=== PATIENT | female | born 1940 | race Caucasian/White ===

== ENCOUNTER 2016-06-30 13:07 | Inpatient (IN) | payer OTHER ==
--- NOTE | 2016-06-30 13:25 | PDOC ---
History of Present Illness - General History Source: Patient Exam Limitations: No Limitations - History of Present Illness Initial Comments: 06/30/16 14:03 The patient is a 75 year old female brought via EMS, with a significant past medical history of COPD on home O2 (2 liters), anemia, HTN, HLD and lower extremity DVT, who presents to the emergency department with shortness of breath for the last couple of days. She states that she has been having a cough as well for an undisclosed amount of time, that is dry in nature. She notes that she has been compliant with all her medication and has not been eating any salty foods. She also notes that she has had lower extremity swelling in the past. The patient denies chest pain, headache and dizziness. Denies fever, chills, nausea, vomit, diarrhea and constipation. Denies dysuria, frequency, urgency and hematuria. Allergies: None Past surgical history: None reported Social history: Former smoker PMD - Dr. Ahumada Cardiology - Dr. Basilio Pulmonology - Dr. Patel <Rubio Ny - Last Filed: 06/30/16 14:22> - General History Source: Patient, Old Records Exam Limitations: No Limitations <Maria Dolores Vieira - Last Filed: 06/30/16 15:18> - General Chief Complaint: Shortness of Breath Stated Complaint: DIFFICULTY BREATHING Time Seen by Provider: 06/30/16 13:25 Past History <Rubio Ny - Last Filed: 06/30/16 14:22> - Past Medical History Anemia: Yes (BLOOD TRANSFUSION) Asthma: No Cancer: No Cardiac Disorders: No CVA: No COPD: Yes (USES O2 AT HOME 2 LITERS) CHF: No Dementia: No Diabetes: No GI Disorders: Yes Disorders: No HTN: Yes Hypercholesterolemia: Yes Liver Disease: No Suicide Attempt (Hx): No Seizures: No Thyroid Disease: No - Surgical History Abdominal Surgery: No Appendectomy: No Cardiac Surgery: No Cholecystectomy: No Lung Surgery: No Neurologic Surgery: No Orthopedic Surgery: No - Psycho/Social/Smoking Cessation Hx Anxiety: No Suicidal Ideation: No Smoking Status: Yes Smoking History: Former smoker Have you smoked in the past 12 months: No Number of Cigarettes Smoked Daily: 0 If you are a former smoker, when did you quit?: Over 15 years ago Information on smoking cessation initiated: No Hx Alcohol Use: No Drug/Substance Use Hx: No Substance Use Type: None Hx Substance Use Treatment: No <IshaMaria Dolores - Last Filed: 06/30/16 15:18> - Past Medical History Allergies/Adverse Reactions: Allergies Allergy/AdvReac Type Severity Reaction Status Date / Time No Known Allergies Allergy Verified 06/30/16 13:14 Home Medications: Ambulatory Orders Albuterol Sulfate [Proair Hfa -] 1 - 2 inh PO PRN PRN 10/15/11 Fluticasone/Salmeterol [Advair 250-50 Diskus] 1 each IH BID 10/15/11 Tiotropium [place] [Spiriva] 18 mcg IH DAILY 10/15/11 Albuterol Sulfate Inhaler - [Ventolin HFA Inhaler -] 2 inh IH Q4H PRN #0 inh 20/04 Montelukast Na [Singulair -] 10 mg PO HS #0 tablet 10/20/11 Multivitamins [Multivit ([facility] Formulary)] 1 udtab PO DAILY #0 tab 10/20/11 Sodium Chloride Nasal [place] [[place] Nasal [place] -] 2 spray NS TID #0 spraybtl 10/20/11 Ferrous Sulfate [Feosol] 325 mg PO DAILY 01/18/12 Calcium Carbonate/Vitamin D3 [Calcium 600-Vit D3 200 Tablet] 1 each PO DAILY 10/13 Docosahexanoic Acid/Epa [Fish Oil Softgel] 1 each PO DAILY 11/05/12 Potassium Chloride [K-Dur] 20 meq PO DAILY #0 tab.er.prt 11/05/12 Alendronate Sodium [Fosamax] 35 mg PO WEEKLY 09/01/15 Atorvastatin Ca [Lipitor] 10 mg PO HS 09/01/15 Latanoprost 0.005% Eye Drops [Xalatan 0.005% Eye Drops -] 1 drop OU HS 09/01/15 Diltiazem Cd [Cardizem Cd -] 180 mg PO BID #60 cap.cd.24h 09/02/15 Torsemide 40 mg PO BID #120 tablet 09/02/15 Azithromycin 250 mg PO DAILY 06/30/16 Diltiazem Cd [Cardizem Cd -] 180 mg PO BID 06/30/16 Potassium Chloride [Klor-Con M20] 20 meq PO AM 06/30/16 Review of Systems - Review of Systems Able to Perform ROS?: Yes Comments:: 06/30/16 14:04 GENERAL/CONSTITUTIONAL: No fever or chills. No weakness. HEAD, EYES, EARS, NOSE AND THROAT: No change in vision. No ear pain or discharge. No sore throat. CARDIOVASCULAR: +Shortness of breath. No chest pain RESPIRATORY: +Cough. No wheezing, or hemoptysis. GASTROINTESTINAL: No nausea, vomiting, diarrhea or constipation. GENITOURINARY: No dysuria, frequency, or change in urination. MUSCULOSKELETAL: No joint or muscle swelling or pain. No neck or back pain. SKIN: No rash NEUROLOGIC: No headache, vertigo, loss of consciousness, or change in strength/ sensation. ENDOCRINE: No increased thirst. No abnormal weight change HEMATOLOGIC/LYMPHATIC: No anemia, easy bleeding, or history of blood clots. ALLERGIC/IMMUNOLOGIC: No hives or skin allergy. <Rubio Ny - Last Filed: 06/30/16 14:22> *Physical Exam - Vital Signs Last Vital Signs Temp Pulse Resp BP Pulse Ox 99.1 F 101 H 20 123/78 94 L 06/30/16 13:15 06/30/16 13:26 06/30/16 13:15 06/30/16 13:15 06/30/16 13:26 - Physical Exam Comments: 06/30/16 14:04 GENERAL: Awake, alert, and fully oriented, in no acute distress HEAD: No signs of trauma, normocephalic, atraumatic EYES: PERRLA, EOMI, sclera anicteric, conjunctiva clear ENT: Auricles normal inspection, hearing grossly normal, nares patent, oropharynx clear without exudates. Moist mucosa NECK: Normal ROM, supple, no lymphadenopathy, JVD, or masses LUNGS: +Distant breath sounds but equal bilaterally. No distress, speaks full sentences, clear to auscultation bilaterally HEART: Regular rate and rhythm, normal S1 and S2, no murmurs, rubs or gallops, peripheral pulses normal and equal bilaterally. ABDOMEN: Soft, nontender, normoactive bowel sounds. No guarding, no rebound. No masses EXTREMITIES: +2+ pitting edema bilaterally. Erythema of the distal fibular region left greater than right. Normal range of motion. No clubbing or cyanosis. NEUROLOGICAL: Cranial nerves II through XII grossly intact. Normal speech, normal gait, no focal sensorimotor deficits SKIN: Warm, Dry, normal turgor, no rashes or lesions noted <Rubio Ny - Last Filed: 06/30/16 14:22> - Vital Signs Last Vital Signs Temp Pulse Resp BP Pulse Ox 99.1 F 101 H 20 123/78 88 L 06/30/16 13:15 06/30/16 13:15 06/30/16 13:15 06/30/16 13:15 06/30/16 13:15 <Maria Dolores Vieira - Last Filed: 06/30/16 15:18> ED Treatment Course - RADIOLOGY Radiograph Interpretation: 06/30/16 14:22 Chest X-Ray Reviewed by: Dr. Jose Chavez Impression: No significant interval change or acute lung disease is present. <Rubio Ny - Last Filed: 06/30/16 14:22> - LABORATORY CBC & Chemistry Diagram: 06/30/16 13:45 06/30/16 13:45 <Maria Dolores Vieira - Last Filed: 06/30/16 15:18> Medical Decision Making - Medical Decision Making 06/30/16 14:27 75-year-old female with history of hypertension, anemia, COPD on home O2, DVT last year and CHF exacerbation who presents to the emergency department with three-day history of progressive shortness of breath and lower extremity swelling. Differential diagnosis includes but is not limited to: Pneumonia, influenza, ACS, CHF, COPD exacerbation, anemia, electrolyte abnormality, toxic/ metabolic derangement. Plan: 1. EKG 2. Chest x-ray 3. Labs 4. Urine analysis 5. Influenza PCR 6. DuoNeb treatment 7. Observe and reevaluate 06/30/16 15:16 Addendum: The labs were reviewed and are noted in the EMR. The hemoglobin is 6.2 which is significantly lower than her baseline. Rectal exam showed brown stool (hemoccult results are pending). CXR is negative for acute infiltrate. Will admit to telemetry for serial cardiac markers, anemia work-up and monitoring of SOB. <Maria Dolores Vieira - Last Filed: 06/30/16 15:18> *DC/Admit/Observation/Transfer - Attestations Scribe Attestion: 06/30/16 14:05 Documentation prepared by Rubio Ny, acting as medical doctor md for Maria Dolores Vieira MD <Rubio Ny - Last Filed: 06/30/16 14:22> - Discharge Dispostion Admit: Yes - Attestations Physician Attestion: 06/30/16 14:29 I, Dr. Maria Dolores Vieira, attest that the scribes documentation that appears above has been prepared under my direction and personally reviewed by me in its entirety. I confirmed that the note above accurately reflects all work, treatment, procedures, and medical decision-making performed by me. <Maria Dolores Vieira - Last Filed: 06/30/16 15:18> Diagnosis at time of Disposition: SOB (shortness of breath), Anemia, COPD exacerbation - Discharge Dispostion Condition at time of disposition: Stable - Referrals Referrals: Kaleb Ahumada MD [Primary Care Provider] -
[2016-06-30 13:32] VITALS: BMI 21.9
[2016-06-30] MEDS ORDERED: ALBUTEROL SO4 0.083% IH SOL 2.5 MG/3 ML VIAL.NEB. NEB ONE ×2 (13:44→22:12)
[2016-06-30] MEDS ORDERED: IPRATROPIUM BR 0.02% 0.5 MG/2.5 ML VIAL.NEB. NEB ONE (13:44)
[2016-06-30] MEDS ORDERED: ALBUTEROL SO4 2.5/IPRATROPIUM 0.5 INH SOL 3 ML VIAL.NEB. NEB ONE (13:47)
[2016-06-30 14:30] LABS: BASOPHIL 0.7 % (0-2.0); EOSINOPHIL 0.2 % (0-4.5); MCHC 28.4 g/dl (32.0-36.0); MEAN CELL VOLUME 59.7 fl (80-96); MEAN PLT VOLUME 8.5 fl (7.5-11.1); PLATELET COUNT 120 K/MM3 (134-434); RDW 21.8 % (11.6-15.6); WHITE BLOOD COUNT 9.4 K/mm3 (4.0-10.0)
[2016-06-30 14:33] LABS: MCH 16.9 pg (25.7-33.7)
[2016-06-30 14:57] LABS: ALBUMIN 3.7 g/dl (3.4-5.0); ANION GAP 10 (8-16); CALCIUM 9.4 mg/dL (8.5-10.1); CO2 38 mmol/L (21-32); CREATININE 0.8 mg/dL (0.55-1.02); GLUCOSE,RANDOM 86 mg/dL (74-106); SGOT/AST 25 U/L (15-37); SGPT/ALT 27 U/L (12-78)
[2016-06-30] MEDS ORDERED: predniSONE 20 MG TABLET (UD) PO ONE (15:01)
[2016-06-30 15:02] LABS: ALK PHOS 89 U/L (45-117); BILIRUBIN,TOTAL 0.3 mg/dL (0.2-1.0); TOT PROT 6.9 g/dl (6.4-8.2); TROPONIN I < 0.02 ng/ml (0.00-0.05)
[2016-06-30] MEDS ORDERED: predniSONE 20 MG TABLET (UD) ONE (15:29)
[2016-06-30 15:31] LABS: INR 0.96 (0.82-1.09); PROTHROMBIN TIME (PATIENT) 10.6 SEC (9.98-11.88)
[2016-06-30 15:34] LABS: ACTIVATED PTT 28.5 SECONDS (26.9-34.4)
[2016-06-30 15:38] LABS: ANISOCYTOSIS 3+; HYPOCHROMIA 4+; MICROCYTOSIS 3+
[2016-06-30 15:39] LABS: TARGET CELLS 1+
[2016-06-30] MEDS ORDERED: ALBUTEROL SO4 2.5/IPRATROPIUM 0.5 INH SOL 3 ML VIAL.NEB. NEB PRN (16:28)
--- NOTE | 2016-06-30 16:34 | HP ---
Admitting History and Physical - Primary Care Physician PCP: Kaleb Ahumada - Admission Chief Complaint: I couldn't breathe History of Present Illness: Ms Hadley is a very pleasant 75 year old female who comes in with difficulty breathing. She says it began about a week ago. At first it was minimal and noticed only on significant exertion, however it progressed to the point where she was feeling it constantly and at rest. She wears chronic oxygen and notes it was not helping the shortness of breath. She says she is unable to lie flat all the time and needs two pillows, this did not change. She noticed worsening swelling in her legs but that was minimal as well. She says that she was trying to treat this at home but the shortness of breath became so severe she needed to come in for further evaluation. She denies lightheadedness, dizziness, passing out, chest pain, coughing, nausea, vomiting, diarrhea, constipation, dark black stool, difficulty or pain on urination, change in color of her urine , or redness in her legs. She is still feeling short of breath now. History Source: Patient Limitations to Obtaining History: No Limitations - Past Medical History Cardiovascular: Yes: HTN Pulmonary: Yes: COPD Heme/Onc: Yes: Anemia Musculoskeletal: Yes: Osteoarthritis - Past Surgical History Past Surgical History: Yes: None - Smoking History Smoking history: Former smoker Have you smoked in the past 12 months: No Aproximately how many cigarettes per day: 0 If you are a former smoker, when did you quit?: Over 15 years ago - Alcohol/Substance Use Hx Alcohol Use: No History of Substance Use: reports: None - Social History Usual Living Arrangement: Yes: Alone ADL: Independent 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, , 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 History of Recent Travel: No Home Medications - Allergies Allergies/Adverse Reactions: Allergies Allergy/AdvReac Type Severity Reaction Status Date / Time No Known Allergies Allergy Verified 06/30/16 13:14 - Home Medications Home Medications: Ambulatory Orders Albuterol Sulfate [Proair Hfa -] 1 - 2 inh PO PRN PRN 10/15/11 Fluticasone/Salmeterol [Advair 250-50 Diskus] 1 each IH BID 10/15/11 Tiotropium [place] [Spiriva] 18 mcg IH DAILY 10/15/11 Montelukast Na [Singulair -] 10 mg PO HS #0 tablet 10/20/11 Multivitamins [Multivit ([facility] Formulary)] 1 udtab PO DAILY #0 tab 10/20/11 Sodium Chloride Nasal [place] [[place] Nasal [place] -] 2 spray NS TID #0 spraybtl 10/20/11 Ferrous Sulfate [Feosol] 325 mg PO DAILY 01/18/12 Calcium Carbonate/Vitamin D3 [Calcium 600-Vit D3 200 Tablet] 1 each PO DAILY 10/13 Docosahexanoic Acid/Epa [Fish Oil Softgel] 1 each PO DAILY 11/05/12 Potassium Chloride [K-Dur] 20 meq PO DAILY #0 tab.er.prt 11/05/12 Alendronate Sodium [Fosamax] 35 mg PO KELLER 09/01/15 Atorvastatin Ca [Lipitor] 10 mg PO HS 09/01/15 Latanoprost 0.005% Eye Drops [Xalatan 0.005% Eye Drops -] 1 drop OU HS 09/01/15 Torsemide 40 mg PO BID #120 tablet 09/02/15 Diltiazem Cd [Cardizem Cd -] 180 mg PO BID 06/30/16 Diphenhydramine HCl [Benadryl -] 25 mg PO Q6H PRN 06/30/16 Pantoprazole Sodium 40 mg PO DAILY 06/30/16 Family Disease History - Family Disease History Family Disease History: Heart Disease: Father, Other: Mother (Alzheimers Dementia) Review of Systems Findings/Remarks: Full review of systems obtained, as per HPI and otherwise negative Physical Examination Vital Signs: Vital Signs Temperature 99.1 F 06/30/16 13:15 Pulse Rate 101 H 06/30/16 13:26 Respiratory Rate 20 06/30/16 13:15 Blood Pressure 123/78 06/30/16 13:15 O2 Sat by Pulse Oximetry (%) 94 L 06/30/16 13:26 Constitutional: Yes: Well Nourished, No Distress, Calm, Pallor Eyes: Yes: Conjunctiva Clear, EOM Intact, PERRL HENT: Yes: Atraumatic, Normocephalic Cardiovascular: Yes: Regular Rate and Rhythm. No: Gallop, Murmur, Rub Respiratory: Yes: Regular, CTA Bilaterally, On Nasal O2. No: Rales, Rhonchi, Wheezes Gastrointestinal: Yes: Normal Bowel Sounds, Soft. No: Distention, Tenderness Extremities: Yes: WNL Edema: Yes Edema: LLE: 1+, RLE: 1+ Labs: CBC, BMP 06/30/16 13:45 06/30/16 13:45 Imaging - Results Chest X-ray: Report Reviewed, Image Reviewed EKG: Image Reviewed Problem List - Problems (1) Anemia Assessment/Plan: -symptomatic anemia with shortness of breath -has history of anemia, on iron -will check anemia labs -stool for occult blood -hematology consult -transfusion ordered by ER physician Code(s): D64.9 - ANEMIA, UNSPECIFIED (2) SOB (shortness of breath) Assessment/Plan: -most likely secondary to anemia -however will admit to telemetry and rule out for ACS -cardiac enzymes x3, first set negative Code(s): R06.02 - SHORTNESS OF BREATH (3) CHF (congestive heart failure) Assessment/Plan: -patient with slightly increased swelling in her lower extremities per history -chest x-ray clear, SOB not from CHF exacerbation -continue torsemide -cardiology consult Code(s): I50.9 - HEART FAILURE, UNSPECIFIED (4) Hypertension Assessment/Plan: -continue diltiazem and torsemide -monitor Code(s): I10 - ESSENTIAL (PRIMARY) HYPERTENSION (5) COPD (chronic obstructive pulmonary disease) Assessment/Plan: -baseline -continue home regimen -consult Dr Patel, outpatient invoice clerk Code(s): J44.9 - CHRONIC OBSTRUCTIVE PULMONARY DISEASE, UNSPECIFIED
--- NOTE | 2016-06-30 17:44 | CON.CARD ---
Consult Consult Specialty:: cardio Referred by:: claudia Reason for Consultation:: sob - History of Present Illness Chief Complaint: sob History of Present Illness: 75 yo female here with progressive sob. sx's have worsened from mostly on exertion to now also at rest. her usual home O2 is not helping relieve her sx's started noticing the sob about 1 week ago but signif worse the past few days and today was much worse. wheezing the past couple of days as well. legs much more swollen than usual (baseline is feet only). says her usual wt runs 120-122 lbs, hasn't checked recently. thinks abdomen is slightly swollen/distended as well. scattered mild cough, dry. sore throat x 3d; no fever/chills; felt very tired today; nausea/dry heaves yest no cp/pressure/heaviness at all pt here 09/15 with sob. treated for both a.e. copd and acute diast chf at that time. lasix 80 iv bid given (had been on lasix 40 po bid as outpt)--labs were stable with this tx for 2-3d, then d/c'd after brief stay (? sent out on torsemide 40 bid per d/c summary). 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 History of Recent Travel: No Home Medications - Allergies Allergies/Adverse Reactions: Allergies Allergy/AdvReac Type Severity Reaction Status Date / Time No Known Allergies Allergy Verified 06/30/16 13:14 - Home Medications Home Medications: Ambulatory Orders Albuterol Sulfate [Proair Hfa -] 1 - 2 inh PO PRN PRN 10/15/11 Fluticasone/Salmeterol [Advair 250-50 Diskus] 1 each IH BID 10/15/11 Tiotropium [place] [Spiriva] 18 mcg IH DAILY 10/15/11 Montelukast Na [Singulair -] 10 mg PO HS #0 tablet 10/20/11 Multivitamins [Multivit ([facility] Formulary)] 1 udtab PO DAILY #0 tab 10/20/11 Sodium Chloride Nasal [place] [[place] Nasal [place] -] 2 spray NS TID #0 spraybtl 10/20/11 Ferrous Sulfate [Feosol] 325 mg PO DAILY 01/18/12 Calcium Carbonate/Vitamin D3 [Calcium 600-Vit D3 200 Tablet] 1 each PO DAILY 10/13 Docosahexanoic Acid/Epa [Fish Oil Softgel] 1 each PO DAILY 11/05/12 Potassium Chloride [K-Dur] 20 meq PO DAILY #0 tab.er.prt 11/05/12 Alendronate Sodium [Fosamax] 35 mg PO KELLER 09/01/15 Atorvastatin Ca [Lipitor] 10 mg PO HS 09/01/15 Latanoprost 0.005% Eye Drops [Xalatan 0.005% Eye Drops -] 1 drop OU HS 09/01/15 Torsemide 40 mg PO BID #120 tablet 09/02/15 Diltiazem Cd [Cardizem Cd -] 180 mg PO BID 06/30/16 Diphenhydramine HCl [Benadryl -] 25 mg PO Q6H PRN 06/30/16 Pantoprazole Sodium 40 mg PO DAILY 06/30/16 Family Disease History - Family Disease History Family Disease History: Heart Disease: Father, Other: Mother (Alzheimers Dementia) Review of Systems - Review of Systems Constitutional: denies: Chills, Fever Eyes: denies: Eye Pain HENT: denies: Nasal Congestion Neck: denies: Stiffness Cardiovascular: denies: Palpitations Respiratory: denies: Orthopnea, PND Gastrointestinal: denies: Diarrhea, Rectal Bleeding Genitourinary: denies: Burning, Hematuria Musculoskeletal: denies: Muscle Pain Integumentary: denies: Rash Neurological: denies: Numbness, Seizure, Syncope Endocrine: denies: Excessive Sweating Hematology/Lymphatic: denies: Excessive Bleeding Vital Signs: Vital Signs Temperature 99.1 F 06/30/16 13:15 Pulse Rate 94 H 06/30/16 16:35 Respiratory Rate 17 06/30/16 16:35 Blood Pressure 119/63 06/30/16 16:35 O2 Sat by Pulse Oximetry (%) 100 06/30/16 16:35 Constitutional: Yes: Well Nourished, No Distress Eyes: No: Sclera Icterus HENT: No: Nasal Congestion Neck: No: Decreased ROM Respiratory: Yes: CTA Bilaterally. No: Accessory Muscle Use, Rales (-), Wheezes Gastrointestinal: Yes: Normal Bowel Sounds. No: Distention, Hepatomegaly, Palpable Mass, Tenderness Cardiovascular: Yes: Regular Rate and Rhythm JVD: No Carotid Bruit: No PMI: Non-Displaced Heart Sounds: Yes: S1, S2. No: Gallop Murmur: No: Systolic Murmur, Diastolic Murmur Musculoskeletal: Yes: Other (No kyphosis) Extremities: No: Cold, Cyanosis Edema: Yes (2+ pretibs bilat) Peripheral Pulses: 2+ Left Carotid, 2+ Right Carotid, 2+ Left Doralis Pedis, 2+ Right Dorsalis Pedis Integumentary: No: Jaundice Neurological: Yes: Alert, Oriented (x3) Psychiatric: No: Agitated - Other Data Labs, Other Data: INR, PTT INR 0.96 (0.82-1.09) 06/30/16 15:00 Laboratory Tests 08/30/15 09/02/15 06/30/16 21:30 06:00 13:45 WBC 9.4 Hgb 8.9 L 6.2 L* D Plt Count 120 L D Sodium Potassium Carbon Dioxide BUN Creatinine AST ALT Creatine Kinase Troponin I B-Natriuretic Peptide 611.07 H 06/30/16 13:45 WBC Hgb Plt Count Sodium 140 Potassium 3.5 Carbon Dioxide 38 H BUN 18 D Creatinine 0.8 AST 25 ALT 27 Creatine Kinase 88 Troponin I < 0.02 B-Natriuretic Peptide 645.36 H ekg 06/30 (ER): NSR, normal asix/interv; WNL Imaging - Results Chest X-ray: Report Reviewed, Image Reviewed Assessment/Plan Echo 08/16: nl LV/EF; RV tds; nl LA; valves WNL; RVSP 40-50 acute SOB, acute diast chf: -BNP 600s, similar to when was here with probable chf 08/16 -? sx's due to worsening anemia with hgb 6 -CXR with no vasc redistribution pattern, no effusions--diffuse incr'd markings ? chronic (copd)--incr'd vs prior 08/16 on my review but ? technique-related ( i.e. differences in penetratino); no signif cardiomegaly -leg swelling is signif incr'd lately (? abdomen as well per pt), raising suspicion for chf though i cannot appreciate JVD on exam -has been complying with torsemide 40 bid at home she says -will start lasix 80 iv bid (diuresed well with this last time here) -close f/u of daily wts and BMP--low threshold to hold diuretics if bun/creat bumps (in which case her sx's are likely related to anemia) -no suspicion of ACS, enzymes neg x1 and ecg WNL mild pulm HTN: -estimated RVSP 40-50 on recent echo, RV not well seen on that report -? sec to LV diast chf vs ? hypoxic chronic lung dz (on home O2 for copd)-- these 2 dx's are extremely likely to represent the etiology of her pulm htn and tx directed at both (i.e. diuretics and supplemental O2/airways tx) is all that is indicated here COPD, ? with a.e.: -+ wheezing and mild URI sx's -defer to dr taylor +/- pulm as indicated, regarding airways-specific tx's -check ABG HTN: -well controlled -cont home meds anemia, chronic: -baseline hgb runs 8s-9s -currently 6's, likely symptomatic (sob) -PRBCs +/- further w/u of etiology per dr taylor NO NEED FOR TELEMETRY MONITORING
[2016-06-30] MEDS ORDERED: FUROSEMIDE 40 MG/4 ML INJECTABLE VIAL ONE (18:43)
[2016-06-30] MEDS: FUROSEMIDE 40 MG/4 ML INJECTABLE VIAL IVPUSH SCH (18:55)
[2016-06-30] MEDS ORDERED: TORSEMIDE 20 MG TABLET (FP) PO SCH (22:00)
[2016-06-30] MEDS: ACLIDINIUM BROMIDE 400 MCG/INH AERO.POWD IH SCH (22:22)
[2016-06-30] MEDS: MONTELUKAST NA 10 MG TABLET PO SCH (22:22)
[2016-06-30] MEDS: BUDESONIDE/FORMETEROL FUMARATE 80/4.5 mcg INHALER IH SCH (22:22)
[2016-06-30] MEDS: ATORVASTATIN CA 10 MG TABLET (FP) PO SCH (22:22)
[2016-06-30] MEDS: LATANOPROST 0.005% OPHTH SOLN 2.5ML BOTTLE OU SCH (22:23)
[2016-06-30] MEDS: SODIUM CHLORIDE NASAL SPRAY 44 ML BOTTLE NS SCH (22:23)
--- NOTE | 2016-06-30 22:37 | CONSULT ---
Consult Consult Specialty:: Oncology-hematology Referred by:: Dr. Zuniga Reason for Consultation:: Hypochromic, Microcytic anemia - History Source History Provided By: Patient Limitations to Obtaining History: No Limitations - Past Medical History Cardio/Vascular: Yes: HTN Pulmonary: Yes: COPD, Other (oxygen at home) Gastrointestinal: Yes: Other (History of ulcer disease diagnosed 3 years ago when patient presented with anemia) ...: No Heme/Onc: Yes: Anemia Musculoskeletal: Yes: Osteoarthritis - Past Surgical History Past Surgical History: Yes: None - Alcohol/Substance Use Hx Alcohol Use: No History of Substance Use: reports: None - Smoking History Smoking history: Former smoker Have you smoked in the past 12 months: No Aproximately how many cigarettes per day: 0 If you are a former smoker, when did you quit?: Over 15 years ago - Social History ADL: Independent 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, , 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 History of Recent Travel: No Home Medications - Allergies Allergies/Adverse Reactions: Allergies Allergy/AdvReac Type Severity Reaction Status Date / Time No Known Allergies Allergy Verified 06/30/16 13:14 - Home Medications Home Medications: Ambulatory Orders Albuterol Sulfate [Proair Hfa -] 1 - 2 inh PO PRN PRN 10/15/11 Fluticasone/Salmeterol [Advair 250-50 Diskus] 1 each IH BID 10/15/11 Tiotropium [place] [Spiriva] 18 mcg IH DAILY 10/15/11 Montelukast Na [Singulair -] 10 mg PO HS #0 tablet 10/20/11 Multivitamins [Multivit ([facility] Formulary)] 1 udtab PO DAILY #0 tab 10/20/11 Sodium Chloride Nasal [place] [[place] Nasal [place] -] 2 spray NS TID #0 spraybtl 10/20/11 Ferrous Sulfate [Feosol] 325 mg PO DAILY 01/18/12 Calcium Carbonate/Vitamin D3 [Calcium 600-Vit D3 200 Tablet] 1 each PO DAILY 10/13 Docosahexanoic Acid/Epa [Fish Oil Softgel] 1 each PO DAILY 11/05/12 Potassium Chloride [K-Dur] 20 meq PO DAILY #0 tab.er.prt 11/05/12 Alendronate Sodium [Fosamax] 35 mg PO KELLER 09/01/15 Atorvastatin Ca [Lipitor] 10 mg PO HS 09/01/15 Latanoprost 0.005% Eye Drops [Xalatan 0.005% Eye Drops -] 1 drop OU HS 09/01/15 Torsemide 40 mg PO BID #120 tablet 09/02/15 Diltiazem Cd [Cardizem Cd -] 180 mg PO BID 06/30/16 Diphenhydramine HCl [Benadryl -] 25 mg PO Q6H PRN 06/30/16 Pantoprazole Sodium 40 mg PO DAILY 06/30/16 Family Disease History - Family Disease History Family Disease History: Heart Disease: Father, Other: Mother (Alzheimers Dementia) Other Family History: No family history of ca Review of Systems - Review of Systems Constitutional: reports: Weakness. denies: Fever, Loss of Appetite, Night Sweats Eyes: denies: Double Vision, Recent Change in Vision HENT: reports: Difficult Swallowing. denies: Epistaxis, Throat Pain Neck: denies: Pain on Movement, Stiffness, Tenderness Cardiovascular: reports: Shortness of Breath. denies: Chest Pain Respiratory: reports: Exercise Intolerance, SOB, SOB on Exertion. denies: Cough , Hemoptysis Gastrointestinal: denies: Abdominal Pain, Bloating, Constipation, Diarrhea, Melena, Nausea, Rectal Bleeding, Vomiting Genitourinary: denies: Burning, Dysuria, Flank Pain, Frequency, Incontinence Musculoskeletal: denies: Back Pain, Extremity Pain, Muscle Pain Integumentary: denies: Blister, Bruising, Eczema, Erythema Neurological: reports: No Symptoms Endocrine: reports: No Symptoms Hematology/Lymphatic: denies: Easily Bruised, Excessive Bleeding, Swollen Glands Psychiatric: reports: No Symptoms Physical Exam Vital Signs: Vital Signs Temperature 98.8 F 06/30/16 19:44 Pulse Rate 102 H 06/30/16 19:44 Respiratory Rate 20 06/30/16 19:44 Blood Pressure 113/62 06/30/16 19:44 O2 Sat by Pulse Oximetry (%) 95 06/30/16 19:44 Constitutional: Yes: Mild Distress Eyes: Yes: PERRL. No: Diplopia, Ptosis, Sclera Icterus HENT: Yes: Atraumatic, Normocephalic. No: Hoarseness, Tonsillar Exudate Neck: Yes: Supple, Trachea Midline. No: Lymphadenopathy, Thyromegaly Cardiovascular: Yes: Regular Rate and Rhythm Respiratory: Yes: Rales, Wheezes Gastrointestinal: Yes: Normal Bowel Sounds, Soft. No: Hepatomegaly, Palpable Mass, Splenomegaly Renal/: No: Anuria, CVA Tenderness - Left Breast(s): Yes: WNL, Left, Right Musculoskeletal: No: Back Pain, Joint Swelling, Muscle Pain Extremities: No: Cold, Cool, Cyanosis Edema: LLE: 3+, RLE: 3+ Integumentary: No: Bruising, Erythema Neurological: Yes: WNL ...Motor Strength: WNL Psychiatric: Yes: WNL Problem List - Problems (1) Anemia Assessment/Plan: History of ulcer disease diagnosed 3 years ago when patient underwent last EGD and colonoscopy. Treated medically with PPI's. Last saw PCP, Dr. Ahumada several months ago and was not told of anemia. Presents now with hypochromic, microcytic anemia. Denies GI complaints of nausea , diarrhea, constipation, melena, hematochezia, abdominal pains. Likely diagnosis is blood loss anemia causing symptomatic SOB and dyspnea. Fe++ studies pending. To check for celiac disease and for HbE. Will obtain stool guaics and evaluate for hemolysis . Will need GI assessment. Code(s): D64.9 - ANEMIA, UNSPECIFIED
[2016-06-30] MEDS: ALBUTEROL SO4 0.5 % INH SOLN 2.5 MG/0.5 ML VIAL.NEB. NEB PRN (22:47)
[2016-06-30] MEDS ORDERED: PT OWN MED DRAWER 7, Y5N ONE (22:50)
[2016-07-01 00:28] LABS: TROPONIN I < 0.02 ng/ml (0.00-0.05)
[2016-07-01] MEDS: FUROSEMIDE 40 MG/4 ML INJECTABLE VIAL IVPUSH SCH ×2 (06:49→14:03)
[2016-07-01] MEDS: SODIUM CHLORIDE NASAL SPRAY 44 ML BOTTLE NS SCH ×3 (06:50→22:01)
[2016-07-01 07:46] LABS: BASOPHIL 0.4 % (0-2.0); MCH 20.8 pg (25.7-33.7); MEAN CELL VOLUME 67.1 fl (80-96); MEAN PLT VOLUME 8.5 fl (7.5-11.1); NEUTROPHILS 79.8 % (42.8-82.8); PLATELET COUNT 102 K/MM3 (134-434); RDW 29.8 % (11.6-15.6); WHITE BLOOD COUNT 8.5 K/mm3 (4.0-10.0)
[2016-07-01 08:23] LABS: CALCIUM 7.8 mg/dL (8.5-10.1)
[2016-07-01 08:29] LABS: URINE APPEARANCE CLEAR; URINE BILIRUBIN NEGATIVE (NEGATIVE); URINE BLOOD NEGATIVE (NEGATIVE); URINE COLOR STRAW; URINE GLUCOSE (UA) NEGATIVE (NEGATIVE); URINE KETONE NEGATIVE (NEGATIVE); URINE LEUK ESTERASE NEGATIVE (NEGATIVE); URINE NITRITE NEGATIVE (NEGATIVE); URINE PROTEIN NEGATIVE (NEGATIVE); URINE UROBILINOGEN NEGATIVE E.U./dl (0.2-1.0)
[2016-07-01 08:31] LABS: ANION GAP 8 (8-16); CO2 37 mmol/L (21-32); CREATININE 0.8 mg/dL (0.55-1.02); GLUCOSE,RANDOM 99 mg/dL (74-106); LDH 193 U/L (84-246); MAGNESIUM 2.6 mg/dL (1.8-2.4); PHOSPHOROUS 4.1 mg/dL (2.5-4.9); TROPONIN I < 0.02 ng/ml (0.00-0.05)
[2016-07-01] MEDS ORDERED: PANTOPRAZOLE 40 MG TABLET (FP) PO SCH (10:00)
[2016-07-01] MEDS ORDERED: PATIENT'S OWN MEDICATION (NON-FORMULARY) (Docosahexanoic Acid/Epa [Fish Oil Softgel] 1 EAC PO SCH (10:00)
[2016-07-01] MEDS ORDERED: PT OWN MED DRAWER 7, Y5N ONE ×3 (10:34→21:25)
[2016-07-01] MEDS: MULTIVITAMINS (DAILY MVI) TABLET (FP) PO SCH (10:36)
[2016-07-01] MEDS: BUDESONIDE/FORMETEROL FUMARATE 80/4.5 mcg INHALER IH SCH ×2 (10:37→22:02)
[2016-07-01] MEDS: CALCIUM 500MG/VIT-D 200 UNITS COMBO TABLET (FP) PO SCH (10:37)
[2016-07-01] MEDS: ACLIDINIUM BROMIDE 400 MCG/INH AERO.POWD IH SCH (10:37)
[2016-07-01] MEDS: POTASSIUM CHLORIDE TABS 20 MEQ TABLET.ER (FP) PO SCH (10:37)
[2016-07-01] MEDS: FERROUS SO4 325 MG TABLET (FP) PO SCH (10:37)
--- NOTE | 2016-07-01 10:52 | PN ---
Progress Note (short form) - Note Progress Note: s: no cp sob palps dizzy o: Vital Signs Period Temp Pulse Resp BP Sys/Ellis Pulse Ox Last 24 Hr 98.0 F-99.1 F 92-110 17-20 113-127/62-78 88-100 Constitutional: Yes: Well Nourished, No Distress Eyes: No: Sclera Icterus Respiratory: Yes: CTA Bilaterally. No: Accessory Muscle Use Gastrointestinal: Yes: Normal Bowel Sounds. No: Distention, Hepatomegaly, Palpable Mass, Tenderness Cardiovascular: Yes: Regular Rate and Rhythm JVD: No Heart Sounds: Yes: S1, S2. No: Gallop Murmur: No: Systolic Murmur, Diastolic Murmur Extremities: No: Cold, Cyanosis Edema: Yes (1-2+ pretibs bilat) Integumentary: No: Jaundice Neurological: Yes: Alert, Oriented (x3) Psychiatric: No: Agitated Current Medications Generic Name Dose Route Start Last Admin Trade Name Freq PRN Reason Stop Dose Admin Aclidinium [place] 1 puff 06/30/16 22:00 07/01/16 10:37 Tudorza - IH 1 puff BID JEANNA Administration Albuterol Sulfate 1 amp 06/30/16 16:35 06/30/16 22:47 Ventolin 0.5% - NEB 1 amp Q6H PRN Administration SHORT OF BREATH/WHEEZING Atorvastatin Calcium 10 mg 06/30/16 22:00 06/30/16 22:22 Lipitor - PO 10 mg HS JEANNA Administration Budesonide/Formoterol Fumarate 2 puff 06/30/16 22:00 07/01/16 10:37 Symbicort 80/4.5mcg - IH 2 inh BID JEANNA Administration Calcium Carbonate/Cholecalciferol 1 tab 07/01/16 10:00 07/01/16 10:37 Os-[place] 500+D - PO 1 tab DAILY JEANNA Administration Diltiazem HCl 180 mg 06/30/16 22:00 07/01/16 10:37 Cardizem Cd - PO 180 mg BID JEANNA Administration Ferrous Sulfate 325 mg 07/01/16 10:00 07/01/16 10:37 Feosol - PO 325 mg DAILY JEANNA Administration Furosemide 80 mg 06/30/16 18:15 07/01/16 06:49 Lasix Injection - IVPUSH 80 mg BID@0600,1400 JEANNA Administration Latanoprost 1 drop 06/30/16 22:00 06/30/16 22:23 Xalatan 0.005% Eye Drops - OU 1 drop HS JEANNA Administration Montelukast Sodium 10 mg 06/30/16 22:00 06/30/16 22:22 Singulair - PO 10 mg HS JEANNA Administration Multivitamins/Minerals/Vitamin C 1 tab 07/01/16 10:00 07/01/16 10:36 Tab-A-Vit - PO 1 tab DAILY JEANNA Administration Non-Formulary Medication 1 each 07/01/16 10:00 Docosahexanoic Acid/Epa [Fish Oil Softgel] PO DAILY JEANNA Pantoprazole Sodium 40 mg 07/01/16 10:00 07/01/16 10:37 Protonix - PO 40 mg DAILY JEANNA Administration Potassium Chloride 20 meq 07/01/16 10:00 07/01/16 10:37 K-Dur - PO 20 meq DAILY JEANNA Administration Sodium Chloride 2 spray 06/30/16 22:00 07/01/16 06:50 [place] Nasal [place] - NS 2 spray TID JEANNA Administration CBC, BMP 07/01/16 06:50 07/01/16 06:50 ekg 06/30 (ER): NSR, normal asix/interv; WNL Echo 08/16: nl LV/EF; RV tds; nl LA; valves WNL; RVSP 40-50 Assessment/Plan acute SOB, acute diast chf: -BNP 600s, similar to when was here with probable chf 08/16 -? sx's due to worsening anemia with hgb 6 -CXR with no sig chf -leg swelling is signif incr'd lately (? abdomen as well per pt), raising suspicion for chf though cannot appreciate JVD on exam -has been complying with torsemide 40 bid at home she says -will start lasix 80 iv bid (diuresed well with this last time here) -close f/u of daily wts and BMP--low threshold to hold diuretics if bun/creat bumps (in which case her sx's are likely more related to anemia) -no suspicion of ACS, enzymes neg x3 and ecg unremarkable mild pulm HTN: -estimated RVSP 40-50 on recent echo, RV not well seen on that report -? sec to LV diast chf vs ? hypoxic chronic lung dz (on home O2 for copd)-- these 2 dx's are extremely likely to represent the etiology of her pulm htn and tx directed at both (i.e. diuretics and supplemental O2/airways tx) is all that is indicated here COPD, ? with a.e.: -+ wheezing and mild URI sx's -defer to dr taylor +/- pulm as indicated, regarding airways-specific tx's HTN: -well controlled -cont home meds anemia, chronic: -baseline hgb runs 8s-9s -currently 6's on admit, likely symptomatic (sob) -today hgb in 7's after prbcs -PRBCs +/- further w/u of etiology per dr taylor, +/-GI -Pt has no cardiac contraindications (intermediate risk) to EGD/FOC if needed for anemia workup
[2016-07-01] MEDS: ALBUTEROL SO4 0.5 % INH SOLN 2.5 MG/0.5 ML VIAL.NEB. NEB PRN ×2 (12:24→18:10)
--- NOTE | 2016-07-01 13:28 | PN ---
Progress Note, Physician Chief Complaint: Ms Hadley says she is feeling better but still with dyspnea on exertion. No cp or n/v. - Current Medication List Current Medications: Active Medications Aclidinium [place] ([place]udorza -) 1 puff IH BID [facility] Last Admin: 07/01/16 10:37 Dose: 1 puff Albuterol Sulfate (Ventolin 0.5% -) 1 amp NEB Q6H PRN PRN Reason: SHORT OF BREATH/WHEEZING Last Admin: 07/01/16 12:24 Dose: 1 amp Atorvastatin Calcium (Lipitor -) 10 mg PO HS [facility] Last Admin: 06/30/16 22:22 Dose: 10 mg Budesonide/Formoterol Fumarate (Symbicort 80/4.5mcg -) 2 puff IH BID [facility] Last Admin: 07/01/16 10:37 Dose: 2 inh Calcium Carbonate/Cholecalciferol (Os-Misha 500+D -) 1 tab PO DAILY [facility] Last Admin: 07/01/16 10:37 Dose: 1 tab Diltiazem HCl (Cardizem Cd -) 180 mg PO BID [facility] Last Admin: 07/01/16 10:37 Dose: 180 mg Ferrous Sulfate (Feosol -) 325 mg PO DAILY [facility] Last Admin: 07/01/16 10:37 Dose: 325 mg Furosemide (Lasix Injection -) 80 mg IVPUSH BID@0600,1400 [facility] Last Admin: 07/01/16 06:49 Dose: 80 mg Latanoprost (Xalatan 0.005% Eye Drops -) 1 drop OU [facility] Last Admin: 06/30/16 22:23 Dose: 1 drop Montelukast Sodium (Singulair -) 10 mg PO HS [facility] Last Admin: 06/30/16 22:22 Dose: 10 mg Multivitamins/Minerals/Vitamin C (Tab-A-Vit -) 1 tab PO DAILY [facility] Last Admin: 07/01/16 10:36 Dose: 1 tab Pantoprazole Sodium (Protonix -) 40 mg PO DAILY [facility] Last Admin: 07/01/16 10:37 Dose: 40 mg Potassium Chloride (K-Dur -) 20 meq PO DAILY [facility] Last Admin: 07/01/16 10:37 Dose: 20 meq Sodium Chloride ([place] Nasal [place] -) 2 spray NS TID [facility] Last Admin: 07/01/16 06:50 Dose: 2 spray - Objective Vital Signs: Vital Signs Temperature 98.0 F 07/01/16 09:00 Pulse Rate 93 H 07/01/16 09:00 Respiratory Rate 18 07/01/16 09:00 Blood Pressure 127/68 07/01/16 09:00 O2 Sat by Pulse Oximetry (%) 96 06/30/16 22:00 Constitutional: Yes: Well Nourished, No Distress, Calm Cardiovascular: Yes: Regular Rate and Rhythm. No: Gallop, Murmur, Rub Respiratory: Yes: Regular, CTA Bilaterally, On Nasal O2. No: Rales, Rhonchi, Wheezes Gastrointestinal: Yes: Normal Bowel Sounds, Soft. No: Distention, Tenderness Extremities: Yes: WNL Edema: Yes Edema: LLE: 1+, RLE: 1+ Labs: CBC, BMP 07/01/16 06:50 07/01/16 06:50 INR, PTT INR 0.96 (0.82-1.09) 06/30/16 15:00 Problem List - Problems (1) Anemia Code(s): D64.9 - ANEMIA, UNSPECIFIED (2) SOB (shortness of breath) Code(s): R06.02 - SHORTNESS OF BREATH (3) CHF (congestive heart failure) Code(s): I50.9 - HEART FAILURE, UNSPECIFIED (4) Hypertension Code(s): I10 - ESSENTIAL (PRIMARY) HYPERTENSION (5) COPD (chronic obstructive pulmonary disease) Code(s): J44.9 - CHRONIC OBSTRUCTIVE PULMONARY DISEASE, UNSPECIFIED Assessment/Plan (1) Anemia Assessment/Plan: -s/p 2 units but still symptomatic -will transfuse 3rd unit today -appreciate hematology assistance -await labs and occult blood in stool -consult GI Code(s): D64.9 - ANEMIA, UNSPECIFIED (2) SOB (shortness of breath) Assessment/Plan: -improved but still present -transfuse as above -ACS ruled out Code(s): R06.02 - SHORTNESS OF BREATH (3) CHF (congestive heart failure) Assessment/Plan: -cardiology consult and note reviewed -on IV lasix 80mg bid Code(s): I50.9 - HEART FAILURE, UNSPECIFIED (4) Hypertension Assessment/Plan: -continue diltiazem and lasix -monitor Code(s): I10 - ESSENTIAL (PRIMARY) HYPERTENSION (5) COPD (chronic obstructive pulmonary disease) Assessment/Plan: -pulmonary consulted Code(s): J44.9 - CHRONIC OBSTRUCTIVE PULMONARY DISEASE, UNSPECIFIED
--- NOTE | 2016-07-01 15:54 | PN ---
Teaching Attending Note Name of Resident: Mary Barber ATTENDING PHYSICIAN STATEMENT I saw and evaluated the patient. I reviewed the resident's note and discussed the case with the resident. I agree with the resident's findings and plan as documented. PULMONARY CONSULTATION IMP ACUTE ON CHRONIC HYPOXEMIC RESPIRATORY FAILURE ADVANCED COPD ON O2 SEVERE ANEMIA ?CHF GUIAC + STOOLS HTN PLAN INHALED BRONCHODILATORS O2 TRANSFUSE LASIX GI EVALUATION MONITOR H+H Problem List - Problems (1) Anemia Code(s): D64.9 - ANEMIA, UNSPECIFIED (2) COPD (chronic obstructive pulmonary disease) Code(s): J44.9 - CHRONIC OBSTRUCTIVE PULMONARY DISEASE, UNSPECIFIED (3) SOB (shortness of breath) Code(s): R06.02 - SHORTNESS OF BREATH (4) CHF (congestive heart failure) Code(s): I50.9 - HEART FAILURE, UNSPECIFIED (5) Hypertension Code(s): I10 - ESSENTIAL (PRIMARY) HYPERTENSION (6) Acute on chronic respiratory failure with hypoxemia Code(s): J96.21 - ACUTE AND CHRONIC RESPIRATORY FAILURE WITH HYPOXIA
--- NOTE | 2016-07-01 16:02 | CONSULT ---
Consultation: REQUESTING PROVIDER: CONSULT REQUEST: We have been asked to medically evaluate this patient for sob. HISTORY OF PRESENT ILLNESS: This is a 75 yo F former smoker with PMH of COPD, anemia, HTN, and OA, who presents due to worsening sob x 2w. At baseline patient is O2 dependent 2 L and had dyspnea at rest. 2 weeks ago she started havign rhinorrhea and sore throat as well as worsening sob. She also noticed increased LE edema and orthopnea. She has had similar symptoms years prior. She states that in 1999 she had her last EGD and colonoscopy, at which time a bleeding gastric ulcer was discovered. She denies melena, hematochesia or hematemesis. Shje denies f/c, abd pain, chest pain, n/v, diarrhea, dysuria or hematuria. She is on daily Fe supplements. She received 2 L pRBC. She now feels better and reports reduced LE edema. Ambulating to bathroom on 2L NC REVIEW OF SYSTEMS: CONSTITUTIONAL: Absent: fever, chills, loss of appetite, weight change HEENT: Absent: difficulty swallowing, visual changes CARDIOVASCULAR: Absent: chest pain, syncope, palpitations RESPIRATORY: Absent: stridor, hemoptysis GASTROINTESTINAL: Absent: abdominal pain, abdominal distension, nausea, vomiting, diarrhea, constipation, melena, hematochezia GENITOURINARY: Absent: dysuria, hematuria MUSCULOSKELETAL: Absent: back pain, neck pain SKIN: Absent: rash, itching, pallor HEMATOLOGIC/IMMUNOLOGIC: Absent: easy bleeding, easy bruising ENDOCRINE: Absent: heat intolerance, cold intolerance NEUROLOGIC: Absent: headache, focal weakness or paresthesias PSYCHIATRIC: Absent: anxiety, depression PHYSICAL EXAMINATION Vital Signs - 24 hr 06/30/16 06/30/16 06/30/16 16:20 16:35 19:44 Temperature 98.8 F Pulse Rate 93 H Pulse Rate [ 94 H 102 H Left] Respiratory 19 17 20 Rate Blood Pressure 118/69 Blood Pressure 119/63 113/62 [Left Arm] O2 Sat by Pulse 100 100 95 Oximetry (%) 06/30/16 06/30/16 07/01/16 21:00 22:00 05:55 Temperature 98.6 F Pulse Rate 110 H Pulse Rate [ Left] Respiratory 20 20 Rate Blood Pressure 121/67 Blood Pressure [Left Arm] O2 Sat by Pulse 96 96 Oximetry (%) 07/01/16 07/01/16 09:00 14:32 Temperature 98.0 F 98.1 F Pulse Rate 93 H 96 H Pulse Rate [ Left] Respiratory 18 Rate Blood Pressure 127/68 100/57 Blood Pressure [Left Arm] O2 Sat by Pulse Oximetry (%) GENERAL: Awake, alert, and fully oriented, in no acute distress. HEAD: Normal with no signs of trauma. EYES: Pupils equal, round and reactive to light, extraocular movements intact, sclera anicteric, conjunctiva clear. EARS, NOSE, THROAT: Moist mucous membranes. NECK: supple without JVD LUNGS: diffuse wheezes HEART: Regular rate and rhythm, normal S1 and S2 ABDOMEN: Soft, nontender, not distended, normoactive bowel sounds, no masses. MUSCULOSKELETAL: No CVA tenderness. UPPER EXTREMITIES: 2+ pulses, No peripheral edema. LOWER EXTREMITIES: 2+ pulses, warm, well-perfused. 1+ peripheral edema. NEUROLOGICAL: Cranial nerves II-XII grossly intact. Normal speech. PSYCHIATRIC: Cooperative. Good eye contact. A SKIN: Warm, dry Laboratory Results - last 24 hr 06/30/16 07/01/16 07/01/16 22:00 06:50 06:50 WBC RBC Hgb Hct MCV MCHC RDW Plt Count MPV Neutrophils % Lymphocytes % Monocytes % Eosinophils % Basophils % Retic Count 3.10 H D Sodium 142 Potassium 3.5 Chloride 97 L Carbon Dioxide 37 H Anion Gap 8 BUN 19 H Creatinine 0.8 Random Glucose 99 Calcium 7.8 L Phosphorus 4.1 Magnesium 2.6 H D LD Total 193 Creatine Kinase 74 70 Troponin I < 0.02 < 0.02 Urine Color Urine Appearance Urine pH Ur Specific Guy Urine Protein Urine Glucose (UA) Urine Ketones Urine Blood Urine Nitrite Urine Bilirubin Urine Urobilinogen Ur Leukocyte Esterase Stool Occult Blood 07/01/16 07/01/16 07/01/16 06:50 07:30 10:20 WBC 8.5 RBC 3.74 Hgb 7.8 L D Hct 25.1 L D MCV 67.1 L MCHC 31.0 L RDW 29.8 H Plt Count 102 L MPV 8.5 Neutrophils % 79.8 Lymphocytes % 8.6 D Monocytes % 11.2 H Eosinophils % 0.0 D Basophils % 0.4 Retic Count Sodium Potassium Chloride Carbon Dioxide Anion Gap BUN Creatinine Random Glucose Calcium Phosphorus Magnesium LD Total Creatine Kinase Troponin I Urine Color Straw Urine Appearance Clear Urine pH 7.0 Ur Specific [place] 1.008 Urine Protein Negative Urine Glucose (UA) Negative Urine Ketones Negative Urine Blood Negative Urine Nitrite Negative Urine Bilirubin Negative Urine Urobilinogen Negative Ur Leukocyte Esterase Negative Stool Occult Blood Positive Active Medications Generic Name Dose Route Start Last Admin Trade Name Freq PRN Reason Stop Dose Admin Albuterol Sulfate 1 amp 06/30/16 16:35 07/01/16 12:24 Ventolin 0.5% - NEB 1 amp Q6H PRN Administration SHORT OF BREATH/WHEEZING Atorvastatin Calcium 10 mg 06/30/16 22:00 06/30/16 22:22 Lipitor - PO 10 mg HS JEANNA Administration Budesonide/Formoterol Fumarate 2 puff 06/30/16 22:00 07/01/16 10:37 Symbicort 80/4.5mcg - IH 2 inh BID JEANNA Administration Calcium Carbonate/Cholecalciferol 1 tab 07/01/16 10:00 07/01/16 10:37 Os-Misha 500+D - PO 1 tab DAILY JEANNA Administration Diltiazem HCl 180 mg 06/30/16 22:00 07/01/16 10:37 Cardizem Cd - PO 180 mg BID JEANNA Administration Ferrous Sulfate 325 mg 07/01/16 10:00 07/01/16 10:37 Feosol - PO 325 mg DAILY JEANNA Administration Furosemide 80 mg 06/30/16 18:15 07/01/16 14:03 Lasix Injection - IVPUSH 80 mg BID@0600,1400 JEANNA Administration Latanoprost 1 drop 06/30/16 22:00 06/30/16 22:23 Xalatan 0.005% Eye Drops - OU 1 drop HS JEANNA Administration Montelukast Sodium 10 mg 06/30/16 22:00 06/30/16 22:22 Singulair - PO 10 mg HS JEANNA Administration Multivitamins/Minerals/Vitamin C 1 tab 07/01/16 10:00 07/01/16 10:36 Tab-A-Vit - PO 1 tab DAILY JEANNA Administration Pantoprazole Sodium 40 mg 07/01/16 10:00 07/01/16 10:37 Protonix - PO 40 mg DAILY JEANNA Administration Potassium Chloride 20 meq 07/01/16 10:00 07/01/16 10:37 K-Dur - PO 20 meq DAILY JEANNA Administration Sodium Chloride 2 spray 06/30/16 22:00 07/01/16 14:04 [place] Nasal [place] - NS 2 spray TID JEANNA Administration Tiotropium [place] 1 puff 07/02/16 10:00 Spiriva - IH DAILY JEANNA ASSESSMENT/PLAN: Acute on chronic hypoxic respiratory failure -likely due to exacerbated severe anemia -symptmatically improved, ambulating to bathroom, below baseline -supplemental O2, now on 2L sat 96% at rest -symbicort, singulair, albuterol, spiriva COPD -O2 dependant -mild pulmonary HTN -CXR no acute provess Severe symptomatic anemia -acute on chronic -Hx upper GIB (bleeding ulcer 1999) -recommend GI consult for EGD, colonoscopy -hemo consult appreciated: f/u anemia workup -s/p 2 U pRBC -monitor h/h CHF -cardiology on case -possible exacerbation HTN -lasix Dispo: We will continue to follow the patient. Thank you for this consultative opportunity. Problem List - Problems (1) Acute on chronic respiratory failure with hypoxemia Code(s): J96.21 - ACUTE AND CHRONIC RESPIRATORY FAILURE WITH HYPOXIA (2) Anemia Code(s): D64.9 - ANEMIA, UNSPECIFIED (3) COPD (chronic obstructive pulmonary disease) Code(s): J44.9 - CHRONIC OBSTRUCTIVE PULMONARY DISEASE, UNSPECIFIED (4) COPD exacerbation Code(s): J44.1 - CHRONIC OBSTRUCTIVE PULMONARY DISEASE W (ACUTE) EXACERBATION (5) SOB (shortness of breath) Code(s): R06.02 - SHORTNESS OF BREATH (6) CHF (congestive heart failure) Code(s): I50.9 - HEART FAILURE, UNSPECIFIED (7) Hypertension Code(s): I10 - ESSENTIAL (PRIMARY) HYPERTENSION (8) GIB (gastrointestinal bleeding) Code(s): K92.2 - GASTROINTESTINAL HEMORRHAGE, UNSPECIFIED Visit type - Emergency Visit Emergency Visit: Yes ED Registration Date: 06/30/16 Care time: The patient presented to the Emergency Department on the above date and was hospitalized for further evaluation of their emergent condition. - New Patient This patient is new to me today: Yes Date on this admission: 07/01/16 - Critical Care Critical Care patient: No
--- NOTE | 2016-07-01 19:46 | PN ---
Progress Note (short form) - Note Progress Note: Called to see patient. I had performed a colonoscopy 10/12 that revealed diverticulosis. She then followed up with Dr. Vargas as an outpatient. he performed EGD 01/12. She said that she could not follow back up with him due to insurance purposes but would not mind seeing him again now that her insurance has changed to [facility]. I let Dr. Zuniga know who will change the consult to Dr. Vargas.
[2016-07-01] MEDS: MONTELUKAST NA 10 MG TABLET PO SCH (22:01)
[2016-07-01] MEDS: ATORVASTATIN CA 10 MG TABLET (FP) PO SCH (22:01)
[2016-07-01] MEDS: LATANOPROST 0.005% OPHTH SOLN 2.5ML BOTTLE OU SCH (22:01)
[2016-07-02 06:06] LABS: SERUM IRON 14 ug/dL (27-139); TOTAL IRON BINDING CAPACITY 428 ug/dL (250-450); UIBC 414 ug/dL (118-369)
[2016-07-02] MEDS: FUROSEMIDE 40 MG/4 ML INJECTABLE VIAL IVPUSH SCH ×2 (06:35→14:11)
[2016-07-02] MEDS: SODIUM CHLORIDE NASAL SPRAY 44 ML BOTTLE NS SCH ×3 (06:36→22:43)
[2016-07-02 07:56] LABS: BASOPHIL 1.1 % (0-2.0); MCH 21.5 pg (25.7-33.7); MCHC 30.6 g/dl (32.0-36.0); MEAN CELL VOLUME 70.3 fl (80-96); MEAN PLT VOLUME 9.3 fl (7.5-11.1); NEUTROPHILS 71.5 % (42.8-82.8); PLATELET COUNT 128 K/MM3 (134-434); RDW 28.7 % (11.6-15.6); WHITE BLOOD COUNT 11.5 K/mm3 (4.0-10.0)
[2016-07-02 08:07] LABS: HAPTOGLOBIN 173 mg/dL (34-200)
[2016-07-02 08:38] LABS: CALCIUM 7.7 mg/dL (8.5-10.1); CREATININE 0.7 mg/dL (0.55-1.02); MAGNESIUM 2.5 mg/dL (1.8-2.4); PHOSPHOROUS 2.7 mg/dL (2.5-4.9)
[2016-07-02] MEDS ORDERED: PT OWN MED DRAWER 7, Y5N ONE ×3 (09:22→22:00)
[2016-07-02] MEDS: FERROUS SO4 325 MG TABLET (FP) PO SCH (09:28)
[2016-07-02] MEDS: POTASSIUM CHLORIDE TABS 20 MEQ TABLET.ER (FP) PO SCH (09:28)
[2016-07-02] MEDS: MULTIVITAMINS (DAILY MVI) TABLET (FP) PO SCH (09:29)
[2016-07-02] MEDS: PANTOPRAZOLE 40 MG TABLET (FP) PO SCH ×2 (09:29→22:42)
[2016-07-02] MEDS: CALCIUM 500MG/VIT-D 200 UNITS COMBO TABLET (FP) PO SCH (09:29)
[2016-07-02] MEDS ORDERED: TIOTROPIUM BROMIDE 18 MCG/INH (DEVICE W/ 30 CAPSULES) IH SCH (10:00)
--- NOTE | 2016-07-02 10:50 | PN ---
Physical Exam: SUBJECTIVE: Patient seen and examined patient resting in bed comfortably NAD. No acute events overnight. Afebrile and hemodynamically stable. s/p 1/2 unit (IV infiltrated) yesterday in addition to previous 2. States she feels less SOB and has reduced LE edema. ambulated wiuth walker to bathroom with some exertional SOB, still below baseline. Denies f/c, chest pain, dizziness, cough, abd pain, diarrhea, dysuria. OBJECTIVE: Vital Signs Period Temp Pulse Resp BP Sys/Ellis Pulse Ox Last 24 Hr 97.9 F-98.3 F 83-96 19-20 100-112/57-65 99 GENERAL: Awake, alert, and fully oriented, in no acute distress. HEAD: Normal with no signs of trauma. EYES: Pupils equal, round and reactive to light, extraocular movements intact, sclera anicteric, conjunctiva clear. EARS, NOSE, THROAT: Moist mucous membranes. NECK: supple without JVD LUNGS: reduced wheezes, better air movement HEART: Regular rate and rhythm, normal S1 and S2 ABDOMEN: Soft, nontender, not distended, normoactive bowel sounds, no masses. MUSCULOSKELETAL: No CVA tenderness. UPPER EXTREMITIES: 2+ pulses, No peripheral edema. LOWER EXTREMITIES: 2+ pulses, warm, well-perfused. 1+ peripheral edema. NEUROLOGICAL: Cranial nerves II-XII grossly intact. Normal speech. PSYCHIATRIC: Cooperative. Good eye contact. A SKIN: Warm, dry Laboratory Results - last 24 hr 06/30/16 06/30/16 07/01/16 18:50 18:55 06:50 WBC RBC Hgb Hct MCV MCHC RDW Plt Count MPV Neutrophils % Lymphocytes % Monocytes % Eosinophils % Basophils % Haptoglobin 173 Sodium Potassium Chloride Carbon Dioxide Anion Gap BUN Creatinine Random Glucose Calcium Phosphorus Magnesium Iron 14 L TIBC 428 Iron Saturation 3 L Transferrin 376 H Stool Occult Blood 07/01/16 07/02/16 07/02/16 10:20 06:30 06:30 WBC 11.5 H D RBC 4.51 D Hgb 9.7 L D Hct 31.7 L D MCV 70.3 L MCHC 30.6 L RDW 28.7 H Plt Count 128 L D MPV 9.3 Neutrophils % 71.5 Lymphocytes % 16.3 D Monocytes % 10.1 Eosinophils % 1.0 D Basophils % 1.1 Haptoglobin Sodium 141 Potassium 3.7 Chloride 97 L Carbon Dioxide 38 H Anion Gap 6 L BUN 15 D Creatinine 0.7 Random Glucose 78 D Calcium 7.7 L Phosphorus 2.7 D Magnesium 2.5 H Iron TIBC Iron Saturation Transferrin Stool Occult Blood Positive Active Medications Generic Name Dose Route Start Last Admin Trade Name Freq PRN Reason Stop Dose Admin Albuterol Sulfate 1 amp 06/30/16 16:35 07/01/16 18:10 Ventolin 0.5% - NEB 1 amp Q6H PRN Administration SHORT OF BREATH/WHEEZING Atorvastatin Calcium 10 mg 06/30/16 22:00 07/01/16 22:01 Lipitor - PO 10 mg HS JAENNA Administration Budesonide/Formoterol Fumarate 2 puff 06/30/16 22:00 07/01/16 22:02 Symbicort 80/4.5mcg - IH 2 inh BID JEANNA Administration Calcium Carbonate/Cholecalciferol 1 tab 07/01/16 10:00 07/02/16 09:29 Os-Misha 500+D - PO 1 tab DAILY JEANNA Administration Diltiazem HCl 180 mg 06/30/16 22:00 07/02/16 09:28 Cardizem Cd - PO 180 mg BID JEANNA Administration Ferrous Sulfate 325 mg 07/01/16 10:00 07/02/16 09:28 Feosol - PO 325 mg DAILY JEANNA Administration Furosemide 80 mg 06/30/16 18:15 07/02/16 06:35 Lasix Injection - IVPUSH 80 mg BID@0600,1400 JEANNA Administration Latanoprost 1 drop 06/30/16 22:00 07/01/16 22:01 Xalatan 0.005% Eye Drops - OU 1 drop HS JEANNA Administration Montelukast Sodium 10 mg 06/30/16 22:00 07/01/16 22:01 Singulair - PO 10 mg HS JEANNA Administration Multivitamins/Minerals/Vitamin C 1 tab 07/01/16 10:00 07/02/16 09:29 Tab-A-Vit - PO 1 tab DAILY JEANNA Administration Pantoprazole Sodium 40 mg 07/02/16 10:00 07/02/16 09:29 Protonix - PO 40 mg BID JEANNA Administration Potassium Chloride 20 meq 07/01/16 10:00 07/02/16 09:28 K-Dur - PO 20 meq DAILY JEANNA Administration Sodium Chloride 2 spray 06/30/16 22:00 07/02/16 06:36 [place] Nasal [place] - NS 2 spray TID JEANNA Administration Tiotropium [place] 1 puff 07/02/16 10:00 Spiriva - IH DAILY JEANNA ASSESSMENT/PLAN: Acute on chronic hypoxic respiratory failure -likely due to exacerbated severe anemia -symptmatically improved, ambulating to bathroom, below baseline -supplemental O2, now on 2L sat 99% at rest -symbicort, singulair, albuterol, spiriva -PT COPD -O2 dependant -mild pulmonary HTN -CXR no acute process Severe symptomatic anemia -acute on chronic -Hx upper GIB (bleeding ulcer 1999) -GI consult for EGD, colonoscopy to follow -hemo consult appreciated: f/u anemia workup -s/p 2.2 U pRBC -monitor h/h (hgb 11.5 today) CHF -cardiology on case -possible exacerbation HTN -lasix Dispo: We will continue to follow the patient. Thank you for this consultative opportunity. Problem List - Problems (1) Acute on chronic respiratory failure with hypoxemia Code(s): J96.21 - ACUTE AND CHRONIC RESPIRATORY FAILURE WITH HYPOXIA (2) Anemia Code(s): D64.9 - ANEMIA, UNSPECIFIED (3) COPD (chronic obstructive pulmonary disease) Code(s): J44.9 - CHRONIC OBSTRUCTIVE PULMONARY DISEASE, UNSPECIFIED (4) COPD exacerbation Code(s): J44.1 - CHRONIC OBSTRUCTIVE PULMONARY DISEASE W (ACUTE) EXACERBATION (5) SOB (shortness of breath) Code(s): R06.02 - SHORTNESS OF BREATH (6) CHF (congestive heart failure) Code(s): I50.9 - HEART FAILURE, UNSPECIFIED (7) Hypertension Code(s): I10 - ESSENTIAL (PRIMARY) HYPERTENSION (8) GIB (gastrointestinal bleeding) Code(s): K92.2 - GASTROINTESTINAL HEMORRHAGE, UNSPECIFIED Visit type - Emergency Visit Emergency Visit: Yes ED Registration Date: 06/30/16 Care time: The patient presented to the Emergency Department on the above date and was hospitalized for further evaluation of their emergent condition. - New Patient This patient is new to me today: No - Critical Care Critical Care patient: No - Discharge Referral Referred to [facility] No
[2016-07-02] MEDS: BUDESONIDE/FORMETEROL FUMARATE 80/4.5 mcg INHALER IH SCH ×2 (11:24→22:41)
--- NOTE | 2016-07-02 11:28 | PN ---
Progress Note (short form) - Note Progress Note: s: no cp palps dizzy; sob with mild exertion to bathroom o: Vital Signs Period Temp Pulse Resp BP Sys/Ellis Pulse Ox Last 24 Hr 97.3 F-98.3 F 83-96 19-20 100-116/57-66 99 Constitutional: Yes: Well Nourished, No Distress Eyes: No: Sclera Icterus Respiratory: Yes: mild bl wheeze Gastrointestinal: Yes: Normal Bowel Sounds. No: Distention, Hepatomegaly, Palpable Mass, Tenderness Cardiovascular: Yes: Regular Rate and Rhythm JVD: No Heart Sounds: Yes: S1, S2. No: Gallop Murmur: No: Systolic Murmur, Diastolic Murmur Extremities: No: Cold, Cyanosis Edema: Yes (1+ pretibs bilat) Integumentary: No: Jaundice Neurological: Yes: Alert, Oriented (x3) Psychiatric: No: Agitated Current Medications Generic Name Dose Route Start Last Admin Trade Name Freq PRN Reason Stop Dose Admin Acetaminophen 650 mg 07/02/16 11:24 Tylenol - PO Q6H PRN FEVER OR PAIN Albuterol Sulfate 1 amp 06/30/16 16:35 07/01/16 18:10 Ventolin 0.5% - NEB 1 amp Q6H PRN Administration SHORT OF BREATH/WHEEZING Atorvastatin Calcium 10 mg 06/30/16 22:00 07/01/16 22:01 Lipitor - PO 10 mg HS JEANNA Administration Budesonide/Formoterol Fumarate 2 puff 06/30/16 22:00 07/01/16 22:02 Symbicort 80/4.5mcg - IH 2 inh BID JEANNA Administration Calcium Carbonate/Cholecalciferol 1 tab 07/01/16 10:00 07/02/16 09:29 Os-Misha 500+D - PO 1 tab DAILY JEANNA Administration Diltiazem HCl 180 mg 06/30/16 22:00 07/02/16 09:28 Cardizem Cd - PO 180 mg BID JEANNA Administration Ferrous Sulfate 325 mg 07/01/16 10:00 07/02/16 09:28 Feosol - PO 325 mg DAILY JEANNA Administration Furosemide 80 mg 06/30/16 18:15 07/02/16 06:35 Lasix Injection - IVPUSH 80 mg BID@0600,1400 JEANNA Administration Latanoprost 1 drop 06/30/16 22:00 07/01/16 22:01 Xalatan 0.005% Eye Drops - OU 1 drop HS JEANNA Administration Montelukast Sodium 10 mg 06/30/16 22:00 07/01/16 22:01 Singulair - PO 10 mg HS JEANNA Administration Multivitamins/Minerals/Vitamin C 1 tab 07/01/16 10:00 07/02/16 09:29 Tab-A-Vit - PO 1 tab DAILY JEANNA Administration Pantoprazole Sodium 40 mg 07/02/16 10:00 07/02/16 09:29 Protonix - PO 40 mg BID JEANNA Administration Potassium Chloride 20 meq 07/01/16 10:00 07/02/16 09:28 K-Dur - PO 20 meq DAILY JEANNA Administration Sodium Chloride 2 spray 06/30/16 22:00 07/02/16 06:36 [place] Nasal [place] - NS 2 spray TID JEANNA Administration Tiotropium [place] 1 puff 07/02/16 10:00 Spiriva - IH DAILY JEANNA CBC, BMP 07/02/16 06:30 07/02/16 06:30 ekg 06/30 (ER): NSR, normal asix/interv; WNL Echo 08/16: nl LV/EF; RV tds; nl LA; valves WNL; RVSP 40-50 Assessment/Plan acute SOB, acute diast chf: -BNP 600s, similar to when was here with probable chf 08/16 -? sx's due to worsening anemia with hgb 6 -CXR with no sig chf -leg swelling is signif incr'd lately (? abdomen as well per pt), raising suspicion for chf though cannot appreciate JVD on exam -has been complying with torsemide 40 bid at home she says -will cont lasix 80 iv bid (diuresed well with this last time here), cr stable thus far -f/u of daily wts and BMP--low threshold to hold diuretics if bun/creat bumps -no suspicion of ACS, enzymes neg x3 and ecg unremarkable mild pulm HTN: -estimated RVSP 40-50 on recent echo, RV not well seen on that report -? sec to LV diast chf vs ? hypoxic chronic lung dz (on home O2 for copd)-- these 2 dx's are extremely likely to represent the etiology of her pulm htn and tx directed at both (i.e. diuretics and supplemental O2/airways tx) is all that is indicated here COPD, ? with a.e.: -+ wheezing and mild URI sx's -defer to dr taylor pulsurendra as indicated, regarding airways-specific tx's HTN: -controlled -cont home meds anemia, chronic: -baseline hgb runs 8s-9s -currently 6's on admit, likely symptomatic (sob) -today hgb in 9s after prbcs -PRBCs +/- further w/u of etiology per dr taylor, GI -Pt has no cardiac contraindications (intermediate risk) to EGD/FOC if needed for anemia workup
[2016-07-02] MEDS: ACETAMINOPHEN 325 MG TABLET (FP) PO PRN (11:34)
[2016-07-02 11:55] LABS: ANISOCYTOSIS 2+; HYPOCHROMIA 2+; MICROCYTOSIS 1+; TARGET CELLS FEW
[2016-07-02] MEDS ORDERED: ALBUTEROL SO4 0.083% IH SOL 2.5 MG/3 ML VIAL.NEB. NEB ONE ×2 (12:38→19:27)
[2016-07-02] MEDS: ALBUTEROL SO4 0.5 % INH SOLN 2.5 MG/0.5 ML VIAL.NEB. NEB PRN ×2 (12:45→19:29)
[2016-07-02] MEDS: TIOTROPIUM BROMIDE 18 MCG/INH (DEVICE W/ 30 CAPSULES) IH SCH (13:15)
--- NOTE | 2016-07-02 13:51 | PN ---
Progress Note, Physician Chief Complaint: Ms Hadley says she is feeling better, continues to have dyspnea on exertion. Says having some abdominal discomfort that started this morning. No cp or n/v. RN states she just developed LUE discomfort. - Current Medication List Current Medications: Active Medications Acetaminophen (Tylenol -) 650 mg PO Q6H PRN PRN Reason: FEVER OR PAIN Last Admin: 07/02/16 11:34 Dose: 650 mg Albuterol Sulfate (Ventolin 0.5% -) 1 amp NEB Q6H PRN PRN Reason: SHORT OF BREATH/WHEEZING Last Admin: 07/01/16 18:10 Dose: 1 amp Atorvastatin Calcium (Lipitor -) 10 mg PO [facility] Last Admin: 07/01/16 22:01 Dose: 10 mg Budesonide/Formoterol Fumarate (Symbicort 80/4.5mcg -) 2 puff IH BID [facility] Last Admin: 07/02/16 11:24 Dose: 2 inh Calcium Carbonate/Cholecalciferol (Os-Misha 500+D -) 1 tab PO DAILY [facility] Last Admin: 07/02/16 09:29 Dose: 1 tab Diltiazem HCl (Cardizem Cd -) 180 mg PO BID [facility] Last Admin: 07/02/16 09:28 Dose: 180 mg Ferrous Sulfate (Feosol -) 325 mg PO DAILY [facility] Last Admin: 07/02/16 09:28 Dose: 325 mg Furosemide (Lasix Injection -) 80 mg IVPUSH BID@0600,1400 [facility] Last Admin: 07/02/16 06:35 Dose: 80 mg Latanoprost (Xalatan 0.005% Eye Drops -) 1 drop OU [facility] Last Admin: 07/01/16 22:01 Dose: 1 drop Montelukast Sodium (Singulair -) 10 mg PO HS [facility] Last Admin: 07/01/16 22:01 Dose: 10 mg Multivitamins/Minerals/Vitamin C (Tab-A-Vit -) 1 tab PO DAILY [facility] Last Admin: 07/02/16 09:29 Dose: 1 tab Pantoprazole Sodium (Protonix -) 40 mg PO BID [facility] Last Admin: 07/02/16 09:29 Dose: 40 mg Potassium Chloride (K-Dur -) 20 meq PO DAILY [facility] Last Admin: 07/02/16 09:28 Dose: 20 meq Sodium Chloride ([place] Nasal [place] -) 2 spray NS TID [facility] Last Admin: 07/02/16 06:36 Dose: 2 spray Tiotropium [place] (Spiriva -) 1 puff IH DAILY [facility] Last Admin: 07/02/16 13:15 Dose: 1 puff - Objective Vital Signs: Vital Signs Temperature 97.8 F 07/02/16 13:48 Pulse Rate 95 H 07/02/16 13:48 Respiratory Rate 20 07/02/16 10:00 Blood Pressure 100/60 07/02/16 13:48 O2 Sat by Pulse Oximetry (%) 99 07/02/16 09:05 Constitutional: Yes: Well Nourished, No Distress, Calm Cardiovascular: Yes: Regular Rate and Rhythm. No: Gallop, Murmur, Rub Respiratory: Yes: Regular, CTA Bilaterally, On Nasal O2. No: Rales, Rhonchi, Wheezes Gastrointestinal: Yes: Normal Bowel Sounds, Soft. No: Distention, Tenderness Extremities: Yes: WNL Edema: No Labs: CBC, BMP 07/02/16 06:30 07/02/16 06:30 INR, PTT INR 0.96 (0.82-1.09) 06/30/16 15:00 Problem List - Problems (1) Anemia Code(s): D64.9 - ANEMIA, UNSPECIFIED (2) SOB (shortness of breath) Code(s): R06.02 - SHORTNESS OF BREATH (3) CHF (congestive heart failure) Code(s): I50.9 - HEART FAILURE, UNSPECIFIED (4) Hypertension Code(s): I10 - ESSENTIAL (PRIMARY) HYPERTENSION (5) COPD (chronic obstructive pulmonary disease) Code(s): J44.9 - CHRONIC OBSTRUCTIVE PULMONARY DISEASE, UNSPECIFIED Assessment/Plan (1) Anemia Assessment/Plan: -s/p 3 units with good response -GI consulted, hemoccult positive -increase protonix to bid -await recommendations from GI Code(s): D64.9 - ANEMIA, UNSPECIFIED (2) SOB (shortness of breath) Assessment/Plan: -improved but still present -transfuse as above -ACS ruled out Code(s): R06.02 - SHORTNESS OF BREATH (3) CHF (congestive heart failure) Assessment/Plan: -cardiology consult and note reviewed -on IV lasix 80mg bid Code(s): I50.9 - HEART FAILURE, UNSPECIFIED (4) Hypertension Assessment/Plan: -continue diltiazem and lasix -monitor Code(s): I10 - ESSENTIAL (PRIMARY) HYPERTENSION (5) COPD (chronic obstructive pulmonary disease) Assessment/Plan: -pulmonary consulted Code(s): J44.9 - CHRONIC OBSTRUCTIVE PULMONARY DISEASE, UNSPECIFIED (6) Pain -low suspicion for ACS -EKG normal -cardiac enzyme negative -case d/w cardiology, no further work up needed
--- NOTE | 2016-07-02 14:14 | EKG ---
Test Reason : Blood Pressure : / mmHG Vent. Rate : 086 BPM Atrial Rate : 086 BPM P-R Int : 118 ms QRS Dur : 074 ms QT Int : 350 ms P-R-T Axes : 057 002 -07 degrees QTc Int : 418 ms NORMAL SINUS RHYTHM NORMAL ECG WHEN COMPARED WITH ECG OF 30-JUN-2016 13:21, NO SIGNIFICANT CHANGE WAS FOUND Confirmed by JAH APPIAH MD ([id number]) on 07/02/2016 2:14:01 PM Referred By: TUNG HILTON Confirmed By:JAH APPIAH MD
[2016-07-02 15:24] LABS: TROPONIN I < 0.02 ng/ml (0.00-0.05)
--- NOTE | 2016-07-02 16:05 | PN ---
Teaching Attending Note Name of Resident: Mary Barber ATTENDING PHYSICIAN STATEMENT I saw and evaluated the patient. I reviewed the resident's note and discussed the case with the resident. I agree with the resident's findings and plan as documented. SUBJECTIVE:SOB ON EXERTION OBJECTIVE:DISTANT BREATH SOUNDS ANEMIA/COPD/HTN CONTINUE CURRENT TREATMENT O2/BRONCHODILATORS/SINGULAIR/DIURETICS/KEEP HGB 8 GMS OR ABOVE Kathy WASHINGTON MD
--- NOTE | 2016-07-02 18:56 | CON.GI ---
Consult Consult Specialty:: anemia - History of Present Illness History of Present Illness: 75 y/o female with PMH of COPD, CHF was asked to be seen because of severe anemia. She developed progressive SOB , easy fatigability and severe bilateral leg swelling. On admission the Hgb was 6. Today Hgb is 9 but still is SOB. The bilateral leg swelling has improved. In 10/2011, Dr Arias did a colonoscopy which revealed severe diverticulosis. 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 She was lost in follow-up - Past Medical History Cardio/Vascular: Yes: HTN Pulmonary: Yes: COPD, Other (oxygen at home) Gastrointestinal: Yes: Other (History of ulcer disease diagnosed 3 years ago when patient presented with anemia) ...: No Musculoskeletal: Yes: Osteoarthritis - Past Surgical History Past Surgical History: Yes: None - Alcohol/Substance Use Hx Alcohol Use: No History of Substance Use: reports: None - Smoking History Smoking history: Former smoker Have you smoked in the past 12 months: No Aproximately how many cigarettes per day: 0 If you are a former smoker, when did you quit?: Over 15 years ago - Social History ADL: Independent 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, , 2 children History of Recent Travel: No Home Medications - Allergies Allergies/Adverse Reactions: Allergies Allergy/AdvReac Type Severity Reaction Status Date / Time No Known Allergies Allergy Verified 06/30/16 13:14 - Home Medications Home Medications: Ambulatory Orders Albuterol Sulfate [Proair Hfa -] 1 - 2 inh PO PRN PRN 10/15/11 Fluticasone/Salmeterol [Advair 250-50 Diskus] 1 each IH BID 10/15/11 Tiotropium [place] [Spiriva] 18 mcg IH DAILY 10/15/11 Montelukast Na [Singulair -] 10 mg PO HS #0 tablet 10/20/11 Multivitamins [Multivit ([facility] Formulary)] 1 udtab PO DAILY #0 tab 10/20/11 Sodium Chloride Nasal [place] [[place] Nasal [place] -] 2 spray NS TID #0 spraybtl 10/20/11 Ferrous Sulfate [Feosol] 325 mg PO DAILY 01/18/12 Calcium Carbonate/Vitamin D3 [Calcium 600-Vit D3 200 Tablet] 1 each PO DAILY 10/13 Docosahexanoic Acid/Epa [Fish Oil Softgel] 1 each PO DAILY 11/05/12 Potassium Chloride [K-Dur] 20 meq PO DAILY #0 tab.er.prt 11/05/12 Alendronate Sodium [Fosamax] 35 mg PO [place] 09/01/15 Atorvastatin Ca [Lipitor] 10 mg PO HS 09/01/15 Latanoprost 0.005% Eye Drops [Xalatan 0.005% Eye Drops -] 1 drop OU HS 09/01/15 Torsemide 40 mg PO BID #120 tablet 09/02/15 Diltiazem Cd [Cardizem Cd -] 180 mg PO BID 06/30/16 Diphenhydramine HCl [Benadryl -] 25 mg PO Q6H PRN 06/30/16 Pantoprazole Sodium 40 mg PO DAILY 06/30/16 Family Disease History - Family Disease History Family Disease History: Heart Disease: Father, Other: Mother (Alzheimers Dementia) Other Family History: No family history of ca Review of Systems - Review of Systems Constitutional: denies: Fever Eyes: denies: Blind Spots HENT: denies: Difficult Swallowing Neck: denies: Decreased ROM Cardiovascular: denies: Chest Pain Respiratory: denies: Cough Gastrointestinal: denies: Abdominal Pain, Constipation, Melena, Rectal Bleeding , Vomiting, Vomiting Blood Physical Exam-GI Vital Signs: Vital Signs Temperature 98.2 F 07/02/16 17:00 Pulse Rate 87 07/02/16 17:00 Respiratory Rate 18 07/02/16 17:00 Blood Pressure 109/62 07/02/16 17:00 O2 Sat by Pulse Oximetry (%) 99 07/02/16 09:05 Constitutional: Yes: No Distress Eyes: Yes: Conjunctiva Clear HENT: Yes: Atraumatic Neck: Yes: Supple Respiratory: Yes: Poor Air Entry, Wheezes (--mild) Edema: LLE: Trace, RLE: Trace Labs: CBC, BMP 07/02/16 06:30 07/02/16 06:30 INR, PTT INR 0.96 (0.82-1.09) 06/30/16 15:00 Hepatic Panel Total Bilirubin 0.3 mg/dL (0.2-1.0) D 06/30/16 13:45 AST 25 U/L (15-37) 06/30/16 13:45 ALT 27 U/L (12-78) 06/30/16 13:45 Alkaline Phosphatase 89 U/L (45-117) 06/30/16 13:45 Albumin 3.7 g/dl (3.4-5.0) 06/30/16 13:45 Problem List - Problems (1) GIB (gastrointestinal bleeding) Assessment/Plan: --occlult gi bleeding possibly secondary to AVMS R> patient still has respiratory insufficiency and is poor candidate for any GI procedures, patient was made aware to follow-up and schedule gi w/u as an outpatient once medically improved, will need pulmonary clearance Code(s): K92.2 - GASTROINTESTINAL HEMORRHAGE, UNSPECIFIED
--- NOTE | 2016-07-02 19:54 | PN ---
Progress Note (short form) - Note Progress Note: Paient seen and examined feels ok Last Vital Signs Temp Pulse Resp BP Pulse Ox 98.2 F 87 18 109/62 99 07/02/16 17:00 07/02/16 17:00 07/02/16 17:00 07/02/16 17:00 07/02/16 09:05 HEENT: [place], EOM Intact Oropharynx: No thrush, Cor: RSR, No murmurs, No gallops Lungs:decreased at bases Abd: Soft, Normal bowel sounds, No organomegaly Ext:No significant edema Abnormal Lab Results 06/30/16 06/30/16 07/02/16 18:50 18:55 06:30 WBC 11.5 H D Hgb 9.7 L D Hct 31.7 L D MCV 70.3 L MCHC 30.6 L RDW 28.7 H Plt Count 128 L D Chloride Carbon Dioxide Anion Gap Calcium Magnesium Iron 14 L Iron Saturation 3 L Transferrin 376 H 07/02/16 06:30 WBC Hgb Hct MCV MCHC RDW Plt Count Chloride 97 L Carbon Dioxide 38 H Anion Gap 6 L Calcium 7.7 L Magnesium 2.5 H Iron Iron Saturation Transferrin Current Medications Acetaminophen (Tylenol -) 650 mg PO Q6H PRN PRN Reason: FEVER OR PAIN Last Admin: 07/02/16 11:34 Dose: 650 mg Albuterol Sulfate (Ventolin 0.5% -) 1 amp NEB Q6H PRN PRN Reason: SHORT OF BREATH/WHEEZING Last Admin: 07/02/16 19:29 Dose: 1 amp Atorvastatin Calcium (Lipitor -) 10 mg PO HS [facility] Last Admin: 07/01/16 22:01 Dose: 10 mg Budesonide/Formoterol Fumarate (Symbicort 80/4.5mcg -) 2 puff IH BID [facility] Last Admin: 07/02/16 11:24 Dose: 2 inh Calcium Carbonate/Cholecalciferol (Os-Misha 500+D -) 1 tab PO DAILY [facility] Last Admin: 07/02/16 09:29 Dose: 1 tab Diltiazem HCl (Cardizem Cd -) 180 mg PO BID [facility] Last Admin: 07/02/16 09:28 Dose: 180 mg Ferrous Sulfate (Feosol -) 325 mg PO DAILY [facility] Last Admin: 07/02/16 09:28 Dose: 325 mg Furosemide (Lasix Injection -) 80 mg IVPUSH BID@0600,1400 [facility] Last Admin: 07/02/16 14:11 Dose: 80 mg Latanoprost (Xalatan 0.005% Eye Drops -) 1 drop OU HS [facility] Last Admin: 07/01/16 22:01 Dose: 1 drop Montelukast Sodium (Singulair -) 10 mg PO HS [facility] Last Admin: 07/01/16 22:01 Dose: 10 mg Multivitamins/Minerals/Vitamin C (Tab-A-Vit -) 1 tab PO DAILY [facility] Last Admin: 07/02/16 09:29 Dose: 1 tab Pantoprazole Sodium (Protonix -) 40 mg PO BID [facility] Last Admin: 07/02/16 09:29 Dose: 40 mg Potassium Chloride (K-Dur -) 20 meq PO DAILY [facility] Last Admin: 07/02/16 09:28 Dose: 20 meq Sodium Chloride ([place] Nasal [place] -) 2 spray NS TID [facility] Last Admin: 07/02/16 14:11 Dose: 2 spray Tiotropium [place] (Spiriva -) 1 puff IH DAILY [facility] Last Admin: 07/02/16 13:15 Dose: 1 puff A/P 75 y/o patient with History of ulcer disease diagnosed 3 years ago when patient underwent last EGD and colonoscopy. Treated medically with PPI's. Presents now with hypochromic, microcytic anemia. Fe++ studies s/o iron deficiency gi teams inputnoted On FeSO4 325 mg daily---change to niferex 150mg daily continue vit. c add protonix
[2016-07-02] MEDS: LATANOPROST 0.005% OPHTH SOLN 2.5ML BOTTLE OU SCH (22:42)
[2016-07-02] MEDS: ATORVASTATIN CA 10 MG TABLET (FP) PO SCH (22:42)
[2016-07-02] MEDS: MONTELUKAST NA 10 MG TABLET PO SCH (22:42)
[2016-07-03] MEDS ORDERED: PT OWN MED DRAWER 7, Y5N ONE ×4 (06:06→14:40)
[2016-07-03] MEDS: FUROSEMIDE 40 MG/4 ML INJECTABLE VIAL IVPUSH SCH ×2 (06:13→15:00)
[2016-07-03] MEDS: SODIUM CHLORIDE NASAL SPRAY 44 ML BOTTLE NS SCH ×3 (06:16→21:41)
[2016-07-03 07:31] LABS: BASOPHIL 0.7 % (0-2.0); EOSINOPHIL 1.8 % (0-4.5); MCH 21.7 pg (25.7-33.7); MCHC 30.8 g/dl (32.0-36.0); MEAN CELL VOLUME 70.5 fl (80-96); MEAN PLT VOLUME 8.5 fl (7.5-11.1); PLATELET COUNT 119 K/MM3 (134-434); RDW 29.8 % (11.6-15.6); WHITE BLOOD COUNT 11.1 K/mm3 (4.0-10.0)
[2016-07-03 07:49] LABS: CALCIUM 7.9 mg/dL (8.5-10.1); CREATININE 0.7 mg/dL (0.55-1.02); MAGNESIUM 2.5 mg/dL (1.8-2.4); PHOSPHOROUS 2.9 mg/dL (2.5-4.9)
[2016-07-03] MEDS: IRON POLYSACCHARIDES 150 MG CAPSULE PO SCH (09:57)
[2016-07-03] MEDS: POTASSIUM CHLORIDE TABS 20 MEQ TABLET.ER (FP) PO SCH (09:57)
[2016-07-03] MEDS: CALCIUM 500MG/VIT-D 200 UNITS COMBO TABLET (FP) PO SCH (09:57)
[2016-07-03] MEDS: MULTIVITAMINS (DAILY MVI) TABLET (FP) PO SCH (09:57)
[2016-07-03] MEDS: PANTOPRAZOLE 40 MG TABLET (FP) PO SCH ×2 (09:57→21:40)
[2016-07-03] MEDS: BUDESONIDE/FORMETEROL FUMARATE 80/4.5 mcg INHALER IH SCH ×2 (09:57→21:41)
--- NOTE | 2016-07-03 11:32 | PN ---
Progress Note (short form) - Note Progress Note: s: no cp palps dizzy; silva improving o: Vital Signs Period Temp Pulse Resp BP Sys/Ellis Pulse Ox Last 24 Hr 97.7 F-98.5 F 87-95 18-20 100-115/52-62 99 Constitutional: Yes: Well Nourished, No Distress Eyes: No: Sclera Icterus Respiratory: Yes: mild bl wheeze Gastrointestinal: Yes: Normal Bowel Sounds. No: Distention, Hepatomegaly, Palpable Mass, Tenderness Cardiovascular: Yes: Regular Rate and Rhythm JVD: No Heart Sounds: Yes: S1, S2. No: Gallop Murmur: No: Systolic Murmur, Diastolic Murmur Extremities: No: Cold, Cyanosis Edema: Yes (trace-1+ pretibs bilat) Integumentary: No: Jaundice Neurological: Yes: Alert, Oriented (x3) Psychiatric: No: Agitated Current Medications Generic Name Dose Route Start Last Admin Trade Name Freq PRN Reason Stop Dose Admin Acetaminophen 650 mg 07/02/16 11:24 07/02/16 11:34 Tylenol - PO 650 mg Q6H PRN Administration FEVER OR PAIN Albuterol Sulfate 1 amp 06/30/16 16:35 07/02/16 19:29 Ventolin 0.5% - NEB 1 amp Q6H PRN Administration SHORT OF BREATH/WHEEZING Atorvastatin Calcium 10 mg 06/30/16 22:00 07/02/16 22:42 Lipitor - PO 10 mg HS JEANNA Administration Budesonide/Formoterol Fumarate 2 puff 06/30/16 22:00 07/03/16 09:57 Symbicort 80/4.5mcg - IH 1 inh BID JEANNA Administration Calcium Carbonate/Cholecalciferol 1 tab 07/01/16 10:00 07/03/16 09:57 Os-Misha 500+D - PO 1 tab DAILY JEANNA Administration Diltiazem HCl 180 mg 07/04/16 10:00 Cardizem Cd - PO DAILY JEANNA Furosemide 80 mg 06/30/16 18:15 07/03/16 06:13 Lasix Injection - IVPUSH 80 mg BID@0600,1400 JEANNA Administration Latanoprost 1 drop 06/30/16 22:00 07/02/16 22:42 Xalatan 0.005% Eye Drops - OU 1 drop HS JEANNA Administration Montelukast Sodium 10 mg 06/30/16 22:00 07/02/16 22:42 Singulair - PO 10 mg HS JEANNA Administration Multivitamins/Minerals/Vitamin C 1 tab 07/01/16 10:00 07/03/16 09:57 Tab-A-Vit - PO 1 tab DAILY JEANNA Administration Pantoprazole Sodium 40 mg 07/02/16 10:00 07/03/16 09:57 Protonix - PO 40 mg BID JEANNA Administration Polysaccharide Iron Complex 150 mg 07/03/16 10:00 07/03/16 09:57 Niferex-150 - PO 150 mg DAILY JEANNA Administration Potassium Chloride 20 meq 07/01/16 10:00 07/03/16 09:57 K-Dur - PO 20 meq DAILY JEANNA Administration Sodium Chloride 2 spray 06/30/16 22:00 07/03/16 06:16 [place] Nasal [place] - NS 2 spray TID JEANNA Administration Tiotropium [place] 1 puff 07/02/16 10:00 07/02/16 13:15 Spiriva - IH 1 puff DAILY JEANNA Administration CBC, BMP 07/03/16 06:45 07/03/16 06:45 ekg 06/30 (ER): NSR, normal asix/interv; WNL Echo 08/16: nl LV/EF; RV tds; nl LA; valves WNL; RVSP 40-50 Assessment/Plan acute SOB, acute diast chf: -BNP 600s, similar to when was here with probable chf 08/16 -? sx's due to worsening anemia with hgb 6 -CXR with no sig chf -leg swelling is signif incr'd lately (? abdomen as well per pt), raising suspicion for chf though cannot appreciate JVD on exam -has been complying with torsemide 40 bid at home she says -has been getting lasix 80 iv bid and le edema improved and cr stable thus far. would change back to po torsemide 40 bid when otherwise ready for dc. -no suspicion of ACS, enzymes neg x3 and ecg unremarkable mild pulm HTN: -estimated RVSP 40-50 on recent echo, RV not well seen on that report -? sec to LV diast chf vs ? hypoxic chronic lung dz (on home O2 for copd)-- these 2 dx's are extremely likely to represent the etiology of her pulm htn and tx directed at both (i.e. diuretics and supplemental O2/airways tx) is all that is indicated here COPD, ? with a.e.: -+ wheezing and mild URI sx's -defer to dr taylor, pulm regarding airways-specific tx's HTN: -controlled -will decrease dilt from 180 bid to 180 qd as her bp is on low side and ccb may be worsening le edema anemia, chronic: -baseline hgb runs 8s-9s -currently 6's on admit, likely symptomatic (sob) -hgb back to baseline after prbcs -further w/u of etiology per GI/heme -Pt has no cardiac contraindications (intermediate risk) to EGD/FOC if needed for anemia workup cardiac ramirez remains stable
[2016-07-03] MEDS: TIOTROPIUM BROMIDE 18 MCG/INH (DEVICE W/ 30 CAPSULES) IH SCH (12:48)
--- NOTE | 2016-07-03 14:10 | PN ---
Progress Note (short form) - Note Progress Note: Patient seen and examined No chespt pain , some SOB and dyspnea. No GI complaints No dysuria, hematuria Swelling LE improved Last Vital Signs Temp Pulse Resp BP Pulse Ox 98.4 F 90 20 102/64 97 07/03/16 10:00 07/03/16 10:00 07/03/16 10:00 07/03/16 10:00 07/03/16 09:00 HEENT: RAMONITA, EOM Intact Oropharynx: No thrush, No mucositis, upper denture Cor: RSR, No murmurs, No gallops Lungs: kyphosis, diminished breath sounds, wheezes, Abd: Soft, Normal bowel sounds, No organomegaly Ext:No significant edema Skin: No rashes, Integument intact CBC, BMP 07/03/16 06:45 07/03/16 06:45 Current Medications Generic Name Dose Route Start Last Admin Trade Name Freq PRN Reason Stop Dose Admin Acetaminophen 650 mg 07/02/16 11:24 07/02/16 11:34 Tylenol - PO 650 mg Q6H PRN Administration FEVER OR PAIN Albuterol Sulfate 1 amp 06/30/16 16:35 07/02/16 19:29 Ventolin 0.5% - NEB 1 amp Q6H PRN Administration SHORT OF BREATH/WHEEZING Atorvastatin Calcium 10 mg 06/30/16 22:00 07/02/16 22:42 Lipitor - PO 10 mg HS JEANNA Administration Budesonide/Formoterol Fumarate 2 puff 06/30/16 22:00 07/03/16 09:57 Symbicort 80/4.5mcg - IH 1 inh BID JEANNA Administration Calcium Carbonate/Cholecalciferol 1 tab 07/01/16 10:00 07/03/16 09:57 Os-Misha 500+D - PO 1 tab DAILY JEANNA Administration Diltiazem HCl 180 mg 07/04/16 10:00 Cardizem Cd - PO DAILY JEANNA Furosemide 80 mg 06/30/16 18:15 07/03/16 06:13 Lasix Injection - IVPUSH 80 mg BID@0600,1400 JEANNA Administration Latanoprost 1 drop 06/30/16 22:00 07/02/16 22:42 Xalatan 0.005% Eye Drops - OU 1 drop HS JEANNA Administration Montelukast Sodium 10 mg 06/30/16 22:00 03/02/17 22:42 Singulair - PO 10 mg HS JEANNA Administration Multivitamins/Minerals/Vitamin C 1 tab 07/01/16 10:00 07/03/16 09:57 Tab-A-Vit - PO 1 tab DAILY JEANNA Administration Pantoprazole Sodium 40 mg 07/02/16 10:00 07/03/16 09:57 Protonix - PO 40 mg BID JEANNA Administration Polysaccharide Iron Complex 150 mg 07/03/16 10:00 07/03/16 09:57 Niferex-150 - PO 150 mg DAILY JEANNA Administration Potassium Chloride 20 meq 07/01/16 10:00 07/03/16 09:57 K-Dur - PO 20 meq DAILY JEANNA Administration Sodium Chloride 2 spray 06/30/16 22:00 07/03/16 06:16 [place] Nasal [place] - NS 2 spray TID JEANNA Administration Tiotropium [place] 1 puff 07/02/16 10:00 07/03/16 12:48 Spiriva - IH 1 puff DAILY JEANNA Administration Impression: Anemia--?? secondary to bleeding AVMs- will need outpatient work up CHF - on IV lasix Thrombocytopenia--etiology unclear. elevated,B-12 and folate, normal alb/glob ratio Patient has received 3 units of packed cells to date. To check CBC-- current Hct -28%. Thrombocytopenia- present on admission. Plan Sono of liver and spleen. ck TSH. Problem List - Problems (1) Anemia Code(s): D64.9 - ANEMIA, UNSPECIFIED
--- NOTE | 2016-07-03 14:40 | PN ---
Progress Note, Physician History of Present Illness: pulmonary alert,feeling better,less dyspneic - Current Medication List Current Medications: Active Medications Acetaminophen (Tylenol -) 650 mg PO Q6H PRN PRN Reason: FEVER OR PAIN Last Admin: 07/02/16 11:34 Dose: 650 mg Albuterol Sulfate (Ventolin 0.5% -) 1 amp NEB Q6H PRN PRN Reason: SHORT OF BREATH/WHEEZING Last Admin: 07/02/16 19:29 Dose: 1 amp Atorvastatin Calcium (Lipitor -) 10 mg PO HS [facility] Last Admin: 07/02/16 22:42 Dose: 10 mg Budesonide/Formoterol Fumarate (Symbicort 80/4.5mcg -) 2 puff IH BID [facility] Last Admin: 07/03/16 09:57 Dose: 1 inh Calcium Carbonate/Cholecalciferol (Os-Misha 500+D -) 1 tab PO DAILY [facility] Last Admin: 07/03/16 09:57 Dose: 1 tab Diltiazem HCl (Cardizem Cd -) 180 mg PO DAILY [facility] Furosemide (Lasix Injection -) 80 mg IVPUSH BID@0600,1400 [facility] Last Admin: 07/03/16 06:13 Dose: 80 mg Latanoprost (Xalatan 0.005% Eye Drops -) 1 drop OU [facility] Last Admin: 07/02/16 22:42 Dose: 1 drop Montelukast Sodium (Singulair -) 10 mg PO HS [facility] Last Admin: 07/02/16 22:42 Dose: 10 mg Multivitamins/Minerals/Vitamin C (Tab-A-Vit -) 1 tab PO DAILY [facility] Last Admin: 07/03/16 09:57 Dose: 1 tab Pantoprazole Sodium (Protonix -) 40 mg PO BID [facility] Last Admin: 07/03/16 09:57 Dose: 40 mg Polysaccharide Iron Complex (Niferex-150 -) 150 mg PO DAILY [facility] Last Admin: 07/03/16 09:57 Dose: 150 mg Potassium Chloride (K-Dur -) 20 meq PO DAILY [facility] Last Admin: 07/03/16 09:57 Dose: 20 meq Sodium Chloride ([place] Nasal [place] -) 2 spray NS TID [facility] Last Admin: 07/03/16 06:16 Dose: 2 spray Tiotropium [place] (Spiriva -) 1 puff IH DAILY [facility] Last Admin: 07/03/16 12:48 Dose: 1 puff - Objective Vital Signs: Vital Signs Temperature 98.4 F 07/03/16 10:00 Pulse Rate 90 07/03/16 10:00 Respiratory Rate 20 07/03/16 10:00 Blood Pressure 102/64 07/03/16 10:00 O2 Sat by Pulse Oximetry (%) 97 07/03/16 09:00 Constitutional: Yes: Well Nourished, Calm Eyes: Yes: WNL HENT: Yes: WNL Neck: Yes: WNL Cardiovascular: Yes: Regular Rate and Rhythm, S1, S2 Respiratory: Yes: Diminished, Wheezes (few wheezes) Gastrointestinal: Yes: WNL Extremities: Yes: WNL Edema: Yes Labs: CBC, BMP 07/03/16 06:45 07/03/16 06:45 INR, PTT INR 0.96 (0.82-1.09) 06/30/16 15:00 Problem List - Problems (1) Anemia Code(s): D64.9 - ANEMIA, UNSPECIFIED (2) COPD (chronic obstructive pulmonary disease) Code(s): J44.9 - CHRONIC OBSTRUCTIVE PULMONARY DISEASE, UNSPECIFIED (3) SOB (shortness of breath) Code(s): R06.02 - SHORTNESS OF BREATH (4) CHF (congestive heart failure) Code(s): I50.9 - HEART FAILURE, UNSPECIFIED (5) Hypertension Code(s): I10 - ESSENTIAL (PRIMARY) HYPERTENSION (6) Acute on chronic respiratory failure with hypoxemia Code(s): J96.21 - ACUTE AND CHRONIC RESPIRATORY FAILURE WITH HYPOXIA Assessment/Plan IMP ACUTE ON CHRONIC HYPOXEMIC RESPIRATORY FAILURE ADVANCED COPD ON O2 SEVERE ANEMIA CHF HTN GI BLEED PLAN INHALED BRONCHODILATORS O2 TRANSFUSE PRN LASIX MONITOR H+H Problem List - Problems (1) Anemia Code(s): D64.9 - ANEMIA, UNSPECIFIED (2) COPD (chronic obstructive pulmonary disease) Code(s): J44.9 - CHRONIC OBSTRUCTIVE PULMONARY DISEASE, UNSPECIFIED (3) SOB (shortness of breath) Code(s): R06.02 - SHORTNESS OF BREATH (4) CHF (congestive heart failure) Code(s): I50.9 - HEART FAILURE, UNSPECIFIED (5) Hypertension Code(s): I10 - ESSENTIAL (PRIMARY) HYPERTENSION (6) Acute on chronic respiratory failure with hypoxemia Code(s): J96.21 - ACUTE AND CHRONIC RESPIRATORY FAILURE WITH HYPOXIA
[2016-07-03] MEDS ORDERED: ALBUTEROL SO4 0.083% IH SOL 2.5 MG/3 ML VIAL.NEB. NEB ONE (14:49)
[2016-07-03] MEDS: ALBUTEROL SO4 0.5 % INH SOLN 2.5 MG/0.5 ML VIAL.NEB. NEB PRN ×2 (14:56→21:11)
--- NOTE | 2016-07-03 15:08 | PN ---
Progress Note, Physician Chief Complaint: Ms Hadley says she is improving, still with dyspnea on exertion but better. No cp or n/v. - Current Medication List Current Medications: Active Medications Acetaminophen (Tylenol -) 650 mg PO Q6H PRN PRN Reason: FEVER OR PAIN Last Admin: 07/02/16 11:34 Dose: 650 mg Albuterol Sulfate (Ventolin 0.5% -) 1 amp NEB Q6H PRN PRN Reason: SHORT OF BREATH/WHEEZING Last Admin: 07/03/16 14:56 Dose: 1 amp Atorvastatin Calcium (Lipitor -) 10 mg PO HS [facility] Last Admin: 07/02/16 22:42 Dose: 10 mg Budesonide/Formoterol Fumarate (Symbicort 80/4.5mcg -) 2 puff IH BID [facility] Last Admin: 07/03/16 09:57 Dose: 1 inh Calcium Carbonate/Cholecalciferol (Os-Misha 500+D -) 1 tab PO DAILY [facility] Last Admin: 07/03/16 09:57 Dose: 1 tab Diltiazem HCl (Cardizem Cd -) 180 mg PO DAILY [facility] Furosemide (Lasix Injection -) 80 mg IVPUSH BID@0600,1400 [facility] Last Admin: 07/03/16 06:13 Dose: 80 mg Latanoprost (Xalatan 0.005% Eye Drops -) 1 drop OU [facility] Last Admin: 07/02/16 22:42 Dose: 1 drop Montelukast Sodium (Singulair -) 10 mg PO HS [facility] Last Admin: 07/02/16 22:42 Dose: 10 mg Multivitamins/Minerals/Vitamin C (Tab-A-Vit -) 1 tab PO DAILY [facility] Last Admin: 07/03/16 09:57 Dose: 1 tab Pantoprazole Sodium (Protonix -) 40 mg PO BID [facility] Last Admin: 07/03/16 09:57 Dose: 40 mg Polysaccharide Iron Complex (Niferex-150 -) 150 mg PO DAILY [facility] Last Admin: 07/03/16 09:57 Dose: 150 mg Potassium Chloride (K-Dur -) 20 meq PO DAILY [facility] Last Admin: 07/03/16 09:57 Dose: 20 meq Sodium Chloride ([place] Nasal [place] -) 2 spray NS TID [facility] Last Admin: 07/03/16 06:16 Dose: 2 spray Tiotropium [place] (Spiriva -) 1 puff IH DAILY JEANNA Last Admin: 07/03/16 12:48 Dose: 1 puff - Objective Vital Signs: Vital Signs Temperature 98.4 F 07/03/16 14:00 Pulse Rate 90 07/03/16 14:00 Respiratory Rate 20 07/03/16 14:00 Blood Pressure 102/64 07/03/16 14:00 O2 Sat by Pulse Oximetry (%) 97 07/03/16 09:00 Constitutional: Yes: Well Nourished, No Distress, Calm Cardiovascular: Yes: Regular Rate and Rhythm. No: Gallop, Murmur, Rub Respiratory: Yes: Regular, CTA Bilaterally, On Nasal O2. No: Rales, Rhonchi, Wheezes Gastrointestinal: Yes: Normal Bowel Sounds, Soft. No: Distention, Tenderness Extremities: Yes: WNL Edema: Yes Edema: LLE: Trace, RLE: Trace Labs: CBC, BMP 07/03/16 06:45 07/03/16 06:45 INR, PTT INR 0.96 (0.82-1.09) 06/30/16 15:00 Problem List - Problems (1) Anemia Code(s): D64.9 - ANEMIA, UNSPECIFIED (2) SOB (shortness of breath) Code(s): R06.02 - SHORTNESS OF BREATH (3) CHF (congestive heart failure) Code(s): I50.9 - HEART FAILURE, UNSPECIFIED (4) Hypertension Code(s): I10 - ESSENTIAL (PRIMARY) HYPERTENSION (5) COPD (chronic obstructive pulmonary disease) Code(s): J44.9 - CHRONIC OBSTRUCTIVE PULMONARY DISEASE, UNSPECIFIED Assessment/Plan (1) Anemia Assessment/Plan: -s/p 3 units with good response -however dropping today -GI recommendations are to follow up as outpatient -hematology started niferex -will monitor over the weekend as cannot discharge while actively bleeding Code(s): D64.9 - ANEMIA, UNSPECIFIED (2) SOB (shortness of breath) Assessment/Plan: -improved but still present -transfused as above -ACS ruled out Code(s): R06.02 - SHORTNESS OF BREATH (3) CHF (congestive heart failure) Assessment/Plan: -cardiology consult and note reviewed -on IV lasix 80mg bid Code(s): I50.9 - HEART FAILURE, UNSPECIFIED (4) Hypertension Assessment/Plan: -continue diltiazem and lasix -monitor Code(s): I10 - ESSENTIAL (PRIMARY) HYPERTENSION (5) COPD (chronic obstructive pulmonary disease) Assessment/Plan: -pulmonary consulted Code(s): J44.9 - CHRONIC OBSTRUCTIVE PULMONARY DISEASE, UNSPECIFIED (6) Pain -resolved
--- NOTE | 2016-07-03 15:53 | PN ---
Physical Exam: SUBJECTIVE: Patient seen and examined patient resting in bed comfortably NAD. No acute events overnight. Afebrile and hemodynamically stable. States she feels less SOB and has reduced LE edema. ambulated with walker to bathroom with less exertional SOB, still below baseline. Denies f/c, chest pain, dizziness, cough, abd pain, diarrhea, dysuria. OBJECTIVE: Vital Signs Period Temp Pulse Resp BP Sys/Ellis Pulse Ox Last 24 Hr 97.7 F-98.5 F 87-91 18-20 102-116/52-69 97-99 GENERAL: Awake, alert, and fully oriented, in no acute distress. HEAD: Normal with no signs of trauma. EYES: Pupils equal, round and reactive to light, extraocular movements intact, sclera anicteric, conjunctiva clear. EARS, NOSE, THROAT: Moist mucous membranes. NECK: supple without JVD LUNGS: reduced wheezes, better air movement HEART: Regular rate and rhythm, normal S1 and S2 ABDOMEN: Soft, nontender, not distended, normoactive bowel sounds, no masses. MUSCULOSKELETAL: No CVA tenderness. UPPER EXTREMITIES: 2+ pulses, No peripheral edema. LOWER EXTREMITIES: 2+ pulses, warm, well-perfused. 1+ peripheral edema. NEUROLOGICAL: Cranial nerves II-XII grossly intact. Normal speech. PSYCHIATRIC: Cooperative. Good eye contact. A SKIN: Warm, dry Laboratory Results - last 24 hr 07/03/16 07/03/16 06:45 06:45 WBC 11.1 H RBC 3.98 Hgb 8.6 L D Hct 28.0 L MCV 70.5 L MCHC 30.8 L RDW 29.8 H Plt Count 119 L MPV 8.5 Neutrophils % 78.0 Lymphocytes % 10.0 D Monocytes % 9.5 Eosinophils % 1.8 Basophils % 0.7 Sodium 142 Potassium 3.5 Chloride 98 Carbon Dioxide 38 H Anion Gap 6 L BUN 14 Creatinine 0.7 Random Glucose 76 Calcium 7.9 L Phosphorus 2.9 Magnesium 2.5 H Active Medications Generic Name Dose Route Start Last Admin Trade Name Freq PRN Reason Stop Dose Admin Acetaminophen 650 mg 07/02/16 11:24 07/02/16 11:34 Tylenol - PO 650 mg Q6H PRN Administration FEVER OR PAIN Albuterol Sulfate 1 amp 06/30/16 16:35 07/03/16 14:56 Ventolin 0.5% - NEB 1 amp Q6H PRN Administration SHORT OF BREATH/WHEEZING Atorvastatin Calcium 10 mg 06/30/16 22:00 07/02/16 22:42 Lipitor - PO 10 mg HS JEANNA Administration Budesonide/Formoterol Fumarate 2 puff 06/30/16 22:00 07/03/16 09:57 Symbicort 80/4.5mcg - IH 1 inh BID JEANNA Administration Calcium Carbonate/Cholecalciferol 1 tab 07/01/16 10:00 07/03/16 09:57 Os-Misha 500+D - PO 1 tab DAILY JEANNA Administration Diltiazem HCl 180 mg 07/04/16 10:00 Cardizem Cd - PO DAILY JEANNA Furosemide 80 mg 06/30/16 18:15 07/03/16 06:13 Lasix Injection - IVPUSH 80 mg BID@0600,1400 JEANNA Administration Latanoprost 1 drop 06/30/16 22:00 07/02/16 22:42 Xalatan 0.005% Eye Drops - OU 1 drop HS JEANNA Administration Montelukast Sodium 10 mg 06/30/16 22:00 07/02/16 22:42 Singulair - PO 10 mg HS JEANNA Administration Multivitamins/Minerals/Vitamin C 1 tab 07/01/16 10:00 07/03/16 09:57 Tab-A-Vit - PO 1 tab DAILY JEANNA Administration Pantoprazole Sodium 40 mg 07/02/16 10:00 07/03/16 09:57 Protonix - PO 40 mg BID JEANNA Administration Polysaccharide Iron Complex 150 mg 07/03/16 10:00 07/03/16 09:57 Niferex-150 - PO 150 mg DAILY JEANNA Administration Potassium Chloride 20 meq 07/01/16 10:00 07/03/16 09:57 K-Dur - PO 20 meq DAILY JEANNA Administration Sodium Chloride 2 spray 06/30/16 22:00 07/03/16 06:16 [place] Nasal [place] - NS 2 spray TID JEANNA Administration Tiotropium [place] 1 puff 07/02/16 10:00 07/03/16 12:48 Spiriva - IH 1 puff DAILY JEANNA Administration ASSESSMENT/PLAN: Acute on chronic hypoxic respiratory failure -likely due to exacerbated severe anemia -symptmatically improved, ambulating to bathroom, below baseline -supplemental O2, now on 2L sat 97% at rest -symbicort, singulair, albuterol, spiriva -PT COPD -O2 dependant -mild pulmonary HTN -CXR no acute process Severe symptomatic anemia -acute on chronic -Hx upper GIB (bleeding ulcer 1999) -GI consult: lynda jolly, will scope when respiratory status more stable -hemo consult appreciated: f/u anemia workup -s/p 2.5 U pRBC -monitor h/h (hgb 8.6 today) CHF (HFPEF) -cardiology on case -possible exacerbation HTN -lasix Dispo: We will continue to follow the patient. Thank you for this consultative opportunity. Problem List - Problems (1) Acute on chronic respiratory failure with hypoxemia Code(s): J96.21 - ACUTE AND CHRONIC RESPIRATORY FAILURE WITH HYPOXIA (2) Anemia Code(s): D64.9 - ANEMIA, UNSPECIFIED (3) COPD (chronic obstructive pulmonary disease) Code(s): J44.9 - CHRONIC OBSTRUCTIVE PULMONARY DISEASE, UNSPECIFIED (4) COPD exacerbation Code(s): J44.1 - CHRONIC OBSTRUCTIVE PULMONARY DISEASE W (ACUTE) EXACERBATION (5) SOB (shortness of breath) Code(s): R06.02 - SHORTNESS OF BREATH (6) CHF (congestive heart failure) Code(s): I50.9 - HEART FAILURE, UNSPECIFIED (7) Hypertension Code(s): I10 - ESSENTIAL (PRIMARY) HYPERTENSION (8) GIB (gastrointestinal bleeding) Code(s): K92.2 - GASTROINTESTINAL HEMORRHAGE, UNSPECIFIED Visit type - Emergency Visit Emergency Visit: Yes ED Registration Date: 06/30/16 Care time: The patient presented to the Emergency Department on the above date and was hospitalized for further evaluation of their emergent condition. - New Patient This patient is new to me today: No - Critical Care Critical Care patient: No - Discharge Referral Referred to [facility] No
[2016-07-03] MEDS: ATORVASTATIN CA 10 MG TABLET (FP) PO SCH (21:40)
[2016-07-03] MEDS: MONTELUKAST NA 10 MG TABLET PO SCH (21:40)
[2016-07-03] MEDS: LATANOPROST 0.005% OPHTH SOLN 2.5ML BOTTLE OU SCH (21:41)
[2016-07-04 00:15] LABS: Hgb A2 1.6 % (0.7-3.1)
[2016-07-04] MEDS: FUROSEMIDE 40 MG/4 ML INJECTABLE VIAL IVPUSH SCH ×2 (05:24→14:28)
[2016-07-04] MEDS: SODIUM CHLORIDE NASAL SPRAY 44 ML BOTTLE NS SCH ×3 (05:25→21:27)
[2016-07-04] MEDS ORDERED: PT OWN MED DRAWER 7, Y5N ONE ×4 (09:18→21:22)
[2016-07-04 09:24] LABS: BASOPHIL 0.8 % (0-2.0); EOSINOPHIL 2.1 % (0-4.5); MCH 21.7 pg (25.7-33.7); MCHC 30.4 g/dl (32.0-36.0); MEAN CELL VOLUME 71.3 fl (80-96); MEAN PLT VOLUME 8.7 fl (7.5-11.1); NEUTROPHILS 82.1 % (42.8-82.8); PLATELET COUNT 146 K/MM3 (134-434); RDW 30.9 % (11.6-15.6); WHITE BLOOD COUNT 9.8 K/mm3 (4.0-10.0)
[2016-07-04] MEDS: POTASSIUM CHLORIDE TABS 20 MEQ TABLET.ER (FP) PO SCH (09:26)
[2016-07-04] MEDS: PANTOPRAZOLE 40 MG TABLET (FP) PO SCH ×2 (09:26→21:24)
[2016-07-04] MEDS: TIOTROPIUM BROMIDE 18 MCG/INH (DEVICE W/ 30 CAPSULES) IH SCH (09:26)
[2016-07-04] MEDS: IRON POLYSACCHARIDES 150 MG CAPSULE PO SCH (09:26)
[2016-07-04] MEDS: MULTIVITAMINS (DAILY MVI) TABLET (FP) PO SCH (09:26)
[2016-07-04] MEDS: CALCIUM 500MG/VIT-D 200 UNITS COMBO TABLET (FP) PO SCH (09:26)
[2016-07-04] MEDS: BUDESONIDE/FORMETEROL FUMARATE 80/4.5 mcg INHALER IH SCH ×2 (09:27→21:22)
[2016-07-04] MEDS: ACETAMINOPHEN 325 MG TABLET (FP) PO PRN (09:47)
[2016-07-04 10:03] LABS: CREATININE 0.7 mg/dL (0.55-1.02); MAGNESIUM 2.5 mg/dL (1.8-2.4); PHOSPHOROUS 2.8 mg/dL (2.5-4.9); THYROID STIMULATING HORMONE 1.15 uIU/ml (0.358-3.74)
[2016-07-04] MEDS: ALBUTEROL SO4 0.5 % INH SOLN 2.5 MG/0.5 ML VIAL.NEB. NEB PRN (11:10)
[2016-07-04 12:20] LABS: ANISOCYTOSIS 2+; FRAGMENTED CELL 1+; HYPOCHROMIA 2+; MICROCYTOSIS 2+; OVALOCYTES 1+; PLATELET COMMENT2 NO CLOTTING DETECTED; PLATELET ESTIMATE SLT DECREASED (NORMAL); POIKILOCYTOSIS 2+; POLYCHROMASIA 2+; SPHEROCYTE 1+; STOMATOCYTE 1+
--- NOTE | 2016-07-04 13:10 | PN ---
Progress Note (short form) - Note Progress Note: Continues to have SOB No chest pain or palpitations O/E Heart regular Lungs clear Abd soft Ext no b/l +2 edema Vital Signs Period Temp Pulse Resp BP Sys/Ellis Pulse Ox Last 24 Hr 97.9 F-98.4 F 85-91 20-20 101-120/54-69 97-98 Current Medications Acetaminophen (Tylenol -) 650 mg PO Q6H PRN PRN Reason: FEVER OR PAIN Last Admin: 07/04/16 09:47 Dose: 650 mg Albuterol Sulfate (Ventolin 0.5% -) 1 amp NEB Q6H PRN PRN Reason: SHORT OF BREATH/WHEEZING Last Admin: 07/04/16 11:10 Dose: 1 amp Atorvastatin Calcium (Lipitor -) 10 mg PO HS [facility] Last Admin: 07/03/16 21:40 Dose: 10 mg Budesonide/Formoterol Fumarate (Symbicort 80/4.5mcg -) 2 puff IH BID [facility] Last Admin: 07/04/16 09:27 Dose: 1 inh Calcium Carbonate/Cholecalciferol (Os-Misha 500+D -) 1 tab PO DAILY [facility] Last Admin: 07/04/16 09:26 Dose: 1 tab Diltiazem HCl (Cardizem Cd -) 180 mg PO DAILY [facility] Last Admin: 07/04/16 09:26 Dose: 180 mg Furosemide (Lasix Injection -) 80 mg IVPUSH BID@0600,1400 [facility] Last Admin: 07/04/16 05:24 Dose: 80 mg Latanoprost (Xalatan 0.005% Eye Drops -) 1 drop OU [facility] Last Admin: 07/03/16 21:41 Dose: 1 drop Metolazone (Zaroxolyn -) 5 mg PO ONCE ONE Stop: 07/04/16 13:08 Montelukast Sodium (Singulair -) 10 mg PO HS [facility] Last Admin: 07/03/16 21:40 Dose: 10 mg Multivitamins/Minerals/Vitamin C (Tab-A-Vit -) 1 tab PO DAILY [facility] Last Admin: 07/04/16 09:26 Dose: 1 tab Pantoprazole Sodium (Protonix -) 40 mg PO BID [facility] Last Admin: 07/04/16 09:26 Dose: 40 mg Polysaccharide Iron Complex (Niferex-150 -) 150 mg PO DAILY [facility] Last Admin: 07/04/16 09:26 Dose: 150 mg Potassium Chloride (K-Dur -) 20 meq PO DAILY [facility] Last Admin: 07/04/16 09:26 Dose: 20 meq Sodium Chloride ([place] Nasal [place] -) 2 spray NS TID [facility] Last Admin: 07/04/16 05:25 Dose: 2 spray Tiotropium [place] (Spiriva -) 1 puff IH DAILY [facility] Last Admin: 07/04/16 09:26 Dose: 1 puff Laboratory Last Values WBC 9.8 K/mm3 (4.0-10.0) 07/04/16 07:50 RBC 4.38 M/mm3 (3.60-5.2) 07/04/16 07:50 Hgb 9.5 GM/dL (10.7-15.3) L D 07/04/16 07:50 Hct 31.3 % (32.4-45.2) L 07/04/16 07:50 MCV 71.3 fl (80-96) L 07/04/16 07:50 MCHC 30.4 g/dl (32.0-36.0) L 07/04/16 07:50 RDW 30.9 % (11.6-15.6) H 07/04/16 07:50 Plt Count 146 K/MM3 (134-434) D 07/04/16 07:50 MPV 8.7 fl (7.5-11.1) 07/04/16 07:50 Neutrophils % 82.1 % (42.8-82.8) 07/04/16 07:50 Lymphocytes % 6.1 % (8-40) L D 07/04/16 07:50 Monocytes % 8.9 % (3.8-10.2) 07/04/16 07:50 Eosinophils % 2.1 % (0-4.5) 07/04/16 07:50 Basophils % 0.8 % (0-2.0) 07/04/16 07:50 Differential Comment Slide scanned 07/04/16 07:50 Platelet Estimate Slt decreased (NORMAL) 07/04/16 07:50 Platelet Comment No clumping noted 07/04/16 07:50 Platelet Comment No clotting detected 07/04/16 07:50 Polychromasia 2+ 07/04/16 07:50 Hypochromic-Microcytic 2+ 07/04/16 07:50 Poikilocytosis 2+ 07/04/16 07:50 Basophilic Stippling 1+ 07/04/16 07:50 Anisocytosis 2+ 07/04/16 07:50 Microcytosis 2+ 07/04/16 07:50 Spherocytes 1+ 07/04/16 07:50 Target Cells Few 07/02/16 06:30 Ovalocytes 1+ 07/04/16 07:50 Stomatocytes 1+ 07/04/16 07:50 Fragmented RBCs 1+ 07/04/16 07:50 Retic Count 3.10 % (0.5-1.5) H D 07/01/16 06:50 Hemoglobin A 98.4 % (94.0-98.0) H 07/01/16 06:50 Hemoglobin A2 1.6 % (0.7-3.1) 07/01/16 06:50 Hemoglobin C 0 % (0.0) 07/01/16 06:50 Hemoglobin S 0 % (0.0) 07/01/16 06:50 Variant Hemoglobin TNP 07/01/16 06:50 Hemoglobin Interpret (.) 07/01/16 06:50 Maternal Rh 0 % (0.0-2.0) 07/01/16 06:50 Hemoglobin Solubility Negative (Negative) 07/01/16 06:50 Haptoglobin 173 mg/dL (34-200) 07/01/16 06:50 INR 0.96 (0.82-1.09) 06/30/16 15:00 PTT (Actin FS) 28.5 SECONDS (26.9-34.4) 06/30/16 15:00 Sodium 143 mmol/L (136-145) 07/04/16 07:50 Potassium 4.0 mmol/L (3.5-5.1) 07/04/16 07:50 Chloride 95 mmol/L (98-107) L 07/04/16 07:50 Carbon Dioxide 43 mmol/L (21-32) H 07/04/16 07:50 Anion Gap 5 (8-16) L 07/04/16 07:50 BUN 12 mg/dL (7-18) 07/04/16 07:50 Creatinine 0.7 mg/dL (0.55-1.02) 07/04/16 07:50 Creat Clearance w eGFR > 60 (>60) 06/30/16 13:45 Random Glucose 78 mg/dL (74-106) 07/04/16 07:50 Calcium 8.0 mg/dL (8.5-10.1) L 07/04/16 07:50 Phosphorus 2.8 mg/dL (2.5-4.9) 07/04/16 07:50 Magnesium 2.5 mg/dL (1.8-2.4) H 07/04/16 07:50 Iron 14 ug/dL (27-139) L 06/30/16 18:55 TIBC 428 ug/dL (250-450) 06/30/16 18:55 Iron Saturation 3 % (15-55) L 06/30/16 18:55 Transferrin 376 mg/dL (200-370) H 06/30/16 18:50 Ferritin 9.880 ng/ml (6.9-282.5) 06/30/16 13:45 Total Bilirubin 0.3 mg/dL (0.2-1.0) D 06/30/16 13:45 AST 25 U/L (15-37) 06/30/16 13:45 ALT 27 U/L (12-78) 06/30/16 13:45 Alkaline Phosphatase 89 U/L (45-117) 06/30/16 13:45 LD Total 235 U/L (84-246) D 07/04/16 07:50 Creatine Kinase 70 IU/L (26-192) 07/02/16 14:10 Troponin I < 0.02 ng/ml (0.00-0.05) 07/02/16 14:10 B-Natriuretic Peptide 645.36 pg/ml (5-450) H 06/30/16 13:45 Total Protein 6.9 g/dl (6.4-8.2) 06/30/16 13:45 Albumin 3.7 g/dl (3.4-5.0) 06/30/16 13:45 Vitamin B12 1642 pg/ml (180-914) H 06/30/16 13:45 Serum Folate 88 ng/ml (3.1-17.5) H 06/30/16 13:45 TSH 1.15 uIU/ml (0.358-3.74) 07/04/16 07:50 Urine Color Straw 07/01/16 07:30 Urine Appearance Clear 07/01/16 07:30 Urine pH 7.0 (5.0-8.0) 07/01/16 07:30 Ur Specific [place] 1.008 (1.001-1.035) 07/01/16 07:30 Urine Protein Negative (NEGATIVE) 07/01/16 07:30 Urine Glucose (UA) Negative (NEGATIVE) 07/01/16 07:30 Urine Ketones Negative (NEGATIVE) 07/01/16 07:30 Urine Blood Negative (NEGATIVE) 07/01/16 07:30 Urine Nitrite Negative (NEGATIVE) 07/01/16 07:30 Urine Bilirubin Negative (NEGATIVE) 07/01/16 07:30 Urine Urobilinogen Negative E.U./dl (0.2-1.0) 07/01/16 07:30 Ur Leukocyte Esterase Negative (NEGATIVE) 07/01/16 07:30 Stool Occult Blood Positive (NEGATIVE) 07/01/16 10:20 Blood Type O POSITIVE 06/30/16 14:40 Antibody Screen Negative 06/30/16 14:40 Crossmatch See Detail 06/30/16 14:40 Assessment/Plan (1) Anemia Assessment/Plan: appears stable Code(s): D64.9 - ANEMIA, UNSPECIFIED (2) SOB (shortness of breath) Assessment/Plan: -improved but still present -add Zarox Code(s): R06.02 - SHORTNESS OF BREATH (3) CHF (congestive heart failure) Assessment/Plan: as above Code(s): I50.9 - HEART FAILURE, UNSPECIFIED (4) Hypertension Assessment/Plan: controlled Code(s): I10 - ESSENTIAL (PRIMARY) HYPERTENSION (5) COPD (chronic obstructive pulmonary disease) Assessment/Plan: -pulmonary consulted Code(s): J44.9 - CHRONIC OBSTRUCTIVE PULMONARY DISEASE, UNSPECIFIED
[2016-07-04] MEDS ORDERED: METOLAZONE 5 MG TABLET PO ONE (13:30)
--- NOTE | 2016-07-04 13:33 | PN ---
Progress Note, Physician History of Present Illness: PULMONARY ALERT,OOB-CHAIR,FEELING BETTER,LESS DYSPNEIC - Current Medication List Current Medications: Active Medications Acetaminophen (Tylenol -) 650 mg PO Q6H PRN PRN Reason: FEVER OR PAIN Last Admin: 07/04/16 09:47 Dose: 650 mg Albuterol Sulfate (Ventolin 0.5% -) 1 amp NEB Q6H PRN PRN Reason: SHORT OF BREATH/WHEEZING Last Admin: 07/04/16 11:10 Dose: 1 amp Atorvastatin Calcium (Lipitor -) 10 mg PO HS [facility] Last Admin: 07/03/16 21:40 Dose: 10 mg Budesonide/Formoterol Fumarate (Symbicort 80/4.5mcg -) 2 puff IH BID [facility] Last Admin: 07/04/16 09:27 Dose: 1 inh Calcium Carbonate/Cholecalciferol (Os-Misha 500+D -) 1 tab PO DAILY [facility] Last Admin: 07/04/16 09:26 Dose: 1 tab Diltiazem HCl (Cardizem Cd -) 180 mg PO DAILY [facility] Last Admin: 07/04/16 09:26 Dose: 180 mg Furosemide (Lasix Injection -) 80 mg IVPUSH BID@0600,1400 [facility] Last Admin: 07/04/16 05:24 Dose: 80 mg Latanoprost (Xalatan 0.005% Eye Drops -) [address] [facility] Last Admin: 07/03/16 21:41 Dose: 1 drop Metolazone (Zaroxolyn -) 5 mg PO ONCE ONE Stop: 07/04/16 13:31 Montelukast Sodium (Singulair -) [address] [facility] Last Admin: 07/03/16 21:40 Dose: 10 mg Multivitamins/Minerals/Vitamin C (Tab-A-Vit -) 1 tab PO DAILY [facility] Last Admin: 07/04/16 09:26 Dose: 1 tab Pantoprazole Sodium (Protonix -) 40 mg PO BID [facility] Last Admin: 07/04/16 09:26 Dose: 40 mg Polysaccharide Iron Complex (Niferex-150 -) 150 mg PO DAILY [facility] Last Admin: 07/04/16 09:26 Dose: 150 mg Potassium Chloride (K-Dur -) 20 meq PO DAILY [facility] Last Admin: 07/04/16 09:26 Dose: 20 meq Sodium Chloride ([place] Nasal [place] -) 2 spray NS TID [facility] Last Admin: 07/04/16 05:25 Dose: 2 spray Tiotropium [place] (Spiriva -) 1 puff IH DAILY [facility] Last Admin: 07/04/16 09:26 Dose: 1 puff - Objective Vital Signs: Vital Signs Temperature 98.4 F 07/04/16 10:00 Pulse Rate 86 07/04/16 10:00 Respiratory Rate 20 07/04/16 10:00 Blood Pressure 118/66 07/04/16 10:00 O2 Sat by Pulse Oximetry (%) 98 07/04/16 09:00 Constitutional: Yes: Well Nourished, Calm Eyes: Yes: WNL HENT: Yes: WNL Neck: Yes: Supple Cardiovascular: Yes: Regular Rate and Rhythm, S1, S2 Respiratory: Yes: Wheezes (FEW WHEEZES) Gastrointestinal: Yes: Normal Bowel Sounds, Soft Extremities: Yes: WNL Edema: Yes Labs: CBC, BMP 07/04/16 07:50 07/04/16 07:50 INR, PTT INR 0.96 (0.82-1.09) 06/30/16 15:00 Problem List - Problems (1) Anemia Code(s): D64.9 - ANEMIA, UNSPECIFIED (2) COPD (chronic obstructive pulmonary disease) Code(s): J44.9 - CHRONIC OBSTRUCTIVE PULMONARY DISEASE, UNSPECIFIED (3) SOB (shortness of breath) Code(s): R06.02 - SHORTNESS OF BREATH (4) CHF (congestive heart failure) Code(s): I50.9 - HEART FAILURE, UNSPECIFIED (5) Hypertension Code(s): I10 - ESSENTIAL (PRIMARY) HYPERTENSION (6) Acute on chronic respiratory failure with hypoxemia Code(s): J96.21 - ACUTE AND CHRONIC RESPIRATORY FAILURE WITH HYPOXIA Assessment/Plan IMP ACUTE ON CHRONIC HYPOXEMIC RESPIRATORY FAILURE IMPROVING ADVANCED COPD ON O2 SEVERE ANEMIA CHF HTN GI BLEED PLAN INHALED BRONCHODILATORS O2 TRANSFUSE PRN LASIX MONITOR H+H Problem List - Problems (1) Anemia Code(s): D64.9 - ANEMIA, UNSPECIFIED (2) COPD (chronic obstructive pulmonary disease) Code(s): J44.9 - CHRONIC OBSTRUCTIVE PULMONARY DISEASE, UNSPECIFIED (3) SOB (shortness of breath) Code(s): R06.02 - SHORTNESS OF BREATH (4) CHF (congestive heart failure) Code(s): I50.9 - HEART FAILURE, UNSPECIFIED (5) Hypertension Code(s): I10 - ESSENTIAL (PRIMARY) HYPERTENSION (6) Acute on chronic respiratory failure with hypoxemia Code(s): J96.21 - ACUTE AND CHRONIC RESPIRATORY FAILURE WITH HYPOXIA
[2016-07-04] MEDS: LATANOPROST 0.005% OPHTH SOLN 2.5ML BOTTLE OU SCH (21:20)
[2016-07-04] MEDS: MONTELUKAST NA 10 MG TABLET PO SCH (21:26)
[2016-07-04] MEDS: ATORVASTATIN CA 10 MG TABLET (FP) PO SCH (21:26)
[2016-07-05] MEDS: FUROSEMIDE 40 MG/4 ML INJECTABLE VIAL IVPUSH SCH ×2 (06:06→14:45)
[2016-07-05] MEDS: SODIUM CHLORIDE NASAL SPRAY 44 ML BOTTLE NS SCH ×3 (06:13→21:25)
[2016-07-05] MEDS ORDERED: PT OWN MED DRAWER 7, Y5N ONE ×3 (08:56→21:11)
[2016-07-05] MEDS: POTASSIUM CHLORIDE TABS 20 MEQ TABLET.ER (FP) PO SCH (08:59)
[2016-07-05] MEDS: PANTOPRAZOLE 40 MG TABLET (FP) PO SCH ×2 (08:59→21:26)
[2016-07-05] MEDS: CALCIUM 500MG/VIT-D 200 UNITS COMBO TABLET (FP) PO SCH (08:59)
[2016-07-05] MEDS: MULTIVITAMINS (DAILY MVI) TABLET (FP) PO SCH (08:59)
[2016-07-05] MEDS: TIOTROPIUM BROMIDE 18 MCG/INH (DEVICE W/ 30 CAPSULES) IH SCH (08:59)
[2016-07-05] MEDS: BUDESONIDE/FORMETEROL FUMARATE 80/4.5 mcg INHALER IH SCH ×2 (08:59→21:25)
[2016-07-05] MEDS: ACETAMINOPHEN 325 MG TABLET (FP) PO PRN (09:13)
[2016-07-05] MEDS: IRON POLYSACCHARIDES 150 MG CAPSULE PO SCH (10:04)
--- NOTE | 2016-07-05 11:38 | PN ---
Progress Note (short form) - Note Progress Note: SOB is a bit beter today Voided a lot of urine and the leg swelling is better Current Medications Acetaminophen (Tylenol -) 650 mg PO Q6H PRN PRN Reason: FEVER OR PAIN Last Admin: 07/05/16 09:13 Dose: 650 mg Albuterol Sulfate (Ventolin 0.5% -) 1 amp NEB Q6H PRN PRN Reason: SHORT OF BREATH/WHEEZING Last Admin: 07/04/16 11:10 Dose: 1 amp Atorvastatin Calcium (Lipitor -) 10 mg PO HS [facility] Last Admin: 07/04/16 21:26 Dose: 10 mg Budesonide/Formoterol Fumarate (Symbicort 80/4.5mcg -) 2 puff IH BID [facility] Last Admin: 07/05/16 08:59 Dose: 2 inh Calcium Carbonate/Cholecalciferol (Os-Misha 500+D -) 1 tab PO DAILY [facility] Last Admin: 07/05/16 08:59 Dose: 1 tab Diltiazem HCl (Cardizem Cd -) 180 mg PO DAILY [facility] Last Admin: 07/05/16 08:59 Dose: 180 mg Furosemide (Lasix Injection -) 80 mg IVPUSH BID@0600,1400 [facility] Last Admin: 07/05/16 06:06 Dose: 80 mg Latanoprost (Xalatan 0.005% Eye Drops -) 1 drop OU [facility] Last Admin: 07/04/16 21:20 Dose: 1 drop Montelukast Sodium (Singulair -) 10 mg PO HS [facility] Last Admin: 07/04/16 21:26 Dose: 10 mg Multivitamins/Minerals/Vitamin C (Tab-A-Vit -) 1 tab PO DAILY [facility] Last Admin: 07/05/16 08:59 Dose: 1 tab Pantoprazole Sodium (Protonix -) 40 mg PO BID [facility] Last Admin: 07/05/16 08:59 Dose: 40 mg Polysaccharide Iron Complex (Niferex-150 -) 150 mg PO DAILY [facility] Last Admin: 07/05/16 10:04 Dose: 150 mg Potassium Chloride (K-Dur -) 20 meq PO DAILY [facility] Last Admin: 07/05/16 08:59 Dose: 20 meq Sodium Chloride ([place] Nasal [place] -) 2 spray NS TID [facility] Last Admin: 07/05/16 06:13 Dose: 2 spray Tiotropium [place] (Spiriva -) 1 puff IH DAILY [facility] Last Admin: 07/05/16 08:59 Dose: 1 puff O/E Laboratory Results - last 24 hr 06/30/16 07/04/16 14:40 07:50 Differential Comment Slide scanned Platelet Estimate Slt decreased Platelet Comment No clotting detected Polychromasia 2+ Hypochromic-Microcytic 2+ Poikilocytosis 2+ Basophilic Stippling 1+ Anisocytosis 2+ Microcytosis 2+ Spherocytes 1+ Ovalocytes 1+ Stomatocytes 1+ Fragmented RBCs 1+ Blood Type O POSITIVE Antibody Screen Negative Crossmatch See Detail Vital Signs Period Temp Pulse Resp BP Sys/Ellis Pulse Ox Last 24 Hr 97.4 F-98.1 F 92-109 18-20 122-133/60-75 98-99 Assessment/Plan (1) Anemia Assessment/Plan: appears stable Code(s): D64.9 - ANEMIA, UNSPECIFIED (2) SOB (shortness of breath) Assessment/Plan: -improved but still present -Cont Zarox Code(s): R06.02 - SHORTNESS OF BREATH (3) CHF (congestive heart failure) Assessment/Plan: as above Code(s): I50.9 - HEART FAILURE, UNSPECIFIED (4) Hypertension Assessment/Plan: controlled Code(s): I10 - ESSENTIAL (PRIMARY) HYPERTENSION (5) COPD (chronic obstructive pulmonary disease) Assessment/Plan: -pulmonary consulted Code(s): J44.9 - CHRONIC OBSTRUCTIVE PULMONARY DISEASE, UNSPECIFIED
--- NOTE | 2016-07-05 13:26 | PN ---
Progress Note, Physician History of Present Illness: pulmonary alert,feeling better,oob-chair - Current Medication List Current Medications: Active Medications Acetaminophen (Tylenol -) 650 mg PO Q6H PRN PRN Reason: FEVER OR PAIN Last Admin: 07/05/16 09:13 Dose: 650 mg Albuterol Sulfate (Ventolin 0.5% -) 1 amp NEB Q6H PRN PRN Reason: SHORT OF BREATH/WHEEZING Last Admin: 07/04/16 11:10 Dose: 1 amp Atorvastatin Calcium (Lipitor -) 10 mg PO HS [facility] Last Admin: 07/04/16 21:26 Dose: 10 mg Budesonide/Formoterol Fumarate (Symbicort 80/4.5mcg -) 2 puff IH BID [facility] Last Admin: 07/05/16 08:59 Dose: 2 inh Calcium Carbonate/Cholecalciferol (Os-Misha 500+D -) 1 tab PO DAILY [facility] Last Admin: 07/05/16 08:59 Dose: 1 tab Diltiazem HCl (Cardizem Cd -) 180 mg PO DAILY [facility] Last Admin: 07/05/16 08:59 Dose: 180 mg Furosemide (Lasix Injection -) 80 mg IVPUSH BID@0600,1400 [facility] Last Admin: 07/05/16 06:06 Dose: 80 mg Latanoprost (Xalatan 0.005% Eye Drops -) 1 drop OU HS [facility] Last Admin: 07/04/16 21:20 Dose: 1 drop Metolazone (Zaroxolyn -) 2.5 mg PO DAILY@1330 [facility] Montelukast Sodium (Singulair -) 10 mg PO HS [facility] Last Admin: 07/04/16 21:26 Dose: 10 mg Multivitamins/Minerals/Vitamin C (Tab-A-Vit -) 1 tab PO DAILY [facility] Last Admin: 07/05/16 08:59 Dose: 1 tab Pantoprazole Sodium (Protonix -) 40 mg PO BID [facility] Last Admin: 07/05/16 08:59 Dose: 40 mg Polysaccharide Iron Complex (Niferex-150 -) 150 mg PO DAILY [facility] Last Admin: 07/05/16 10:04 Dose: 150 mg Potassium Chloride (K-Dur -) 20 meq PO DAILY [facility] Last Admin: 07/05/16 08:59 Dose: 20 meq Sodium Chloride ([place] Nasal [place] -) 2 spray NS TID [facility] Last Admin: 07/05/16 06:13 Dose: 2 spray Tiotropium [place] (Spiriva -) 1 puff IH DAILY [facility] Last Admin: 07/05/16 08:59 Dose: 1 puff - Objective Vital Signs: Vital Signs Temperature 98.1 F 07/05/16 10:00 Pulse Rate 92 H 07/05/16 10:00 Respiratory Rate 18 07/05/16 10:00 Blood Pressure 127/60 07/05/16 10:00 O2 Sat by Pulse Oximetry (%) 99 07/05/16 09:00 Constitutional: Yes: Well Nourished, Calm Eyes: Yes: WNL HENT: Yes: WNL Neck: Yes: Supple Cardiovascular: Yes: Regular Rate and Rhythm, S1, S2 Respiratory: Yes: Diminished, Wheezes (few wheezes samuel) Gastrointestinal: Yes: Normal Bowel Sounds, Soft Extremities: Yes: WNL Edema: Yes Labs: CBC, BMP 07/04/16 07:50 07/04/16 07:50 INR, PTT INR 0.96 (0.82-1.09) 06/30/16 15:00 Problem List - Problems (1) Anemia Code(s): D64.9 - ANEMIA, UNSPECIFIED (2) COPD (chronic obstructive pulmonary disease) Code(s): J44.9 - CHRONIC OBSTRUCTIVE PULMONARY DISEASE, UNSPECIFIED (3) SOB (shortness of breath) Code(s): R06.02 - SHORTNESS OF BREATH (4) CHF (congestive heart failure) Code(s): I50.9 - HEART FAILURE, UNSPECIFIED (5) Hypertension Code(s): I10 - ESSENTIAL (PRIMARY) HYPERTENSION (6) Acute on chronic respiratory failure with hypoxemia Code(s): J96.21 - ACUTE AND CHRONIC RESPIRATORY FAILURE WITH HYPOXIA Assessment/Plan IMP ACUTE ON CHRONIC HYPOXEMIC RESPIRATORY FAILURE IMPROVING ADVANCED COPD ON O2 SEVERE ANEMIA CHF HTN GI BLEED PLAN INHALED BRONCHODILATORS O2 TRANSFUSE PRN LASIX MONITOR H+H Problem List - Problems (1) Anemia Code(s): D64.9 - ANEMIA, UNSPECIFIED (2) COPD (chronic obstructive pulmonary disease) Code(s): J44.9 - CHRONIC OBSTRUCTIVE PULMONARY DISEASE, UNSPECIFIED (3) SOB (shortness of breath) Code(s): R06.02 - SHORTNESS OF BREATH (4) CHF (congestive heart failure) Code(s): I50.9 - HEART FAILURE, UNSPECIFIED (5) Hypertension Code(s): I10 - ESSENTIAL (PRIMARY) HYPERTENSION (6) Acute on chronic respiratory failure with hypoxemia Code(s): J96.21 - ACUTE AND CHRONIC RESPIRATORY FAILURE WITH HYPOXIA
[2016-07-05] MEDS: ALBUTEROL SO4 0.5 % INH SOLN 2.5 MG/0.5 ML VIAL.NEB. NEB PRN (13:30)
[2016-07-05] MEDS ORDERED: METOLAZONE 2.5 MG TABLET (FP) PO SCH (13:30)
--- NOTE | 2016-07-05 15:58 | PN ---
Progress Note (short form) - Note Progress Note: CC: sob s: no cp palps dizzy; silva improving not yet back to baseline. LE edema and poor appetite resolved. o: Current Medications Acetaminophen (Tylenol -) 650 mg PO Q6H PRN PRN Reason: FEVER OR PAIN Last Admin: 07/05/16 09:13 Dose: 650 mg Albuterol Sulfate (Ventolin 0.5% -) 1 amp NEB Q6H PRN PRN Reason: SHORT OF BREATH/WHEEZING Last Admin: 07/05/16 13:30 Dose: 1 amp Atorvastatin Calcium (Lipitor -) 10 mg PO HS [facility] Last Admin: 07/04/16 21:26 Dose: 10 mg Budesonide/Formoterol Fumarate (Symbicort 80/4.5mcg -) 2 puff IH BID [facility] Last Admin: 07/05/16 08:59 Dose: 2 inh Calcium Carbonate/Cholecalciferol (Os-Misha 500+D -) 1 tab PO DAILY [facility] Last Admin: 07/05/16 08:59 Dose: 1 tab Diltiazem HCl (Cardizem Cd -) 180 mg PO DAILY [facility] Last Admin: 07/05/16 08:59 Dose: 180 mg Furosemide (Lasix Injection -) 80 mg IVPUSH BID@0600,1400 [facility] Last Admin: 07/05/16 14:45 Dose: 80 mg Latanoprost (Xalatan 0.005% Eye Drops -) 1 drop OU [facility] Last Admin: 07/04/16 21:20 Dose: 1 drop Metolazone (Zaroxolyn -) 2.5 mg PO DAILY@1330 [facility] Last Admin: 07/05/16 14:16 Dose: 2.5 mg Montelukast Sodium (Singulair -) 10 mg PO HS [facility] Last Admin: 07/04/16 21:26 Dose: 10 mg Multivitamins/Minerals/Vitamin C (Tab-A-Vit -) 1 tab PO DAILY [facility] Last Admin: 07/05/16 08:59 Dose: 1 tab Pantoprazole Sodium (Protonix -) 40 mg PO BID [facility] Last Admin: 07/05/16 08:59 Dose: 40 mg Polysaccharide Iron Complex (Niferex-150 -) 150 mg PO DAILY [facility] Last Admin: 07/05/16 10:04 Dose: 150 mg Potassium Chloride (K-Dur -) 20 meq PO DAILY [facility] Last Admin: 07/05/16 08:59 Dose: 20 meq Sodium Chloride ([place] Nasal [place] -) 2 spray NS TID [facility] Last Admin: 07/05/16 14:16 Dose: 2 spray Tiotropium [place] (Spiriva -) 1 puff IH DAILY [facility] Last Admin: 07/05/16 08:59 Dose: 1 puff Vital Signs - 24 hr 07/04/16 07/04/16 07/05/16 20:48 21:00 06:00 Temperature 97.4 F L 97.5 F L Pulse Rate 98 H 98 H Respiratory 20 20 18 Rate Blood Pressure 133/75 126/65 O2 Sat by Pulse 98 Oximetry (%) 07/05/16 07/05/16 07/05/16 09:00 10:00 14:07 Temperature 98.1 F 97.4 F L Pulse Rate 92 H 108 H Respiratory 18 Rate Blood Pressure 127/60 127/71 O2 Sat by Pulse 99 Oximetry (%) Intake & Output 07/03/16 07/04/16 07/05/16 07/06/16 07:59 07:59 07:59 07:59 Intake Total 9840 579 0055 1250 Balance 0254 457 1001 1250 Weight 121 lb 12.8 oz 122 lb 7 oz 117 lb 14.4 oz Constitutional: Yes: Well Nourished, No Distress Eyes: No: Sclera Icterus Respiratory: Yes: mild bl wheeze diminshed air movement Gastrointestinal: Yes: Normal Bowel Sounds. No: Distention, Hepatomegaly, Palpable Mass, Tenderness Cardiovascular: Yes: Regular Rate and Rhythm JVD: No Heart Sounds: Yes: S1, S2. No: Gallop Murmur: 2/6 at lsb Extremities: No: Cold, Cyanosis Edema: no Integumentary: No: Jaundice Neurological: Yes: Alert, Oriented (x3) Psychiatric: No: Agitated no CBC, BMP today 07/04/16 07:50 07/04/16 07:50 Laboratory Tests 07/04/16 07:50 TSH 1.15 ekg 06/30 (ER): NSR, normal asix/interv; WNL Echo 08/16: nl LV/EF; RV tds; nl LA; valves WNL; RVSP 40-50 Assessment/Plan acute SOB, acute diast chf: -BNP 600s, similar to when was here with probable chf 08/16 -? sx's due to worsening anemia with hgb 6 -CXR with no sig chf -leg swelling is signif incr'd lately (? abdomen as well per pt), raising suspicion for chf though cannot appreciate JVD on exam -has been complying with torsemide 40 bid at home she says -has been getting lasix 80 iv bid and le edema improved and cr stable thus far. -no suspicion of ACS, enzymes neg x3 and ecg unremarkable - appears euvolemic today. Would change back to po torsemide 40 bid and stop metolazone. Repeat bmp. mild pulm HTN: -estimated RVSP 40-50 on recent echo, RV not well seen on that report -? sec to LV diast chf vs ? hypoxic chronic lung dz (on home O2 for copd)-- these 2 dx's are extremely likely to represent the etiology of her pulm htn and tx directed at both (i.e. diuretics and supplemental O2/airways tx) is all that is indicated here COPD, ? with a.e.: -+ wheezing and mild URI sx's -defer to dr taylor, pulm regarding airways-specific tx's HTN: -controlled -decreased dilt from 180 bid to 180 qd as her bp is on low side and ccb may be worsening le edema anemia, chronic: -baseline hgb runs 8s-9s - 6's on admit, likely symptomatic (sob) -hgb back to baseline after prbcs -further w/u of etiology per GI/heme -Pt has no cardiac contraindications (intermediate risk) to EGD/FOC if needed for anemia workup cardiac ramirez remains stable
[2016-07-05] MEDS ORDERED: ALBUTEROL SO4 0.083% IH SOL 2.5 MG/3 ML VIAL.NEB. NEB ONE (20:08)
[2016-07-05] MEDS: LATANOPROST 0.005% OPHTH SOLN 2.5ML BOTTLE OU SCH (21:24)
[2016-07-05] MEDS: ATORVASTATIN CA 10 MG TABLET (FP) PO SCH (21:26)
[2016-07-05] MEDS: MONTELUKAST NA 10 MG TABLET PO SCH (21:26)
[2016-07-06] MEDS ORDERED: TORSEMIDE 20 MG TABLET (FP) PO SCH (06:00)
[2016-07-06] MEDS: SODIUM CHLORIDE NASAL SPRAY 44 ML BOTTLE NS SCH ×3 (06:11→21:30)
[2016-07-06 07:28] LABS: MCH 22.2 pg (25.7-33.7); MCHC 31.2 g/dl (32.0-36.0); MEAN CELL VOLUME 70.9 fl (80-96); MEAN PLT VOLUME 8.5 fl (7.5-11.1); PLATELET COUNT 226 K/MM3 (134-434); RDW 32.1 % (11.6-15.6); WHITE BLOOD COUNT 10.8 K/mm3 (4.0-10.0)
[2016-07-06 08:37] LABS: CALCIUM 9.1 mg/dL (8.5-10.1)
[2016-07-06 08:38] LABS: CREATININE 0.8 mg/dL (0.55-1.02)
[2016-07-06] MEDS ORDERED: PT OWN MED DRAWER 7, Y5N ONE (09:16)
[2016-07-06] MEDS: POTASSIUM CHLORIDE TABS 20 MEQ TABLET.ER (FP) PO SCH (09:18)
[2016-07-06] MEDS: IRON POLYSACCHARIDES 150 MG CAPSULE PO SCH (09:18)
[2016-07-06] MEDS: CALCIUM 500MG/VIT-D 200 UNITS COMBO TABLET (FP) PO SCH (09:18)
[2016-07-06] MEDS: PANTOPRAZOLE 40 MG TABLET (FP) PO SCH ×2 (09:19→21:29)
[2016-07-06] MEDS: MULTIVITAMINS (DAILY MVI) TABLET (FP) PO SCH (09:19)
[2016-07-06] MEDS: TIOTROPIUM BROMIDE 18 MCG/INH (DEVICE W/ 30 CAPSULES) IH SCH (09:19)
[2016-07-06] MEDS: BUDESONIDE/FORMETEROL FUMARATE 80/4.5 mcg INHALER IH SCH ×2 (09:19→21:30)
[2016-07-06] MEDS: ACETAMINOPHEN 325 MG TABLET (FP) PO PRN (09:24)
[2016-07-06] MEDS: KCL 10 MEQ IVPB 100 ML IVPB SCH ×3 (10:27→13:40)
--- NOTE | 2016-07-06 11:25 | EKG ---
Test Reason : Blood Pressure : / mmHG Vent. Rate : 097 BPM Atrial Rate : 097 BPM P-R Int : 126 ms QRS Dur : 096 ms QT Int : 348 ms P-R-T Axes : 069 -01 033 degrees QTc Int : 441 ms NORMAL SINUS RHYTHM NORMAL ECG WHEN COMPARED WITH ECG OF 30-AUG-2015 21:24, NO SIGNIFICANT CHANGE WAS FOUND Confirmed by KEENAN YOST MD ([id number]) on 07/06/2016 11:25:44 AM Referred By: Confirmed By:KEENAN YOST MD
[2016-07-06] MEDS: ALBUTEROL SO4 0.083% IH SOL 2.5 MG/3 ML VIAL.NEB. NEB PRN (11:44)
--- NOTE | 2016-07-06 11:49 | PN ---
Progress Note, Physician Chief Complaint: sob, chf History of Present Illness: swelling resolved; sob persists but slightly better; longstanding chronic dry cough persists no cp, palpit - Current Medication List Current Medications: Active Medications Acetaminophen (Tylenol -) 650 mg PO Q6H PRN PRN Reason: FEVER OR PAIN Last Admin: 07/06/16 09:24 Dose: 650 mg Albuterol Sulfate (Ventolin 0.083% Nebulizer Soln -) 1 amp NEB Q6H PRN PRN Reason: SHORT OF BREATH/WHEEZING Atorvastatin Calcium (Lipitor -) 10 mg PO HS [facility] Last Admin: 07/05/16 21:26 Dose: 10 mg Budesonide/Formoterol Fumarate (Symbicort 80/4.5mcg -) 2 puff IH BID [facility] Last Admin: 07/06/16 09:19 Dose: 2 inh Calcium Carbonate/Cholecalciferol (Os-Misha 500+D -) 1 tab PO DAILY [facility] Last Admin: 07/06/16 09:18 Dose: 1 tab Diltiazem HCl (Cardizem Cd -) 180 mg PO DAILY [facility] Last Admin: 07/06/16 09:18 Dose: 180 mg Potassium Chloride (Potassium Chloride 10 Meq Premix Ivpb -) 100 mls @ 100 mls/ hr IVPB Q60M [facility] Stop: 07/06/16 12:59 Last Admin: 07/06/16 11:41 Dose: 100 mls/hr Latanoprost (Xalatan 0.005% Eye Drops -) 1 drop OU [facility] Last Admin: 07/05/16 21:24 Dose: 1 drop Montelukast Sodium (Singulair -) 10 mg PO [facility] Last Admin: 07/05/16 21:26 Dose: 10 mg Multivitamins/Minerals/Vitamin C (Tab-A-Vit -) 1 tab PO DAILY [facility] Last Admin: 07/06/16 09:19 Dose: 1 tab Pantoprazole Sodium (Protonix -) 40 mg PO BID [facility] Last Admin: 07/06/16 09:19 Dose: 40 mg Polysaccharide Iron Complex (Niferex-150 -) 150 mg PO DAILY [facility] Last Admin: 07/06/16 09:18 Dose: 150 mg Potassium Chloride (K-Dur -) 20 meq PO DAILY [facility] Last Admin: 07/06/16 09:18 Dose: 20 meq Sodium Chloride ([place] Nasal [place] -) 2 spray NS TID [facility] Last Admin: 07/06/16 06:11 Dose: 2 spray Tiotropium [place] (Spiriva -) 1 puff IH DAILY [facility] Last Admin: 07/06/16 09:19 Dose: 1 puff Torsemide (Demadex -) 40 mg PO BID@0600,1400 [facility] Last Admin: 07/06/16 06:11 Dose: 40 mg - Objective Vital Signs: Vital Signs Temperature 98.4 F 07/06/16 10:00 Pulse Rate 92 H 07/06/16 10:00 Respiratory Rate 18 07/06/16 10:00 Blood Pressure 132/71 07/06/16 10:00 O2 Sat by Pulse Oximetry (%) 99 07/06/16 08:58 Constitutional: Yes: Well Nourished, No Distress, Calm Cardiovascular: Yes: Regular Rate and Rhythm, S1, S2. No: Gallop, Murmur Respiratory: Yes: Regular, CTA Bilaterally. No: Accessory Muscle Use, Rales, Wheezes Extremities: No: Cold Edema: No Neurological: Yes: Alert, Oriented Psychiatric: No: Agitated Labs: CBC, BMP 07/06/16 06:05 07/06/16 06:05 INR, PTT INR 0.96 (0.82-1.09) 06/30/16 15:00 Assessment/Plan Echo 08/16: nl LV/EF; RV tds; nl LA; valves WNL; RVSP 40-50 Assessment/Plan acute diast chf, a.e. copd vs viral bronchitis: -BNP 600s, similar to when was here with probable chf 08/16 -? sx's due to worsening anemia with hgb 6 -CXR with no sig chf -leg swelling is signif incr'd lately (? abdomen as well per pt), raising suspicion for chf though cannot appreciate JVD on exam -has been complying with torsemide 40 bid at home she says -has been getting lasix 80 iv bid and le edema improved and cr stable thus far. -no suspicion of ACS, enzymes neg x3 and ecg unremarkable -07/05: appears euvolemic, change back to po torsemide 40 bid and stop metolazone. -6: wt down from 124 to 115 lbs here, bicarb and bun up today, K very low (2.7 ) which is likely metolazone effect--will hold torsemide tonight dose, reassess labs in am -ongoing sob is likely copd sx vs bronchitis--per pulm mild pulm HTN: -estimated RVSP 40-50 on recent echo, RV not well seen on that report -? sec to LV diast chf vs ? hypoxic chronic lung dz (on home O2 for copd)-- these 2 dx's are extremely likely to represent the etiology of her pulm htn and tx directed at both (i.e. diuretics and supplemental O2/airways tx) is all that is indicated here COPD, ? with a.e.: -+ wheezing and mild URI sx's -defer to dr taylor, pulm regarding airways-specific tx's HTN: -controlled -decreased dilt from 180 bid to 180 qd as her bp is on low side and ccb may be worsening le edema Fe-def anemia, acute on chronic: -baseline hgb runs 8s-9s - 6's on admit, likely symptomatic (sob) -hgb back to baseline after prbcs -seen by GI--recommending outpt scopes -Pt has no cardiac contraindications (intermediate risk) to EGD/FOC, currently well-compensated chf status
--- NOTE | 2016-07-06 12:08 | CONSULT ---
Consult - text type - Consultation Consultation Note: Podiatry Consultation: 75 year old pleasant F, admitted for SOB. Podiatry consultation requested for treatment of elongated, discolored, thickened toe nails. She denies F/V/N/C, afebrile. PMHx: HTN, COPD, OA, anemia Meds: noted in chart NKMA MAURA: Pedal pulses palpable, TG wnl, CFT brisk to all toes. Nails are elongated, discolored, thickened, tender x 10 with subungual debris. There are no open wounds, no nail bed lesions, no signs of active infection. Imp: 75 year old F with onychomycosis x 10 1. Manual debridement of mycotic nails x 10 with nail nipper. Pt tolerated the procedure well without complications. 2. Appropriate foot hygiene discussed. 3. Patient may f/u in 3 months for routine care either in [facility] ) or my private [place] office ([phone]). 4. Thank you for the courtesy of this consultation. Eliza Mayberry DPM
[2016-07-06] MEDS ORDERED: POTASSIUM CHLORIDE TABS 20 MEQ TABLET.ER (FP) PO ONE (12:15)
--- NOTE | 2016-07-06 14:08 | PN ---
Progress Note, Physician Chief Complaint: Ms Hadley says she is feeling better. SOB much improved. No cp or n/v. - Current Medication List Current Medications: Active Medications Acetaminophen (Tylenol -) 650 mg PO Q6H PRN PRN Reason: FEVER OR PAIN Last Admin: 07/06/16 09:24 Dose: 650 mg Albuterol Sulfate (Ventolin 0.083% Nebulizer Soln -) 1 amp NEB Q6H PRN PRN Reason: SHORT OF BREATH/WHEEZING Last Admin: 07/06/16 11:44 Dose: 1 amp Atorvastatin Calcium (Lipitor -) 10 mg PO HS [facility] Last Admin: 07/05/16 21:26 Dose: 10 mg Budesonide/Formoterol Fumarate (Symbicort 80/4.5mcg -) 2 puff IH BID [facility] Last Admin: 07/06/16 09:19 Dose: 2 inh Calcium Carbonate/Cholecalciferol (Os-Misha 500+D -) 1 tab PO DAILY [facility] Last Admin: 07/06/16 09:18 Dose: 1 tab Diltiazem HCl (Cardizem Cd -) 180 mg PO DAILY [facility] Last Admin: 07/06/16 09:18 Dose: 180 mg Latanoprost (Xalatan 0.005% Eye Drops -) 1 drop OU HS [facility] Last Admin: 07/05/16 21:24 Dose: 1 drop Montelukast Sodium (Singulair -) 10 mg PO HS [facility] Last Admin: 07/05/16 21:26 Dose: 10 mg Multivitamins/Minerals/Vitamin C (Tab-A-Vit -) 1 tab PO DAILY [facility] Last Admin: 07/06/16 09:19 Dose: 1 tab Pantoprazole Sodium (Protonix -) 40 mg PO BID [facility] Last Admin: 07/06/16 09:19 Dose: 40 mg Polysaccharide Iron Complex (Niferex-150 -) 150 mg PO DAILY [facility] Last Admin: 07/06/16 09:18 Dose: 150 mg Potassium Chloride (K-Dur -) 20 meq PO DAILY [facility] Last Admin: 07/06/16 09:18 Dose: 20 meq Sodium Chloride ([place] Nasal [place] -) 2 spray NS TID [facility] Last Admin: 07/06/16 13:42 Dose: 2 spray Tiotropium [place] (Spiriva -) 1 puff IH DAILY [facility] Last Admin: 07/06/16 09:19 Dose: 1 puff - Objective Vital Signs: Vital Signs Temperature 98.4 F 07/06/16 10:00 Pulse Rate 98 H 07/06/16 11:49 Respiratory Rate 18 07/06/16 10:00 Blood Pressure 132/71 07/06/16 10:00 O2 Sat by Pulse Oximetry (%) 99 07/06/16 11:49 Constitutional: Yes: Well Nourished, No Distress, Calm Cardiovascular: Yes: Regular Rate and Rhythm. No: Gallop, Murmur, Rub Respiratory: Yes: Regular, CTA Bilaterally, On Nasal O2. No: Rales, Rhonchi, Wheezes Gastrointestinal: Yes: Normal Bowel Sounds, Soft. No: Distention, Tenderness Extremities: Yes: WNL Edema: Yes Edema: LLE: Trace, RLE: Trace Labs: CBC, BMP 07/06/16 06:05 07/06/16 06:05 INR, PTT INR 0.96 (0.82-1.09) 06/30/16 15:00 Problem List - Problems (1) Anemia Code(s): D64.9 - ANEMIA, UNSPECIFIED (2) SOB (shortness of breath) Code(s): R06.02 - SHORTNESS OF BREATH (3) CHF (congestive heart failure) Code(s): I50.9 - HEART FAILURE, UNSPECIFIED (4) Hypertension Code(s): I10 - ESSENTIAL (PRIMARY) HYPERTENSION (5) COPD (chronic obstructive pulmonary disease) Code(s): J44.9 - CHRONIC OBSTRUCTIVE PULMONARY DISEASE, UNSPECIFIED Assessment/Plan (1) Anemia Assessment/Plan: -s/p 3 units with good response -much improved -recheck in am Code(s): D64.9 - ANEMIA, UNSPECIFIED (2) SOB (shortness of breath) Assessment/Plan: -patient says she is feeling baseline -suspect at baseline Code(s): R06.02 - SHORTNESS OF BREATH (3) CHF (congestive heart failure) Assessment/Plan: -cardiology consult and note reviewed -well diuresed -holding torsemide secondary to elevated BUN and bicarb Code(s): I50.9 - HEART FAILURE, UNSPECIFIED (4) Hypertension Assessment/Plan: -continue diltiazem -monitor Code(s): I10 - ESSENTIAL (PRIMARY) HYPERTENSION (5) COPD (chronic obstructive pulmonary disease) Assessment/Plan: -pulmonary following Code(s): J44.9 - CHRONIC OBSTRUCTIVE PULMONARY DISEASE, UNSPECIFIED (6) Hypokalemia -secondary to torsemide -replete Dispo -possible discharge tomorrow
--- NOTE | 2016-07-06 15:03 | PN ---
Physical Exam: SUBJECTIVE: Patient seen and examined patient resting in bed comfortably NAD. No acute events overnight. Afebrile and hemodynamically stable. States she feels less SOB and LE edema had resolved. respiratory status is still below baseline. She ambulated with walker to bathroom with less exertional SOB. Denies f/c, chest pain, dizziness, cough, abd pain, diarrhea, dysuria. OBJECTIVE: Vital Signs Period Temp Pulse Resp BP Sys/Ellis Pulse Ox Last 24 Hr 97.9 F-98.4 F 80-99 18-20 120-132/71-88 99-99 GENERAL: Awake, alert, and fully oriented, in no acute distress. HEAD: Normal with no signs of trauma. EYES: Pupils equal, round and reactive to light, extraocular movements intact, sclera anicteric, conjunctiva clear. EARS, NOSE, THROAT: Moist mucous membranes. NECK: supple without JVD LUNGS: no wheezes, better air movement HEART: Regular rate and rhythm, normal S1 and S2 ABDOMEN: Soft, nontender, not distended, normoactive bowel sounds, no masses. MUSCULOSKELETAL: No CVA tenderness. UPPER EXTREMITIES: 2+ pulses, No peripheral edema. LOWER EXTREMITIES: 2+ pulses, warm, well-perfused. 1+ peripheral edema. NEUROLOGICAL: Cranial nerves II-XII grossly intact. Normal speech. PSYCHIATRIC: Cooperative. Good eye contact. A SKIN: Warm, dry Laboratory Results - last 24 hr 07/06/16 07/06/16 06:05 06:05 WBC 10.8 H RBC 4.64 Hgb 10.3 L Hct 32.9 MCV 70.9 L MCHC 31.2 L RDW 32.1 H Plt Count 226 D MPV 8.5 Sodium 136 Potassium 2.7 L* D Chloride 79 L D Carbon Dioxide 48 H Anion Gap 9 BUN 26 H D Creatinine 0.8 Random Glucose 78 Calcium 9.1 Active Medications Generic Name Dose Route Start Last Admin Trade Name Freq PRN Reason Stop Dose Admin Acetaminophen 650 mg 07/02/16 11:24 07/06/16 09:24 Tylenol - PO 650 mg Q6H PRN Administration FEVER OR PAIN Albuterol Sulfate 1 amp 07/05/16 20:11 07/06/16 11:44 Ventolin 0.083% Nebulizer Soln - NEB 1 amp Q6H PRN Administration SHORT OF BREATH/WHEEZING Atorvastatin Calcium 10 mg 06/30/16 22:00 07/05/16 21:26 Lipitor - PO 10 mg HS JEANNA Administration Budesonide/Formoterol Fumarate 2 puff 06/30/16 22:00 07/06/16 09:19 Symbicort 80/4.5mcg - IH 2 inh BID JEANNA Administration Calcium Carbonate/Cholecalciferol 1 tab 07/01/16 10:00 07/06/16 09:18 Os-Misha 500+D - PO 1 tab DAILY JEANNA Administration Diltiazem HCl 180 mg 07/04/16 10:00 07/06/16 09:18 Cardizem Cd - PO 180 mg DAILY JEANNA Administration Latanoprost 1 drop 06/30/16 22:00 07/05/16 21:24 Xalatan 0.005% Eye Drops - OU 1 drop HS JEANNA Administration Montelukast Sodium 10 mg 06/30/16 22:00 07/05/16 21:26 Singulair - PO 10 mg HS JEANNA Administration Multivitamins/Minerals/Vitamin C 1 tab 07/01/16 10:00 07/06/16 09:19 Tab-A-Vit - PO 1 tab DAILY JEANNA Administration Pantoprazole Sodium 40 mg 07/02/16 10:00 07/06/16 09:19 Protonix - PO 40 mg BID JEANNA Administration Polysaccharide Iron Complex 150 mg 07/03/16 10:00 07/06/16 09:18 Niferex-150 - PO 150 mg DAILY JEANNA Administration Potassium Chloride 20 meq 07/01/16 10:00 07/06/16 09:18 K-Dur - PO 20 meq DAILY JEANNA Administration Sodium Chloride 2 spray 06/30/16 22:00 07/06/16 13:42 [place] Nasal [place] - NS 2 spray TID JEANNA Administration Tiotropium [place] 1 puff 07/02/16 10:00 07/06/16 09:19 Spiriva - IH 1 puff DAILY JEANNA Administration ASSESSMENT/PLAN: Acute on chronic hypoxic respiratory failure -likely due to exacerbated severe anemia -symptmatically improved, ambulating to bathroom, below baseline -supplemental O2, now on 2L sat 99% at rest -symbicort, singulair, albuterol -PT COPD -O2 dependant -mild pulmonary HTN -CXR no acute process Severe symptomatic anemia -acute on chronic -Hx upper GIB (bleeding ulcer 1999) -GI consult: likely avm, will scope when respiratory status more stable -hemo consult appreciated: f/u anemia workup -s/p 2.5 U pRBC -monitor h/h (stable hgb 10.3 today) CHF (HFPEF) -cardiology on case -possible exacerbation -now euvolemic HTN -lasix Dispo: We will continue to follow the patient. Thank you for this consultative opportunity. Problem List - Problems (1) Acute on chronic respiratory failure with hypoxemia Code(s): J96.21 - ACUTE AND CHRONIC RESPIRATORY FAILURE WITH HYPOXIA (2) Anemia Code(s): D64.9 - ANEMIA, UNSPECIFIED (3) COPD (chronic obstructive pulmonary disease) Code(s): J44.9 - CHRONIC OBSTRUCTIVE PULMONARY DISEASE, UNSPECIFIED (4) COPD exacerbation Code(s): J44.1 - CHRONIC OBSTRUCTIVE PULMONARY DISEASE W (ACUTE) EXACERBATION (5) SOB (shortness of breath) Code(s): R06.02 - SHORTNESS OF BREATH (6) CHF (congestive heart failure) Code(s): I50.9 - HEART FAILURE, UNSPECIFIED (7) Hypertension Code(s): I10 - ESSENTIAL (PRIMARY) HYPERTENSION (8) GIB (gastrointestinal bleeding) Code(s): K92.2 - GASTROINTESTINAL HEMORRHAGE, UNSPECIFIED Visit type - Emergency Visit Emergency Visit: Yes ED Registration Date: 06/30/16 Care time: The patient presented to the Emergency Department on the above date and was hospitalized for further evaluation of their emergent condition. - New Patient This patient is new to me today: No - Critical Care Critical Care patient: No - Discharge Referral Referred to [facility] No
--- NOTE | 2016-07-06 15:23 | PN ---
Teaching Attending Note Name of Resident: Mary Barber ATTENDING PHYSICIAN STATEMENT I saw and evaluated the patient. I reviewed the resident's note and discussed the case with the resident. I agree with the resident's findings and plan as documented. SUBJECTIVE: Breathing feels a little better today, but not back to baseline. OBJECTIVE: Intake & Output 07/03/16 07/04/16 07/05/16 07/06/16 23:59 23:59 23:59 23:59 Intake Total 750 1400 1450 300 Balance 750 1400 1450 300 Weight 121 lb 12.8 oz 122 lb 7 oz 117 lb 14.4 oz 115 lb 2 oz Last Vital Signs Temp Pulse Resp BP Pulse Ox 97.9 F 99 H 20 132/71 99 07/06/16 14:00 07/06/16 14:00 07/06/16 14:00 07/06/16 10:00 07/06/16 11:49 Active Medications Acetaminophen (Tylenol -) 650 mg PO Q6H PRN PRN Reason: FEVER OR PAIN Last Admin: 07/06/16 09:24 Dose: 650 mg Albuterol Sulfate (Ventolin 0.083% Nebulizer Soln -) 1 amp NEB Q6H PRN PRN Reason: SHORT OF BREATH/WHEEZING Last Admin: 07/06/16 11:44 Dose: 1 amp Atorvastatin Calcium (Lipitor -) 10 mg PO HS [facility] Last Admin: 07/05/16 21:26 Dose: 10 mg Budesonide/Formoterol Fumarate (Symbicort 80/4.5mcg -) 2 puff IH BID [facility] Last Admin: 07/06/16 09:19 Dose: 2 inh Calcium Carbonate/Cholecalciferol (Os-Misha 500+D -) 1 tab PO DAILY [facility] Last Admin: 07/06/16 09:18 Dose: 1 tab Diltiazem HCl (Cardizem Cd -) 180 mg PO DAILY [facility] Last Admin: 07/06/16 09:18 Dose: 180 mg Latanoprost (Xalatan 0.005% Eye Drops -) 1 drop OU [facility] Last Admin: 07/05/16 21:24 Dose: 1 drop Montelukast Sodium (Singulair -) 10 mg PO HS [facility] Last Admin: 07/05/16 21:26 Dose: 10 mg Multivitamins/Minerals/Vitamin C (Tab-A-Vit -) 1 tab PO DAILY [facility] Last Admin: 07/06/16 09:19 Dose: 1 tab Pantoprazole Sodium (Protonix -) 40 mg PO BID [facility] Last Admin: 07/06/16 09:19 Dose: 40 mg Polysaccharide Iron Complex (Niferex-150 -) 150 mg PO DAILY [facility] Last Admin: 07/06/16 09:18 Dose: 150 mg Potassium Chloride (K-Dur -) 20 meq PO DAILY [facility] Last Admin: 07/06/16 09:18 Dose: 20 meq Sodium Chloride ([place] Nasal [place] -) 2 spray NS TID [facility] Last Admin: 07/06/16 13:42 Dose: 2 spray Tiotropium [place] (Spiriva -) 1 puff IH DAILY [facility] Last Admin: 07/06/16 09:19 Dose: 1 puff GENERAL: Awake, alert, NAD HEAD: Normal with no signs of trauma. EYES: sclera anicteric, conjunctiva clear. EARS, NOSE, THROAT: Moist mucous membranes. NECK: supple without JVD LUNGS: no wheezes, few scattered rhonchi HEART: Regular rate and rhythm, normal S1 and S2 ABDOMEN: Soft, nontender, not distended, normoactive bowel sounds, no masses. MUSCULOSKELETAL: No CVA tenderness. UPPER EXTREMITIES: 2+ pulses, No peripheral edema. LOWER EXTREMITIES: 2+ pulses, warm, well-perfused. 1+ peripheral edema. NEUROLOGICAL: non-focal PSYCHIATRIC: Cooperative. SKIN: Warm, dry Laboratory Results - last 24 hr 07/06/16 07/06/16 06:05 06:05 WBC 10.8 H RBC 4.64 Hgb 10.3 L Hct 32.9 MCV 70.9 L MCHC 31.2 L RDW 32.1 H Plt Count 226 D MPV 8.5 Sodium 136 Potassium 2.7 L* D Chloride 79 L D Carbon Dioxide 48 H Anion Gap 9 BUN 26 H D Creatinine 0.8 Random Glucose 78 Calcium 9.1 Problem List - Problems (1) Acute on chronic respiratory failure with hypoxemia Code(s): J96.21 - ACUTE AND CHRONIC RESPIRATORY FAILURE WITH HYPOXIA (2) Anemia Code(s): D64.9 - ANEMIA, UNSPECIFIED (3) COPD (chronic obstructive pulmonary disease) Code(s): J44.9 - CHRONIC OBSTRUCTIVE PULMONARY DISEASE, UNSPECIFIED (4) COPD exacerbation Code(s): J44.1 - CHRONIC OBSTRUCTIVE PULMONARY DISEASE W (ACUTE) EXACERBATION (5) SOB (shortness of breath) Code(s): R06.02 - SHORTNESS OF BREATH (6) CHF (congestive heart failure) Code(s): I50.9 - HEART FAILURE, UNSPECIFIED (7) Hypertension Code(s): I10 - ESSENTIAL (PRIMARY) HYPERTENSION (8) GIB (gastrointestinal bleeding) Code(s): K92.2 - GASTROINTESTINAL HEMORRHAGE, UNSPECIFIED ASSESSMENT/PLAN: Acute on chronic hypoxic respiratory failure Severe symptomatic anemia Symbicort Spiriva O2 as needed Lasix Nasal spray PT Dr Carranza
[2016-07-06] MEDS: MONTELUKAST NA 10 MG TABLET PO SCH (21:30)
[2016-07-06] MEDS: LATANOPROST 0.005% OPHTH SOLN 2.5ML BOTTLE OU SCH (21:30)
[2016-07-06] MEDS: ATORVASTATIN CA 10 MG TABLET (FP) PO SCH (21:30)
--- NOTE | 2016-07-06 21:39 | PN ---
Progress Note (short form) - Note Progress Note: Paient seen and examined feels ok afvss Oropharynx: No thrush, Cor: RSR, No murmurs, No gallops Lungs:decreased at bases Abd: Soft, Normal bowel sounds, No organomegaly Ext:No significant edema LAbs/meds reviewed A/P 75 y/o patient with History of ulcer disease diagnosed 3 years ago when patient underwent last EGD and colonoscopy. Treated medically with PPI's. Presents now with hypochromic, microcytic anemia. Fe++ studies s/o iron deficiency gi teams inputnoted in niferex 150mg daily continue vit. c
[2016-07-07] MEDS: SODIUM CHLORIDE NASAL SPRAY 44 ML BOTTLE NS SCH ×2 (06:04→16:12)
[2016-07-07 07:26] LABS: MCH 22.3 pg (25.7-33.7); MCHC 31.7 g/dl (32.0-36.0); MEAN CELL VOLUME 70.5 fl (80-96); MEAN PLT VOLUME 8.5 fl (7.5-11.1); PLATELET COUNT 251 K/MM3 (134-434); RDW 31.7 % (11.6-15.6); WHITE BLOOD COUNT 9.9 K/mm3 (4.0-10.0)
[2016-07-07 07:59] LABS: CALCIUM 8.4 mg/dL (8.5-10.1); CREATININE 0.6 mg/dL (0.55-1.02); MAGNESIUM 1.9 mg/dL (1.8-2.4); PHOSPHOROUS 3.3 mg/dL (2.5-4.9)
[2016-07-07] MEDS ORDERED: PT OWN MED DRAWER 7, Y5N ONE (10:14)
[2016-07-07] MEDS: CALCIUM 500MG/VIT-D 200 UNITS COMBO TABLET (FP) PO SCH (10:17)
[2016-07-07] MEDS: IRON POLYSACCHARIDES 150 MG CAPSULE PO SCH (10:17)
[2016-07-07] MEDS: POTASSIUM CHLORIDE TABS 20 MEQ TABLET.ER (FP) PO SCH (10:17)
[2016-07-07] MEDS: PANTOPRAZOLE 40 MG TABLET (FP) PO SCH (10:17)
[2016-07-07] MEDS: MULTIVITAMINS (DAILY MVI) TABLET (FP) PO SCH (10:19)
[2016-07-07] MEDS: BUDESONIDE/FORMETEROL FUMARATE 80/4.5 mcg INHALER IH SCH (10:19)
[2016-07-07] MEDS: TIOTROPIUM BROMIDE 18 MCG/INH (DEVICE W/ 30 CAPSULES) IH SCH (10:19)
[2016-07-07] MEDS: ALBUTEROL SO4 0.083% IH SOL 2.5 MG/3 ML VIAL.NEB. NEB PRN (10:50)
[2016-07-07 11:33] LABS: ANISOCYTOSIS 1+; HYPOCHROMIA 3+; MICROCYTOSIS 1+; TEAR DROP CELLS RARE
--- NOTE | 2016-07-07 12:18 | PN ---
Progress Note (short form) - Note Progress Note: OOB to chair. Overall breathing feels better. No CP. Mild, dry cough. Intake & Output 07/04/16 07/05/16 07/06/16 07/07/16 23:59 23:59 23:59 23:59 Intake Total 1400 1450 1100 100 Balance 1400 1450 1100 100 Weight 122 lb 7 oz 117 lb 14.4 oz 115 lb 2 oz 116 lb 1 oz Last Vital Signs Temp Pulse Resp BP Pulse Ox 98.7 F 92 H 18 120/76 95 07/06/16 22:00 07/07/16 11:18 07/06/16 22:00 07/06/16 22:00 07/07/16 11:18 Active Medications Acetaminophen (Tylenol -) 650 mg PO Q6H PRN PRN Reason: FEVER OR PAIN Last Admin: 07/06/16 09:24 Dose: 650 mg Albuterol Sulfate (Ventolin 0.083% Nebulizer Soln -) 1 amp NEB Q6H PRN PRN Reason: SHORT OF BREATH/WHEEZING Last Admin: 07/07/16 10:50 Dose: 1 amp Atorvastatin Calcium (Lipitor -) 10 mg PO HS [facility] Last Admin: 07/06/16 21:30 Dose: 10 mg Budesonide/Formoterol Fumarate (Symbicort 80/4.5mcg -) 2 puff IH BID [facility] Last Admin: 07/07/16 10:19 Dose: 2 inh Calcium Carbonate/Cholecalciferol (Os-Misha 500+D -) 1 tab PO DAILY [facility] Last Admin: 07/07/16 10:17 Dose: 1 tab Diltiazem HCl (Cardizem Cd -) 180 mg PO DAILY [facility] Last Admin: 07/07/16 10:17 Dose: 180 mg Latanoprost (Xalatan 0.005% Eye Drops -) 1 drop OU HS [facility] Last Admin: 07/06/16 21:30 Dose: 1 drop Montelukast Sodium (Singulair -) 10 mg PO HS [facility] Last Admin: 07/06/16 21:30 Dose: 10 mg Multivitamins/Minerals/Vitamin C (Tab-A-Vit -) 1 tab PO DAILY [facility] Last Admin: 07/07/16 10:19 Dose: 1 tab Pantoprazole Sodium (Protonix -) 40 mg PO BID [facility] Last Admin: 07/07/16 10:17 Dose: 40 mg Polysaccharide Iron Complex (Niferex-150 -) 150 mg PO DAILY [facility] Last Admin: 07/07/16 10:17 Dose: 150 mg Potassium Chloride (K-Dur -) 20 meq PO DAILY [facility] Last Admin: 07/07/16 10:17 Dose: 20 meq Sodium Chloride ([place] Nasal [place] -) 2 spray NS TID [facility] Last Admin: 07/07/16 06:04 Dose: 2 spray Tiotropium [place] (Spiriva -) 1 puff IH DAILY [facility] Last Admin: 07/07/16 10:19 Dose: 1 puff GENERAL: Awake, alert, NAD HEAD: Normal with no signs of trauma. EYES: sclera anicteric, conjunctiva clear. EARS, NOSE, THROAT: Moist mucous membranes. NECK: supple without JVD LUNGS: minimal expiratory wheeze, few scattered rhonchi HEART: Regular rate and rhythm, normal S1 and S2 ABDOMEN: Soft, nontender, not distended, normoactive bowel sounds, no masses. MUSCULOSKELETAL: No CVA tenderness. UPPER EXTREMITIES: 2+ pulses, No peripheral edema. LOWER EXTREMITIES: 2+ pulses, warm, well-perfused. 1+ peripheral edema. NEUROLOGICAL: non-focal PSYCHIATRIC: Cooperative. SKIN: Warm, dry Laboratory Results - last 24 hr 07/07/16 07/07/16 06:35 06:35 WBC 9.9 RBC 4.54 Hgb 10.2 L Hct 32.1 L MCV 70.5 L MCHC 31.7 L RDW 31.7 H Plt Count 251 MPV 8.5 Neutrophils % 72.0 Lymphocytes % 13.0 D Monocytes % 8.0 Eosinophils % 7.0 H D Basophils % Product Safety Manager Differential Comment Manual diff done Hypochromic-Microcytic 3+ Basophilic Stippling Rare Anisocytosis 1+ Microcytosis 1+ Tear Drop Cells Rare Morphology Comment Slide scanned Sodium 142 Potassium 4.0 D Chloride 104 D Carbon Dioxide 29 D Anion Gap 9 BUN 12 D Creatinine 0.6 D Random Glucose 104 D Calcium 8.4 L Phosphorus 3.3 Magnesium 1.9 D Problem List - Problems (1) Acute on chronic respiratory failure with hypoxemia Code(s): J96.21 - ACUTE AND CHRONIC RESPIRATORY FAILURE WITH HYPOXIA (2) Anemia Code(s): D64.9 - ANEMIA, UNSPECIFIED (3) COPD (chronic obstructive pulmonary disease) Code(s): J44.9 - CHRONIC OBSTRUCTIVE PULMONARY DISEASE, UNSPECIFIED (4) COPD exacerbation Code(s): J44.1 - CHRONIC OBSTRUCTIVE PULMONARY DISEASE W (ACUTE) EXACERBATION (5) SOB (shortness of breath) Code(s): R06.02 - SHORTNESS OF BREATH (6) CHF (congestive heart failure) Code(s): I50.9 - HEART FAILURE, UNSPECIFIED (7) Hypertension Code(s): I10 - ESSENTIAL (PRIMARY) HYPERTENSION (8) GIB (gastrointestinal bleeding) Code(s): K92.2 - GASTROINTESTINAL HEMORRHAGE, UNSPECIFIED ASSESSMENT/PLAN: Acute on chronic hypoxic respiratory failure Severe symptomatic anemia Symbicort Spiriva O2 as needed (patient uses 2 L NC at home) Lasix Nasal spray PT D/C planning Dr Carranza
--- NOTE | 2016-07-07 12:39 | PN ---
Progress Note (short form) - Note Progress Note: Chief Complaint: sob, chf History of Present Illness: swelling resolved; sob persists but slightly better; longstanding chronic dry cough persists no cp, palpit Current Medications Acetaminophen (Tylenol -) 650 mg PO Q6H PRN PRN Reason: FEVER OR PAIN Last Admin: 07/06/16 09:24 Dose: 650 mg Albuterol Sulfate (Ventolin 0.083% Nebulizer Soln -) 1 amp NEB Q6H PRN PRN Reason: SHORT OF BREATH/WHEEZING Last Admin: 07/07/16 10:50 Dose: 1 amp Atorvastatin Calcium (Lipitor -) 10 mg PO HS [facility] Last Admin: 07/06/16 21:30 Dose: 10 mg Budesonide/Formoterol Fumarate (Symbicort 80/4.5mcg -) 2 puff IH BID [facility] Last Admin: 07/07/16 10:19 Dose: 2 inh Calcium Carbonate/Cholecalciferol (Os-Misha 500+D -) 1 tab PO DAILY [facility] Last Admin: 07/07/16 10:17 Dose: 1 tab Diltiazem HCl (Cardizem Cd -) 180 mg PO DAILY [facility] Last Admin: 07/07/16 10:17 Dose: 180 mg Latanoprost (Xalatan 0.005% Eye Drops -) 1 drop OU HS [facility] Last Admin: 07/06/16 21:30 Dose: 1 drop Montelukast Sodium (Singulair -) 10 mg PO HS [facility] Last Admin: 07/06/16 21:30 Dose: 10 mg Multivitamins/Minerals/Vitamin C (Tab-A-Vit -) 1 tab PO DAILY [facility] Last Admin: 07/07/16 10:19 Dose: 1 tab Pantoprazole Sodium (Protonix -) 40 mg PO BID [facility] Last Admin: 07/07/16 10:17 Dose: 40 mg Polysaccharide Iron Complex (Niferex-150 -) 150 mg PO DAILY [facility] Last Admin: 07/07/16 10:17 Dose: 150 mg Potassium Chloride (K-Dur -) 20 meq PO DAILY [facility] Last Admin: 07/07/16 10:17 Dose: 20 meq Sodium Chloride ([place] Nasal [place] -) 2 spray NS TID [facility] Last Admin: 07/07/16 06:04 Dose: 2 spray Tiotropium [place] (Spiriva -) 1 puff IH DAILY [facility] Last Admin: 07/07/16 10:19 Dose: 1 puff Vital Signs - 24 hr 07/06/16 07/06/16 07/06/16 14:00 18:00 21:00 Temperature 97.9 F 98.1 F Pulse Rate 99 H 98 H Respiratory 20 20 Rate Blood Pressure 118/82 O2 Sat by Pulse 97 Oximetry (%) 07/06/16 07/07/16 22:00 11:18 Temperature 98.7 F Pulse Rate 90 92 H Respiratory 18 Rate Blood Pressure 120/76 O2 Sat by Pulse 95 Oximetry (%) Intake & Output 07/05/16 07/06/16 07/07/16 07/08/16 07:59 07:59 07:59 07:59 Intake Total 1300 1450 1200 Balance 1300 1450 1200 Weight 117 lb 14.4 oz 115 lb 2 oz 116 lb 1 oz Constitutional: Yes: Well Nourished, No Distress, Calm Cardiovascular: Yes: Regular Rate and Rhythm, S1, S2. No: Gallop, Murmur Respiratory: Yes: Regular, trace wheezes. No: Accessory Muscle Use, Rales, Wheezes Extremities: No: Cold Edema: No Neurological: Yes: Alert, Oriented Psychiatric: No: Agitated Labs: CBC, BMP 07/07/16 06:35 07/07/16 06:35 Assessment/Plan Echo 08/16: nl LV/EF; RV tds; nl LA; valves WNL; RVSP 40-50 Assessment/Plan acute diast chf, a.e. copd vs viral bronchitis: -BNP 600s, similar to when was here with probable chf 08/16 -? sx's due to worsening anemia with hgb 6 -CXR with no sig chf -leg swelling is signif incr'd lately (? abdomen as well per pt), raising suspicion for chf though cannot appreciate JVD on exam -has been complying with torsemide 40 bid at home she says -has been getting lasix 80 iv bid and le edema improved and cr stable thus far. -no suspicion of ACS, enzymes neg x3 and ecg unremarkable -07/05: appears euvolemic, change back to po torsemide 40 bid and stop metolazone. -07/06: wt down from 124 to 115 lbs here, bicarb and bun up today, K very low (2.7 ) which is likely metolazone effect--will hold torsemide tonight dose, reassess labs in am - /7: labs improved, will resume outpatient torsemide 40 mg bid. Needs daily bmp -ongoing sob is likely copd sx vs bronchitis--per pulm mild pulm HTN: -estimated RVSP 40-50 on recent echo, RV not well seen on that report -? sec to LV diast chf vs ? hypoxic chronic lung dz (on home O2 for copd)-- these 2 dx's are extremely likely to represent the etiology of her pulm htn and tx directed at both (i.e. diuretics and supplemental O2/airways tx) is all that is indicated here COPD, ? with a.e.: -+ wheezing and mild URI sx's -defer to dr taylor, pul regarding airways-specific tx's HTN: -controlled -decreased dilt from 180 bid to 180 qd as her bp is on low side and ccb may be worsening le edema Fe-def anemia, acute on chronic: -baseline hgb runs 8s-9s - 6's on admit, likely symptomatic (sob) -hgb back to baseline after prbcs -seen by GI--recommending outpt scopes -Pt has no cardiac contraindications (intermediate risk) to EGD/FOC, currently well-compensated chf status
[2016-07-07] MEDS ORDERED: TORSEMIDE 20 MG TABLET (FP) PO SCH (14:00)
--- NOTE | 2016-07-07 15:39 | DS ---
Physical Examination Vital Signs: Vital Signs Temperature 98.3 F 07/07/16 14:00 Pulse Rate 70 07/07/16 14:00 Respiratory Rate 18 07/07/16 14:00 Blood Pressure 120/76 07/06/16 22:00 O2 Sat by Pulse Oximetry (%) 95 07/07/16 11:18 Constitutional: Yes: Well Nourished, No Distress, Calm Cardiovascular: Yes: Regular Rate and Rhythm. No: Gallop, Murmur, Rub Respiratory: Yes: Regular, On Nasal O2, Wheezes. No: Rales, Rhonchi Gastrointestinal: Yes: Normal Bowel Sounds, Soft. No: Distention, Tenderness Extremities: Yes: WNL Edema: No Labs: CBC, BMP 07/07/16 06:35 07/07/16 06:35 Discharge Summary Reason For Visit: SOB; ANEMIA; OBSTRUCTIVE CHRONIC BRONCHITIS Current Active Problems Acute on chronic respiratory failure with hypoxemia (Acute) Anemia (Acute) COPD (chronic obstructive pulmonary disease) (Acute) COPD exacerbation (Acute) GIB (gastrointestinal bleeding) (Acute) SOB (shortness of breath) (Acute) Hospital Course: (1) Anemia Code(s): D64.9 - ANEMIA, UNSPECIFIED (2) SOB (shortness of breath) Code(s): R06.02 - SHORTNESS OF BREATH (3) CHF (congestive heart failure) Code(s): I50.9 - HEART FAILURE, UNSPECIFIED (4) Hypertension Code(s): I10 - ESSENTIAL (PRIMARY) HYPERTENSION (5) COPD (chronic obstructive pulmonary disease) Code(s): J44.9 - CHRONIC OBSTRUCTIVE PULMONARY DISEASE, UNSPECIFIED (6) GORDO Ms Hadley is a very pleasant 75 year old female who comes in with anemia and found to have a GI bleed. She was admitted to the hospital and transfused. She was seen by GI and deferred scopes to the outpatient setting secondary to optimization of CHF and COPD. She was seen by cardiology and diuresed. She was seen by pulmonary and followed. Because she was not being scoped in the hospital , monitored over the weekend to make sure bleeding has stopped. Her H/H is stable. She was seen by hematology and started on niferex. She had GORDO secondary to overdiuresis, lasix was held and she normalized. She is safe to start back on her home torsemide. She was instructed to have a bmp check on or Wednesday of this week and have follow up next week with pulmonary and cardiology for clearance for scopes. 35 minutes spent in preparation of this discharge Condition: Good - Instructions Diet, Activity, Other Instructions: Resume previous diet and activity. Have BMP drawn on or Wednesday of this week to be followed up by Dr Basilio. Follow up with Dr Basilio and Dr Patel next week for approval for EGD/colonoscopy. Referrals: Clark Patel MD [Staff Physician] - Kaleb Ahumada MD [Primary Care Provider] - Anthony Basilio MD [Staff Physician] - Duane Vargas MD [Staff Physician] - Disposition: HOME - Home Medications Comprehensive Discharge Medication List: Ambulatory Orders Albuterol Sulfate [Proair Hfa -] 1 - 2 inh PO PRN PRN 10/15/11 Fluticasone/Salmeterol [Advair 250-50 Diskus] 1 each IH BID 10/15/11 Tiotropium [place] [Spiriva] 18 mcg IH DAILY 10/15/11 Montelukast Na [Singulair -] 10 mg PO HS #0 tablet 10/20/11 Multivitamins [Multivit ([facility] Formulary)] 1 udtab PO DAILY #0 tab 10/20/11 Sodium Chloride Nasal [place] [[place] Nasal [place] -] 2 spray NS TID #0 spraybtl 10/20/11 Ferrous Sulfate [Feosol] 325 mg PO DAILY 01/18/12 Calcium Carbonate/Vitamin D3 [Calcium 600-Vit D3 200 Tablet] 1 each PO DAILY 10/13 Docosahexanoic Acid/Epa [Fish Oil Softgel] 1 each PO DAILY 11/05/12 Potassium Chloride [K-Dur] 20 meq PO DAILY #0 tab.er.prt 11/05/12 Alendronate Sodium [Fosamax] 35 mg PO KELLER 09/01/15 Atorvastatin Ca [Lipitor] 10 mg PO HS 09/01/15 Latanoprost 0.005% Eye Drops [Xalatan 0.005% Eye Drops -] 1 drop OU HS 09/01/15 Torsemide 40 mg PO BID #120 tablet 09/02/15 Diltiazem Cd [Cardizem Cd -] 180 mg PO BID 06/30/16 Diphenhydramine HCl [Benadryl Capsule -] 25 mg PO Q6H PRN 06/30/16 Pantoprazole Sodium 40 mg PO DAILY 06/30/16 Iron Polysaccharides [Niferex-150 -] 150 mg PO DAILY #30 capsule 07/07/16
[2016-07-07 19:20] VITALS: BP 117/64; PULSE 83; TEMP 97.3
== END 2016-07-07 20:44 | disposition home or self-care (01) | DRG 811 ==
LOC: JER 13:07 → JERBED 15:27 → J6S 20:40
PROVIDERS: ADMIT Internal Medicine; ATTEND Internal Medicine
PROC: 30233N1 Transfusion of Nonautologous Red Blood Cells into Peripheral Vein, Percutaneous Approach (ICD-10-PCS; 2016-06-30)
PROC: 0HBRXZZ Excision of Toe Nail, External Approach (ICD-10-PCS; principal; 2016-07-06)
PROC: 0HBRXZZ Excision of Toe Nail, External Approach (ICD-10-PCS; 2016-07-06)
PROC: 0HBRXZZ Excision of Toe Nail, External Approach (ICD-10-PCS; 2016-07-06)
PROC: 0HBRXZZ Excision of Toe Nail, External Approach (ICD-10-PCS; 2016-07-06)
PROC: 0HBRXZZ Excision of Toe Nail, External Approach (ICD-10-PCS; 2016-07-06)
PROC: 0HBRXZZ Excision of Toe Nail, External Approach (ICD-10-PCS; 2016-07-06)
PROC: 0HBRXZZ Excision of Toe Nail, External Approach (ICD-10-PCS; 2016-07-06)
PROC: 0HBRXZZ Excision of Toe Nail, External Approach (ICD-10-PCS; 2016-07-06)
PROC: 0HBRXZZ Excision of Toe Nail, External Approach (ICD-10-PCS; 2016-07-06)
PROC: 0HBRXZZ Excision of Toe Nail, External Approach (ICD-10-PCS; 2016-07-06)
DX: D50.0 Iron deficiency anemia secondary to blood loss (chronic) (principal); J96.21 Acute and chronic respiratory failure with hypoxia; I50.31 Acute diastolic (congestive) heart failure; K92.2 Gastrointestinal hemorrhage, unspecified; B48.8 Other specified mycoses; J44.1 Chronic obstructive pulmonary disease with (acute) exacerbation; N17.9 Acute kidney failure, unspecified; E78.5 Hyperlipidemia, unspecified; E87.6 Hypokalemia; K57.90 Diverticulosis of intestine, part unspecified, without perforation or abscess without bleeding; I11.0 Hypertensive heart disease with heart failure; Z87.891 Personal history of nicotine dependence; Z99.81 Dependence on supplemental oxygen; Z86.718 Personal history of other venous thrombosis and embolism
CPT/HCPCS: 36415; 36430; 71010-TC; 76700-TC; 80048; 80053; 81003; 82272; 82550; 82607; 82728; 82746; 83010; 83021; 83540; 83550; 83615; 83735; 83880; 84100; 84443; 84466; 84484; 85025; 85027; 85044; 85610; 85660; 85730; 86850; 86900; 86901; 86922; 87254; 87804; 93005; 93010; 94640; 99284-25; P9038; P9058

== ENCOUNTER 2017-04-26 17:51 | Inpatient (IN) | payer OTHER ==
--- NOTE | 2017-04-26 18:06 | PDOC ---
History of Present Illness - General Chief Complaint: Respiratory Stated Complaint: DIFF BREATHING Time Seen by Provider: 04/26/17 18:04 Past History - Past Medical History Allergies/Adverse Reactions: Allergies Allergy/AdvReac Type Severity Reaction Status Date / Time No Known Allergies Allergy Verified 06/30/16 13:14 Home Medications: Ambulatory Orders Albuterol Sulfate [Proair Hfa -] 1 - 2 inh PO PRN PRN 10/15/11 Fluticasone/Salmeterol [Advair 250-50 Diskus] 1 each IH BID 10/15/11 Tiotropium [place] [Spiriva] 18 mcg IH DAILY 10/15/11 Montelukast Na [Singulair -] 10 mg PO HS #0 tablet 10/20/11 Multivitamins [Multivit ([facility] Formulary)] 1 udtab PO DAILY #0 tab 10/20/11 Sodium Chloride Nasal [place] [[place] Nasal [place] -] 2 spray NS TID #0 spraybtl 10/20/11 Ferrous Sulfate [Feosol] 325 mg PO DAILY 01/18/12 Calcium Carbonate/Vitamin D3 [Calcium 600-Vit D3 200 Tablet] 1 each PO DAILY 10/13 Docosahexanoic Acid/Epa [Fish Oil Softgel] 1 each PO DAILY 11/05/12 Potassium Chloride [K-Dur] 20 meq PO DAILY #0 tab.er.prt 11/05/12 Alendronate Sodium [Fosamax] 35 mg PO KELLER 09/01/15 Atorvastatin Ca [Lipitor] 10 mg PO HS 09/01/15 Latanoprost 0.005% Eye Drops [Xalatan 0.005% Eye Drops -] 1 drop OU HS 09/01/15 Torsemide 40 mg PO BID #120 tablet 09/02/15 Diltiazem Cd [Cardizem Cd -] 180 mg PO BID 06/30/16 Diphenhydramine HCl [Benadryl Capsule -] 25 mg PO Q6H PRN 06/30/16 Pantoprazole Sodium 40 mg PO DAILY 06/30/16 Iron Polysaccharides [Niferex-150 -] 150 mg PO DAILY #30 capsule 07/07/16 Anemia: Yes (BLOOD TRANSFUSION) Asthma: No Cancer: No Cardiac Disorders: No CVA: No COPD: Yes (USES O2 AT HOME 2 LITERS) CHF: No Dementia: No Diabetes: No GI Disorders: Yes Disorders: No HTN: Yes Hypercholesterolemia: Yes Liver Disease: No Seizures: No Thyroid Disease: No - Surgical History Abdominal Surgery: No Appendectomy: No Cardiac Surgery: No Cholecystectomy: No Lung Surgery: No Neurologic Surgery: No Orthopedic Surgery: No - Suicide/Smoking/Psychosocial Hx Smoking Status: Yes Smoking History: Former smoker Have you smoked in the past 12 months: No Number of Cigarettes Smoked Daily: 0 If you are a former smoker, when did you quit?: Over 15 years ago Hx Alcohol Use: No Drug/Substance Use Hx: No Substance Use Type: None Hx Substance Use Treatment: No *DC/Admit/Observation/Transfer - Referrals - Patient Instructions - Post Discharge Activity - Attestations Physician Attestion: 04/26/17 18:04 I, Dr. Mukesh Crabtree, attest that this document has been prepared under my direction and personally reviewed by me in its entirety. I further attest, that it accurately reflects all work, treatment, procedures and medical decision -making performed by me.
[2017-04-26] MEDS ORDERED: morphine CARPU-JECT 8 MG/1 ML DISP.SYRIN ONE ×2 (18:23→22:52)
[2017-04-26] MEDS ORDERED: ONDANSETRON 4 MG/2 ML VIAL ONE (18:24)
[2017-04-26] MEDS ORDERED: ALBUTEROL SO4 2.5/IPRATROPIUM 0.5 INH SOL 3 ML VIAL.NEB. NEB ONE ×2 (18:24)
[2017-04-26] MEDS ORDERED: morphine CARPU-JECT 4 MG/1 ML DISP.SYRIN IVPUSH ONE (18:25)
--- NOTE | 2017-04-26 18:31 | PDOC ---
History of Present Illness - General Chief Complaint: Respiratory Stated Complaint: DIFF BREATHING/fall Time Seen by Provider: 04/26/17 18:04 History Source: Patient Exam Limitations: No Limitations - History of Present Illness Initial Comments: 04/26/17 18:26 Patient was at home, stumbled and fell landing on her left side, has been immobile since that time. "I think I broke my left hip". Patient suffers from severe COPD, has recently completed course of steroids, is getting Fosamax for osteopenia and has had multiple bone issues. Patient denies numbness or tingling to foot, denies head injury, denies any other area of discomfort. However patient suffers from severe shortness of breath and uses multiple medications for respiratory control but states has recently suffered from a cold which is exacerbated her COPD. Occurred: reports: just prior to arrival, this afternoon Severity: reports: severe Pain Location: reports: lower extremity (left hip), pelvis Method of Injury: Yes: fall Loss of Consciousness: no loss of consciousness Associated Symptoms (Fall): abdominal pain Past History - Travel Traveled outside of the country in the last 30 days: No Close contact w/someone who was outside of country & ill: No - Past Medical History Allergies/Adverse Reactions: Allergies Allergy/AdvReac Type Severity Reaction Status Date / Time No Known Allergies Allergy Verified 04/26/17 19:39 Home Medications: Ambulatory Orders Albuterol Sulfate [Proair Hfa -] 1 - 2 inh PO PRN PRN 10/15/11 Fluticasone/Salmeterol [Advair 250-50 Diskus] 1 each IH BID 10/15/11 Tiotropium [place] [Spiriva] 18 mcg IH DAILY 10/15/11 Montelukast Na [Singulair -] 10 mg PO HS #0 tablet 10/20/11 Multivitamins [Multivit ([facility] Formulary)] 1 udtab PO DAILY #0 tab 10/20/11 Ferrous Sulfate [Feosol] 325 mg PO DAILY 01/18/12 Calcium Carbonate/Vitamin D3 [Calcium 600-Vit D3 200 Tablet] 1 each PO DAILY 10/13 Docosahexanoic Acid/Epa [Fish Oil Softgel] 1 each PO DAILY 11/05/12 Potassium Chloride [K-Dur] 20 meq PO DAILY #0 tab.er.prt 11/05/12 Alendronate Sodium [Fosamax] 35 mg PO KELLER 09/01/15 Atorvastatin Ca [Lipitor] 10 mg PO HS 09/01/15 Latanoprost 0.005% Eye Drops [Xalatan 0.005% Eye Drops -] 1 drop OU HS 09/01/15 Torsemide 40 mg PO BID #120 tablet 09/02/15 Diltiazem Cd [Cardizem Cd -] 180 mg PO BID 06/30/16 Diphenhydramine HCl [Benadryl Capsule -] 25 mg PO Q6H PRN 06/30/16 Pantoprazole Sodium 40 mg PO DAILY 06/30/16 Azithromycin 250 mg PO DAILY 04/26/17 Anemia: Yes (BLOOD TRANSFUSION) Asthma: No Cancer: No Cardiac Disorders: No CVA: No COPD: Yes (USES O2 AT HOME 2 LITERS) CHF: No Dementia: No Diabetes: No GI Disorders: Yes Disorders: No HTN: Yes Hypercholesterolemia: Yes Liver Disease: No Seizures: No Thyroid Disease: No - Surgical History Abdominal Surgery: No Appendectomy: No Cardiac Surgery: No Cholecystectomy: No Lung Surgery: No Neurologic Surgery: No Orthopedic Surgery: No - Suicide/Smoking/Psychosocial Hx Smoking Status: Yes Smoking History: Former smoker Have you smoked in the past 12 months: No Number of Cigarettes Smoked Daily: 0 If you are a former smoker, when did you quit?: Over 15 years ago Hx Alcohol Use: No Drug/Substance Use Hx: No Substance Use Type: None Hx Substance Use Treatment: No Trauma Specific PMHX - Complaint Specific PMHX Back Injury: No Neck Injury: No Review of Systems - Review of Systems Able to Perform ROS?: Yes Is the patient limited Latvian proficient: Yes Constitutional: Yes: Symptoms Reported, See HPI, Loss of Appetite, Malaise. No : Fever HEENTM: Yes: Symptoms Reported, See HPI, Nose Congestion. No: Throat Swelling Respiratory: Yes: Symptoms reported, See HPI, Cough, Orthopnea, Shortness of Breath, Wheezing Cardiac (ROS): No: Symptoms Reported ABD/GI: No: Symptoms Reported : No: Symptoms Reported Musculoskeletal: Yes: Symptoms Reported, See HPI, Back Pain, Joint Pain (left hip, unable to stand after fall) Integumentary: Yes: Symptoms Reported All Other Systems: Reviewed and Negative *Physical Exam - Physical Exam General Appearance: Yes: Appropriately Dressed, Apparent Distress, Moderate Distress, Severe Distress HEENT: positive: ALEXI, Normal ENT Inspection, TMs Normal, Pharynx Normal Neck: positive: Supple. negative: Tender Respiratory/Chest: positive: Labored Respiration, Decreased Breath Sounds ( bilateral, with expiratory wheezing), Wheezing. negative: Lungs Clear Cardiovascular: positive: Regular Rhythm Gastrointestinal/Abdominal: positive: Soft. negative: Tender Extremity: positive: Normal Capillary Refill. negative: Normal Inspection, Normal Range of Motion (unable to move left leg and left foot is shortened and externally rotated. Pulses are palpable and able to wiggle toes.) Integumentary: positive: Dry, Warm, Pale Neurologic: positive: vender II-XII NML intact, Fully Oriented, Alert, Normal Mood/ Affect, Normal Response, Motor Strength 09/04 ED Treatment Course - LABORATORY CBC & Chemistry Diagram: 04/26/17 19:20 04/26/17 19:20 - RADIOLOGY Radiology Studies Ordered: Category Date Time Status CHEST X-RAY PORTABLE* [RAD] Stat Radiology 04/26/17 18:24 Ordered HIP & PELVIS-LEFT [RAD] Stat Radiology 04/26/17 18:25 Ordered Progress Note - Progress Note Progress Note: Status post fall with probable left hip fracture. We will provide morphine for pain relief immediately, and obtain x-rays and probable pre-op laboratory work. Dr. Jamil and ashely, covering for Dr. Ahumada family and patient updated., Medical Decision Making - Medical Decision Making 04/26/17 19:01 Shift change,NORMA Bennett given shift turnover , patient updated plan *DC/Admit/Observation/Transfer Diagnosis at time of Disposition: Fracture, hip Qualifiers: Encounter type: initial encounter Fracture type: closed Laterality: left Qualified Code(s): S72.002A - Fracture of unspecified part of neck of left femur , initial encounter for closed fracture - Discharge Dispostion Condition at time of disposition: Stable Admit: Yes - Referrals - Patient Instructions - Post Discharge Activity
[2017-04-26] MEDS ORDERED: ONDANSETRON 4 MG/2 ML VIAL IVPUSH ONE (18:38)
[2017-04-26 18:56] VITALS: BMI 24.7
[2017-04-26 19:35] LABS: BASO % 0.1 % (0-2.0); EOS % 0.1 % (0-4.5); HEMATOCRIT 32.5 % (32.4-45.2); LYMPH % 2.6 % (8-40); MCH 24.2 pg (25.7-33.7); MCHC 30.9 g/dl (32.0-36.0); MEAN CELL VOLUME 78.5 fl (80-96); MEAN PLT VOLUME 8.7 fl (7.5-11.1); MONO % 7.3 % (3.8-10.2); NEUT % 89.9 % (42.8-82.8); PLATELET COUNT 228 K/MM3 (134-434); RBC 4.14 M/mm3 (3.60-5.2); RDW 14.4 % (11.6-15.6); WHITE BLOOD COUNT 15.1 K/mm3 (4.0-10.0)
--- NOTE | 2017-04-26 19:39 | PDOC ---
*Physical Exam - Vital Signs Last Vital Signs Temp Pulse Resp BP Pulse Ox 97.6 F 108 H 18 111/70 96 04/26/17 17:51 04/26/17 17:51 04/26/17 17:51 04/26/17 17:51 04/26/17 17:51 ED Treatment Course - LABORATORY CBC & Chemistry Diagram: 04/26/17 19:20 04/26/17 19:20 - Medications Given in the ED: ED Medications Discontinued Medications Generic Name Dose Route Start Last Admin Trade Name Priscilla PRN Reason Stop Dose Admin Albuterol/Ipratropium 1 amp 04/26/17 18:24 04/26/17 18:37 Duoneb - NEB 04/26/17 18:25 1 amp ONCE ONE Administration Morphine Sulfate 4 mg 04/26/17 18:25 04/26/17 18:38 Morphine Injection - IVPUSH 04/26/17 18:26 4 mg ONCE ONE Administration Ondansetron HCl 4 mg 04/26/17 18:38 04/26/17 18:38 Zofran Injection IVPUSH 04/26/17 18:39 4 mg NOW ONE Administration Medical Decision Making - Medical Decision Making 04/26/17 19:28 Patient endorsed to me to follow labs and consult PMD and ortho. 04/26/17 no acute findings on labs xray hip (+) Fx left intertrochanteric Dr. Flores in the ED to see the patient Case d/w with Dr. Jamil who recommend to admit the patient to Dr. Ahumada's service Patient c/o more pain given Morphine [address] rate 106, NAD, occ PVC, (-) acute ST-T wave changes *DC/Admit/Observation/Transfer Diagnosis at time of Disposition: Fracture, hip Qualifiers: Encounter type: initial encounter Fracture type: closed Laterality: left Qualified Code(s): S72.002A - Fracture of unspecified part of neck of left femur , initial encounter for closed fracture - Discharge Dispostion Condition at time of disposition: Stable Admit: Yes - Referrals Referrals: Kaleb Ahumada MD [Primary Care Provider] - - Patient Instructions - Post Discharge Activity
[2017-04-26 19:47] LABS: INR 0.94 (0.82-1.09); PROTHROMBIN TIME (PATIENT) 10.6 SEC (9.98-11.88)
[2017-04-26 20:13] LABS: ALBUMIN 3.5 g/dl (3.4-5.0); ANION GAP 5 (8-16); BILIRUBIN,TOTAL 0.2 mg/dL (0.2-1.0); BLOOD UREA NITROGEN 21 mg/dL (7-18); CALCIUM 8.5 mg/dL (8.5-10.1); CHLORIDE 94 mmol/L (98-107); CO2 40 mmol/L (21-32); CREATININE 0.8 mg/dL (0.55-1.02); GLUCOSE,RANDOM 128 mg/dL (74-106); SGPT/ALT 39 U/L (12-78); SODIUM 139 mmol/L (136-145); TOT PROT 6.6 g/dl (6.4-8.2)
[2017-04-26 20:15] LABS: ALK PHOS 105 U/L (45-117); N-TERMINAL BNP 347.37 pg/ml (5-450)
[2017-04-26 20:28] LABS: POTASSIUM 4.6 mmol/L (3.5-5.1); SGOT/AST 24 U/L (15-37)
[2017-04-26] MEDS ORDERED: morphine CARPU-JECT 2 MG/1 ML DISP.SYRIN IVPUSH ONE (22:17)
[2017-04-27] MEDS ORDERED: ALBUTEROL SO4 18 GM HFA INHALER IH PRN (00:26)
[2017-04-27] MEDS ORDERED: diphenhydrAMINE HCL 25 MG CAPSULE (FP) PO PRN (00:26)
[2017-04-27] MEDS ORDERED: ALBUTEROL SO4 2.5/IPRATROPIUM 0.5 INH SOL 3 ML VIAL.NEB. NEB ONE (03:38)
--- NOTE | 2017-04-27 03:47 | HOSP ---
Subjective - Review of Symptoms Events since last encounter: called by RN, pt in respiratory distress, sat 88% on 50% venti mask Subjective: pt denies pain, reports SOB. Physical Examination Vital Signs: Vital Signs Temperature 97.6 F 04/26/17 17:51 Pulse Rate 96 H 04/27/17 02:23 Respiratory Rate 18 04/27/17 02:23 Blood Pressure 118/70 04/27/17 02:23 O2 Sat by Pulse Oximetry (%) 98 04/27/17 02:23 ox sat 99% on 50% venti mask upon arrival, RR 22 Constitutional: Yes: Mild Distress Cardiovascular: Yes: Regular Rate and Rhythm Respiratory: Yes: CTA Bilaterally, Diminished (bases) Gastrointestinal: Yes: WNL Labs: CBC, BMP 04/26/17 19:20 04/26/17 19:20 Hospitalist Encounter Assessment: COPD - duoneb now and QID - will check ABG to r/o retained CO2 - pt states she feels "loopy"-likely from morphine, will try to limit use hip fracture - will place FC to minimize pain during urination; remove ROMERO postop to prevent infection. Addendum 4AM: ABG with elevated CO2--89.6. will start pt on bipap. repeat ABG 1-2 hours
[2017-04-27 03:48] LABS: ARTERIAL BLD GAS O2 SATURATION 98.7 % (90-98.9); ARTERIAL BLOOD GAS BASE EXCESS 8.9 meq/l (-2-2); ARTERIAL BLOOD GAS pH 7.25 (7.35-7.45)
[2017-04-27 03:50] LABS: ALLENS TEST POSITIVE
[2017-04-27] MEDS: ALBUTEROL SO4 2.5/IPRATROPIUM 0.5 INH SOL 3 ML VIAL.NEB. NEB SCH ×3 (03:50→12:57)
[2017-04-27 03:52] LABS: ARTERIAL BLOOD GAS PCO2 89.6 mmHg (35-45)
[2017-04-27] MEDS ORDERED: ACETAMINOPHEN 325 MG TABLET (FP) PO PRN (04:25)
[2017-04-27 05:20] LABS: ARTERIAL BLD GAS O2 SATURATION 97.6 % (90-98.9); ARTERIAL BLOOD GAS BASE EXCESS 9.3 meq/l (-2-2); ARTERIAL BLOOD GAS pH 7.27 (7.35-7.45)
[2017-04-27 05:25] LABS: ALLENS TEST POSITIVE
[2017-04-27 05:27] LABS: ARTERIAL BLOOD GAS PCO2 84.4 mmHg (35-45)
[2017-04-27] MEDS: TORSEMIDE 20 MG TABLET (FP) PO SCH ×2 (06:38→14:03)
[2017-04-27 07:29] LABS: URINE APPEARANCE CLEAR; URINE BILIRUBIN NEGATIVE (NEGATIVE); URINE BLOOD NEGATIVE (NEGATIVE); URINE COLOR LTYELLOW; URINE GLUCOSE (UA) NEGATIVE (NEGATIVE); URINE KETONE NEGATIVE (NEGATIVE); URINE LEUK ESTERASE NEGATIVE (NEGATIVE); URINE NITRITE NEGATIVE (NEGATIVE); URINE PROTEIN NEGATIVE (NEGATIVE); URINE UROBILINOGEN NEGATIVE mg/dL (0.2-1.0)
[2017-04-27] MEDS: oxyCODONE HCL 5 MG TABLET PO PRN ×2 (09:57→14:03)
[2017-04-27] MEDS: POTASSIUM CHLORIDE TABS 20 MEQ TABLET.ER (FP) PO SCH (10:05)
[2017-04-27] MEDS: PANTOPRAZOLE 40 MG TABLET (FP) PO SCH (10:05)
[2017-04-27] MEDS: FERROUS SO4 325 MG TABLET (FP) PO SCH (10:05)
[2017-04-27] MEDS: MULTIVITAMINS (DAILY MVI) TABLET (FP) PO SCH (10:05)
[2017-04-27] MEDS: CALCIUM 500MG/VIT-D 200 UNITS COMBO TABLET (FP) PO SCH (10:05)
[2017-04-27] MEDS: TIOTROPIUM BROMIDE 18 MCG/INH (DEVICE W/ 5 CAPSULES) IH SCH (10:07)
[2017-04-27] MEDS: BUDESONIDE/FORMETEROL FUMARATE 80/4.5 mcg INHALER IH SCH ×2 (10:07→22:32)
--- NOTE | 2017-04-27 10:14 | CON.ORTH ---
Consult Consult Specialty:: orthopedics - History of Present Illness Chief Complaint: left hip pain History of Present Illness: This is a 76-year-old female who suffered a trip and fall at home. She felt like she broke her hip. She was brought in by ambulance to the emergency department where evaluation confirmed hip fracture. She complains only of pain in the left hip. She denies any pain elsewhere. She denies any radiating pain , numbness or tingling. Her history is significant for severe COPD and she has been treated with steroids. This has led to osteoporosis and she is being treated with Fosamax. - History Source History Provided By: Patient Limitations to Obtaining History: No Limitations - Past Medical History Cardio/Vascular: Yes: HTN Pulmonary: Yes: COPD, Other (oxygen at home) Gastrointestinal: Yes: Other (History of ulcer disease diagnosed 3 years ago when patient presented with anemia) Musculoskeletal: Yes: Osteoarthritis - Past Surgical History Past Surgical History: Yes: None - Alcohol/Substance Use Hx Alcohol Use: No History of Substance Use: reports: None - Smoking History Smoking history: Former smoker Have you smoked in the past 12 months: No Aproximately how many cigarettes per day: 0 If you are a former smoker, when did you quit?: "years ago" - Social History ADL: Independent 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, , 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 History of Recent Travel: No Home Medications - Allergies Allergies/Adverse Reactions: Allergies Allergy/AdvReac Type Severity Reaction Status Date / Time No Known Allergies Allergy Verified 04/26/17 19:39 - Home Medications Home Medications: Ambulatory Orders Albuterol Sulfate [Proair Hfa -] 1 - 2 inh PO PRN PRN 10/15/11 Fluticasone/Salmeterol [Advair 250-50 Diskus] 1 each IH BID 10/15/11 Tiotropium Hunt [Spiriva] 18 mcg IH DAILY 10/15/11 Montelukast Na [Singulair -] 10 mg PO HS #0 tablet 10/20/11 Multivitamins [Multivit ([facility] Formulary)] 1 udtab PO DAILY #0 tab 10/20/11 Ferrous Sulfate [Feosol] 325 mg PO DAILY 01/18/12 Calcium Carbonate/Vitamin D3 [Calcium 600-Vit D3 200 Tablet] 1 each PO DAILY 10/13 Docosahexanoic Acid/Epa [Fish Oil Softgel] 1 each PO DAILY 11/05/12 Potassium Chloride [K-Dur] 20 meq PO DAILY #0 tab.er.prt 11/05/12 Alendronate Sodium [Fosamax] 35 mg PO KELLER 09/01/15 Atorvastatin Ca [Lipitor] 10 mg PO HS 09/01/15 Latanoprost 0.005% Eye Drops [Xalatan 0.005% Eye Drops -] 1 drop OU HS 09/01/15 Torsemide 40 mg PO BID #120 tablet 09/02/15 Diltiazem Cd [Cardizem Cd -] 180 mg PO BID 06/30/16 Diphenhydramine HCl [Benadryl Capsule -] 25 mg PO Q6H PRN 06/30/16 Pantoprazole Sodium 40 mg PO DAILY 06/30/16 Azithromycin 250 mg PO DAILY 04/26/17 Family Disease History - Family Disease History Family Disease History: Heart Disease: Father, Other: Mother (Alzheimers Dementia) Physical Exam for Ortho Vital Signs: Vital Signs Temperature 98.3 F 04/27/17 09:11 Pulse Rate 112 H 04/27/17 09:11 Respiratory Rate 18 04/27/17 09:11 Blood Pressure 104/48 04/27/17 09:11 O2 Sat by Pulse Oximetry (%) 98 04/27/17 03:44 Constitutional: Yes: No Distress, Calm Respiratory: Yes: Other (baseline shortness of breath) Extremities: Yes: Other (The left lower extremity demonstrates no skin lesions. No swelling. There is external rotation and shortening. The knee is nontender. The ankle is nontender. Distally, sensation is intact light touch. 1+ DP pulse. EHL, FHL, TA, G, S intact.) Labs: CBC, BMP 04/26/17 19:20 04/26/17 19:20 INR, PTT INR 0.94 (0.82-1.09) 04/26/17 19:20 Imaging - Results X-ray: Report Reviewed, Image Reviewed (There is a displaced intertrochanteric hip fracture on the left. There is significant hip osteoarthritis.) Problem List - Problems (1) Fracture, hip Code(s): S72.009A - FRACTURE OF UNSP PART OF NECK OF UNSP FEMUR, INIT Qualifiers: Encounter type: initial encounter Fracture type: closed Laterality: left Qualified Code(s): S72.002A - Fracture of unspecified part of neck of left femur, initial encounter for closed fracture Assessment/Plan I reviewed today's findings with Shanna. We discussed that there is a displaced fracture of the femur. This is typically treated operatively to provide for mobilization, pain relief and return to ambulatory function. I recommend operative care. We discussed the option of nonoperative management with prolonged bedrest and risk for debilitation, pneumonia, DVT, ulcers. I reviewed the surgery in detail. This involves utilizing a metal estrellita help repair the fracture. This will allow the bone to heal in the correct alignment. Depending on the degree of injury and fracture alignment, partial or full weight bearing may be allowed. We reviewed surgical risks in detail including bleeding, infection, neurovascular injury, need for further surgery, postoperative pain and stiffness, nonunion, malunion, hardware cutout or failure , posttraumatic arthrosis. We discussed medical risks such as heart attack, stroke, DVT, PE and . We discussed the use of perioperative DVT and antibiotic prophylaxis. I discussed the post operative protocol. Of particular note and Shanna's case are a few factors. One, her pulmonary disease puts her at high risk for anesthesia. That being said, I believe she will be worse off if we do not fix the fracture as this will limit her mobility and this can significantly impact pulmonary function. We discussed that the surgery can generally be done under spinal anesthesia however, sometimes general is necessary. This could necessitate use of a breathing tube which sometimes cannot be removed after the procedure. In addition, her being on Fosamax may have an effect on fracture healing. This medication should be stopped at this time. She may consider a course of Forteo or Prolia. I addressed all of Shanna's questions. She would like to proceed surgically. We will proceed with surgery as soon as possible. She will be seen by pulmonary today. Surgery can be performed tonight if she is clear.
--- NOTE | 2017-04-27 11:26 | HP ---
Admitting History and Physical - Primary Care Physician PCP: Kaleb Ahumada - Admission Chief Complaint: I fell History of Present Illness: Ms Hadley is a very pleasant 76 year old female who comes after falling. She says she was standing and lost her balance and fell on her side. She denies head trauma, dizziness, passing out, or loss of consciousness. After falling she had pain in her lower extremity and came in and was found to have a femur fracture. She has chronic shortness of breath and that is unchanged. She denies chest pain, abdominal pain, nausea, vomiting, diarrhea, constipation, or leg swelling. She was seen by ortho and recommended for surgery. History Source: Patient Limitations to Obtaining History: No Limitations - Past Medical History Cardiovascular: Yes: HTN Pulmonary: Yes: COPD, Other (oxygen at home) Gastrointestinal: Yes: Other (History of ulcer disease diagnosed 3 years ago when patient presented with anemia) Heme/Onc: Yes: Anemia Musculoskeletal: Yes: Osteoarthritis - Past Surgical History Past Surgical History: Yes: None - Smoking History Smoking history: Former smoker Have you smoked in the past 12 months: No Aproximately how many cigarettes per day: 0 If you are a former smoker, when did you quit?: "years ago" - Alcohol/Substance Use Hx Alcohol Use: No History of Substance Use: reports: None - Social History ADL: Independent 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, , 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 History of Recent Travel: No Home Medications - Allergies Allergies/Adverse Reactions: Allergies Allergy/AdvReac Type Severity Reaction Status Date / Time No Known Allergies Allergy Verified 04/26/17 19:39 - Home Medications Home Medications: Ambulatory Orders Albuterol Sulfate [Proair Hfa -] 1 - 2 inh PO PRN PRN 10/15/11 Fluticasone/Salmeterol [Advair 250-50 Diskus] 1 each IH BID 10/15/11 Tiotropium [place] [Spiriva] 18 mcg IH DAILY 10/15/11 Montelukast Na [Singulair -] 10 mg PO HS #0 tablet 10/20/11 Multivitamins [Multivit ([facility] Formulary)] 1 udtab PO DAILY #0 tab 10/20/11 Ferrous Sulfate [Feosol] 325 mg PO DAILY 01/18/12 Calcium Carbonate/Vitamin D3 [Calcium 600-Vit D3 200 Tablet] 1 each PO DAILY 10/13 Docosahexanoic Acid/Epa [Fish Oil Softgel] 1 each PO DAILY 11/05/12 Potassium Chloride [K-Dur] 20 meq PO DAILY #0 tab.er.prt 11/05/12 Alendronate Sodium [Fosamax] 35 mg PO KELLER 09/01/15 Atorvastatin Ca [Lipitor] 10 mg PO HS 09/01/15 Latanoprost 0.005% Eye Drops [Xalatan 0.005% Eye Drops -] 1 drop OU HS 09/01/15 Torsemide 40 mg PO BID #120 tablet 09/02/15 Diltiazem Cd [Cardizem Cd -] 180 mg PO BID 06/30/16 Diphenhydramine HCl [Benadryl Capsule -] 25 mg PO Q6H PRN 06/30/16 Pantoprazole Sodium 40 mg PO DAILY 06/30/16 Azithromycin 250 mg PO DAILY 04/26/17 Family Disease History - Family Disease History Family Disease History: Heart Disease: Father, Other: Mother (Alzheimers Dementia) Review of Systems Findings/Remarks: Full review of systems obtained, as per HPI and otherwise negative Physical Examination Vital Signs: Vital Signs Temperature 36.8 C 04/27/17 09:11 Pulse Rate 112 H 04/27/17 09:11 Respiratory Rate 18 04/27/17 09:11 Blood Pressure 104/48 04/27/17 09:11 O2 Sat by Pulse Oximetry (%) 98 04/27/17 03:44 Constitutional: Yes: Well Nourished, No Distress, Calm Cardiovascular: Yes: Tachycardia. No: Pulse Irregular, Gallop, Murmur, Rub Respiratory: Yes: Regular, On Nasal O2, Rhonchi, Wheezes. No: CTA Bilaterally, Rales Gastrointestinal: Yes: Normal Bowel Sounds, Soft. No: Distention, Tenderness Extremities: Yes: WNL Edema: No Labs: CBC, BMP 04/26/17 19:20 04/26/17 19:20 Imaging - Results Chest X-ray: Report Reviewed, Image Reviewed X-ray: Report Reviewed Problem List - Problems (1) Fracture, hip Assessment/Plan: -patient with mechanical fall and hip fracture -admitted to the hospital -seen by ortho and recommending surgery -patient with history of CHF and COPD -also tachycardic on exam -given diltiazem -cardiology and pulmonary consult for both clearance and optimization Code(s): S72.009A - FRACTURE OF UNSP PART OF NECK OF UNSP FEMUR, INIT Qualifiers: Encounter type: initial encounter Fracture type: closed Laterality: left Qualified Code(s): S72.002A - Fracture of unspecified part of neck of left femur, initial encounter for closed fracture (2) COPD (chronic obstructive pulmonary disease) Assessment/Plan: -not in exacerbation -continue oxygen support -continue bronchodilators and singulair -pulmonary consult Code(s): J44.9 - CHRONIC OBSTRUCTIVE PULMONARY DISEASE, UNSPECIFIED (3) CHF (congestive heart failure) Assessment/Plan: -continue torsemide with hold parameters -cardiology consulted Code(s): I50.9 - HEART FAILURE, UNSPECIFIED Qualifiers: Congestive heart failure type: diastolic Congestive heart failure chronicity: chronic Qualified Code(s): I50.32 - Chronic diastolic (congestive ) heart failure (4) Hypertension Assessment/Plan: -controlled, with low normal this morning -torsemide held -continue diltiazem Code(s): I10 - ESSENTIAL (PRIMARY) HYPERTENSION (5) Chronic respiratory failure Assessment/Plan: -continue oxygen Code(s): J96.10 - CHRONIC RESPIRATORY FAILURE, UNSP W HYPOXIA OR HYPERCAPNIA
--- NOTE | 2017-04-27 13:10 | EKG ---
Test Reason : Blood Pressure : / mmHG Vent. Rate : 106 BPM Atrial Rate : 106 BPM P-R Int : 118 ms QRS Dur : 078 ms QT Int : 338 ms P-R-T Axes : 062 003 028 degrees QTc Int : 448 ms SINUS TACHYCARDIA WITH OCCASIONAL PREMATURE VENTRICULAR COMPLEXES POSSIBLE LEFT ATRIAL ENLARGEMENT NONSPECIFIC ST ABNORMALITY ABNORMAL ECG WHEN COMPARED WITH ECG OF 26-APR-2017 18:18, PREMATURE VENTRICULAR COMPLEXES ARE NOW PRESENT ST NOW DEPRESSED IN INFERIOR LEADS T WAVE INVERSION NO LONGER EVIDENT IN INFERIOR LEADS Confirmed by MD Karthik, Rigoberto ([id number]) on 04/27/2017 1:09:26 PM Referred By: Confirmed By:Rigoberto Angeles MD
--- NOTE | 2017-04-27 13:51 | CON.CARD ---
Cardiology Consult (text) - Consultation Consultation Note: CC: pre-op clearance 76 yo with h/o htn, hfpef, O2 dep't copd, h/o GI ulcer c/b anemia, oa who presents s/p mechanical fall c/b fracture with plan for surgery. She says she was standing and lost her balance and fell on her side. No dizziness of loc. She denies head trauma . She has chronic shortness of breath and that is unchanged. Recent uri sx's with cough and congestion. She denies chest pain, palps, orthopnea, pnd, le edema. She denies abdominal pain, nausea, vomiting, diarrhea, f/c/s, constipation, rashes, h/a No h/o dm, tia/cva, cad. Poor functional status. Limiting silva walking up 1/[address] Basilio PMhx: Per hpi Past social hx: former smoker, no etoh or illicits Family hx: Father with angina, lived into his 80's. Ros: Per hpi Ambulatory Orders Albuterol Sulfate [Proair Hfa -] 1 - 2 inh PO PRN PRN 10/15/11 Fluticasone/Salmeterol [Advair 250-50 Diskus] 1 each IH BID 10/15/11 Tiotropium Dwight [Spiriva] 18 mcg IH DAILY 10/15/11 Montelukast Na [Singulair -] 10 mg PO HS #0 tablet 10/20/11 Multivitamins [Multivit ([facility] Formulary)] 1 udtab PO DAILY #0 tab 10/20/11 Ferrous Sulfate [Feosol] 325 mg PO DAILY 01/18/12 Calcium Carbonate/Vitamin D3 [Calcium 600-Vit D3 200 Tablet] 1 each PO DAILY 10/13 Docosahexanoic Acid/Epa [Fish Oil Softgel] 1 each PO DAILY 11/05/12 Potassium Chloride [K-Dur] 20 meq PO DAILY #0 tab.er.prt 11/05/12 Alendronate Sodium [Fosamax] 35 mg PO KELLER 09/01/15 Atorvastatin Ca [Lipitor] 10 mg PO HS 09/01/15 Latanoprost 0.005% Eye Drops [Xalatan 0.005% Eye Drops -] 1 drop OU HS 09/01/15 Torsemide 40 mg PO BID #120 tablet 09/02/15 Diltiazem Cd [Cardizem Cd -] 180 mg PO BID 06/30/16 Diphenhydramine HCl [Benadryl Capsule -] 25 mg PO Q6H PRN 06/30/16 Pantoprazole Sodium 40 mg PO DAILY 06/30/16 Azithromycin 250 mg PO DAILY 04/26/17 Current Medications Acetaminophen (Tylenol -) 325 mg PO Q4H PRN PRN Reason: PAIN Stop: 04/30/17 04:24 Albuterol/Ipratropium (Duoneb -) 1 amp NEB QIDR [facility] Last Admin: 04/27/17 12:57 Dose: 1 amp Atorvastatin Calcium (Lipitor -) 10 mg PO HS [facility] Budesonide/Formoterol Fumarate (Symbicort 80/4.5mcg -) 2 puff IH BID [facility] Last Admin: 04/27/17 10:07 Dose: 2 puff Calcium Carbonate/Cholecalciferol (Os-Misha 500+D -) 1 tab PO DAILY [facility] Last Admin: 04/27/17 10:05 Dose: Not Given Diltiazem HCl (Cardizem Cd -) 180 mg PO BID [facility] Last Admin: 04/27/17 09:57 Dose: 180 mg Diphenhydramine HCl (Benadryl -) 25 mg PO Q6H PRN PRN Reason: ITCHINESS Ferrous Sulfate (Feosol -) 325 mg PO DAILY [facility] Last Admin: 04/27/17 10:05 Dose: Not Given Latanoprost (Xalatan 0.005% Eye Drops -) 1 drop OU [facility] Montelukast Sodium (Singulair -) 10 mg PO [facility] Multivitamins/Minerals/Vitamin C (Tab-A-Vit -) 1 tab PO DAILY [facility] Last Admin: 04/27/17 10:05 Dose: Not Given Oxycodone HCl (Roxicodone -) 5 mg PO Q4H PRN PRN Reason: PAIN LEVEL 6-10 Last Admin: 04/27/17 09:57 Dose: 5 mg Pantoprazole Sodium (Protonix -) 40 mg PO DAILY [facility] Last Admin: 04/27/17 10:05 Dose: Not Given Potassium Chloride (K-Dur -) 20 meq PO DAILY [facility] Last Admin: 04/27/17 10:05 Dose: Not Given Tiotropium Dwight (Spiriva -) 1 puff IH DAILY [facility] Last Admin: 04/27/17 10:07 Dose: 1 puff Torsemide (Demadex -) 40 mg PO BIDLASIX [facility] Last Admin: 04/27/17 06:38 Dose: Not Given Vital Signs - 24 hr 04/26/17 04/26/17 04/27/17 17:51 19:47 02:23 Temperature 97.6 F Pulse Rate 108 H Pulse Rate [ 96 H Left] Respiratory 18 18 Rate Blood Pressure 111/70 Blood Pressure 118/70 [Right Arm] O2 Sat by Pulse 96 97 98 Oximetry (%) 04/27/17 04/27/17 04/27/17 03:44 05:03 06:32 Temperature 98.2 F Pulse Rate 116 H 120 H 117 H Pulse Rate [ Left] Respiratory 24 22 20 Rate Blood Pressure 101/54 98/60 99/57 Blood Pressure [Right Arm] O2 Sat by Pulse 98 Oximetry (%) 04/27/17 04/27/17 09:00 09:11 Temperature 98.3 F Pulse Rate 112 H Pulse Rate [ Left] Respiratory 18 Rate Blood Pressure 104/48 Blood Pressure [Right Arm] O2 Sat by Pulse 93 L Oximetry (%) Intake & Output 04/25/17 04/26/17 04/27/17 04/28/17 07:59 07:59 07:59 07:59 Intake Total 0 Output Total 1450 Balance -1450 0 Weight 135 lb NAD, calm, JVD flat, nl effort Diminished BS, wheezes, nl effort tachycardic, regular rhythm no m/r/g + bs soft nt nd ext no edema, clubbing or cyanosis aaox3 + dp/pt no jaundice, diaphoresis CBC, BMP 04/26/17 19:20 04/26/17 19:20 Laboratory Tests 07/07/16 06:35 Magnesium 1.9 D ekg: stach, 106 bpm with pvc. short pr interval. inferolateral st sagging. cxr: no acute pulm pathology Echo 08/16: nl LV/EF; RV tds; nl LA; valves WNL; RVSP 40-50 76 yo with h/o htn, hfpef, O2 dep't copd, h/o GI ulcer c/b anemia, oa who presents s/p mechanical fall c/b fracture with plan for surgery. Pre-op clearance - Currently stable from CV perspective. No further CV testing needed prior to intervention. Based on RCRI and functional status, patient has low- intermediate estimated risk for nasir-operative CV complications. Patient counseled on risk. Tachycardia likely 2/2 pain. Pain control per surgery/pmd. - Pulmonary clearance per pulm consult. diast chf: - currently euvolemic. on torsemide 40 bid at home, can con't here. Daily weights (standing if and when possible). I/O's. daily bmp. mild pulm HTN: -estimated RVSP 40-50 on recent echo, RV not well seen on that report -? sec to LV diast chf vs ? hypoxic chronic lung dz (on home O2 for copd)- - pulmonary clearance per pulmonary. COPD, ? with a.e.: -defer to dr taylor +/- pulm as indicated, regarding airways-specific tx's HTN: - running low on diltiazem. Con't to monitor. May need to decrease dose. anemia, chronic: - con't to monitor nasir-operatively
[2017-04-27] MEDS: methylPREDNISolone NA SUCC 125 MG/2 ML VIAL IVPUSH SCH ×2 (14:03→22:09)
--- NOTE | 2017-04-27 14:05 | PN ---
Progress Note (short form) - Note Progress Note: PULMONARY CONSULTATION DICTATED 04/27/17 IMP COPD WITH CHRONIC HYPOXEMIC RESPIRATORY FAILURE ON HOME O2 ACUTE ON CHRONIC HYPERCAPNEIC RESPIRATORY FAILURE LIKELY SECONDARY TO MORPHINE LEFT FEMORAL FX S/P MECHANICAL FALL HTN PLAN IV STEROIDS O2 INHALED BRONCHODILATORS BIPAP PRN ABG ALTHOUGH PT IS A HIGH RISK FOR INTRA AND POST-OP PULMONARY COMPLICATION THERE ARE NO PULMONARY CONTRAINDICATION TO ANTICIPATED SURGERY AT THIS TIME. DR OLIVAS Problem List - Problems (1) Acute and chronic respiratory failure with hypercapnia Code(s): J96.22 - ACUTE AND CHRONIC RESPIRATORY FAILURE WITH HYPERCAPNIA (2) Chronic respiratory failure Code(s): J96.10 - CHRONIC RESPIRATORY FAILURE, UNSP W HYPOXIA OR HYPERCAPNIA (3) Fracture, hip Code(s): S72.009A - FRACTURE OF UNSP PART OF NECK OF UNSP FEMUR, INIT Qualifiers: Encounter type: initial encounter Fracture type: closed Laterality: left Qualified Code(s): S72.002A - Fracture of unspecified part of neck of left femur, initial encounter for closed fracture (4) COPD (chronic obstructive pulmonary disease) Code(s): J44.9 - CHRONIC OBSTRUCTIVE PULMONARY DISEASE, UNSPECIFIED (5) COPD exacerbation Code(s): J44.1 - CHRONIC OBSTRUCTIVE PULMONARY DISEASE W (ACUTE) EXACERBATION (6) Hypertension Code(s): I10 - ESSENTIAL (PRIMARY) HYPERTENSION
[2017-04-27 14:19] LABS: ARTERIAL BLOOD GAS pH 7.29 (7.35-7.45)
[2017-04-27 14:20] LABS: ARTERIAL BLOOD GAS PO2 73.9 mmHg (70-100)
[2017-04-27 14:21] LABS: ARTERIAL BLD GAS O2 SATURATION 92.5 % (90-98.9)
[2017-04-27 14:22] LABS: ALLENS TEST POSITIVE
[2017-04-27 14:27] LABS: ARTERIAL BLOOD GAS PCO2 85.4 mmHg (35-45)
--- NOTE | 2017-04-27 14:40 | CONS ---
DATE OF CONSULTATION: 04/27/2017 REFERRING PHYSICIAN: Perry Zuniga MD HISTORY: The patient is a 76-year-old white male known to me from previous office visits with a past medical history of end-stage COPD on home oxygen therapy, history of peptic ulcer disease diagnosed 3 years ago, anemia, osteoarthritis, longstanding history of tobacco use quit years ago admitted to [facility] status post fall sustaining left hip fracture. The patient states when she was walking and standing for a second there was loss of balance and fell on her left side. She denied any loss of consciousness, chest pains, or palpitations prior to this episode. She started complaining of pain in the left lower extremity. She came to the emergency room. EMS was called. The patient presented to the emergency room. She was noted to have a left femoral fracture. The patient denies any hemoptysis. Denies any fevers or chills. On admission, she was noted to be hypercapnic. She was placed on BiPAP. No further history available at this time. PAST MEDICAL HISTORY: Again, includes advanced COPD on home oxygen therapy, osteoarthritis, anemia, hypertension, peptic ulcer disease. REVIEW OF SYSTEMS: No orthopnea, no PND, no chest pain, no palpitations. No shortness of breath, no abdominal pain. Positive left lower extremity pain. CURRENT MEDICATIONS: Include Symbicort, Solu-Medrol, Tylenol, Spiriva, DuoNeb, Cardizem, Benadryl, Lipitor, Singulair, Demadex, Roxicodone, Xalatan, Protonix, Os-Misha, and K-Dur. PHYSICAL EXAMINATION: General: The patient is an elderly white female well developed, awake, alert in no acute distress. Vital Signs: She is currently afebrile. Blood pressure 104/48, respiratory rate 18, O2 saturation 94% on 3 L. HEENT: Normocephalic and atraumatic. Neck: Supple. Heart: Regular S1, S2. Chest: A few scattered bilateral wheezes. Abdomen: Soft. Bowel sounds positive. Extremities: There is external rotation left lower extremity. LABORATORIES: WBC is 15.1, hemoglobin 10, hematocrit 32.5 with a platelet count of 228,000, INR 0.94. Blood gas: PH of 7.27, PCO2 of 84, PO2 of 109, bicarbonate 37, saturation 96 on BiPAP on 40% and rate of 18. Chemistries: BUN 21, creatinine 0.8. Chest x-ray reveals scoliosis, degenerative changes. No acute infiltrate appreciated. There is acute left femoral intertrochanteric fracture. IMPRESSION: 1. Acute hypercapnic respiratory failure secondary to sedation, morphine. 2. Advanced chronic obstructive pulmonary disease with chronic hypoxemic respiratory failure. 3. Left hip fracture status post mechanical fall. 4. Hypertension. PLAN: Supplemental O2. Check arterial blood gas. IV steroids and inhaled bronchodilators. At this time, there are no pulmonary contraindications to anticipated surgery. We will follow postoperative with you. WM OLIVAS M.D. BEKA/[id number]
[2017-04-27] MEDS: LACTATED RINGERS SOLUTION 1,000 ML/1,000 ML INFUS.BAG IV SCH (16:10)
[2017-04-27] MEDS: ALBUTEROL SO4 0.083% IH SOL 2.5 MG/3 ML VIAL.NEB. NEB PRN ×2 (17:20→22:45)
--- NOTE | 2017-04-27 18:53 | PN ---
Progress Note (short form) - Note Progress Note: Pt lying in bed, pain controlled w meds AF VSS LLE short and ER calves soft NT intact ehl fhl ta g s sens int to LT 1+ DP ap L IT fx -pt was initially scheduled for OR tonight, traberta is not ready, will go first case tomorrow -npo p midnight -d/w pt, family -bedrest for now Problem List - Problems (1) Fracture, hip Code(s): S72.009A - FRACTURE OF UNSP PART OF NECK OF UNSP FEMUR, INIT Qualifiers: Encounter type: initial encounter Fracture type: closed Laterality: left Qualified Code(s): S72.002A - Fracture of unspecified part of neck of left femur, initial encounter for closed fracture
[2017-04-27 20:40] LABS: HEMATOCRIT 29.8 % (32.4-45.2); HEMOGLOBIN 9.1 GM/dL (10.7-15.3); MCH 24.4 pg (25.7-33.7); MCHC 30.6 g/dl (32.0-36.0); MEAN CELL VOLUME 79.7 fl (80-96); MEAN PLT VOLUME 9.3 fl (7.5-11.1); PLATELET COUNT 202 K/MM3 (134-434); RBC 3.74 M/mm3 (3.60-5.2); RDW 14.6 % (11.6-15.6); WHITE BLOOD COUNT 16.8 K/mm3 (4.0-10.0)
[2017-04-27 21:19] LABS: TARGET CELLS 1+
[2017-04-27 21:20] LABS: OVALOCYTE 1+; PLATELET ESTIMATE ADEQUATE
[2017-04-27] MEDS ORDERED: MONTELUKAST NA 10 MG TABLET PO SCH (22:00)
[2017-04-27] MEDS ORDERED: LATANOPROST 0.005% OPHTH SOLN 2.5ML BOTTLE OU SCH (22:00)
[2017-04-27] MEDS ORDERED: ATORVASTATIN CA 10 MG TABLET (FP) PO SCH (22:00)
[2017-04-27] MEDS ORDERED: PT OWN MED DRAWER 7, Y5N ONE (23:01)
[2017-04-28] MEDS: LACTATED RINGERS SOLUTION 1,000 ML/1,000 ML INFUS.BAG IV SCH (02:00)
[2017-04-28] MEDS: methylPREDNISolone NA SUCC 125 MG/2 ML VIAL IVPUSH SCH ×4 (02:00→21:02)
[2017-04-28] MEDS: TORSEMIDE 20 MG TABLET (FP) PO SCH ×2 (05:51→16:05)
[2017-04-28] MEDS ORDERED: MIDAZOLAM HCL 2 MG/2 ML SINGLE DOSE VIAL ONE (07:42)
[2017-04-28] MEDS ORDERED: BUPIVACAINE HCL/PF 0.5% (5MG/ML) 10 ML VIAL ONE (07:43)
[2017-04-28] MEDS ORDERED: ceFAZolin SODIUM 1 GM VIAL IVPB ONE (08:42)
[2017-04-28 08:52] LABS: BASO % 0.2 % (0-2.0); HEMATOCRIT 28.3 % (32.4-45.2); HEMOGLOBIN 8.6 GM/dL (10.7-15.3); LYMPH % 1.6 % (8-40); MCHC 30.4 g/dl (32.0-36.0); MEAN PLT VOLUME 9.4 fl (7.5-11.1); NEUT % 96.2 % (42.8-82.8); PLATELET COUNT 182 K/MM3 (134-434); RBC 3.59 M/mm3 (3.60-5.2); RDW 14.6 % (11.6-15.6); WHITE BLOOD COUNT 14.4 K/mm3 (4.0-10.0)
[2017-04-28 09:18] LABS: CHLORIDE 96 mmol/L (98-107); POTASSIUM 4.7 mmol/L (3.5-5.1); SODIUM 140 mmol/L (136-145)
[2017-04-28] MEDS ORDERED: ceFAZolin SODIUM 1 GM VIAL ONE (09:39)
[2017-04-28 09:49] LABS: ANION GAP 7 (8-16); BLOOD UREA NITROGEN 33 mg/dL (7-18); CALCIUM 8.1 mg/dL (8.5-10.1); CO2 37 mmol/L (21-32); GLUCOSE,RANDOM 134 mg/dL (74-106); PHOSPHOROUS 4.1 mg/dL (2.5-4.9)
[2017-04-28] MEDS ORDERED: ONDANSETRON 4 MG/2 ML VIAL IVPUSH PRN (09:49)
[2017-04-28] MEDS ORDERED: morphine CARPU-JECT 2 MG/1 ML DISP.SYRIN IVPUSH PRN (09:49)
--- NOTE | 2017-04-28 09:56 | OP ---
Operative Note - Note: Operative Date: 04/28/17 Pre-Operative Diagnosis: left hip intertrochanteric fracture Operation: left hip intramedullary nail Implants: [employer] gamma 3 [id number]. 10x90 proximal lag screw. 5x40 distal locking screw Post-Operative Diagnosis: Same as Pre-op Surgeon: Prakash Flores Cat Skinner: Delroy Moreno Anesthesiologist/DERRICK MAN: Selena Jung Anesthesia: Spinal Operative Report Dictated: Yes
[2017-04-28] MEDS ORDERED: LACTATED RINGERS SOLUTION 1,000 ML/1,000 ML INFUS.BAG IV SCH (10:17)
[2017-04-28 11:13] LABS: ARTERIAL BLD GAS O2 SATURATION 96.5 % (90-98.9); ARTERIAL BLOOD GAS BASE EXCESS 11.3 meq/l (-2-2); ARTERIAL BLOOD GAS PCO2 84.1 mmHg (35-45); ARTERIAL BLOOD GAS PO2 91.4 mmHg (70-100); ARTERIAL BLOOD GAS pH 7.29 (7.35-7.45)
[2017-04-28 11:17] LABS: ALLENS TEST POSITIVE
--- NOTE | 2017-04-28 12:52 | PN ---
Progress Note (short form) - Note Progress Note: PULMONARY AWAKE/ALERT/POST-OP THIS AM APPEARS STABLE REQUIRED NIPPV POST-OP DUE TO CO2 RETENTION/ PRESENTLY ON N/C O2 FOR LUNCH VSS/AFEBRILE ANICTERIC DIMINISHED BREATH SOUNDS B/L S1S2 BS+ S/P LEFT GAMMA NAIL HIP MEDS/LABS/NOTES/IMAGES REVIEWED IMP COPD WITH CHRONIC HYPOXEMIC RESPIRATORY FAILURE ON HOME O2 ACUTE ON CHRONIC HYPERCAPNEIC RESPIRATORY FAILURE LEFT FEMORAL FX S/P MECHANICAL FALL S/P GAMMA NAIL LEFT HIP HTN PLAN IV STEROIDS SHORT COURSE O2/NIPPV NEEDED INHALED BRONCHODILATORS FOLLOW ABG DVT PROPHYLAXSIS WILL FOLLOW Kathy WASHINGTON MD
[2017-04-28] MEDS: ALBUTEROL SO4 0.083% IH SOL 2.5 MG/3 ML VIAL.NEB. NEB PRN ×2 (14:00→22:44)
--- NOTE | 2017-04-28 14:39 | PN ---
Progress Note, Physician Chief Complaint: Ms Hadley says she is feeling better. Says her pain is much better controlled after surgery. No cp, sob, n/v. On bipap after surgery. - Current Medication List Current Medications: Active Medications Acetaminophen (Tylenol -) 325 mg PO Q4H PRN PRN Reason: PAIN Stop: 04/30/17 04:24 Albuterol Sulfate (Ventolin 0.083% Nebulizer Soln -) 1 amp NEB Q4H PRN PRN Reason: SHORT OF BREATH/WHEEZING Atorvastatin Calcium (Lipitor -) 10 mg PO HS JEANNA Budesonide/Formoterol Fumarate (Symbicort 80/4.5mcg -) 2 puff IH BID JEANNA Calcium Carbonate/Cholecalciferol (Os-Misha 500+D -) 1 tab PO DAILY [facility] Diltiazem HCl (Cardizem Cd -) 180 mg PO BID [facility] Enoxaparin Sodium (Lovenox -) 40 mg SQ DAILY [facility] Ferrous Sulfate (Feosol -) 325 mg PO DAILY [facility] Cefazolin Sodium (Ancef -) 1 gm in 10 mls @ 120 mls/hr IVPUSH Q8H JEANNA Stop: 04/28/17 22:04 Lactated Ringer's (Lactated Ringers Solution) 1,000 ml in 1,000 mls @ 100 mls/ hr IV ASDIR JEANNA Latanoprost (Xalatan 0.005% Eye Drops -) 1 drop OU HS [facility] Methylprednisolone Sodium Succinate (Solu-Medrol -) 60 mg IVPUSH Q6H-IV [facility] Montelukast Sodium (Singulair -) 10 mg PO HS [facility] Morphine Sulfate (Morphine Injection -) 1 mg IVPUSH Q10M PRN PRN Reason: PAIN Multivitamins/Minerals/Vitamin C (Tab-A-Vit -) 1 tab PO DAILY [facility] Ondansetron HCl (Zofran Injection) 4 mg IVPUSH Q6H PRN PRN Reason: NAUSEA AND/OR VOMITING Oxycodone HCl (Roxicodone -) 5 mg PO Q4H PRN PRN Reason: PAIN LEVEL 6-10 Pantoprazole Sodium (Protonix -) 40 mg PO DAILY [facility] Potassium Chloride (K-Dur -) 20 meq PO DAILY [facility] Tiotropium [place] (Spiriva -) 1 puff IH DAILY [facility] Torsemide (Demadex -) 40 mg PO BIDLASIX JEANNA - Objective Vital Signs: Vital Signs Temperature 36.7 C 04/28/17 12:25 Pulse Rate 92 H 04/28/17 12:25 Respiratory Rate 16 04/28/17 12:25 Blood Pressure 107/54 04/28/17 12:25 O2 Sat by Pulse Oximetry (%) 95 04/28/17 12:10 Constitutional: Yes: Well Nourished, No Distress, Calm Cardiovascular: Yes: Regular Rate and Rhythm. No: Gallop, Murmur, Rub Respiratory: Yes: Regular, CTA Bilaterally. No: Rales, Rhonchi, Wheezes Gastrointestinal: Yes: Normal Bowel Sounds, Soft. No: Distention, Tenderness Extremities: Yes: WNL Edema: No Labs: CBC, BMP 04/28/17 06:00 04/28/17 06:00 INR, PTT INR 0.94 (0.82-1.09) 04/26/17 19:20 Problem List - Problems (1) Fracture, hip Code(s): S72.009A - FRACTURE OF UNSP PART OF NECK OF UNSP FEMUR, INIT Qualifiers: Encounter type: initial encounter Fracture type: closed Laterality: left Qualified Code(s): S72.002A - Fracture of unspecified part of neck of left femur, initial encounter for closed fracture (2) COPD (chronic obstructive pulmonary disease) Code(s): J44.9 - CHRONIC OBSTRUCTIVE PULMONARY DISEASE, UNSPECIFIED (3) CHF (congestive heart failure) Code(s): I50.9 - HEART FAILURE, UNSPECIFIED Qualifiers: Congestive heart failure type: diastolic Congestive heart failure chronicity: chronic Qualified Code(s): I50.32 - Chronic diastolic (congestive ) heart failure (4) Hypertension Code(s): I10 - ESSENTIAL (PRIMARY) HYPERTENSION (5) Chronic respiratory failure Code(s): J96.10 - CHRONIC RESPIRATORY FAILURE, UNSP W HYPOXIA OR HYPERCAPNIA Assessment/Plan (1) Fracture, hip Assessment/Plan: -patient s/p repair -much improved -agree with DVT PPx and PT Code(s): S72.009A - FRACTURE OF UNSP PART OF NECK OF UNSP FEMUR, INIT Qualifiers: Encounter type: initial encounter Fracture type: closed Laterality: left Qualified Code(s): S72.002A - Fracture of unspecified part of neck of left femur, initial encounter for closed fracture (2) COPD (chronic obstructive pulmonary disease) Assessment/Plan -acidotic but mentally stable -appreciate pulmonary assistance -continue bipap per pulmonary recs -now on solumedrol, expect leukocytosis -continue bronchodilators Code(s): J44.9 - CHRONIC OBSTRUCTIVE PULMONARY DISEASE, UNSPECIFIED (3) CHF (congestive heart failure) Assessment/Plan: -continue torsemide with hold parameters -cardiology following Code(s): I50.9 - HEART FAILURE, UNSPECIFIED Qualifiers: Congestive heart failure type: diastolic Congestive heart failure chronicity: chronic Qualified Code(s): I50.32 - Chronic diastolic (congestive ) heart failure (4) Hypertension Assessment/Plan: -controlled, with low normal this morning -torsemide held -continue diltiazem Code(s): I10 - ESSENTIAL (PRIMARY) HYPERTENSION (5) Chronic respiratory failure Assessment/Plan: -continue oxygen Code(s): J96.10 - CHRONIC RESPIRATORY FAILURE, UNSP W HYPOXIA OR HYPERCAPNIA
[2017-04-28] MEDS: oxyCODONE HCL 5 MG TABLET PO PRN (16:05)
[2017-04-28] MEDS: ACETAMINOPHEN 325 MG TABLET (FP) PO PRN (16:06)
--- NOTE | 2017-04-28 17:25 | PN ---
Progress Note (short form) - Note Progress Note: CC: pre-op clearance S: torsemide held yesterday and this morning for low bp's. s/p surgery today. required bipap post surgery. currently breathing improved. pain controlled. no cp, palps, dizziness. Sees Dr. Basilio Current Medications Acetaminophen (Tylenol -) 325 mg PO Q4H PRN PRN Reason: PAIN Stop: 04/30/17 04:24 Last Admin: 04/28/17 16:06 Dose: 325 mg Albuterol Sulfate (Ventolin 0.083% Nebulizer Soln -) 1 amp NEB Q4H PRN PRN Reason: SHORT OF BREATH/WHEEZING Last Admin: 04/28/17 14:00 Dose: 1 amp Atorvastatin Calcium (Lipitor -) 10 mg PO HS [facility] Budesonide/Formoterol Fumarate (Symbicort 80/4.5mcg -) 2 puff IH BID JEANNA Calcium Carbonate/Cholecalciferol (Os-Misha 500+D -) 1 tab PO DAILY [facility] Diltiazem HCl (Cardizem Cd -) 180 mg PO BID JEANNA Enoxaparin Sodium (Lovenox -) 40 mg SQ DAILY [facility] Ferrous Sulfate (Feosol -) 325 mg PO DAILY [facility] Cefazolin Sodium (Ancef -) 1 gm in 10 mls @ 120 mls/hr IVPUSH Q8H JEANNA Stop: 04/28/17 22:04 Lactated Ringer's (Lactated Ringers Solution) 1,000 ml in 1,000 mls @ 100 mls/ hr IV ASDIR JEANNA Last Admin: 04/28/17 16:07 Dose: Not Given Latanoprost (Xalatan 0.005% Eye Drops -) 1 drop OU HS [facility] Methylprednisolone Sodium Succinate (Solu-Medrol -) 60 mg IVPUSH Q6H-IV [facility]ANNA Last Admin: 04/28/17 16:06 Dose: 60 mg Montelukast Sodium (Singulair -) 10 mg PO HS [facility] Morphine Sulfate (Morphine Injection -) 1 mg IVPUSH Q10M PRN PRN Reason: PAIN Multivitamins/Minerals/Vitamin C (Tab-A-Vit -) 1 tab PO DAILY [facility] Ondansetron HCl (Zofran Injection) 4 mg IVPUSH Q6H PRN PRN Reason: NAUSEA AND/OR VOMITING Last Admin: 04/28/17 16:03 Dose: 4 mg Oxycodone HCl (Roxicodone -) 5 mg PO Q4H PRN PRN Reason: PAIN LEVEL 6-10 Last Admin: 04/28/17 16:05 Dose: 5 mg Pantoprazole Sodium (Protonix -) 40 mg PO DAILY [facility] Potassium Chloride (K-Dur -) 20 meq PO DAILY [facility] Tiotropium [place] (Spiriva -) 1 puff IH DAILY [facility] Torsemide (Demadex -) 40 mg PO BIDLASIX JEANNA Last Admin: 04/28/17 16:05 Dose: 40 mg Vital Signs - 24 hr 04/27/17 04/27/17 04/27/17 19:00 20:57 21:00 Temperature 99.6 F 97.9 F Pulse Rate 114 H 110 H Respiratory 20 19 Rate Blood Pressure 111/65 120/54 O2 Sat by Pulse 95 Oximetry (%) 04/28/17 04/28/17 04/28/17 06:00 09:41 09:55 Temperature 98.5 F 97.9 F Pulse Rate 96 H 86 88 Respiratory 18 16 12 Rate Blood Pressure 105/63 103/60 106/60 O2 Sat by Pulse 100 93 L Oximetry (%) 04/28/17 04/28/17 04/28/17 10:10 10:25 10:40 Temperature Pulse Rate 90 96 H 90 Respiratory 12 12 12 Rate Blood Pressure 100/52 108/52 92/50 O2 Sat by Pulse 95 94 L 95 Oximetry (%) 04/28/17 04/28/17 04/28/17 10:55 11:10 11:25 Temperature Pulse Rate 90 92 H 92 H Respiratory 12 12 12 Rate Blood Pressure 90/50 90/50 92/52 O2 Sat by Pulse 95 95 95 Oximetry (%) 04/28/17 04/28/17 04/28/17 11:40 11:55 12:10 Temperature Pulse Rate 88 88 90 Respiratory 16 16 16 Rate Blood Pressure 102/54 98/54 104/60 O2 Sat by Pulse 100 100 95 Oximetry (%) 04/28/17 04/28/17 12:25 14:45 Temperature 98.0 F 98.3 F Pulse Rate 92 H 98 H Respiratory 16 20 Rate Blood Pressure 107/54 110/58 O2 Sat by Pulse Oximetry (%) Intake & Output 12/04/27/17 04/28/17 04/29/17 07:59 07:59 07:59 07:59 Intake Total 1200 600 Output Total 1450 1700 400 Balance -1450 -500 200 Weight 135 lb 115 lb 5 oz NAD, calm, JVD flat, nl effort Diminished BS, wheezes, nl effort tachycardic, regular rhythm no m/r/g + bs soft nt nd ext no edema, clubbing or cyanosis aaox3 + dp/pt no jaundice, diaphoresis CBC, BMP 04/28/17 06:00 04/28/17 06:00 Laboratory Tests 04/26/17 04/27/17 04/28/17 19:20 19:00 06:00 Hgb 9.1 L Potassium 4.6 Carbon Dioxide 40 H D BUN 21 H D Magnesium 3.0 H D ekg: stach, 106 bpm with pvc. short pr interval. inferolateral st sagging. cxr: no acute pulm pathology Echo 08/16: nl LV/EF; RV tds; nl LA; valves WNL; RVSP 40-50 76 yo with h/o htn, hfpef, O2 dep't copd, h/o GI ulcer c/b anemia, oa who presents s/p mechanical fall c/b fracture with plan for surgery. Pre-op clearance - Currently stable from CV perspective. No further CV testing recommended prior to intervention. Based on RCRI and functional status, estimated to have low-intermediate risk for nasir-operative CV complications. Patient counseled on risk. Tachycardia likely 2/2 pain and respiratory status. Pain control per surgery/pmd. - Pulm following. - now s/p left hip intramedullary nail to repair left hip intertrochanteric fracture on 04/28 diast chf: - currently euvolemic. on torsemide 40 bid at home, but doses held yesterday and this morning for low bp's. bed scale weight on lower end (dry weight may be closer to 120 lbs). acidotic on blood gas. Net positive. Resume torsemide bid tomorrow, con't to monitor volume status. Daily weights (standing if and when possible). I/O's. daily bmp. COPD, ? with a.e.mild pulm HTN: -estimated RVSP 40-50 on recent echo, RV not well seen on that report -? sec to LV diast chf vs ? hypoxic chronic lung dz (on home O2 for copd)- - pulmonary following. HTN: - running low on diltiazem 180 mg bid, con't for now. Monitor for need to decrease dose to 120 bid. anemia, chronic: - con't to monitor nasir-operatively
[2017-04-28] MEDS: BUDESONIDE/FORMETEROL FUMARATE 80/4.5 mcg INHALER IH SCH ×2 (19:40→21:03)
[2017-04-28] MEDS: MULTIVITAMINS (DAILY MVI) TABLET (FP) PO SCH (19:40)
[2017-04-28] MEDS: PANTOPRAZOLE 40 MG TABLET (FP) PO SCH (19:40)
[2017-04-28] MEDS: TIOTROPIUM BROMIDE 18 MCG/INH (DEVICE W/ 5 CAPSULES) IH SCH (19:40)
[2017-04-28] MEDS: CALCIUM 500MG/VIT-D 200 UNITS COMBO TABLET (FP) PO SCH (19:41)
[2017-04-28] MEDS: POTASSIUM CHLORIDE TABS 20 MEQ TABLET.ER (FP) PO SCH (19:41)
[2017-04-28] MEDS: FERROUS SO4 325 MG TABLET (FP) PO SCH (19:41)
[2017-04-28 20:14] LABS: HEMATOCRIT 27.3 % (32.4-45.2); HEMOGLOBIN 8.1 GM/dL (10.7-15.3); MCHC 29.8 g/dl (32.0-36.0); MEAN CELL VOLUME 80.6 fl (80-96); MEAN PLT VOLUME 9.7 fl (7.5-11.1); PLATELET COUNT 201 K/MM3 (134-434); RBC 3.38 M/mm3 (3.60-5.2); RDW 14.8 % (11.6-15.6); WHITE BLOOD COUNT 16.6 K/mm3 (4.0-10.0)
[2017-04-28] MEDS ORDERED: PT OWN MED DRAWER 7, Y5N ONE (20:48)
[2017-04-28] MEDS: MONTELUKAST NA 10 MG TABLET PO SCH (21:02)
[2017-04-28] MEDS: CEFAZOLIN 1 GM PUSH 1 GM/10 ML DISP.SYRIN IVPUSH SCH (21:02)
[2017-04-28] MEDS: LATANOPROST 0.005% OPHTH SOLN 2.5ML BOTTLE OU SCH (21:03)
[2017-04-28] MEDS: ATORVASTATIN CA 10 MG TABLET (FP) PO SCH (21:03)
[2017-04-29] MEDS: CEFAZOLIN 1 GM PUSH 1 GM/10 ML DISP.SYRIN IVPUSH SCH (01:47)
[2017-04-29] MEDS ORDERED: PT OWN MED DRAWER 7, Y5N ONE ×2 (01:49→20:57)
[2017-04-29] MEDS: methylPREDNISolone NA SUCC 125 MG/2 ML VIAL IVPUSH SCH ×4 (02:09→21:01)
[2017-04-29] MEDS: TORSEMIDE 20 MG TABLET (FP) PO SCH ×2 (05:59→14:40)
[2017-04-29] MEDS ORDERED: CEFAZOLIN 1 GM PUSH 1 GM/10 ML DISP.SYRIN IVPUSH SCH (06:00)
[2017-04-29] MEDS: ALBUTEROL SO4 0.083% IH SOL 2.5 MG/3 ML VIAL.NEB. NEB PRN ×2 (06:55→17:54)
[2017-04-29 08:30] LABS: HEMATOCRIT 27.5 % (32.4-45.2); HEMOGLOBIN 8.3 GM/dL (10.7-15.3); MCHC 30.2 g/dl (32.0-36.0); MEAN CELL VOLUME 79.6 fl (80-96); MEAN PLT VOLUME 9.1 fl (7.5-11.1); PLATELET COUNT 189 K/MM3 (134-434); RBC 3.45 M/mm3 (3.60-5.2); RDW 14.6 % (11.6-15.6); WHITE BLOOD COUNT 16.8 K/mm3 (4.0-10.0)
[2017-04-29 08:57] LABS: ANION GAP 7 (8-16); BLOOD UREA NITROGEN 35 mg/dL (7-18); CALCIUM 7.9 mg/dL (8.5-10.1); CHLORIDE 92 mmol/L (98-107); CO2 39 mmol/L (21-32); GLUCOSE,RANDOM 148 mg/dL (74-106); POTASSIUM 4.6 mmol/L (3.5-5.1); SODIUM 138 mmol/L (136-145)
[2017-04-29] MEDS: TIOTROPIUM BROMIDE 18 MCG/INH (DEVICE W/ 5 CAPSULES) IH SCH (10:15)
[2017-04-29] MEDS: FERROUS SO4 325 MG TABLET (FP) PO SCH (10:16)
[2017-04-29] MEDS: MULTIVITAMINS (DAILY MVI) TABLET (FP) PO SCH (10:16)
[2017-04-29] MEDS: CALCIUM 500MG/VIT-D 200 UNITS COMBO TABLET (FP) PO SCH (10:17)
[2017-04-29] MEDS: PANTOPRAZOLE 40 MG TABLET (FP) PO SCH (10:17)
[2017-04-29] MEDS: oxyCODONE HCL 5 MG TABLET PO PRN ×2 (10:18→14:42)
[2017-04-29] MEDS: POTASSIUM CHLORIDE TABS 20 MEQ TABLET.ER (FP) PO SCH (10:18)
[2017-04-29] MEDS: ENOXAPARIN NA (PORCINE) 40 MG/0.4 ML DISP.SYRIN SQ SCH (10:18)
[2017-04-29] MEDS: BUDESONIDE/FORMETEROL FUMARATE 80/4.5 mcg INHALER IH SCH ×2 (10:19→21:02)
--- NOTE | 2017-04-29 11:46 | PN ---
Progress Note, Physician Chief Complaint: Ms Hadley says she is feeling better. Complains of nasal congestion. Also states she feels she cannot breathe as deeply as she would like. No cp or n/v. - Current Medication List Current Medications: Active Medications Acetaminophen (Tylenol -) 325 mg PO Q4H PRN PRN Reason: PAIN Stop: 04/30/17 04:24 Last Admin: 04/28/17 16:06 Dose: 325 mg Albuterol Sulfate (Ventolin 0.083% Nebulizer Soln -) 1 amp NEB Q4H PRN PRN Reason: SHORT OF BREATH/WHEEZING Last Admin: 04/29/17 06:55 Dose: 1 amp Atorvastatin Calcium (Lipitor -) 10 mg PO HS JEANNA Last Admin: 04/28/17 21:03 Dose: 10 mg Budesonide/Formoterol Fumarate (Symbicort 80/4.5mcg -) 2 puff IH BID JEANNA Last Admin: 04/29/17 10:19 Dose: 2 puff Calcium Carbonate/Cholecalciferol (Os-Misha 500+D -) 1 tab PO DAILY [facility] Last Admin: 04/29/17 10:17 Dose: 1 tab Diltiazem HCl (Cardizem Cd -) 180 mg PO BID [facility]NA Last Admin: 04/29/17 10:16 Dose: 180 mg Enoxaparin Sodium (Lovenox -) 40 mg SQ DAILY [facility] Last Admin: 04/29/17 10:18 Dose: 40 mg Ferrous Sulfate (Feosol -) 325 mg PO DAILY [facility] Last Admin: 04/29/17 10:16 Dose: 325 mg Lactated Ringer's (Lactated Ringers Solution) 1,000 ml in 1,000 mls @ 100 mls/ hr IV ASDIR JEANNA Last Admin: 04/28/17 16:07 Dose: Not Given Latanoprost (Xalatan 0.005% Eye Drops -) 1 drop OU HS [facility]ANNA Last Admin: 04/28/17 21:03 Dose: 1 drop Methylprednisolone Sodium Succinate (Solu-Medrol -) 60 mg IVPUSH Q6H-IV [facility]ANNA Last Admin: 04/29/17 10:16 Dose: 60 mg Montelukast Sodium (Singulair -) 10 mg PO HS [facility] Last Admin: 04/28/17 21:02 Dose: 10 mg Morphine Sulfate (Morphine Injection -) 1 mg IVPUSH Q10M PRN PRN Reason: PAIN Multivitamins/Minerals/Vitamin C (Tab-A-Vit -) 1 tab PO DAILY [facility] Last Admin: 04/29/17 10:16 Dose: 1 tab Ondansetron HCl (Zofran Injection) 4 mg IVPUSH Q6H PRN PRN Reason: NAUSEA AND/OR VOMITING Last Admin: 04/28/17 16:03 Dose: 4 mg Oxycodone HCl (Roxicodone -) 5 mg PO Q4H PRN PRN Reason: PAIN LEVEL 6-10 Last Admin: 04/29/17 10:18 Dose: 5 mg Pantoprazole Sodium (Protonix -) 40 mg PO DAILY [facility] Last Admin: 04/29/17 10:17 Dose: 40 mg Potassium Chloride (K-Dur -) 20 meq PO DAILY [facility] Last Admin: 04/29/17 10:18 Dose: 20 meq Tiotropium [place] (Spiriva -) 1 puff IH DAILY [facility] Last Admin: 04/29/17 10:15 Dose: 1 inh Torsemide (Demadex -) 40 mg PO BIDLASIX [facility] Last Admin: 04/29/17 05:59 Dose: 40 mg - Objective Vital Signs: Vital Signs Temperature 36.7 C 04/29/17 05:43 Pulse Rate 95 H 04/29/17 11:14 Respiratory Rate 18 04/29/17 05:43 Blood Pressure 118/70 04/29/17 05:43 O2 Sat by Pulse Oximetry (%) 96 04/29/17 11:14 Constitutional: Yes: Well Nourished, No Distress, Calm Cardiovascular: Yes: Regular Rate and Rhythm. No: Gallop, Murmur, Rub Respiratory: Yes: Regular, CTA Bilaterally, On Nasal O2, Other (diminshed breath sounds in all [place]) Gastrointestinal: Yes: Normal Bowel Sounds, Soft. No: Distention, Tenderness Extremities: Yes: Other (dry) Edema: No Labs: CBC, BMP 04/29/17 08:05 04/29/17 08:05 INR, PTT INR 0.94 (0.82-1.09) 04/26/17 19:20 Problem List - Problems (1) Fracture, hip Code(s): S72.009A - FRACTURE OF UNSP PART OF NECK OF UNSP FEMUR, INIT Qualifiers: Encounter type: initial encounter Fracture type: closed Laterality: left Qualified Code(s): S72.002A - Fracture of unspecified part of neck of left femur, initial encounter for closed fracture (2) COPD (chronic obstructive pulmonary disease) Code(s): J44.9 - CHRONIC OBSTRUCTIVE PULMONARY DISEASE, UNSPECIFIED (3) CHF (congestive heart failure) Code(s): I50.9 - HEART FAILURE, UNSPECIFIED Qualifiers: Congestive heart failure type: diastolic Congestive heart failure chronicity: chronic Qualified Code(s): I50.32 - Chronic diastolic (congestive ) heart failure (4) Hypertension Code(s): I10 - ESSENTIAL (PRIMARY) HYPERTENSION (5) Chronic respiratory failure Code(s): J96.10 - CHRONIC RESPIRATORY FAILURE, UNSP W HYPOXIA OR HYPERCAPNIA Assessment/Plan (1) Fracture, hip Assessment/Plan: -patient s/p repair -much improved -agree with DVT PPx and PT Code(s): S72.009A - FRACTURE OF UNSP PART OF NECK OF UNSP FEMUR, INIT Qualifiers: Encounter type: initial encounter Fracture type: closed Laterality: left Qualified Code(s): S72.002A - Fracture of unspecified part of neck of left femur, initial encounter for closed fracture (2) COPD (chronic obstructive pulmonary disease) Assessment/Plan -remains in exacerbation -appreciate pulmonary assistance -fair air movement but very tight on exam -continue solumedrol -continue bronchodilators Code(s): J44.9 - CHRONIC OBSTRUCTIVE PULMONARY DISEASE, UNSPECIFIED (3) CHF (congestive heart failure) Assessment/Plan: -continue torsemide with hold parameters -cardiology following Code(s): I50.9 - HEART FAILURE, UNSPECIFIED Qualifiers: Congestive heart failure type: diastolic Congestive heart failure chronicity: chronic Qualified Code(s): I50.32 - Chronic diastolic (congestive ) heart failure (4) Hypertension Assessment/Plan: -controlled, with low normal this morning -continue torsemide and diltiazem Code(s): I10 - ESSENTIAL (PRIMARY) HYPERTENSION (5) Chronic respiratory failure Assessment/Plan: -continue oxygen Code(s): J96.10 - CHRONIC RESPIRATORY FAILURE, UNSP W HYPOXIA OR HYPERCAPNIA
--- NOTE | 2017-04-29 14:19 | PN ---
Progress Note, Physician Chief Complaint: Pt. pain controlled, no anesthesia complaints, eating and voiding. - Current Medication List Current Medications: Active Medications Acetaminophen (Tylenol -) 325 mg PO Q4H PRN PRN Reason: PAIN Stop: 04/30/17 04:24 Last Admin: 04/28/17 16:06 Dose: 325 mg Albuterol Sulfate (Ventolin 0.083% Nebulizer Soln -) 1 amp NEB Q4H PRN PRN Reason: SHORT OF BREATH/WHEEZING Last Admin: 04/29/17 06:55 Dose: 1 amp Atorvastatin Calcium (Lipitor -) 10 mg PO HS [facility] Last Admin: 04/28/17 21:03 Dose: 10 mg Budesonide/Formoterol Fumarate (Symbicort 80/4.5mcg -) 2 puff IH BID [facility] Last Admin: 04/29/17 10:19 Dose: 2 puff Calcium Carbonate/Cholecalciferol (Os-Misha 500+D -) 1 tab PO DAILY [facility] Last Admin: 04/29/17 10:17 Dose: 1 tab Diltiazem HCl (Cardizem Cd -) 180 mg PO BID [facility] Last Admin: 04/29/17 10:16 Dose: 180 mg Enoxaparin Sodium (Lovenox -) 40 mg SQ DAILY [facility] Last Admin: 04/29/17 10:18 Dose: 40 mg Ferrous Sulfate (Feosol -) 325 mg PO DAILY [facility] Last Admin: 04/29/17 10:16 Dose: 325 mg Latanoprost (Xalatan 0.005% Eye Drops -) 1 drop OU HS [facility] Last Admin: 04/28/17 21:03 Dose: 1 drop Loratadine (Claritin -) 10 mg PO DAILY [facility] Methylprednisolone Sodium Succinate (Solu-Medrol -) 60 mg IVPUSH Q6H-IV [facility] Last Admin: 04/29/17 10:16 Dose: 60 mg Montelukast Sodium (Singulair -) 10 mg PO HS [facility] Last Admin: 04/28/17 21:02 Dose: 10 mg Morphine Sulfate (Morphine Injection -) 1 mg IVPUSH Q10M PRN PRN Reason: PAIN Multi-Ingredient Lotion (Eucerin (Small Jar) -) 1 applic TP DAILY [facility] Multivitamins/Minerals/Vitamin C (Tab-A-Vit -) 1 tab PO DAILY [facility] Last Admin: 04/29/17 10:16 Dose: 1 tab Ondansetron HCl (Zofran Injection) 4 mg IVPUSH Q6H PRN PRN Reason: NAUSEA AND/OR VOMITING Last Admin: 04/28/17 16:03 Dose: 4 mg Oxycodone HCl (Roxicodone -) 5 mg PO Q4H PRN PRN Reason: PAIN LEVEL 6-10 Last Admin: 04/29/17 10:18 Dose: 5 mg Pantoprazole Sodium (Protonix -) 40 mg PO DAILY [facility] Last Admin: 04/29/17 10:17 Dose: 40 mg Potassium Chloride (K-Dur -) 20 meq PO DAILY [facility] Last Admin: 04/29/17 10:18 Dose: 20 meq Tiotropium [place] (Spiriva -) 1 puff IH DAILY [facility] Last Admin: 04/29/17 10:15 Dose: 1 inh Torsemide (Demadex -) 40 mg PO BIDLASIX [facility] Last Admin: 04/29/17 05:59 Dose: 40 mg - Objective Vital Signs: Vital Signs Temperature 98.0 F 04/29/17 05:43 Pulse Rate 95 H 04/29/17 11:14 Respiratory Rate 18 04/29/17 09:00 Blood Pressure 103/61 04/29/17 09:00 O2 Sat by Pulse Oximetry (%) 96 04/29/17 11:14 Constitutional: Yes: Well Nourished, No Distress, Calm Musculoskeletal: Yes: WNL Neurological: Yes: WNL, Alert, Oriented ...Motor Strength: WNL Labs: CBC, BMP 04/29/17 08:05 04/29/17 08:05 INR, PTT INR 0.94 (0.82-1.09) 04/26/17 19:20 Assessment/Plan POD#1 s/p Left hip Gamma Nail under spinal. Doing well. D/C from anesthesia care.
[2017-04-29] MEDS: LORATADINE 10 MG TABLET PO SCH (14:40)
[2017-04-29] MEDS: ACETAMINOPHEN 325 MG TABLET (FP) PO PRN (14:42)
--- NOTE | 2017-04-29 15:27 | PN ---
Progress Note (short form) - Note Progress Note: Pt lying in bed, pain slightly better than yesterday. No chest pain but feels slightly short of breath. Last Vital Signs Temp Pulse Resp BP Pulse Ox 99.4 F 117 H 18 126/72 96 04/29/17 14:31 04/29/17 14:31 04/29/17 09:00 04/29/17 14:31 04/29/17 11:14 AF VSS LLE dressings cdi intact ehl fhl ta g s sens int to LT 2+ DP ap POD 1 L femoral nail -pain control, minimize narcotics -dvt proph -oob/rehab -f/u wbc, tachycardia, may be secondary to pain and inflammation Problem List - Problems (1) Fracture, hip Code(s): S72.009A - FRACTURE OF UNSP PART OF NECK OF UNSP FEMUR, INIT Qualifiers: Encounter type: initial encounter Fracture type: closed Laterality: left Qualified Code(s): S72.002A - Fracture of unspecified part of neck of left femur, initial encounter for closed fracture
--- NOTE | 2017-04-29 16:02 | PN ---
Progress Note (short form) - Note Progress Note: PULMONARY AWAKE/ALERT/POST-OP DAY #2 APPEARS STABLE REQUIRED NIPPV POST-OP DUE TO CO2 RETENTION/ PRESENTLY ON N/C O2 COMPLAINING OF CHEST CONGESTION VSS/AFEBRILE ANICTERIC DIMINISHED BREATH SOUNDS B/L S1S2 BS+ S/P LEFT GAMMA NAIL HIP MEDS/LABS/NOTES/IMAGES REVIEWED IMP COPD WITH CHRONIC HYPOXEMIC RESPIRATORY FAILURE ON HOME O2 ACUTE ON CHRONIC HYPERCAPNEIC RESPIRATORY FAILURE LEFT FEMORAL FX S/P MECHANICAL FALL S/P GAMMA NAIL LEFT HIP HTN PLAN IV STEROIDS SHORT COURSE O2/NIPPV NEEDED INHALED BRONCHODILATORS FOLLOW CXR DVT PROPHYLAXSIS WILL FOLLOW Kathy WASHINGTON MD
[2017-04-29] MEDS: MINERAL OIL/PETROLAT/WATER TOPICAL CREAM 113 GM JAR TP SCH (17:30)
[2017-04-29] MEDS: MONTELUKAST NA 10 MG TABLET PO SCH (21:01)
[2017-04-29] MEDS: LATANOPROST 0.005% OPHTH SOLN 2.5ML BOTTLE OU SCH (21:02)
[2017-04-29] MEDS: ATORVASTATIN CA 10 MG TABLET (FP) PO SCH (21:02)
--- NOTE | 2017-04-29 23:54 | PN ---
Progress Note (short form) - Note Progress Note: CC: pre-op clearance S: breathing improving today still intermittently requiring bipap. no cp, palps, dizziness. Pain controlled Current Medications Acetaminophen (Tylenol -) 325 mg PO Q4H PRN PRN Reason: PAIN Stop: 04/30/17 04:24 Last Admin: 04/29/17 14:42 Dose: 325 mg Albuterol Sulfate (Ventolin 0.083% Nebulizer Soln -) 1 amp NEB Q4H PRN PRN Reason: SHORT OF BREATH/WHEEZING Last Admin: 04/29/17 17:54 Dose: 1 amp Atorvastatin Calcium (Lipitor -) 10 mg PO HS [facility] Last Admin: 04/29/17 21:02 Dose: 10 mg Budesonide/Formoterol Fumarate (Symbicort 80/4.5mcg -) 2 puff IH BID [facility] Last Admin: 04/29/17 21:02 Dose: 2 puff Calcium Carbonate/Cholecalciferol (Os-Misha 500+D -) 1 tab PO DAILY [facility] Last Admin: 04/29/17 10:17 Dose: 1 tab Diltiazem HCl (Cardizem Cd -) 180 mg PO BID [facility] Last Admin: 04/29/17 21:02 Dose: 180 mg Enoxaparin Sodium (Lovenox -) 40 mg SQ DAILY [facility] Last Admin: 04/29/17 10:18 Dose: 40 mg Ferrous Sulfate (Feosol -) 325 mg PO DAILY [facility] Last Admin: 04/29/17 10:16 Dose: 325 mg Latanoprost (Xalatan 0.005% Eye Drops -) 1 drop OU HS [facility] Last Admin: 04/29/17 21:02 Dose: 1 drop Loratadine (Claritin -) 10 mg PO DAILY [facility] Last Admin: 04/29/17 14:40 Dose: 10 mg Methylprednisolone Sodium Succinate (Solu-Medrol -) 60 mg IVPUSH Q6H-IV [facility] Last Admin: 04/29/17 21:01 Dose: 60 mg Montelukast Sodium (Singulair -) 10 mg PO HS [facility] Last Admin: 04/29/17 21:01 Dose: 10 mg Morphine Sulfate (Morphine Injection -) 1 mg IVPUSH Q10M PRN PRN Reason: PAIN Multi-Ingredient Lotion (Eucerin (Small Jar) -) 1 applic TP DAILY [facility] Last Admin: 04/29/17 17:30 Dose: 1 applic Multivitamins/Minerals/Vitamin C (Tab-A-Vit -) 1 tab PO DAILY [facility] Last Admin: 04/29/17 10:16 Dose: 1 tab Ondansetron HCl (Zofran Injection) 4 mg IVPUSH Q6H PRN PRN Reason: NAUSEA AND/OR VOMITING Last Admin: 04/28/17 16:03 Dose: 4 mg Oxycodone HCl (Roxicodone -) 5 mg PO Q4H PRN PRN Reason: PAIN LEVEL 6-10 Last Admin: 04/29/17 14:42 Dose: 5 mg Pantoprazole Sodium (Protonix -) 40 mg PO DAILY [facility] Last Admin: 04/29/17 10:17 Dose: 40 mg Potassium Chloride (K-Dur -) 20 meq PO DAILY [facility] Last Admin: 04/29/17 10:18 Dose: 20 meq Tiotropium [place] (Spiriva -) 1 puff IH DAILY [facility] Last Admin: 04/29/17 10:15 Dose: 1 inh Torsemide (Demadex -) 40 mg PO BIDLASIX [facility] Last Admin: 04/29/17 14:40 Dose: 40 mg Vital Signs - 24 hr 04/29/17 04/29/17 04/29/17 02:00 05:43 09:00 Temperature 99.0 F 98.0 F Pulse Rate 95 H 95 H 112 H Respiratory 18 18 18 Rate Blood Pressure 109/64 118/70 103/61 O2 Sat by Pulse 95 Oximetry (%) 04/29/17 04/29/17 04/29/17 11:14 14:31 18:30 Temperature 99.4 F 98.1 F Pulse Rate 95 H 117 H 86 Respiratory 18 Rate Blood Pressure 126/72 124/61 O2 Sat by Pulse 96 Oximetry (%) Intake & Output 04/27/17 04/28/17 04/29/17 04/30/17 07:59 07:59 07:59 07:59 Intake Total 1200 920 Output Total 1450 1700 400 300 Balance -1450 -500 520 -300 Weight 135 lb 115 lb 5 oz 115 lb 2 oz NAD, calm, JVD flat, nl effort Diminished BS, wheezes, nl effort tachycardic, regular rhythm no m/r/g + bs soft nt nd ext no edema, clubbing or cyanosis aaox3 + dp/pt no jaundice, diaphoresis CBC, BMP 04/29/17 08:05 04/29/17 08:05 ekg: stach, 106 bpm with pvc. short pr interval. inferolateral st sagging. cxr: no acute pulm pathology Echo 08/16: nl LV/EF; RV tds; nl LA; valves WNL; RVSP 40-50 76 yo with h/o htn, hfpef, O2 dep't copd, h/o GI ulcer c/b anemia, oa who presents s/p mechanical fall c/b fracture with plan for surgery. Pre-op clearance - Currently stable from CV perspective. No further CV testing recommended prior to intervention. Based on RCRI and functional status, estimated to have low-intermediate risk for nasir-operative CV complications. Patient counseled on risk. Tachycardia likely 2/2 pain and respiratory status. Pain control per surgery/pmd. - Pulm following. - now s/p left hip intramedullary nail to repair left hip intertrochanteric fracture on 04/28 - bp/hr overall reasonable control given clincial status. diast chf: - currently euvolemic. on torsemide 40 bid at home, continued here (only held 04/27 and am 04/28). bed scale weight on lower end (dry weight may be closer to 120 lbs). - 04/29 con't bid po torsemide, con't to monitor volume status. Daily weights (standing if and when possible). I/O's. daily bmp. COPD, ? with a.e.mild pulm HTN: -estimated RVSP 40-50 on recent echo, RV not well seen on that report -? sec to LV diast chf vs ? hypoxic chronic lung dz (on home O2 for copd)- - pulmonary following. HTN: - bp improving. con't diltiazem 180 mg bid, anemia, chronic: - con't to monitor nasir-operatively
[2017-04-30] MEDS: methylPREDNISolone NA SUCC 125 MG/2 ML VIAL IVPUSH SCH ×2 (02:09→10:52)
[2017-04-30] MEDS: ALBUTEROL SO4 0.083% IH SOL 2.5 MG/3 ML VIAL.NEB. NEB PRN (04:46)
[2017-04-30] MEDS ORDERED: MAG HYDROX/AL HYDROX/SIMETH 30 ML UNIT-DOSE CUP PO ONE (04:54)
[2017-04-30] MEDS ORDERED: PT OWN MED DRAWER 7, Y5N ONE ×2 (04:59→21:51)
[2017-04-30] MEDS: TORSEMIDE 20 MG TABLET (FP) PO SCH ×2 (05:03→14:24)
[2017-04-30 06:04] LABS: HEMATOCRIT 25.2 % (32.4-45.2); HEMOGLOBIN 7.7 GM/dL (10.7-15.3); MCH 24.2 pg (25.7-33.7); MCHC 30.8 g/dl (32.0-36.0); MEAN CELL VOLUME 78.9 fl (80-96); MEAN PLT VOLUME 9.2 fl (7.5-11.1); PLATELET COUNT 176 K/MM3 (134-434); RBC 3.19 M/mm3 (3.60-5.2); RDW 14.1 % (11.6-15.6); WHITE BLOOD COUNT 14.2 K/mm3 (4.0-10.0)
[2017-04-30 06:46] LABS: ANION GAP 7 (8-16); BLOOD UREA NITROGEN 40 mg/dL (7-18); CALCIUM 8.4 mg/dL (8.5-10.1); CHLORIDE 92 mmol/L (98-107); CO2 39 mmol/L (21-32); CREATININE 0.9 mg/dL (0.55-1.02); GLUCOSE,RANDOM 140 mg/dL (74-106); MAGNESIUM 2.3 mg/dL (1.8-2.4); PHOSPHOROUS 3.4 mg/dL (2.5-4.9); POTASSIUM 5.1 mmol/L (3.5-5.1); SODIUM 138 mmol/L (136-145)
[2017-04-30] MEDS: CALCIUM 500MG/VIT-D 200 UNITS COMBO TABLET (FP) PO SCH (10:53)
[2017-04-30] MEDS: LORATADINE 10 MG TABLET PO SCH (10:53)
[2017-04-30] MEDS: FERROUS SO4 325 MG TABLET (FP) PO SCH (10:54)
[2017-04-30] MEDS: PANTOPRAZOLE 40 MG TABLET (FP) PO SCH (10:54)
[2017-04-30] MEDS: MULTIVITAMINS (DAILY MVI) TABLET (FP) PO SCH (10:54)
[2017-04-30] MEDS: ENOXAPARIN NA (PORCINE) 40 MG/0.4 ML DISP.SYRIN SQ SCH (10:54)
[2017-04-30] MEDS: TIOTROPIUM BROMIDE 18 MCG/INH (DEVICE W/ 5 CAPSULES) IH SCH (10:56)
[2017-04-30] MEDS: BUDESONIDE/FORMETEROL FUMARATE 80/4.5 mcg INHALER IH SCH ×2 (10:56→21:54)
[2017-04-30] MEDS: POTASSIUM CHLORIDE TABS 20 MEQ TABLET.ER (FP) PO SCH (10:57)
[2017-04-30] MEDS: MINERAL OIL/PETROLAT/WATER TOPICAL CREAM 113 GM JAR TP SCH (11:02)
--- NOTE | 2017-04-30 11:54 | PN ---
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
--- NOTE | 2017-04-30 12:39 | PN ---
Progress Note, Physician Chief Complaint: Ms Hadley continues to improve. Says her breathing is better today. Denies cp and n/v. - Current Medication List Current Medications: Active Medications Albuterol Sulfate (Ventolin 0.083% Nebulizer Soln -) 1 amp NEB Q4H PRN PRN Reason: SHORT OF BREATH/WHEEZING Last Admin: 04/30/17 04:46 Dose: 1 amp Atorvastatin Calcium (Lipitor -) 10 mg PO HS [facility] Last Admin: 04/29/17 21:02 Dose: 10 mg Budesonide/Formoterol Fumarate (Symbicort 80/4.5mcg -) 2 puff IH BID [facility] Last Admin: 04/30/17 10:56 Dose: 2 puff Calcium Carbonate/Cholecalciferol (Os-Misha 500+D -) 1 tab PO DAILY [facility] Last Admin: 04/30/17 10:53 Dose: 1 tab Diltiazem HCl (Cardizem Cd -) 180 mg PO BID [facility] Last Admin: 04/30/17 10:53 Dose: 180 mg Enoxaparin Sodium (Lovenox -) 40 mg SQ DAILY [facility] Last Admin: 04/30/17 10:54 Dose: 40 mg Ferrous Sulfate (Feosol -) 325 mg PO DAILY [facility] Last Admin: 04/30/17 10:54 Dose: 325 mg Latanoprost (Xalatan 0.005% Eye Drops -) 1 drop OU HS [facility] Last Admin: 04/29/17 21:02 Dose: 1 drop Loratadine (Claritin -) 10 mg PO DAILY [facility] Last Admin: 04/30/17 10:53 Dose: 10 mg Montelukast Sodium (Singulair -) 10 mg PO HS [facility] Last Admin: 04/29/17 21:01 Dose: 10 mg Morphine Sulfate (Morphine Injection -) 1 mg IVPUSH Q10M PRN PRN Reason: PAIN Multi-Ingredient Lotion (Eucerin (Small Jar) -) 1 applic TP DAILY [facility] Last Admin: 04/30/17 11:02 Dose: 1 applic Multivitamins/Minerals/Vitamin C (Tab-A-Vit -) 1 tab PO DAILY [facility] Last Admin: 04/30/17 10:54 Dose: 1 tab Ondansetron HCl (Zofran Injection) 4 mg IVPUSH Q6H PRN PRN Reason: NAUSEA AND/OR VOMITING Last Admin: 04/28/17 16:03 Dose: 4 mg Oxycodone HCl (Roxicodone -) 5 mg PO Q4H PRN PRN Reason: PAIN LEVEL 6-10 Last Admin: 04/29/17 14:42 Dose: 5 mg Pantoprazole Sodium (Protonix -) 40 mg PO DAILY [facility] Last Admin: 04/30/17 10:54 Dose: 40 mg Potassium Chloride (K-Dur -) 20 meq PO DAILY [facility] Last Admin: 04/30/17 10:57 Dose: 20 meq Prednisone (Deltasone -) 20 mg PO DAILY [facility] Tiotropium [place] (Spiriva -) 1 puff IH DAILY [facility] Last Admin: 04/30/17 10:56 Dose: 1 inh Torsemide (Demadex -) 40 mg PO BIDLASIX [facility] Last Admin: 04/30/17 05:03 Dose: 40 mg - Objective Vital Signs: Vital Signs Temperature 37.1 C 04/30/17 05:13 Pulse Rate 92 H 04/30/17 12:02 Respiratory Rate 18 04/30/17 05:13 Blood Pressure 127/74 04/30/17 05:13 O2 Sat by Pulse Oximetry (%) 98 04/30/17 12:02 Constitutional: Yes: Well Nourished, No Distress, Calm Cardiovascular: Yes: Regular Rate and Rhythm. No: Gallop, Murmur, Rub Respiratory: Yes: Regular, On Nasal O2, Wheezes (upper airway), Other (fair air movement, improved from yesterday). No: CTA Bilaterally, Rales, Rhonchi Gastrointestinal: Yes: Normal Bowel Sounds, Soft. No: Distention, Tenderness Extremities: Yes: WNL Edema: No Labs: CBC, BMP 04/30/17 05:40 04/30/17 05:40 INR, PTT INR 0.94 (0.82-1.09) 04/26/17 19:20 Problem List - Problems (1) Fracture, hip Code(s): S72.009A - FRACTURE OF UNSP PART OF NECK OF UNSP FEMUR, INIT Qualifiers: Encounter type: initial encounter Fracture type: closed Laterality: left Qualified Code(s): S72.002A - Fracture of unspecified part of neck of left femur, initial encounter for closed fracture (2) COPD (chronic obstructive pulmonary disease) Code(s): J44.9 - CHRONIC OBSTRUCTIVE PULMONARY DISEASE, UNSPECIFIED (3) CHF (congestive heart failure) Code(s): I50.9 - HEART FAILURE, UNSPECIFIED Qualifiers: Congestive heart failure type: diastolic Congestive heart failure chronicity: chronic Qualified Code(s): I50.32 - Chronic diastolic (congestive ) heart failure (4) Hypertension Code(s): I10 - ESSENTIAL (PRIMARY) HYPERTENSION (5) Chronic respiratory failure Code(s): J96.10 - CHRONIC RESPIRATORY FAILURE, UNSP W HYPOXIA OR HYPERCAPNIA (6) Anemia Code(s): D64.9 - ANEMIA, UNSPECIFIED Qualifiers: Anemia type: other cause Other causes of anemia: acute posthemorrhagic Qualified Code(s): D62 - Acute posthemorrhagic anemia Assessment/Plan (1) Fracture, hip Assessment/Plan: -patient s/p repair -much improved -agree with DVT PPx and PT Code(s): S72.009A - FRACTURE OF UNSP PART OF NECK OF UNSP FEMUR, INIT Qualifiers: Encounter type: initial encounter Fracture type: closed Laterality: left Qualified Code(s): S72.002A - Fracture of unspecified part of neck of left femur, initial encounter for closed fracture (2) COPD (chronic obstructive pulmonary disease) Assessment/Plan -much improved -pulmonary note reviewed -changed to prednisone -possible discharge tomorrow Code(s): J44.9 - CHRONIC OBSTRUCTIVE PULMONARY DISEASE, UNSPECIFIED (3) CHF (congestive heart failure) Assessment/Plan: -continue torsemide with hold parameters -cardiology following Code(s): I50.9 - HEART FAILURE, UNSPECIFIED Qualifiers: Congestive heart failure type: diastolic Congestive heart failure chronicity: chronic Qualified Code(s): I50.32 - Chronic diastolic (congestive ) heart failure (4) Hypertension Assessment/Plan: -controlled, with low normal this morning -continue torsemide and diltiazem Code(s): I10 - ESSENTIAL (PRIMARY) HYPERTENSION (5) Chronic respiratory failure Assessment/Plan: -continue oxygen Code(s): J96.10 - CHRONIC RESPIRATORY FAILURE, UNSP W HYPOXIA OR HYPERCAPNIA (6) ABLA -also with long standing anemia -transfuse 1 unit today -recheck tomorrow Dispo -possible discharge in next 24-48 hours pending H/H and breathing status
--- NOTE | 2017-04-30 15:58 | PN ---
Progress Note (short form) - Note Progress Note: Pt states mild improvement in pain today. Last Vital Signs Temp Pulse Resp BP Pulse Ox 98.7 F 108 H 18 116/72 98 04/30/17 05:13 04/30/17 14:00 04/30/17 14:00 04/30/17 14:00 04/30/17 12:02 AF VSS LLE dressings cdi intact ehl fhl ta g s sens int to LT 2+ DP Abnormal Lab Results 04/30/17 04/30/17 04/30/17 05:40 05:40 13:07 WBC 14.2 H RBC 3.19 L Hgb 7.7 L Hct 25.2 L MCV 78.9 L MCH 24.2 L MCHC 30.8 L Chloride 92 L Carbon Dioxide 39 H Anion Gap 7 L BUN 40 H Random Glucose 140 H Calcium 8.4 L Crossmatch See Detail ap POD 2 L femoral nail -pain control, minimize narcotics -dvt proph -oob/rehab -no evidence for op site infection despite elevated wbc -f.u tachycardia after transfusion Problem List - Problems (1) Fracture, hip Code(s): S72.009A - FRACTURE OF UNSP PART OF NECK OF UNSP FEMUR, INIT Qualifiers: Encounter type: initial encounter Fracture type: closed Laterality: left Qualified Code(s): S72.002A - Fracture of unspecified part of neck of left femur, initial encounter for closed fracture
[2017-04-30] MEDS: MONTELUKAST NA 10 MG TABLET PO SCH (21:53)
[2017-04-30] MEDS: ATORVASTATIN CA 10 MG TABLET (FP) PO SCH (21:53)
[2017-04-30] MEDS: LATANOPROST 0.005% OPHTH SOLN 2.5ML BOTTLE OU SCH (21:54)
[2017-05-01] MEDS: TORSEMIDE 20 MG TABLET (FP) PO SCH ×2 (06:46→15:12)
[2017-05-01 08:39] LABS: HEMATOCRIT 28.5 % (32.4-45.2); HEMOGLOBIN 8.8 GM/dL (10.7-15.3); LYMPH % 1.5 % (8-40); MCH 24.4 pg (25.7-33.7); MCHC 30.8 g/dl (32.0-36.0); MEAN CELL VOLUME 79.2 fl (80-96); MEAN PLT VOLUME 8.8 fl (7.5-11.1); MONO % 9.4 % (3.8-10.2); NEUT % 89.1 % (42.8-82.8); PLATELET COUNT 163 K/MM3 (134-434); RBC 3.61 M/mm3 (3.60-5.2); RDW 14.6 % (11.6-15.6); WHITE BLOOD COUNT 14.4 K/mm3 (4.0-10.0)
[2017-05-01 09:03] LABS: ANION GAP 6 (8-16); BLOOD UREA NITROGEN 35 mg/dL (7-18); CALCIUM 7.8 mg/dL (8.5-10.1); CHLORIDE 94 mmol/L (98-107); CO2 43 mmol/L (21-32); CREATININE 0.8 mg/dL (0.55-1.02); GLUCOSE,RANDOM 99 mg/dL (74-106); MAGNESIUM 2.2 mg/dL (1.8-2.4); PHOSPHOROUS 2.7 mg/dL (2.5-4.9); POTASSIUM 4.2 mmol/L (3.5-5.1); SODIUM 143 mmol/L (136-145)
[2017-05-01] MEDS: MULTIVITAMINS (DAILY MVI) TABLET (FP) PO SCH (10:21)
[2017-05-01] MEDS: predniSONE 20 MG TABLET (UD) PO SCH (10:21)
[2017-05-01] MEDS: BUDESONIDE/FORMETEROL FUMARATE 80/4.5 mcg INHALER IH SCH ×2 (10:21→21:43)
[2017-05-01] MEDS: TIOTROPIUM BROMIDE 18 MCG/INH (DEVICE W/ 5 CAPSULES) IH SCH (10:21)
[2017-05-01] MEDS: CALCIUM 500MG/VIT-D 200 UNITS COMBO TABLET (FP) PO SCH (10:21)
[2017-05-01] MEDS: PANTOPRAZOLE 40 MG TABLET (FP) PO SCH (10:21)
[2017-05-01] MEDS: POTASSIUM CHLORIDE TABS 20 MEQ TABLET.ER (FP) PO SCH (10:21)
[2017-05-01] MEDS: FERROUS SO4 325 MG TABLET (FP) PO SCH (10:21)
[2017-05-01] MEDS: ENOXAPARIN NA (PORCINE) 40 MG/0.4 ML DISP.SYRIN SQ SCH (10:22)
[2017-05-01] MEDS: LORATADINE 10 MG TABLET PO SCH (10:22)
--- NOTE | 2017-05-01 10:24 | PN ---
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
[2017-05-01] MEDS ORDERED: MAG HYDROX/AL HYDROX/SIMETH 30 ML UNIT-DOSE CUP PO PRN (10:34)
[2017-05-01] MEDS: POLYETHYLENE GLYCOL 3350 119 GM BTL PO PRN (10:42)
[2017-05-01] MEDS: oxyCODONE HCL 5 MG TABLET PO PRN (10:56)
[2017-05-01] MEDS: MINERAL OIL/PETROLAT/WATER TOPICAL CREAM 113 GM JAR TP SCH (11:02)
--- NOTE | 2017-05-01 14:57 | PN ---
Progress Note, Physician History of Present Illness: Feeling OK, breathing feeling better, hip feeling OK. Has not been having bowel movements since she had been hospitalized (just took some Miralax). - Current Medication List Current Medications: Active Medications Al Hydroxide/Mg Hydroxide (Mylanta Oral Suspension -) 30 ml PO Q6H PRN PRN Reason: DYSPEPSIA Albuterol Sulfate (Ventolin 0.083% Nebulizer Soln -) 1 amp NEB Q4H PRN PRN Reason: SHORT OF BREATH/WHEEZING Last Admin: 04/30/17 04:46 Dose: 1 amp Atorvastatin Calcium (Lipitor -) 10 mg PO HS [facility] Last Admin: 04/30/17 21:53 Dose: 10 mg Budesonide/Formoterol Fumarate (Symbicort 80/4.5mcg -) 2 puff IH BID [facility] Last Admin: 05/01/17 10:21 Dose: 2 puff Calcium Carbonate/Cholecalciferol (Os-Misha 500+D -) 1 tab PO DAILY [facility] Last Admin: 05/01/17 10:21 Dose: 1 tab Diltiazem HCl (Cardizem Cd -) 180 mg PO BID [facility] Last Admin: 05/01/17 10:21 Dose: 180 mg Enoxaparin Sodium (Lovenox -) 40 mg SQ DAILY [facility] Last Admin: 05/01/17 10:22 Dose: 40 mg Ferrous Sulfate (Feosol -) 325 mg PO DAILY [facility] Last Admin: 05/01/17 10:21 Dose: 325 mg Latanoprost (Xalatan 0.005% Eye Drops -) 1 drop OU HS [facility] Last Admin: 04/30/17 21:54 Dose: 1 drop Loratadine (Claritin -) 10 mg PO DAILY [facility] Last Admin: 05/01/17 10:22 Dose: 10 mg Montelukast Sodium (Singulair -) 10 mg PO HS [facility] Last Admin: 04/30/17 21:53 Dose: 10 mg Multi-Ingredient Lotion (Eucerin (Small Jar) -) 1 applic TP DAILY [facility] Last Admin: 05/01/17 11:02 Dose: 1 applic Multivitamins/Minerals/Vitamin C (Tab-A-Vit -) 1 tab PO DAILY [facility] Last Admin: 05/01/17 10:21 Dose: 1 tab Ondansetron HCl (Zofran Injection) 4 mg IVPUSH Q6H PRN PRN Reason: NAUSEA AND/OR VOMITING Last Admin: 04/28/17 16:03 Dose: 4 mg Oxycodone HCl (Roxicodone -) 5 mg PO Q4H PRN PRN Reason: PAIN LEVEL 6-10 Last Admin: 05/01/17 10:56 Dose: 5 mg Pantoprazole Sodium (Protonix -) 40 mg PO DAILY [facility] Last Admin: 05/01/17 10:21 Dose: 40 mg Polyethylene Glycol (Miralax (For Daily Use) -) 17 gm PO BID PRN PRN Reason: CONSTIPATION Last Admin: 05/01/17 10:42 Dose: 17 gm Potassium Chloride (K-Dur -) 20 meq PO DAILY [facility] Last Admin: 05/01/17 10:21 Dose: 20 meq Prednisone (Deltasone -) 20 mg PO DAILY [facility] Last Admin: 05/01/17 10:21 Dose: 20 mg Tiotropium [place] (Spiriva -) 1 puff IH DAILY [facility] Last Admin: 05/01/17 10:21 Dose: 1 inh Torsemide (Demadex -) 40 mg PO BIDLASIX [facility] Last Admin: 05/01/17 06:46 Dose: 40 mg - Objective Vital Signs: Vital Signs Temperature 99.1 F 05/01/17 10:00 Pulse Rate 91 H 05/01/17 10:00 Respiratory Rate 20 05/01/17 10:00 Blood Pressure 100/65 05/01/17 10:00 O2 Sat by Pulse Oximetry (%) 96 05/01/17 11:29 Constitutional: Yes: No Distress, Calm Eyes: Yes: Conjunctiva Clear, EOM Intact HENT: Yes: Atraumatic, Normocephalic Neck: Yes: Supple, Trachea Midline Cardiovascular: Yes: Regular Rate and Rhythm, S1, S2. No: Murmur Respiratory: Yes: Regular, CTA Bilaterally. No: Rales, Rhonchi, Wheezes Gastrointestinal: Yes: Normal Bowel Sounds, Soft. No: Distention, Tenderness Edema: No Neurological: Yes: Alert, Oriented Labs: CBC, BMP 05/01/17 07:45 05/01/17 07:45 INR, PTT INR 0.94 (0.82-1.09) 04/26/17 19:20 Assessment/Plan Current Active Problems Acute and chronic respiratory failure with hypercapnia (Acute) COPD HTN CHF Anemia Fracture, hip (Acute) -changed to prednisone, cont PT, d/c planning for STR
[2017-05-01] MEDS ORDERED: PT OWN MED DRAWER 7, Y5N ONE (21:41)
[2017-05-01] MEDS: ATORVASTATIN CA 10 MG TABLET (FP) PO SCH (21:43)
[2017-05-01] MEDS: MONTELUKAST NA 10 MG TABLET PO SCH (21:43)
[2017-05-01] MEDS: LATANOPROST 0.005% OPHTH SOLN 2.5ML BOTTLE OU SCH (21:43)
[2017-05-01] MEDS: ALBUTEROL SO4 0.083% IH SOL 2.5 MG/3 ML VIAL.NEB. NEB PRN (22:14)
[2017-05-02] MEDS ORDERED: ALENDRONATE SODIUM 35 MG PO SCH (00:26)
[2017-05-02] MEDS: TORSEMIDE 20 MG TABLET (FP) PO SCH ×2 (06:17→13:26)
[2017-05-02 08:23] LABS: EOS % 0.3 % (0-4.5); HEMOGLOBIN 9.1 GM/dL (10.7-15.3); LYMPH % 5.7 % (8-40); MCH 24.3 pg (25.7-33.7); MCHC 30.3 g/dl (32.0-36.0); MEAN CELL VOLUME 80.1 fl (80-96); MEAN PLT VOLUME 8.8 fl (7.5-11.1); MONO % 13.8 % (3.8-10.2); NEUT % 80.2 % (42.8-82.8); PLATELET COUNT 164 K/MM3 (134-434); RBC 3.74 M/mm3 (3.60-5.2); RDW 14.9 % (11.6-15.6); WHITE BLOOD COUNT 11.3 K/mm3 (4.0-10.0)
[2017-05-02 09:13] LABS: ALBUMIN 2.7 g/dl (3.4-5.0); ANION GAP 8 (8-16); BLOOD UREA NITROGEN 33 mg/dL (7-18); CHLORIDE 90 mmol/L (98-107); CO2 43 mmol/L (21-32); GLUCOSE,RANDOM 79 mg/dL (74-106); POTASSIUM 4.4 mmol/L (3.5-5.1); SODIUM 141 mmol/L (136-145)
[2017-05-02 09:18] LABS: ALK PHOS 83 U/L (45-117); BILIRUBIN,TOTAL 0.5 mg/dL (0.2-1.0); CREATININE 0.8 mg/dL (0.55-1.02); SGOT/AST 158 U/L (15-37); TOT PROT 5.4 g/dl (6.4-8.2)
[2017-05-02 09:19] LABS: SGPT/ALT 593 U/L (12-78)
[2017-05-02] MEDS: ENOXAPARIN NA (PORCINE) 40 MG/0.4 ML DISP.SYRIN SQ SCH (09:36)
[2017-05-02] MEDS: TIOTROPIUM BROMIDE 18 MCG/INH (DEVICE W/ 5 CAPSULES) IH SCH (09:36)
[2017-05-02] MEDS: predniSONE 20 MG TABLET (UD) PO SCH (09:37)
[2017-05-02] MEDS: LORATADINE 10 MG TABLET PO SCH (09:37)
[2017-05-02] MEDS: PANTOPRAZOLE 40 MG TABLET (FP) PO SCH (09:37)
[2017-05-02] MEDS: MULTIVITAMINS (DAILY MVI) TABLET (FP) PO SCH (09:37)
[2017-05-02] MEDS: FERROUS SO4 325 MG TABLET (FP) PO SCH (09:37)
[2017-05-02] MEDS: POTASSIUM CHLORIDE TABS 20 MEQ TABLET.ER (FP) PO SCH (09:38)
[2017-05-02] MEDS: CALCIUM 500MG/VIT-D 200 UNITS COMBO TABLET (FP) PO SCH (09:38)
[2017-05-02] MEDS: BUDESONIDE/FORMETEROL FUMARATE 80/4.5 mcg INHALER IH SCH ×2 (09:39→21:27)
[2017-05-02] MEDS: POLYETHYLENE GLYCOL 3350 119 GM BTL PO PRN (09:40)
[2017-05-02] MEDS: MINERAL OIL/PETROLAT/WATER TOPICAL CREAM 113 GM JAR TP SCH (09:41)
--- NOTE | 2017-05-02 11:03 | PN ---
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
--- NOTE | 2017-05-02 11:19 | PN ---
Progress Note, Physician History of Present Illness: Feeling OK today, nurse noting patient c/o mouth soreness and thrush was seen. Still did not have bowel movement yet. - Current Medication List Current Medications: Active Medications Al Hydroxide/Mg Hydroxide (Mylanta Oral Suspension -) 30 ml PO Q6H PRN PRN Reason: DYSPEPSIA Albuterol Sulfate (Ventolin 0.083% Nebulizer Soln -) 1 amp NEB Q4H PRN PRN Reason: SHORT OF BREATH/WHEEZING Last Admin: 05/01/17 22:14 Dose: 1 amp Atorvastatin Calcium (Lipitor -) 10 mg PO HS [facility] Last Admin: 05/01/17 21:43 Dose: 10 mg Budesonide/Formoterol Fumarate (Symbicort 80/4.5mcg -) 2 puff IH BID [facility] Last Admin: 05/02/17 09:39 Dose: 2 puff Calcium Carbonate/Cholecalciferol (Os-Misha 500+D -) 1 tab PO DAILY [facility] Last Admin: 05/02/17 09:38 Dose: 1 tab Diltiazem HCl (Cardizem Cd -) 180 mg PO BID [facility] Last Admin: 05/02/17 09:38 Dose: 180 mg Enoxaparin Sodium (Lovenox -) 40 mg SQ DAILY [facility] Last Admin: 05/02/17 09:36 Dose: 40 mg Ferrous Sulfate (Feosol -) 325 mg PO DAILY [facility] Last Admin: 05/02/17 09:37 Dose: 325 mg Latanoprost (Xalatan 0.005% Eye Drops -) 1 drop OU HS [facility] Last Admin: 05/01/17 21:43 Dose: 1 drop Loratadine (Claritin -) 10 mg PO DAILY [facility] Last Admin: 05/02/17 09:37 Dose: 10 mg Montelukast Sodium (Singulair -) 10 mg PO HS [facility] Last Admin: 05/01/17 21:43 Dose: 10 mg Multi-Ingredient Lotion (Eucerin (Small Jar) -) 1 applic TP DAILY [facility] Last Admin: 05/02/17 09:41 Dose: 1 applic Multivitamins/Minerals/Vitamin C (Tab-A-Vit -) 1 tab PO DAILY [facility] Last Admin: 05/02/17 09:37 Dose: 1 tab Ondansetron HCl (Zofran Injection) 4 mg IVPUSH Q6H PRN PRN Reason: NAUSEA AND/OR VOMITING Last Admin: 04/28/17 16:03 Dose: 4 mg Oxycodone HCl (Roxicodone -) 5 mg PO Q4H PRN PRN Reason: PAIN LEVEL 6-10 Last Admin: 05/01/17 10:56 Dose: 5 mg Pantoprazole Sodium (Protonix -) 40 mg PO DAILY [facility] Last Admin: 05/02/17 09:37 Dose: 40 mg Polyethylene Glycol (Miralax (For Daily Use) -) 17 gm PO BID PRN PRN Reason: CONSTIPATION Last Admin: 05/02/17 09:40 Dose: 17 gm Potassium Chloride (K-Dur -) 20 meq PO DAILY [facility] Last Admin: 05/02/17 09:38 Dose: 20 meq Prednisone (Deltasone -) 20 mg PO DAILY [facility] Last Admin: 05/02/17 09:37 Dose: 20 mg Tiotropium [place] (Spiriva -) 1 puff IH DAILY [facility] Last Admin: 05/02/17 09:36 Dose: 1 inh Torsemide (Demadex -) 40 mg PO BIDLASIX [facility] Last Admin: 05/02/17 06:17 Dose: 40 mg - Objective Vital Signs: Vital Signs Temperature 97.7 F 05/02/17 06:00 Pulse Rate 98 H 05/02/17 11:03 Respiratory Rate 18 05/02/17 06:00 Blood Pressure 123/76 05/02/17 06:00 O2 Sat by Pulse Oximetry (%) 98 05/02/17 11:10 Constitutional: Yes: No Distress, Calm Neck: Yes: Supple, Trachea Midline Cardiovascular: Yes: Regular Rate and Rhythm, S1, S2. No: Murmur Respiratory: Yes: Regular, CTA Bilaterally Gastrointestinal: Yes: Normal Bowel Sounds, Soft, Distention (softly) Extremities: Yes: Other (surgical dressign on left hip with serosanguinous fluid ) Edema: No Neurological: Yes: Alert, Oriented Labs: CBC, BMP 05/02/17 07:17 05/02/17 07:17 INR, PTT INR 0.94 (0.82-1.09) 04/26/17 19:20 Assessment/Plan Current Active Problems Acute and chronic respiratory failure with hypercapnia (Acute) COPD HTN CHF Anemia Fracture, hip (Acute) elevated LFT's -LFT's elevated on labwork today. No abd pain (other than feeling constipated) and bilirubin normal. May reflect congestive hepatopathy following her surgery , as history of CHF -will repeat and check liver US as well, will also hold lipitor for now -cont post-op care for now/ physical therapy -advised to cont Miralax twice a day until bowel movement
[2017-05-02] MEDS: NYSTATIN 500,000 UNITS/5 ML SUSPENSION PO SCH ×2 (13:25→17:11)
[2017-05-02] MEDS ORDERED: PT OWN MED DRAWER 7, Y5N ONE ×2 (17:10→21:23)
[2017-05-02] MEDS: MONTELUKAST NA 10 MG TABLET PO SCH (21:27)
[2017-05-02] MEDS: LATANOPROST 0.005% OPHTH SOLN 2.5ML BOTTLE OU SCH (21:27)
[2017-05-02] MEDS: ALBUTEROL SO4 0.083% IH SOL 2.5 MG/3 ML VIAL.NEB. NEB PRN (21:57)
[2017-05-03] MEDS: NYSTATIN 500,000 UNITS/5 ML SUSPENSION PO SCH ×5 (00:10→23:10)
[2017-05-03] MEDS: TORSEMIDE 20 MG TABLET (FP) PO SCH ×2 (06:14→17:12)
[2017-05-03 08:24] LABS: BASO % 0.1 % (0-2.0); EOS % 1.3 % (0-4.5); HEMATOCRIT 31.3 % (32.4-45.2); HEMOGLOBIN 9.5 GM/dL (10.7-15.3); MCH 24.5 pg (25.7-33.7); MCHC 30.5 g/dl (32.0-36.0); MEAN CELL VOLUME 80.2 fl (80-96); MEAN PLT VOLUME 9.1 fl (7.5-11.1); MONO % 10.6 % (3.8-10.2); PLATELET COUNT 187 K/MM3 (134-434); RDW 15.1 % (11.6-15.6); WHITE BLOOD COUNT 13.7 K/mm3 (4.0-10.0)
[2017-05-03 08:35] LABS: ALBUMIN 2.8 g/dl (3.4-5.0); BILIRUBIN,DIRECT < 0.2 mg/dL (0.0-0.2); BILIRUBIN,TOTAL 0.6 mg/dL (0.2-1.0); BLOOD UREA NITROGEN 29 mg/dL (7-18); CALCIUM 7.8 mg/dL (8.5-10.1); CHLORIDE 89 mmol/L (98-107); CREATININE 0.7 mg/dL (0.55-1.02); GLUCOSE,RANDOM 74 mg/dL (74-106); POTASSIUM 4.2 mmol/L (3.5-5.1); SGOT/AST 70 U/L (15-37); SODIUM 139 mmol/L (136-145); TOT PROT 5.5 g/dl (6.4-8.2)
[2017-05-03 08:36] LABS: ALK PHOS 92 U/L (45-117)
[2017-05-03 08:46] LABS: SGPT/ALT 438 U/L (12-78)
[2017-05-03] MEDS ORDERED: PT OWN MED DRAWER 7, Y5N ONE ×2 (09:21→21:54)
[2017-05-03] MEDS: POTASSIUM CHLORIDE TABS 20 MEQ TABLET.ER (FP) PO SCH (09:56)
[2017-05-03] MEDS: ENOXAPARIN NA (PORCINE) 40 MG/0.4 ML DISP.SYRIN SQ SCH (09:56)
[2017-05-03] MEDS: MULTIVITAMINS (DAILY MVI) TABLET (FP) PO SCH (09:56)
[2017-05-03] MEDS: PANTOPRAZOLE 40 MG TABLET (FP) PO SCH (09:56)
[2017-05-03] MEDS: predniSONE 20 MG TABLET (UD) PO SCH (09:56)
[2017-05-03] MEDS: MINERAL OIL/PETROLAT/WATER TOPICAL CREAM 113 GM JAR TP SCH (09:56)
[2017-05-03] MEDS: CALCIUM 500MG/VIT-D 200 UNITS COMBO TABLET (FP) PO SCH (09:56)
[2017-05-03] MEDS: LORATADINE 10 MG TABLET PO SCH (09:56)
[2017-05-03] MEDS: FERROUS SO4 325 MG TABLET (FP) PO SCH (09:56)
[2017-05-03] MEDS: BUDESONIDE/FORMETEROL FUMARATE 80/4.5 mcg INHALER IH SCH ×2 (09:57→21:57)
[2017-05-03 10:11] LABS: ANION GAP 3 (8-16); CO2 47 mmol/L (21-32)
--- NOTE | 2017-05-03 10:37 | PN ---
Progress Note, Physician History of Present Illness: Feeling some pressure in right upper quadrant. Had US this morning showing right hydronephrosis. Still has not had bowel moveent since admission. Breathing has been feeling OK. LFT's improved today. Mouth still hurting ( started on nystatin solution) - Current Medication List Current Medications: Active Medications Al Hydroxide/Mg Hydroxide (Mylanta Oral Suspension -) 30 ml PO Q6H PRN PRN Reason: DYSPEPSIA Last Admin: 05/03/17 06:40 Dose: 30 ml Albuterol Sulfate (Ventolin 0.083% Nebulizer Soln -) 1 amp NEB Q4H PRN PRN Reason: SHORT OF BREATH/WHEEZING Last Admin: 05/02/17 21:57 Dose: 1 amp Budesonide/Formoterol Fumarate (Symbicort 80/4.5mcg -) 2 puff IH BID [facility] Last Admin: 05/03/17 09:57 Dose: 2 puff Calcium Carbonate/Cholecalciferol (Os-Misha 500+D -) 1 tab PO DAILY [facility] Last Admin: 05/03/17 09:56 Dose: 1 tab Diltiazem HCl (Cardizem Cd -) 180 mg PO BID [facility] Last Admin: 05/03/17 09:55 Dose: 180 mg Enoxaparin Sodium (Lovenox -) 40 mg SQ DAILY [facility] Last Admin: 05/03/17 09:56 Dose: 40 mg Ferrous Sulfate (Feosol -) 325 mg PO DAILY [facility] Last Admin: 05/03/17 09:56 Dose: 325 mg Latanoprost (Xalatan 0.005% Eye Drops -) 1 drop OU HS [facility] Last Admin: 05/02/17 21:27 Dose: 1 drop Loratadine (Claritin -) 10 mg PO DAILY [facility] Last Admin: 05/03/17 09:56 Dose: 10 mg Montelukast Sodium (Singulair -) 10 mg PO HS [facility] Last Admin: 05/02/17 21:27 Dose: 10 mg Multi-Ingredient Lotion (Eucerin (Small Jar) -) 1 applic TP DAILY [facility] Last Admin: 05/03/17 09:56 Dose: 1 applic Multivitamins/Minerals/Vitamin C (Tab-A-Vit -) 1 tab PO DAILY [facility] Last Admin: 05/03/17 09:56 Dose: 1 tab Nystatin (Nystatin Oral Suspension -) 500,000 units PO Q6HPO [facility] Last Admin: 05/03/17 06:14 Dose: 500,000 units Ondansetron HCl (Zofran Injection) 4 mg IVPUSH Q6H PRN PRN Reason: NAUSEA AND/OR VOMITING Last Admin: 04/28/17 16:03 Dose: 4 mg Oxycodone HCl (Roxicodone -) 5 mg PO Q4H PRN PRN Reason: PAIN LEVEL 6-10 Last Admin: 05/01/17 10:56 Dose: 5 mg Pantoprazole Sodium (Protonix -) 40 mg PO DAILY [facility] Last Admin: 05/03/17 09:56 Dose: 40 mg Polyethylene Glycol (Miralax (For Daily Use) -) 17 gm PO BID PRN PRN Reason: CONSTIPATION Last Admin: 05/02/17 09:40 Dose: 17 gm Potassium Chloride (K-Dur -) 20 meq PO DAILY [facility] Last Admin: 05/03/17 09:56 Dose: 20 meq Prednisone (Deltasone -) 20 mg PO DAILY [facility] Last Admin: 05/03/17 09:56 Dose: 20 mg Tiotropium [place] (Spiriva -) 1 puff IH DAILY [facility] Last Admin: 05/02/17 09:36 Dose: 1 inh Torsemide (Demadex -) 40 mg PO BIDLASIX [facility] Last Admin: 05/03/17 06:14 Dose: 40 mg - Objective Vital Signs: Vital Signs Temperature 98.3 F 05/03/17 09:55 Pulse Rate 110 H 05/03/17 09:55 Respiratory Rate 19 05/03/17 09:55 Blood Pressure 103/62 05/03/17 09:55 O2 Sat by Pulse Oximetry (%) 98 05/02/17 21:00 Constitutional: Yes: No Distress, Calm Neck: Yes: Supple, Trachea Midline Cardiovascular: Yes: Regular Rate and Rhythm, S1, S2. No: Murmur Respiratory: Yes: Regular, CTA Bilaterally. No: Rales, Rhonchi, Wheezes Gastrointestinal: Yes: Normal Bowel Sounds, Soft, Distention (mild, soft). No: Tenderness Edema: No Neurological: Yes: Alert, Oriented Labs: CBC, BMP 05/03/17 06:30 05/03/17 06:30 INR, PTT INR 0.94 (0.82-1.09) 04/26/17 19:20 Assessment/Plan Current Active Problems Acute and chronic respiratory failure with hypercapnia (Acute) COPD HTN CHF Anemia Fracture, hip (Acute) elevated LFT's -will check CT abd as still no bowel movement and now hydronephrosis on US -cont PT for hip fracture/ ORIF
--- NOTE | 2017-05-03 10:46 | PN ---
Progress Note (short form) - Note Progress Note: PULMONARY AWAKE/ALERT/POST-OP DAY #6 SUBJECTIVE IMPROVEMENT IN BREATHING NO BM/MILD ABD DISCOMFORT REQUIRED NIPPV POST-OP DUE TO CO2 RETENTION/ PRESENTLY ON N/C O2 OOB TO CHAIR VSS/AFEBRILE ANICTERIC DIMINISHED BREATH SOUNDS B/L S1S2 BS+ S/P LEFT GAMMA NAIL HIP MEDS/LABS/NOTES/IMAGES REVIEWED US NOTED/LFT'S ELEVATED BUT DOWN TRENDING IMP COPD WITH CHRONIC HYPOXEMIC RESPIRATORY FAILURE ON HOME O2 ACUTE ON CHRONIC HYPERCAPNEIC RESPIRATORY FAILURE LEFT FEMORAL FX S/P MECHANICAL FALL S/P GAMMA NAIL LEFT HIP HTN CONSTIPATION/HYDRONEPHROSIS PLAN IV STEROIDS CHANGED TO PREDNISONE O2/NIPPV NEEDED INHALED BRONCHODILATORS CT ABD/PELVIS PENDING/CONSIDER GI EVAL DVT PROPHYLAXSIS WILL ULTIMATELY NEED SNF REHAB WILL FOLLOW Kathy WASHINGTON MD
[2017-05-03] MEDS: TIOTROPIUM BROMIDE 18 MCG/INH (DEVICE W/ 5 CAPSULES) IH SCH (12:53)
[2017-05-03] MEDS: MONTELUKAST NA 10 MG TABLET PO SCH (21:57)
[2017-05-03] MEDS: LATANOPROST 0.005% OPHTH SOLN 2.5ML BOTTLE OU SCH (21:57)
[2017-05-04] MEDS: TORSEMIDE 20 MG TABLET (FP) PO SCH ×2 (05:47→14:05)
[2017-05-04] MEDS: NYSTATIN 500,000 UNITS/5 ML SUSPENSION PO SCH ×3 (05:47→17:47)
[2017-05-04 09:17] LABS: BASO % 0.1 % (0-2.0); HEMATOCRIT 32.3 % (32.4-45.2); HEMOGLOBIN 9.8 GM/dL (10.7-15.3); LYMPH % 6.1 % (8-40); MCH 24.2 pg (25.7-33.7); MCHC 30.3 g/dl (32.0-36.0); MEAN PLT VOLUME 9.3 fl (7.5-11.1); MONO % 8.5 % (3.8-10.2); NEUT % 83.3 % (42.8-82.8); PLATELET COUNT 202 K/MM3 (134-434); RBC 4.03 M/mm3 (3.60-5.2); RDW 15.7 % (11.6-15.6); WHITE BLOOD COUNT 14.1 K/mm3 (4.0-10.0)
[2017-05-04] MEDS: MULTIVITAMINS (DAILY MVI) TABLET (FP) PO SCH (09:46)
[2017-05-04] MEDS: TIOTROPIUM BROMIDE 18 MCG/INH (DEVICE W/ 5 CAPSULES) IH SCH (09:46)
[2017-05-04] MEDS: predniSONE 20 MG TABLET (UD) PO SCH (09:46)
[2017-05-04] MEDS: BUDESONIDE/FORMETEROL FUMARATE 80/4.5 mcg INHALER IH SCH ×2 (09:46→21:40)
[2017-05-04] MEDS: LORATADINE 10 MG TABLET PO SCH (09:46)
[2017-05-04] MEDS: POTASSIUM CHLORIDE TABS 20 MEQ TABLET.ER (FP) PO SCH (09:47)
[2017-05-04] MEDS: CALCIUM 500MG/VIT-D 200 UNITS COMBO TABLET (FP) PO SCH (09:47)
[2017-05-04] MEDS: MINERAL OIL/PETROLAT/WATER TOPICAL CREAM 113 GM JAR TP SCH (09:47)
[2017-05-04] MEDS: PANTOPRAZOLE 40 MG TABLET (FP) PO SCH (09:47)
[2017-05-04] MEDS: FERROUS SO4 325 MG TABLET (FP) PO SCH (09:47)
[2017-05-04] MEDS: ENOXAPARIN NA (PORCINE) 40 MG/0.4 ML DISP.SYRIN SQ SCH (09:47)
[2017-05-04 10:08] LABS: CHLORIDE 87 mmol/L (98-107); POTASSIUM 3.7 mmol/L (3.5-5.1); SODIUM 138 mmol/L (136-145)
[2017-05-04 10:12] LABS: ALBUMIN 2.9 g/dl (3.4-5.0); ALK PHOS 85 U/L (45-117); BILIRUBIN,TOTAL 0.7 mg/dL (0.2-1.0); BLOOD UREA NITROGEN 20 mg/dL (7-18); CALCIUM 8.4 mg/dL (8.5-10.1); CREATININE 0.8 mg/dL (0.55-1.02); GLUCOSE,RANDOM 106 mg/dL (74-106); SGOT/AST 40 U/L (15-37); SGPT/ALT 311 U/L (12-78); TOT PROT 5.5 g/dl (6.4-8.2)
[2017-05-04 11:22] LABS: ANION GAP 1 (8-16); CO2 50 mmol/L (21-32)
--- NOTE | 2017-05-04 12:35 | PN ---
Progress Note, Physician Chief Complaint: Ms Hadley complains of abdominal discomfort. Says her breathing is improved. no chest pain. - Current Medication List Current Medications: Active Medications Al Hydroxide/Mg Hydroxide (Mylanta Oral Suspension -) 30 ml PO Q6H PRN PRN Reason: DYSPEPSIA Last Admin: 05/03/17 06:40 Dose: 30 ml Albuterol Sulfate (Ventolin 0.083% Nebulizer Soln -) 1 amp NEB Q4H PRN PRN Reason: SHORT OF BREATH/WHEEZING Last Admin: 05/02/17 21:57 Dose: 1 amp Budesonide/Formoterol Fumarate (Symbicort 80/4.5mcg -) 2 puff IH BID [facility] Last Admin: 05/04/17 09:46 Dose: 2 puff Calcium Carbonate/Cholecalciferol (Os-Misha 500+D -) 1 tab PO DAILY [facility] Last Admin: 05/04/17 09:47 Dose: 1 tab Diltiazem HCl (Cardizem Cd -) 180 mg PO BID [facility] Last Admin: 05/04/17 09:46 Dose: 180 mg Enoxaparin Sodium (Lovenox -) 40 mg SQ DAILY [facility] Last Admin: 05/04/17 09:47 Dose: 40 mg Ferrous Sulfate (Feosol -) 325 mg PO DAILY [facility] Last Admin: 05/04/17 09:47 Dose: 325 mg Latanoprost (Xalatan 0.005% Eye Drops -) 1 drop OU HS [facility] Last Admin: 05/03/17 21:57 Dose: 1 drop Loratadine (Claritin -) 10 mg PO DAILY [facility] Last Admin: 05/04/17 09:46 Dose: 10 mg Montelukast Sodium (Singulair -) 10 mg PO HS [facility] Last Admin: 05/03/17 21:57 Dose: 10 mg Multi-Ingredient Lotion (Eucerin (Small Jar) -) 1 applic TP DAILY [facility] Last Admin: 05/04/17 09:47 Dose: 1 applic Multivitamins/Minerals/Vitamin C (Tab-A-Vit -) 1 tab PO DAILY [facility] Last Admin: 05/04/17 09:46 Dose: 1 tab Nystatin (Nystatin Oral Suspension -) 500,000 units PO Q6HPO [facility] Last Admin: 05/04/17 12:21 Dose: 500,000 units Ondansetron HCl (Zofran Injection) 4 mg IVPUSH Q6H PRN PRN Reason: NAUSEA AND/OR VOMITING Last Admin: 04/28/17 16:03 Dose: 4 mg Oxycodone HCl (Roxicodone -) 5 mg PO Q4H PRN PRN Reason: PAIN LEVEL 6-10 Last Admin: 05/01/17 10:56 Dose: 5 mg Pantoprazole Sodium (Protonix -) 40 mg PO DAILY [facility] Last Admin: 05/04/17 09:47 Dose: 40 mg Potassium Chloride (K-Dur -) 20 meq PO DAILY [facility] Last Admin: 05/04/17 09:47 Dose: 20 meq Prednisone (Deltasone -) 20 mg PO DAILY [facility] Last Admin: 05/04/17 09:46 Dose: 20 mg Tiotropium [place] (Spiriva -) 1 puff IH DAILY [facility] Last Admin: 05/04/17 09:46 Dose: 1 inh Torsemide (Demadex -) 40 mg PO BIDLASIX [facility] Last Admin: 05/04/17 05:47 Dose: 40 mg - Objective Vital Signs: Vital Signs Temperature 37.0 C 05/04/17 05:35 Pulse Rate 103 H 05/04/17 10:52 Respiratory Rate 18 05/04/17 09:00 Blood Pressure 107/59 05/04/17 09:00 O2 Sat by Pulse Oximetry (%) 98 05/04/17 10:52 Constitutional: Yes: Well Nourished, No Distress, Calm Cardiovascular: Yes: Regular Rate and Rhythm. No: Gallop, Murmur, Rub Respiratory: Yes: Regular, CTA Bilaterally. No: Rales, Rhonchi, Wheezes Gastrointestinal: Yes: Normal Bowel Sounds, Soft, Distention, Tenderness Extremities: Yes: WNL Edema: No Labs: CBC, BMP 05/04/17 08:11 05/04/17 08:11 INR, PTT INR 0.94 (0.82-1.09) 04/26/17 19:20 Problem List - Problems (1) Fracture, hip Code(s): S72.009A - FRACTURE OF UNSP PART OF NECK OF UNSP FEMUR, INIT Qualifiers: Encounter type: initial encounter Fracture type: closed Laterality: left Qualified Code(s): S72.002A - Fracture of unspecified part of neck of left femur, initial encounter for closed fracture (2) COPD (chronic obstructive pulmonary disease) Code(s): J44.9 - CHRONIC OBSTRUCTIVE PULMONARY DISEASE, UNSPECIFIED (3) CHF (congestive heart failure) Code(s): I50.9 - HEART FAILURE, UNSPECIFIED Qualifiers: Congestive heart failure type: diastolic Congestive heart failure chronicity: chronic Qualified Code(s): I50.32 - Chronic diastolic (congestive ) heart failure (4) Hypertension Code(s): I10 - ESSENTIAL (PRIMARY) HYPERTENSION (5) Chronic respiratory failure Code(s): J96.10 - CHRONIC RESPIRATORY FAILURE, UNSP W HYPOXIA OR HYPERCAPNIA (6) Anemia Code(s): D64.9 - ANEMIA, UNSPECIFIED Qualifiers: Anemia type: other cause Other causes of anemia: acute posthemorrhagic Qualified Code(s): D62 - Acute posthemorrhagic anemia Assessment/Plan (1) Fracture, hip Assessment/Plan: -stable -continue PT and DVT PPx Code(s): S72.009A - FRACTURE OF UNSP PART OF NECK OF UNSP FEMUR, INIT Qualifiers: Encounter type: initial encounter Fracture type: closed Laterality: left Qualified Code(s): S72.002A - Fracture of unspecified part of neck of left femur, initial encounter for closed fracture (2) COPD (chronic obstructive pulmonary disease) Assessment/Plan -suspect close to baseline -continue prednisone and bronchodilators Code(s): J44.9 - CHRONIC OBSTRUCTIVE PULMONARY DISEASE, UNSPECIFIED (3) CHF (congestive heart failure) Assessment/Plan: -continue torsemide with hold parameters -cardiology following Code(s): I50.9 - HEART FAILURE, UNSPECIFIED Qualifiers: Congestive heart failure type: diastolic Congestive heart failure chronicity: chronic Qualified Code(s): I50.32 - Chronic diastolic (congestive ) heart failure (4) Hypertension Assessment/Plan: -controlled -continue torsemide and diltiazem Code(s): I10 - ESSENTIAL (PRIMARY) HYPERTENSION (5) Chronic respiratory failure Assessment/Plan: -continue oxygen Code(s): J96.10 - CHRONIC RESPIRATORY FAILURE, UNSP W HYPOXIA OR HYPERCAPNIA (6) ABLA -stable (7) Severe constipation -seen on CT scan -schedule miralax and colace -enema (8) Hydronephrosis -consult urology
--- NOTE | 2017-05-04 12:56 | PN ---
Progress Note (short form) - Note Progress Note: NAD on 3 L NC O2. Overall breathing improving. No CP or SOB. Intake & Output 05/01/17 05/02/17 05/03/17 05/04/17 23:59 23:59 23:59 23:59 Intake Total 675 240 300 Balance 675 240 300 Weight 119 lb 5 oz 119 lb 9 oz 117 lb 5 oz 120 lb Last Vital Signs Temp Pulse Resp BP Pulse Ox 98.6 F 103 H 18 107/59 98 05/04/17 05:35 05/04/17 10:52 05/04/17 09:00 05/04/17 09:00 05/04/17 10:52 Active Medications Al Hydroxide/Mg Hydroxide (Mylanta Oral Suspension -) 30 ml PO Q6H PRN PRN Reason: DYSPEPSIA Last Admin: 05/03/17 06:40 Dose: 30 ml Albuterol Sulfate (Ventolin 0.083% Nebulizer Soln -) 1 amp NEB Q4H PRN PRN Reason: SHORT OF BREATH/WHEEZING Last Admin: 05/02/17 21:57 Dose: 1 amp Budesonide/Formoterol Fumarate (Symbicort 80/4.5mcg -) 2 puff IH BID [facility] Last Admin: 05/04/17 09:46 Dose: 2 puff Calcium Carbonate/Cholecalciferol (Os-Misha 500+D -) 1 tab PO DAILY [facility] Last Admin: 05/04/17 09:47 Dose: 1 tab Diltiazem HCl (Cardizem Cd -) 180 mg PO BID [facility] Last Admin: 05/04/17 09:46 Dose: 180 mg Docusate Sodium (Colace -) 100 mg PO TID [facility] Enoxaparin Sodium (Lovenox -) 40 mg SQ DAILY [facility] Last Admin: 05/04/17 09:47 Dose: 40 mg Ferrous Sulfate (Feosol -) 325 mg PO DAILY [facility] Last Admin: 05/04/17 09:47 Dose: 325 mg Latanoprost (Xalatan 0.005% Eye Drops -) 1 drop OU HS [facility] Last Admin: 05/03/17 21:57 Dose: 1 drop Loratadine (Claritin -) 10 mg PO DAILY [facility] Last Admin: 05/04/17 09:46 Dose: 10 mg Montelukast Sodium (Singulair -) 10 mg PO HS [facility] Last Admin: 05/03/17 21:57 Dose: 10 mg Multi-Ingredient Lotion (Eucerin (Small Jar) -) 1 applic TP DAILY [facility] Last Admin: 05/04/17 09:47 Dose: 1 applic Multivitamins/Minerals/Vitamin C (Tab-A-Vit -) 1 tab PO DAILY [facility] Last Admin: 05/04/17 09:46 Dose: 1 tab Nystatin (Nystatin Oral Suspension -) 500,000 units PO Q6HPO [facility] Last Admin: 05/04/17 12:21 Dose: 500,000 units Ondansetron HCl (Zofran Injection) 4 mg IVPUSH Q6H PRN PRN Reason: NAUSEA AND/OR VOMITING Last Admin: 04/28/17 16:03 Dose: 4 mg Oxycodone HCl (Roxicodone -) 5 mg PO Q4H PRN PRN Reason: PAIN LEVEL 6-10 Last Admin: 05/01/17 10:56 Dose: 5 mg Pantoprazole Sodium (Protonix -) 40 mg PO DAILY [facility] Last Admin: 05/04/17 09:47 Dose: 40 mg Polyethylene Glycol (Miralax (For Daily Use) -) 17 gm PO BID [facility] Potassium Chloride (K-Dur -) 20 meq PO DAILY [facility] Last Admin: 05/04/17 09:47 Dose: 20 meq Prednisone (Deltasone -) 20 mg PO DAILY [facility] Last Admin: 05/04/17 09:46 Dose: 20 mg Tiotropium [place] (Spiriva -) 1 puff IH DAILY [facility] Last Admin: 05/04/17 09:46 Dose: 1 inh Torsemide (Demadex -) 40 mg PO BIDLASIX [facility] Last Admin: 05/04/17 05:47 Dose: 40 mg Constitutional: Yes: No Distress Neck: Yes: Supple, Trachea Midline Cardiovascular: Yes: Regular Rate and Rhythm, S1, S2. No: Murmur Respiratory: Yes: Clear. No: Rales, Rhonchi, Wheezes Gastrointestinal: Yes: Normal Bowel Sounds, Soft, Distention (mild, soft). No: Tenderness Edema: No Neurological: Yes: Alert, Oriented Labs: Laboratory Results - last 24 hr 04/30/17 05/04/17 05/04/17 13:07 08:11 08:11 WBC 14.1 H RBC 4.03 Hgb 9.8 L Hct 32.3 L MCV 80.0 MCH 24.2 L MCHC 30.3 L RDW 15.7 H Plt Count 202 MPV 9.3 Neutrophils % 83.3 H Lymphocytes % 6.1 L Monocytes % 8.5 Eosinophils % 2.0 Basophils % 0.1 Sodium 138 Potassium 3.7 Chloride 87 L Carbon Dioxide 50 H Anion Gap 1 L BUN 20 H D Creatinine 0.8 Creat Clearance w eGFR > 60 Random Glucose 106 D Calcium 8.4 L Total Bilirubin 0.7 AST 40 H D ALT 311 H D Alkaline Phosphatase 85 Total Protein 5.5 L Albumin 2.9 L Blood Type O POSITIVE Antibody Screen Negative Crossmatch See Detail Assessment/Plan Acute and chronic respiratory failure with hypercapnia COPD HTN CHF Anemia Fracture, hip (Acute) Elevated LFT's Symbicort BID Spiriva Prednisone Lovenox O2 as needed Sleep Apnea workup after discharge BD [place] PRN Dr Carranza
[2017-05-04] MEDS: POLYETHYLENE GLYCOL 3350 119 GM BTL PO SCH ×2 (14:03→21:39)
[2017-05-04] MEDS: DOCUSATE SODIUM 100 MG CAPSULE (FP) PO SCH ×2 (14:03→21:40)
[2017-05-04] MEDS ORDERED: MINERAL OIL ENEMA 133 ML ENEMA PR ONE (17:00)
--- NOTE | 2017-05-04 18:43 | PN ---
Progress Note, Physician Chief Complaint: sob History of Present Illness: feels modestly sob, not her usual baseline. worse when lays flat. no cp/pressure no leg swelling no palpitations - Current Medication List Current Medications: Active Medications Al Hydroxide/Mg Hydroxide (Mylanta Oral Suspension -) 30 ml PO Q6H PRN PRN Reason: DYSPEPSIA Last Admin: 05/03/17 06:40 Dose: 30 ml Albuterol Sulfate (Ventolin 0.083% Nebulizer Soln -) 1 amp NEB Q4H PRN PRN Reason: SHORT OF BREATH/WHEEZING Last Admin: 05/02/17 21:57 Dose: 1 amp Budesonide/Formoterol Fumarate (Symbicort 80/4.5mcg -) 2 puff IH BID [facility] Last Admin: 05/04/17 09:46 Dose: 2 puff Calcium Carbonate/Cholecalciferol (Os-Misha 500+D -) 1 tab PO DAILY [facility] Last Admin: 05/04/17 09:47 Dose: 1 tab Diltiazem HCl (Cardizem Cd -) 180 mg PO BID [facility] Last Admin: 05/04/17 09:46 Dose: 180 mg Docusate Sodium (Colace -) 100 mg PO TID [facility] Last Admin: 05/04/17 14:03 Dose: 100 mg Enoxaparin Sodium (Lovenox -) 40 mg SQ DAILY [facility] Last Admin: 05/04/17 09:47 Dose: 40 mg Ferrous Sulfate (Feosol -) 325 mg PO DAILY [facility] Last Admin: 05/04/17 09:47 Dose: 325 mg Latanoprost (Xalatan 0.005% Eye Drops -) 1 drop OU HS [facility] Last Admin: 05/03/17 21:57 Dose: 1 drop Loratadine (Claritin -) 10 mg PO DAILY [facility] Last Admin: 05/04/17 09:46 Dose: 10 mg Montelukast Sodium (Singulair -) 10 mg PO HS [facility] Last Admin: 05/03/17 21:57 Dose: 10 mg Multi-Ingredient Lotion (Eucerin (Small Jar) -) 1 applic TP DAILY [facility] Last Admin: 05/04/17 09:47 Dose: 1 applic Multivitamins/Minerals/Vitamin C (Tab-A-Vit -) 1 tab PO DAILY [facility] Last Admin: 05/04/17 09:46 Dose: 1 tab Nystatin (Nystatin Oral Suspension -) 500,000 units PO Q6HPO [facility] Last Admin: 05/04/17 17:47 Dose: 500,000 units Ondansetron HCl (Zofran Injection) 4 mg IVPUSH Q6H PRN PRN Reason: NAUSEA AND/OR VOMITING Last Admin: 04/28/17 16:03 Dose: 4 mg Oxycodone HCl (Roxicodone -) 5 mg PO Q4H PRN PRN Reason: PAIN LEVEL 6-10 Last Admin: 05/01/17 10:56 Dose: 5 mg Pantoprazole Sodium (Protonix -) 40 mg PO DAILY [facility] Last Admin: 05/04/17 09:47 Dose: 40 mg Polyethylene Glycol (Miralax (For Daily Use) -) 17 gm PO BID [facility] Last Admin: 05/04/17 14:03 Dose: 17 gm Potassium Chloride (K-Dur -) 20 meq PO DAILY [facility] Last Admin: 05/04/17 09:47 Dose: 20 meq Prednisone (Deltasone -) 20 mg PO DAILY [facility] Last Admin: 05/04/17 09:46 Dose: 20 mg Tiotropium [place] (Spiriva -) 1 puff IH DAILY [facility] Last Admin: 05/04/17 09:46 Dose: 1 inh Torsemide (Demadex -) 40 mg PO BIDLASIX [facility] Last Admin: 05/04/17 14:05 Dose: Not Given - Objective Vital Signs: Vital Signs Temperature 97.8 F 05/04/17 14:00 Pulse Rate 101 H 05/04/17 14:00 Respiratory Rate 20 05/04/17 14:00 Blood Pressure 98/55 05/04/17 14:00 O2 Sat by Pulse Oximetry (%) 98 05/04/17 10:52 Constitutional: Yes: Well Nourished, No Distress, Calm Cardiovascular: Yes: Regular Rate and Rhythm, S1, S2. No: Gallop, Murmur Respiratory: Yes: Regular, Wheezes (bases). No: Accessory Muscle Use, Rales Extremities: No: Cold Edema: No Neurological: Yes: Alert, Oriented Psychiatric: No: Agitated Labs: CBC, BMP 05/04/17 08:11 05/04/17 08:11 INR, PTT INR 0.94 (0.82-1.09) 04/26/17 19:20 Assessment/Plan cxr: no acute pulm pathology Echo 08/16: nl LV/EF; RV tds; nl LA; valves WNL; RVSP 40-50 76 yo with h/o htn, hfpef, O2 dep't copd, h/o GI ulcer c/b anemia, oa who presents s/p mechanical fall c/b fracture with plan for surgery. s/p fall, with fracture: - now s/p left hip intramedullary nail to repair left hip intertrochanteric fracture on 04/28 chronic diast chf: - mild pulm HTN on recent echo, ? WHO 2 etiol. - remains likely euvolemic. on torsemide 40 bid at home, continued here (only held 04/27 and am 04/28). - c/o sob with orthopnea not her usual baseline--? a.e. copd. - cont torsemide same, rpt CXR in am--low threshold to give trial of 1-2 doses IV lasix if sob persists COPD, ? with a.e.: -? sec to LV diast chf vs ? hypoxic chronic lung dz (on home O2 for copd)- -pulmonary following. HTN: - bp controlled. - con't diltiazem 180 mg bid, anemia, chronic: - stable (improved) at present
[2017-05-04] MEDS ORDERED: PT OWN MED DRAWER 7, Y5N ONE (21:36)
[2017-05-04] MEDS: MONTELUKAST NA 10 MG TABLET PO SCH (21:40)
[2017-05-04] MEDS: LATANOPROST 0.005% OPHTH SOLN 2.5ML BOTTLE OU SCH (21:41)
[2017-05-04] MEDS ORDERED: ACETAMINOPHEN 325 MG TABLET (FP) PO PRN (22:00)
[2017-05-04] MEDS ORDERED: ASPIRIN 325 MG TABLET PO ONE (22:15)
[2017-05-04] MEDS: ALBUTEROL SO4 0.083% IH SOL 2.5 MG/3 ML VIAL.NEB. NEB PRN (22:54)
[2017-05-05] MEDS: NYSTATIN 500,000 UNITS/5 ML SUSPENSION PO SCH ×4 (00:31→17:59)
[2017-05-05] MEDS: TORSEMIDE 20 MG TABLET (FP) PO SCH (05:24)
[2017-05-05] MEDS: DOCUSATE SODIUM 100 MG CAPSULE (FP) PO SCH ×3 (05:24→22:14)
[2017-05-05 08:11] LABS: BASO % 0.1 % (0-2.0); EOS % 1.8 % (0-4.5); HEMATOCRIT 30.6 % (32.4-45.2); HEMOGLOBIN 9.5 GM/dL (10.7-15.3); LYMPH % 5.9 % (8-40); MCH 24.5 pg (25.7-33.7); MCHC 30.9 g/dl (32.0-36.0); MEAN CELL VOLUME 79.3 fl (80-96); MEAN PLT VOLUME 9.1 fl (7.5-11.1); MONO % 9.8 % (3.8-10.2); NEUT % 82.4 % (42.8-82.8); PLATELET COUNT 213 K/MM3 (134-434); RBC 3.86 M/mm3 (3.60-5.2); RDW 15.9 % (11.6-15.6); WHITE BLOOD COUNT 14.9 K/mm3 (4.0-10.0)
[2017-05-05 08:24] LABS: CALCIUM 8.2 mg/dL (8.5-10.1); CHLORIDE 90 mmol/L (98-107); POTASSIUM 3.6 mmol/L (3.5-5.1); SODIUM 138 mmol/L (136-145)
[2017-05-05 08:29] LABS: ALBUMIN 2.9 g/dl (3.4-5.0); ALK PHOS 81 U/L (45-117); ANION GAP 4 (8-16); BILIRUBIN,TOTAL 0.9 mg/dL (0.2-1.0); BLOOD UREA NITROGEN 20 mg/dL (7-18); CO2 44 mmol/L (21-32); CREATININE 0.7 mg/dL (0.55-1.02); GLUCOSE,RANDOM 79 mg/dL (74-106); MAGNESIUM 2.6 mg/dL (1.8-2.4); PHOSPHOROUS 4.7 mg/dL (2.5-4.9); SGOT/AST 32 U/L (15-37); SGPT/ALT 231 U/L (12-78); TOT PROT 5.7 g/dl (6.4-8.2)
[2017-05-05] MEDS: ENOXAPARIN NA (PORCINE) 40 MG/0.4 ML DISP.SYRIN SQ SCH (09:58)
[2017-05-05] MEDS: CALCIUM 500MG/VIT-D 200 UNITS COMBO TABLET (FP) PO SCH (09:58)
[2017-05-05] MEDS: POTASSIUM CHLORIDE TABS 20 MEQ TABLET.ER (FP) PO SCH (09:58)
[2017-05-05] MEDS: predniSONE 20 MG TABLET (UD) PO SCH (09:58)
[2017-05-05] MEDS: FERROUS SO4 325 MG TABLET (FP) PO SCH (09:58)
[2017-05-05] MEDS: PANTOPRAZOLE 40 MG TABLET (FP) PO SCH (09:58)
[2017-05-05] MEDS: MULTIVITAMINS (DAILY MVI) TABLET (FP) PO SCH (09:58)
[2017-05-05] MEDS: LORATADINE 10 MG TABLET PO SCH (09:58)
[2017-05-05] MEDS: TIOTROPIUM BROMIDE 18 MCG/INH (DEVICE W/ 5 CAPSULES) IH SCH (09:59)
[2017-05-05] MEDS: BUDESONIDE/FORMETEROL FUMARATE 80/4.5 mcg INHALER IH SCH ×2 (09:59→22:14)
[2017-05-05] MEDS: MINERAL OIL/PETROLAT/WATER TOPICAL CREAM 113 GM JAR TP SCH (10:02)
[2017-05-05] MEDS: POLYETHYLENE GLYCOL 3350 119 GM BTL PO SCH ×2 (10:03→22:15)
[2017-05-05] MEDS ORDERED: CALCIUM CARBONATE SUSPENSION - 500 MG/5 ML ML PO SCH (12:00)
--- NOTE | 2017-05-05 12:05 | PN ---
Progress Note, Physician Chief Complaint: Ms Hadley says she is feeling better today. Had enema this morning and had bowel movement. Denies cp, sob, n/v. - Current Medication List Current Medications: Active Medications Albuterol Sulfate (Ventolin 0.083% Nebulizer Soln -) 1 amp NEB Q4H PRN PRN Reason: SHORT OF BREATH/WHEEZING Last Admin: 05/04/17 22:54 Dose: 1 amp Budesonide/Formoterol Fumarate (Symbicort 80/4.5mcg -) 2 puff IH BID [facility] Last Admin: 05/05/17 09:59 Dose: 2 puff Calcium Carbonate (Calcium Carb Oral Suspension -) 500 mg PO DAILY [facility] Calcium Carbonate/Cholecalciferol (Os-Misha 500+D -) 1 tab PO DAILY [facility] Last Admin: 05/05/17 09:58 Dose: 1 tab Diltiazem HCl (Cardizem Cd -) 180 mg PO BID [facility] Last Admin: 05/05/17 09:58 Dose: 180 mg Docusate Sodium (Colace -) 100 mg PO TID [facility] Last Admin: 05/05/17 05:24 Dose: 100 mg Enoxaparin Sodium (Lovenox -) 40 mg SQ DAILY [facility] Last Admin: 05/05/17 09:58 Dose: 40 mg Ferrous Sulfate (Feosol -) 325 mg PO DAILY [facility] Last Admin: 05/05/17 09:58 Dose: 325 mg Lactulose (Cephulac (Oral Use)) 20 gm PO TID [facility] Latanoprost (Xalatan 0.005% Eye Drops -) 1 drop OU HS [facility] Last Admin: 05/04/17 21:41 Dose: 1 drop Loratadine (Claritin -) 10 mg PO DAILY [facility] Last Admin: 05/05/17 09:58 Dose: 10 mg Montelukast Sodium (Singulair -) 10 mg PO HS [facility] Last Admin: 05/04/17 21:40 Dose: 10 mg Multi-Ingredient Lotion (Eucerin (Small Jar) -) 1 applic TP DAILY [facility] Last Admin: 05/05/17 10:02 Dose: 1 applic Multivitamins/Minerals/Vitamin C (Tab-A-Vit -) 1 tab PO DAILY [facility] Last Admin: 05/05/17 09:58 Dose: 1 tab Nystatin (Nystatin Oral Suspension -) 500,000 units PO Q6HPO [facility] Last Admin: 05/05/17 11:24 Dose: 500,000 units Ondansetron HCl (Zofran Injection) 4 mg IVPUSH Q6H PRN PRN Reason: NAUSEA AND/OR VOMITING Last Admin: 04/28/17 16:03 Dose: 4 mg Pantoprazole Sodium (Protonix -) 40 mg PO DAILY [facility] Last Admin: 05/05/17 09:58 Dose: 40 mg Polyethylene Glycol (Miralax (For Daily Use) -) 17 gm PO BID [facility] Last Admin: 05/05/17 10:03 Dose: 17 gm Potassium Chloride (K-Dur -) 20 meq PO DAILY [facility] Last Admin: 05/05/17 09:58 Dose: 20 meq Prednisone (Deltasone -) 20 mg PO DAILY [facility] Last Admin: 05/05/17 09:58 Dose: 20 mg Tiotropium [place] (Spiriva -) 1 puff IH DAILY [facility] Last Admin: 05/05/17 09:59 Dose: 1 inh Torsemide (Demadex -) 40 mg PO BIDLASIX [facility] Last Admin: 05/05/17 05:24 Dose: 40 mg - Objective Vital Signs: Vital Signs Temperature 36.6 C 05/05/17 06:00 Pulse Rate 95 H 05/05/17 06:00 Respiratory Rate 20 05/05/17 06:00 Blood Pressure 110/56 05/05/17 06:00 O2 Sat by Pulse Oximetry (%) 98 05/04/17 10:52 Constitutional: Yes: Well Nourished, No Distress, Calm Cardiovascular: Yes: Regular Rate and Rhythm. No: Gallop, Murmur, Rub Respiratory: Yes: Regular, CTA Bilaterally. No: Rales, Rhonchi, Wheezes Gastrointestinal: Yes: Normal Bowel Sounds, Soft. No: Distention, Tenderness Extremities: Yes: WNL Edema: No Labs: CBC, BMP 05/05/17 07:00 05/05/17 07:00 INR, PTT INR 0.94 (0.82-1.09) 04/26/17 19:20 Problem List - Problems (1) Fracture, hip Code(s): S72.009A - FRACTURE OF UNSP PART OF NECK OF UNSP FEMUR, INIT Qualifiers: Encounter type: initial encounter Fracture type: closed Laterality: left Qualified Code(s): S72.002A - Fracture of unspecified part of neck of left femur, initial encounter for closed fracture (2) COPD (chronic obstructive pulmonary disease) Code(s): J44.9 - CHRONIC OBSTRUCTIVE PULMONARY DISEASE, UNSPECIFIED (3) CHF (congestive heart failure) Code(s): I50.9 - HEART FAILURE, UNSPECIFIED Qualifiers: Congestive heart failure type: diastolic Congestive heart failure chronicity: chronic Qualified Code(s): I50.32 - Chronic diastolic (congestive ) heart failure (4) Hypertension Code(s): I10 - ESSENTIAL (PRIMARY) HYPERTENSION (5) Chronic respiratory failure Code(s): J96.10 - CHRONIC RESPIRATORY FAILURE, UNSP W HYPOXIA OR HYPERCAPNIA (6) Anemia Code(s): D64.9 - ANEMIA, UNSPECIFIED Qualifiers: Anemia type: other cause Other causes of anemia: acute posthemorrhagic Qualified Code(s): D62 - Acute posthemorrhagic anemia Assessment/Plan (1) Fracture, hip Assessment/Plan: -stable -continue PT and DVT PPx -planning on transfer to SNF when stable Code(s): S72.009A - FRACTURE OF UNSP PART OF NECK OF UNSP FEMUR, INIT Qualifiers: Encounter type: initial encounter Fracture type: closed Laterality: left Qualified Code(s): S72.002A - Fracture of unspecified part of neck of left femur, initial encounter for closed fracture (2) COPD (chronic obstructive pulmonary disease) Assessment/Plan -appears at baseline -continue prednisone and bronchodilators -pulmonary following -will titrate prednisone to 10mg Code(s): J44.9 - CHRONIC OBSTRUCTIVE PULMONARY DISEASE, UNSPECIFIED (3) CHF (congestive heart failure) Assessment/Plan: -continue torsemide with hold parameters -cardiology following Code(s): I50.9 - HEART FAILURE, UNSPECIFIED Qualifiers: Congestive heart failure type: diastolic Congestive heart failure chronicity: chronic Qualified Code(s): I50.32 - Chronic diastolic (congestive ) heart failure (4) Hypertension Assessment/Plan: -controlled -continue diltiazem -holding torsemide for nuclear medicine scan Code(s): I10 - ESSENTIAL (PRIMARY) HYPERTENSION (5) Chronic respiratory failure Assessment/Plan: -continue oxygen Code(s): J96.10 - CHRONIC RESPIRATORY FAILURE, UNSP W HYPOXIA OR HYPERCAPNIA (6) ABLA -stable (7) Severe constipation -small bowel movement this am after enema -will add scheduled lactulose (8) Hydronephrosis -appreciate urology consult -planning for renal scan tomorrow -hold torsemide in preparation
--- NOTE | 2017-05-05 14:15 | CON.GU ---
Consult Consult Specialty:: Referred by:: Medicine Reason for Consultation:: 76 year old female admitted with a fall. She was noted to have hydronephrosis on CT - History of Present Illness Chief Complaint: hydronephrosis History of Present Illness: 76 year old female who denies any history. She has incidental finding of a UPJ obstruction on CT. She has history of recurrent UTIs but no other major complaints and no flank pain. She is unaware of this finding earlier - History Source History Provided By: Patient, Medical Record Limitations to Obtaining History: No Limitations - Past Medical History Cardio/Vascular: Yes: HTN Pulmonary: Yes: COPD, Other (oxygen at home) Gastrointestinal: Yes: Other (History of ulcer disease diagnosed 3 years ago when patient presented with anemia) Renal/: Yes: UTI Musculoskeletal: Yes: Osteoarthritis - Past Surgical History Past Surgical History: Yes: None - Alcohol/Substance Use Hx Alcohol Use: No History of Substance Use: reports: None - Smoking History Smoking history: Former smoker Have you smoked in the past 12 months: No Aproximately how many cigarettes per day: 0 If you are a former smoker, when did you quit?: Over 15 years ago - Social History ADL: Independent 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, , 2 children History of Recent Travel: No Home Medications - Allergies Allergies/Adverse Reactions: Allergies Allergy/AdvReac Type Severity Reaction Status Date / Time No Known Allergies Allergy Verified 04/26/17 19:39 - Home Medications Home Medications: Ambulatory Orders Albuterol Sulfate [Proair Hfa -] 1 - 2 inh PO PRN PRN 10/15/11 Fluticasone/Salmeterol [Advair 250-50 Diskus] 1 each IH BID 10/15/11 Tiotropium [place] [Spiriva] 18 mcg IH DAILY 10/15/11 Montelukast Na [Singulair -] 10 mg PO HS #0 tablet 10/20/11 Multivitamins [Multivit ([facility] Formulary)] 1 udtab PO DAILY #0 tab 10/20/11 Ferrous Sulfate [Feosol] 325 mg PO DAILY 01/18/12 Calcium Carbonate/Vitamin D3 [Calcium 600-Vit D3 200 Tablet] 1 each PO DAILY 10/13 Docosahexanoic Acid/Epa [Fish Oil Softgel] 1 each PO DAILY 11/05/12 Potassium Chloride [K-Dur] 20 meq PO DAILY #0 tab.er.prt 11/05/12 Alendronate Sodium [Fosamax] 35 mg PO KELLER 09/01/15 Atorvastatin Ca [Lipitor] 10 mg PO HS 09/01/15 Latanoprost 0.005% Eye Drops [Xalatan 0.005% Eye Drops -] 1 drop OU HS 09/01/15 Torsemide 40 mg PO BID #120 tablet 09/02/15 Diltiazem Cd [Cardizem Cd -] 180 mg PO BID 06/30/16 Diphenhydramine HCl [Benadryl Capsule -] 25 mg PO Q6H PRN 06/30/16 Pantoprazole Sodium 40 mg PO DAILY 06/30/16 Azithromycin 250 mg PO DAILY 04/26/17 Family Disease History - Family Disease History Family Disease History: Heart Disease: Father, Other: Mother (Alzheimers Dementia) Review of Systems - Review of Systems Genitourinary: reports: No Symptoms Physical Exam- Vital Signs: Vital Signs Temperature 98 F 05/05/17 06:00 Pulse Rate 95 H 05/05/17 06:00 Respiratory Rate 20 05/05/17 06:00 Blood Pressure 110/56 05/05/17 06:00 O2 Sat by Pulse Oximetry (%) 98 05/04/17 10:52 Renal/: No: Bladder Distention, CVA Tenderness - Left, CVA Tenderness - Right Labs: CBC, BMP 05/05/17 07:00 05/05/17 07:00 Imaging - Results Cat Scan: Report Reviewed Problem List - Problems (1) Ureteropelvic junction (UPJ) obstruction, right Assessment/Plan: will obtain a renal scan to be ordered to determine differential function and degree of obstruction Code(s): N13.5 - CROSSING VESSEL AND STRICTURE OF URETER W/O HYDRONEPHROSIS
[2017-05-05] MEDS: LACTULOSE 20 GM/30 ML UDC (FOR ORAL USE ONLY) PO SCH ×2 (14:19→22:14)
[2017-05-05] MEDS: CALCIUM CARBONATE SUSPENSION - 500 MG/5 ML ML PO SCH (14:55)
--- NOTE | 2017-05-05 15:39 | OP ---
DATE OF OPERATION: 04/28/2017 PREOPERATIVE DIAGNOSIS: Left intertrochanteric hip fracture. POSTOPERATIVE DIAGNOSIS: Left intertrochanteric hip fracture. PROCEDURE: Left hip intramedullary nail. SURGEON: Prakash Flores MD WATCH DIAL STONER: NORMA Solis, whose skillful assistance was necessary for the safe and timely performance of this procedure. Mr. Moreno was able to help provide limb positioning, retraction, significant fracture reduction and the insertion of orthopedic fixation hardware. ANESTHESIA: Spinal. POSTOPERATIVE CONDITION: Stable. COMPLICATIONS: None. IMPLANTS: Regino Gamma Nail, Gamma3 System, 10 mm x 340 mm nail at 125 degrees with 90 mm x 10 mm proximal lag screw and 40 mm x 5 mm distal locking screw. BLOOD LOSS: 150 mL. INDICATIONS: This is a pleasant 76-year-old female who suffered a trip and fall. She was found to have an intertrochanteric hip fracture. Treatment options including nonoperative versus operative management were discussed. Operative management was highly recommended to provide for early mobilization and limit complications from the fracture as well as restore ambulatory ability. The surgical risks were reviewed in detail including bleeding, infection, neurovascular injury, need for further surgery, postoperative pain or stiffness, nonunion, malunion, hardware failure or cutup. We discussed medical risks such as heart attack, stroke, DVT, PE, and . We discussed use of perioperative DVT prophylaxis as well as perioperative antibiotic prophylaxis. I addressed all the patients questions. We reviewed the postoperative rehabilitation protocol. She was understanding and was electing to proceed. DESCRIPTION OF PROCEDURE: Patient was brought to the operating room where spinal anesthesia was administered. The patient was then placed on the fracture table. Care was taken to pad all the bony prominences. The left lower extremity was then prepped and draped in the usual sterile fashion after being placed into position of traction, adduction and internal rotation. Preoperative fluoroscopy was used to confirm satisfactorily reduction. Patient was now given a dose of preoperative antibiotics, and the usual time-out procedure was performed. A stab wound was now made with a 10 blade just proximal to the greater trochanter. Guidewire was then advanced through the site into the femoral canal. The opening reamer was now passed down to the level of the . One guidewire was now inserted down to the scar. Distance was measured to allow for positioning the nail. A 340-mm nail was chosen. The guidewire initially was confirmed fluoroscopically in . The canal was now reamed up to a size 11.5. The nail was then inserted into the canal. Nail placement was verified fluoroscopically. The trocar was now inserted through the jig, and a small incision was made through the skin where the trocar was . over the bone. Guidewire was femoral neck into the center of the femoral head. This was confirmed fluoroscopically in 2 planes. The guidewire was now measured, and a 90-mm proximal lag screw was chosen. The guidewire was then over-reamed, and the screw was inserted. Screw placement was confirmed fluoroscopically in 2 planes. Facet screw was now inserted all the way down and then back up a quarter-turn to allow for compression. The removed. The jig was removed. Attention was then turned distally. Utilizing perfect [place] technique, locking oblong hole was identified. A small incision was made over the hole. Blunt spreading was carried down to the bone. The drill was then used to create a hole. It was measured and a screw was inserted. At this point, the hardware placement was examined both digitally and fluoroscopically. The fracture placement were satisfactory. The wounds were irrigated. tissue was approximated with 2-0 Vicryl. The subcutaneous tissue was approximately using 2-0 Vicryl. The skin was closed using 3-0 nylon. Sterile dressings were placed. The patient transferred to the recovery room in stable condition. Mart [id number]
--- NOTE | 2017-05-05 21:30 | PN ---
Progress Note (short form) - Note Progress Note: Chief Complaint: sob History of Present Illness: feels modestly sob, not her usual baseline. is attributing it to anxiety. s/p torsemide daily yesterday and today instead of BID. bicarb up to 50 yesterday, improved today. cxr today with clear lung kwok. no cp/pressure no leg swelling no palpitations Current Medications Albuterol Sulfate (Ventolin 0.083% Nebulizer Soln -) 1 amp NEB Q4H PRN PRN Reason: SHORT OF BREATH/WHEEZING Last Admin: 05/04/17 22:54 Dose: 1 amp Budesonide/Formoterol Fumarate (Symbicort 80/4.5mcg -) 2 puff IH BID [facility] Last Admin: 05/05/17 09:59 Dose: 2 puff Calcium Carbonate (Calcium Carb Oral Suspension -) 500 mg PO DAILY [facility] Last Admin: 05/05/17 14:55 Dose: 500 mg Calcium Carbonate/Cholecalciferol (Os-Misha 500+D -) 1 tab PO DAILY [facility] Last Admin: 05/05/17 09:58 Dose: 1 tab Diltiazem HCl (Cardizem Cd -) 180 mg PO BID [facility] Last Admin: 05/05/17 09:58 Dose: 180 mg Docusate Sodium (Colace -) 100 mg PO TID [facility] Last Admin: 05/05/17 14:19 Dose: 100 mg Enoxaparin Sodium (Lovenox -) 40 mg SQ DAILY [facility] Last Admin: 05/05/17 09:58 Dose: 40 mg Ferrous Sulfate (Feosol -) 325 mg PO DAILY [facility] Last Admin: 05/05/17 09:58 Dose: 325 mg Lactulose (Cephulac (Oral Use)) 20 gm PO TID [facility] Last Admin: 05/05/17 14:19 Dose: 20 gm Latanoprost (Xalatan 0.005% Eye Drops -) 1 drop OU [facility] Last Admin: 05/04/17 21:41 Dose: 1 drop Loratadine (Claritin -) 10 mg PO DAILY [facility] Last Admin: 05/05/17 09:58 Dose: 10 mg Montelukast Sodium (Singulair -) 10 mg PO HS [facility] Last Admin: 05/04/17 21:40 Dose: 10 mg Multi-Ingredient Lotion (Eucerin (Small Jar) -) 1 applic TP DAILY [facility] Last Admin: 05/05/17 10:02 Dose: 1 applic Multivitamins/Minerals/Vitamin C (Tab-A-Vit -) 1 tab PO DAILY [facility] Last Admin: 05/05/17 09:58 Dose: 1 tab Nystatin (Nystatin Oral Suspension -) 500,000 units PO Q6HPO [facility] Last Admin: 05/05/17 17:59 Dose: 500,000 units Ondansetron HCl (Zofran Injection) 4 mg IVPUSH Q6H PRN PRN Reason: NAUSEA AND/OR VOMITING Last Admin: 04/28/17 16:03 Dose: 4 mg Pantoprazole Sodium (Protonix -) 40 mg PO DAILY [facility] Last Admin: 05/05/17 09:58 Dose: 40 mg Polyethylene Glycol (Miralax (For Daily Use) -) 17 gm PO BID [facility] Last Admin: 05/05/17 10:03 Dose: 17 gm Potassium Chloride (K-Dur -) 20 meq PO DAILY [facility] Last Admin: 05/05/17 09:58 Dose: 20 meq Prednisone (Deltasone -) 10 mg PO DAILY [facility] Tiotropium [place] (Spiriva -) 1 puff IH DAILY [facility] Last Admin: 05/05/17 09:59 Dose: 1 inh Torsemide (Demadex -) 40 mg PO BIDLASIX [facility] Last Admin: 05/05/17 05:24 Dose: 40 mg Vital Signs - 24 hr 05/05/17 05/05/17 05/05/17 06:00 09:00 10:00 Temperature 98 F Pulse Rate 95 H 108 H Respiratory 20 18 Rate Blood Pressure 110/56 113/56 O2 Sat by Pulse 95 Oximetry (%) 05/05/17 05/05/17 05/05/17 14:47 15:21 19:00 Temperature 98.0 F 99.9 F H Pulse Rate 95 H 98 H 100 H Respiratory 20 20 Rate Blood Pressure 120/61 125/69 O2 Sat by Pulse 95 Oximetry (%) Intake & Output 05/03/17 05/04/17 05/05/17 05/06/17 07:59 07:59 07:59 07:59 Intake Total 240 300 0 Output Total 1600 600 Balance 240 300 -1600 -600 Weight 117 lb 5 oz 120 lb 120 lb Constitutional: Yes: Well Nourished, No Distress, Calm Cardiovascular: Yes: Regular Rate and Rhythm, S1, S2. No: Gallop, Murmur Respiratory: Yes: Regular, diminshed air mov't. No: Accessory Muscle Use, Rales Extremities: No: Cold Edema: No Neurological: Yes: Alert, Oriented Psychiatric: No: Agitated Labs: CBC, BMP 05/05/17 07:00 05/05/17 07:00 Assessment/Plan cxr: no acute pulm pathology Echo 08/16: nl LV/EF; RV tds; nl LA; valves WNL; RVSP 40-50 76 yo with h/o htn, hfpef, O2 dep't copd, h/o GI ulcer c/b anemia, oa who presents s/p mechanical fall c/b fracture with plan for surgery. s/p fall, with fracture: - now s/p left hip intramedullary nail to repair left hip intertrochanteric fracture on 04/28 chronic diast chf: - mild pulm HTN on recent echo, ? WHO 2 etiol. - remains likely euvolemic. on torsemide 40 bid at home, continued here (only held 04/27 and am 04/28). - c/o sob with orthopnea not her usual baseline--? a.e. copd. - cont torsemide same, rpt CXR in am--low threshold to give trial of 1-2 doses IV lasix if sob persists - 05/05: bicarb up to 50 on 05/04. had been on torsemide bid, but received daily dosing yesterday and today. sob may be slightly worse today, but cxr clear (no edema). lyte repleiton. daily weights. con't daily dosing for now (will give slightly higher dose of 60 mg daily) COPD, ? with a.e.: -? sec to LV diast chf vs ? hypoxic chronic lung dz (on home O2 for copd)- -pulmonary following. HTN: - bp controlled. intermittently running low. - con't diltiazem 180 mg bid, monitor for need to decrease dose anemia, chronic: - stable (improved) at present
[2017-05-05] MEDS ORDERED: POTASSIUM CHLORIDE ORAL LIQUID 20 MEQ/15 ML PO ONE (22:00)
[2017-05-05] MEDS ORDERED: PT OWN MED DRAWER 7, Y5N ONE (22:11)
[2017-05-05] MEDS: MONTELUKAST NA 10 MG TABLET PO SCH (22:14)
[2017-05-05] MEDS: LATANOPROST 0.005% OPHTH SOLN 2.5ML BOTTLE OU SCH (22:32)
[2017-05-06] MEDS: NYSTATIN 500,000 UNITS/5 ML SUSPENSION PO SCH ×4 (00:07→17:35)
[2017-05-06] MEDS: DOCUSATE SODIUM 100 MG CAPSULE (FP) PO SCH ×3 (05:31→22:20)
[2017-05-06] MEDS: LACTULOSE 20 GM/30 ML UDC (FOR ORAL USE ONLY) PO SCH ×3 (05:31→22:22)
[2017-05-06 08:31] LABS: BASO % 0.1 % (0-2.0); EOS % 1.7 % (0-4.5); HEMATOCRIT 30.3 % (32.4-45.2); HEMOGLOBIN 9.3 GM/dL (10.7-15.3); LYMPH % 6.3 % (8-40); MCH 24.3 pg (25.7-33.7); MCHC 30.6 g/dl (32.0-36.0); MEAN CELL VOLUME 79.6 fl (80-96); MEAN PLT VOLUME 8.9 fl (7.5-11.1); MONO % 10.8 % (3.8-10.2); NEUT % 81.1 % (42.8-82.8); PLATELET COUNT 213 K/MM3 (134-434); RBC 3.81 M/mm3 (3.60-5.2); RDW 16.2 % (11.6-15.6); WHITE BLOOD COUNT 13.8 K/mm3 (4.0-10.0)
[2017-05-06 08:52] LABS: ALBUMIN 2.7 g/dl (3.4-5.0); ANION GAP 6 (8-16); BILIRUBIN,DIRECT 0.2 mg/dL (0.0-0.2); BLOOD UREA NITROGEN 19 mg/dL (7-18); CALCIUM 8.6 mg/dL (8.5-10.1); CHLORIDE 92 mmol/L (98-107); CO2 42 mmol/L (21-32); GLUCOSE,RANDOM 80 mg/dL (74-106); MAGNESIUM 2.8 mg/dL (1.8-2.4); POTASSIUM 3.8 mmol/L (3.5-5.1); SODIUM 140 mmol/L (136-145)
[2017-05-06 08:54] LABS: BILIRUBIN,TOTAL 0.6 mg/dL (0.2-1.0); CREATININE 0.8 mg/dL (0.55-1.02); PHOSPHOROUS 4.8 mg/dL (2.5-4.9); TOT PROT 5.3 g/dl (6.4-8.2)
[2017-05-06] MEDS ORDERED: TORSEMIDE 20 MG TABLET (FP) PO SCH (10:00)
[2017-05-06] MEDS ORDERED: PT OWN MED DRAWER 7, Y5N ONE ×2 (10:34→22:05)
[2017-05-06] MEDS: POTASSIUM CHLORIDE TABS 20 MEQ TABLET.ER (FP) PO SCH (10:36)
[2017-05-06] MEDS: FERROUS SO4 325 MG TABLET (FP) PO SCH (10:36)
[2017-05-06] MEDS: CALCIUM CARBONATE SUSPENSION - 500 MG/5 ML ML PO SCH (10:36)
[2017-05-06] MEDS: MULTIVITAMINS (DAILY MVI) TABLET (FP) PO SCH (10:36)
[2017-05-06] MEDS: PANTOPRAZOLE 40 MG TABLET (FP) PO SCH (10:37)
[2017-05-06] MEDS: predniSONE 10 MG TABLET (UD) PO SCH (10:37)
[2017-05-06] MEDS: ENOXAPARIN NA (PORCINE) 40 MG/0.4 ML DISP.SYRIN SQ SCH (10:37)
[2017-05-06] MEDS: LORATADINE 10 MG TABLET PO SCH (10:37)
[2017-05-06] MEDS: TORSEMIDE 20 MG TABLET (FP) PO SCH (10:37)
[2017-05-06] MEDS: CALCIUM 500MG/VIT-D 200 UNITS COMBO TABLET (FP) PO SCH (10:37)
[2017-05-06] MEDS: MINERAL OIL/PETROLAT/WATER TOPICAL CREAM 113 GM JAR TP SCH (10:37)
[2017-05-06] MEDS: TIOTROPIUM BROMIDE 18 MCG/INH (DEVICE W/ 5 CAPSULES) IH SCH (10:38)
[2017-05-06] MEDS: BUDESONIDE/FORMETEROL FUMARATE 80/4.5 mcg INHALER IH SCH ×2 (10:38→22:20)
[2017-05-06] MEDS: POLYETHYLENE GLYCOL 3350 119 GM BTL PO SCH ×2 (10:38→22:21)
--- NOTE | 2017-05-06 11:25 | PN ---
Progress Note, Physician Chief Complaint: sob History of Present Illness: breathing is a little better. still feels a bit "labored". no orthopnea (sleeping flat in bed). no edema. no cp, palpit - Current Medication List Current Medications: Active Medications Albuterol Sulfate (Ventolin 0.083% Nebulizer Soln -) 1 amp NEB Q4H PRN PRN Reason: SHORT OF BREATH/WHEEZING Last Admin: 05/04/17 22:54 Dose: 1 amp Budesonide/Formoterol Fumarate (Symbicort 80/4.5mcg -) 2 puff IH BID [facility] Last Admin: 05/06/17 10:38 Dose: 2 puff Calcium Carbonate (Calcium Carb Oral Suspension -) 500 mg PO DAILY [facility] Last Admin: 05/06/17 10:36 Dose: 500 mg Calcium Carbonate/Cholecalciferol (Os-Misha 500+D -) 1 tab PO DAILY [facility] Last Admin: 05/06/17 10:37 Dose: 1 tab Diltiazem HCl (Cardizem Cd -) 120 mg PO BID [facility] Last Admin: 05/06/17 10:36 Dose: 120 mg Docusate Sodium (Colace -) 100 mg PO TID [facility] Last Admin: 05/06/17 05:31 Dose: 100 mg Enoxaparin Sodium (Lovenox -) 40 mg SQ DAILY [facility] Last Admin: 05/06/17 10:37 Dose: 40 mg Ferrous Sulfate (Feosol -) 325 mg PO DAILY [facility] Last Admin: 05/06/17 10:36 Dose: 325 mg Lactulose (Cephulac (Oral Use)) 20 gm PO TID [facility] Last Admin: 05/06/17 05:31 Dose: 20 gm Latanoprost (Xalatan 0.005% Eye Drops -) 1 drop OU HS [facility] Last Admin: 05/05/17 22:32 Dose: 1 drop Loratadine (Claritin -) 10 mg PO DAILY [facility] Last Admin: 05/06/17 10:37 Dose: 10 mg Montelukast Sodium (Singulair -) 10 mg PO HS [facility] Last Admin: 05/05/17 22:14 Dose: 10 mg Multi-Ingredient Lotion (Eucerin (Small Jar) -) 1 applic TP DAILY [facility] Last Admin: 05/06/17 10:37 Dose: 1 applic Multivitamins/Minerals/Vitamin C (Tab-A-Vit -) 1 tab PO DAILY [facility] Last Admin: 05/06/17 10:36 Dose: 1 tab Nystatin (Nystatin Oral Suspension -) 500,000 units PO Q6HPO [facility] Last Admin: 05/06/17 05:31 Dose: 500,000 units Ondansetron HCl (Zofran Injection) 4 mg IVPUSH Q6H PRN PRN Reason: NAUSEA AND/OR VOMITING Last Admin: 04/28/17 16:03 Dose: 4 mg Pantoprazole Sodium (Protonix -) 40 mg PO DAILY [facility] Last Admin: 05/06/17 10:37 Dose: 40 mg Polyethylene Glycol (Miralax (For Daily Use) -) 17 gm PO BID [facility] Last Admin: 05/06/17 10:38 Dose: 17 gm Potassium Chloride (K-Dur -) 20 meq PO DAILY [facility] Last Admin: 05/06/17 10:36 Dose: 20 meq Prednisone (Deltasone -) 10 mg PO DAILY [facility] Last Admin: 05/06/17 10:37 Dose: 10 mg Tiotropium [place] (Spiriva -) 1 puff IH DAILY [facility] Last Admin: 05/06/17 10:38 Dose: 1 inh Torsemide (Demadex -) 60 mg PO DAILY [facility] Last Admin: 05/06/17 10:37 Dose: 60 mg - Objective Vital Signs: Vital Signs Temperature 99 F 05/06/17 10:00 Pulse Rate 97 H 05/06/17 10:00 Respiratory Rate 22 05/06/17 10:00 Blood Pressure 97/62 05/06/17 10:00 O2 Sat by Pulse Oximetry (%) 95 05/06/17 09:00 Constitutional: Yes: Well Nourished, No Distress, Calm Cardiovascular: Yes: Regular Rate and Rhythm, S1, S2. No: Gallop, Murmur Respiratory: Yes: Regular, CTA Bilaterally. No: Accessory Muscle Use, Rales, Wheezes Extremities: No: Cold Edema: No Neurological: Yes: Alert, Oriented Psychiatric: No: Agitated Labs: CBC, BMP 05/06/17 07:30 05/06/17 07:30 INR, PTT INR 0.94 (0.82-1.09) 04/26/17 19:20 Assessment/Plan cxr 05/05: no acute pulm pathology Echo 08/16: nl LV/EF; RV tds; nl LA; valves WNL; RVSP 40-50 76 yo with h/o htn, hfpef, O2 dep't copd, h/o GI ulcer c/b anemia, oa who presents s/p mechanical fall c/b fracture with plan for surgery. s/p fall, with fracture: - now s/p left hip intramedullary nail to repair left hip intertrochanteric fracture on 04/28 acute on chronic hypercapneic resp failure, COPD, chronic diast chf: - mild pulm HTN on recent echo, ? WHO 2 etiol. - remains likely euvolemic. on torsemide 40 bid at home, continued here (only held 04/27 and am 04/28). - c/o sob with orthopnea not her usual baseline--clinically euvolemic with clear CXR--? a.e. copd, ? anxiety - 05/05: bicarb up to 50 on 05/04. torsemide bid changed to qd for ? contration alkalosis. pt with acute on chronic hypercapneic resp failure of pulmonary etiology, which may be contributing to rising bicarb as well. - 05/06: sob mild, stable--improving. observe. low threshold to empirically increase diuretics if sob worsens - pulm f/u as doing HTN: - bp controlled. intermittently running mildly low. - con't diltiazem 180 mg bid, consider decrease dose if bp range remains the same anemia, chronic: - stable (improved) at present
[2017-05-06] MEDS: ALBUTEROL SO4 0.083% IH SOL 2.5 MG/3 ML VIAL.NEB. NEB PRN (11:34)
[2017-05-06] MEDS ORDERED: ACETAMINOPHEN 325 MG TABLET (FP) PO PRN (12:26)
[2017-05-06] MEDS ORDERED: IBUPROFEN 200 MG TABLET PO PRN (12:35)
--- NOTE | 2017-05-06 12:48 | PN ---
Progress Note (short form) - Note Progress Note: PULMONARY AWAKE/ALERT/POST-OP DAY #7 SUBJECTIVE IMPROVEMENT IN BREATHING PRESENTLY ON N/C O2 OOB TO CHAIR VSS/TMAX 99 ANICTERIC DIMINISHED BREATH SOUNDS B/L S1S2 BS+ S/P LEFT GAMMA NAIL HIP MEDS/LABS/NOTES/IMAGES REVIEWED US NOTED/LFT'S ELEVATED BUT DOWN TRENDING IMP COPD WITH CHRONIC HYPOXEMIC RESPIRATORY FAILURE ON HOME O2 ACUTE ON CHRONIC HYPERCAPNEIC RESPIRATORY FAILURE LEFT FEMORAL FX S/P MECHANICAL FALL S/P GAMMA NAIL LEFT HIP HTN CONSTIPATION/HYDRONEPHROSIS PLAN IV STEROIDS CHANGED TO PREDNISONE O2/NIPPV NEEDED INHALED BRONCHODILATORS/DIURETICS DVT PROPHYLAXSIS WILL ULTIMATELY NEED SNF REHAB WILL FOLLOW Kathy WASHINGTON MD
--- NOTE | 2017-05-06 16:12 | PN ---
Progress Note (short form) - Note Progress Note: Patient seen for Dr. Zuniga History of mechanical fall at home and had gamma nail inserted by Dr. Flores on 04/26/17. Had elevated liver enzymes and CAT scan evaluation has revealed ureteropelvic obstruction and hydronephrosis on the right side and liver and pancreatic lesions which have not been further defined. Patient went for a renal scan to determine the degree of obstruction for the right kidney. She is having PT and progressing well since her gamma nail insertion. She has a headache and because of her liver chemistries I will just give her ibuprofen 200 mg when necessary. on exam: Vital Signs Temp 98.5 F 05/06/17 15:25 Pulse 110 H 05/06/17 15:25 Resp 22 05/06/17 15:25 BP 106/56 05/06/17 15:25 Pulse Ox 97 05/06/17 11:33 Intake & Output 05/05/17 05/06/17 05/06/17 23:59 11:59 23:59 Intake Total 450 Output Total 1100 Balance -1100 450 Weight 114 lb 6.4 oz Intake: Oral 450 Output: Urine 1100 Void 1100 Other: Voiding Method Bedpan Bedside Commode Bedside Commode # Unmeasured Voids Void 4 1 3 Bowel Movement Yes Yes Yes # Bowel Movements 3 1 2 Weight Measurement Method Built in Bedscale sitting at the bedside Alert Chest decreased breath sounds Heart regular Abdomen soft no pedal edema left lower extremity and bandages from surgery are stable. Abnormal Lab Results 05/06/17 05/06/17 05/06/17 07:30 07:30 07:30 WBC 13.8 H Hgb 9.3 L Hct 30.3 L MCV 79.6 L MCH 24.3 L MCHC 30.6 L RDW 16.2 H Lymphocytes % 6.3 L Monocytes % 10.8 H Chloride 92 L Carbon Dioxide 42 H Anion Gap 6 L BUN 19 H Magnesium 2.8 H ALT 170 H D Total Protein 5.3 L Albumin 2.7 L Impression: Mechanical fall with left hip fracture Gamma nail insertion left leg Elevated liver chemistries Pancreas and liver lesions questionable benign Hydronephrosis right kidney being evaluated by urology COPD Headache Plan: When necessary ibuprofen Followup lab Await renal scan Continue physical therapy Eventual rehabilitation
[2017-05-06] MEDS: MONTELUKAST NA 10 MG TABLET PO SCH (22:20)
[2017-05-06] MEDS: LATANOPROST 0.005% OPHTH SOLN 2.5ML BOTTLE OU SCH (22:21)
[2017-05-07] MEDS: NYSTATIN 500,000 UNITS/5 ML SUSPENSION PO SCH ×4 (00:10→17:54)
[2017-05-07] MEDS: DOCUSATE SODIUM 100 MG CAPSULE (FP) PO SCH ×2 (06:33→14:38)
[2017-05-07] MEDS: LACTULOSE 20 GM/30 ML UDC (FOR ORAL USE ONLY) PO SCH (06:33)
[2017-05-07] MEDS ORDERED: PT OWN MED DRAWER 7, Y5N ONE ×2 (06:39→09:30)
[2017-05-07 07:46] LABS: BASO % 0.2 % (0-2.0); EOS % 1.7 % (0-4.5); HEMATOCRIT 29.8 % (32.4-45.2); HEMOGLOBIN 9.2 GM/dL (10.7-15.3); LYMPH % 7.9 % (8-40); MCH 24.7 pg (25.7-33.7); MCHC 30.9 g/dl (32.0-36.0); MEAN CELL VOLUME 79.9 fl (80-96); MEAN PLT VOLUME 9.1 fl (7.5-11.1); MONO % 11.2 % (3.8-10.2); PLATELET COUNT 195 K/MM3 (134-434); RBC 3.73 M/mm3 (3.60-5.2); RDW 16.4 % (11.6-15.6); WHITE BLOOD COUNT 11.4 K/mm3 (4.0-10.0)
[2017-05-07 08:14] LABS: ALBUMIN 2.6 g/dl (3.4-5.0); ALK PHOS 84 U/L (45-117); ANION GAP 8 (8-16); BILIRUBIN,TOTAL 0.7 mg/dL (0.2-1.0); BLOOD UREA NITROGEN 19 mg/dL (7-18); CALCIUM 8.1 mg/dL (8.5-10.1); CHLORIDE 92 mmol/L (98-107); CO2 38 mmol/L (21-32); CREATININE 0.8 mg/dL (0.55-1.02); GLUCOSE,RANDOM 76 mg/dL (74-106); POTASSIUM 3.6 mmol/L (3.5-5.1); SGOT/AST 25 U/L (15-37); SGPT/ALT 129 U/L (12-78); SODIUM 138 mmol/L (136-145); TOT PROT 5.2 g/dl (6.4-8.2)
[2017-05-07 08:35] LABS: LIPASE 224 U/L (73-393)
--- NOTE | 2017-05-07 08:39 | PN ---
Progress Note (short form) - Note Progress Note: renal scan consistent with UPJ without functional obstruction. No further treatment needed at this time. Thank you for this referral. Problem List - Problems (1) Ureteropelvic junction (UPJ) obstruction, right Code(s): N13.5 - CROSSING VESSEL AND STRICTURE OF URETER W/O HYDRONEPHROSIS
[2017-05-07] MEDS: CALCIUM CARBONATE SUSPENSION - 500 MG/5 ML ML PO SCH (09:33)
[2017-05-07] MEDS: PANTOPRAZOLE 40 MG TABLET (FP) PO SCH (09:34)
[2017-05-07] MEDS: LORATADINE 10 MG TABLET PO SCH (09:34)
[2017-05-07] MEDS: POTASSIUM CHLORIDE TABS 20 MEQ TABLET.ER (FP) PO SCH (09:34)
[2017-05-07] MEDS: ENOXAPARIN NA (PORCINE) 40 MG/0.4 ML DISP.SYRIN SQ SCH (09:34)
[2017-05-07] MEDS: CALCIUM 500MG/VIT-D 200 UNITS COMBO TABLET (FP) PO SCH (09:34)
[2017-05-07] MEDS: MINERAL OIL/PETROLAT/WATER TOPICAL CREAM 113 GM JAR TP SCH (09:34)
[2017-05-07] MEDS: MULTIVITAMINS (DAILY MVI) TABLET (FP) PO SCH (09:34)
[2017-05-07] MEDS: FERROUS SO4 325 MG TABLET (FP) PO SCH (09:34)
[2017-05-07] MEDS: predniSONE 10 MG TABLET (UD) PO SCH (09:34)
[2017-05-07] MEDS: TORSEMIDE 20 MG TABLET (FP) PO SCH (09:34)
[2017-05-07] MEDS: BUDESONIDE/FORMETEROL FUMARATE 80/4.5 mcg INHALER IH SCH (09:35)
[2017-05-07] MEDS: TIOTROPIUM BROMIDE 18 MCG/INH (DEVICE W/ 5 CAPSULES) IH SCH (09:35)
[2017-05-07] MEDS: POLYETHYLENE GLYCOL 3350 119 GM BTL PO SCH (09:35)
--- NOTE | 2017-05-07 12:32 | DS ---
Physical Examination Vital Signs: Vital Signs Temperature 36.9 C 05/07/17 09:00 Pulse Rate 92 H 05/07/17 10:25 Respiratory Rate 18 05/07/17 09:00 Blood Pressure 94/54 05/07/17 09:00 O2 Sat by Pulse Oximetry (%) 96 05/07/17 10:25 Constitutional: Yes: Well Nourished, No Distress, Calm Cardiovascular: Yes: Pulse Irregular. No: Tachycardia, Gallop, Murmur, Rub Respiratory: Yes: Regular, CTA Bilaterally, On Nasal O2. No: Rales, Rhonchi, Wheezes Gastrointestinal: Yes: Normal Bowel Sounds, Soft. No: Distention, Tenderness Extremities: Yes: WNL Edema: No Labs: CBC, BMP 05/07/17 06:00 05/07/17 06:00 Discharge Summary Reason For Visit: FRACTURE OF HIP Current Active Problems Acute and chronic respiratory failure with hypercapnia (Acute) Chronic respiratory failure (Acute) Fracture, hip (Acute) Ureteropelvic junction (UPJ) obstruction, right (Acute) Hospital Course: (1) Fracture, hip Code(s): S72.009A - FRACTURE OF UNSP PART OF NECK OF UNSP FEMUR, INIT Qualifiers: Encounter type: initial encounter Fracture type: closed Laterality: left Qualified Code(s): S72.002A - Fracture of unspecified part of neck of left femur, initial encounter for closed fracture (2) COPD (chronic obstructive pulmonary disease) Code(s): J44.9 - CHRONIC OBSTRUCTIVE PULMONARY DISEASE, UNSPECIFIED (3) CHF (congestive heart failure) Code(s): I50.9 - HEART FAILURE, UNSPECIFIED Qualifiers: Congestive heart failure type: diastolic Congestive heart failure chronicity: chronic Qualified Code(s): I50.32 - Chronic diastolic (congestive ) heart failure (4) Hypertension Code(s): I10 - ESSENTIAL (PRIMARY) HYPERTENSION (5) Chronic respiratory failure Code(s): J96.10 - CHRONIC RESPIRATORY FAILURE, UNSP W HYPOXIA OR HYPERCAPNIA (6) Anemia Code(s): D64.9 - ANEMIA, UNSPECIFIED Qualifiers: Anemia type: other cause Other causes of anemia: acute posthemorrhagic Qualified Code(s): D62 - Acute posthemorrhagic anemia Ms Hadley is a very pleasant 76 year old female who came in after a fall and had a fractured hip. She has history of CHF and COPD, and was having an exacerbation of both secondary to stress. She was admitted to the hospital. She was seen by orthopedic surgery and recommended to undergo surgical repair as soon as medically stable. Cardiology and pulmonary saw the patient, her CHF and COPD were treated and she was stabilized but still with risk. She underwent surgery and tolerated it well. She did well with PT and she reached her baseline from a respiratory status, however she began to have abdominal pain. She was found to have severe constipation and was given an enema and started on lactulose. She had multiple bowel movements and the pain resolved. She incidentally was found to have chronic hydronephrosis. Urology was consulted and she underwent functional studies of her kidneys. it was confirmed the hydronephrosis was chronic and while she had an obstruction it was not complete nor was it affecting her renal function. She is currently stable for discharge to SNF. 34 minutes spent in preparation of this discharge Condition: Stable - Instructions Diet, Activity, Other Instructions: low salt diet. up with assistance, further activity per PT at SNF Referrals: Kaleb Ahumada MD [Primary Care Provider] - Adrian Arzola MD [Staff Physician] - Clark Patel MD [Staff Physician] - Prakash Flores MD [Staff Physician] - [facility] - Home Medications Comprehensive Discharge Medication List: Ambulatory Orders Albuterol Sulfate [Proair Hfa -] 1 - 2 inh PO PRN PRN 10/15/11 Fluticasone/Salmeterol [Advair 250-50 Diskus] 1 each IH BID 10/15/11 Tiotropium [place] [Spiriva] 18 mcg IH DAILY 10/15/11 Montelukast Na [Singulair -] 10 mg PO HS #0 tablet 10/20/11 Multivitamins [Multivit ([facility] Formulary)] 1 udtab PO DAILY #0 tab 10/20/11 Ferrous Sulfate [Feosol] 325 mg PO DAILY 01/18/12 Calcium Carbonate/Vitamin D3 [Calcium 600-Vit D3 200 Tablet] 1 each PO DAILY 10/13 Docosahexanoic Acid/Epa [Fish Oil Softgel] 1 each PO DAILY 11/05/12 Potassium Chloride [K-Dur] 20 meq PO DAILY #0 tab.er.prt 11/05/12 Alendronate Sodium [Fosamax] 35 mg PO KELLER 09/01/15 Atorvastatin Ca [Lipitor] 10 mg PO HS 09/01/15 Latanoprost 0.005% Eye Drops [Xalatan 0.005% Eye Drops -] 1 drop OU HS 09/01/15 Pantoprazole Sodium 40 mg PO DAILY 06/30/16 Acetaminophen [Tylenol .Regular Strength -] 650 mg PO Q4H PRN tablet 05/07/17 Diltiazem Cd [Cardizem Cd -] 120 mg PO BID cap.cd.24h 05/07/17 Docusate Sodium [Colace -] 100 mg PO TID capsule 05/07/17 Enoxaparin [Lovenox -] 40 mg SQ DAILY disp.syrin 05/07/17 Ibuprofen [Advil -] 200 mg PO Q6H PRN tablet 05/07/17 Loratadine [Claritin -] 10 mg PO DAILY tablet 05/07/17 Mineral Oil/Petrolat,Wht/Water [Eucerin (Small Jar) -] 1 applic TP DAILY jar Nystatin Oral Suspension - [Nystatin Oral Susp 837863 Units/5 ML -] 500,000 units PO Q6HPO cup 05/07/17 Polyethylene Glycol 3350 [Miralax 119 gm Btl -] 17 gm PO BID bottle 05/07/17 Prednisone [Deltasone -] 10 mg PO DAILY tablet 05/07/17 Torsemide [Demadex -] 60 mg PO DAILY tablet 05/07/17
[2017-05-07 18:37] VITALS: BP 107/57; PULSE 108; TEMP 98.2
== END 2017-05-07 20:37 | DRG 480 ==
LOC: JER 17:51 → JERBED 22:15 → J5S 04-27 03:11 → J6S 04-27 19:46
PROVIDERS: ADMIT Internal Medicine Geriatric Medicine; ATTEND Internal Medicine Geriatric Medicine
PROC: 0QH706Z Insertion of Intramedullary Internal Fixation Device into Left Upper Femur, Open Approach (ICD-10-PCS; principal; 2017-04-28 08:00)
PROC: 30233N1 Transfusion of Nonautologous Red Blood Cells into Peripheral Vein, Percutaneous Approach (ICD-10-PCS; 2017-04-30)
DX: S72.142A Displaced intertrochanteric fracture of left femur, initial encounter for closed fracture (principal); J95.822 Acute and chronic postprocedural respiratory failure; D62 Acute posthemorrhagic anemia; I50.32 Chronic diastolic (congestive) heart failure; N13.30 Unspecified hydronephrosis; J44.1 Chronic obstructive pulmonary disease with (acute) exacerbation; W19.XXXA Unspecified fall, initial encounter; Y93.9 Activity, unspecified; Y92.89 Other specified places as the place of occurrence of the external cause; Y99.9 Unspecified external cause status; I11.0 Hypertensive heart disease with heart failure; K59.00 Constipation, unspecified; I27.20 Pulmonary hypertension, unspecified; Z87.891 Personal history of nicotine dependence
CPT/HCPCS: 36415; 36430; 36600; 71010-TC; 71045-TC; 73523-TC; 74178-TC; 76000-TC; 76705-TC; 78708-TC; 80048; 80053; 80076; 81003; 82550; 82803; 83690; 83735; 83880; 84100; 84484; 85025; 85027; 85610; 86850; 86900; 86901; 86922; 93005; 93010; 94640; 94660; 94760; 97116-GP; 97161-GP; 99284-25; A9562; P9038; P9058; Q9967

== ENCOUNTER 2017-05-25 05:32 | Inpatient (IN) | payer OTHER ==
[2017-05-25] MEDS ORDERED: ALBUTEROL SO4 2.5/IPRATROPIUM 0.5 INH SOL 3 ML VIAL.NEB. NEB ONE ×2 (05:38→06:32)
[2017-05-25] MEDS ORDERED: methylPREDNISolone NA SUCC 125 MG/2 ML VIAL IVPUSH ONE (05:39)
[2017-05-25] MEDS ORDERED: MAGNESIUM SULF 50% (8.12 MEQ/2 ML-1 GM VIAL) IVPB ONE (05:39)
[2017-05-25] MEDS ORDERED: methylPREDNISolone NA SUCC 125 MG/2 ML VIAL ONE (05:43)
[2017-05-25] MEDS ORDERED: MAGNESIUM SULF 50% (8.12 MEQ/2 ML-1 GM VIAL) ONE (05:43)
--- NOTE | 2017-05-25 05:52 | PDOC ---
History of Present Illness - General Chief Complaint: Respiratory Distress Stated Complaint: DIFFICULTY BREATHING Time Seen by Provider: 05/25/17 05:43 History Source: Patient - History of Present Illness Initial Comments: 05/25/17 05:53 76F with hx of CHF, severe COPD and recent Left femur fracture (surgery on 04/28 , discharged on 05/07) presenting with shortness of breath that woke her up this morning. Patient was BIBA given 2 albuterol tx, on Nonrebreather. Past History - Past Medical History Allergies/Adverse Reactions: Allergies Allergy/AdvReac Type Severity Reaction Status Date / Time No Known Allergies Allergy Verified 05/25/17 05:33 Home Medications: Ambulatory Orders Albuterol Sulfate [Proair Hfa -] 1 - 2 inh PO PRN PRN 10/15/11 Fluticasone/Salmeterol [Advair 250-50 Diskus] 1 each IH BID 10/15/11 Tiotropium [place] [Spiriva] 18 mcg IH DAILY 10/15/11 Montelukast Na [Singulair -] 10 mg PO HS #0 tablet 10/20/11 Multivitamins [Multivit ([facility] Formulary)] 1 udtab PO DAILY #0 tab 10/20/11 Ferrous Sulfate [Feosol] 325 mg PO DAILY 01/18/12 Calcium Carbonate/Vitamin D3 [Calcium 600-Vit D3 200 Tablet] 1 each PO DAILY 10/13 Docosahexanoic Acid/Epa [Fish Oil Softgel] 1 each PO DAILY 11/05/12 Potassium Chloride [K-Dur] 20 meq PO DAILY #0 tab.er.prt 11/05/12 Alendronate Sodium [Fosamax] 35 mg PO KELLER 09/01/15 Atorvastatin Ca [Lipitor] 10 mg PO HS 09/01/15 Latanoprost 0.005% Eye Drops [Xalatan 0.005% Eye Drops -] 1 drop OU HS 09/01/15 Pantoprazole Sodium 40 mg PO DAILY 06/30/16 Acetaminophen [Tylenol .Regular Strength -] 650 mg PO Q4H PRN tablet 05/07/17 Diltiazem Cd [Cardizem Cd -] 120 mg PO BID cap.cd.24h 05/07/17 Docusate Sodium [Colace -] 100 mg PO TID capsule 05/07/17 Enoxaparin [Lovenox -] 40 mg SQ DAILY disp.syrin 05/07/17 Ibuprofen [Advil -] 200 mg PO Q6H PRN tablet 05/07/17 Loratadine [Claritin -] 10 mg PO DAILY tablet 05/07/17 Mineral Oil/Petrolat,Wht/Water [Eucerin (Small Jar) -] 1 applic TP DAILY jar Nystatin Oral Suspension - [Nystatin Oral Susp 673655 Units/5 ML -] 500,000 units PO Q6HPO cup 05/07/17 Polyethylene Glycol 3350 [Miralax 119 gm Btl -] 17 gm PO BID bottle 05/07/17 Prednisone [Deltasone -] 10 mg PO DAILY tablet 05/07/17 Torsemide [Demadex -] 60 mg PO DAILY tablet 05/07/17 Anemia: Yes (BLOOD TRANSFUSION) Asthma: No Cancer: No Cardiac Disorders: No CVA: No COPD: Yes (USES O2 AT HOME 2 LITERS) CHF: No Dementia: No Diabetes: No GI Disorders: Yes Disorders: No HTN: Yes Hypercholesterolemia: Yes Liver Disease: No Seizures: No Thyroid Disease: No - Surgical History Abdominal Surgery: No Appendectomy: No Cardiac Surgery: No Cholecystectomy: No Lung Surgery: No Neurologic Surgery: No Orthopedic Surgery: No - Suicide/Smoking/Psychosocial Hx Smoking Status: Yes Smoking History: Current every day smoker Have you smoked in the past 12 months: No Number of Cigarettes Smoked Daily: 0 If you are a former smoker, when did you quit?: Over 15 years ago Information on smoking cessation initiated: No Hx Alcohol Use: No Drug/Substance Use Hx: No Substance Use Type: None Hx Substance Use Treatment: No Review of Systems - Review of Systems Able to Perform ROS?: Yes Constitutional: No: Symptoms Reported HEENTM: No: Symptoms Reported Respiratory: Yes: See HPI, Shortness of Breath, SOB with Exertion, SOB at Rest. No: Productive cough Cardiac (ROS): No: Symptoms Reported ABD/GI: No: Symptoms Reported : No: Symptoms Reported Musculoskeletal: No: Symptoms Reported Integumentary: No: Symptoms Reported Neurological: No: Symptoms reported *Physical Exam - Vital Signs Last Vital Signs Temp Pulse Resp BP Pulse Ox 100.4 F H 142 H 18 141/70 98 05/25/17 05:33 05/25/17 05:33 05/25/17 05:33 05/25/17 05:33 05/25/17 05:33 - Physical Exam General Appearance: Yes: Nourished, Appropriately Dressed. No: Apparent Distress HEENT: positive: EOMI Respiratory/Chest: positive: Crackles, Rhonchi. negative: Chest Tender Cardiovascular: positive: Regular Rhythm, Tachycardia Gastrointestinal/Abdominal: positive: Normal Bowel Sounds, Flat, Soft. negative : Tender Musculoskeletal: positive: Normal Inspection. negative: CVA Tenderness Extremity: positive: Normal Capillary Refill, Normal Inspection, Normal Range of Motion, Pedal Edema, Swelling, Other (hematomas left leg) Integumentary: positive: Normal Color, Dry, Diaphoresis ED Treatment Course - RADIOLOGY Radiology Studies Ordered: Category Date Time Status CHEST X-RAY PORTABLE* [RAD] Stat Radiology 05/25/17 05:38 Taken Medical Decision Making - Medical Decision Making 05/25/17 06:11 EKG: Sinus tachycardia with occasional premature ventricular complexes. Biatrial enlargement. Nonspecific st and t abnormality. 05/25/17 06:14 Septic workup. *DC/Admit/Observation/Transfer - Referrals Referrals: Kaleb Ahumada MD [Primary Care Provider] - - Patient Instructions - Post Discharge Activity
[2017-05-25 06:14] LABS: VENOUS PC02 72.4 mmHg (38-52); VENOUS PH 7.31 (7.32-7.42)
[2017-05-25 06:23] LABS: BASO % 0.2 % (0-2.0); EOS % 0.5 % (0-4.5); HEMATOCRIT 35.7 % (32.4-45.2); HEMOGLOBIN 11.3 GM/dL (10.7-15.3); LYMPH % 0.9 % (8-40); MCH 26.6 pg (25.7-33.7); MCHC 31.7 g/dl (32.0-36.0); MEAN CELL VOLUME 83.8 fl (80-96); MEAN PLT VOLUME 8.6 fl (7.5-11.1); MONO % 0.7 % (3.8-10.2); NEUT % 97.7 % (42.8-82.8); PLATELET COUNT 209 K/MM3 (134-434); RBC 4.26 M/mm3 (3.60-5.2); RDW 20.3 % (11.6-15.6); WHITE BLOOD COUNT 10.3 K/mm3 (4.0-10.0)
[2017-05-25 06:36] LABS: INR 0.96 (0.82-1.09); PROTHROMBIN TIME (PATIENT) 10.8 SEC (9.98-11.88)
[2017-05-25 06:39] LABS: ACTIVATED PTT 26.7 SECONDS (26.9-34.4)
[2017-05-25 06:45] LABS: MAGNESIUM 1.8 mg/dL (1.8-2.4); PHOSPHOROUS 3.5 mg/dL (2.5-4.9)
[2017-05-25 06:48] LABS: ALBUMIN 3.1 g/dl (3.4-5.0); ANION GAP 7 (8-16); BLOOD UREA NITROGEN 13 mg/dL (7-18); CALCIUM 8.1 mg/dL (8.5-10.1); CHLORIDE 94 mmol/L (98-107); CO2 37 mmol/L (21-32); CREATININE 0.8 mg/dL (0.55-1.02); GLUCOSE,RANDOM 144 mg/dL (74-106); POTASSIUM 3.6 mmol/L (3.5-5.1); SGOT/AST 24 U/L (15-37); SGPT/ALT 52 U/L (12-78); SODIUM 138 mmol/L (136-145); TOT PROT 6.5 g/dl (6.4-8.2)
[2017-05-25 06:50] LABS: ALK PHOS 195 U/L (45-117); BILIRUBIN,TOTAL 0.4 mg/dL (0.2-1.0)
--- NOTE | 2017-05-25 06:51 | PDOC ---
Attending Attestation - Resident Resident Name: Victorino Holley - ED Attending Attestation I have performed the following: I have examined & evaluated the patient, The case was reviewed & discussed with the resident, I agree w/resident's findings & plan, Exceptions are as noted - HPI HPI: 05/31/17 17:46 Please see medical decision making for HPI details - Physicial Exam PE: Tachypneic, tachycardic, speaking in full sentences Pulm: decreased breath sounds, rales at bases, occasional exp wheeze CV: tachycardic, regular LE: no edema - Medical Decision Making 05/25/17 06:52 Pt seen and examined with Dr. Holley, PGY1. Pt with complex hx of COPD/CHF, recent hip frx s/p repair in apr 2017, recently discharged from inpt stay, presenting with SOB x2 days but worsening tonight. Pt tachypneic on arrival, slight wheezing, decreased breath sounds throughout lung kwok. Reportedly with low O2 sat on arrival. CXR with no s/o infiltrate, does not appear overloaded. Ddx includes COPD exacerbation vs PE. PCO2 in 70s, will initiate bipap for CO2 retention/hypercarbia. Pt tachycardic 130s on arrival, recent surgery and hospitalization, pt pending CT chest with IV contrast to eval for PE. EKG with STD in lateral leads, will trend troponin and EKG.
--- NOTE | 2017-05-25 07:39 | PDOC ---
*Physical Exam - Vital Signs Last Vital Signs Temp Pulse Resp BP Pulse Ox 100.4 F H 142 H 18 141/70 99 05/25/17 05:33 05/25/17 05:33 05/25/17 05:33 05/25/17 05:33 05/25/17 07:30 05/25/17 07:32 Patient's care signed out to me at the beginning of my shift. 76 YOF with h/o CHF, COPD, CVA, femur fracture and surgical repair about a month ago (DC from [facility] on 05/05/17) who was BIBA for acute onset SOB awoke her this AM from sleep. Had breathing tx x2 per EMS and placed on nonrebreather. On arrival VS notable for temp 100.4, tachycardic but SR, normotensive. On VBG PCO2 72.4, CT PE protocol ordered and awaiting results. - Physical Exam General Appearance: Yes: Appropriately Dressed, Moderate Distress, Other ( Patient on BiPAP, tachypneic, speaking occasional 3 word sentences, paradoxical breathing, intercostal retractions, ) HEENT: positive: EOMI, ALEXI, Normal ENT Inspection. negative: Pharyngeal Erythema, Rhinorrhea Neck: positive: Trachea midline, Supple. negative: Tender, Lymphadenopathy (R) , Lymphadenopathy (L) Respiratory/Chest: positive: Lungs Clear, Labored Respiration, Decreased Breath Sounds, Paradoxal Breathing, Wheezing (faint expiratory) Cardiovascular: positive: Regular Rhythm, S1, S2, Tachycardia. negative: Edema , JVD Gastrointestinal/Abdominal: positive: Normal Bowel Sounds, Soft. negative: Tender Musculoskeletal: positive: Normal Inspection. negative: Decreased Range of Motion Extremity: positive: Normal Capillary Refill, Normal Inspection, Normal Range of Motion, Other (warm to the touch). negative: Tender, Cyanosis Integumentary: positive: Normal Color, Dry, Warm. negative: Cyanotic, Erythema , Jaundice, Mottled, Diaphoresis Neurologic: positive: switcher II-XII NML intact (grossly), Fully Oriented, Alert, Normal Mood/Affect, Normal Response, Motor Strength 5/ ED Treatment Course - LABORATORY CBC & Chemistry Diagram: 05/25/17 05:55 05/25/17 05:55 - ADDITIONAL ORDERS Additional order review: Laboratory Results 05/25/17 05/25/17 05/25/17 05:55 05:55 05:55 PT with INR INR PTT (Actin FS) VBG pH 7.31 L POC VBG pCO2 72.4 H* POC VBG pO2 117.0 H Mixed VBG HCO3 35.6 H Sodium 138 Potassium 3.6 Chloride 94 L Carbon Dioxide 37 H Anion Gap 7 L BUN 13 Creatinine 0.8 Creat Clearance w eGFR > 60 Random Glucose 144 H Lactic Acid 1.9 Calcium 8.1 L Phosphorus Magnesium Total Bilirubin 0.4 D AST 24 ALT 52 Alkaline Phosphatase 195 H Creatine Kinase 24 L Troponin I < 0.02 Total Protein 6.5 Albumin 3.1 L 05/25/17 05/25/17 05:55 05:55 PT with INR 10.80 INR 0.96 PTT (Actin FS) 26.7 L VBG pH POC VBG pCO2 POC VBG pO2 Mixed VBG HCO3 Sodium Potassium Chloride Carbon Dioxide Anion Gap BUN Creatinine Creat Clearance w eGFR Random Glucose Lactic Acid Calcium Phosphorus 3.5 Magnesium 1.8 Total Bilirubin AST ALT Alkaline Phosphatase Creatine Kinase Troponin I Total Protein Albumin 05/25/17 05:55 RBC 4.26 MCV 83.8 MCHC 31.7 L RDW 20.3 H D MPV 8.6 Neutrophils % 97.7 H Lymphocytes % 0.9 L Monocytes % 0.7 L D Eosinophils % 0.5 Basophils % 0.2 - Medications Given in the ED: ED Medications Discontinued Medications Generic Name Dose Route Start Last Admin Trade Name Freq PRN Reason Stop Dose Admin Albuterol/Ipratropium 1 amp 05/25/17 05:38 05/25/17 06:31 Duoneb - NEB 05/25/17 05:39 1 amp ONCE ONE Administration Magnesium Sulfate 1 gm 05/25/17 05:39 05/25/17 05:53 Magnesium Sulfate IVPB 05/25/17 05:40 1 gm ONCE ONE Administration Methylprednisolone Sodium Succinate 125 mg 05/25/17 05:39 05/25/17 05:53 Solu-Medrol - IVPUSH 05/25/17 05:40 125 mg ONCE ONE Administration Medical Decision Making - Medical Decision Making 05/25/17 07:57 At this point patient is tachycardic to 125, pulse ox is 91% on BiPAP with 30% FiO2, sleepy but arousable with conversation. 05/25/17 08:22 ABG drawn, FiO2 increased to 40, BP measured in the mid-80s systolic once but re -checked to be low 100s systolic. Patient taken to CT with her RN. 05/25/17 10:00 Chest CTA without e/o PE but with RLL mucus plugs Called lab about patient's BNP (not resulted yet). Ordered is saline neb, azithromycin, awaiting BNP results to decide on more IVF. 05/25/17 10:34 Patient noted to be attempting to pull her BiPAP off, also tube to ventilator fell off. Patient noted to have increased WOB and states tiring out. 05/25/17 10:54 Patient again pulls me into the room and states she is tiring out. She states that she would want intubation if needed as the BiPAP is not working well enough now. Dr. Evans spoke with Dr. Patel (Pt's supervisor [place]) who is notified of the patient's condition. Plan at this time is to RSI with ketamine and rocuronium. 05/25/17 12:02 Patient intubated with sz [address] tube[address] Spoke with Dr. Carranza who agrees with plan for ICU placement. 05/25/17 12:[address] Zuniga, admitting for Dr. Ahumada, who agrees with plan. Decision to admit order placed and consult to ICU placed. 05/25/17 15:00 Patient's repeat ABG with improved PCO2. She requires re-bolus of Versed and drip rate titrated up. 05/25/17 18:29 Patient requires repeat 2 mg bolus of Versed as muscles are tensing and she is increasingly tachycardic. 05/25/17 18:42 Recommend Fentanyl for any future bolus in the ED given soft pressures. *DC/Admit/Observation/Transfer Diagnosis at time of Disposition: COPD exacerbation Respiratory failure Qualifiers: Chronicity: acute Respiratory failure complication: hypoxia and hypercapnia Qualified Code(s): J96.01 - Acute respiratory failure with hypoxia Sepsis Qualifiers: Sepsis type: sepsis due to unspecified organism Qualified Code(s): A41.9 - Sepsis, unspecified organism - Discharge Dispostion Condition at time of disposition: Guarded Admit: Yes - Referrals - Patient Instructions - Post Discharge Activity
[2017-05-25] MEDS ORDERED: SODIUM CHLORIDE 0.9% 1000 ML INFUS.BAG IV ONE ×2 (08:16→11:46)
[2017-05-25 08:40] LABS: ARTERIAL BLD GAS O2 SATURATION 92.9 % (90-98.9); ARTERIAL BLOOD GAS pH 7.31 (7.35-7.45)
[2017-05-25 08:42] LABS: ARTERIAL BLOOD GAS PCO2 68.9 mmHg (35-45)
[2017-05-25] MEDS ORDERED: SODIUM CHLORIDE FOR INHALATION 3 ML VIAL.NEB IH ONE (09:55)
[2017-05-25] MEDS ORDERED: AZITHROMYCIN IVPB 500 MG in DEXTROSE 5%-WATER - 250 ML IVPB ONE (09:56)
[2017-05-25 10:15] LABS: N-TERMINAL BNP 398.34 pg/ml (5-450)
[2017-05-25 10:41] LABS: ALLENS TEST POSITIVE
[2017-05-25] MEDS ORDERED: PIPERACILLIN/TAZOB 4.5 GM 4.5 GM in DEXTROSE 5%-WATER - 100 ML IVPB ONE (11:01)
[2017-05-25] MEDS ORDERED: VANCOMYCIN 1,000 MG in DEXTROSE 5%-WATER - 250 ML IVPB ONE (11:01)
--- NOTE | 2017-05-25 11:01 | PDOC ---
*Physical Exam - Vital Signs Last Vital Signs Temp Pulse Resp BP Pulse Ox 100.3 F H 117 H 23 106/64 99 05/25/17 09:26 05/25/17 09:26 05/25/17 09:26 05/25/17 09:26 05/25/17 09:26 <Chelsie Cartagena - Last Filed: 05/25/17 11:04> - Vital Signs Last Vital Signs Temp Pulse Resp BP Pulse Ox 100.3 F H 117 H 23 106/64 99 05/25/17 09:26 05/25/17 09:26 05/25/17 09:26 05/25/17 09:26 05/25/17 09:26 <Niranjan Evansilda - Last Filed: 05/25/17 18:47> ED Treatment Course - LABORATORY CBC & Chemistry Diagram: 05/25/17 05:55 05/25/17 05:55 - ADDITIONAL ORDERS Additional order review: Laboratory Results 05/25/17 05/25/17 05/25/17 08:30 06:09 05:55 PT with INR INR PTT (Actin FS) Anticoagulation Therapy No Result Required. Puncture Site Left radial ABG pH 7.31 L ABG pCO2 at Pt Temp 68.9 H* ABG pO2 at Pt Temp 71.0 D ABG HCO3 33.7 H ABG O2 Sat (Measured) 92.9 ABG O2 Content 14.6 L ABG Base Excess 6.0 H Edilberto Test Positive VBG pH POC VBG pCO2 POC VBG pO2 Mixed VBG HCO3 Carboxyhemoglobin 2.0 O2 Delivery Device No Result Required. Oxygen Flow Rate Yes Vent Mode No Result Required. Vent Rate No Result Required. Mechanical Rate No Result Required. Pressure Support Vent No Result Required. Sodium Potassium Chloride Carbon Dioxide Anion Gap BUN Creatinine Creat Clearance w eGFR Random Glucose Lactic Acid Calcium Phosphorus Magnesium Total Bilirubin AST ALT Alkaline Phosphatase Creatine Kinase Troponin I B-Natriuretic Peptide Cancelled Total Protein Albumin Blood Type O POSITIVE Antibody Screen Negative 05/25/17 05/25/17 05/25/17 05:55 05:55 05:55 PT with INR INR PTT (Actin FS) Anticoagulation Therapy Puncture Site ABG pH ABG pCO2 at Pt Temp ABG pO2 at Pt Temp ABG HCO3 ABG O2 Sat (Measured) ABG O2 Content ABG Base Excess Edilberto Test VBG pH 7.31 L POC VBG pCO2 72.4 H* POC VBG pO2 117.0 H Mixed VBG HCO3 35.6 H Carboxyhemoglobin O2 Delivery Device Oxygen Flow Rate Vent Mode Vent Rate Mechanical Rate Pressure Support Vent Sodium 138 Potassium 3.6 Chloride 94 L Carbon Dioxide 37 H Anion Gap 7 L BUN 13 Creatinine 0.8 Creat Clearance w eGFR > 60 Random Glucose 144 H Lactic Acid 1.9 Calcium 8.1 L Phosphorus Magnesium Total Bilirubin 0.4 D AST 24 ALT 52 Alkaline Phosphatase 195 H Creatine Kinase 24 L Troponin I < 0.02 B-Natriuretic Peptide 398.34 Total Protein 6.5 Albumin 3.1 L Blood Type Antibody Screen 05/25/17 05/25/17 05:55 05:55 PT with INR 10.80 INR 0.96 PTT (Actin FS) 26.7 L Anticoagulation Therapy Puncture Site ABG pH ABG pCO2 at Pt Temp ABG pO2 at Pt Temp ABG HCO3 ABG O2 Sat (Measured) ABG O2 Content ABG Base Excess Edilberto Test VBG pH POC VBG pCO2 POC VBG pO2 Mixed VBG HCO3 Carboxyhemoglobin O2 Delivery Device Oxygen Flow Rate Vent Mode Vent Rate Mechanical Rate Pressure Support Vent Sodium Potassium Chloride Carbon Dioxide Anion Gap BUN Creatinine Creat Clearance w eGFR Random Glucose Lactic Acid Calcium Phosphorus 3.5 Magnesium 1.8 Total Bilirubin AST ALT Alkaline Phosphatase Creatine Kinase Troponin I B-Natriuretic Peptide Total Protein Albumin Blood Type Antibody Screen 05/25/17 07:13 Influenza Types A,B Antigen (LASHAE) - Final Nasopharyngeal Swab - Final 05/25/17 05:55 RBC 4.26 MCV 83.8 MCHC 31.7 L RDW 20.3 H D MPV 8.6 Neutrophils % 97.7 H Lymphocytes % 0.9 L Monocytes % 0.7 L D Eosinophils % 0.5 Basophils % 0.2 - Medications Given in the ED: ED Medications Discontinued Medications Generic Name Dose Route Start Last Admin Trade Name Freq PRN Reason Stop Dose Admin Albuterol/Ipratropium 1 amp 05/25/17 05:38 05/25/17 06:31 Duoneb - NEB 05/25/17 05:39 1 amp ONCE ONE Administration Magnesium Sulfate 1 gm 05/25/17 05:39 05/25/17 05:53 Magnesium Sulfate IVPB 05/25/17 05:40 1 gm ONCE ONE Administration Methylprednisolone Sodium Succinate 125 mg 05/25/17 05:39 05/25/17 05:53 Solu-Medrol - IVPUSH 05/25/17 05:40 125 mg ONCE ONE Administration Sodium Chloride 500 ml 05/25/17 08:16 05/25/17 08:17 Normal Saline - IV 05/25/17 08:17 500 ml ONCE ONE Administration <Chelsie Cartagena - Last Filed: 05/25/17 11:04> - LABORATORY CBC & Chemistry Diagram: 05/25/17 05:55 05/25/17 05:55 - ADDITIONAL ORDERS Additional order review: Laboratory Results 05/25/17 05/25/17 05/25/17 08:30 06:09 05:55 PT with INR INR PTT (Actin FS) Anticoagulation Therapy No Result Required. Puncture Site Left radial ABG pH 7.31 L ABG pCO2 at Pt Temp 68.9 H* ABG pO2 at Pt Temp 71.0 D ABG HCO3 33.7 H ABG O2 Sat (Measured) 92.9 ABG O2 Content 14.6 L ABG Base Excess 6.0 H Edilberto Test Positive VBG pH POC VBG pCO2 POC VBG pO2 Mixed VBG HCO3 Carboxyhemoglobin 2.0 O2 Delivery Device No Result Required. Oxygen Flow Rate Yes Vent Mode No Result Required. Vent Rate No Result Required. Mechanical Rate No Result Required. Pressure Support Vent No Result Required. Sodium Potassium Chloride Carbon Dioxide Anion Gap BUN Creatinine Creat Clearance w eGFR Random Glucose Lactic Acid Calcium Phosphorus Magnesium Total Bilirubin AST ALT Alkaline Phosphatase Creatine Kinase Troponin I B-Natriuretic Peptide Cancelled Total Protein Albumin Blood Type O POSITIVE Antibody Screen Negative 05/25/17 05/25/17 05/25/17 05:55 05:55 05:55 PT with INR INR PTT (Actin FS) Anticoagulation Therapy Puncture Site ABG pH ABG pCO2 at Pt Temp ABG pO2 at Pt Temp ABG HCO3 ABG O2 Sat (Measured) ABG O2 Content ABG Base Excess Edilberto Test VBG pH 7.31 L POC VBG pCO2 72.4 H* POC VBG pO2 117.0 H Mixed VBG HCO3 35.6 H Carboxyhemoglobin O2 Delivery Device Oxygen Flow Rate Vent Mode Vent Rate Mechanical Rate Pressure Support Vent Sodium 138 Potassium 3.6 Chloride 94 L Carbon Dioxide 37 H Anion Gap 7 L BUN 13 Creatinine 0.8 Creat Clearance w eGFR > 60 Random Glucose 144 H Lactic Acid 1.9 Calcium 8.1 L Phosphorus Magnesium Total Bilirubin 0.4 D AST 24 ALT 52 Alkaline Phosphatase 195 H Creatine Kinase 24 L Troponin I < 0.02 B-Natriuretic Peptide 398.34 Total Protein 6.5 Albumin 3.1 L Blood Type Antibody Screen 05/25/17 05/25/17 05:55 05:55 PT with INR 10.80 INR 0.96 PTT (Actin FS) 26.7 L Anticoagulation Therapy Puncture Site ABG pH ABG pCO2 at Pt Temp ABG pO2 at Pt Temp ABG HCO3 ABG O2 Sat (Measured) ABG O2 Content ABG Base Excess Edilberto Test VBG pH POC VBG pCO2 POC VBG pO2 Mixed VBG HCO3 Carboxyhemoglobin O2 Delivery Device Oxygen Flow Rate Vent Mode Vent Rate Mechanical Rate Pressure Support Vent Sodium Potassium Chloride Carbon Dioxide Anion Gap BUN Creatinine Creat Clearance w eGFR Random Glucose Lactic Acid Calcium Phosphorus 3.5 Magnesium 1.8 Total Bilirubin AST ALT Alkaline Phosphatase Creatine Kinase Troponin I B-Natriuretic Peptide Total Protein Albumin Blood Type Antibody Screen 05/25/17 07:13 Influenza Types A,B Antigen (LASHAE) - Final Nasopharyngeal Swab - Final 05/25/17 05:55 RBC 4.26 MCV 83.8 MCHC 31.7 L RDW 20.3 H D MPV 8.6 Neutrophils % 97.7 H Lymphocytes % 0.9 L Monocytes % 0.7 L D Eosinophils % 0.5 Basophils % 0.2 - Medications Given in the ED: ED Medications Discontinued Medications Generic Name Dose Route Start Last Admin Trade Name Freq PRN Reason Stop Dose Admin Albuterol/Ipratropium 1 amp 05/25/17 05:38 05/25/17 06:31 Duoneb - NEB 05/25/17 05:39 1 amp ONCE ONE Administration Magnesium Sulfate 1 gm 05/25/17 05:39 05/25/17 05:53 Magnesium Sulfate IVPB 05/25/17 05:40 1 gm ONCE ONE Administration Methylprednisolone Sodium Succinate 125 mg 05/25/17 05:39 05/25/17 05:53 Solu-Medrol - IVPUSH 05/25/17 05:40 125 mg ONCE ONE Administration Sodium Chloride 500 ml 05/25/17 08:16 05/25/17 08:17 Normal Saline - IV 05/25/17 08:17 500 ml ONCE ONE Administration <Maribell Evans - Last Filed: 05/25/17 18:47> Medical Decision Making - Medical Decision Making 05/25/17 11:[address] Ahumada but were told he does not work on Tuesdays and was unable to take our call. <Chelsie Cartagena - Last Filed: 05/25/17 11:04> - Medical Decision Making 05/25/17 18:43 Patient signed out to me by overnight attending, was pending CTA to rule out PE. Patient was started on BiPAP overnight. On my evaluation initially, the patient reported improvement on BiPAP. Repeat ABG was stable, however subsequent ABG is unchanged with no improvement. Patient began to become more lethargic and complaining of feeling tired. We called the patient's son and spoke with him and also consulted her commercial assistant Dr. Patel. The decision was made to intubate the patient given she was becoming tired and due to poor improvement on the BiPAP. Using 100 mg of ketamine and the 100 mg of rocuronium , the patient was intubated with an 8.0 ET tube via direct laryngoscopy with no complications. A Versed drip was initiated for sedation. Chest x-ray showed tube to be in good place. ABG with improved CO2. Patient has been admitted to Dr. Zuniga and is awaiting an ICU bed. <Maribell Evans - Last Filed: 05/25/17 18:47> *DC/Admit/Observation/Transfer <Chelsie Cartagena - Last Filed: 05/25/17 11:04> <Maribell Evans - Last Filed: 05/25/17 18:47> Diagnosis at time of Disposition: COPD exacerbation Respiratory failure Qualifiers: Chronicity: acute Respiratory failure complication: hypoxia and hypercapnia Qualified Code(s): J96.01 - Acute respiratory failure with hypoxia Sepsis Qualifiers: Sepsis type: sepsis due to unspecified organism Qualified Code(s): A41.9 - Sepsis, unspecified organism - Discharge Dispostion Condition at time of disposition: Guarded
[2017-05-25] MEDS ORDERED: ROCURONIUM BROMIDE 50 MG/5 ML VIAL IVPUSH ONE (11:13)
[2017-05-25] MEDS ORDERED: KETAMINE HCL 200 MG/20 ML VIAL IVPUSH ONE (11:13)
[2017-05-25] MEDS ORDERED: KETAMINE HCL 200 MG/20 ML VIAL ONE (11:16)
[2017-05-25] MEDS ORDERED: RAPID SEQUENCE INTUBATION KIT NR ONE ×2 (11:16→11:32)
[2017-05-25] MEDS ORDERED: AZITHROMYCIN IVPB 250 ML IVPB ONE (11:47)
[2017-05-25] MEDS ORDERED: VANCOMYCIN 1 GRAM (PRE-DOCKED) 1,000 MG/250 ML BAG IVPB ONE (11:47)
[2017-05-25] MEDS ORDERED: MIDAZOLAM HCL 2 MG/2 ML SINGLE DOSE VIAL ONE ×3 (11:53→18:31)
[2017-05-25] MEDS ORDERED: MIDAZOLAM HCL 2 MG/2 ML SINGLE DOSE VIAL IVPUSH ONE ×3 (11:57→18:29)
[2017-05-25] MEDS ORDERED: MIDAZOLAM 100 MG in SODIUM CHLORIDE 100 ML IVPB SCH (12:00)
[2017-05-25] MEDS ORDERED: SODIUM CHLORIDE 0.9% 500 ML INFUS.BAG IV ONE (12:30)
[2017-05-25] MEDS ORDERED: ACETAMINOPHEN 325 MG SUPP.RECT PR PRN (13:34)
--- NOTE | 2017-05-25 13:38 | HP ---
Admitting History and Physical - Primary Care Physician PCP: Kaleb Ahumada - Admission Chief Complaint: Unable to obtain History of Present Illness: Ms Hadley is a 76 year old female who presents from the SNF with acute SOB. Upon seeing patient has been intubated secondary to hypercapneic respiratory failure so history is from ER physician. Patient was recently discharged to SNF after hip replacement that was complicated by COPD exacerbation. She presents today to the ED with acute onset shortness of breath. She says she was woken up by difficulty breathing and was brought here. In the ED she was noted to be tachypneic and had respiratory acidosis. BiPAP was attempted but patient was not improving and required intubation. History Source: Medical Record Limitations to Obtaining History: Clinical Condition - Past Medical History Cardiovascular: Yes: HTN Pulmonary: Yes: COPD, Other (oxygen at home) Gastrointestinal: Yes: Other (History of ulcer disease diagnosed 3 years ago when patient presented with anemia) Renal/: Yes: UTI Heme/Onc: Yes: Anemia Musculoskeletal: Yes: Osteoarthritis - Past Surgical History Past Surgical History: Yes: None - Smoking History Smoking history: Current every day smoker Have you smoked in the past 12 months: No Aproximately how many cigarettes per day: 0 If you are a former smoker, when did you quit?: Over 15 years ago - Alcohol/Substance Use Hx Alcohol Use: No History of Substance Use: reports: None - Social History Usual Living Arrangement: Yes: Alone, [facility] ADL: Independent 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, , 2 children History of Recent Travel: No Home Medications - Allergies Allergies/Adverse Reactions: Allergies Allergy/AdvReac Type Severity Reaction Status Date / Time No Known Allergies Allergy Verified 05/25/17 05:33 - Home Medications Home Medications: Ambulatory Orders Fluticasone/Salmeterol [Advair 250-50 Diskus] 1 each IH BID 10/15/11 Tiotropium [place] [Spiriva] 18 mcg IH DAILY 10/15/11 Montelukast Na [Singulair -] 10 mg PO HS #0 tablet 10/20/11 Multivitamins [Multivit ([facility] Formulary)] 1 udtab PO DAILY #0 tab 10/20/11 Ferrous Sulfate [Feosol] 325 mg PO TID 01/18/12 Calcium Carbonate/Vitamin D3 [Calcium 600-Vit D3 200 Tablet] 1 each PO DAILY 10/13 Docosahexanoic Acid/Epa [Fish Oil Softgel] 1 each PO DAILY 11/05/12 Potassium Chloride [K-Dur] 20 meq PO DAILY #0 tab.er.prt 11/05/12 Alendronate Sodium [Fosamax] 35 mg PO KELLER 09/01/15 Atorvastatin Ca [Lipitor] 10 mg PO HS 09/01/15 Latanoprost 0.005% Eye Drops [Xalatan 0.005% Eye Drops -] 1 drop OU HS 09/01/15 Diltiazem Cd [Cardizem Cd -] 120 mg PO BID cap.cd.24h 05/07/17 Enoxaparin [Lovenox -] 40 mg SQ DAILY disp.syrin 05/07/17 Loratadine [Claritin -] 10 mg PO DAILY tablet 05/07/17 Mineral Oil/Petrolat,Wht/Water [Eucerin (Small Jar) -] 1 applic TP DAILY jar Polyethylene Glycol 3350 [Miralax 119 gm Btl -] 17 gm PO BID bottle 05/07/17 Prednisone [Deltasone -] 10 mg PO DAILY tablet 05/07/17 Torsemide [Demadex -] 60 mg PO DAILY tablet 05/07/17 Acetaminophen [Tylenol .Regular Strength -] 650 mg PO Q6H PRN 05/25/17 Albuterol 2.5/Ipratropium 0.5 [Duoneb -] 1 amp IH QSHIFT 05/25/17 Ascorbic Acid [Vitamin C -] 500 mg PO TID 05/25/17 Chlorpheniramine/Dextromethorp [Robitussin Long-Acting Liq] 15 ml PO Q6H Docusate Sodium [Colace -] 300 mg PO HS 05/25/17 Menthol/Zinc Oxide [Calmoseptine Ointment] 71 gm TP QSHIFT 05/25/17 Nystatin Oral Suspension - [Nystatin Oral Susp 288070 Units/5 ML -] 500,000 units PO QID 05/25/17 Omeprazole Magnesium [Prilosec Otc] 20 mg PO DAILY 05/25/17 Sodium Chloride Nasal [place] [[place] Nasal [place]] 2 spray NS QSHIFT Family Disease History - Family Disease History Family Disease History: Heart Disease: Father, Other: Mother (Alzheimers Dementia) Review of Systems Unable to obtain ROS, reason: intubated Physical Examination Vital Signs: Vital Signs Temperature 37.9 C H 05/25/17 09:26 Pulse Rate 114 H 05/25/17 12:52 Respiratory Rate 16 05/25/17 12:52 Blood Pressure 113/69 05/25/17 12:52 O2 Sat by Pulse Oximetry (%) 100 05/25/17 12:52 Constitutional: Yes: Other (sedated) Eyes: Yes: Conjunctiva Clear, EOM Intact, PERRL HENT: Yes: Atraumatic, Normocephalic Cardiovascular: Yes: Tachycardia. No: Pulse Irregular, Gallop, Murmur, Rub Respiratory: Yes: Regular, CTA Bilaterally, Intubated, Mechanically Ventilated. No: Rales, Rhonchi, Wheezes Gastrointestinal: Yes: Normal Bowel Sounds, Soft. No: Distention, Tenderness Extremities: Yes: WNL Edema: No Labs: CBC, BMP 05/25/17 05:55 05/25/17 05:55 Imaging - Results Chest X-ray: Report Reviewed, Image Reviewed Cat Scan: Report Reviewed, Image Reviewed Problem List - Problems (1) Acute and chronic respiratory failure with hypercapnia Assessment/Plan: -CT scan reviewed, showing mucous plugging -unclear source of hypercapneic respiratory failure -fever noted on admission -influenza negative -cultures pending -no pneumonia noted on CT scan -pulmonary made aware -intubated and admission to the ICU -consult ID for antibiotics Code(s): J96.22 - ACUTE AND CHRONIC RESPIRATORY FAILURE WITH HYPERCAPNIA (2) COPD exacerbation Assessment/Plan: -causing hypercapneic respiratory failure -intubated -solumedrol -pulmonary consulted Code(s): J44.1 - CHRONIC OBSTRUCTIVE PULMONARY DISEASE W (ACUTE) EXACERBATION (3) CHF (congestive heart failure) Assessment/Plan: -will hold torsemide at this time -gentle hydration with close monitoring since intubated and npo Code(s): I50.9 - HEART FAILURE, UNSPECIFIED Qualifiers: Congestive heart failure type: diastolic Congestive heart failure chronicity: chronic Qualified Code(s): I50.32 - Chronic diastolic (congestive ) heart failure (4) Fracture, hip Assessment/Plan: -reason for being at SNF -continue lovenox for DVT PPx Code(s): S72.009A - FRACTURE OF UNSP PART OF NECK OF UNSP FEMUR, INIT Qualifiers: Encounter type: initial encounter Fracture type: closed Laterality: left Qualified Code(s): S72.002A - Fracture of unspecified part of neck of left femur, initial encounter for closed fracture (5) Hypertension Assessment/Plan: -low to normal blood pressure -hold antihypertensives -gentle hydration -monitor for improvement Code(s): I10 - ESSENTIAL (PRIMARY) HYPERTENSION Assessment/Plan 67 minutes spent in critical care time with this patient
[2017-05-25] MEDS ORDERED: SODIUM CHLORIDE 1,000 ML IV SCH (13:45)
[2017-05-25 14:57] LABS: ARTERIAL BLOOD GAS BASE EXCESS 0.8 meq/l (-2-2); ARTERIAL BLOOD GAS PCO2 58.3 mmHg (35-45); ARTERIAL BLOOD GAS PO2 97.9 mmHg (70-100)
[2017-05-25 14:58] LABS: ALLENS TEST POSITIVE
[2017-05-25] MEDS ORDERED: methylPREDNISolone NA SUCC 40 MG/1 ML VIAL ONE ×2 (15:58→20:53)
[2017-05-25] MEDS: methylPREDNISolone NA SUCC 40 MG/1 ML VIAL IVPUSH SCH ×2 (16:00→20:56)
--- NOTE | 2017-05-25 16:21 | CONSULT ---
Consultation: REQUESTING PROVIDER: CONSULT REQUEST: We have been asked to medically evaluate this patient for acute respiratory failure (intubated). HISTORY OF PRESENT ILLNESS: 76F with PMHx of CHF, HTN, anemia, severe COPD ( with home oxygen) and recent Left femur fracture (surgery on 04/28, discharged on 05/07) presenting with SOB x1 day. Pt was brought in by ambulance yesterday, given 2 albuterol tx, started on nonbreather with poor response, and now intubated and sedated. REVIEW OF SYSTEMS: Unable to assess CONSTITUTIONAL: Absent: fever, chills, diaphoresis, generalized weakness, malaise, loss of appetite, weight change HEENT: Absent: rhinorrhea, nasal congestion, throat pain, throat swelling, difficulty swallowing, mouth swelling, ear pain, eye pain, visual changes CARDIOVASCULAR: Absent: chest pain, syncope, palpitations, irregular heart rate, lightheadedness , peripheral edema RESPIRATORY: Absent: cough, shortness of breath, dyspnea with exertion, orthopnea, wheezing, stridor, hemoptysis GASTROINTESTINAL: Absent: abdominal pain, abdominal distension, nausea, vomiting, diarrhea, constipation, melena, hematochezia GENITOURINARY: Absent: dysuria, frequency, urgency, hesitancy, hematuria, flank pain, genital pain MUSCULOSKELETAL: Absent: myalgia, arthralgia, joint swelling, back pain, neck pain SKIN: Absent: rash, itching, pallor HEMATOLOGIC/IMMUNOLOGIC: Absent: easy bleeding, easy bruising, lymphadenopathy, frequent infections ENDOCRINE: Absent: unexplained weight gain, unexplained weight loss, heat intolerance, cold intolerance NEUROLOGIC: Absent: headache, focal weakness or paresthesias, dizziness, unsteady gait, seizure, mental status changes, bladder or bowel incontinence PSYCHIATRIC: Absent: anxiety, depression, suicidal or homicidal ideation, hallucinations. PHYSICAL EXAMINATION Vital Signs - 24 hr 05/25/17 05/25/17 05/25/17 05:33 06:09 06:30 Temperature 100.4 F H Pulse Rate 142 H Pulse Rate [ Apical] Respiratory 18 Rate Blood Pressure 141/70 Blood Pressure [Right Arm] O2 Sat by Pulse 98 98 98 Oximetry (%) 05/25/17 05/25/17 05/25/17 07:30 08:00 08:16 Temperature 100.4 F H 100.4 F H Pulse Rate Pulse Rate [ 130 H Apical] Respiratory 30 H Rate Blood Pressure Blood Pressure 86/51 [Right Arm] O2 Sat by Pulse 100 91 L Oximetry (%) 05/25/17 05/25/17 05/25/17 08:17 08:34 09:16 Temperature Pulse Rate Pulse Rate [ 123 H 120 H Apical] Respiratory 30 H Rate Blood Pressure Blood Pressure 94/57 93/67 [Right Arm] O2 Sat by Pulse 98 Oximetry (%) 05/25/17 05/25/17 05/25/17 09:20 09:26 11:24 Temperature 100.3 F H Pulse Rate Pulse Rate [ 117 H 132 H Apical] Respiratory 23 30 H Rate Blood Pressure Blood Pressure 106/64 121/65 [Right Arm] O2 Sat by Pulse 96 99 98 Oximetry (%) 05/25/17 05/25/17 05/25/17 11:37 11:39 11:40 Temperature Pulse Rate Pulse Rate [ 127 H 120 H Apical] Respiratory 30 H 16 Rate Blood Pressure Blood Pressure 117/83 92/61 [Right Arm] O2 Sat by Pulse 100 Oximetry (%) 05/25/17 05/25/17 05/25/17 11:50 11:58 12:15 Temperature Pulse Rate Pulse Rate [ 110 H 109 H Apical] Respiratory 16 Rate Blood Pressure Blood Pressure 94/60 109/60 [Right Arm] O2 Sat by Pulse Oximetry (%) 05/25/17 05/25/17 05/25/17 12:28 12:40 12:52 Temperature Pulse Rate Pulse Rate [ 110 H 113 H 114 H Apical] Respiratory 16 16 16 Rate Blood Pressure Blood Pressure 83/55 96/64 113/69 [Right Arm] O2 Sat by Pulse 100 100 Oximetry (%) 05/25/17 05/25/17 05/25/17 14:10 14:52 15:27 Temperature Pulse Rate 85 Pulse Rate [ 117 H 119 H Apical] Respiratory 16 16 18 Rate Blood Pressure Blood Pressure 97/52 102/58 [Right Arm] O2 Sat by Pulse 98 100 100 Oximetry (%) 05/25/17 05/25/17 15:46 15:52 Temperature Pulse Rate Pulse Rate [ Apical] Respiratory 16 16 Rate Blood Pressure Blood Pressure [Right Arm] O2 Sat by Pulse 100 Oximetry (%) GENERAL: Awake, alert, and fully oriented, in no acute distress. HEAD: Normal with no signs of trauma. EYES: Pupils equal, round and reactive to light, extraocular movements intact, sclera anicteric, conjunctiva clear. No lid lag. EARS, NOSE, THROAT: Ears normal, nares patent, oropharynx clear without exudates. Moist mucous membranes. NECK: Normal range of motion, supple without lymphadenopathy, JVD, or masses. LUNGS: Breath sounds equal, clear to auscultation bilaterally. No wheezes, and no crackles. No accessory muscle use. HEART: Regular rate and rhythm, normal S1 and S2 without murmur, rub or gallop. ABDOMEN: Soft, nontender, not distended, normoactive bowel sounds, no guarding, no rebound, no masses. No hepatomegaly or splenomegaly. MUSCULOSKELETAL: Normal range of motion at all joints. No bony deformities or tenderness. No CVA tenderness. UPPER EXTREMITIES: 2+ pulses, warm, well-perfused. No cyanosis. No clubbing. Cap refill <2 seconds. No peripheral edema. LOWER EXTREMITIES: 2+ pulses, warm, well-perfused. No calf tenderness. No peripheral edema. NEUROLOGICAL: Cranial nerves II-XII intact. Normal speech. Normal gait. PSYCHIATRIC: Cooperative. Good eye contact. Appropriate mood and affect. SKIN: Warm, dry, normal turgor, no rashes or lesions noted. Laboratory Results - last 24 hr 05/25/17 05/25/17 05/25/17 05:55 05:55 05:55 WBC 10.3 H RBC 4.26 Hgb 11.3 D Hct 35.7 D MCV 83.8 MCH 26.6 MCHC 31.7 L RDW 20.3 H D Plt Count 209 MPV 8.6 Neutrophils % 97.7 H Lymphocytes % 0.9 L Monocytes % 0.7 L D Eosinophils % 0.5 Basophils % 0.2 PT with INR 10.80 INR 0.96 PTT (Actin FS) 26.7 L Anticoagulation Therapy Puncture Site ABG pH ABG pCO2 at Pt Temp ABG pO2 at Pt Temp ABG HCO3 ABG O2 Sat (Measured) ABG O2 Content ABG Base Excess Edilberto Test VBG pH POC VBG pCO2 POC VBG pO2 Mixed VBG HCO3 Carboxyhemoglobin O2 Delivery Device Oxygen Flow Rate Vent Mode Vent Rate Mechanical Rate PEEP Pressure Support Vent Sodium Potassium Chloride Carbon Dioxide Anion Gap BUN Creatinine Creat Clearance w eGFR Random Glucose Lactic Acid Calcium Phosphorus 3.5 Magnesium 1.8 Total Bilirubin AST ALT Alkaline Phosphatase Creatine Kinase Troponin I B-Natriuretic Peptide Total Protein Albumin Blood Type Antibody Screen 05/25/17 05/25/17 05/25/17 05:55 05:55 05:55 WBC RBC Hgb Hct MCV MCH MCHC RDW Plt Count MPV Neutrophils % Lymphocytes % Monocytes % Eosinophils % Basophils % PT with INR INR PTT (Actin FS) Anticoagulation Therapy Puncture Site ABG pH ABG pCO2 at Pt Temp ABG pO2 at Pt Temp ABG HCO3 ABG O2 Sat (Measured) ABG O2 Content ABG Base Excess Edilberto Test VBG pH 7.31 L POC VBG pCO2 72.4 H* POC VBG pO2 117.0 H Mixed VBG HCO3 35.6 H Carboxyhemoglobin O2 Delivery Device Oxygen Flow Rate Vent Mode Vent Rate Mechanical Rate PEEP Pressure Support Vent Sodium 138 Potassium 3.6 Chloride 94 L Carbon Dioxide 37 H Anion Gap 7 L BUN 13 Creatinine 0.8 Creat Clearance w eGFR > 60 Random Glucose 144 H Lactic Acid 1.9 Calcium 8.1 L Phosphorus Magnesium Total Bilirubin 0.4 D AST 24 ALT 52 Alkaline Phosphatase 195 H Creatine Kinase 24 L Troponin I < 0.02 B-Natriuretic Peptide 398.34 Total Protein 6.5 Albumin 3.1 L Blood Type Antibody Screen 05/25/17 05/25/17 05/25/17 05:55 06:09 08:30 WBC RBC Hgb Hct MCV MCH MCHC RDW Plt Count MPV Neutrophils % Lymphocytes % Monocytes % Eosinophils % Basophils % PT with INR INR PTT (Actin FS) Anticoagulation Therapy No Result Required. Puncture Site Left radial ABG pH 7.31 L ABG pCO2 at Pt Temp 68.9 H* ABG pO2 at Pt Temp 71.0 D ABG HCO3 33.7 H ABG O2 Sat (Measured) 92.9 ABG O2 Content 14.6 L ABG Base Excess 6.0 H Edilberto Test Positive VBG pH POC VBG pCO2 POC VBG pO2 Mixed VBG HCO3 Carboxyhemoglobin 2.0 O2 Delivery Device No Result Required. Oxygen Flow Rate Yes Vent Mode No Result Required. Vent Rate No Result Required. Mechanical Rate No Result Required. PEEP Pressure Support Vent No Result Required. Sodium Potassium Chloride Carbon Dioxide Anion Gap BUN Creatinine Creat Clearance w eGFR Random Glucose Lactic Acid Calcium Phosphorus Magnesium Total Bilirubin AST ALT Alkaline Phosphatase Creatine Kinase Troponin I B-Natriuretic Peptide Cancelled Total Protein Albumin Blood Type O POSITIVE Antibody Screen Negative 05/25/17 14:41 WBC RBC Hgb Hct MCV MCH MCHC RDW Plt Count MPV Neutrophils % Lymphocytes % Monocytes % Eosinophils % Basophils % PT with INR INR PTT (Actin FS) Anticoagulation Therapy No Result Required. Puncture Site Left radial ABG pH 7.30 L ABG pCO2 at Pt Temp 58.3 H ABG pO2 at Pt Temp 97.9 D ABG HCO3 27.6 H ABG O2 Sat (Measured) 97.0 ABG O2 Content 14.8 L ABG Base Excess 0.8 Edilberto Test Positive VBG pH POC VBG pCO2 POC VBG pO2 Mixed VBG HCO3 Carboxyhemoglobin O2 Delivery Device Mech vent Oxygen Flow Rate 50 Vent Mode A/c Vent Rate 16 Mechanical Rate No Result Required. PEEP 5.0 Pressure Support Vent 400 Sodium Potassium Chloride Carbon Dioxide Anion Gap BUN Creatinine Creat Clearance w eGFR Random Glucose Lactic Acid Calcium Phosphorus Magnesium Total Bilirubin AST ALT Alkaline Phosphatase Creatine Kinase Troponin I B-Natriuretic Peptide Total Protein Albumin Blood Type Antibody Screen Active Medications Generic Name Dose Route Start Last Admin Trade Name Freq PRN Reason Stop Dose Admin Acetaminophen 325 mg 05/25/17 13:34 Tylenol Suppository - [place] Q4H PRN FEVER Chlorhexidine Gluconate 1 applic 05/25/17 22:00 Hibiclens For Decolonization - TP HS JEANNA Enoxaparin Sodium 40 mg 05/26/17 10:00 Lovenox - SQ DAILY JEANNA Midazolam HCl 100 mg/ Sodium 100 mls @ 2 mls/hr 05/25/17 12:00 05/25/17 14:35 Chloride IVPB 4 mg/hr TITR JEANNA 4 mls/hr Protocol Titration 2 MG/HR Sodium Chloride 1,000 mls @ 42 mls/hr 05/25/17 13:45 05/25/17 14:28 Normal Saline - IV 42 mls/hr ASDIR JEANNA Administration Latanoprost 1 drop 05/25/17 22:00 Xalatan 0.005% Eye Drops - OU HS JEANNA Methylprednisolone Sodium Succinate 40 mg 05/25/17 15:00 05/25/17 16:00 Solu-Medrol - IVPUSH 40 mg Q6H-IV JEANNA Administration Mupirocin 1 applic 05/25/17 22:00 Bactroban Ointment (For Decolonization) - NS 05/30/17 21:59 BID JEANNA Pantoprazole Sodium 40 mg 05/26/17 10:00 Protonix Iv IVPUSH DAILY [facility] ASSESSMENT/PLAN: Dispo: We will continue to follow the patient. Thank you for this consultative opportunity.
[2017-05-25 16:56] LABS: URINE APPEARANCE SLCLOUDY; URINE BILIRUBIN NEGATIVE (NEGATIVE); URINE BLOOD NEGATIVE (NEGATIVE); URINE COLOR LTYELLOW; URINE GLUCOSE (UA) 2+ (NEGATIVE); URINE KETONE NEGATIVE (NEGATIVE); URINE NITRITE NEGATIVE (NEGATIVE); URINE PROTEIN NEGATIVE (NEGATIVE); URINE UROBILINOGEN NEGATIVE mg/dL (0.2-1.0)
[2017-05-25 17:07] LABS: URINE LEUK ESTERASE 3+ (NEGATIVE)
[2017-05-25 17:16] LABS: EPI CELLS RARE /HPF (FEW); URINE BACTERIA MODERATE /hpf (NONE SEEN)
[2017-05-25] MEDS ORDERED: ACETAMINOPHEN 1000 MG/100 ML VIAL (NON FORMULARY) IVPB ONE (18:58)
[2017-05-25] MEDS ORDERED: ACETAMINOPHEN INJECTION 100 ML IVPB ONE (19:33)
[2017-05-25] MEDS ORDERED: LATANOPROST 0.005% OPHTH SOLN 2.5ML BOTTLE OU SCH (22:00)
--- NOTE | 2017-05-25 22:39 | CONSULT ---
Consult Consult Specialty:: Pulm/CCM Reason for Consultation:: Respiratory Failure - History of Present Illness History of Present Illness: 76 prakash with PMHx of COPD, CHF, recent hip Fx and replacement 04/18 c/b COPD exacerbation who brought in from the SNF with acute SOB x 2days. In the ED pt was tachypneic and wheezing and found to be in hypercarbic respiratory failure with PCO2 70's. She failed BiPAP trial and was intubated. In Ed VSS T 100.4, HR 142, BP 142/80, O2 sat 98%. Labs notable for WBC 10.3 with 97% neuts, lactate 1.9, Trop <0.02. CXR with no acute infiltrate or pleural effusions. CTA done re C/f PE d/t recent hip surgery was negative for for PE. She was transferred to ICU for further management. - History Source History Provided By: Medical Record - Past Medical History Cardio/Vascular: Yes: HTN Pulmonary: Yes: COPD, Other (oxygen at home) Gastrointestinal: Yes: Other (History of ulcer disease diagnosed 3 years ago when patient presented with anemia) Renal/: Yes: UTI Musculoskeletal: Yes: Osteoarthritis - Past Surgical History Past Surgical History: Yes: None - Alcohol/Substance Use Hx Alcohol Use: No History of Substance Use: reports: None - Smoking History Smoking history: Current every day smoker Have you smoked in the past 12 months: No Aproximately how many cigarettes per day: 0 If you are a former smoker, when did you quit?: Over 15 years ago - Social History ADL: Independent 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, , 2 children History of Recent Travel: No Home Medications - Allergies Allergies/Adverse Reactions: Allergies Allergy/AdvReac Type Severity Reaction Status Date / Time No Known Allergies Allergy Verified 05/25/17 05:33 - Home Medications Home Medications: Ambulatory Orders Fluticasone/Salmeterol [Advair 250-50 Diskus] 1 each IH BID 10/15/11 Tiotropium Alden [Spiriva] 18 mcg IH DAILY 10/15/11 Montelukast Na [Singulair -] 10 mg PO HS #0 tablet 10/20/11 Multivitamins [Multivit ([facility] Formulary)] 1 udtab PO DAILY #0 tab 10/20/11 Ferrous Sulfate [Feosol] 325 mg PO TID 01/18/12 Calcium Carbonate/Vitamin D3 [Calcium 600-Vit D3 200 Tablet] 1 each PO DAILY 10/13 Docosahexanoic Acid/Epa [Fish Oil Softgel] 1 each PO DAILY 11/05/12 Potassium Chloride [K-Dur] 20 meq PO DAILY #0 tab.er.prt 11/05/12 Alendronate Sodium [Fosamax] 35 mg PO KELLER 09/01/15 Atorvastatin Ca [Lipitor] 10 mg PO HS 09/01/15 Latanoprost 0.005% Eye Drops [Xalatan 0.005% Eye Drops -] 1 drop OU HS 09/01/15 Diltiazem Cd [Cardizem Cd -] 120 mg PO BID cap.cd.24h 05/07/17 Enoxaparin [Lovenox -] 40 mg SQ DAILY disp.syrin 05/07/17 Loratadine [Claritin -] 10 mg PO DAILY tablet 05/07/17 Mineral Oil/Petrolat,Wht/Water [Eucerin (Small Jar) -] 1 applic TP DAILY jar Polyethylene Glycol 3350 [Miralax 119 gm Btl -] 17 gm PO BID bottle 05/07/17 Prednisone [Deltasone -] 10 mg PO DAILY tablet 05/07/17 Torsemide [Demadex -] 60 mg PO DAILY tablet 05/07/17 Acetaminophen [Tylenol .Regular Strength -] 650 mg PO Q6H PRN 05/25/17 Albuterol 2.5/Ipratropium 0.5 [Duoneb -] 1 amp IH QSHIFT 05/25/17 Ascorbic Acid [Vitamin C -] 500 mg PO TID 05/25/17 Chlorpheniramine/Dextromethorp [Robitussin Long-Acting Liq] 15 ml PO Q6H Docusate Sodium [Colace -] 300 mg PO HS 05/25/17 Menthol/Zinc Oxide [Calmoseptine Ointment] 71 gm TP QSHIFT 05/25/17 Nystatin Oral Suspension - [Nystatin Oral Susp 822194 Units/5 ML -] 500,000 units PO QID 05/25/17 Omeprazole Magnesium [Prilosec Otc] 20 mg PO DAILY 05/25/17 Sodium Chloride Nasal Mercer [[place] Mercer Nasal Mercer] 2 spray NS QSHIFT Family Disease History - Family Disease History Family Disease History: Heart Disease: Father, Other: Mother (Alzheimers Dementia) Review of Systems Unable to obtain ROS, reason: Pt intubated Physical Exam Vital Signs: Vital Signs Temperature 105 F H 05/25/17 19:30 Pulse Rate 124 H 05/25/17 21:28 Respiratory Rate 16 05/25/17 22:29 Blood Pressure 89/60 05/25/17 21:28 O2 Sat by Pulse Oximetry (%) 99 05/25/17 21:28 Constitutional: Yes: Well Nourished, No Distress Eyes: Yes: PERRL HENT: Yes: Atraumatic, Normocephalic Neck: Yes: Supple, Trachea Midline Cardiovascular: Yes: Regular Rate and Rhythm, S1, S2 Respiratory: Yes: CTA Bilaterally, Intubated Gastrointestinal: Yes: Normal Bowel Sounds, Soft Renal/: Yes: [place] Present Extremities: Yes: WNL Edema: No Peripheral Pulses WNL: Yes Neurological: Yes: Other (Sedated RASS-4) Labs: CBC, BMP 05/25/17 05:55 05/25/17 05:55 CBC,CMP WBC 10.3 K/mm3 (4.0-10.0) H 05/25/17 05:55 RBC 4.26 M/mm3 (3.60-5.2) 05/25/17 05:55 Hgb 11.3 GM/dL (10.7-15.3) D 05/25/17 05:55 Hct 35.7 % (32.4-45.2) D 05/25/17 05:55 MCV 83.8 fl (80-96) 05/25/17 05:55 MCH 26.6 pg (25.7-33.7) 05/25/17 05:55 MCHC 31.7 g/dl (32.0-36.0) L 05/25/17 05:55 RDW 20.3 % (11.6-15.6) H D 05/25/17 05:55 Plt Count 209 K/MM3 (134-434) 05/25/17 05:55 MPV 8.6 fl (7.5-11.1) 05/25/17 05:55 Neutrophils % 97.7 % (42.8-82.8) H 05/25/17 05:55 Lymphocytes % 0.9 % (8-40) L 05/25/17 05:55 Monocytes % 0.7 % (3.8-10.2) L D 05/25/17 05:55 Eosinophils % 0.5 % (0-4.5) 05/25/17 05:55 Basophils % 0.2 % (0-2.0) 05/25/17 05:55 Sodium 138 mmol/L (136-145) 05/25/17 05:55 Potassium 3.6 mmol/L (3.5-5.1) 05/25/17 05:55 Chloride 94 mmol/L (98-107) L 05/25/17 05:55 Carbon Dioxide 37 mmol/L (21-32) H 05/25/17 05:55 Anion Gap 7 (8-16) L 05/25/17 05:55 BUN 13 mg/dL (7-18) 05/25/17 05:55 Creatinine 0.8 mg/dL (0.55-1.02) 05/25/17 05:55 Creat Clearance w eGFR > 60 (>60) 05/25/17 05:55 Random Glucose 144 mg/dL (74-106) H 05/25/17 05:55 Lactic Acid 1.9 mmol/L (0.0-2.0) 05/25/17 05:55 Calcium 8.1 mg/dL (8.5-10.1) L 05/25/17 05:55 Phosphorus 3.5 mg/dL (2.5-4.9) 05/25/17 05:55 Magnesium 1.8 mg/dL (1.8-2.4) 05/25/17 05:55 Total Bilirubin 0.4 mg/dL (0.2-1.0) D 05/25/17 05:55 AST 24 U/L (15-37) 05/25/17 05:55 ALT 52 U/L (12-78) 05/25/17 05:55 Alkaline Phosphatase 195 U/L (45-117) H 05/25/17 05:55 Creatine Kinase 24 IU/L (26-192) L 05/25/17 05:55 Troponin I < 0.02 ng/ml (0.00-0.05) 05/25/17 05:55 B-Natriuretic Peptide Cancelled 05/25/17 06:09 Total Protein 6.5 g/dl (6.4-8.2) 05/25/17 05:55 Albumin 3.1 g/dl (3.4-5.0) L 05/25/17 05:55 Current Medications Acetaminophen (Tylenol Suppository -) 325 mg MN Q4H PRN PRN Reason: FEVER Chlorhexidine Gluconate (Hibiclens For Decolonization -) 1 applic TP HS JEANNA Last Admin: 05/25/17 22:46 Dose: 1 applic Enoxaparin Sodium (Lovenox -) 40 mg SQ DAILY JEANNA Midazolam HCl 100 mg/ Sodium (Chloride) 100 mls @ 2 mls/hr IVPB TITR JEANNA; 2 MG/ HR PRN Reason: Protocol Last Titration: 05/25/17 19:30 Dose: 4 mg/hr, 4 mls/hr Sodium Chloride (Normal Saline -) 1,000 mls @ 42 mls/hr IV ASDIR JEANNA Last Admin: 05/25/17 14:28 Dose: 42 mls/hr Latanoprost (Xalatan 0.005% Eye Drops -) 1 drop OU HS JEANNA Methylprednisolone Sodium Succinate (Solu-Medrol -) 40 mg IVPUSH Q6H-IV JEANNA Last Admin: 05/25/17 20:56 Dose: 40 mg Mupirocin (Bactroban Ointment (For Decolonization) -) 1 applic NS BID JEANNA Stop: 05/30/17 21:59 Last Admin: 05/25/17 22:46 Dose: 1 applic Pantoprazole Sodium (Protonix Iv) 40 mg IVPUSH DAILY [facility] Vital Signs Period Temp Pulse Resp BP Sys/Ellis Pulse Ox Last 24 Hr 100.3 F-105 F 85-142 16-30 83-141/51-106 91-100 Imaging - Results Chest X-ray: Report Reviewed Cat Scan: Report Reviewed (CTA) Problem List - Problems (1) COPD exacerbation Code(s): J44.1 - CHRONIC OBSTRUCTIVE PULMONARY DISEASE W (ACUTE) EXACERBATION (2) Respiratory failure Code(s): J96.90 - RESPIRATORY FAILURE, UNSP, UNSP W HYPOXIA OR HYPERCAPNIA Qualifiers: Chronicity: acute Respiratory failure complication: hypoxia and hypercapnia Qualified Code(s): J96.01 - Acute respiratory failure with hypoxia ; J96.02 - Acute respiratory failure with hypercapnia; J96.02 - Acute respiratory failure with hypercapnia; J96.02 - Acute respiratory failure with hypercapnia (3) Sepsis Code(s): A41.9 - SEPSIS, UNSPECIFIED ORGANISM Qualifiers: Sepsis type: sepsis due to unspecified organism Qualified Code(s): A41.9 - Sepsis, unspecified organism (4) Acute and chronic respiratory failure with hypercapnia Code(s): J96.22 - ACUTE AND CHRONIC RESPIRATORY FAILURE WITH HYPERCAPNIA (5) Acute on chronic respiratory failure with hypoxemia Code(s): J96.21 - ACUTE AND CHRONIC RESPIRATORY FAILURE WITH HYPOXIA (6) CHF (congestive heart failure) Code(s): I50.9 - HEART FAILURE, UNSPECIFIED Qualifiers: Congestive heart failure type: diastolic Congestive heart failure chronicity: chronic Qualified Code(s): I50.32 - Chronic diastolic (congestive ) heart failure (7) Hypertension Code(s): I10 - ESSENTIAL (PRIMARY) HYPERTENSION (8) SOB (shortness of breath) Code(s): R06.02 - SHORTNESS OF BREATH Assessment/Plan 76 prakash with PMHx of COPD, CHF, recent hip Fx and replacement 04/18 c/b COPD exacerbation who brought in from the SNF with acute SOB x 2days. In the ED pt was tachypneic and wheezing. She was intubated for acute on chronic hypercapneic respiratory failure in the setting of COPD/CHF exacerbation in setting of possible HCAP. Plan: Resp/ID: Hypercapeic respiratory failure requiring intubation -Lung protective vent settings -Wean FiO2 for O2 sat >92% -Sedation for vent synchrony -Daily SBT -Diuresis for net neg -Cont nebs -Cont solumedrol 40mg qd -ABG and CXR -Cont Azithro, Zosyn and vanc for empiric HCAP coverage -F/u peng cultures -Pulm toilet -Aspiration precautions CV: CHF exacerbation -Cont antiHTN meds -Trend BNP -Diuresis -TTE Renal: -Monitor UOP and BMP -Replete electrolytes Proph: GI and DVT prophylaxis Jaqueline Jessica, ACNP CC time 35mins
[2017-05-25] MEDS: CHLORHEXIDINE GLUCONATE 4% CLEANSER FOR DECOLONIZATION TP SCH (22:46)
[2017-05-25] MEDS: MUPIROCIN 2% TOPICAL OINTMENT FOR DECOLONIZATION NS SCH (22:46)
[2017-05-25 23:17] VITALS: BMI 21.7
[2017-05-26] MEDS: methylPREDNISolone NA SUCC 40 MG/1 ML VIAL IVPUSH SCH ×4 (02:20→21:15)
[2017-05-26 07:31] LABS: CHLORIDE 108 mmol/L (98-107); POTASSIUM 3.6 mmol/L (3.5-5.1); SODIUM 145 mmol/L (136-145)
[2017-05-26 07:53] LABS: ALK PHOS 104 U/L (45-117); ANION GAP 9 (8-16); BILIRUBIN,TOTAL 0.4 mg/dL (0.2-1.0); BLOOD UREA NITROGEN 24 mg/dL (7-18); CO2 28 mmol/L (21-32); CREATININE 0.7 mg/dL (0.55-1.02); GLUCOSE,RANDOM 104 mg/dL (74-106); MAGNESIUM 1.9 mg/dL (1.8-2.4); PHOSPHOROUS 3.1 mg/dL (2.5-4.9); SGOT/AST 50 U/L (15-37); SGPT/ALT 77 U/L (12-78); TOT PROT 4.5 g/dl (6.4-8.2)
[2017-05-26 08:04] LABS: BASO % 0.1 % (0-2.0); HEMATOCRIT 30.3 % (32.4-45.2); HEMOGLOBIN 9.2 GM/dL (10.7-15.3); LYMPH % 0.7 % (8-40); MCH 25.5 pg (25.7-33.7); MCHC 30.5 g/dl (32.0-36.0); MEAN CELL VOLUME 83.7 fl (80-96); MONO % 3.6 % (3.8-10.2); NEUT % 95.6 % (42.8-82.8); PLATELET COUNT 130 K/MM3 (134-434); RBC 3.62 M/mm3 (3.60-5.2); WHITE BLOOD COUNT 15.3 K/mm3 (4.0-10.0)
[2017-05-26 08:05] LABS: CALCIUM 5.9 mg/dL (8.5-10.1)
--- NOTE | 2017-05-26 08:09 | EKG ---
Test Reason : Blood Pressure : / mmHG Vent. Rate : 138 BPM Atrial Rate : 138 BPM P-R Int : 142 ms QRS Dur : 070 ms QT Int : 278 ms P-R-T Axes : 063 011 057 degrees QTc Int : 421 ms SINUS TACHYCARDIA WITH OCCASIONAL PREMATURE VENTRICULAR COMPLEXES BIATRIAL ENLARGEMENT NONSPECIFIC ST AND T WAVE ABNORMALITY ABNORMAL ECG NO PREVIOUS ECGS AVAILABLE Confirmed by SONIA GARDINER MD ([id number]) on 05/26/2017 8:09:36 AM Referred By: Confirmed By:SONIA GARDINER MD
[2017-05-26] MEDS ORDERED: ACETAMINOPHEN 1000 MG/100 ML VIAL (NON FORMULARY) IVPB ONE (08:45)
[2017-05-26] MEDS: PANTOPRAZOLE SODIUM 40 MG VIAL IVPUSH SCH (09:05)
[2017-05-26] MEDS: ENOXAPARIN NA (PORCINE) 40 MG/0.4 ML DISP.SYRIN SQ SCH (09:06)
--- NOTE | 2017-05-26 10:56 | PN ---
Progress Note, Physician Chief Complaint: Unable to obtain, intubated and sedated - Current Medication List Current Medications: Active Medications Acetaminophen (Tylenol Suppository -) 325 mg [place] Q4H PRN PRN Reason: FEVER Calcium Gluconate (Calcium Gluconate 10% -) 1,000 mg IVPB ONCE ONE Stop: 05/26/17 11:01 Chlorhexidine Gluconate (Hibiclens For Decolonization -) 1 applic TP HS [facility] Last Admin: 05/25/17 22:46 Dose: 1 applic Enoxaparin Sodium (Lovenox -) 40 mg SQ DAILY [facility] Last Admin: 05/26/17 09:06 Dose: 40 mg Midazolam HCl 100 mg/ Sodium (Chloride) 100 mls @ 2 mls/hr IVPB TITR JEANNA; 2 MG/ HR PRN Reason: Protocol Last Titration: 05/26/17 02:24 Dose: 2 mg/hr, 2 mls/hr Sodium Chloride (Normal Saline -) 1,000 mls @ 42 mls/hr IV ASDIR [facility] Last Admin: 05/25/17 14:28 Dose: 42 mls/hr Piperacillin Sod/Tazobactam (Sod 3.375 gm/ Dextrose) 100 mls @ 200 mls/hr IVPB ONCE ONE Stop: 05/26/17 11:29 Vancomycin HCl 1,000 mg/ (Dextrose) 250 mls @ 250 mls/hr IVPB ONCE ONE Stop: 05/26/17 11:59 Latanoprost (Xalatan 0.005% Eye Drops -) 1 drop OU HS [facility] Methylprednisolone Sodium Succinate (Solu-Medrol -) 40 mg IVPUSH Q6H-IV [facility] Last Admin: 05/26/17 09:06 Dose: 40 mg Mupirocin (Bactroban Ointment (For Decolonization) -) 1 applic NS BID [facility] Stop: 05/30/17 21:59 Last Admin: 05/25/17 22:46 Dose: 1 applic Oseltamivir Phosphate (Tamiflu -) 75 mg PO BID [facility] Stop: 05/31/17 08:00 Pantoprazole Sodium (Protonix Iv) 40 mg IVPUSH DAILY [facility] Last Admin: 05/26/17 09:05 Dose: 40 mg - Objective Vital Signs: Vital Signs Temperature 38.4 C H 05/26/17 10:00 Pulse Rate 102 H 05/26/17 10:00 Respiratory Rate 14 01/24/18 10:00 Blood Pressure 92/61 05/26/17 10:00 O2 Sat by Pulse Oximetry (%) 100 05/26/17 08:35 Constitutional: Yes: No Distress, Calm, Other (sedated) Cardiovascular: Yes: Tachycardia. No: Pulse Irregular, Gallop, Murmur, Rub Respiratory: Yes: Regular, CTA Bilaterally, Intubated, Mechanically Ventilated. No: Rales, Rhonchi, Wheezes Gastrointestinal: Yes: Normal Bowel Sounds, Soft. No: Distention, Tenderness Extremities: Yes: WNL Edema: No Labs: CBC, BMP 05/26/17 06:35 05/26/17 06:35 INR, PTT INR 0.96 (0.82-1.09) 05/25/17 05:55 Problem List - Problems (1) Acute and chronic respiratory failure with hypercapnia Code(s): J96.22 - ACUTE AND CHRONIC RESPIRATORY FAILURE WITH HYPERCAPNIA (2) COPD exacerbation Code(s): J44.1 - CHRONIC OBSTRUCTIVE PULMONARY DISEASE W (ACUTE) EXACERBATION (3) CHF (congestive heart failure) Code(s): I50.9 - HEART FAILURE, UNSPECIFIED Qualifiers: Congestive heart failure type: diastolic Congestive heart failure chronicity: chronic Qualified Code(s): I50.32 - Chronic diastolic (congestive ) heart failure (4) Fracture, hip Code(s): S72.009A - FRACTURE OF UNSP PART OF NECK OF UNSP FEMUR, INIT Qualifiers: Encounter type: initial encounter Fracture type: closed Laterality: left Qualified Code(s): S72.002A - Fracture of unspecified part of neck of left femur, initial encounter for closed fracture (5) Hypertension Code(s): I10 - ESSENTIAL (PRIMARY) HYPERTENSION Assessment/Plan (1) Acute and chronic respiratory failure with hypercapnia Assessment/Plan: -patient appears septic -case d/w pulmonary and ID -continue vancomycin and zosyn for HCAP -tamiflu added for possible influenza -continue mechanical ventilation Code(s): J96.22 - ACUTE AND CHRONIC RESPIRATORY FAILURE WITH HYPERCAPNIA (2) COPD exacerbation Assessment/Plan: -causing hypercapneic respiratory failure -intubated -continue solumedrol - d/w pulmonary Code(s): J44.1 - CHRONIC OBSTRUCTIVE PULMONARY DISEASE W (ACUTE) EXACERBATION (3) CHF (congestive heart failure) Assessment/Plan: -will hold torsemide at this time -gentle hydration with close monitoring since intubated and npo Code(s): I50.9 - HEART FAILURE, UNSPECIFIED Qualifiers: Congestive heart failure type: diastolic Congestive heart failure chronicity: chronic Qualified Code(s): I50.32 - Chronic diastolic (congestive ) heart failure (4) Fracture, hip Assessment/Plan: -reason for being at SNF -continue lovenox for DVT PPx Code(s): S72.009A - FRACTURE OF UNSP PART OF NECK OF UNSP FEMUR, INIT Qualifiers: Encounter type: initial encounter Fracture type: closed Laterality: left Qualified Code(s): S72.002A - Fracture of unspecified part of neck of left femur, initial encounter for closed fracture (5) Hypertension Assessment/Plan: -low to normal blood pressure -hold antihypertensives -gentle hydration -monitor for improvement Code(s): I10 - ESSENTIAL (PRIMARY) HYPERTENSION (6) Hypocalcemia -corrected for albumin, calcium still low -calcium gluconate x1 -recheck in am Assessment/Plan 37 minutes spent in critical care time with this patient
[2017-05-26] MEDS ORDERED: CALCIUM GLUCONATE 10% - 1,000 MG/10 ML VIAL IVPB ONE (11:00)
[2017-05-26] MEDS ORDERED: PIPERACILLIN/TAZOB 3.375 GM 3.375 GM in DEXTROSE 5%-WATER - 100 ML IVPB ONE (11:00)
[2017-05-26] MEDS ORDERED: VANCOMYCIN 1,000 MG in DEXTROSE 5%-WATER - 250 ML IVPB ONE (11:00)
[2017-05-26] MEDS: MUPIROCIN 2% TOPICAL OINTMENT FOR DECOLONIZATION NS SCH ×2 (11:04→21:15)
[2017-05-26] MEDS: OSELTAMIVIR PHOSPHATE 75 MG CAPSULE PO SCH ×2 (13:12→21:15)
--- NOTE | 2017-05-26 13:36 | PN ---
Teaching Attending Note Name of Resident: Parmjit Gillis ATTENDING PHYSICIAN STATEMENT I saw and evaluated the patient. I reviewed the resident's note and discussed the case with the resident. I agree with the resident's findings and plan as documented. SUBJECTIVE: Pt seen and examined in the ICU. Remains intubated, sedated. Febrile overnight. Vented on volume assist control with 50% FiO2, PEEP 5. Not on pressors. OBJECTIVE: Last Vital Signs Temp Pulse Resp BP Pulse Ox 101.1 F H 102 H 16 92/61 100 05/26/17 10:00 05/26/17 10:00 05/26/17 11:27 05/26/17 10:00 05/26/17 08:35 Intake & Output 05/23/17 05/24/17 05/25/17 05/26/17 23:59 23:59 23:59 23:59 Intake Total 440 Output Total 400 600 Balance -400 -160 Weight 57.4 kg Gen: intubated, sedated Heart: tachycardic, regular Lung: distant breath sounds Abd: soft, nontender Ext: no edema CBC, BMP 05/26/17 06:35 05/26/17 06:35 Active Medications Acetaminophen (Tylenol Suppository -) 325 mg [place] Q4H PRN PRN Reason: FEVER Chlorhexidine Gluconate (Hibiclens For Decolonization -) 1 applic TP HS [facility] Last Admin: 05/25/17 22:46 Dose: 1 applic Enoxaparin Sodium (Lovenox -) 40 mg SQ DAILY [facility] Last Admin: 05/26/17 09:06 Dose: 40 mg Midazolam HCl 100 mg/ Sodium (Chloride) 100 mls @ 2 mls/hr IVPB TITR JEANNA; 2 MG/ HR PRN Reason: Protocol Last Titration: 05/26/17 02:24 Dose: 2 mg/hr, 2 mls/hr Sodium Chloride (Normal Saline -) 1,000 mls @ 42 mls/hr IV ASDIR [facility] Last Admin: 05/25/17 14:28 Dose: 42 mls/hr Latanoprost (Xalatan 0.005% Eye Drops -) 1 drop OU HS [facility] Methylprednisolone Sodium Succinate (Solu-Medrol -) 40 mg IVPUSH Q6H-IV [facility] Last Admin: 05/26/17 09:06 Dose: 40 mg Mupirocin (Bactroban Ointment (For Decolonization) -) 1 applic NS BID [facility] Stop: 05/30/17 21:59 Last Admin: 05/26/17 11:04 Dose: 1 applic Oseltamivir Phosphate (Tamiflu -) 75 mg PO BID [facility] Stop: 05/31/17 08:00 Last Admin: 05/26/17 13:12 Dose: 75 mg Pantoprazole Sodium (Protonix Iv) 40 mg IVPUSH DAILY [facility] Last Admin: 05/26/17 09:05 Dose: 40 mg ASSESSMENT AND PLAN: Acute Hypoxic and Hypercapneic Respiratory Failure Pneumonia r/o Influenza r/o UTI Acute COPD Exacerbation LV Diastolic Dysfunction Pulmonary HTN - continue antibiotics, tamiflu - f/u cultures - agree with medrol - inhaled bronchodilators standing and PRN - monitor ABG - lighten sedation to assess mental status - spontaneous breathing trials as tolerated when mental status improved - enteral feeds if unable to extubate - DVT/GI prophylaxis - continue ICU monitoring critical care time spent in reviewing chart, evaluating patient and formulating plan 35 min
--- NOTE | 2017-05-26 14:06 | PN ---
Physical Exam: SUBJECTIVE: Patient seen and examined in ICU Patient intubated/sedated. Vent settings: Rate 16/TV 450/FIO2-40/peep 5 OBJECTIVE: Vital Signs Period Temp Pulse Resp BP Sys/Ellis Pulse Ox Last 24 Hr 100 F-105 F 85-134 14-18 86-123/52-106 98-100 GENERAL: The patient is Intubated/sedated HEAD: Normal with no signs of trauma. LUNGS: Breath sounds equal, intubated HEART: Tachycardic, S1, S2 without murmur, rub or gallop. ABDOMEN: Soft, nontender, nondistended, normoactive bowel sounds, no guarding, no rebound, no hepatosplenomegaly, no masses. EXTREMITIES: 2+ pulses, warm, well-perfused, no edema. NEUROLOGICAL: Unable to assses 2/2 to intubation/sedation SKIN: Warm, dry, normal turgor, no rashes or lesions noted Laboratory Results - last 24 hr 05/25/17 05/25/17 05/25/17 05:55 05:55 08:30 WBC RBC Hgb Hct MCV MCH MCHC RDW Plt Count MPV Neutrophils % Lymphocytes % Monocytes % Eosinophils % Basophils % Anticoagulation Therapy Puncture Site ABG pH ABG pCO2 at Pt Temp ABG pO2 at Pt Temp ABG HCO3 ABG O2 Sat (Measured) ABG O2 Content ABG Base Excess Edilberto Test VBG pH 7.31 L POC VBG pCO2 72.4 H* POC VBG pO2 117.0 H Mixed VBG HCO3 35.6 H Methemoglobin 0.7 O2 Delivery Device Oxygen Flow Rate Vent Mode Vent Rate Mechanical Rate PEEP Pressure Support Vent Sodium Potassium Chloride Carbon Dioxide Anion Gap BUN Creatinine Creat Clearance w eGFR Random Glucose Lactic Acid 1.9 Calcium Phosphorus Magnesium Total Bilirubin AST ALT Alkaline Phosphatase Total Protein Albumin Urine Color Urine Appearance Urine pH Ur Specific [place] Urine Protein Urine Glucose (UA) Urine Ketones Urine Blood Urine Nitrite Urine Bilirubin Urine Urobilinogen Ur Leukocyte Esterase Urine WBC (Auto) Urine RBC (Auto) Ur Epithelial Cells Urine Bacteria 05/25/17 05/25/17 05/26/17 14:41 16:26 06:35 WBC 15.3 H D RBC 3.62 Hgb 9.2 L D Hct 30.3 L D MCV 83.7 MCH 25.5 L MCHC 30.5 L RDW 21.0 H Plt Count 130 L D MPV 9.0 Neutrophils % 95.6 H Lymphocytes % 0.7 L Monocytes % 3.6 L D Eosinophils % 0.0 D Basophils % 0.1 Anticoagulation Therapy No Result Required. Puncture Site Left radial ABG pH 7.30 L ABG pCO2 at Pt Temp 58.3 H ABG pO2 at Pt Temp 97.9 D ABG HCO3 27.6 H ABG O2 Sat (Measured) 97.0 ABG O2 Content 14.8 L ABG Base Excess 0.8 Edilberto Test Positive VBG pH POC VBG pCO2 POC VBG pO2 Mixed VBG HCO3 Methemoglobin O2 Delivery Device Mech vent Oxygen Flow Rate 50 Vent Mode A/c Vent Rate 16 Mechanical Rate No Result Required. PEEP 5.0 Pressure Support Vent 400 Sodium Potassium Chloride Carbon Dioxide Anion Gap BUN Creatinine Creat Clearance w eGFR Random Glucose Lactic Acid Calcium Phosphorus Magnesium Total Bilirubin AST ALT Alkaline Phosphatase Total Protein Albumin Urine Color Ltyellow Urine Appearance Slcloudy Urine pH 6.0 Ur Specific [place] 1.030 Urine Protein Negative Urine Glucose (UA) 2+ H Urine Ketones Negative Urine Blood Negative Urine Nitrite Negative Urine Bilirubin Negative Urine Urobilinogen Negative Ur Leukocyte Esterase 3+ H Urine WBC (Auto) 41 Urine RBC (Auto) 4 Ur Epithelial Cells Rare Urine Bacteria Moderate 05/26/17 06:35 WBC RBC Hgb Hct MCV MCH MCHC RDW Plt Count MPV Neutrophils % Lymphocytes % Monocytes % Eosinophils % Basophils % Anticoagulation Therapy Puncture Site ABG pH ABG pCO2 at Pt Temp ABG pO2 at Pt Temp ABG HCO3 ABG O2 Sat (Measured) ABG O2 Content ABG Base Excess Edilberto Test VBG pH POC VBG pCO2 POC VBG pO2 Mixed VBG HCO3 Methemoglobin O2 Delivery Device Oxygen Flow Rate Vent Mode Vent Rate Mechanical Rate PEEP Pressure Support Vent Sodium 145 Potassium 3.6 Chloride 108 H Carbon Dioxide 28 Anion Gap 9 BUN 24 H Creatinine 0.7 Creat Clearance w eGFR > 60 Random Glucose 104 Lactic Acid Calcium 5.9 L* Phosphorus 3.1 Magnesium 1.9 Total Bilirubin 0.4 AST 50 H ALT 77 Alkaline Phosphatase 104 Total Protein 4.5 L Albumin 2.0 L Urine Color Urine Appearance Urine pH Ur Specific [place] Urine Protein Urine Glucose (UA) Urine Ketones Urine Blood Urine Nitrite Urine Bilirubin Urine Urobilinogen Ur Leukocyte Esterase Urine WBC (Auto) Urine RBC (Auto) Ur Epithelial Cells Urine Bacteria Active Medications Generic Name Dose Route Start Last Admin Trade Name Freq PRN Reason Stop Dose Admin Acetaminophen 325 mg 05/25/17 13:34 Tylenol Suppository - [place] Q4H PRN FEVER Chlorhexidine Gluconate 1 applic 05/25/17 22:00 05/25/17 22:46 Hibiclens For Decolonization - TP 1 applic HS JEANNA Administration Enoxaparin Sodium 40 mg 05/26/17 10:00 05/26/17 09:06 Lovenox - SQ 40 mg DAILY JEANNA Administration Midazolam HCl 100 mg/ Sodium 100 mls @ 2 mls/hr 05/25/17 12:00 05/26/17 02:24 Chloride IVPB 2 mg/hr TITR JEANNA 2 mls/hr Protocol Titration 2 MG/HR Sodium Chloride 1,000 mls @ 42 mls/hr 05/25/17 13:45 05/25/17 14:28 Normal Saline - IV 42 mls/hr ASDIR [facility]ANNA Administration Latanoprost 1 drop 05/25/17 22:00 Xalatan 0.005% Eye Drops - OU HS [facility]NA Methylprednisolone Sodium Succinate 40 mg 05/25/17 15:00 05/26/17 09:06 Solu-Medrol - IVPUSH 40 mg Q6H-IV [facility]NA Administration Mupirocin 1 applic 05/25/17 22:00 05/26/17 11:04 Bactroban Ointment (For Decolonization) - NS 05/30/17 21:59 1 applic BID JEANNA Administration Oseltamivir Phosphate 75 mg 05/26/17 10:45 05/26/17 13:12 Tamiflu - PO 05/31/17 08:00 75 mg BID JEANNA Administration Pantoprazole Sodium 40 mg 05/26/17 10:00 05/26/17 09:05 Protonix Iv IVPUSH 40 mg DAILY [facility]ANNA Administration ASSESSMENT/PLAN: 76 year old F with pmh of COPD admitted for acute hypoxic respiratory failure now intubated/sedated. #Resp Acute Hypoxic and Hypercapneic Respiratory Failure -Continue versed -Solumederol 40 q6 -Assess mental status to see if patient can be extubated -Monitor blood gas #ID Pneumonia r/o Influenza UTI -Continue Tamiflu. -Previously given Vanco/Zosyn -Follow up cultures #FEN/GI -NS @ 42 cc/hr -wnl -Tube feeds, OG in place #PPx -Lovenox 40 sq daily -Protonix 40 IV daily for GI ppx #Dispo Continue ICU level of care Visit type - Emergency Visit Emergency Visit: Yes ED Registration Date: 05/25/17 Care time: The patient presented to the Emergency Department on the above date and was hospitalized for further evaluation of their emergent condition. - New Patient This patient is new to me today: No - Critical Care Critical Care patient: Yes Total Critical Care Time (in minutes): 40 Critical Care Statement: The care of this patient involved high complexity decision making to prevent further life threatening deterioration of the patient 's condition and/or to evaluate & treat vital organ system(s) failure or risk of failure.
--- NOTE | 2017-05-26 15:42 | CON.ID ---
Consult Consult Specialty:: infectious diseases Referred by:: Reason for Consultation:: pneumonia,resp failure uti,sepsis - History of Present Illness History of Present Illness: 76 year old female who presents from the SNF with acute SOB. Patient has just been extubated. Patient was intubated secondary to hypercapneic respiratory failure in the ER physician. Patient was recently discharged to SNF after hip replacement that was complicated by COPD exacerbation. patient came in with sob patient was worked up currently the patient has been spiking fevers and an infiltrate is seen in the xray patient feels better - History Source History Provided By: Patient, Medical Record Limitations to Obtaining History: Poor Historian - Past Medical History Cardio/Vascular: Yes: HTN Pulmonary: Yes: COPD, Other (oxygen at home) Gastrointestinal: Yes: Other (History of ulcer disease diagnosed 3 years ago when patient presented with anemia) Renal/: Yes: UTI Musculoskeletal: Yes: Osteoarthritis - Past Surgical History Past Surgical History: Yes: None - Alcohol/Substance Use Hx Alcohol Use: No History of Substance Use: reports: None - Smoking History Smoking history: Current every day smoker Have you smoked in the past 12 months: No Aproximately how many cigarettes per day: 0 If you are a former smoker, when did you quit?: Over 15 years ago - Social History ADL: Independent 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, , 2 children History of Recent Travel: No Home Medications - Allergies Allergies/Adverse Reactions: Allergies Allergy/AdvReac Type Severity Reaction Status Date / Time No Known Allergies Allergy Verified 05/25/17 05:33 - Home Medications Home Medications: Ambulatory Orders Fluticasone/Salmeterol [Advair 250-50 Diskus] 1 each IH BID 10/15/11 Tiotropium [place] [Spiriva] 18 mcg IH DAILY 10/15/11 Montelukast Na [Singulair -] 10 mg PO HS #0 tablet 10/20/11 Multivitamins [Multivit ([facility] Formulary)] 1 udtab PO DAILY #0 tab 10/20/11 Ferrous Sulfate [Feosol] 325 mg PO TID 01/18/12 Calcium Carbonate/Vitamin D3 [Calcium 600-Vit D3 200 Tablet] 1 each PO DAILY 10/13 Docosahexanoic Acid/Epa [Fish Oil Softgel] 1 each PO DAILY 11/05/12 Potassium Chloride [K-Dur] 20 meq PO DAILY #0 tab.er.prt 11/05/12 Alendronate Sodium [Fosamax] 35 mg PO KELLER 09/01/15 Atorvastatin Ca [Lipitor] 10 mg PO HS 09/01/15 Latanoprost 0.005% Eye Drops [Xalatan 0.005% Eye Drops -] 1 drop OU HS 09/01/15 Diltiazem Cd [Cardizem Cd -] 120 mg PO BID cap.cd.24h 05/07/17 Enoxaparin [Lovenox -] 40 mg SQ DAILY disp.syrin 05/07/17 Loratadine [Claritin -] 10 mg PO DAILY tablet 05/07/17 Mineral Oil/Petrolat,Wht/Water [Eucerin (Small Jar) -] 1 applic TP DAILY jar Polyethylene Glycol 3350 [Miralax 119 gm Btl -] 17 gm PO BID bottle 05/07/17 Prednisone [Deltasone -] 10 mg PO DAILY tablet 05/07/17 Torsemide [Demadex -] 60 mg PO DAILY tablet 05/07/17 Acetaminophen [Tylenol .Regular Strength -] 650 mg PO Q6H PRN 05/25/17 Albuterol 2.5/Ipratropium 0.5 [Duoneb -] 1 amp IH QSHIFT 05/25/17 Ascorbic Acid [Vitamin C -] 500 mg PO TID 05/25/17 Chlorpheniramine/Dextromethorp [Robitussin Long-Acting Liq] 15 ml PO Q6H Docusate Sodium [Colace -] 300 mg PO HS 05/25/17 Menthol/Zinc Oxide [Calmoseptine Ointment] 71 gm TP QSHIFT 05/25/17 Nystatin Oral Suspension - [Nystatin Oral Susp 737949 Units/5 ML -] 500,000 units PO QID 05/25/17 Omeprazole Magnesium [Prilosec Otc] 20 mg PO DAILY 05/25/17 Sodium Chloride Nasal [place] [[place] Swisher Nasal Swisher] 2 spray NS QSHIFT Family Disease History - Family Disease History Family Disease History: Heart Disease: Father, Other: Mother (Alzheimers Dementia) Review of Systems - Review of Systems Constitutional: reports: No Symptoms Eyes: reports: No Symptoms HENT: reports: No Symptoms Neck: reports: No Symptoms Cardiovascular: reports: No Symptoms Respiratory: reports: SOB, SOB on Exertion Gastrointestinal: reports: No Symptoms Genitourinary: reports: No Symptoms Musculoskeletal: reports: No Symptoms Integumentary: reports: No Symptoms Neurological: reports: No Symptoms Endocrine: reports: No Symptoms Hematology/Lymphatic: reports: No Symptoms Psychiatric: reports: No Symptoms Physical Exam Vital Signs: Vital Signs Temperature 101.1 F H 05/26/17 10:00 Pulse Rate 102 H 05/26/17 10:00 Respiratory Rate 16 05/26/17 14:51 Blood Pressure 92/61 05/26/17 10:00 O2 Sat by Pulse Oximetry (%) 99 05/26/17 15:00 Constitutional: Yes: No Distress, Calm Eyes: Yes: Conjunctiva Clear Neck: Yes: Supple, Trachea Midline Cardiovascular: Yes: Regular Rate and Rhythm. No: Pulse Irregular Respiratory: Yes: Regular, Poor Air Entry (rt side) Gastrointestinal: Yes: Normal Bowel Sounds, Soft Musculoskeletal: Yes: WNL Extremities: Yes: WNL Neurological: Yes: Alert, Oriented Psychiatric: Yes: Alert, Oriented Labs: CBC, BMP 05/26/17 06:35 05/26/17 06:35 Imaging - Results Chest X-ray: Report Reviewed, Image Reviewed Cat Scan: Report Reviewed, Image Reviewed Assessment/Plan Problem List - Problems (1) Acute and chronic respiratory failure with hypercapnia Code(s): J96.22 - ACUTE AND CHRONIC RESPIRATORY FAILURE WITH HYPERCAPNIA (2) COPD exacerbation Code(s): J44.1 - CHRONIC OBSTRUCTIVE PULMONARY DISEASE W (ACUTE) EXACERBATION (3) CHF (congestive heart failure) Code(s): I50.9 - HEART FAILURE, UNSPECIFIED Qualifiers: Congestive heart failure type: diastolic Congestive heart failure chronicity: chronic Qualified Code(s): I50.32 - Chronic diastolic (congestive ) heart failure (4) Fracture, hip Code(s): S72.009A - FRACTURE OF UNSP PART OF NECK OF UNSP FEMUR, INIT Qualifiers: Encounter type: initial encounter Fracture type: closed Laterality: left Qualified Code(s): S72.002A - Fracture of unspecified part of neck of left femur, initial encounter for closed fracture (5) Hypertension Code(s): I10 - ESSENTIAL (PRIMARY) HYPERTENSION 6 pneumonia 7 leukocytosis plan patient receive abx plan will contiue zosyn monitor for fevers if fevers reculture await for all reports incentive renee will stop tamiflu rest as per icu and primary cc time 45 min
[2017-05-26] MEDS: PIPERACILLIN/TAZOB 3.375 GM 3.375 GM in DEXTROSE 5%-WATER - 100 ML IVPB SCH (17:18)
[2017-05-26] MEDS ORDERED: PIPERACILLIN/TAZOB 3.375 GM 50 ML IVPB SCH (18:00)
[2017-05-26] MEDS: CHLORHEXIDINE GLUCONATE 4% CLEANSER FOR DECOLONIZATION TP SCH (21:15)
[2017-05-26] MEDS ORDERED: ALBUTEROL SO4 0.083% IH SOL 2.5 MG/3 ML VIAL.NEB. NEB PRN (21:33)
[2017-05-27] MEDS: PIPERACILLIN/TAZOB 3.375 GM 3.375 GM in DEXTROSE 5%-WATER - 100 ML IVPB SCH ×3 (01:36→17:04)
[2017-05-27] MEDS: methylPREDNISolone NA SUCC 40 MG/1 ML VIAL IVPUSH SCH ×4 (02:02→22:26)
[2017-05-27 07:18] LABS: CHLORIDE 108 mmol/L (98-107); POTASSIUM 3.9 mmol/L (3.5-5.1); SODIUM 146 mmol/L (136-145)
[2017-05-27 07:25] LABS: ANION GAP 7 (8-16); BLOOD UREA NITROGEN 18 mg/dL (7-18); CO2 31 mmol/L (21-32); CREATININE 0.4 mg/dL (0.55-1.02); GLUCOSE,RANDOM 104 mg/dL (74-106); MAGNESIUM 2.5 mg/dL (1.8-2.4); PHOSPHOROUS 2.6 mg/dL (2.5-4.9)
[2017-05-27 07:38] LABS: HEMATOCRIT 34.5 % (32.4-45.2); HEMOGLOBIN 10.5 GM/dL (10.7-15.3); MCH 25.8 pg (25.7-33.7); MCHC 30.3 g/dl (32.0-36.0); MEAN CELL VOLUME 85.1 fl (80-96); MEAN PLT VOLUME 9.3 fl (7.5-11.1); PLATELET COUNT 139 K/MM3 (134-434); RBC 4.05 M/mm3 (3.60-5.2); RDW 20.9 % (11.6-15.6); WHITE BLOOD COUNT 20.1 K/mm3 (4.0-10.0)
[2017-05-27 08:12] LABS: ADD RBC MORPHOLOGY YES
[2017-05-27] MEDS ORDERED: PT OWN MED DRAWER 7, Y5N ONE (08:29)
[2017-05-27 08:39] LABS: CALCIUM 6.8 mg/dL (8.5-10.1)
[2017-05-27] MEDS: MUPIROCIN 2% TOPICAL OINTMENT FOR DECOLONIZATION NS SCH (09:00)
[2017-05-27] MEDS: ENOXAPARIN NA (PORCINE) 40 MG/0.4 ML DISP.SYRIN SQ SCH (09:00)
[2017-05-27] MEDS: PANTOPRAZOLE SODIUM 40 MG VIAL IVPUSH SCH (09:01)
--- NOTE | 2017-05-27 10:23 | PN ---
Progress Note, Physician Chief Complaint: Mrs Hadley says she is feeling much better today. No cp or n/v. Still with some shortness of breath but improved. - Current Medication List Current Medications: Active Medications Acetaminophen (Tylenol Suppository -) 325 mg MD Q4H PRN PRN Reason: FEVER Albuterol Sulfate (Ventolin 0.083% Nebulizer Soln -) 1 amp NEB Q4H PRN PRN Reason: SHORT OF BREATH/WHEEZING Chlorhexidine Gluconate (Hibiclens For Decolonization -) 1 applic TP HS [facility] Last Admin: 05/26/17 21:15 Dose: 1 applic Enoxaparin Sodium (Lovenox -) 40 mg SQ DAILY [facility] Last Admin: 05/27/17 09:00 Dose: 40 mg Piperacillin Sod/Tazobactam (Sod 3.375 gm/ Dextrose) 100 mls @ 200 mls/hr IVPB Q8H-IV [facility] Last Admin: 05/27/17 09:31 Dose: 200 mls/hr Latanoprost (Xalatan 0.005% Eye Drops -) 1 drop OU HS [facility] Last Admin: 05/26/17 21:45 Dose: 1 drop Methylprednisolone Sodium Succinate (Solu-Medrol -) 40 mg IVPUSH Q6H-IV [facility] Last Admin: 05/27/17 08:55 Dose: 40 mg Mupirocin (Bactroban Ointment (For Decolonization) -) 1 applic NS BID [facility] Stop: 05/30/17 21:59 Last Admin: 05/27/17 09:00 Dose: 1 applic Pantoprazole Sodium (Protonix Iv) 40 mg IVPUSH DAILY [facility] Last Admin: 05/27/17 09:01 Dose: 40 mg - Objective Vital Signs: Vital Signs Temperature 36.8 C 05/27/17 06:00 Pulse Rate 116 H 05/27/17 08:00 Respiratory Rate 20 05/27/17 08:00 Blood Pressure 118/74 05/27/17 08:00 O2 Sat by Pulse Oximetry (%) 96 05/27/17 08:05 Constitutional: Yes: Well Nourished, No Distress, Calm Cardiovascular: Yes: Regular Rate and Rhythm. No: Gallop, Murmur, Rub Respiratory: Yes: Regular, On Nasal O2, Rhonchi. No: CTA Bilaterally, Rales, Tachypnea, Wheezes Gastrointestinal: Yes: Normal Bowel Sounds, Soft. No: Distention, Tenderness Extremities: Yes: WNL Edema: No Labs: CBC, BMP 05/27/17 05:27 05/27/17 05:27 INR, PTT INR 0.96 (0.82-1.09) 05/25/17 05:55 Problem List - Problems (1) RSV (respiratory syncytial virus pneumonia) Code(s): J12.1 - RESPIRATORY SYNCYTIAL VIRUS PNEUMONIA (2) Acute and chronic respiratory failure with hypercapnia Code(s): J96.22 - ACUTE AND CHRONIC RESPIRATORY FAILURE WITH HYPERCAPNIA (3) COPD exacerbation Code(s): J44.1 - CHRONIC OBSTRUCTIVE PULMONARY DISEASE W (ACUTE) EXACERBATION (4) CHF (congestive heart failure) Code(s): I50.9 - HEART FAILURE, UNSPECIFIED Qualifiers: Congestive heart failure type: diastolic Congestive heart failure chronicity: chronic Qualified Code(s): I50.32 - Chronic diastolic (congestive ) heart failure (5) Fracture, hip Code(s): S72.009A - FRACTURE OF UNSP PART OF NECK OF UNSP FEMUR, INIT Qualifiers: Encounter type: initial encounter Fracture type: closed Laterality: left Qualified Code(s): S72.002A - Fracture of unspecified part of neck of left femur, initial encounter for closed fracture (6) Hypertension Code(s): I10 - ESSENTIAL (PRIMARY) HYPERTENSION Assessment/Plan (1) Acute and chronic respiratory failure with hypercapnia Assessment/Plan: -patient with RSV pneumonia -much improved, extubated -Dr Amberly rivera, currently on zosyn -may be able to de-escalate antibiotics soon -continue current management Code(s): J96.22 - ACUTE AND CHRONIC RESPIRATORY FAILURE WITH HYPERCAPNIA (2) COPD exacerbation Assessment/Plan: -now extubated -case d/w pulmonary -continue solumedrol 40mg IV q6h -de-escalate when improving -placed on albuterol, restart spiriva -will hold on inhaled corticosteroids at this time Code(s): J44.1 - CHRONIC OBSTRUCTIVE PULMONARY DISEASE W (ACUTE) EXACERBATION (3) CHF (congestive heart failure) Assessment/Plan: -will hold torsemide at this time -plan to restart tomorrow Code(s): I50.9 - HEART FAILURE, UNSPECIFIED Qualifiers: Congestive heart failure type: diastolic Congestive heart failure chronicity: chronic Qualified Code(s): I50.32 - Chronic diastolic (congestive ) heart failure (4) Fracture, hip Assessment/Plan: -reason for being at SNF -continue lovenox for DVT PPx Code(s): S72.009A - FRACTURE OF UNSP PART OF NECK OF UNSP FEMUR, INIT Qualifiers: Encounter type: initial encounter Fracture type: closed Laterality: left Qualified Code(s): S72.002A - Fracture of unspecified part of neck of left femur, initial encounter for closed fracture (5) Hypertension Assessment/Plan: -much improved -restart diltiazem and monitor Code(s): I10 - ESSENTIAL (PRIMARY) HYPERTENSION (6) Hypocalcemia -improved after replacement Dispo -ok to transfer to floor
[2017-05-27 11:41] LABS: ANISOCYTOSIS 2+; MACROCYTOSIS 0; PLATELET ESTIMATE DECREASED
--- NOTE | 2017-05-27 12:16 | PN ---
Teaching Attending Note Name of Resident: Parmjit Gillis ATTENDING PHYSICIAN STATEMENT I saw and evaluated the patient. I reviewed the resident's note and discussed the case with the resident. I agree with the resident's findings and plan as documented. SUBJECTIVE: Patient seen and examined in the ICU. Remains extubated. Awake and alert on VM O2. Mildly tachypneic at rest. Not on pressors. CXR: increasing infiltrate/effusion/atelectasis RLL OBJECTIVE: Intake & Output 05/24/17 05/25/17 05/26/17 05/27/17 23:59 23:59 23:59 23:59 Intake Total 1522 200 Output Total 400 1900 550 Balance -400 -378 -350 Weight 126 lb 8.725 oz 127 lb 3.2 oz Last Vital Signs Temp Pulse Resp BP Pulse Ox 98.3 F 116 H 20 118/74 96 05/27/17 10:00 05/27/17 08:00 05/27/17 08:00 05/27/17 08:00 05/27/17 08:05 Active Medications Acetaminophen (Tylenol Suppository -) 325 mg ID Q4H PRN PRN Reason: FEVER Albuterol Sulfate (Ventolin 0.083% Nebulizer Soln -) 1 amp NEB Q4H PRN PRN Reason: SHORT OF BREATH/WHEEZING Chlorhexidine Gluconate (Hibiclens For Decolonization -) 1 applic TP HS [facility] Last Admin: 05/26/17 21:15 Dose: 1 applic Enoxaparin Sodium (Lovenox -) 40 mg SQ DAILY [facility] Last Admin: 05/27/17 09:00 Dose: 40 mg Piperacillin Sod/Tazobactam (Sod 3.375 gm/ Dextrose) 100 mls @ 200 mls/hr IVPB Q8H-IV [facility] Last Admin: 05/27/17 09:31 Dose: 200 mls/hr Latanoprost (Xalatan 0.005% Eye Drops -) 1 drop OU HS [facility] Last Admin: 05/26/17 21:45 Dose: 1 drop Methylprednisolone Sodium Succinate (Solu-Medrol -) 40 mg IVPUSH Q6H-IV [facility] Last Admin: 05/27/17 08:55 Dose: 40 mg Mupirocin (Bactroban Ointment (For Decolonization) -) 1 applic NS BID [facility] Stop: 05/30/17 21:59 Last Admin: 05/27/17 09:00 Dose: 1 applic Pantoprazole Sodium (Protonix Iv) 40 mg IVPUSH DAILY [facility] Last Admin: 05/27/17 09:01 Dose: 40 mg Gen: Extubated, awake and alert Heart: tachycardic, regular Lung: distant breath sounds, RLL rhonchi/crackles Abd: soft, nontender Ext: no edema Laboratory Results - last 24 hr 05/27/17 05/27/17 05/27/17 05:27 05:27 06:05 WBC 20.1 H D RBC 4.05 Hgb 10.5 L D Hct 34.5 MCV 85.1 MCH 25.8 MCHC 30.3 L RDW 20.9 H Plt Count 139 MPV 9.3 Neutrophils % No Result Required. Lymphocytes % No Result Required. Anticoagulation Therapy Cancelled Puncture Site Cancelled Patient Temperature Cancelled ABG pH Cancelled ABG pCO2 at Pt Temp Cancelled ABG pO2 at Pt Temp Cancelled ABG HCO3 Cancelled ABG O2 Sat (Measured) Cancelled ABG O2 Content Cancelled ABG Base Excess Cancelled Edilberto Test Cancelled O2 Delivery Device Cancelled Oxygen Flow Rate Cancelled Vent Mode Cancelled Vent Rate Cancelled Mechanical Rate Cancelled PEEP Cancelled Pressure Support Vent Cancelled Sodium 146 H Potassium 3.9 Chloride 108 H Carbon Dioxide 31 Anion Gap 7 L BUN 18 Creatinine 0.4 L Random Glucose 104 Calcium 6.8 L* Phosphorus 2.6 Magnesium 2.5 H ASSESSMENT AND PLAN: Acute Hypoxic and Hypercapneic Respiratory Failure Pneumonia r/o Influenza r/o UTI Acute COPD Exacerbation LV Diastolic Dysfunction Pulmonary HTN - continue antibiotics, tamiflu - Can taper Medrol starting tomorrow - inhaled bronchodilators standing and PRN - Incentive Spirometry - PO as tolerated - DVT/GI prophylaxis - 4W/4S monitoring Dr Carranza Critical care time spent in reviewing chart, evaluating patient and formulating plan 35 min
[2017-05-27] MEDS ORDERED: ACETAMINOPHEN 325 MG SUPP.RECT PR PRN (12:22)
--- NOTE | 2017-05-27 14:09 | PN ---
Physical Exam: SUBJECTIVE: Patient seen and examined No acute events overnight. Patient comfortable and satting well on ventimask. OBJECTIVE: Vital Signs Period Temp Pulse Resp BP Sys/Ellis Pulse Ox Last 24 Hr 98.2 F-99.2 F 108-118 15-23 104-127/66-96 96-100 GENERAL: The patient is awake alert and oriented x3. No acute distress HEAD: Normal with no signs of trauma. LUNGS: Breath sounds equal, decreased breath sounds, clear to auscultation bilaterally HEART: Tachycardic, S1, S2 without murmur, rub or gallop. ABDOMEN: Soft, nontender, nondistended, normoactive bowel sounds, no guarding, no rebound, no hepatosplenomegaly, no masses. EXTREMITIES: 2+ pulses, warm, well-perfused, no edema. NEUROLOGICAL: No focal deficits, patient is awake alert, and oriented x3 SKIN: Warm, dry, normal turgor, no rashes or lesions noted Laboratory Results - last 24 hr 05/27/17 05/27/17 05/27/17 05:27 05:27 06:05 WBC 20.1 H D RBC 4.05 Hgb 10.5 L D Hct 34.5 MCV 85.1 MCH 25.8 MCHC 30.3 L RDW 20.9 H Plt Count 139 MPV 9.3 Neutrophils % No Result Required. Neutrophils % (Manual) 68.7 D Band Neutrophils % 28.3 Lymphocytes % No Result Required. Lymphocytes % (Manual) 1.0 L D Monocytes % (Manual) 2 L Eosinophils % (Manual) 0.0 Basophils % (Manual) 0.0 Myelocytes % (Man) 0 Promyelocytes % (Man) 0 Metamyelocytes 0 Hypochromia 0 Platelet Estimate Decreased Polychromasia 1+ Poikilocytosis 0 Anisocytosis 2+ Microcytosis 0 Macrocytosis 0 Anticoagulation Therapy Cancelled Puncture Site Cancelled Patient Temperature Cancelled ABG pH Cancelled ABG pCO2 at Pt Temp Cancelled ABG pO2 at Pt Temp Cancelled ABG HCO3 Cancelled ABG O2 Sat (Measured) Cancelled ABG O2 Content Cancelled ABG Base Excess Cancelled Edilberto Test Cancelled O2 Delivery Device Cancelled Oxygen Flow Rate Cancelled Vent Mode Cancelled Vent Rate Cancelled Mechanical Rate Cancelled PEEP Cancelled Pressure Support Vent Cancelled Sodium 146 H Potassium 3.9 Chloride 108 H Carbon Dioxide 31 Anion Gap 7 L BUN 18 Creatinine 0.4 L Random Glucose 104 Calcium 6.8 L* Phosphorus 2.6 Magnesium 2.5 H Active Medications Generic Name Dose Route Start Last Admin Trade Name Freq PRN Reason Stop Dose Admin Acetaminophen 325 mg 05/27/17 12:22 Tylenol Suppository - IA Q4H PRN FEVER Albuterol Sulfate 1 amp 05/27/17 12:22 Ventolin 0.083% Nebulizer Soln - NEB Q4H PRN SHORT OF BREATH/WHEEZING Enoxaparin Sodium 40 mg 05/28/17 10:00 Lovenox - SQ DAILY [facility] Piperacillin Sod/Tazobactam 100 mls @ 200 mls/hr 05/27/17 18:00 Sod 3.375 gm/ Dextrose IVPB Q8H-IV [facility] Latanoprost 1 drop 05/27/17 22:00 Xalatan 0.005% Eye Drops - OU HS [facility] Methylprednisolone Sodium Succinate 40 mg 05/27/17 15:00 Solu-Medrol - IVPUSH Q6H-IV [facility] Pantoprazole Sodium 40 mg 05/28/17 10:00 Protonix Iv IVPUSH DAILY [facility] ASSESSMENT/PLAN: 76 year old F with pmh of COPD admitted for acute hypoxic respiratory failure now intubated/sedated. #Resp Acute Hypoxic and Hypercapneic Respiratory Failure -Solumederol 40 q12, slowly taper -Patient now extubated, satting well on venti mask -Monitor blood gas #ID Pneumonia r/o Influenza RSV + UTI -continue zosyn -F/u recs from ID, Dr. Gaming -Follow up cultures, RSV+ #FEN/GI -No IVF -wnl -Sodium controlled diet #PPx -Lovenox 40 sq daily -Protonix 40 IV daily for GI ppx #Dispo Transfer to telemetry Visit type - Emergency Visit Emergency Visit: Yes ED Registration Date: 05/25/17 Care time: The patient presented to the Emergency Department on the above date and was hospitalized for further evaluation of their emergent condition. - New Patient This patient is new to me today: No - Critical Care Critical Care patient: Yes Total Critical Care Time (in minutes): 45 Critical Care Statement: The care of this patient involved high complexity decision making to prevent further life threatening deterioration of the patient 's condition and/or to evaluate & treat vital organ system(s) failure or risk of failure.
--- NOTE | 2017-05-27 16:33 | PN ---
Progress Note, Physician History of Present Illness: patient looking much better no complaints stable breathing much better - Current Medication List Current Medications: Active Medications Acetaminophen (Tylenol Suppository -) 325 mg NE Q4H PRN PRN Reason: FEVER Albuterol Sulfate (Ventolin 0.083% Nebulizer Soln -) 1 amp NEB Q4H PRN PRN Reason: SHORT OF BREATH/WHEEZING Atorvastatin Calcium (Lipitor -) 10 mg PO HS [facility] Diltiazem HCl (Cardizem Cd -) 120 mg PO BID [facility] Enoxaparin Sodium (Lovenox -) 40 mg SQ DAILY [facility] Ferrous Sulfate (Feosol -) 325 mg PO TID [facility] Piperacillin Sod/Tazobactam (Sod 3.375 gm/ Dextrose) 100 mls @ 200 mls/hr IVPB Q8H-IV [facility] Latanoprost (Xalatan 0.005% Eye Drops -) 1 drop OU HS [facility] Loratadine (Claritin -) 10 mg PO DAILY [facility] Methylprednisolone Sodium Succinate (Solu-Medrol -) 40 mg IVPUSH Q6H-IV [facility] Last Admin: 05/27/17 14:49 Dose: 40 mg Montelukast Sodium (Singulair -) 10 mg PO HS [facility] Multivitamins/Minerals/Vitamin C (Tab-A-Vit -) 1 tab PO DAILY [facility] Pantoprazole Sodium (Protonix Iv) 40 mg IVPUSH DAILY [facility] Tiotropium [place] (Spiriva -) puff IH DAILY [facility] - Objective Vital Signs: Vital Signs Temperature 99.8 F H 05/27/17 14:00 Pulse Rate 110 H 05/27/17 16:00 Respiratory Rate 24 05/27/17 16:00 Blood Pressure 124/78 05/27/17 16:00 O2 Sat by Pulse Oximetry (%) 96 05/27/17 08:05 Constitutional: Yes: No Distress, Calm Cardiovascular: Yes: Regular Rate and Rhythm Respiratory: Yes: Regular, Poor Air Entry Gastrointestinal: Yes: Normal Bowel Sounds, Soft Musculoskeletal: Yes: WNL Extremities: Yes: WNL Neurological: Yes: Alert, Oriented Psychiatric: Yes: Alert, Oriented Labs: CBC, BMP 05/27/17 05:27 05/27/17 05:27 INR, PTT INR 0.96 (0.82-1.09) 05/25/17 05:55 Assessment/Plan Problem List - Problems (1) Acute and chronic respiratory failure with hypercapnia Code(s): J96.22 - ACUTE AND CHRONIC RESPIRATORY FAILURE WITH HYPERCAPNIA (2) COPD exacerbation Code(s): J44.1 - CHRONIC OBSTRUCTIVE PULMONARY DISEASE W (ACUTE) EXACERBATION (3) CHF (congestive heart failure) Code(s): I50.9 - HEART FAILURE, UNSPECIFIED Qualifiers: Congestive heart failure type: diastolic Congestive heart failure chronicity: chronic Qualified Code(s): I50.32 - Chronic diastolic (congestive ) heart failure (4) Fracture, hip Code(s): S72.009A - FRACTURE OF UNSP PART OF NECK OF UNSP FEMUR, INIT Qualifiers: Encounter type: initial encounter Fracture type: closed Laterality: left Qualified Code(s): S72.002A - Fracture of unspecified part of neck of left femur, initial encounter for closed fracture (5) Hypertension Code(s): I10 - ESSENTIAL (PRIMARY) HYPERTENSION 6 pneumonia 7 leukocytosis plan patient receive abx plan continue zosyn continue monitoring patient looking stable no complaints wound care rest as per icu and primary cc time 40 min
[2017-05-27] MEDS: ALBUTEROL SO4 0.083% IH SOL 2.5 MG/3 ML VIAL.NEB. NEB PRN (18:26)
[2017-05-27] MEDS: MONTELUKAST NA 10 MG TABLET PO SCH (22:27)
[2017-05-27] MEDS: FERROUS SO4 325 MG TABLET (FP) PO SCH (22:27)
[2017-05-27] MEDS: ATORVASTATIN CA 10 MG TABLET (FP) PO SCH (22:27)
[2017-05-27] MEDS: LATANOPROST 0.005% OPHTH SOLN 2.5ML BOTTLE OU SCH (22:31)
[2017-05-28] MEDS: PIPERACILLIN/TAZOB 3.375 GM 3.375 GM in DEXTROSE 5%-WATER - 100 ML IVPB SCH ×3 (01:46→17:47)
[2017-05-28] MEDS: methylPREDNISolone NA SUCC 40 MG/1 ML VIAL IVPUSH SCH ×5 (01:48→21:26)
[2017-05-28] MEDS ORDERED: PT OWN MED DRAWER 7, Y5N ONE (01:53)
[2017-05-28] MEDS: FERROUS SO4 325 MG TABLET (FP) PO SCH ×3 (06:30→21:26)
[2017-05-28 07:28] LABS: ANION GAP 6 (8-16); BLOOD UREA NITROGEN 16 mg/dL (7-18); CALCIUM 7.4 mg/dL (8.5-10.1); CHLORIDE 108 mmol/L (98-107); CO2 34 mmol/L (21-32); CREATININE 0.4 mg/dL (0.55-1.02); GLUCOSE,RANDOM 131 mg/dL (74-106); MAGNESIUM 2.8 mg/dL (1.8-2.4); PHOSPHOROUS 2.3 mg/dL (2.5-4.9); POTASSIUM 4.4 mmol/L (3.5-5.1); SODIUM 148 mmol/L (136-145)
[2017-05-28 08:04] LABS: BASO % 0.1 % (0-2.0); HEMATOCRIT 36.2 % (32.4-45.2); HEMOGLOBIN 10.7 GM/dL (10.7-15.3); LYMPH % 1.4 % (8-40); MCH 25.7 pg (25.7-33.7); MCHC 29.6 g/dl (32.0-36.0); MEAN CELL VOLUME 86.8 fl (80-96); MEAN PLT VOLUME 9.5 fl (7.5-11.1); MONO % 1.8 % (3.8-10.2); NEUT % 96.7 % (42.8-82.8); PLATELET COUNT 140 K/MM3 (134-434); RBC 4.17 M/mm3 (3.60-5.2); RDW 20.9 % (11.6-15.6); WHITE BLOOD COUNT 19.1 K/mm3 (4.0-10.0)
[2017-05-28] MEDS: ALBUTEROL SO4 0.083% IH SOL 2.5 MG/3 ML VIAL.NEB. NEB PRN (08:07)
[2017-05-28] MEDS: PANTOPRAZOLE SODIUM 40 MG VIAL IVPUSH SCH (09:30)
[2017-05-28] MEDS: ENOXAPARIN NA (PORCINE) 40 MG/0.4 ML DISP.SYRIN SQ SCH (09:30)
[2017-05-28] MEDS: MULTIVITAMINS (DAILY MVI) TABLET (FP) PO SCH (09:30)
[2017-05-28] MEDS: LORATADINE 10 MG TABLET PO SCH (09:30)
[2017-05-28] MEDS: TIOTROPIUM BROMIDE 18 MCG/INH (DEVICE W/ 5 CAPSULES) IH SCH (09:30)
[2017-05-28 09:58] LABS: ARTERIAL BLD GAS O2 SATURATION 99.4 % (90-98.9); ARTERIAL BLOOD GAS BASE EXCESS -2.6 meq/l (-2-2)
[2017-05-28 09:59] LABS: ALLENS TEST POSITIVE
[2017-05-28 10:01] LABS: ARTERIAL BLOOD GAS pH 7.16 (7.35-7.45)
[2017-05-28 10:02] LABS: ARTERIAL BLOOD GAS PCO2 78.3 mmHg (35-45)
[2017-05-28 10:13] LABS: HEMOGLOBIN 11.1 GM/dL (10.7-15.3); MCH 25.3 pg (25.7-33.7); MCHC 28.4 g/dl (32.0-36.0); MEAN PLT VOLUME 9.6 fl (7.5-11.1); PLATELET COUNT 174 K/MM3 (134-434); RBC 4.38 M/mm3 (3.60-5.2); RDW 21.4 % (11.6-15.6); WHITE BLOOD COUNT 21.1 K/mm3 (4.0-10.0)
--- NOTE | 2017-05-28 10:27 | PROC ---
Intubation - Intubation Reason for Intubation: Respiratory Failure, Airway Protection (cardiopulmonary arrest) Time of Intubation: 09:30 Intubation Method: orotracheal Blade used: Mac (initial attempt with Nolasco-ETT in esophagus) Tube Size (cm): 7.5 Tube position @ lip (cm): 20 Tube position confirmed by: Direct visualization, CO2 detector, Chest x-ray ( CXR pending), Breath sounds Breath Sounds after Intubation: equal Post Intubation Xray: Yes (pending) Remarks: Called re. Code 99/Anesthesia Stat. On arrival, pt. in cardiopulmonary arrest with ACLS in progress. First attempt on airway, inadequate view due to secretions; suction initially unavailable. On initial placement of ETT, positive color change, breath sounds heard. However, called back as stomach was becoming distended. ETT removed and next attempt with improved view after suctioning copious secretions from airway; cords seen. ETT passed with ease, positive color change, bilateral breath sounds equal. NG tube placed and stomach decompressed. Airway secured by respiratory team. Further management/ care continued by medical team.
[2017-05-28 10:29] LABS: INR 0.95 (0.82-1.09); PROTHROMBIN TIME (PATIENT) 10.7 SEC (9.98-11.88)
[2017-05-28 10:31] LABS: ACTIVATED PTT 28.8 SECONDS (26.9-34.4)
[2017-05-28 10:55] LABS: ALBUMIN 2.1 g/dl (3.4-5.0); ANION GAP 12 (8-16); BLOOD UREA NITROGEN 19 mg/dL (7-18); CALCIUM 11.5 mg/dL (8.5-10.1); CHLORIDE 111 mmol/L (98-107); CO2 31 mmol/L (21-32); CREATININE 0.9 mg/dL (0.55-1.02); GLUCOSE,RANDOM 101 mg/dL (74-106); MAGNESIUM 5.8 mg/dL (1.8-2.4); PHOSPHOROUS 6.7 mg/dL (2.5-4.9); POTASSIUM 4.6 mmol/L (3.5-5.1); SODIUM 154 mmol/L (136-145)
[2017-05-28] MEDS ORDERED: NOREPINEPHRINE BITARTRATE 4 MG/4 ML ML IV ONE (10:58)
[2017-05-28 11:02] LABS: ALK PHOS 166 U/L (45-117); BILIRUBIN,TOTAL 0.5 mg/dL (0.2-1.0); TOT PROT 4.9 g/dl (6.4-8.2)
[2017-05-28 11:07] LABS: SGOT/AST 1425 U/L (15-37); SGPT/ALT 1109 U/L (12-78)
[2017-05-28] MEDS ORDERED: NOREPINEPHRINE BITARTRATE 8,000 MCG in DEXTROSE 5%-WATER - 492 ML IV SCH (11:30)
--- NOTE | 2017-05-28 11:39 | RAPID ---
Physical Examination Vital Signs: Vital Signs Temperature 99.1 F 05/28/17 05:58 Pulse Rate 114 H 05/28/17 08:07 Respiratory Rate 22 05/28/17 05:58 Blood Pressure 136/55 05/28/17 05:58 O2 Sat by Pulse Oximetry (%) 96 05/28/17 08:07 Labs: CBC, BMP 05/28/17 09:50 05/28/17 09:50 Rapid Response - Rapid Response Assessment: Code 99 was called at 9:10am in 4W. Rapid response team reached there immediately. RN mentioned that patient was found to be in asystole. Checked in the chart, patient was full code. ACLS protocol was started with CPR. Total of 3 amps of epi, 1 Sodium bicarbonate, 1 calcium gluconate was given. Anesthesia was called and patient was intubated. Obtained ROSC. Informed Dr. Zuniga and the family who arrived shortly. Again, Code Gerry was called at 9:30am. She was found to be in asystole, saturation dropped to 60's/ . CPR was started, 2 amps of bicarbonate was given, 2 mg of Magnesium given. Patient started to have abdominal distention, anesthesia was called again. ET tube was removed and reinserted successfully, NG was inserted and stomach was decompressed. ROSC was obtained at 9:43 am. All labs were sent stat: CBC, CMP, Mg, Phos, Cardiac profile, Lactic acid, ABG. ICU team was informed and transferred patient immediately to the ICU for further management.
[2017-05-28] MEDS: PROPOFOL 1,000,000 MCG/100 ML VIAL IVPB SCH (12:06)
[2017-05-28] MEDS ORDERED: FENTANYL INJECTION 500 MCG in SODIUM CHLORIDE 90 ML IVPB SCH (12:15)
[2017-05-28] MEDS ORDERED: fentaNYL CITRATE 250 MCG/5 ML VIAL ONE ×2 (12:16→21:14)
--- NOTE | 2017-05-28 12:33 | PN ---
Physical Exam: SUBJECTIVE: Patient seen and examined The patient is a 76 year old female with a history of COPD, CHF, recent hip Fx and replacement 04/18 c/b COPD exacerbation who presented with acute respiratory failure. The patient was transferred to telemetry floor yesterday however was found unresponsive and a CODE 99 was called at approximately 9: 10am. ROSC was obtained after 3 rounds of epi and the patient coded again at 9: 30am with RSOC once again being obtained. The patient was transferred again to the ICU with hypotension. A central line was placed and the patient was placed on levophed. OBJECTIVE: Vital Signs Period Temp Pulse Resp BP Sys/Ellis Pulse Ox Last 24 Hr 98.6 F-99.8 F 108-117 20-25 122-138/55-80 96-98 GENERAL: The patient is intubated, in no acute distress. HEAD: Normal with no signs of trauma. EYES: sclera anicteric, conjunctiva clear. No ptosis. ENT: oropharynx clear without exudates, moist mucous membranes. NECK: Trachea midline, full range of motion, supple. LUNGS: Breath sounds equal, Course crackles auscultated on the right, no wheezes , no accessory muscle use. HEART: Regular rate and rhythm, S1, S2 without murmur, rub or gallop. ABDOMEN: Soft, nontender, nondistended, normoactive bowel sounds, no guarding, no rebound, no hepatosplenomegaly, no masses. EXTREMITIES: 2+ pulses, warm, well-perfused, no edema. NEUROLOGICAL: Normal speech, gait not observed. PSYCH: Normal mood, normal affect. SKIN: Warm, dry, normal turgor, no rashes or lesions noted Laboratory Results - last 24 hr 05/27/17 05/28/17 05/28/17 05:27 06:45 06:45 WBC 19.1 H RBC 4.17 Hgb 10.7 Hct 36.2 MCV 86.8 MCH 25.7 MCHC 29.6 L RDW 20.9 H Plt Count 140 MPV 9.5 Neutrophils % 96.7 H Neutrophils % (Manual) 68.7 D Band Neutrophils % 28.3 Lymphocytes % 1.4 L D Lymphocytes % (Manual) 1.0 L D Monocytes % 1.8 L Monocytes % (Manual) 2 L Eosinophils % 0.0 Eosinophils % (Manual) 0.0 Basophils % 0.1 Basophils % (Manual) 0.0 Myelocytes % (Man) 0 Promyelocytes % (Man) 0 Metamyelocytes 0 Hypochromia 0 Platelet Estimate Decreased Polychromasia 1+ Poikilocytosis 0 Anisocytosis 2+ Microcytosis 0 Macrocytosis 0 PT with INR INR PTT (Actin FS) Puncture Site ABG pH ABG pCO2 at Pt Temp ABG pO2 at Pt Temp ABG HCO3 ABG O2 Sat (Measured) ABG O2 Content ABG Base Excess Edilberto Test O2 Delivery Device Oxygen Flow Rate Sodium 148 H Potassium 4.4 Chloride 108 H Carbon Dioxide 34 H Anion Gap 6 L BUN 16 Creatinine 0.4 L Creat Clearance w eGFR POC Glucometer Random Glucose 131 H Lactic Acid Calcium 7.4 L Phosphorus 2.3 L Magnesium 2.8 H Total Bilirubin AST ALT Alkaline Phosphatase Creatine Kinase Creatine Kinase Index CK-MB (CK-2) Troponin I Total Protein Albumin 05/28/17 05/28/17 05/28/17 09:26 09:45 09:50 WBC 21.1 H RBC 4.38 Hgb 11.1 Hct 39.0 MCV 89.0 MCH 25.3 L MCHC 28.4 L RDW 21.4 H Plt Count 174 D MPV 9.6 Neutrophils % No Result Required. Neutrophils % (Manual) Band Neutrophils % Lymphocytes % No Result Required. Lymphocytes % (Manual) Monocytes % Monocytes % (Manual) Eosinophils % Eosinophils % (Manual) Basophils % Basophils % (Manual) Myelocytes % (Man) Promyelocytes % (Man) Metamyelocytes Hypochromia Platelet Estimate Polychromasia Poikilocytosis Anisocytosis Microcytosis Macrocytosis PT with INR INR PTT (Actin FS) Puncture Site Left radial ABG pH 7.16 L* ABG pCO2 at Pt Temp 78.3 H* D ABG pO2 at Pt Temp 216.0 H* D ABG HCO3 27.0 H ABG O2 Sat (Measured) 99.4 H ABG O2 Content 14.9 L ABG Base Excess -2.6 L Edilberto Test Positive O2 Delivery Device Amble bag Oxygen Flow Rate 100% Sodium Potassium Chloride Carbon Dioxide Anion Gap BUN Creatinine Creat Clearance w eGFR POC Glucometer 122 Random Glucose Lactic Acid Calcium Phosphorus Magnesium Total Bilirubin AST ALT Alkaline Phosphatase Creatine Kinase Creatine Kinase Index CK-MB (CK-2) Troponin I Total Protein Albumin 01/05/28/17 05/28/17 09:50 09:50 09:50 WBC RBC Hgb Hct MCV MCH MCHC RDW Plt Count MPV Neutrophils % Neutrophils % (Manual) Band Neutrophils % Lymphocytes % Lymphocytes % (Manual) Monocytes % Monocytes % (Manual) Eosinophils % Eosinophils % (Manual) Basophils % Basophils % (Manual) Myelocytes % (Man) Promyelocytes % (Man) Metamyelocytes Hypochromia Platelet Estimate Polychromasia Poikilocytosis Anisocytosis Microcytosis Macrocytosis PT with INR 10.70 INR 0.95 PTT (Actin FS) 28.8 Puncture Site ABG pH ABG pCO2 at Pt Temp ABG pO2 at Pt Temp ABG HCO3 ABG O2 Sat (Measured) ABG O2 Content ABG Base Excess Edilberto Test O2 Delivery Device Oxygen Flow Rate Sodium 154 H Potassium 4.6 Chloride 111 H Carbon Dioxide 31 Anion Gap 12 BUN 19 H Creatinine 0.9 Creat Clearance w eGFR > 60 POC Glucometer Random Glucose 101 Lactic Acid 10.1 H* Calcium 11.5 H Phosphorus 6.7 H Magnesium 5.8 H Total Bilirubin 0.5 D AST 1425 H ALT 1109 H Alkaline Phosphatase 166 H Creatine Kinase 187 Creatine Kinase Index 1.8 CK-MB (CK-2) 3.471 Troponin I 0.17 H Total Protein 4.9 L Albumin 2.1 L Active Medications Generic Name Dose Route Start Last Admin Trade Name Freq PRN Reason Stop Dose Admin Acetaminophen 325 mg 05/27/17 12:22 Tylenol Suppository - [place] Q4H PRN FEVER Albuterol Sulfate 1 amp 05/27/17 12:22 05/28/17 08:07 Ventolin 0.083% Nebulizer Soln - NEB 1 amp Q4H PRN Administration SHORT OF BREATH/WHEEZING Atorvastatin Calcium 10 mg 05/27/17 22:00 05/27/17 22:27 Lipitor - PO 10 mg HS JEANNA Administration Diltiazem HCl 120 mg 05/27/17 22:00 05/28/17 09:30 Cardizem Cd - PO Not Given BID JEANNA Enoxaparin Sodium 40 mg 05/28/17 10:00 05/28/17 09:30 Lovenox - SQ Not Given DAILY JEANNA Ferrous Sulfate 325 mg 05/27/17 22:00 05/28/17 06:30 Feosol - PO 325 mg TID JEANNA Administration Piperacillin Sod/Tazobactam 100 mls @ 200 mls/hr 05/27/17 18:00 05/28/17 10: 00 Sod 3.375 gm/ Dextrose IVPB Not Given Q8H-IV JEANNA Norepinephrine Bitartrate 8, 500 mls @ 18.75 mls/hr 05/28/17 11:30 05/28/17 12:03 000 mcg/ Dextrose IV 5 mcg/min TITR JEANNA 18.75 mls/hr Protocol Administration 5 MCG/MIN Propofol 1,000,000 mcg in 100 mls @ 1.666 mls/hr 05/28/17 11:30 05/28/17 12: 06 Diprivan - IVPB 15 mcg/kg/min TITR JEANNA 4.997 mls/hr Protocol Administration 5 MCG/KG/MIN Fentanyl 500 mcg/ Dextrose 100 mls @ 10 mls/hr 05/28/17 12:30 IVPB TITR JEANNA 50 MCG/HR Latanoprost 1 drop 05/27/17 22:00 05/27/17 22:31 Xalatan 0.005% Eye Drops - OU 1 drop HS JEANNA Administration Loratadine 10 mg 05/28/17 10:00 05/28/17 09:30 Claritin - PO Not Given DAILY JEANNA Methylprednisolone Sodium Succinate 40 mg 05/27/17 15:00 05/28/17 09:30 Solu-Medrol - IVPUSH Not Given Q6H-IV JEANNA Montelukast Sodium 10 mg 05/27/17 22:00 05/27/17 22:27 Singulair - PO 10 mg HS JEANNA Administration Multivitamins/Minerals/Vitamin C 1 tab 05/28/17 10:00 05/28/17 09:30 Tab-A-Vit - PO Not Given DAILY JEANNA Pantoprazole Sodium 40 mg 05/28/17 10:00 05/28/17 09:30 Protonix Iv IVPUSH Not Given DAILY JEANNA Tiotropium [place] 1 puff 05/28/17 10:00 05/28/17 09:30 Spiriva - IH Not Given DAILY JEANNA ASSESSMENT/PLAN: The patient is a 76 year old female with a history of COPD, CHF, recent hip Fx and replacement 04/18 c/b COPD exacerbation who presented with acute respiratory failure. NEURO Patient sedated due to intubation -Continue propofol and fentanyl drips. -Will continue to monitor. CV #Hypotension The patient had a 2 cardiac arrests earlier today with RSOC now hypotensive in the ICU requiring pressors. -Continue levophed drip and titrate as needed to maintain MAP >65. -Central line place -Will continue to monitor. RESP #Acute respiratory failure Patient now re-intubated following a cardiac arrest earlier today. Chest plain film demonstrates right sided rib fractures likely due to chest compressions. It is likely the patient aspirated leading to a respiratory arrest that led to the cardiac arrest. -Will cover the patient with vancomycin and zosyn. -Will maintain the patient on the ventilator. -Will follow up with a repeat ABG. -Will continue to monitor. GI -OG tube with feeds. Renal No issues currently. -Will continue to monitor bun/creatinine. ID #Pneumonia vs. Influenza vs. RSV -Continue zosyn. -Will start Vancomycin given concern for aspiration -Follow recs from ID MSK No issues currently FEN/GI -Replete electrolytes PRN, will monitor -IV fluids PPX -Lovenox 40 sq daily -Protonix 40 IV daily for GI ppx DISPO: Continue ICU level of care. Visit type - Emergency Visit Emergency Visit: No - New Patient This patient is new to me today: No - Critical Care Critical Care patient: Yes Total Critical Care Time (in minutes): 35 Critical Care Statement: The care of this patient involved high complexity decision making to prevent further life threatening deterioration of the patient 's condition and/or to evaluate & treat vital organ system(s) failure or risk of failure.
[2017-05-28] MEDS: FENTANYL INJECTION 500 MCG in SODIUM CHLORIDE 90 ML IVPB SCH (12:41)
--- NOTE | 2017-05-28 12:44 | PN ---
Teaching Attending Note Name of Resident: Rigoberto Eddy ATTENDING PHYSICIAN STATEMENT I saw and evaluated the patient. I reviewed the resident's note and discussed the case with the resident. I agree with the resident's findings and plan as documented. SUBJECTIVE: Patient seen and examined in the ICU. Rapid response called on the floors due to cardiac arrest. CPR : time to ROSC unclear. Now intubated and sedated on Fentanyl. AC Mode of vent, 100% FiO2. NE infusing for hemodynamic support. CXR: ETT in place / increased dense infiltrates on the Right. OBJECTIVE: Intake & Output 05/25/17 05/26/17 05/27/17 05/28/17 23:59 23:59 23:59 23:59 Intake Total 1522 1240 Output Total 400 1900 1150 Balance -400 -378 90 Weight 126 lb 8.725 oz 127 lb 3.2 oz 122 lb 6.4 oz Last Vital Signs Temp Pulse Resp BP Pulse Ox 99.1 F 114 H 22 136/55 96 05/28/17 05:58 05/28/17 08:07 05/28/17 05:58 05/28/17 05:58 05/28/17 08:07 Active Medications Acetaminophen (Tylenol Suppository -) 325 mg [place] Q4H PRN PRN Reason: FEVER Albuterol Sulfate (Ventolin 0.083% Nebulizer Soln -) 1 amp NEB Q4H PRN PRN Reason: SHORT OF BREATH/WHEEZING Last Admin: 05/28/17 08:07 Dose: 1 amp Atorvastatin Calcium (Lipitor -) 10 mg PO HS [facility] Last Admin: 05/27/17 22:27 Dose: 10 mg Diltiazem HCl (Cardizem Cd -) 120 mg PO BID [facility] Last Admin: 05/28/17 09:30 Dose: Not Given Enoxaparin Sodium (Lovenox -) 40 mg SQ DAILY [facility] Last Admin: 05/28/17 09:30 Dose: Not Given Ferrous Sulfate (Feosol -) 325 mg PO TID [facility] Last Admin: 05/28/17 06:30 Dose: 325 mg Piperacillin Sod/Tazobactam (Sod 3.375 gm/ Dextrose) 100 mls @ 200 mls/hr IVPB Q8H-IV [facility] Last Admin: 05/28/17 10:00 Dose: Not Given Norepinephrine Bitartrate 8, (000 mcg/ Dextrose) 500 mls @ 18.75 mls/hr IV TITR JEANNA; 5 MCG/MIN PRN Reason: Protocol Last Admin: 05/28/17 12:03 Dose: 5 mcg/min, 18.75 mls/hr Propofol (Diprivan -) 1,000,000 mcg in 100 mls @ 1.666 mls/hr IVPB TITR JEANNA; 5 MCG/KG/MIN PRN Reason: Protocol Last Admin: 05/28/17 12:06 Dose: 15 mcg/kg/min, 4.997 mls/hr Fentanyl 500 mcg/ Sodium (Chloride) 100 mls @ 10 mls/hr IVPB TITR JEANNA; 50 MCG/ HR PRN Reason: Protocol Last Admin: 05/28/17 12:41 Dose: 10 mls/hr Latanoprost (Xalatan 0.005% Eye Drops -) 1 drop OU HS [facility] Last Admin: 05/27/17 22:31 Dose: 1 drop Loratadine (Claritin -) 10 mg PO DAILY [facility] Last Admin: 05/28/17 09:30 Dose: Not Given Methylprednisolone Sodium Succinate (Solu-Medrol -) 40 mg IVPUSH Q6H-IV [facility] Last Admin: 05/28/17 09:30 Dose: Not Given Montelukast Sodium (Singulair -) 10 mg PO HS [facility] Last Admin: 05/27/17 22:27 Dose: 10 mg Multivitamins/Minerals/Vitamin C (Tab-A-Vit -) 1 tab PO DAILY [facility] Last Admin: 05/28/17 09:30 Dose: Not Given Pantoprazole Sodium (Protonix Iv) 40 mg IVPUSH DAILY [facility] Last Admin: 05/28/17 09:30 Dose: Not Given Tiotropium [place] (Spiriva -) 1 puff IH DAILY [facility] Last Admin: 05/28/17 09:30 Dose: Not Given Gen: Intubated and sedated Heart: tachycardic Lung: Coarse crackles/rhonchi on the right, no wheeze Abd: soft, nontender Ext: no edema Neuro: sedated Laboratory Results - last 24 hr 05/27/17 05/28/17 05/28/17 05:27 06:45 06:45 WBC 19.1 H RBC 4.17 Hgb 10.7 Hct 36.2 MCV 86.8 MCH 25.7 MCHC 29.6 L RDW 20.9 H Plt Count 140 MPV 9.5 Neutrophils % 96.7 H Neutrophils % (Manual) 68.7 D Band Neutrophils % 28.3 Lymphocytes % 1.4 L D Lymphocytes % (Manual) 1.0 L D Monocytes % 1.8 L Monocytes % (Manual) 2 L Eosinophils % 0.0 Eosinophils % (Manual) 0.0 Basophils % 0.1 Basophils % (Manual) 0.0 Myelocytes % (Man) 0 Promyelocytes % (Man) 0 Metamyelocytes 0 Hypochromia 0 Platelet Estimate Decreased Polychromasia 1+ Poikilocytosis 0 Anisocytosis 2+ Microcytosis 0 Macrocytosis 0 PT with INR INR PTT (Actin FS) Puncture Site ABG pH ABG pCO2 at Pt Temp ABG pO2 at Pt Temp ABG HCO3 ABG O2 Sat (Measured) ABG O2 Content ABG Base Excess Edilbreto Test O2 Delivery Device Oxygen Flow Rate Sodium 148 H Potassium 4.4 Chloride 108 H Carbon Dioxide 34 H Anion Gap 6 L BUN 16 Creatinine 0.4 L Creat Clearance w eGFR POC Glucometer Random Glucose 131 H Lactic Acid Calcium 7.4 L Phosphorus 2.3 L Magnesium 2.8 H Total Bilirubin AST ALT Alkaline Phosphatase Creatine Kinase Creatine Kinase Index CK-MB (CK-2) Troponin I Total Protein Albumin 05/28/17 05/28/17 05/28/17 09:26 09:45 09:50 WBC 21.1 H RBC 4.38 Hgb 11.1 Hct 39.0 MCV 89.0 MCH 25.3 L MCHC 28.4 L RDW 21.4 H Plt Count 174 D MPV 9.6 Neutrophils % No Result Required. Neutrophils % (Manual) Band Neutrophils % Lymphocytes % No Result Required. Lymphocytes % (Manual) Monocytes % Monocytes % (Manual) Eosinophils % Eosinophils % (Manual) Basophils % Basophils % (Manual) Myelocytes % (Man) Promyelocytes % (Man) Metamyelocytes Hypochromia Platelet Estimate Polychromasia Poikilocytosis Anisocytosis Microcytosis Macrocytosis PT with INR INR PTT (Actin FS) Puncture Site Left radial ABG pH 7.16 L* ABG pCO2 at Pt Temp 78.3 H* D ABG pO2 at Pt Temp 216.0 H* D ABG HCO3 27.0 H ABG O2 Sat (Measured) 99.4 H ABG O2 Content 14.9 L ABG Base Excess -2.6 L Edilberto Test Positive O2 Delivery Device Amble bag Oxygen Flow Rate 100% Sodium Potassium Chloride Carbon Dioxide Anion Gap BUN Creatinine Creat Clearance w eGFR POC Glucometer 122 Random Glucose Lactic Acid Calcium Phosphorus Magnesium Total Bilirubin AST ALT Alkaline Phosphatase Creatine Kinase Creatine Kinase Index CK-MB (CK-2) Troponin I Total Protein Albumin 05/28/17 05/28/17 05/28/17 09:50 09:50 09:50 WBC RBC Hgb Hct MCV MCH MCHC RDW Plt Count MPV Neutrophils % Neutrophils % (Manual) Band Neutrophils % Lymphocytes % Lymphocytes % (Manual) Monocytes % Monocytes % (Manual) Eosinophils % Eosinophils % (Manual) Basophils % Basophils % (Manual) Myelocytes % (Man) Promyelocytes % (Man) Metamyelocytes Hypochromia Platelet Estimate Polychromasia Poikilocytosis Anisocytosis Microcytosis Macrocytosis PT with INR 10.70 INR 0.95 PTT (Actin FS) 28.8 Puncture Site ABG pH ABG pCO2 at Pt Temp ABG pO2 at Pt Temp ABG HCO3 ABG O2 Sat (Measured) ABG O2 Content ABG Base Excess Edilberto Test O2 Delivery Device Oxygen Flow Rate Sodium 154 H Potassium 4.6 Chloride 111 H Carbon Dioxide 31 Anion Gap 12 BUN 19 H Creatinine 0.9 Creat Clearance w eGFR > 60 POC Glucometer Random Glucose 101 Lactic Acid 10.1 H* Calcium 11.5 H Phosphorus 6.7 H Magnesium 5.8 H Total Bilirubin 0.5 D AST 1425 H ALT 1109 H Alkaline Phosphatase 166 H Creatine Kinase 187 Creatine Kinase Index 1.8 CK-MB (CK-2) 3.471 Troponin I 0.17 H Total Protein 4.9 L Albumin 2.1 L ASSESSMENT AND PLAN: Acute Hypoxic and Hypercapneic Respiratory Failure Pneumonia r/o Influenza Acute COPD Exacerbation LV Diastolic Dysfunction Pulmonary HTN - continue antibiotics / vanco / ID follow up. - Medrol - inhaled bronchodilators standing and PRN - AC Mode of vent Incentive Spirometry - Enteral feeds - DVT/GI prophylaxis - IVF - Follow Lactic Acid - Strict I & O - Cardiac enzymes - Patient was made DNR by her son Dr Carranza Critical care time spent in reviewing chart, evaluating patient and formulating plan 35 min
--- NOTE | 2017-05-28 12:51 | PROC ---
Central Line Insertion Indication: Poor Venous Access, Vasopressor Risks and Benefits Explained: No (emergent/no IV access) Consent on Chart: No Central Line: Triple Lumen Catheter Anesthesia: 1% Lidocaine Sterile Technique: Yes Ultrasound Guided Assistance: Yes Position: Right Internal Jugular Post Insertion: Yes: Bilateral Breath Sounds, Bilateral Chest Expansion, Chest X-Ray Ordered Sterile Dressing Applied: Yes
[2017-05-28] MEDS ORDERED: VANCOMYCIN 1,000 MG in DEXTROSE 5%-WATER - 250 ML IVPB ONE (13:30)
[2017-05-28 13:36] LABS: ARTERIAL BLD GAS O2 SATURATION 97.9 % (90-98.9); ARTERIAL BLOOD GAS PCO2 57.2 mmHg (35-45); ARTERIAL BLOOD GAS PO2 96.2 mmHg (70-100); ARTERIAL BLOOD GAS pH 7.36 (7.35-7.45)
[2017-05-28 13:40] LABS: ALLENS TEST POSITIVE
[2017-05-28 14:04] LABS: PLATELET ESTIMATE NORMAL; TARGET CELLS 1+; TEAR DROP CELLS 1+
--- NOTE | 2017-05-28 15:40 | PN ---
Progress Note, Physician History of Present Illness: events noted patient coded again was intubated back now intubated - Current Medication List Current Medications: Active Medications Acetaminophen (Tylenol Suppository -) 325 mg OR Q4H PRN PRN Reason: FEVER Albuterol Sulfate (Ventolin 0.083% Nebulizer Soln -) 1 amp NEB Q4H PRN PRN Reason: SHORT OF BREATH/WHEEZING Last Admin: 05/28/17 08:07 Dose: 1 amp Atorvastatin Calcium (Lipitor -) 10 mg PO HS JEANNA Last Admin: 05/27/17 22:27 Dose: 10 mg Diltiazem HCl (Cardizem Cd -) 120 mg PO BID JEANNA Last Admin: 05/28/17 09:30 Dose: Not Given Enoxaparin Sodium (Lovenox -) 40 mg SQ DAILY JEANNA Last Admin: 05/28/17 09:30 Dose: Not Given Ferrous Sulfate (Feosol -) 325 mg PO TID JEANNA Last Admin: 05/28/17 14:51 Dose: Not Given Piperacillin Sod/Tazobactam (Sod 3.375 gm/ Dextrose) 100 mls @ 200 mls/hr IVPB Q8H-IV JEANNA Last Admin: 05/28/17 10:00 Dose: Not Given Norepinephrine Bitartrate 8, (000 mcg/ Dextrose) 500 mls @ 18.75 mls/hr IV TITR JEANNA; 5 MCG/MIN PRN Reason: Protocol Last Admin: 05/28/17 12:03 Dose: 5 mcg/min, 18.75 mls/hr Propofol (Diprivan -) 1,000,000 mcg in 100 mls @ 1.666 mls/hr IVPB TITR JEANNA; 5 MCG/KG/MIN PRN Reason: Protocol Last Admin: 05/28/17 12:06 Dose: 15 mcg/kg/min, 4.997 mls/hr Fentanyl 500 mcg/ Sodium (Chloride) 100 mls @ 10 mls/hr IVPB TITR JEANNA; 50 MCG/ HR PRN Reason: Protocol Last Admin: 05/28/17 12:41 Dose: 10 mls/hr Sodium Chloride (Normal Saline -) 1,000 mls @ 100 mls/hr IV ASDIR JEANNA Latanoprost (Xalatan 0.005% Eye Drops -) 1 drop OU HS JEANNA Last Admin: 05/27/17 22:31 Dose: 1 drop Loratadine (Claritin -) 10 mg PO DAILY [facility] Last Admin: 05/28/17 09:30 Dose: Not Given Methylprednisolone Sodium Succinate (Solu-Medrol -) 40 mg IVPUSH Q6H-IV [facility] Last Admin: 05/28/17 09:30 Dose: Not Given Montelukast Sodium (Singulair -) 10 mg PO HS [facility] Last Admin: 05/27/17 22:27 Dose: 10 mg Multivitamins/Minerals/Vitamin C (Tab-A-Vit -) 1 tab PO DAILY [facility] Last Admin: 05/28/17 09:30 Dose: Not Given Pantoprazole Sodium (Protonix Iv) 40 mg IVPUSH DAILY [facility] Last Admin: 05/28/17 09:30 Dose: Not Given Tiotropium [place] (Spiriva -) 1 puff IH DAILY [facility] Last Admin: 05/28/17 09:30 Dose: Not Given - Objective Vital Signs: Vital Signs Temperature 97.9 F 05/28/17 08:00 Pulse Rate 114 H 05/28/17 08:07 Respiratory Rate 14 05/28/17 13:30 Blood Pressure 110/78 05/28/17 08:00 O2 Sat by Pulse Oximetry (%) 95 05/28/17 09:00 Constitutional: Yes: Other Cardiovascular: Yes: Pulse Irregular Respiratory: Yes: Intubated, Mechanically Ventilated, Other Gastrointestinal: Yes: Normal Bowel Sounds, Soft Musculoskeletal: Yes: WNL Extremities: Yes: WNL Wound/Incision: Yes: Other (small skin breakdown sacral area) Neurological: Yes: Other Labs: CBC, BMP 05/28/17 09:50 05/28/17 09:50 INR, PTT INR 0.95 (0.82-1.09) 05/28/17 09:50 Assessment/Plan Problem List - Problems (1) Acute and chronic respiratory failure with hypercapnia Code(s): J96.22 - ACUTE AND CHRONIC RESPIRATORY FAILURE WITH HYPERCAPNIA (2) COPD exacerbation Code(s): J44.1 - CHRONIC OBSTRUCTIVE PULMONARY DISEASE W (ACUTE) EXACERBATION (3) CHF (congestive heart failure) Code(s): I50.9 - HEART FAILURE, UNSPECIFIED Qualifiers: Congestive heart failure type: diastolic Congestive heart failure chronicity: chronic Qualified Code(s): I50.32 - Chronic diastolic (congestive ) heart failure (4) Fracture, hip Code(s): S72.009A - FRACTURE OF UNSP PART OF NECK OF UNSP FEMUR, INIT Qualifiers: Encounter type: initial encounter Fracture type: closed Laterality: left Qualified Code(s): S72.002A - Fracture of unspecified part of neck of left femur, initial encounter for closed fracture (5) Hypertension Code(s): I10 - ESSENTIAL (PRIMARY) HYPERTENSION 6 pneumonia 7 leukocytosis 8 uti plan patient receive abx looking at all the events and her getting re intubated will broaden the coverage now and also urine coming positive plan continue zosyn continue monitoring will add vanco rest as per icu and primary close monitoring cc time 40 min
--- NOTE | 2017-05-28 17:11 | PN ---
Progress Note, Physician Chief Complaint: Called to room as patient was being resuscitated. Patient was found to be breathing agonally by staff. Rapid response called which turned into a code when patient became asystolic. She was intubated and resuscitated, however became asystolic a second time. ET tube adjusted and resuscitated second time successfully. Currently unresponsive. - Current Medication List Current Medications: Active Medications Acetaminophen (Tylenol Suppository -) 325 mg [place] Q4H PRN PRN Reason: FEVER Albuterol Sulfate (Ventolin 0.083% Nebulizer Soln -) 1 amp NEB Q4H PRN PRN Reason: SHORT OF BREATH/WHEEZING Last Admin: 05/28/17 08:07 Dose: 1 amp Atorvastatin Calcium (Lipitor -) 10 mg PO HS JEANNA Last Admin: 05/27/17 22:27 Dose: 10 mg Diltiazem HCl (Cardizem Cd -) 120 mg PO BID JEANNA Last Admin: 05/28/17 09:30 Dose: Not Given Enoxaparin Sodium (Lovenox -) 40 mg SQ DAILY JEANNA Last Admin: 05/28/17 09:30 Dose: Not Given Ferrous Sulfate (Feosol -) 325 mg PO TID JEANNA Last Admin: 05/28/17 14:51 Dose: Not Given Piperacillin Sod/Tazobactam (Sod 3.375 gm/ Dextrose) 100 mls @ 200 mls/hr IVPB Q8H-IV JEANNA Last Admin: 05/28/17 10:00 Dose: Not Given Norepinephrine Bitartrate 8, (000 mcg/ Dextrose) 500 mls @ 18.75 mls/hr IV TITR JEANNA; 5 MCG/MIN PRN Reason: Protocol Last Admin: 05/28/17 12:03 Dose: 5 mcg/min, 18.75 mls/hr Propofol (Diprivan -) 1,000,000 mcg in 100 mls @ 1.666 mls/hr IVPB TITR JEANNA; 5 MCG/KG/MIN PRN Reason: Protocol Last Admin: 05/28/17 12:06 Dose: 15 mcg/kg/min, 4.997 mls/hr Fentanyl 500 mcg/ Sodium (Chloride) 100 mls @ 10 mls/hr IVPB TITR JEANNA; 50 MCG/ HR PRN Reason: Protocol Last Admin: 05/28/17 12:41 Dose: 10 mls/hr Sodium Chloride (Normal Saline -) 1,000 mls @ 100 mls/hr IV ASDIR JEANNA Vancomycin HCl 1,250 mg/ (Dextrose) 250 mls @ 166.667 mls/hr IVPB Q24H JEANNA PRN Reason: Protocol Latanoprost (Xalatan 0.005% Eye Drops -) 1 drop OU HS [facility] Last Admin: 05/27/17 22:31 Dose: 1 drop Loratadine (Claritin -) 10 mg PO DAILY [facility] Last Admin: 05/28/17 09:30 Dose: Not Given Methylprednisolone Sodium Succinate (Solu-Medrol -) 40 mg IVPUSH Q6H-IV [facility] Last Admin: 05/28/17 09:30 Dose: Not Given Montelukast Sodium (Singulair -) 10 mg PO HS [facility] Last Admin: 05/27/17 22:27 Dose: 10 mg Multivitamins/Minerals/Vitamin C (Tab-A-Vit -) 1 tab PO DAILY [facility] Last Admin: 05/28/17 09:30 Dose: Not Given Pantoprazole Sodium (Protonix Iv) 40 mg IVPUSH DAILY [facility] Last Admin: 05/28/17 09:30 Dose: Not Given Tiotropium [place] (Spiriva -) 1 puff IH DAILY [facility] Last Admin: 05/28/17 09:30 Dose: Not Given - Objective Vital Signs: Vital Signs Temperature 36.6 C 05/28/17 08:00 Pulse Rate 114 H 05/28/17 08:07 Respiratory Rate 14 05/28/17 13:30 Blood Pressure 110/78 05/28/17 08:00 O2 Sat by Pulse Oximetry (%) 95 05/28/17 09:00 Constitutional: Yes: Other (obtunded, minimal response to pain) Eyes: Yes: Other (minimal pupillary response secondary to cataracts, corneal response) Cardiovascular: Yes: Tachycardia. No: Gallop, Murmur, Rub Respiratory: Yes: Regular, Intubated, Mechanically Ventilated, Rhonchi. No: CTA Bilaterally, Rales, Wheezes Gastrointestinal: Yes: Normal Bowel Sounds, Soft, Distention. No: Tenderness Extremities: Yes: WNL Edema: No Labs: CBC, BMP 05/28/17 09:50 05/28/17 09:50 INR, PTT INR 0.95 (0.82-1.09) 05/28/17 09:50 Problem List - Problems (1) Asystole Code(s): I46.9 - CARDIAC ARREST, CAUSE UNSPECIFIED (2) Lactic acid acidosis Code(s): E87.2 - ACIDOSIS (3) Hemodynamic instability Code(s): R09.89 - OTH SYMPTOMS AND SIGNS INVOLVING THE CIRC AND RESP SYSTEMS (4) Shock liver Code(s): K72.00 - ACUTE AND SUBACUTE HEPATIC FAILURE WITHOUT COMA (5) RSV (respiratory syncytial virus pneumonia) Code(s): J12.1 - RESPIRATORY SYNCYTIAL VIRUS PNEUMONIA (6) Acute and chronic respiratory failure with hypercapnia Code(s): J96.22 - ACUTE AND CHRONIC RESPIRATORY FAILURE WITH HYPERCAPNIA (7) COPD exacerbation Code(s): J44.1 - CHRONIC OBSTRUCTIVE PULMONARY DISEASE W (ACUTE) EXACERBATION (8) CHF (congestive heart failure) Code(s): I50.9 - HEART FAILURE, UNSPECIFIED Qualifiers: Congestive heart failure type: diastolic Congestive heart failure chronicity: chronic Qualified Code(s): I50.32 - Chronic diastolic (congestive ) heart failure (9) Fracture, hip Code(s): S72.009A - FRACTURE OF UNSP PART OF NECK OF UNSP FEMUR, INIT Qualifiers: Encounter type: initial encounter Fracture type: closed Laterality: left Qualified Code(s): S72.002A - Fracture of unspecified part of neck of left femur, initial encounter for closed fracture (10) Hypertension Code(s): I10 - ESSENTIAL (PRIMARY) HYPERTENSION Assessment/Plan (1) Asystolic cardiac arrest -secondary to hypoxia -suspect from mucous plugging -successfully resuscitated with pulse -unclear if permanent neurological damage -transfer and care in the ICU -case d/w son and made aware of prognosis -made DNR as to not be resuscitated again, but continue pressors and ventilator support to see if recovering (2) Acute and chronic hypoxic respiratory failure Assessment/Plan: -recurrent and cause of asystole -intubated and mechanically ventilated -pulmonary following -evaluate for improvement,family aware as above may need palliative wean if no recovery Code(s): J96.22 - ACUTE AND CHRONIC RESPIRATORY FAILURE WITH HYPERCAPNIA (3) COPD exacerbation Assessment/Plan: -continue steroids Code(s): J44.1 - CHRONIC OBSTRUCTIVE PULMONARY DISEASE W (ACUTE) EXACERBATION (3) CHF (congestive heart failure) Assessment/Plan: -currently hypotensive requiring pressors -hold torsemide Code(s): I50.9 - HEART FAILURE, UNSPECIFIED Qualifiers: Congestive heart failure type: diastolic Congestive heart failure chronicity: chronic Qualified Code(s): I50.32 - Chronic diastolic (congestive ) heart failure (4) Fracture, hip Assessment/Plan: -reason for being at SNF -continue lovenox for DVT PPx Code(s): S72.009A - FRACTURE OF UNSP PART OF NECK OF UNSP FEMUR, INIT Qualifiers: Encounter type: initial encounter Fracture type: closed Laterality: left Qualified Code(s): S72.002A - Fracture of unspecified part of neck of left femur, initial encounter for closed fracture (5) Hypertension Assessment/Plan: -hold diltiazem and torsemide Code(s): I10 - ESSENTIAL (PRIMARY) HYPERTENSION (6) Hypocalcemia -replaced as needed (7) Shock Liver -secondary to prolonged code -support oxygenation and blood pressure -monitor for improvement (8) Hemodynamic instability -currently on pressors (9) Lactic acidosis -secondary to prolonged hypoxia -treatment as above Multiple discussions had with the son. Currently DNR but continue oxygenation and pressor support. Evaluate neurologic status over the weekend and see if has recovery. 62 minutes spent in total in critical care time with patient and family
[2017-05-28] MEDS: SODIUM CHLORIDE 1,000 ML IV SCH (17:46)
[2017-05-28] MEDS: VASOPRESSIN 50 UNITS in SODIUM CHLORIDE 97.5 ML IVPB SCH (17:47)
[2017-05-28] MEDS: NOREPINEPHRINE BITARTRATE 8,000 MCG in SODIUM CHLORIDE 492 ML IV SCH (18:47)
[2017-05-28 20:52] LABS: ANION GAP 6 (8-16); BLOOD UREA NITROGEN 33 mg/dL (7-18); CALCIUM 7.3 mg/dL (8.5-10.1); CHLORIDE 108 mmol/L (98-107); CO2 33 mmol/L (21-32); CREATININE 1.2 mg/dL (0.55-1.02); GLUCOSE,RANDOM 228 mg/dL (74-106); POTASSIUM 4.5 mmol/L (3.5-5.1); SODIUM 147 mmol/L (136-145)
[2017-05-28] MEDS: MONTELUKAST NA 10 MG TABLET PO SCH (21:26)
[2017-05-28] MEDS: ATORVASTATIN CA 10 MG TABLET (FP) PO SCH (21:27)
[2017-05-28] MEDS: LATANOPROST 0.005% OPHTH SOLN 2.5ML BOTTLE OU SCH (21:29)
[2017-05-29] MEDS ORDERED: PT OWN MED DRAWER 7, Y5N ONE ×3 (01:05→19:30)
[2017-05-29] MEDS ORDERED: ACETAMINOPHEN 1000 MG/100 ML VIAL (NON FORMULARY) IVPB PRN (02:10)
[2017-05-29] MEDS: PIPERACILLIN/TAZOB 3.375 GM 3.375 GM in DEXTROSE 5%-WATER - 100 ML IVPB SCH (02:18)
[2017-05-29] MEDS: methylPREDNISolone NA SUCC 40 MG/1 ML VIAL IVPUSH SCH ×4 (02:23→21:40)
[2017-05-29 06:23] LABS: BASO % 0.1 % (0-2.0); EOS % 0.1 % (0-4.5); HEMATOCRIT 30.5 % (32.4-45.2); HEMOGLOBIN 9.5 GM/dL (10.7-15.3); LYMPH % 5.7 % (8-40); MCH 26.3 pg (25.7-33.7); MCHC 31.2 g/dl (32.0-36.0); MEAN CELL VOLUME 84.2 fl (80-96); MEAN PLT VOLUME 9.8 fl (7.5-11.1); MONO % 4.5 % (3.8-10.2); NEUT % 89.6 % (42.8-82.8); PLATELET COUNT 112 K/MM3 (134-434); RBC 3.63 M/mm3 (3.60-5.2); RDW 20.7 % (11.6-15.6); WHITE BLOOD COUNT 11.8 K/mm3 (4.0-10.0)
[2017-05-29] MEDS: FERROUS SO4 325 MG TABLET (FP) PO SCH ×3 (06:29→21:40)
[2017-05-29] MEDS: FENTANYL INJECTION 500 MCG in SODIUM CHLORIDE 90 ML IVPB SCH ×2 (06:29→15:58)
[2017-05-29 06:52] LABS: ARTERIAL BLD GAS O2 SATURATION 97.4 % (90-98.9); ARTERIAL BLOOD GAS BASE EXCESS 3.6 meq/l (-2-2); ARTERIAL BLOOD GAS PCO2 51.2 mmHg (35-45); ARTERIAL BLOOD GAS PO2 91.3 mmHg (70-100); ARTERIAL BLOOD GAS pH 7.37 (7.35-7.45)
[2017-05-29 06:56] LABS: CHLORIDE 109 mmol/L (98-107); POTASSIUM 4.8 mmol/L (3.5-5.1); SODIUM 147 mmol/L (136-145)
[2017-05-29 07:19] LABS: ALBUMIN 1.9 g/dl (3.4-5.0); ALK PHOS 134 U/L (45-117); ANION GAP 5 (8-16); BILIRUBIN,TOTAL 0.6 mg/dL (0.2-1.0); BLOOD UREA NITROGEN 41 mg/dL (7-18); CALCIUM 7.1 mg/dL (8.5-10.1); CO2 33 mmol/L (21-32); CREATININE 1.5 mg/dL (0.55-1.02); GLUCOSE,RANDOM 177 mg/dL (74-106); MAGNESIUM 3.2 mg/dL (1.8-2.4); PHOSPHOROUS 2.1 mg/dL (2.5-4.9); TOT PROT 4.3 g/dl (6.4-8.2)
[2017-05-29 07:23] LABS: ALLENS TEST POSITIVE
[2017-05-29 07:28] LABS: SGOT/AST 1187 U/L (15-37); SGPT/ALT 1609 U/L (12-78)
[2017-05-29] MEDS ORDERED: NOREPINEPHRINE BITARTRATE 4 MG/4 ML ML IV ONE (08:15)
[2017-05-29] MEDS: PANTOPRAZOLE SODIUM 40 MG VIAL IVPUSH SCH (09:49)
[2017-05-29] MEDS: LORATADINE 10 MG TABLET PO SCH (09:50)
[2017-05-29] MEDS: MULTIVITAMINS (DAILY MVI) TABLET (FP) PO SCH (09:50)
[2017-05-29] MEDS: ENOXAPARIN NA (PORCINE) 40 MG/0.4 ML DISP.SYRIN SQ SCH (09:50)
[2017-05-29] MEDS: TIOTROPIUM BROMIDE 18 MCG/INH (DEVICE W/ 5 CAPSULES) IH SCH (09:53)
[2017-05-29] MEDS ORDERED: VANCOMYCIN 1,250 MG in DEXTROSE 5%-WATER - 250 ML IVPB SCH (10:00)
--- NOTE | 2017-05-29 10:19 | PN ---
Progress Note (short form) - Note Progress Note: PULM/CCM Pt seen & examined in the ICU. Pt remains intubated, sedated, on pressors. Urine Clxrs growing Enterococcus. Active Medications Acetaminophen (Tylenol Suppository -) 325 mg [place] Q4H PRN PRN Reason: FEVER Acetaminophen (Ofirmev Injection -) 1,000 mg IVPB Q6H PRN PRN Reason: FEVER Albuterol Sulfate (Ventolin 0.083% Nebulizer Soln -) 1 amp NEB Q4H PRN PRN Reason: SHORT OF BREATH/WHEEZING Last Admin: 05/28/17 08:07 Dose: 1 amp Atorvastatin Calcium (Lipitor -) 10 mg PO HS JEANNA Last Admin: 05/28/17 21:27 Dose: 10 mg Diltiazem HCl (Cardizem Cd -) 120 mg PO BID JEANNA Last Admin: 05/29/17 09:53 Dose: Not Given Enoxaparin Sodium (Lovenox -) 40 mg SQ DAILY JEANNA Last Admin: 05/29/17 09:50 Dose: 40 mg Ferrous Sulfate (Feosol -) 325 mg PO TID JEANNA Last Admin: 05/29/17 16:04 Dose: 325 mg Propofol (Diprivan -) 1,000,000 mcg in 100 mls @ 1.666 mls/hr IVPB TITR JEANNA; 5 MCG/KG/MIN PRN Reason: Protocol Last Admin: 05/29/17 15:57 Dose: 15 mcg/kg/min, 4.997 mls/hr Fentanyl 500 mcg/ Sodium (Chloride) 100 mls @ 10 mls/hr IVPB TITR JEANNA; 50 MCG/ HR PRN Reason: Protocol Last Admin: 05/29/17 15:58 Dose: 10 mls/hr Sodium Chloride (Normal Saline -) 1,000 mls @ 100 mls/hr IV ASDIR JEANNA Last Admin: 05/29/17 15:58 Dose: 100 mls/hr Vasopressin 50 units/ Sodium (Chloride) 100 mls @ 24 mls/hr IVPB TITR JEANNA; 0.2 UNITS/MIN PRN Reason: Protocol Last Titration: 05/28/17 19:17 Dose: 0.05 units/min, 6 mls/hr Norepinephrine Bitartrate 8, (000 mcg/ Sodium Chloride) 500 mls @ 18.75 mls/hr IV TITR JAENNA; 5 MCG/MIN PRN Reason: Protocol Last Titration: 05/29/17 04:15 Dose: 10 mcg/min, 37.5 mls/hr Piperacillin Sod/Tazobactam (Sod 2.25 gm/ Dextrose) 100 mls @ 100 mls/hr IVPB Q6H-IV JEANNA Last Admin: 05/29/17 15:59 Dose: 100 mls/hr Latanoprost (Xalatan 0.005% Eye Drops -) 1 drop OU HS [facility] Last Admin: 05/28/17 21:29 Dose: 1 drop Loratadine (Claritin -) 10 mg PO DAILY JEANNA Last Admin: 05/29/17 09:50 Dose: 10 mg Methylprednisolone Sodium Succinate (Solu-Medrol -) 40 mg IVPUSH Q6H-IV JEANNA Last Admin: 05/29/17 16:03 Dose: 40 mg Montelukast Sodium (Singulair -) 10 mg PO HS [facility] Last Admin: 05/28/17 21:26 Dose: 10 mg Multivitamins/Minerals/Vitamin C (Tab-A-Vit -) 1 tab PO DAILY [facility]ANNA Last Admin: 05/29/17 09:50 Dose: 1 tab Pantoprazole Sodium (Protonix Iv) 40 mg IVPUSH DAILY [facility] Last Admin: 05/29/17 09:49 Dose: 40 mg Tiotropium [place] (Spiriva -) 1 puff IH DAILY [facility] Last Admin: 05/29/17 09:53 Dose: Not Given V/S Period Temp Pulse Resp BP Sys/Ellis Pulse Ox Last 24 Hr 98.1 F-100.3 F 76-110 14-14 62-154/40-81 92-98 I's & O's 05/26/17 05/27/17 05/28/17 05/29/17 23:59 23:59 23:59 23:59 Intake Total 1522 1240 1780 2004.4 Output Total 1900 1150 5 150 Balance -738 81 6271 1854.4 Weight 57.697 kg 55.52 kg 56.8 kg GEN: Intubated, sedated, NAD PULM: Coarse L/S, no wheezing CV: nml S1 S2, RR, unable to appreciate any G/M/R Abd: + BS, soft, nontender Ext: + Pulses, WWPX4, no edema Neuro: sedated CBC, BMP 05/29/17 06:10 05/29/17 06:10 MICRO 05/25/17 05:57 Blood - Peripheral Venous Blood Culture - Preliminary NO GROWTH OBTAINED AFTER 96 HOURS, INCUBATION TO CONTINUE FOR 1 DAYS. 05/25/17 05:57 Blood - Peripheral Venous Blood Culture - Preliminary NO GROWTH OBTAINED AFTER 96 HOURS, INCUBATION TO CONTINUE FOR 1 DAYS. 05/25/17 16:26 Urine - Urine - Catheterized Urine Culture - Final Enterococcus Faecalis 05/25/17 07:13 Nasopharyngeal Swab Influenza Types A,B Antigen (LASHAE) - Final 05/25/17 07:13 Nasopharyngeal Swab - Final RECENT STUDIES TO NOTE: CXR 05/29: Since the prior exam 05/28/2017 at 1209 hours, the right jugular line and endotracheal tube with nasogastric tube persist. Again noted is a right effusion and right infiltrate. The left lung is relatively well aerated. There is an old fracture deformity of the proximal left humerus. This is a sclerotic knob. Correlation recommended Impression: Little change since prior study. ASSESS: This is a 76 y/o woman w/ CHF, severe COPD, and recent L femur fx ( surgery on 04/28, discharged on 05/07), readmitted on 05/25 w/ acute on chronic hypercapneic respiratory failure in the setting of RSV PNA, exacerb/o COPD +/- CHF requiring intubation. Extubated on 05/27 & convalescing on the floor, re- admitted to the ICU yesterday (05/28) s/p Cardiac Arrest on the floor, not cooled. Pt now w/ resp Fail and vasodilatory shock w/ unknown mental status. PLAN: -LPV -Nebs -Cont steroids -Spiriva -Wean FiO2 as tolerated -Wean sedation -Daily Sedation Holiday to eval mental status -D/c Vanc -Cont Zo -ID -IVFs for a CVP 12 - 16 -Press for a MAP of 65 -Trend LA -Strict I's O's -Monitor UOP -Trend BUN/Cr -Trend Roponin & BNP -TFs -Lovenox -PPI -DNR DGL, ACNP-BC [facility] ICU PULM/CCM [id number]
--- NOTE | 2017-05-29 10:44 | PN ---
Progress Note, Physician History of Present Illness: Remains intubated following respiratory and then cardiac arrest. appears non- responsive to stimulation. - Current Medication List Current Medications: Active Medications Acetaminophen (Tylenol Suppository -) 325 mg [place] Q4H PRN PRN Reason: FEVER Acetaminophen (Ofirmev Injection -) 1,000 mg IVPB Q6H PRN PRN Reason: FEVER Albuterol Sulfate (Ventolin 0.083% Nebulizer Soln -) 1 amp NEB Q4H PRN PRN Reason: SHORT OF BREATH/WHEEZING Last Admin: 05/28/17 08:07 Dose: 1 amp Atorvastatin Calcium (Lipitor -) 10 mg PO HS [facility] Last Admin: 05/28/17 21:27 Dose: 10 mg Diltiazem HCl (Cardizem Cd -) 120 mg PO BID [facility] Last Admin: 05/29/17 09:53 Dose: Not Given Enoxaparin Sodium (Lovenox -) 40 mg SQ DAILY [facility] Last Admin: 05/29/17 09:50 Dose: 40 mg Ferrous Sulfate (Feosol -) 325 mg PO TID JEANNA Last Admin: 05/29/17 06:29 Dose: 325 mg Piperacillin Sod/Tazobactam (Sod 3.375 gm/ Dextrose) 100 mls @ 200 mls/hr IVPB Q8H-IV JEANNA Last Admin: 05/29/17 02:18 Dose: 200 mls/hr Propofol (Diprivan -) 1,000,000 mcg in 100 mls @ 1.666 mls/hr IVPB TITR JEANNA; 5 MCG/KG/MIN PRN Reason: Protocol Last Admin: 05/28/17 12:06 Dose: 15 mcg/kg/min, 4.997 mls/hr Fentanyl 500 mcg/ Sodium (Chloride) 100 mls @ 10 mls/hr IVPB TITR JEANNA; 50 MCG/ HR PRN Reason: Protocol Last Admin: 05/29/17 06:29 Dose: 5 mls/hr Sodium Chloride (Normal Saline -) 1,000 mls @ 100 mls/hr IV ASDIR JEANNA Last Admin: 05/28/17 17:46 Dose: 100 mls/hr Vancomycin HCl 1,250 mg/ (Dextrose) 250 mls @ 166.667 mls/hr IVPB Q24H JEANNA PRN Reason: Protocol Last Admin: 05/29/17 09:50 Dose: 166.667 mls/hr Vasopressin 50 units/ Sodium (Chloride) 100 mls @ 24 mls/hr IVPB TITR JEANNA; 0.2 UNITS/MIN PRN Reason: Protocol Last Titration: 05/28/17 19:17 Dose: 0.05 units/min, 6 mls/hr Norepinephrine Bitartrate 8, (000 mcg/ Sodium Chloride) 500 mls @ 18.75 mls/hr IV TITR JEANNA; 5 MCG/MIN PRN Reason: Protocol Last Titration: 05/29/17 04:15 Dose: 10 mcg/min, 37.5 mls/hr Latanoprost (Xalatan 0.005% Eye Drops -) 1 drop OU HS [facility] Last Admin: 05/28/17 21:29 Dose: 1 drop Loratadine (Claritin -) 10 mg PO DAILY [facility] Last Admin: 05/29/17 09:50 Dose: 10 mg Methylprednisolone Sodium Succinate (Solu-Medrol -) 40 mg IVPUSH Q6H-IV [facility] Last Admin: 05/29/17 09:50 Dose: 40 mg Montelukast Sodium (Singulair -) 10 mg PO HS [facility] Last Admin: 05/28/17 21:26 Dose: 10 mg Multivitamins/Minerals/Vitamin C (Tab-A-Vit -) 1 tab PO DAILY [facility] Last Admin: 05/29/17 09:50 Dose: 1 tab Pantoprazole Sodium (Protonix Iv) 40 mg IVPUSH DAILY [facility] Last Admin: 05/29/17 09:49 Dose: 40 mg Tiotropium [place] (Spiriva -) 1 puff IH DAILY [facility] Last Admin: 05/29/17 09:53 Dose: Not Given - Objective Vital Signs: Vital Signs Temperature 99.9 F H 05/29/17 10:00 Pulse Rate 84 05/29/17 10:00 Respiratory Rate 14 05/29/17 10:00 Blood Pressure 137/74 05/29/17 10:00 O2 Sat by Pulse Oximetry (%) 98 05/29/17 09:13 Constitutional: Yes: No Distress HENT: Yes: Other (ET Tube present) Neck: Yes: Supple, Trachea Midline Cardiovascular: Yes: Regular Rate and Rhythm, S1, S2. No: Murmur Respiratory: Yes: Mechanically Ventilated Gastrointestinal: Yes: Soft. No: Distention Edema: No Neurological: Yes: Unresponsive Labs: CBC, BMP 05/29/17 06:10 05/29/17 06:10 INR, PTT INR 0.95 (0.82-1.09) 05/28/17 09:50 Assessment/Plan Current Active Problems Asystole (Acute)/ Cardiac arrest COPD exacerbation (Acute) Hemodynamic instability (Acute) Lactic acid acidosis (Acute) RSV (respiratory syncytial virus pneumonia) (Acute) Respiratory failure (Acute) Sepsis (Acute) Shock liver (Acute) -awaiting for signs mental status return following cardiac arrest -cont supportive care, steroids for COPD/ resp failure -patient now DNR if further cardiac arrest
--- NOTE | 2017-05-29 11:55 | PN ---
Progress Note, Physician History of Present Illness: continues to be intubated and sedated patients renal function is increasing - Current Medication List Current Medications: Active Medications Acetaminophen (Tylenol Suppository -) 325 mg [place] Q4H PRN PRN Reason: FEVER Acetaminophen (Ofirmev Injection -) 1,000 mg IVPB Q6H PRN PRN Reason: FEVER Albuterol Sulfate (Ventolin 0.083% Nebulizer Soln -) 1 amp NEB Q4H PRN PRN Reason: SHORT OF BREATH/WHEEZING Last Admin: 05/28/17 08:07 Dose: 1 amp Atorvastatin Calcium (Lipitor -) 10 mg PO HS [facility] Last Admin: 05/28/17 21:27 Dose: 10 mg Diltiazem HCl (Cardizem Cd -) 120 mg PO BID [facility] Last Admin: 05/29/17 09:53 Dose: Not Given Enoxaparin Sodium (Lovenox -) 40 mg SQ DAILY [facility] Last Admin: 05/29/17 09:50 Dose: 40 mg Ferrous Sulfate (Feosol -) 325 mg PO TID JEANNA Last Admin: 05/29/17 06:29 Dose: 325 mg Piperacillin Sod/Tazobactam (Sod 3.375 gm/ Dextrose) 100 mls @ 200 mls/hr IVPB Q8H-IV [facility]AN[facility] Last Admin: 05/29/17 02:18 Dose: 200 mls/hr Propofol (Diprivan -) 1,000,000 mcg in 100 mls @ 1.666 mls/hr IVPB TITR JEANNA; 5 MCG/KG/MIN PRN Reason: Protocol Last Admin: 05/28/17 12:06 Dose: 15 mcg/kg/min, 4.997 mls/hr Fentanyl 500 mcg/ Sodium (Chloride) 100 mls @ 10 mls/hr IVPB TITR JEANNA; 50 MCG/ HR PRN Reason: Protocol Last Admin: 05/29/17 06:29 Dose: 5 mls/hr Sodium Chloride (Normal Saline -) 1,000 mls @ 100 mls/hr IV ASDIR JEANNA Last Admin: 05/28/17 17:46 Dose: 100 mls/hr Vancomycin HCl 1,250 mg/ (Dextrose) 250 mls @ 166.667 mls/hr IVPB Q24H JEANNA PRN Reason: Protocol Last Admin: 05/29/17 09:50 Dose: 166.667 mls/hr Vasopressin 50 units/ Sodium (Chloride) 100 mls @ 24 mls/hr IVPB TITR JEANNA; 0.2 UNITS/MIN PRN Reason: Protocol Last Titration: 05/28/17 19:17 Dose: 0.05 units/min, 6 mls/hr Norepinephrine Bitartrate 8, (000 mcg/ Sodium Chloride) 500 mls @ 18.75 mls/hr IV TITR JEANNA; 5 MCG/MIN PRN Reason: Protocol Last Titration: 05/29/17 04:15 Dose: 10 mcg/min, 37.5 mls/hr Latanoprost (Xalatan 0.005% Eye Drops -) 1 drop OU HS [facility] Last Admin: 05/28/17 21:29 Dose: 1 drop Loratadine (Claritin -) 10 mg PO DAILY [facility] Last Admin: 05/29/17 09:50 Dose: 10 mg Methylprednisolone Sodium Succinate (Solu-Medrol -) 40 mg IVPUSH Q6H-IV [facility] Last Admin: 05/29/17 09:50 Dose: 40 mg Montelukast Sodium (Singulair -) 10 mg PO HS [facility] Last Admin: 05/28/17 21:26 Dose: 10 mg Multivitamins/Minerals/Vitamin C (Tab-A-Vit -) 1 tab PO DAILY [facility] Last Admin: 05/29/17 09:50 Dose: 1 tab Pantoprazole Sodium (Protonix Iv) 40 mg IVPUSH DAILY [facility] Last Admin: 05/29/17 09:49 Dose: 40 mg Tiotropium [place] (Spiriva -) 1 puff IH DAILY [facility] Last Admin: 05/29/17 09:53 Dose: Not Given - Objective Vital Signs: Vital Signs Temperature 99.9 F H 05/29/17 10:00 Pulse Rate 86 05/29/17 11:24 Respiratory Rate 14 05/29/17 11:43 Blood Pressure 147/78 05/29/17 11:24 O2 Sat by Pulse Oximetry (%) 98 05/29/17 09:13 Constitutional: Yes: Other Cardiovascular: Yes: S1, S2 Respiratory: Yes: Intubated, Mechanically Ventilated Gastrointestinal: Yes: Normal Bowel Sounds, Soft, Other (ng tube) Musculoskeletal: Yes: WNL Extremities: Yes: WNL Neurological: Yes: Other Psychiatric: Yes: Other Labs: CBC, BMP 05/29/17 06:10 01/27/18 06:10 INR, PTT INR 0.95 (0.82-1.09) 05/28/17 09:50 Assessment/Plan Problem List - Problems (1) Acute and chronic respiratory failure with hypercapnia Code(s): J96.22 - ACUTE AND CHRONIC RESPIRATORY FAILURE WITH HYPERCAPNIA (2) COPD exacerbation Code(s): J44.1 - CHRONIC OBSTRUCTIVE PULMONARY DISEASE W (ACUTE) EXACERBATION (3) CHF (congestive heart failure) Code(s): I50.9 - HEART FAILURE, UNSPECIFIED Qualifiers: Congestive heart failure type: diastolic Congestive heart failure chronicity: chronic Qualified Code(s): I50.32 - Chronic diastolic (congestive ) heart failure (4) Fracture, hip Code(s): S72.009A - FRACTURE OF UNSP PART OF NECK OF UNSP FEMUR, INIT Qualifiers: Encounter type: initial encounter Fracture type: closed Laterality: left Qualified Code(s): S72.002A - Fracture of unspecified part of neck of left femur, initial encounter for closed fracture (5) Hypertension Code(s): I10 - ESSENTIAL (PRIMARY) HYPERTENSION 6 pneumonia 7 leukocytosis 8 uti plan lcx of the urine noted plan continue zosyn donaldson top vanco continue supportive measures rest as per icu close monitoring cc time 40 min
[2017-05-29] MEDS ORDERED: PROPOFOL 1,000,000 MCG/100 ML VIAL ONE (12:24)
[2017-05-29] MEDS ORDERED: PIPERACILLIN/TAZOB 2.25 GM 2.25 GM in DEXTROSE 5%-WATER - 50 ML IVPB SCH (13:15)
[2017-05-29] MEDS ORDERED: fentaNYL CITRATE 250 MCG/5 ML VIAL ONE (15:27)
[2017-05-29] MEDS: PROPOFOL 1,000,000 MCG/100 ML VIAL IVPB SCH (15:57)
[2017-05-29] MEDS: SODIUM CHLORIDE 1,000 ML IV SCH (15:58)
[2017-05-29] MEDS: PIPERACILLIN/TAZOB 2.25 GM 2.25 GM in DEXTROSE 5%-WATER - 100 ML IVPB SCH ×2 (15:59→21:39)
[2017-05-29] MEDS: NOREPINEPHRINE BITARTRATE 8,000 MCG in SODIUM CHLORIDE 492 ML IV SCH (19:00)
[2017-05-29] MEDS: VASOPRESSIN 50 UNITS in SODIUM CHLORIDE 97.5 ML IVPB SCH (19:00)
[2017-05-29] MEDS ORDERED: VASOPRESSIN 20 UNITS/ML VIAL IV ONE (19:28)
[2017-05-29] MEDS: MONTELUKAST NA 10 MG TABLET PO SCH (21:40)
[2017-05-29] MEDS: ATORVASTATIN CA 10 MG TABLET (FP) PO SCH (21:40)
[2017-05-29] MEDS: LATANOPROST 0.005% OPHTH SOLN 2.5ML BOTTLE OU SCH (21:42)
[2017-05-30] MEDS: methylPREDNISolone NA SUCC 40 MG/1 ML VIAL IVPUSH SCH ×4 (02:13→21:38)
[2017-05-30] MEDS: PIPERACILLIN/TAZOB 2.25 GM 2.25 GM in DEXTROSE 5%-WATER - 100 ML IVPB SCH ×4 (02:13→21:31)
[2017-05-30] MEDS ORDERED: fentaNYL CITRATE 250 MCG/5 ML VIAL ONE (03:55)
[2017-05-30] MEDS: FERROUS SO4 325 MG TABLET (FP) PO SCH ×3 (05:08→21:40)
[2017-05-30] MEDS: SODIUM CHLORIDE 1,000 ML IV SCH ×2 (05:09→21:45)
[2017-05-30 06:40] LABS: HEMATOCRIT 25.4 % (32.4-45.2); LYMPH % 5.6 % (8-40); MCH 26.2 pg (25.7-33.7); MCHC 31.4 g/dl (32.0-36.0); MEAN CELL VOLUME 83.4 fl (80-96); MEAN PLT VOLUME 10.4 fl (7.5-11.1); MONO % 4.7 % (3.8-10.2); NEUT % 89.7 % (42.8-82.8); PLATELET COUNT 80 K/MM3 (134-434); RBC 3.04 M/mm3 (3.60-5.2); RDW 20.7 % (11.6-15.6); WHITE BLOOD COUNT 11.4 K/mm3 (4.0-10.0)
[2017-05-30 07:12] LABS: CHLORIDE 110 mmol/L (98-107); POTASSIUM 4.6 mmol/L (3.5-5.1); SODIUM 147 mmol/L (136-145)
[2017-05-30 07:27] LABS: ALBUMIN 1.8 g/dl (3.4-5.0); ALK PHOS 99 U/L (45-117); ANION GAP 9 (8-16); BILIRUBIN,TOTAL 0.7 mg/dL (0.2-1.0); BLOOD UREA NITROGEN 68 mg/dL (7-18); CO2 28 mmol/L (21-32); CREATININE 2.6 mg/dL (0.55-1.02); GLUCOSE,RANDOM 172 mg/dL (74-106); SGOT/AST 383 U/L (15-37); TOT PROT 4.2 g/dl (6.4-8.2)
[2017-05-30 07:47] LABS: CALCIUM 6.8 mg/dL (8.5-10.1); SGPT/ALT 974 U/L (12-78)
[2017-05-30] MEDS: PANTOPRAZOLE SODIUM 40 MG VIAL IVPUSH SCH (10:51)
[2017-05-30] MEDS: ENOXAPARIN NA (PORCINE) 40 MG/0.4 ML DISP.SYRIN SQ SCH (10:51)
[2017-05-30] MEDS: TIOTROPIUM BROMIDE 18 MCG/INH (DEVICE W/ 5 CAPSULES) IH SCH (10:52)
[2017-05-30] MEDS: MULTIVITAMINS (DAILY MVI) TABLET (FP) PO SCH (10:52)
[2017-05-30] MEDS: LORATADINE 10 MG TABLET PO SCH (10:52)
[2017-05-30] MEDS ORDERED: PT OWN MED DRAWER 7, Y5N ONE ×2 (10:59→17:28)
--- NOTE | 2017-05-30 11:15 | PN ---
Progress Note, Physician History of Present Illness: Remains unresponsive, intubated, on pressors, abx - Current Medication List Current Medications: Active Medications Acetaminophen (Tylenol Suppository -) 325 mg [place] Q4H PRN PRN Reason: FEVER Acetaminophen (Ofirmev Injection -) 1,000 mg IVPB Q6H PRN PRN Reason: FEVER Albuterol Sulfate (Ventolin 0.083% Nebulizer Soln -) 1 amp NEB Q4H PRN PRN Reason: SHORT OF BREATH/WHEEZING Last Admin: 05/28/17 08:07 Dose: 1 amp Atorvastatin Calcium (Lipitor -) 10 mg PO HS [facility] Last Admin: 05/29/17 21:40 Dose: 10 mg Diltiazem HCl (Cardizem Cd -) 120 mg PO BID [facility] Last Admin: 05/30/17 10:52 Dose: Not Given Enoxaparin Sodium (Lovenox -) 40 mg SQ DAILY [facility] Last Admin: 05/30/17 10:51 Dose: 40 mg Ferrous Sulfate (Feosol -) 325 mg PO TID [facility] Last Admin: 05/30/17 05:08 Dose: 325 mg Propofol (Diprivan -) 1,000,000 mcg in 100 mls @ 1.666 mls/hr IVPB TITR JEANNA; 5 MCG/KG/MIN PRN Reason: Protocol Last Admin: 05/29/17 15:57 Dose: 15 mcg/kg/min, 4.997 mls/hr Fentanyl 500 mcg/ Sodium (Chloride) 100 mls @ 10 mls/hr IVPB TITR JEANNA; 50 MCG/ HR PRN Reason: Protocol Last Admin: 05/29/17 15:58 Dose: 10 mls/hr Sodium Chloride (Normal Saline -) 1,000 mls @ 100 mls/hr IV ASDIR JEANNA Last Admin: 05/30/17 05:09 Dose: 100 mls/hr Vasopressin 50 units/ Sodium (Chloride) 100 mls @ 24 mls/hr IVPB TITR JEANNA; 0.2 UNITS/MIN PRN Reason: Protocol Last Titration: 05/30/17 02:25 Dose: 0.03 units/min, 4 mls/hr Norepinephrine Bitartrate 8, (000 mcg/ Sodium Chloride) 500 mls @ 18.75 mls/hr IV TITR JEANNA; 5 MCG/MIN PRN Reason: Protocol Last Titration: 05/30/17 05:09 Dose: 1 mcg/min, 3.75 mls/hr Piperacillin Sod/Tazobactam (Sod 2.25 gm/ Dextrose) 100 mls @ 100 mls/hr IVPB Q6H-IV [facility] Last Admin: 05/30/17 10:58 Dose: 100 mls/hr Latanoprost (Xalatan 0.005% Eye Drops -) 1 drop OU HS [facility] Last Admin: 05/29/17 21:42 Dose: 1 drop Loratadine (Claritin -) 10 mg PO DAILY [facility] Last Admin: 05/30/17 10:52 Dose: 10 mg Methylprednisolone Sodium Succinate (Solu-Medrol -) 40 mg IVPUSH Q6H-IV [facility] Last Admin: 05/30/17 10:51 Dose: 40 mg Montelukast Sodium (Singulair -) 10 mg PO HS [facility] Last Admin: 05/29/17 21:40 Dose: 10 mg Multivitamins/Minerals/Vitamin C (Tab-A-Vit -) 1 tab PO DAILY [facility] Last Admin: 05/30/17 10:52 Dose: 1 tab Pantoprazole Sodium (Protonix Iv) 40 mg IVPUSH DAILY [facility] Last Admin: 05/30/17 10:51 Dose: 40 mg Tiotropium [place] (Spiriva -) 1 puff IH DAILY [facility] Last Admin: 05/30/17 10:52 Dose: Not Given - Objective Vital Signs: Vital Signs Temperature 99.8 F H 05/30/17 10:00 Pulse Rate 63 05/30/17 10:00 Respiratory Rate 14 05/30/17 10:00 Blood Pressure 121/67 05/30/17 10:00 O2 Sat by Pulse Oximetry (%) 100 05/30/17 09:14 HENT: Yes: Other (ETTube) Cardiovascular: Yes: Regular Rate and Rhythm Respiratory: Yes: Mechanically Ventilated Gastrointestinal: Yes: Normal Bowel Sounds, Soft Edema: Yes Edema: LUE: Trace, RUE: Trace, LLE: Trace, RLE: Trace Neurological: Yes: Unresponsive Labs: CBC, BMP 05/30/17 06:15 05/30/17 06:15 INR, PTT INR 0.95 (0.82-1.09) 05/28/17 09:50 Assessment/Plan Current Active Problems Asystole (Acute)/ Cardiac arrest ARF COPD exacerbation (Acute) Hemodynamic instability (Acute) Lactic acid acidosis (Acute) RSV (respiratory syncytial virus pneumonia) (Acute) Respiratory failure (Acute) Sepsis (Acute) Shock liver (Acute) -continues on abx, pressors, vent support -if no neurologic recovery, then palliative care?
--- NOTE | 2017-05-30 15:48 | PN ---
Progress Note, Physician History of Present Illness: intubated sedated - Current Medication List Current Medications: Active Medications Acetaminophen (Tylenol Suppository -) 325 mg [place] Q4H PRN PRN Reason: FEVER Acetaminophen (Ofirmev Injection -) 1,000 mg IVPB Q6H PRN PRN Reason: FEVER Albuterol Sulfate (Ventolin 0.083% Nebulizer Soln -) 1 amp NEB Q4H PRN PRN Reason: SHORT OF BREATH/WHEEZING Last Admin: 05/28/17 08:07 Dose: 1 amp Atorvastatin Calcium (Lipitor -) 10 mg PO HS JEANNA Last Admin: 05/29/17 21:40 Dose: 10 mg Diltiazem HCl (Cardizem Cd -) 120 mg PO BID JEANNA Last Admin: 05/30/17 10:52 Dose: Not Given Enoxaparin Sodium (Lovenox -) 40 mg SQ DAILY JEANNA Last Admin: 05/30/17 10:51 Dose: 40 mg Ferrous Sulfate (Feosol -) 325 mg PO TID JEANNA Last Admin: 05/30/17 05:08 Dose: 325 mg Propofol (Diprivan -) 1,000,000 mcg in 100 mls @ 1.666 mls/hr IVPB TITR JEANNA; 5 MCG/KG/MIN PRN Reason: Protocol Last Admin: 05/29/17 15:57 Dose: 15 mcg/kg/min, 4.997 mls/hr Fentanyl 500 mcg/ Sodium (Chloride) 100 mls @ 10 mls/hr IVPB TITR JEANNA; 50 MCG/ HR PRN Reason: Protocol Last Admin: 05/29/17 15:58 Dose: 10 mls/hr Sodium Chloride (Normal Saline -) 1,000 mls @ 100 mls/hr IV ASDIR JEANNA Last Admin: 05/30/17 05:09 Dose: 100 mls/hr Vasopressin 50 units/ Sodium (Chloride) 100 mls @ 24 mls/hr IVPB TITR JEANNA; 0.2 UNITS/MIN PRN Reason: Protocol Last Titration: 05/30/17 02:25 Dose: 0.03 units/min, 4 mls/hr Norepinephrine Bitartrate 8, (000 mcg/ Sodium Chloride) 500 mls @ 18.75 mls/hr IV TITR JEANNA; 5 MCG/MIN PRN Reason: Protocol Last Titration: 05/30/17 05:09 Dose: 1 mcg/min, 3.75 mls/hr Piperacillin Sod/Tazobactam (Sod 2.25 gm/ Dextrose) 100 mls @ 100 mls/hr IVPB Q6H-IV [facility] Last Admin: 05/30/17 10:58 Dose: 100 mls/hr Latanoprost (Xalatan 0.005% Eye Drops -) 1 drop OU HS [facility] Last Admin: 05/29/17 21:42 Dose: 1 drop Loratadine (Claritin -) 10 mg PO DAILY [facility] Last Admin: 05/30/17 10:52 Dose: 10 mg Methylprednisolone Sodium Succinate (Solu-Medrol -) 40 mg IVPUSH Q6H-IV [facility] Last Admin: 05/30/17 10:51 Dose: 40 mg Montelukast Sodium (Singulair -) 10 mg PO HS [facility] Last Admin: 05/29/17 21:40 Dose: 10 mg Multivitamins/Minerals/Vitamin C (Tab-A-Vit -) 1 tab PO DAILY [facility] Last Admin: 05/30/17 10:52 Dose: 1 tab Pantoprazole Sodium (Protonix Iv) 40 mg IVPUSH DAILY [facility] Last Admin: 05/30/17 10:51 Dose: 40 mg Tiotropium [place] (Spiriva -) 1 puff IH DAILY [facility] Last Admin: 05/30/17 10:52 Dose: Not Given - Objective Vital Signs: Vital Signs Temperature 99.9 F H 05/30/17 14:00 Pulse Rate 66 05/30/17 14:00 Respiratory Rate 14 05/30/17 15:20 Blood Pressure 127/65 05/30/17 14:00 O2 Sat by Pulse Oximetry (%) 100 05/30/17 09:14 Constitutional: Yes: Other Cardiovascular: Yes: Regular Rate and Rhythm Respiratory: Yes: Intubated, Mechanically Ventilated Gastrointestinal: Yes: Normal Bowel Sounds, Soft Musculoskeletal: Yes: WNL Extremities: Yes: WNL Neurological: Yes: Other Labs: CBC, BMP 05/30/17 06:15 05/30/17 06:15 INR, PTT INR 0.95 (0.82-1.09) 05/28/17 09:50 - ....Imaging Chest X-ray: Report Reviewed, Image Reviewed Assessment/Plan Problem List - Problems (1) Acute and chronic respiratory failure with hypercapnia Code(s): J96.22 - ACUTE AND CHRONIC RESPIRATORY FAILURE WITH HYPERCAPNIA (2) COPD exacerbation Code(s): J44.1 - CHRONIC OBSTRUCTIVE PULMONARY DISEASE W (ACUTE) EXACERBATION (3) CHF (congestive heart failure) Code(s): I50.9 - HEART FAILURE, UNSPECIFIED Qualifiers: Congestive heart failure type: diastolic Congestive heart failure chronicity: chronic Qualified Code(s): I50.32 - Chronic diastolic (congestive ) heart failure (4) Fracture, hip Code(s): S72.009A - FRACTURE OF UNSP PART OF NECK OF UNSP FEMUR, INIT Qualifiers: Encounter type: initial encounter Fracture type: closed Laterality: left Qualified Code(s): S72.002A - Fracture of unspecified part of neck of left femur, initial encounter for closed fracture (5) Hypertension Code(s): I10 - ESSENTIAL (PRIMARY) HYPERTENSION 6 pneumonia 7 leukocytosis 8 uti plan lcx of the urine noted plan continue zosyn supportive measures nutrition monitor for any changes and mental respose rest as per icu patient continues to be critical cc time 40 min
--- NOTE | 2017-05-30 17:28 | PN ---
Progress Note (short form) - Note Progress Note: PULM/CCM Pt seen & examined in the ICU. Pt remains intubated, sedated, on pressors. Active Medications Acetaminophen (Tylenol Suppository -) 325 mg [place] Q4H PRN PRN Reason: FEVER Acetaminophen (Ofirmev Injection -) 1,000 mg IVPB Q6H PRN PRN Reason: FEVER Albuterol Sulfate (Ventolin 0.083% Nebulizer Soln -) 1 amp NEB Q4H PRN PRN Reason: SHORT OF BREATH/WHEEZING Last Admin: 05/28/17 08:07 Dose: 1 amp Atorvastatin Calcium (Lipitor -) 10 mg PO HS JEANNA Last Admin: 05/29/17 21:40 Dose: 10 mg Diltiazem HCl (Cardizem Cd -) 120 mg PO BID JEANNA Last Admin: 05/30/17 10:52 Dose: Not Given Enoxaparin Sodium (Lovenox -) 40 mg SQ DAILY JEANNA Last Admin: 05/30/17 10:51 Dose: 40 mg Ferrous Sulfate (Feosol -) 325 mg PO TID JEANNA Last Admin: 05/30/17 05:08 Dose: 325 mg Propofol (Diprivan -) 1,000,000 mcg in 100 mls @ 1.666 mls/hr IVPB TITR JEANNA; 5 MCG/KG/MIN PRN Reason: Protocol Last Admin: 05/29/17 15:57 Dose: 15 mcg/kg/min, 4.997 mls/hr Fentanyl 500 mcg/ Sodium (Chloride) 100 mls @ 10 mls/hr IVPB TITR JEANNA; 50 MCG/ HR PRN Reason: Protocol Last Admin: 05/29/17 15:58 Dose: 10 mls/hr Sodium Chloride (Normal Saline -) 1,000 mls @ 100 mls/hr IV ASDIR JEANNA Last Admin: 05/30/17 05:09 Dose: 100 mls/hr Vasopressin 50 units/ Sodium (Chloride) 100 mls @ 24 mls/hr IVPB TITR JEANNA; 0.2 UNITS/MIN PRN Reason: Protocol Last Titration: 05/30/17 02:25 Dose: 0.03 units/min, 4 mls/hr Norepinephrine Bitartrate 8, (000 mcg/ Sodium Chloride) 500 mls @ 18.75 mls/hr IV TITR JEANNA; 5 MCG/MIN PRN Reason: Protocol Last Titration: 05/30/17 05:09 Dose: 1 mcg/min, 3.75 mls/hr Piperacillin Sod/Tazobactam (Sod 2.25 gm/ Dextrose) 100 mls @ 100 mls/hr IVPB Q6H-IV [facility] Last Admin: 05/30/17 10:58 Dose: 100 mls/hr Latanoprost (Xalatan 0.005% Eye Drops -) 1 drop OU HS [facility] Last Admin: 05/29/17 21:42 Dose: 1 drop Loratadine (Claritin -) 10 mg PO DAILY [facility] Last Admin: 05/30/17 10:52 Dose: 10 mg Methylprednisolone Sodium Succinate (Solu-Medrol -) 40 mg IVPUSH Q6H-IV [facility] Last Admin: 05/30/17 10:51 Dose: 40 mg Montelukast Sodium (Singulair -) 10 mg PO HS [facility] Last Admin: 05/29/17 21:40 Dose: 10 mg Multivitamins/Minerals/Vitamin C (Tab-A-Vit -) 1 tab PO DAILY [facility] Last Admin: 05/30/17 10:52 Dose: 1 tab Pantoprazole Sodium (Protonix Iv) 40 mg IVPUSH DAILY [facility] Last Admin: 05/30/17 10:51 Dose: 40 mg Tiotropium [place] (Spiriva -) 1 puff IH DAILY [facility] Last Admin: 05/30/17 10:52 Dose: Not Given Vital Signs Period Temp Pulse Resp BP Sys/Ellis Pulse Ox Last 24 Hr 98.7 F-100.1 F 61-76 14-15 77-158/42-84 99-100 Intake & Output 05/27/17 05/28/17 05/29/17 05/30/17 23:59 23:59 23:59 23:59 Intake Total 1240 1780 4258.8 1596.0 Output Total 1150 5 200 250 Balance 90 1775 4058.8 1346.0 Weight 57.697 kg 55.52 kg 56.8 kg 60.3 kg GEN: Intubated, sedated, NAD PULM: Coarse L/S, no wheezing CV: nml S1 S2, RR, unable to appreciate any G/M/R Abd: + BS, soft, nontender Ext: + Pulses, WWPX4, no edema Neuro: sedated CBC, BMP 05/30/17 06:15 05/30/17 06:15 Microbiology 05/25/17 05:57 Blood - Peripheral Venous Blood Culture - Final NO GROWTH AFTER 5 DAYS INCUBATION 05/25/17 05:57 Blood - Peripheral Venous Blood Culture - Final NO GROWTH AFTER 5 DAYS INCUBATION 05/25/17 16:26 Urine - Urine - Catheterized Urine Culture - Final Enterococcus Faecalis 05/25/17 07:13 Nasopharyngeal Swab Influenza Types A,B Antigen (LASHAE) - Final 05/25/17 07:13 Nasopharyngeal Swab - Final RECENT STUDIES TO NOTE: CXR 05/30: Since the prior study of 05/29/2017 at 0749 hours, the endotracheal tube, right line and nasogastric tube persist. Again noted are the extensive right pulmonary and pleural changes with relative sparing of the left hemithorax. There is an old fracture deformity of the proximal left humerus. There are degenerative changes and sclerotic knob. Correlation recommended. Impression : no significant change since prior exam. ASSESS: This is a 76 y/o woman w/ CHF, severe COPD, and recent L femur fx ( surgery on 04/28, discharged on 05/07), readmitted on 05/25 w/ acute on chronic hypercapneic respiratory failure in the setting of RSV PNA, exacerb/o COPD +/- CHF requiring intubation. Extubated on 05/27 & convalescing on the floor, re- admitted to the ICU yesterday (05/28) s/p Cardiac Arrest on the floor, not cooled. Pt now w/ resp Fail and vasodilatory shock w/ unknown mental status. PLAN: -LPV -Nebs -Cont steroids -Spiriva -Wean FiO2 as tolerated -Wean sedation -Daily Sedation Holiday to eval mental status -Cont Zo -ID -IVFs for a CVP -Press for a MAP of 65 -Trend LA -Strict I's O's -Monitor UOP -Trend BUN/Cr -Trend BNP -TFs -Lovenox -PPI -DNR DGL, ACNP-[facility] ICU PULM/[facility] [id number] Critical Care Total Critical Care Time (in minutes): 38 Critical Care Statement: The care of this patient involved high complexity decision making to prevent further life threatening deterioration of the patient 's condition and/or to evaluate & treat vital organ system(s) failure or risk of failure.
[2017-05-30] MEDS: NOREPINEPHRINE BITARTRATE 8,000 MCG in SODIUM CHLORIDE 492 ML IV SCH (19:00)
[2017-05-30] MEDS: VASOPRESSIN 50 UNITS in SODIUM CHLORIDE 97.5 ML IVPB SCH (19:00)
[2017-05-30] MEDS: PROPOFOL 1,000,000 MCG/100 ML VIAL IVPB SCH (21:40)
[2017-05-30] MEDS: ATORVASTATIN CA 10 MG TABLET (FP) PO SCH (21:40)
[2017-05-30] MEDS: MONTELUKAST NA 10 MG TABLET PO SCH (21:41)
[2017-05-30] MEDS: LATANOPROST 0.005% OPHTH SOLN 2.5ML BOTTLE OU SCH (21:46)
[2017-05-31] MEDS ORDERED: fentaNYL CITRATE 250 MCG/5 ML VIAL ONE (02:11)
[2017-05-31] MEDS ORDERED: PT OWN MED DRAWER 7, Y5N ONE ×3 (02:13→20:51)
[2017-05-31] MEDS: FENTANYL INJECTION 500 MCG in SODIUM CHLORIDE 90 ML IVPB SCH (02:30)
[2017-05-31] MEDS: methylPREDNISolone NA SUCC 40 MG/1 ML VIAL IVPUSH SCH ×4 (02:31→21:01)
[2017-05-31] MEDS: PIPERACILLIN/TAZOB 2.25 GM 2.25 GM in DEXTROSE 5%-WATER - 100 ML IVPB SCH ×4 (02:31→21:01)
[2017-05-31 06:07] LABS: HEMATOCRIT 27.7 % (32.4-45.2); HEMOGLOBIN 8.6 GM/dL (10.7-15.3); LYMPH % 2.3 % (8-40); MCH 25.7 pg (25.7-33.7); MEAN CELL VOLUME 82.8 fl (80-96); MEAN PLT VOLUME 10.3 fl (7.5-11.1); MONO % 3.1 % (3.8-10.2); NEUT % 94.6 % (42.8-82.8); PLATELET COUNT 150 K/MM3 (134-434); RBC 3.34 M/mm3 (3.60-5.2); RDW 20.4 % (11.6-15.6)
[2017-05-31] MEDS: FERROUS SO4 325 MG TABLET (FP) PO SCH ×3 (06:30→21:02)
[2017-05-31 06:59] LABS: ALBUMIN 1.9 g/dl (3.4-5.0); ANION GAP 8 (8-16); BLOOD UREA NITROGEN 85 mg/dL (7-18); CHLORIDE 110 mmol/L (98-107); CO2 27 mmol/L (21-32); CREATININE 3.3 mg/dL (0.55-1.02); GLUCOSE,RANDOM 151 mg/dL (74-106); POTASSIUM 4.9 mmol/L (3.5-5.1); SGOT/AST 175 U/L (15-37); SODIUM 145 mmol/L (136-145)
[2017-05-31 07:01] LABS: ALK PHOS 96 U/L (45-117); BILIRUBIN,TOTAL 0.6 mg/dL (0.2-1.0); TOT PROT 4.6 g/dl (6.4-8.2)
[2017-05-31 07:03] LABS: SGPT/ALT 701 U/L (12-78)
[2017-05-31 07:24] LABS: CALCIUM 6.3 mg/dL (8.5-10.1)
--- NOTE | 2017-05-31 09:05 | PN ---
Physical Exam: SUBJECTIVE: Patient seen and examined The patient is a 76 year old female with a history of COPD, CHF, recent hip Fx and replacement 04/18 c/b COPD exacerbation who presented with acute respiratory failure readmitted to the ICU following a cardiac arrest event. The patient has remained minimally responsive off sedation. Patient remains intubated on pressors. Otherwise no acute events overnight. OBJECTIVE: Vital Signs Period Temp Pulse Resp BP Sys/Ellis Pulse Ox Last 24 Hr 98.1 F-99.9 F 58-74 14-14 113-157/61-86 100-100 GENERAL: The patient is intubated, in no acute distress. HEAD: Normal with no signs of trauma. EYES: sclera anicteric, conjunctiva clear. No ptosis. ENT: oropharynx clear without exudates, moist mucous membranes. NECK: Trachea midline, full range of motion, supple. LUNGS: Breath sounds equal, Course crackles auscultated on the right, no wheezes , no accessory muscle use. HEART: Regular rate and rhythm, S1, S2 without murmur, rub or gallop. ABDOMEN: Soft, nontender, nondistended, normoactive bowel sounds, no guarding, no rebound, no hepatosplenomegaly, no masses. EXTREMITIES: 2+ pulses, warm, well-perfused, NEUROLOGICAL: Normal speech, gait not observed. PSYCH: Normal mood, normal affect. SKIN: Warm, dry, normal turgor, no rashes or lesions noted Laboratory Results - last 24 hr 05/31/17 05/31/17 05:30 05:30 WBC 22.0 H D RBC 3.34 L Hgb 8.6 L Hct 27.7 L MCV 82.8 MCH 25.7 MCHC 31.0 L RDW 20.4 H Plt Count 150 D MPV 10.3 Neutrophils % 94.6 H Lymphocytes % 2.3 L D Monocytes % 3.1 L Eosinophils % 0.0 Basophils % 0.0 Sodium 145 Potassium 4.9 Chloride 110 H Carbon Dioxide 27 Anion Gap 8 BUN 85 H Creatinine 3.3 H Creat Clearance w eGFR 13.56 Random Glucose 151 H Calcium 6.3 L* Total Bilirubin 0.6 AST 175 H ALT 701 H Alkaline Phosphatase 96 Total Protein 4.6 L Albumin 1.9 L Active Medications Generic Name Dose Route Start Last Admin Trade Name Freq PRN Reason Stop Dose Admin Acetaminophen 325 mg 05/27/17 12:22 Tylenol Suppository - NM Q4H PRN FEVER Acetaminophen 1,000 mg 05/29/17 02:10 Ofirmev Injection - IVPB Q6H PRN FEVER Albuterol Sulfate 1 amp 05/27/17 12:22 05/28/17 08:07 Ventolin 0.083% Nebulizer Soln - NEB 1 amp Q4H PRN Administration SHORT OF BREATH/WHEEZING Atorvastatin Calcium 10 mg 05/27/17 22:00 05/30/17 21:40 Lipitor - PO 10 mg HS JEANNA Administration Diltiazem HCl 120 mg 05/27/17 22:00 05/30/17 21:44 Cardizem Cd - PO Not Given BID JEANNA Enoxaparin Sodium 40 mg 05/28/17 10:00 05/30/17 10:51 Lovenox - SQ 40 mg DAILY JEANNA Administration Ferrous Sulfate 325 mg 05/27/17 22:00 05/31/17 06:30 Feosol - PO 325 mg TID JEANNA Administration Propofol 1,000,000 mcg in 100 mls @ 1.666 mls/hr 05/28/17 11:30 05/30/17 21: 40 Diprivan - IVPB 15 mcg/kg/min TITR JEANNA 4.997 mls/hr Protocol Administration 5 MCG/KG/MIN Fentanyl 500 mcg/ Sodium 100 mls @ 10 mls/hr 05/28/17 12:30 05/31/17 02:30 Chloride IVPB 10 mls/hr TITR JEANNA Administration Protocol 50 MCG/HR Sodium Chloride 1,000 mls @ 100 mls/hr 05/28/17 13:00 05/30/17 21:45 Normal Saline - IV 100 mls/hr ASDIR JEANNA Administration Vasopressin 50 units/ Sodium 100 mls @ 24 mls/hr 05/28/17 17:15 05/30/17 19: 00 Chloride IVPB Not Given TITR JEANNA Protocol 0.2 UNITS/MIN Norepinephrine Bitartrate 8, 500 mls @ 18.75 mls/hr 05/28/17 18:00 05/30/17 19:00 000 mcg/ Sodium Chloride IV 5 mcg/min TITR JEANNA 18.75 mls/hr Protocol Administration 5 MCG/MIN Piperacillin Sod/Tazobactam 100 mls @ 100 mls/hr 05/29/17 13:33 05/31/17 02: 31 Sod 2.25 gm/ Dextrose IVPB 100 mls/hr Q6H-IV JEANNA Administration Latanoprost 1 drop 05/27/17 22:00 05/30/17 21:46 Xalatan 0.005% Eye Drops - OU 1 drop HS JEANNA Administration Loratadine 10 mg 05/28/17 10:00 05/30/17 10:52 Claritin - PO 10 mg DAILY JEANNA Administration Methylprednisolone Sodium Succinate 40 mg 05/27/17 15:00 05/31/17 02:31 Solu-Medrol - IVPUSH 40 mg Q6H-IV JEANNA Administration Montelukast Sodium 10 mg 05/27/17 22:00 05/30/17 21:41 Singulair - PO 10 mg HS JEANNA Administration Multivitamins/Minerals/Vitamin C 1 tab 05/28/17 10:00 05/30/17 10:52 Tab-A-Vit - PO 1 tab DAILY JEANNA Administration Pantoprazole Sodium 40 mg 05/28/17 10:00 05/30/17 10:51 Protonix Iv IVPUSH 40 mg DAILY JEANNA Administration Tiotropium [place] 1 puff 05/28/17 10:00 05/30/17 10:52 Spiriva - IH Not Given DAILY JEANNA ASSESSMENT/PLAN: The patient is a 76 year old female with a history of COPD, CHF, recent hip Fx and replacement 04/18 c/b COPD exacerbation who presented with acute respiratory failure readmitted to the ICU following a cardiac arrest event. NEURO Patient sedated due to intubation. Patient remains minimally responsive off sedation. -Continue propofol and fentanyl drips. -Daily sedation vacations to evaluate mental status. -Will continue to monitor. CV #Hypotension The patient had a 2 cardiac arrests with RSOC now hypotensive in the ICU requiring pressors. -Continue levophed drip and titrate as needed to maintain MAP >65. -Will continue to monitor. #Elevated troponin (Improved) -Now downtrending. RESP #Acute respiratory failure Patient now re-intubated following a cardiac arrest earlier today. Chest plain film demonstrates right sided rib fractures likely due to chest compressions. It is likely the patient aspirated leading to a respiratory arrest that led to the cardiac arrest. -Will cover the patient with zosyn. -Continue solu-medrol. -Will maintain the patient on the ventilator. -Will continue to monitor. GI -NG tube with feeds. Renal No issues currently. -Will continue to monitor bun/creatinine. ID #Pneumonia vs. Influenza vs. RSV -Continue zosyn. -Re-culture if patient spikes a temp. -Follow recs from ID [facility] No issues currently FEN/GI -Replete electrolytes PRN, will monitor -IV fluids PPX -Lovenox 40 sq daily -Protonix 40 IV daily for GI ppx DISPO: Continue ICU level of care. Visit type - Emergency Visit Emergency Visit: No - New Patient This patient is new to me today: No - Critical Care Critical Care patient: Yes Total Critical Care Time (in minutes): 35 Critical Care Statement: The care of this patient involved high complexity decision making to prevent further life threatening deterioration of the patient 's condition and/or to evaluate & treat vital organ system(s) failure or risk of failure.
[2017-05-31] MEDS: ENOXAPARIN NA (PORCINE) 40 MG/0.4 ML DISP.SYRIN SQ SCH (09:33)
[2017-05-31] MEDS: PANTOPRAZOLE SODIUM 40 MG VIAL IVPUSH SCH (09:34)
[2017-05-31] MEDS: TIOTROPIUM BROMIDE 18 MCG/INH (DEVICE W/ 5 CAPSULES) IH SCH (09:34)
[2017-05-31] MEDS: MULTIVITAMINS (DAILY MVI) TABLET (FP) PO SCH (09:34)
[2017-05-31] MEDS: LORATADINE 10 MG TABLET PO SCH (09:34)
--- NOTE | 2017-05-31 10:30 | PN ---
Progress Note, Physician Chief Complaint: Unable to obtain, patient obtunded - Current Medication List Current Medications: Active Medications Acetaminophen (Tylenol Suppository -) 325 mg [place] Q4H PRN PRN Reason: FEVER Acetaminophen (Ofirmev Injection -) 1,000 mg IVPB Q6H PRN PRN Reason: FEVER Albuterol Sulfate (Ventolin 0.083% Nebulizer Soln -) 1 amp NEB Q4H PRN PRN Reason: SHORT OF BREATH/WHEEZING Last Admin: 05/28/17 08:07 Dose: 1 amp Atorvastatin Calcium (Lipitor -) 10 mg PO HS JEANNA Last Admin: 05/30/17 21:40 Dose: 10 mg Ferrous Sulfate (Feosol -) 325 mg PO TID JEANNA Last Admin: 05/31/17 06:30 Dose: 325 mg Heparin Sodium (Porcine) (Heparin -) 5,000 unit SQ TID JEANNA Propofol (Diprivan -) 1,000,000 mcg in 100 mls @ 1.666 mls/hr IVPB TITR JEANNA; 5 MCG/KG/MIN PRN Reason: Protocol Last Admin: 05/30/17 21:40 Dose: 15 mcg/kg/min, 4.997 mls/hr Fentanyl 500 mcg/ Sodium (Chloride) 100 mls @ 10 mls/hr IVPB TITR JEANNA; 50 MCG/ HR PRN Reason: Protocol Last Admin: 05/31/17 02:30 Dose: 10 mls/hr Sodium Chloride (Normal Saline -) 1,000 mls @ 100 mls/hr IV ASDIR JEANNA Last Admin: 05/30/17 21:45 Dose: 100 mls/hr Vasopressin 50 units/ Sodium (Chloride) 100 mls @ 24 mls/hr IVPB TITR JEANNA; 0.2 UNITS/MIN PRN Reason: Protocol Last Admin: 05/30/17 19:00 Dose: Not Given Norepinephrine Bitartrate 8, (000 mcg/ Sodium Chloride) 500 mls @ 18.75 mls/hr IV TITR JEANNA; 5 MCG/MIN PRN Reason: Protocol Last Titration: 05/31/17 09:17 Dose: 2 mcg/min, 7.5 mls/hr Piperacillin Sod/Tazobactam (Sod 2.25 gm/ Dextrose) 100 mls @ 100 mls/hr IVPB Q6H-IV [facility] Last Admin: 05/31/17 09:33 Dose: 100 mls/hr Latanoprost (Xalatan 0.005% Eye Drops -) 1 drop OU HS [facility] Last Admin: 05/30/17 21:46 Dose: 1 drop Loratadine (Claritin -) 10 mg PO DAILY [facility] Last Admin: 05/31/17 09:34 Dose: 10 mg Methylprednisolone Sodium Succinate (Solu-Medrol -) 40 mg IVPUSH Q6H-IV [facility] Last Admin: 05/31/17 09:34 Dose: 40 mg Montelukast Sodium (Singulair -) 10 mg PO HS [facility] Last Admin: 05/30/17 21:41 Dose: 10 mg Multivitamins/Minerals/Vitamin C (Tab-A-Vit -) 1 tab PO DAILY [facility] Last Admin: 05/31/17 09:34 Dose: 1 tab Pantoprazole Sodium (Protonix Iv) 40 mg IVPUSH DAILY [facility] Last Admin: 05/31/17 09:34 Dose: 40 mg Tiotropium [place] (Spiriva -) 1 puff IH DAILY [facility] Last Admin: 05/31/17 09:34 Dose: Not Given - Objective Vital Signs: Vital Signs Temperature 36.7 C 05/31/17 06:00 Pulse Rate 75 05/31/17 09:40 Respiratory Rate 14 05/31/17 08:50 Blood Pressure 148/82 05/31/17 09:17 O2 Sat by Pulse Oximetry (%) 99 05/31/17 09:40 Constitutional: Yes: Other (obtunded) Eyes: Yes: Cataracts, Other (corneal response) Cardiovascular: Yes: Regular Rate and Rhythm. No: Gallop, Murmur, Rub Respiratory: Yes: Regular, CTA Bilaterally, Intubated, Mechanically Ventilated. No: Rales, Rhonchi, Wheezes Gastrointestinal: Yes: Normal Bowel Sounds, Soft. No: Distention, Tenderness Extremities: Yes: WNL Edema: Yes Edema: LUE: 1+, RUE: 1+, LLE: 1+, RLE: 1+ Labs: CBC, BMP 05/31/17 05:30 05/31/17 05:30 INR, PTT INR 0.95 (0.82-1.09) 05/28/17 09:50 Problem List - Problems (1) Asystole Code(s): I46.9 - CARDIAC ARREST, CAUSE UNSPECIFIED (2) Lactic acid acidosis Code(s): E87.2 - ACIDOSIS (3) Hemodynamic instability Code(s): R09.89 - OTH SYMPTOMS AND SIGNS INVOLVING THE CIRC AND RESP SYSTEMS (4) Shock liver Code(s): K72.00 - ACUTE AND SUBACUTE HEPATIC FAILURE WITHOUT COMA (5) RSV (respiratory syncytial virus pneumonia) Code(s): J12.1 - RESPIRATORY SYNCYTIAL VIRUS PNEUMONIA (6) Acute and chronic respiratory failure with hypercapnia Code(s): J96.22 - ACUTE AND CHRONIC RESPIRATORY FAILURE WITH HYPERCAPNIA (7) COPD exacerbation Code(s): J44.1 - CHRONIC OBSTRUCTIVE PULMONARY DISEASE W (ACUTE) EXACERBATION (8) CHF (congestive heart failure) Code(s): I50.9 - HEART FAILURE, UNSPECIFIED Qualifiers: Congestive heart failure type: diastolic Congestive heart failure chronicity: chronic Qualified Code(s): I50.32 - Chronic diastolic (congestive ) heart failure (9) Fracture, hip Code(s): S72.009A - FRACTURE OF UNSP PART OF NECK OF UNSP FEMUR, INIT Qualifiers: Encounter type: initial encounter Fracture type: closed Laterality: left Qualified Code(s): S72.002A - Fracture of unspecified part of neck of left femur, initial encounter for closed fracture (10) Hypertension Code(s): I10 - ESSENTIAL (PRIMARY) HYPERTENSION Assessment/Plan (1) Asystolic cardiac arrest -successfully resuscitated -currently DNR -patient off of propofol for 4 hours prior to seeing with minimal neurologic improvement (+corneal response but minimal to pain, pupil response inaccurate secondary to cataracts) -case d/w pulmonary, holding propofol to see if recovers -son made aware -if no improvement in next 24 hours will consider palliative wean (2) Acute and chronic hypoxic respiratory failure Assessment/Plan: -recurrent and cause of asystole -intubated and mechanically ventilated -pulmonary following and case discussed Code(s): J96.22 - ACUTE AND CHRONIC RESPIRATORY FAILURE WITH HYPERCAPNIA (3) COPD exacerbation Assessment/Plan: -continue steroids Code(s): J44.1 - CHRONIC OBSTRUCTIVE PULMONARY DISEASE W (ACUTE) EXACERBATION (3) CHF (congestive heart failure) Assessment/Plan: -currently hypotensive requiring pressors -hold torsemide Code(s): I50.9 - HEART FAILURE, UNSPECIFIED Qualifiers: Congestive heart failure type: diastolic Congestive heart failure chronicity: chronic Qualified Code(s): I50.32 - Chronic diastolic (congestive ) heart failure (4) Fracture, hip Assessment/Plan: -reason for being at SNF -continue lovenox for DVT PPx Code(s): S72.009A - FRACTURE OF UNSP PART OF NECK OF UNSP FEMUR, INIT Qualifiers: Encounter type: initial encounter Fracture type: closed Laterality: left Qualified Code(s): S72.002A - Fracture of unspecified part of neck of left femur, initial encounter for closed fracture (5) Hypertension Assessment/Plan: -hold diltiazem and torsemide Code(s): I10 - ESSENTIAL (PRIMARY) HYPERTENSION (6) Hypocalcemia -replaced as needed (7) Shock Liver -improving (8) Hemodynamic instability -currently on pressors (9) Lactic acidosis -resolved (10) GORDO -suspect secondary to code/ATN -case d/w Dr Szymanski -checking CVP, may need lasix -monitor for improvement (11) RSV pneumonia -case d/w ID -RSV found in the outpatient setting -chest x-ray reviewed and unchanged -continue zosyn as may have a bacterial infection on RSV Case d/w son as well 33 minutes spent in critical care time with this patient
[2017-05-31 11:24] LABS: URINE APPEARANCE CLEAR; URINE BILIRUBIN NEGATIVE (NEGATIVE); URINE BLOOD 2+ (NEGATIVE); URINE COLOR LTYELLOW; URINE GLUCOSE (UA) 1+ (NEGATIVE); URINE KETONE NEGATIVE (NEGATIVE); URINE LEUK ESTERASE NEGATIVE (NEGATIVE); URINE NITRITE NEGATIVE (NEGATIVE); URINE PROTEIN NEGATIVE (NEGATIVE); URINE UROBILINOGEN NEGATIVE mg/dL (0.2-1.0)
[2017-05-31 11:32] LABS: EPI CELLS RARE /HPF (FEW)
[2017-05-31 11:33] LABS: URINE CREATININE 25.8 mg/dL (20-320)
--- NOTE | 2017-05-31 12:50 | PN ---
Teaching Attending Note Name of Resident: Rigoberto Eddy ATTENDING PHYSICIAN STATEMENT I saw and evaluated the patient. I reviewed the resident's note and discussed the case with the resident. I agree with the resident's findings and plan as documented. SUBJECTIVE: Pt seen and examined in the ICU. Remains intubated, sedated on levophed gtt. OBJECTIVE: Last Vital Signs Temp Pulse Resp BP Pulse Ox 98 F 76 14 140/76 99 05/31/17 10:00 05/31/17 12:00 05/31/17 12:00 05/31/17 12:00 05/31/17 09:40 Intake & Output 05/28/17 05/29/17 05/30/17 05/31/17 23:59 23:59 23:59 23:59 Intake Total 1780 4258.8 2162.0 1060 Output Total 5 200 450 200 Balance 1775 4058.8 1712.0 860 Weight 55.52 kg 56.8 kg 60.3 kg 60.2 kg Gen: intubated, sedated, tachypneic Heart: RRR Lung: scattered rhonchi Abd: soft, nontender Ext: + edema CBC, BMP 05/31/17 05:30 05/31/17 05:30 Active Medications Acetaminophen (Tylenol Suppository -) 325 mg [place] Q4H PRN PRN Reason: FEVER Acetaminophen (Ofirmev Injection -) 1,000 mg IVPB Q6H PRN PRN Reason: FEVER Albuterol Sulfate (Ventolin 0.083% Nebulizer Soln -) 1 amp NEB Q4H PRN PRN Reason: SHORT OF BREATH/WHEEZING Last Admin: 05/28/17 08:07 Dose: 1 amp Atorvastatin Calcium (Lipitor -) 10 mg PO HS JEANNA Last Admin: 05/30/17 21:40 Dose: 10 mg Ferrous Sulfate (Feosol -) 325 mg PO TID JEANNA Last Admin: 05/31/17 06:30 Dose: 325 mg Heparin Sodium (Porcine) (Heparin -) 5,000 unit SQ TID JEANNA Propofol (Diprivan -) 1,000,000 mcg in 100 mls @ 1.666 mls/hr IVPB TITR JEANNA; 5 MCG/KG/MIN PRN Reason: Protocol Last Admin: 05/30/17 21:40 Dose: 15 mcg/kg/min, 4.997 mls/hr Fentanyl 500 mcg/ Sodium (Chloride) 100 mls @ 10 mls/hr IVPB TITR JEANNA; 50 MCG/ HR PRN Reason: Protocol Last Admin: 05/31/17 02:30 Dose: 10 mls/hr Sodium Chloride (Normal Saline -) 1,000 mls @ 100 mls/hr IV ASDIR JEANNA Last Admin: 05/30/17 21:45 Dose: 100 mls/hr Vasopressin 50 units/ Sodium (Chloride) 100 mls @ 24 mls/hr IVPB TITR JEANNA; 0.2 UNITS/MIN PRN Reason: Protocol Last Admin: 05/30/17 19:00 Dose: Not Given Norepinephrine Bitartrate 8, (000 mcg/ Sodium Chloride) 500 mls @ 18.75 mls/hr IV TITR JEANNA; 5 MCG/MIN PRN Reason: Protocol Last Titration: 05/31/17 09:17 Dose: 2 mcg/min, 7.5 mls/hr Piperacillin Sod/Tazobactam (Sod 2.25 gm/ Dextrose) 100 mls @ 100 mls/hr IVPB Q6H-IV JEANNA Last Admin: 05/31/17 09:33 Dose: 100 mls/hr Latanoprost (Xalatan 0.005% Eye Drops -) 1 drop OU HS [facility] Last Admin: 05/30/17 21:46 Dose: 1 drop Loratadine (Claritin -) 10 mg PO DAILY [facility] Last Admin: 05/31/17 09:34 Dose: 10 mg Methylprednisolone Sodium Succinate (Solu-Medrol -) 40 mg IVPUSH Q6H-IV [facility] Last Admin: 05/31/17 09:34 Dose: 40 mg Montelukast Sodium (Singulair -) 10 mg PO HS [facility] Last Admin: 05/30/17 21:41 Dose: 10 mg Multivitamins/Minerals/Vitamin C (Tab-A-Vit -) 1 tab PO DAILY [facility] Last Admin: 05/31/17 09:34 Dose: 1 tab Pantoprazole Sodium (Protonix Iv) 40 mg IVPUSH DAILY [facility] Last Admin: 05/31/17 09:34 Dose: 40 mg Tiotropium [place] (Spiriva -) 1 puff IH DAILY [facility] Last Admin: 05/31/17 09:34 Dose: Not Given ASSESSMENT AND PLAN: Acute Hypoxic and Hypercapneic Respiratory Failure Pneumonia UTI Septic Shock Acute Kidney Injury +Troponins likely Demand Ischemia Acute COPD Exacerbation LV Diastolic Dysfunction Pulmonary HTN - continue antibiotics - f/u cultures - continue medrol at current dose - inhaled bronchodilators standing and PRN - IVF to keep CVP 8-12 - monitor urine output, creatinine - titrate pressors to maintain MAP >65 - lighten sedation to assess mental status - spontaneous breathing trials as tolerated when mental status improved - enteral feeds - DVT/GI prophylaxis - continue ICU monitoring critical care time spent in reviewing chart, evaluating patient and formulating plan 35 min
--- NOTE | 2017-05-31 13:06 | PN ---
Progress Note, Physician History of Present Illness: continues to be intubated no response when sedation was turned off - Current Medication List Current Medications: Active Medications Acetaminophen (Tylenol Suppository -) 325 mg [place] Q4H PRN PRN Reason: FEVER Acetaminophen (Ofirmev Injection -) 1,000 mg IVPB Q6H PRN PRN Reason: FEVER Albuterol Sulfate (Ventolin 0.083% Nebulizer Soln -) 1 amp NEB Q4H PRN PRN Reason: SHORT OF BREATH/WHEEZING Last Admin: 05/28/17 08:07 Dose: 1 amp Atorvastatin Calcium (Lipitor -) 10 mg PO HS JEANNA Last Admin: 05/30/17 21:40 Dose: 10 mg Ferrous Sulfate (Feosol -) 325 mg PO TID JEANNA Last Admin: 05/31/17 06:30 Dose: 325 mg Heparin Sodium (Porcine) (Heparin -) 5,000 unit SQ TID JEANNA Propofol (Diprivan -) 1,000,000 mcg in 100 mls @ 1.666 mls/hr IVPB TITR JEANNA; 5 MCG/KG/MIN PRN Reason: Protocol Last Admin: 05/30/17 21:40 Dose: 15 mcg/kg/min, 4.997 mls/hr Fentanyl 500 mcg/ Sodium (Chloride) 100 mls @ 10 mls/hr IVPB TITR JEANNA; 50 MCG/ HR PRN Reason: Protocol Last Admin: 05/31/17 02:30 Dose: 10 mls/hr Sodium Chloride (Normal Saline -) 1,000 mls @ 100 mls/hr IV ASDIR JEANNA Last Admin: 05/30/17 21:45 Dose: 100 mls/hr Vasopressin 50 units/ Sodium (Chloride) 100 mls @ 24 mls/hr IVPB TITR JEANNA; 0.2 UNITS/MIN PRN Reason: Protocol Last Admin: 05/30/17 19:00 Dose: Not Given Norepinephrine Bitartrate 8, (000 mcg/ Sodium Chloride) 500 mls @ 18.75 mls/hr IV TITR JEANNA; 5 MCG/MIN PRN Reason: Protocol Last Titration: 05/31/17 09:17 Dose: 2 mcg/min, 7.5 mls/hr Piperacillin Sod/Tazobactam (Sod 2.25 gm/ Dextrose) 100 mls @ 100 mls/hr IVPB Q6H-IV JEANNA Last Admin: 05/31/17 09:33 Dose: 100 mls/hr Latanoprost (Xalatan 0.005% Eye Drops -) 1 drop OU HS [facility] Last Admin: 05/30/17 21:46 Dose: 1 drop Loratadine (Claritin -) 10 mg PO DAILY [facility] Last Admin: 05/31/17 09:34 Dose: 10 mg Methylprednisolone Sodium Succinate (Solu-Medrol -) 40 mg IVPUSH Q6H-IV [facility] Last Admin: 05/31/17 09:34 Dose: 40 mg Montelukast Sodium (Singulair -) 10 mg PO HS [facility] Last Admin: 05/30/17 21:41 Dose: 10 mg Multivitamins/Minerals/Vitamin C (Tab-A-Vit -) 1 tab PO DAILY [facility] Last Admin: 05/31/17 09:34 Dose: 1 tab Pantoprazole Sodium (Protonix Iv) 40 mg IVPUSH DAILY [facility] Last Admin: 05/31/17 09:34 Dose: 40 mg Tiotropium [place] (Spiriva -) 1 puff IH DAILY [facility] Last Admin: 05/31/17 09:34 Dose: Not Given - Objective Vital Signs: Vital Signs Temperature 98 F 05/31/17 10:00 Pulse Rate 76 05/31/17 12:00 Respiratory Rate 14 05/31/17 12:00 Blood Pressure 140/76 05/31/17 12:00 O2 Sat by Pulse Oximetry (%) 99 05/31/17 09:40 Constitutional: Yes: Other Cardiovascular: Yes: Regular Rate and Rhythm Respiratory: Yes: Intubated, Mechanically Ventilated Gastrointestinal: Yes: Normal Bowel Sounds, Soft Genitourinary: Yes: [place] Present Musculoskeletal: Yes: WNL Extremities: Yes: WNL Labs: CBC, BMP 05/31/17 05:30 05/31/17 05:30 INR, PTT INR 0.95 (0.82-1.09) 05/28/17 09:50 Assessment/Plan Problem List - Problems (1) Acute and chronic respiratory failure with hypercapnia Code(s): J96.22 - ACUTE AND CHRONIC RESPIRATORY FAILURE WITH HYPERCAPNIA (2) COPD exacerbation Code(s): J44.1 - CHRONIC OBSTRUCTIVE PULMONARY DISEASE W (ACUTE) EXACERBATION (3) CHF (congestive heart failure) Code(s): I50.9 - HEART FAILURE, UNSPECIFIED Qualifiers: Congestive heart failure type: diastolic Congestive heart failure chronicity: chronic Qualified Code(s): I50.32 - Chronic diastolic (congestive ) heart failure (4) Fracture, hip Code(s): S72.009A - FRACTURE OF UNSP PART OF NECK OF UNSP FEMUR, INIT Qualifiers: Encounter type: initial encounter Fracture type: closed Laterality: left Qualified Code(s): S72.002A - Fracture of unspecified part of neck of left femur, initial encounter for closed fracture (5) Hypertension Code(s): I10 - ESSENTIAL (PRIMARY) HYPERTENSION 6 pneumonia 7 leukocytosis 8 uti plan lcx of the urine noted plan continue abx supportive measures nutrition monitor for any changes and mental respose rest as per icu patient continues to be critical cc time 40 min
--- NOTE | 2017-05-31 13:23 | PN ---
Teaching Attending Note Name of Resident: Mark Farrar (Nephrology) ATTENDING PHYSICIAN STATEMENT I saw and evaluated the patient. I reviewed the resident's note and discussed the case with the resident. I agree with the resident's findings and plan as documented. SUBJECTIVE: This is a 76 year old woman with PMhx of COPD who presented with hypercarbic respiratory failure requring intubation complicated by cardiac arrest now with GORDO with Cr of 3.3. Pt with 2 arrests on 05/28. Cr trend as follows: Laboratory Tests 05/28/17 05/29/17 05/30/17 19:35 06:10 06:15 Creatinine 1.2 H 1.5 H 2.6 H 05/31/17 05:30 Creatinine 3.3 H Pt is currently intubated. Has figueredo in place with yellow urine. + Contrast exposure on the . No NSIAD exposure. On Abx. On Levophed. On NS. Home Medications Medication Instructions Recorded Fluticasone/Salmeterol [Advair 1 each IH BID 10/15/11 250-50 Diskus] Tiotropium [place] [Spiriva] 18 mcg IH DAILY 10/15/11 Montelukast Na [Singulair -] 10 mg PO HS #0 tablet 10/20/11 Multivitamins [Multivit ([facility] 1 udtab PO DAILY #0 tab 10/20/11 Formulary)] Ferrous Sulfate [Feosol] 325 mg PO TID 01/18/12 Calcium Carbonate/Vitamin D3 1 each PO DAILY 11/05/12 [Calcium 600-Vit D3 200 Tablet] Docosahexanoic Acid/Epa [Fish Oil 1 each PO DAILY 11/05/12 Softgel] Potassium Chloride [K-Dur] 20 meq PO DAILY #0 tab.er.prt 11/05/12 Alendronate Sodium [Fosamax] 35 mg PO KELLER 09/01/15 Atorvastatin Ca [Lipitor] 10 mg PO HS 09/01/15 Latanoprost 0.005% Eye Drops 1 drop OU HS 09/01/15 [Xalatan 0.005% Eye Drops -] Diltiazem Cd [Cardizem Cd -] 120 mg PO BID cap.cd.24h 05/07/17 Enoxaparin [Lovenox -] 40 mg SQ DAILY disp.syrin 05/07/17 Loratadine [Claritin -] 10 mg PO DAILY tablet 05/07/17 Mineral Oil/Petrolat,Wht/Water 1 applic TP DAILY jar 05/07/17 [Eucerin (Small Jar) -] Polyethylene Glycol 3350 [Miralax 17 gm PO BID bottle 05/07/17 119 gm Btl -] Prednisone [Deltasone -] 10 mg PO DAILY tablet 05/07/17 Torsemide [Demadex -] 60 mg PO DAILY tablet 05/07/17 Acetaminophen [Tylenol .Regular 650 mg PO Q6H PRN 05/25/17 Strength -] Albuterol 2.5/Ipratropium 0.5 1 amp IH QSHIFT 05/25/17 [Duoneb -] Ascorbic Acid [Vitamin C -] 500 mg PO TID 05/25/17 Chlorpheniramine/Dextromethorp 15 ml PO Q6H 05/25/17 [Robitussin Long-Acting Liq] Docusate Sodium [Colace -] 300 mg PO HS 05/25/17 Menthol/Zinc Oxide [Calmoseptine 71 gm TP QSHIFT 05/25/17 Ointment] Nystatin Oral Suspension - 500,000 units PO QID 05/25/17 [Nystatin Oral Susp 344045 Units/5 ML -] Omeprazole Magnesium [Prilosec Otc] 20 mg PO DAILY 05/25/17 Sodium Chloride Nasal [place] [[place] 2 spray NS QSHI 05/25/17 [place] Nasal [place]] OBJECTIVE: Vital Signs Temperature 98 F 05/31/17 10:00 Pulse Rate 76 05/31/17 12:00 Respiratory Rate 14 05/31/17 12:00 Blood Pressure 140/76 05/31/17 12:00 O2 Sat by Pulse Oximetry (%) 99 05/31/17 09:40 Intake & Output 05/28/17 05/29/17 05/30/17 05/31/17 23:59 23:59 23:59 23:59 Intake Total 1780 4258.8 2162.0 1060 Output Total 5 200 450 200 Balance 1775 4058.8 1712.0 860 Weight 55.52 kg 56.8 kg 60.3 kg 60.2 kg NAD on Vent via ET tube no JVD, Neck supple RRR, No M/R Dec BS lung bases soft NT/ND + sacral edema, + UE edema no clubbing or cyanosis CBC, BMP 05/31/17 05:30 05/31/17 05:30 Current Medications Acetaminophen (Tylenol Suppository -) 325 mg [place] Q4H PRN PRN Reason: FEVER Acetaminophen (Ofirmev Injection -) 1,000 mg IVPB Q6H PRN PRN Reason: FEVER Albuterol Sulfate (Ventolin 0.083% Nebulizer Soln -) 1 amp NEB Q4H PRN PRN Reason: SHORT OF BREATH/WHEEZING Last Admin: 05/28/17 08:07 Dose: 1 amp Atorvastatin Calcium (Lipitor -) 10 mg PO HS JEANNA Last Admin: 05/30/17 21:40 Dose: 10 mg Ferrous Sulfate (Feosol -) 325 mg PO TID JEANNA Last Admin: 05/31/17 06:30 Dose: 325 mg Heparin Sodium (Porcine) (Heparin -) 5,000 unit SQ TID JEANNA Propofol (Diprivan -) 1,000,000 mcg in 100 mls @ 1.666 mls/hr IVPB TITR JEANNA; 5 MCG/KG/MIN PRN Reason: Protocol Last Admin: 05/30/17 21:40 Dose: 15 mcg/kg/min, 4.997 mls/hr Fentanyl 500 mcg/ Sodium (Chloride) 100 mls @ 10 mls/hr IVPB TITR JEANNA; 50 MCG/ HR PRN Reason: Protocol Last Admin: 05/31/17 02:30 Dose: 10 mls/hr Sodium Chloride (Normal Saline -) 1,000 mls @ 100 mls/hr IV ASDIR JEANNA Last Admin: 05/30/17 21:45 Dose: 100 mls/hr Vasopressin 50 units/ Sodium (Chloride) 100 mls @ 24 mls/hr IVPB TITR JEANNA; 0.2 UNITS/MIN PRN Reason: Protocol Last Admin: 05/30/17 19:00 Dose: Not Given Norepinephrine Bitartrate 8, (000 mcg/ Sodium Chloride) 500 mls @ 18.75 mls/hr IV TITR JEANNA; 5 MCG/MIN PRN Reason: Protocol Last Titration: 05/31/17 09:17 Dose: 2 mcg/min, 7.5 mls/hr Piperacillin Sod/Tazobactam (Sod 2.25 gm/ Dextrose) 100 mls @ 100 mls/hr IVPB Q6H-IV JEANNA Last Admin: 05/31/17 09:33 Dose: 100 mls/hr Latanoprost (Xalatan 0.005% Eye Drops -) 1 drop OU HS [facility] Last Admin: 05/30/17 21:46 Dose: 1 drop Loratadine (Claritin -) 10 mg PO DAILY [facility] Last Admin: 05/31/17 09:34 Dose: 10 mg Methylprednisolone Sodium Succinate (Solu-Medrol -) 40 mg IVPUSH Q6H-IV [facility] Last Admin: 05/31/17 09:34 Dose: 40 mg Montelukast Sodium (Singulair -) 10 mg PO HS [facility] Last Admin: 05/30/17 21:41 Dose: 10 mg Multivitamins/Minerals/Vitamin C (Tab-A-Vit -) 1 tab PO DAILY [facility] Last Admin: 05/31/17 09:34 Dose: 1 tab Pantoprazole Sodium (Protonix Iv) 40 mg IVPUSH DAILY [facility] Last Admin: 05/31/17 09:34 Dose: 40 mg Tiotropium [place] (Spiriva -) 1 puff IH DAILY [facility] Last Admin: 05/31/17 09:34 Dose: Not Given ASSESSMENT AND PLAN: 76 year old woman with PMhx of COPD who presented with hypercarbic respiratory failure requring intubation complicated by cardiac arrest now with GORDO with Cr of 3.3. Pt with 2 arrests on 05/28. #Acute Renal Failure likely secondary to ATN in setting of Cardiac Arrest pt is non-oliguric but remains grossly overloaded check FeNa, FeUrea, UPCR continue Vasopressers and IVF to keep MAP > 65 and cVP 10-12 can decrease IVF once CVP goal is obtained no acute indication for COLUMNIST/COMMENTATOR trend BUN/cr and electrolyses for now avoid nephrotoxins including IV contrast US of kidney pending #COPD Exacerbation continue vent support ICU follow up #s/p Cardiac Arrest ICU care supportive care #Anemia Trend cbc transfuse as per ICU protocol no indication for PRIETO given renal insufficiency is acute Thank you Will follow Philippe Szymanski DO
--- NOTE | 2017-05-31 13:42 | CONSULT ---
Consult Consult Specialty:: Nephrology Referred by:: Dr. Zuniga Reason for Consultation:: Acute renal failure - History of Present Illness Chief Complaint: acute kidney injury History of Present Illness: 76F with multiple medical problems including COPD CHF and hip fracture presents to the hospital with shortness of breath found to have RSV pneumonia. On 2017 patient had an acute episode of respiratory failure causing cardiac arrest x2. Patient was resuscitated and now found to have a creatinine that has increased to 3.3 today. Patient has been on normal saline and has been having borderline adequate urine output. Patient is currently intubated, sedated, and on pressors. Asked to evaluate patient for progressively worsening renal function. - History Source History Provided By: Medical Record Limitations to Obtaining History: Intubated - Past Medical History Cardio/Vascular: Yes: HTN Pulmonary: Yes: COPD, Other (oxygen at home) Gastrointestinal: Yes: Other (History of ulcer disease diagnosed 3 years ago when patient presented with anemia) Renal/: Yes: UTI Musculoskeletal: Yes: Osteoarthritis - Past Surgical History Past Surgical History: Yes: None - Alcohol/Substance Use Hx Alcohol Use: No History of Substance Use: reports: None - Smoking History Smoking history: Current every day smoker Have you smoked in the past 12 months: No Aproximately how many cigarettes per day: 0 If you are a former smoker, when did you quit?: Over 15 years ago - Social History ADL: Independent 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, , 2 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 History of Recent Travel: No Home Medications - Allergies Allergies/Adverse Reactions: Allergies Allergy/AdvReac Type Severity Reaction Status Date / Time No Known Allergies Allergy Verified 05/25/17 05:33 - Home Medications Home Medications: Ambulatory Orders Fluticasone/Salmeterol [Advair 250-50 Diskus] 1 each IH BID 10/15/11 Tiotropium [place] [Spiriva] 18 mcg IH DAILY 10/15/11 Montelukast Na [Singulair -] 10 mg PO HS #0 tablet 10/20/11 Multivitamins [Multivit ([facility] Formulary)] 1 udtab PO DAILY #0 tab 10/20/11 Ferrous Sulfate [Feosol] 325 mg PO TID 01/18/12 Calcium Carbonate/Vitamin D3 [Calcium 600-Vit D3 200 Tablet] 1 each PO DAILY 10/13 Docosahexanoic Acid/Epa [Fish Oil Softgel] 1 each PO DAILY 11/05/12 Potassium Chloride [K-Dur] 20 meq PO DAILY #0 tab.er.prt 11/05/12 Alendronate Sodium [Fosamax] 35 mg PO KELLER 09/01/15 Atorvastatin Ca [Lipitor] 10 mg PO HS 09/01/15 Latanoprost 0.005% Eye Drops [Xalatan 0.005% Eye Drops -] 1 drop OU HS 09/01/15 Diltiazem Cd [Cardizem Cd -] 120 mg PO BID cap.cd.24h 05/07/17 Enoxaparin [Lovenox -] 40 mg SQ DAILY disp.syrin 05/07/17 Loratadine [Claritin -] 10 mg PO DAILY tablet 05/07/17 Mineral Oil/Petrolat,Wht/Water [Eucerin (Small Jar) -] 1 applic TP DAILY jar Polyethylene Glycol 3350 [Miralax 119 gm Btl -] 17 gm PO BID bottle 05/07/17 Prednisone [Deltasone -] 10 mg PO DAILY tablet 05/07/17 Torsemide [Demadex -] 60 mg PO DAILY tablet 05/07/17 Acetaminophen [Tylenol .Regular Strength -] 650 mg PO Q6H PRN 05/25/17 Albuterol 2.5/Ipratropium 0.5 [Duoneb -] 1 amp IH QSHIFT 05/25/17 Ascorbic Acid [Vitamin C -] 500 mg PO TID 05/25/17 Chlorpheniramine/Dextromethorp [Robitussin Long-Acting Liq] 15 ml PO Q6H Docusate Sodium [Colace -] 300 mg PO HS 05/25/17 Menthol/Zinc Oxide [Calmoseptine Ointment] 71 gm TP QSHIFT 05/25/17 Nystatin Oral Suspension - [Nystatin Oral Susp 426845 Units/5 ML -] 500,000 units PO QID 05/25/17 Omeprazole Magnesium [Prilosec Otc] 20 mg PO DAILY 05/25/17 Sodium Chloride Nasal [place] [[place] Nasal [place]] 2 spray NS QSHIFT Family Disease History - Family Disease History Family Disease History: Heart Disease: Father, Other: Mother (Alzheimers Dementia) Review of Systems Unable to obtain ROS, reason: intubated and sedated Physical Exam Vital Signs: Vital Signs Temperature 98 F 05/31/17 10:00 Pulse Rate 76 05/31/17 12:00 Respiratory Rate 14 05/31/17 12:00 Blood Pressure 140/76 05/31/17 12:00 O2 Sat by Pulse Oximetry (%) 99 05/31/17 09:40 Constitutional: Yes: No Distress HENT: Yes: Atraumatic Neck: Yes: Supple, Other (Right IJ central line in place) Cardiovascular: Yes: Regular Rate and Rhythm Respiratory: Yes: Rales (bilaterally at bases) Gastrointestinal: Yes: Soft Renal/: Yes: [place] Present (with clear yellow urine output) Edema: Yes Edema: LUE: 2+, RUE: 2+, LLE: 2+, RLE: 2+ Neurological: Yes: Other (intubated and sedated) Labs: CBC, BMP 05/31/17 05:30 05/31/17 05:30 Imaging - Results Chest X-ray: Report Reviewed, Image Reviewed Cat Scan: Report Reviewed, Image Reviewed Assessment/Plan 76F PMH opf COPD s/p cardiac arrest likely secondary to acute hypoxic hypercarbic respiratory failure s/p cardiopulmonary resuscitation now with GORDO with Cr of 3.3. GORDO-Likely a secondary to decreased perfusion during cardiac arrest x2 causing ATN. Patient also exposed to IV contrast on 05/25/2017 patient with borderline urine output-currently nonoligouric check FeNa, FeUrea, UPCR keep MAP >65 abd CVP 10-12 current CVP 9 Continue IVF for now can start to titrate IVF off once CVP and BP goals met continue to trend BUN/Cr to see peak Ultrasound kidney ordered urine studies to calculate FeNa and FeUrea trend BMP Mg Phos avoid nephrotoxic drugs renally dose all medications for CrCl <15 no dialysis indicated at this time trend CXR COPD Exacerbation continue vent support wean as tolerated Per critical care team Shock liver likely secondary to hypoperfusion dring cardiac arrestx2 continue to improve perfusion to liver keep MAP >65 trend LFTs s/p Cardiac Arrest Per ICU team Anemia continue to trend cbc transfuse PRN CHF: currently on fluids CVP 9 once CVP increases will consider stopping IVF and starting diuresis RSV PNA Hip fracture Lactic acidosis leukocytosis Thank you for this consultative opportunity Will continue to follow Case discussed with attending Dr. Szymanski
[2017-05-31 13:55] LABS: PHOSPHOROUS 5.1 mg/dL (2.5-4.9)
[2017-05-31] MEDS: HEPARIN NA (PORCINE) 5,000 UNITS/ML 1ML VIAL SQ SCH ×2 (15:06→21:02)
[2017-05-31] MEDS: SODIUM CHLORIDE 1,000 ML IV SCH (15:07)
[2017-05-31] MEDS: ATORVASTATIN CA 10 MG TABLET (FP) PO SCH (21:02)
[2017-05-31] MEDS: VASOPRESSIN 50 UNITS in SODIUM CHLORIDE 97.5 ML IVPB SCH (21:02)
[2017-05-31] MEDS: MONTELUKAST NA 10 MG TABLET PO SCH (21:02)
[2017-05-31] MEDS: NOREPINEPHRINE BITARTRATE 8,000 MCG in SODIUM CHLORIDE 492 ML IV SCH (21:03)
[2017-05-31] MEDS: LATANOPROST 0.005% OPHTH SOLN 2.5ML BOTTLE OU SCH (21:04)
[2017-06-01] MEDS: methylPREDNISolone NA SUCC 40 MG/1 ML VIAL IVPUSH SCH ×4 (02:20→21:39)
[2017-06-01] MEDS: PIPERACILLIN/TAZOB 2.25 GM 2.25 GM in DEXTROSE 5%-WATER - 100 ML IVPB SCH ×4 (02:20→21:41)
[2017-06-01] MEDS: HEPARIN NA (PORCINE) 5,000 UNITS/ML 1ML VIAL SQ SCH ×3 (05:55→21:39)
[2017-06-01] MEDS: FERROUS SO4 325 MG TABLET (FP) PO SCH ×3 (05:55→21:39)
[2017-06-01 06:19] LABS: BASO % 0.1 % (0-2.0); HEMATOCRIT 26.2 % (32.4-45.2); HEMOGLOBIN 8.3 GM/dL (10.7-15.3); LYMPH % 2.2 % (8-40); MCH 25.9 pg (25.7-33.7); MCHC 31.6 g/dl (32.0-36.0); MEAN CELL VOLUME 81.9 fl (80-96); MEAN PLT VOLUME 10.1 fl (7.5-11.1); MONO % 7.3 % (3.8-10.2); NEUT % 90.4 % (42.8-82.8); PLATELET COUNT 124 K/MM3 (134-434); RBC 3.19 M/mm3 (3.60-5.2); RDW 20.6 % (11.6-15.6); WHITE BLOOD COUNT 19.7 K/mm3 (4.0-10.0)
[2017-06-01 06:41] LABS: ADD RBC MORPHOLOGY YES; ANISOCYTOSIS 2+
[2017-06-01 07:15] LABS: ALBUMIN 1.9 g/dl (3.4-5.0); ALK PHOS 85 U/L (45-117); ANION GAP 11 (8-16); BILIRUBIN,TOTAL 0.4 mg/dL (0.2-1.0); BLOOD UREA NITROGEN 103 mg/dL (7-18); CHLORIDE 113 mmol/L (98-107); CO2 23 mmol/L (21-32); CREATININE 3.9 mg/dL (0.55-1.02); GLUCOSE,RANDOM 100 mg/dL (74-106); MAGNESIUM 2.8 mg/dL (1.8-2.4); PHOSPHOROUS 5.9 mg/dL (2.5-4.9); SGOT/AST 107 U/L (15-37); SODIUM 147 mmol/L (136-145); TOT PROT 4.4 g/dl (6.4-8.2)
[2017-06-01 07:20] LABS: SGPT/ALT 444 U/L (12-78)
[2017-06-01 07:21] LABS: CALCIUM 5.7 mg/dL (8.5-10.1)
--- NOTE | 2017-06-01 09:05 | PN ---
Physical Exam: SUBJECTIVE: Patient seen and examined The patient is a 76 year old female with a history of COPD, CHF, recent hip Fx and replacement 04/18 c/b COPD exacerbation who presented with acute respiratory failure readmitted to the ICU following a cardiac arrest event. Patient is minimally responsive off sedation for 24 hours. Otherwise no acute events overnight. OBJECTIVE: Vital Signs Period Temp Pulse Resp BP Sys/Ellis Pulse Ox Last 24 Hr 98 F-98.7 F 74-95 14-22 118-148/47-82 97-99 GENERAL: The patient is intubated, in no acute distress. HEAD: Normal with no signs of trauma. EYES: sclera anicteric, conjunctiva clear. No ptosis. ENT: oropharynx clear without exudates, moist mucous membranes. NECK: Trachea midline, full range of motion, supple. LUNGS: Breath sounds equal, Course crackles auscultated on the right, no wheezes , no accessory muscle use. HEART: Regular rate and rhythm, S1, S2 without murmur, rub or gallop. ABDOMEN: Soft, nontender, nondistended, normoactive bowel sounds, no guarding, no rebound, no hepatosplenomegaly, no masses. EXTREMITIES: 2+ pulses, warm, well-perfused, NEUROLOGICAL: Unresponsive. gait not observed. PSYCH: Normal mood, normal affect. SKIN: Warm, dry, normal turgor, no rashes or lesions noted Laboratory Results - last 24 hr 05/31/17 05/31/17 05/31/17 05:30 10:00 10:00 WBC RBC Hgb Hct MCV MCH MCHC RDW Plt Count MPV Neutrophils % Lymphocytes % Monocytes % Eosinophils % Basophils % Anisocytosis Sodium 145 Potassium 4.9 Chloride 110 H Carbon Dioxide 27 Anion Gap 8 BUN 85 H Creatinine 3.3 H Creat Clearance w eGFR 13.56 Random Glucose 151 H Calcium 6.3 L* Phosphorus 5.1 H Magnesium 3.0 H Total Bilirubin 0.6 AST 175 H ALT 701 H Alkaline Phosphatase 96 Total Protein 4.6 L Albumin 1.9 L Urine Color Ltyellow Urine Appearance Clear Urine pH 5.0 Ur Specific [place] 1.012 Urine Protein Negative Urine Glucose (UA) 1+ H Urine Ketones Negative Urine Blood 2+ H Urine Nitrite Negative Urine Bilirubin Negative Urine Urobilinogen Negative Ur Leukocyte Esterase Negative Urine WBC (Auto) 1 Urine RBC (Auto) 4 Ur Epithelial Cells Rare U Random Total Protein Ur Random Sodium 56 Ur Random Urea Nitrogn Urine Creatinine 05/31/17 05/31/17 06/01/17 10:00 10:00 05:50 WBC 19.7 H RBC 3.19 L Hgb 8.3 L Hct 26.2 L MCV 81.9 MCH 25.9 MCHC 31.6 L RDW 20.6 H Plt Count 124 L MPV 10.1 Neutrophils % 90.4 H Lymphocytes % 2.2 L Monocytes % 7.3 D Eosinophils % 0.0 Basophils % 0.1 D Anisocytosis 2+ Sodium Potassium Chloride Carbon Dioxide Anion Gap BUN Creatinine Creat Clearance w eGFR Random Glucose Calcium Phosphorus Magnesium Total Bilirubin AST ALT Alkaline Phosphatase Total Protein Albumin Urine Color Urine Appearance Urine pH Ur Specific [place] Urine Protein Urine Glucose (UA) Urine Ketones Urine Blood Urine Nitrite Urine Bilirubin Urine Urobilinogen Ur Leukocyte Esterase Urine WBC (Auto) Urine RBC (Auto) Ur Epithelial Cells U Random Total Protein 48 H Ur Random Sodium Ur Random Urea Nitrogn 476 Urine Creatinine 25.8 06/01/17 05:50 WBC RBC Hgb Hct MCV MCH MCHC RDW Plt Count MPV Neutrophils % Lymphocytes % Monocytes % Eosinophils % Basophils % Anisocytosis Sodium 147 H Potassium 5.0 Chloride 113 H Carbon Dioxide 23 Anion Gap 11 BUN 103 H Creatinine 3.9 H Creat Clearance w eGFR 11.18 Random Glucose 100 Calcium 5.7 L* Phosphorus 5.9 H Magnesium 2.8 H Total Bilirubin 0.4 D AST 107 H ALT 444 H Alkaline Phosphatase 85 Total Protein 4.4 L Albumin 1.9 L Urine Color Urine Appearance Urine pH Ur Specific [place] Urine Protein Urine Glucose (UA) Urine Ketones Urine Blood Urine Nitrite Urine Bilirubin Urine Urobilinogen Ur Leukocyte Esterase Urine WBC (Auto) Urine RBC (Auto) Ur Epithelial Cells U Random Total Protein Ur Random Sodium Ur Random Urea Nitrogn Urine Creatinine Active Medications Generic Name Dose Route Start Last Admin Trade Name Freq PRN Reason Stop Dose Admin Acetaminophen 325 mg 05/27/17 12:22 Tylenol Suppository - [place] Q4H PRN FEVER Acetaminophen 1,000 mg 05/29/17 02:10 Ofirmev Injection - IVPB Q6H PRN FEVER Albuterol Sulfate 1 amp 05/27/17 12:22 05/28/17 08:07 Ventolin 0.083% Nebulizer Soln - NEB 1 amp Q4H PRN Administration SHORT OF BREATH/WHEEZING Atorvastatin Calcium 10 mg 05/27/17 22:00 05/31/17 21:02 Lipitor - PO 10 mg HS JEANNA Administration Ferrous Sulfate 325 mg 05/27/17 22:00 06/01/17 05:55 Feosol - PO 325 mg TID JEANNA Administration Heparin Sodium (Porcine) 5,000 unit 05/31/17 14:00 06/01/17 05:55 Heparin - SQ 5,000 unit TID JEANNA Administration Propofol 1,000,000 mcg in 100 mls @ 1.666 mls/hr 05/28/17 11:30 05/30/17 21: 40 Diprivan - IVPB 15 mcg/kg/min TITR JEANNA 4.997 mls/hr Protocol Administration 5 MCG/KG/MIN Sodium Chloride 1,000 mls @ 100 mls/hr 05/28/17 13:00 05/31/17 15:07 Normal Saline - IV 100 mls/hr ASDIR JEANNA Administration Vasopressin 50 units/ Sodium 100 mls @ 24 mls/hr 05/28/17 17:15 05/31/17 21: 02 Chloride IVPB Not Given TITR JEANNA Protocol 0.2 UNITS/MIN Norepinephrine Bitartrate 8, 500 mls @ 18.75 mls/hr 05/28/17 18:00 05/31/17 21:03 000 mcg/ Sodium Chloride IV Not Given TITR JEANNA Protocol 5 MCG/MIN Piperacillin Sod/Tazobactam 100 mls @ 100 mls/hr 05/29/17 13:33 06/01/17 02: 20 Sod 2.25 gm/ Dextrose IVPB 100 mls/hr Q6H-IV JEANNA Administration Latanoprost 1 drop 05/27/17 22:00 05/31/17 21:04 Xalatan 0.005% Eye Drops - OU 1 drop HS JEANNA Administration Loratadine 10 mg 05/28/17 10:00 05/31/17 09:34 Claritin - PO 10 mg DAILY JEANNA Administration Methylprednisolone Sodium Succinate 40 mg 05/27/17 15:00 06/01/17 02:20 Solu-Medrol - IVPUSH 40 mg Q6H-IV JEANNA Administration Montelukast Sodium 10 mg 05/27/17 22:00 05/31/17 21:02 Singulair - PO 10 mg HS JEANNA Administration Multivitamins/Minerals/Vitamin C 1 tab 05/28/17 10:00 05/31/17 09:34 Tab-A-Vit - PO 1 tab DAILY JEANNA Administration Pantoprazole Sodium 40 mg 05/28/17 10:00 05/31/17 09:34 Protonix Iv IVPUSH 40 mg DAILY JEANNA Administration Tiotropium [place] 1 puff 05/28/17 10:00 05/31/17 09:34 Spiriva - IH Not Given DAILY JEANNA ASSESSMENT/PLAN: The patient is a 76 year old female with a history of COPD, CHF, recent hip Fx and replacement 04/18 c/b COPD exacerbation who presented with acute respiratory failure readmitted to the ICU following a cardiac arrest event. NEURO Patient remains minimally responsive off sedation. -Patient has continued to remain un-responsive off sedation for 24 hours. -Will continue to monitor. CV #Hypotension (Improved) -Patient now stable off pressors. -Will continue to monitor. #Elevated troponin (Improved) -Now downtrending. RESP #Acute respiratory failure Patient now re-intubated following a cardiac arrest earlier today. Chest plain film demonstrates right sided rib fractures likely due to chest compressions. It is likely the patient aspirated leading to a respiratory arrest that led to the cardiac arrest. -Will cover the patient with zosyn. -Continue solu-medrol. -Will maintain the patient on the ventilator. -Will continue to monitor. GI -NG tube with feeds. Renal #GORDO -Worsening bun/creatinine with minimal urine output. -If the patient continues to only output 400-500ccs of urine, trial dose of 40mg of lasix in the pm. -Will continue to monitor bun/creatinine. ID #Pneumonia vs. Influenza vs. RSV -Continue zosyn. -Re-culture if patient spikes a temp. -Follow recs from ID [facility] No issues currently FEN/GI -Replete electrolytes PRN, will monitor -Discontinue IV fluids. -Tube feeds. PPX -Lovenox 40 sq daily -Protonix 40 IV daily for GI ppx DISPO: Continue ICU level of care. Visit type - Emergency Visit Emergency Visit: No - New Patient This patient is new to me today: No - Critical Care Critical Care patient: Yes Total Critical Care Time (in minutes): 35 Critical Care Statement: The care of this patient involved high complexity decision making to prevent further life threatening deterioration of the patient 's condition and/or to evaluate & treat vital organ system(s) failure or risk of failure.
[2017-06-01] MEDS ORDERED: PT OWN MED DRAWER 7, Y5N ONE ×2 (09:32→21:29)
[2017-06-01] MEDS: PANTOPRAZOLE SODIUM 40 MG VIAL IVPUSH SCH (09:48)
[2017-06-01] MEDS: LORATADINE 10 MG TABLET PO SCH (09:48)
[2017-06-01] MEDS: MULTIVITAMINS (DAILY MVI) TABLET (FP) PO SCH (09:48)
[2017-06-01] MEDS ORDERED: CALCIUM GLUCONATE 10% - 1,000 MG/10 ML VIAL IVPB ONE (10:00)
--- NOTE | 2017-06-01 10:21 | PN ---
Progress Note, Physician Chief Complaint: Unable to obtain, patient obtunded - Current Medication List Current Medications: Active Medications Acetaminophen (Tylenol Suppository -) 325 mg [place] Q4H PRN PRN Reason: FEVER Acetaminophen (Ofirmev Injection -) 1,000 mg IVPB Q6H PRN PRN Reason: FEVER Albuterol Sulfate (Ventolin 0.083% Nebulizer Soln -) 1 amp NEB Q4H PRN PRN Reason: SHORT OF BREATH/WHEEZING Last Admin: 05/28/17 08:07 Dose: 1 amp Atorvastatin Calcium (Lipitor -) 10 mg PO HS JEANNA Last Admin: 05/31/17 21:02 Dose: 10 mg Calcium Carbonate (Calcium Carb Oral Suspension -) 500 mg NGT BID JEANNA Ferrous Sulfate (Feosol -) 325 mg PO TID JEANNA Last Admin: 06/01/17 05:55 Dose: 325 mg Heparin Sodium (Porcine) (Heparin -) 5,000 unit SQ TID JEANNA Last Admin: 06/01/17 05:55 Dose: 5,000 unit Propofol (Diprivan -) 1,000,000 mcg in 100 mls @ 1.666 mls/hr IVPB TITR JEANNA; 5 MCG/KG/MIN PRN Reason: Protocol Last Admin: 05/30/17 21:40 Dose: 15 mcg/kg/min, 4.997 mls/hr Sodium Chloride (Normal Saline -) 1,000 mls @ 100 mls/hr IV ASDIR JEANNA Last Admin: 05/31/17 15:07 Dose: 100 mls/hr Vasopressin 50 units/ Sodium (Chloride) 100 mls @ 24 mls/hr IVPB TITR JEANNA; 0.2 UNITS/MIN PRN Reason: Protocol Last Admin: 05/31/17 21:02 Dose: Not Given Norepinephrine Bitartrate 8, (000 mcg/ Sodium Chloride) 500 mls @ 18.75 mls/hr IV TITR JEANNA; 5 MCG/MIN PRN Reason: Protocol Last Admin: 05/31/17 21:03 Dose: Not Given Piperacillin Sod/Tazobactam (Sod 2.25 gm/ Dextrose) 100 mls @ 100 mls/hr IVPB Q6H-IV JEANNA Last Admin: 06/01/17 09:48 Dose: 100 mls/hr Latanoprost (Xalatan 0.005% Eye Drops -) 1 drop OU HS JEANNA Last Admin: 05/31/17 21:04 Dose: 1 drop Loratadine (Claritin -) 10 mg PO DAILY [facility] Last Admin: 06/01/17 09:48 Dose: 10 mg Methylprednisolone Sodium Succinate (Solu-Medrol -) 40 mg IVPUSH Q6H-IV [facility] Last Admin: 06/01/17 09:48 Dose: 40 mg Montelukast Sodium (Singulair -) 10 mg PO HS [facility] Last Admin: 05/31/17 21:02 Dose: 10 mg Multivitamins/Minerals/Vitamin C (Tab-A-Vit -) 1 tab PO DAILY [facility] Last Admin: 06/01/17 09:48 Dose: 1 tab Pantoprazole Sodium (Protonix Iv) 40 mg IVPUSH DAILY [facility] Last Admin: 06/01/17 09:48 Dose: 40 mg Tiotropium [place] (Spiriva -) 1 puff IH DAILY [facility] Last Admin: 05/31/17 09:34 Dose: Not Given - Objective Vital Signs: Vital Signs Temperature 37.1 C 06/01/17 06:00 Pulse Rate 90 06/01/17 08:49 Respiratory Rate 14 06/01/17 08:49 Blood Pressure 132/80 06/01/17 08:00 O2 Sat by Pulse Oximetry (%) 99 06/01/17 08:49 Constitutional: Yes: No Distress, Calm Cardiovascular: Yes: Regular Rate and Rhythm. No: Gallop, Murmur, Rub Respiratory: Yes: Regular, CTA Bilaterally, Intubated, Mechanically Ventilated. No: Rales, Rhonchi, Wheezes Gastrointestinal: Yes: Normal Bowel Sounds, Soft. No: Distention, Tenderness Extremities: Yes: WNL Edema: Yes Edema: LUE: 1+, RUE: 1+, LLE: 1+, RLE: 1+ Labs: CBC, BMP 06/01/17 05:50 06/01/17 05:50 INR, PTT INR 0.95 (0.82-1.09) 05/28/17 09:50 Problem List - Problems (1) Asystole Code(s): I46.9 - CARDIAC ARREST, CAUSE UNSPECIFIED (2) Lactic acid acidosis Code(s): E87.2 - ACIDOSIS (3) Hemodynamic instability Code(s): R09.89 - OTH SYMPTOMS AND SIGNS INVOLVING THE CIRC AND RESP SYSTEMS (4) Shock liver Code(s): K72.00 - ACUTE AND SUBACUTE HEPATIC FAILURE WITHOUT COMA (5) RSV (respiratory syncytial virus pneumonia) Code(s): J12.1 - RESPIRATORY SYNCYTIAL VIRUS PNEUMONIA (6) Acute and chronic respiratory failure with hypercapnia Code(s): J96.22 - ACUTE AND CHRONIC RESPIRATORY FAILURE WITH HYPERCAPNIA (7) COPD exacerbation Code(s): J44.1 - CHRONIC OBSTRUCTIVE PULMONARY DISEASE W (ACUTE) EXACERBATION (8) CHF (congestive heart failure) Code(s): I50.9 - HEART FAILURE, UNSPECIFIED Qualifiers: Congestive heart failure type: diastolic Congestive heart failure chronicity: chronic Qualified Code(s): I50.32 - Chronic diastolic (congestive ) heart failure (9) Fracture, hip Code(s): S72.009A - FRACTURE OF UNSP PART OF NECK OF UNSP FEMUR, INIT Qualifiers: Encounter type: initial encounter Fracture type: closed Laterality: left Qualified Code(s): S72.002A - Fracture of unspecified part of neck of left femur, initial encounter for closed fracture (10) Hypertension Code(s): I10 - ESSENTIAL (PRIMARY) HYPERTENSION Assessment/Plan (1) Asystolic cardiac arrest -successfully resuscitated -currently DNR -patient off of propofol for over 24 hours prior to seeing with minimal neurologic improvement (+corneal response but minimal to pain, pupil response inaccurate secondary to cataracts) -case d/w pulmonary, holding propofol to see if recovers -son made aware -patient still obtunded today after being off propofol for over 24 hours -very poor prognosis, mental status secondary to hypoxic event over renal insult (2) Acute and chronic hypoxic respiratory failure Assessment/Plan: -recurrent and cause of asystole -intubated and mechanically ventilated -pulmonary following and case discussed Code(s): J96.22 - ACUTE AND CHRONIC RESPIRATORY FAILURE WITH HYPERCAPNIA (3) COPD exacerbation Assessment/Plan: -continue steroids Code(s): J44.1 - CHRONIC OBSTRUCTIVE PULMONARY DISEASE W (ACUTE) EXACERBATION (3) CHF (congestive heart failure) Assessment/Plan: -currently hypotensive requiring pressors -hold torsemide -weaning pressors Code(s): I50.9 - HEART FAILURE, UNSPECIFIED Qualifiers: Congestive heart failure type: diastolic Congestive heart failure chronicity: chronic Qualified Code(s): I50.32 - Chronic diastolic (congestive ) heart failure (4) Fracture, hip Assessment/Plan: -reason for being at SNF -continue lovenox for DVT PPx Code(s): S72.009A - FRACTURE OF UNSP PART OF NECK OF UNSP FEMUR, INIT Qualifiers: Encounter type: initial encounter Fracture type: closed Laterality: left Qualified Code(s): S72.002A - Fracture of unspecified part of neck of left femur, initial encounter for closed fracture (5) Hypertension Assessment/Plan: -hold diltiazem and torsemide Code(s): I10 - ESSENTIAL (PRIMARY) HYPERTENSION (6) Hypocalcemia -replaced as needed (7) Shock Liver -improving (8) Hemodynamic instability -currently on pressors (9) Lactic acidosis -resolved (10) GORDO -suspect secondary to code/ATN -case d/w Dr Szymanski -receiving lasix today for fluid overload -uremia not cause of AMS (11) RSV pneumonia -case d/w ID -RSV found in the outpatient setting -chest x-ray reviewed and unchanged -continue zosyn as may have a bacterial infection on RSV 32 minutes spent in critical care time
--- NOTE | 2017-06-01 11:00 | PN ---
Progress Note (short form) - Note Progress Note: Renal follow up for GORDO Pt seen and examined in the ICU on Vent not awake or alert off of sedation making urine, ~600cc in the last 24 hours on IVF off pressers CVP is ~5 Vital Signs Temperature 98.8 F 06/01/17 10:00 Pulse Rate 92 H 06/01/17 10:00 Respiratory Rate 14 06/01/17 10:00 Blood Pressure 140/83 06/01/17 10:00 O2 Sat by Pulse Oximetry (%) 99 06/01/17 08:49 Intake & Output 05/29/17 05/30/17 05/31/17 06/01/17 23:59 23:59 23:59 23:59 Intake Total 4258.8 2162.0 3010 850 Output Total 200 450 600 200 Balance 4058.8 1712.0 2410 650 Weight 56.8 kg 60.3 kg 60.2 kg 61.7 kg NAD on Vent via ET tube Dec BS b/l lung kwok RRR soft NT/ND trace to 1+ LE edema 2+ UE edema [place] in place CBC, BMP 06/01/17 05:50 06/01/17 05:50 Laboratory Tests 06/01/17 05:50 Calcium 5.7 L* Phosphorus 5.9 H Magnesium 2.8 H Albumin 1.9 L Current Medications Acetaminophen (Tylenol Suppository -) 325 mg [place] Q4H PRN PRN Reason: FEVER Acetaminophen (Ofirmev Injection -) 1,000 mg IVPB Q6H PRN PRN Reason: FEVER Albuterol Sulfate (Ventolin 0.083% Nebulizer Soln -) 1 amp NEB Q4H PRN PRN Reason: SHORT OF BREATH/WHEEZING Last Admin: 05/28/17 08:07 Dose: 1 amp Atorvastatin Calcium (Lipitor -) 10 mg PO HS [facility] Last Admin: 05/31/17 21:02 Dose: 10 mg Calcium Carbonate (Calcium Carb Oral Suspension -) 500 mg NGT BID JEANNA Ferrous Sulfate (Feosol -) 325 mg PO TID [facility] Last Admin: 06/01/17 05:55 Dose: 325 mg Heparin Sodium (Porcine) (Heparin -) 5,000 unit SQ TID [facility] Last Admin: 06/01/17 05:55 Dose: 5,000 unit Propofol (Diprivan -) 1,000,000 mcg in 100 mls @ 1.666 mls/hr IVPB TITR JEANNA; 5 MCG/KG/MIN PRN Reason: Protocol Last Admin: 05/30/17 21:40 Dose: 15 mcg/kg/min, 4.997 mls/hr Vasopressin 50 units/ Sodium (Chloride) 100 mls @ 24 mls/hr IVPB TITR JEANNA; 0.2 UNITS/MIN PRN Reason: Protocol Last Admin: 05/31/17 21:02 Dose: Not Given Norepinephrine Bitartrate 8, (000 mcg/ Sodium Chloride) 500 mls @ 18.75 mls/hr IV TITR JEANNA; 5 MCG/MIN PRN Reason: Protocol Last Admin: 05/31/17 21:03 Dose: Not Given Piperacillin Sod/Tazobactam (Sod 2.25 gm/ Dextrose) 100 mls @ 100 mls/hr IVPB Q6H-IV JEANNA Last Admin: 06/01/17 09:48 Dose: 100 mls/hr Latanoprost (Xalatan 0.005% Eye Drops -) 1 drop OU HS [facility] Last Admin: 05/31/17 21:04 Dose: 1 drop Loratadine (Claritin -) 10 mg PO DAILY [facility] Last Admin: 06/01/17 09:48 Dose: 10 mg Methylprednisolone Sodium Succinate (Solu-Medrol -) 40 mg IVPUSH Q6H-IV [facility] Last Admin: 06/01/17 09:48 Dose: 40 mg Montelukast Sodium (Singulair -) 10 mg PO HS [facility] Last Admin: 05/31/17 21:02 Dose: 10 mg Multivitamins/Minerals/Vitamin C (Tab-A-Vit -) 1 tab PO DAILY [facility] Last Admin: 06/01/17 09:48 Dose: 1 tab Pantoprazole Sodium (Protonix Iv) 40 mg IVPUSH DAILY [facility] Last Admin: 06/01/17 09:48 Dose: 40 mg Tiotropium [place] (Spiriva -) 1 puff IH DAILY [facility] Last Admin: 05/31/17 09:34 Dose: Not Given 76 year old woman with PMhx of COPD who presented with hypercarbic respiratory failure requring intubation complicated by cardiac arrest now with GORDO with Cr of 3.3. Pt with 2 arrests on 05/28. #Acute Renal Failure s/p cardiac arrest Urine studies and clinical course are consistent with ATN from renal hypoprofusion currently pt is non-oliguric but just slightly has peen in positive balance for the last several days and has signs of volume overload (edema, pleural effusions) CVP is only around 5 but pt is off pressers and maintaining a good BP will hold IVF at this time would monitor urine output for the next 8 hours, if output remains marginal can attempt IV diuresis as long as MAP is above goal no acute indication for [employer] at the present time, and unlikely that [employer] would significantly improve morbidity given lack of improvement in MS avoid nephrotoxins and IV contrast dose all meds for CrCl less then 10 #Cardiac Arrest/COPD/Resp Failure continue ICU care Prognosis is guarded Thank you Will follow Philippe Szymanski DO
[2017-06-01] MEDS: CALCIUM CARBONATE SUSPENSION - 500 MG/5 ML ML NGT SCH ×2 (11:40→23:45)
[2017-06-01] MEDS: TIOTROPIUM BROMIDE 18 MCG/INH (DEVICE W/ 5 CAPSULES) IH SCH (11:41)
--- NOTE | 2017-06-01 12:56 | PN ---
Teaching Attending Note Name of Resident: Rigoberto Eddy ATTENDING PHYSICIAN STATEMENT I saw and evaluated the patient. I reviewed the resident's note and discussed the case with the resident. I agree with the resident's findings and plan as documented. SUBJECTIVE: Pt seen and examined in the ICU. Remains intubated but poorly responsive off sedation. Off pressors. OBJECTIVE: Last Vital Signs Temp Pulse Resp BP Pulse Ox 98.8 F 91 H 15 131/72 98 06/01/17 10:00 06/01/17 12:01 06/01/17 12:01 06/01/17 11:48 06/01/17 12:01 Intake & Output 05/29/17 05/30/17 05/31/17 06/01/17 23:59 23:59 23:59 23:59 Intake Total 4258.8 2162.0 3010 850 Output Total 200 450 600 200 Balance 4058.8 1712.0 2410 650 Weight 56.8 kg 60.3 kg 60.2 kg 61.7 kg Gen: intubated, poorly responsive, tachypneic Heart: RRR Lung: bilateral rhonchi Abd: soft, nontender Ext: + edema CBC, BMP 06/01/17 05:50 06/01/17 05:50 Active Medications Acetaminophen (Tylenol Suppository -) 325 mg [place] Q4H PRN PRN Reason: FEVER Acetaminophen (Ofirmev Injection -) 1,000 mg IVPB Q6H PRN PRN Reason: FEVER Albuterol Sulfate (Ventolin 0.083% Nebulizer Soln -) 1 amp NEB Q4H PRN PRN Reason: SHORT OF BREATH/WHEEZING Last Admin: 05/28/17 08:07 Dose: 1 amp Atorvastatin Calcium (Lipitor -) 10 mg PO HS [facility] Last Admin: 05/31/17 21:02 Dose: 10 mg Calcium Carbonate (Calcium Carb Oral Suspension -) 500 mg NGT BID [facility] Last Admin: 06/01/17 11:40 Dose: 500 mg Ferrous Sulfate (Feosol -) 325 mg PO TID [facility] Last Admin: 06/01/17 05:55 Dose: 325 mg Heparin Sodium (Porcine) (Heparin -) 5,000 unit SQ TID [facility] Last Admin: 06/01/17 05:55 Dose: 5,000 unit Piperacillin Sod/Tazobactam (Sod 2.25 gm/ Dextrose) 100 mls @ 100 mls/hr IVPB Q6H-IV [facility] Last Admin: 06/01/17 09:48 Dose: 100 mls/hr Latanoprost (Xalatan 0.005% Eye Drops -) 1 drop OU HS [facility] Last Admin: 05/31/17 21:04 Dose: 1 drop Loratadine (Claritin -) 10 mg PO DAILY [facility] Last Admin: 06/01/17 09:48 Dose: 10 mg Methylprednisolone Sodium Succinate (Solu-Medrol -) 40 mg IVPUSH Q6H-IV [facility] Last Admin: 06/01/17 09:48 Dose: 40 mg Montelukast Sodium (Singulair -) 10 mg PO HS [facility] Last Admin: 05/31/17 21:02 Dose: 10 mg Multivitamins/Minerals/Vitamin C (Tab-A-Vit -) 1 tab PO DAILY [facility] Last Admin: 06/01/17 09:48 Dose: 1 tab Pantoprazole Sodium (Protonix Iv) 40 mg IVPUSH DAILY [facility] Last Admin: 06/01/17 09:48 Dose: 40 mg Tiotropium [place] (Spiriva -) 1 puff IH DAILY [facility] Last Admin: 06/01/17 11:41 Dose: Not Given ASSESSMENT AND PLAN: Acute Hypoxic and Hypercapneic Respiratory Failure r/o Anoxic Encephalopathy Pneumonia UTI Septic Shock Acute Kidney Injury Elevated LFTs likely Ischemic Injury +Troponins likely Demand Ischemia Acute COPD Exacerbation LV Diastolic Dysfunction Pulmonary HTN - continue antibiotics - f/u cultures - continue medrol at current dose - inhaled bronchodilators standing and PRN - IVF to keep CVP 8-12 - monitor urine output, creatinine - off pressors, maintain MAP >65 - hold sedation to assess mental status - spontaneous breathing trials as tolerated when mental status improved - enteral feeds - DVT/GI prophylaxis - continue ICU monitoring - poor prognosis critical care time spent in reviewing chart, evaluating patient and formulating plan 35 min
--- NOTE | 2017-06-01 13:46 | PN ---
Progress Note, Physician History of Present Illness: poorly responsive when sedation turned off continues to be intubated - Current Medication List Current Medications: Active Medications Acetaminophen (Tylenol Suppository -) 325 mg [place] Q4H PRN PRN Reason: FEVER Acetaminophen (Ofirmev Injection -) 1,000 mg IVPB Q6H PRN PRN Reason: FEVER Albuterol Sulfate (Ventolin 0.083% Nebulizer Soln -) 1 amp NEB Q4H PRN PRN Reason: SHORT OF BREATH/WHEEZING Last Admin: 05/28/17 08:07 Dose: 1 amp Atorvastatin Calcium (Lipitor -) 10 mg PO HS [facility] Last Admin: 05/31/17 21:02 Dose: 10 mg Calcium Carbonate (Calcium Carb Oral Suspension -) 500 mg NGT BID [facility] Last Admin: 06/01/17 11:40 Dose: 500 mg Ferrous Sulfate (Feosol -) 325 mg PO TID [facility] Last Admin: 06/01/17 05:55 Dose: 325 mg Heparin Sodium (Porcine) (Heparin -) 5,000 unit SQ TID [facility] Last Admin: 06/01/17 05:55 Dose: 5,000 unit Piperacillin Sod/Tazobactam (Sod 2.25 gm/ Dextrose) 100 mls @ 100 mls/hr IVPB Q6H-IV [facility] Last Admin: 06/01/17 09:48 Dose: 100 mls/hr Latanoprost (Xalatan 0.005% Eye Drops -) 1 drop OU [facility] Last Admin: 05/31/17 21:04 Dose: 1 drop Loratadine (Claritin -) 10 mg PO DAILY [facility] Last Admin: 06/01/17 09:48 Dose: 10 mg Methylprednisolone Sodium Succinate (Solu-Medrol -) 40 mg IVPUSH Q6H-IV [facility] Last Admin: 06/01/17 09:48 Dose: 40 mg Montelukast Sodium (Singulair -) 10 mg PO [facility] Last Admin: 05/31/17 21:02 Dose: 10 mg Multivitamins/Minerals/Vitamin C (Tab-A-Vit -) 1 tab PO DAILY [facility] Last Admin: 06/01/17 09:48 Dose: 1 tab Pantoprazole Sodium (Protonix Iv) 40 mg IVPUSH DAILY [facility] Last Admin: 06/01/17 09:48 Dose: 40 mg Tiotropium [place] (Spiriva -) 1 puff IH DAILY [facility] Last Admin: 06/01/17 11:41 Dose: Not Given - Objective Vital Signs: Vital Signs Temperature 98.8 F 06/01/17 10:00 Pulse Rate 88 06/01/17 13:00 Respiratory Rate 14 06/01/17 13:00 Blood Pressure 136/78 06/01/17 13:00 O2 Sat by Pulse Oximetry (%) 98 06/01/17 12:01 Constitutional: Yes: Other Cardiovascular: Yes: Regular Rate and Rhythm Respiratory: Yes: Intubated, Mechanically Ventilated Gastrointestinal: Yes: Normal Bowel Sounds, Soft Genitourinary: Yes: [place] Present Musculoskeletal: Yes: WNL Extremities: Yes: WNL Neurological: Yes: Other Labs: CBC, BMP 06/01/17 05:50 06/01/17 05:50 INR, PTT INR 0.95 (0.82-1.09) 05/28/17 09:50 - ....Imaging Chest X-ray: Report Reviewed, Image Reviewed Assessment/Plan Problem List - Problems (1) Acute and chronic respiratory failure with hypercapnia Code(s): J96.22 - ACUTE AND CHRONIC RESPIRATORY FAILURE WITH HYPERCAPNIA (2) COPD exacerbation Code(s): J44.1 - CHRONIC OBSTRUCTIVE PULMONARY DISEASE W (ACUTE) EXACERBATION (3) CHF (congestive heart failure) Code(s): I50.9 - HEART FAILURE, UNSPECIFIED Qualifiers: Congestive heart failure type: diastolic Congestive heart failure chronicity: chronic Qualified Code(s): I50.32 - Chronic diastolic (congestive ) heart failure (4) Fracture, hip Code(s): S72.009A - FRACTURE OF UNSP PART OF NECK OF UNSP FEMUR, INIT Qualifiers: Encounter type: initial encounter Fracture type: closed Laterality: left Qualified Code(s): S72.002A - Fracture of unspecified part of neck of left femur, initial encounter for closed fracture (5) Hypertension Code(s): I10 - ESSENTIAL (PRIMARY) HYPERTENSION 6 pneumonia 7 leukocytosis 8 uti plan lcx of the urine noted plan continue abx supportive measures nutrition rest as per icu patient continues to be critical cc time 40 min
[2017-06-01] MEDS ORDERED: FUROSEMIDE 40 MG/4 ML INJECTABLE VIAL IVPUSH ONE (18:10)
[2017-06-01] MEDS ORDERED: FUROSEMIDE 40 MG/4 ML INJECTABLE VIAL ONE (18:13)
[2017-06-01] MEDS: LATANOPROST 0.005% OPHTH SOLN 2.5ML BOTTLE OU SCH (21:39)
[2017-06-01] MEDS: MONTELUKAST NA 10 MG TABLET PO SCH (21:39)
[2017-06-01] MEDS: ATORVASTATIN CA 10 MG TABLET (FP) PO SCH (21:39)
[2017-06-02] MEDS: methylPREDNISolone NA SUCC 40 MG/1 ML VIAL IVPUSH SCH ×4 (02:37→20:12)
[2017-06-02] MEDS: PIPERACILLIN/TAZOB 2.25 GM 2.25 GM in DEXTROSE 5%-WATER - 100 ML IVPB SCH ×4 (02:37→20:12)
[2017-06-02] MEDS: FERROUS SO4 325 MG TABLET (FP) PO SCH ×3 (05:37→21:32)
[2017-06-02] MEDS: HEPARIN NA (PORCINE) 5,000 UNITS/ML 1ML VIAL SQ SCH ×3 (05:37→21:32)
[2017-06-02 05:47] LABS: BASO % 0.1 % (0-2.0); HEMATOCRIT 28.8 % (32.4-45.2); HEMOGLOBIN 9.1 GM/dL (10.7-15.3); LYMPH % 1.6 % (8-40); MCH 26.1 pg (25.7-33.7); MCHC 31.6 g/dl (32.0-36.0); MEAN CELL VOLUME 82.4 fl (80-96); MEAN PLT VOLUME 10.7 fl (7.5-11.1); MONO % 5.1 % (3.8-10.2); NEUT % 93.2 % (42.8-82.8); PLATELET COUNT 159 K/MM3 (134-434); RBC 3.49 M/mm3 (3.60-5.2); RDW 21.4 % (11.6-15.6); WHITE BLOOD COUNT 18.7 K/mm3 (4.0-10.0)
[2017-06-02 06:15] LABS: ALK PHOS 96 U/L (45-117); ANION GAP 13 (8-16); BILIRUBIN,TOTAL 0.6 mg/dL (0.2-1.0); CHLORIDE 111 mmol/L (98-107); CO2 21 mmol/L (21-32); CREATININE 4.4 mg/dL (0.55-1.02); GLUCOSE,RANDOM 169 mg/dL (74-106); PHOSPHOROUS 7.2 mg/dL (2.5-4.9); POTASSIUM 5.3 mmol/L (3.5-5.1); SGOT/AST 93 U/L (15-37); SGPT/ALT 344 U/L (12-78); SODIUM 145 mmol/L (136-145); TOT PROT 4.9 g/dl (6.4-8.2)
[2017-06-02 06:24] LABS: BLOOD UREA NITROGEN 112 mg/dL (7-18)
[2017-06-02] MEDS: PANTOPRAZOLE SODIUM 40 MG VIAL IVPUSH SCH (09:32)
[2017-06-02] MEDS: LORATADINE 10 MG TABLET PO SCH (09:33)
[2017-06-02] MEDS: MULTIVITAMINS (DAILY MVI) TABLET (FP) PO SCH (09:33)
[2017-06-02] MEDS: CALCIUM CARBONATE SUSPENSION - 500 MG/5 ML ML NGT SCH ×2 (09:33→21:33)
[2017-06-02] MEDS: TIOTROPIUM BROMIDE 18 MCG/INH (DEVICE W/ 5 CAPSULES) IH SCH (09:45)
--- NOTE | 2017-06-02 09:48 | CONSULT ---
Consult - text type - Consultation Consultation Note: Neurology History of Present Illness: 76 year old female who presented initially from the SNF with acute SOB. Upon seeing patient has been intubated secondary to hypercapneic respiratory failure per notes. Patient was recently discharged to SNF after hip replacement that was complicated by COPD exacerbation. Reportedly, was woken up by difficulty breathing and was brought here. In the ED she was noted to be tachypneic and had respiratory acidosis. BiPAP was attempted but patient was not improving and required intubation. Therafter, reportedly respiratory status improved to the point where she was able to have extubation. Thereafter had cardiac arrest and required resuscitation and revived. Respiratory failure required reintubation and patient in ICU in critical condition. Discussed with nurse and examined, patient does have brainstem reflexes. She does have pupil constriction, does have corneal reflex and gag reflex. Therefore, does not meet criteria for brain . However, higher order cognition remains limited. She is not arousable or conversive. She does not follow commands. She remains vent dependent, slightly overbreathing was at rate of 14 and she was at 18 during my visit. - Past Medical History Cardiovascular: Yes: HTN Pulmonary: Yes: COPD, Other (oxygen at home) Gastrointestinal: Yes: Other (History of ulcer disease diagnosed 3 years ago when patient presented with anemia) Renal/: Yes: UTI Heme/Onc: Yes: Anemia Musculoskeletal: Yes: Osteoarthritis - Past Surgical History Past Surgical History: Yes: None - Smoking History Smoking history: Current every day smoker Have you smoked in the past 12 months: No Aproximately how many cigarettes per day: 0 If you are a former smoker, when did you quit?: Over 15 years ago - Alcohol/Substance Use Hx Alcohol Use: No History of Substance Use: reports: None - Social History Usual Living Arrangement: Yes: Alone, Snf ADL: Independent 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 Formulary)] 1 udtab PO DAILY #0 tab 10/20/11 Ferrous Sulfate [Feosol] 325 mg PO TID 01/18/12 Calcium Carbonate/Vitamin D3 [Calcium 600-Vit D3 200 Tablet] 1 each PO DAILY 10/13 Docosahexanoic Acid/Epa [Fish Oil Softgel] 1 each PO DAILY 11/05/12 Potassium Chloride [K-Dur] 20 meq PO DAILY #0 tab.er.prt 11/05/12 Alendronate Sodium [Fosamax] 35 mg PO [facility] 09/01/15 Atorvastatin Ca [Lipitor] 10 mg PO HS 09/01/15 Latanoprost 0.005% Eye Drops [Xalatan 0.005% Eye Drops -] 1 drop OU HS 09/01/15 Diltiazem Cd [Cardizem Cd -] 120 mg PO BID cap.cd.24h 05/07/17 Enoxaparin [Lovenox -] 40 mg SQ DAILY disp.syrin 05/07/17 Loratadine [Claritin -] 10 mg PO DAILY tablet 05/07/17 Mineral Oil/Petrolat,Wht/Water [Eucerin (Small Jar) -] 1 applic TP DAILY jar Polyethylene Glycol 3350 [Miralax 119 gm Btl -] 17 gm PO BID bottle 05/07/17 Prednisone [Deltasone -] 10 mg PO DAILY tablet 05/07/17 Torsemide [Demadex -] 60 mg PO DAILY tablet 05/07/17 Acetaminophen [Tylenol .Regular Strength -] 650 mg PO Q6H PRN 05/25/17 Albuterol 2.5/Ipratropium 0.5 [Duoneb -] 1 amp IH QSHIFT 05/25/17 Ascorbic Acid [Vitamin C -] 500 mg PO TID 05/25/17 Chlorpheniramine/Dextromethorp [Robitussin Long-Acting Liq] 15 ml PO Q6H Docusate Sodium [Colace -] 300 mg PO HS 05/25/17 Menthol/Zinc Oxide [Calmoseptine Ointment] 71 gm TP QSHIFT 05/25/17 Nystatin Oral Suspension - [Nystatin Oral Susp 418319 Units/5 ML -] 500,000 units PO QID 05/25/17 Omeprazole Magnesium [Prilosec Otc] 20 mg PO DAILY 05/25/17 Sodium Chloride Nasal [place] [[place] Nasal [place]] 2 spray NS QSHIFT Family Disease History - Family Disease History Family Disease History: Heart Disease: Father, Other: Mother (Alzheimers Dementia) Review of Systems Unable to obtain ROS, reason: intubated Physical Examination Vital Signs: Vital Signs Temperature 37.9 C H 05/25/17 09:26 Pulse Rate 114 H 05/25/17 12:52 Respiratory Rate 16 05/25/17 12:52 Blood Pressure 113/69 05/25/17 12:52 O2 Sat by Pulse Oximetry (%) 100 05/25/17 12:52 Constitutional: Yes: Other (sedated) Eyes: Yes: Conjunctiva Clear, EOM Intact, PERRL HENT: Yes: Atraumatic, Normocephalic Cardiovascular: Yes: Tachycardia. No: Pulse Irregular, Gallop, Murmur, Rub Respiratory: Yes: Regular, CTA Bilaterally, Intubated, Mechanically Ventilated. No: Rales, Rhonchi, Wheezes Gastrointestinal: Yes: Normal Bowel Sounds, Soft. No: Distention, Tenderness Extremities: Yes: WNL Edema: No Labs: CBCD WBC 18.7 K/mm3 (4.0-10.0) H 06/02/17 05:15 RBC 3.49 M/mm3 (3.60-5.2) L 06/02/17 05:15 Hgb 9.1 GM/dL (10.7-15.3) L 06/02/17 05:15 Hct 28.8 % (32.4-45.2) L 06/02/17 05:15 MCV 82.4 fl (80-96) 06/02/17 05:15 MCHC 31.6 g/dl (32.0-36.0) L 06/02/17 05:15 RDW 21.4 % (11.6-15.6) H 06/02/17 05:15 Plt Count 159 K/MM3 (134-434) D 06/02/17 05:15 MPV 10.7 fl (7.5-11.1) 06/02/17 05:15 CMP Sodium 145 mmol/L (136-145) 06/02/17 05:15 Potassium 5.3 mmol/L (3.5-5.1) H 06/02/17 05:15 Chloride 111 mmol/L (98-107) H 06/02/17 05:15 Carbon Dioxide 21 mmol/L (21-32) 06/02/17 05:15 Anion Gap 13 (8-16) 06/02/17 05:15 BUN 112 mg/dL (7-18) H* 06/02/17 05:15 Creatinine 4.4 mg/dL (0.55-1.02) H 06/02/17 05:15 Creat Clearance w eGFR 9.73 (>60) 06/02/17 05:15 Calcium 6.0 mg/dL (8.5-10.1) L* 06/02/17 05:15 Total Bilirubin 0.6 mg/dL (0.2-1.0) D 06/02/17 05:15 AST 93 U/L (15-37) H 06/02/17 05:15 ALT 344 U/L (12-78) H 06/02/17 05:15 Alkaline Phosphatase 96 U/L (45-117) 06/02/17 05:15 Total Protein 4.9 g/dl (6.4-8.2) L 06/02/17 05:15 Albumin 2.0 g/dl (3.4-5.0) L 06/02/17 05:15 Plan 76 year old female who presented initially from the SNF with acute SOB. Upon seeing patient has been intubated secondary to hypercapneic respiratory failure per notes. Patient was recently discharged to SNF after hip replacement that was complicated by COPD exacerbation. Reportedly, was woken up by difficulty breathing and was brought here. In the ED she was noted to be tachypneic and had respiratory acidosis. BiPAP was attempted but patient was not improving and required intubation. Therafter, reportedly respiratory status improved to the point where she was able to have extubation. Thereafter had cardiac arrest and required resuscitation and revived. Respiratory failure required reintubation and patient in ICU in critical condition. Discussed with nurse and examined, patient does have brainstem reflexes. She does have pupil constriction, does have corneal reflex and gag reflex. Does not meet criteria for brain . However, higher order cognition remains limited. Not on sedation but still does not follow commands and nonverbal. Remains intubated and on mechanical ventilation At this point, further management would depend on goals of care Likely poor prognosis given her clinical condition and comorbidities Not likely to make meaningful recovery and be at function status she was before Likely to need trach, peg, and vent at least for immediate future if continued care desired Palliative care should be considered If further information needed, CT head can be completed, though clinically assessement as above Critical care time 50 mins
--- NOTE | 2017-06-02 10:48 | PN ---
Progress Note, Physician Chief Complaint: Unable to obtain, patient obtunded - Current Medication List Current Medications: Active Medications Acetaminophen (Tylenol Suppository -) 325 mg SD Q4H PRN PRN Reason: FEVER Acetaminophen (Ofirmev Injection -) 1,000 mg IVPB Q6H PRN PRN Reason: FEVER Albuterol Sulfate (Ventolin 0.083% Nebulizer Soln -) 1 amp NEB Q4H PRN PRN Reason: SHORT OF BREATH/WHEEZING Last Admin: 05/28/17 08:07 Dose: 1 amp Atorvastatin Calcium (Lipitor -) 10 mg PO HS [facility] Last Admin: 06/01/17 21:39 Dose: 10 mg Calcium Carbonate (Calcium Carb Oral Suspension -) 500 mg NGT BID [facility] Last Admin: 06/02/17 09:33 Dose: 500 mg Ferrous Sulfate (Feosol -) 325 mg PO TID [facility] Last Admin: 06/02/17 05:37 Dose: 325 mg Heparin Sodium (Porcine) (Heparin -) 5,000 unit SQ TID [facility] Last Admin: 06/02/17 05:37 Dose: 5,000 unit Piperacillin Sod/Tazobactam (Sod 2.25 gm/ Dextrose) 100 mls @ 100 mls/hr IVPB Q6H-IV [facility] Last Admin: 06/02/17 09:32 Dose: 100 mls/hr Latanoprost (Xalatan 0.005% Eye Drops -) 1 drop OU [facility] Last Admin: 06/01/17 21:39 Dose: 1 drop Loratadine (Claritin -) 10 mg PO DAILY [facility] Last Admin: 06/02/17 09:33 Dose: 10 mg Methylprednisolone Sodium Succinate (Solu-Medrol -) 40 mg IVPUSH Q6H-IV [facility] Last Admin: 06/02/17 09:32 Dose: 40 mg Montelukast Sodium (Singulair -) 10 mg PO [facility] Last Admin: 06/01/17 21:39 Dose: 10 mg Multivitamins/Minerals/Vitamin C (Tab-A-Vit -) 1 tab PO DAILY [facility] Last Admin: 06/02/17 09:33 Dose: 1 tab Pantoprazole Sodium (Protonix Iv) 40 mg IVPUSH DAILY [facility] Last Admin: 06/02/17 09:32 Dose: 40 mg Sevelamer Carbonate (Renvela Powder Packet -) 0.8 gm NGT Q8H [facility] Tiotropium [place] (Spiriva -) 1 puff IH DAILY [facility] Last Admin: 06/02/17 09:45 Dose: Not Given - Objective Vital Signs: Vital Signs Temperature 37.4 C 06/02/17 08:55 Pulse Rate 103 H 06/02/17 09:02 Respiratory Rate 14 06/02/17 09:02 Blood Pressure 117/72 06/02/17 08:55 O2 Sat by Pulse Oximetry (%) 99 06/02/17 09:02 Constitutional: Yes: Other (obtunded) Cardiovascular: Yes: Regular Rate and Rhythm. No: Gallop, Murmur, Rub Respiratory: Yes: CTA Bilaterally, Intubated, Mechanically Ventilated, Tachypnea. No: Rales, Rhonchi, Wheezes Gastrointestinal: Yes: Normal Bowel Sounds, Soft. No: Distention, Tenderness Extremities: Yes: WNL Edema: Yes Edema: LUE: 1+, RUE: 1+, LLE: 1+, RLE: 1+ Labs: CBC, BMP 06/02/17 05:15 06/02/17 05:15 INR, PTT INR 0.95 (0.82-1.09) 05/28/17 09:50 Problem List - Problems (1) Asystole Code(s): I46.9 - CARDIAC ARREST, CAUSE UNSPECIFIED (2) Lactic acid acidosis Code(s): E87.2 - ACIDOSIS (3) Hemodynamic instability Code(s): R09.89 - OTH SYMPTOMS AND SIGNS INVOLVING THE CIRC AND RESP SYSTEMS (4) Shock liver Code(s): K72.00 - ACUTE AND SUBACUTE HEPATIC FAILURE WITHOUT COMA (5) RSV (respiratory syncytial virus pneumonia) Code(s): J12.1 - RESPIRATORY SYNCYTIAL VIRUS PNEUMONIA (6) Acute and chronic respiratory failure with hypercapnia Code(s): J96.22 - ACUTE AND CHRONIC RESPIRATORY FAILURE WITH HYPERCAPNIA (7) COPD exacerbation Code(s): J44.1 - CHRONIC OBSTRUCTIVE PULMONARY DISEASE W (ACUTE) EXACERBATION (8) CHF (congestive heart failure) Code(s): I50.9 - HEART FAILURE, UNSPECIFIED Qualifiers: Congestive heart failure type: diastolic Congestive heart failure chronicity: chronic Qualified Code(s): I50.32 - Chronic diastolic (congestive ) heart failure (9) Fracture, hip Code(s): S72.009A - FRACTURE OF UNSP PART OF NECK OF UNSP FEMUR, INIT Qualifiers: Encounter type: initial encounter Fracture type: closed Laterality: left Qualified Code(s): S72.002A - Fracture of unspecified part of neck of left femur, initial encounter for closed fracture (10) Hypertension Code(s): I10 - ESSENTIAL (PRIMARY) HYPERTENSION Assessment/Plan (1) Asystolic cardiac arrest -heart now stable -however overall with poor prognosis -continues to be obtunded -case d/w neurology -minimal brain stem activity -very poor prognosis and expect minimal neurologic recovery (2) Acute and chronic hypoxic respiratory failure Assessment/Plan: -recurrent and cause of asystole -intubated and mechanically ventilated -pulmonary following and case discussed -to d/w family possible palliative extubation Code(s): J96.22 - ACUTE AND CHRONIC RESPIRATORY FAILURE WITH HYPERCAPNIA (3) COPD exacerbation Assessment/Plan: -continue steroids Code(s): J44.1 - CHRONIC OBSTRUCTIVE PULMONARY DISEASE W (ACUTE) EXACERBATION (3) CHF (congestive heart failure) Assessment/Plan: -currently hypotensive requiring pressors -off pressors -nephrology giving IV lasix for fluid overload Code(s): I50.9 - HEART FAILURE, UNSPECIFIED Qualifiers: Congestive heart failure type: diastolic Congestive heart failure chronicity: chronic Qualified Code(s): I50.32 - Chronic diastolic (congestive ) heart failure (4) Fracture, hip Assessment/Plan: -reason for being at SNF Code(s): S72.009A - FRACTURE OF UNSP PART OF NECK OF UNSP FEMUR, INIT Qualifiers: Encounter type: initial encounter Fracture type: closed Laterality: left Qualified Code(s): S72.002A - Fracture of unspecified part of neck of left femur, initial encounter for closed fracture (5) Hypertension Assessment/Plan: -off pressors Code(s): I10 - ESSENTIAL (PRIMARY) HYPERTENSION (6) Hypocalcemia -replaced as needed (7) Shock Liver -improving (8) Hemodynamic instability -improved, off pressors (9) Lactic acidosis -resolved (10) GORDO -continues to worsen but possibly plateauing -continue monitoring at this time (11) RSV pneumonia -continue zosyn per ID 32 minutes spent in critical care time Dispo -planning for family meeting at 2pm today to discuss goal of care
--- NOTE | 2017-06-02 11:44 | PN ---
Teaching Attending Note Name of Resident: Renita Islas ATTENDING PHYSICIAN STATEMENT I saw and evaluated the patient. I reviewed the resident's note and discussed the case with the resident. I agree with the resident's findings and plan as documented. SUBJECTIVE: Pt seen and examined in the ICU. Remains intubated, poorly responsive off sedation. Off pressors, not tolerating CPAP/PS trials. Given trial of lasix overnight with some urine output. CVP 8 this AM. OBJECTIVE: Last Vital Signs Temp Pulse Resp BP Pulse Ox 99.4 F 100 H 17 110/62 99 06/02/17 08:55 06/02/17 10:00 06/02/17 11:36 06/02/17 10:00 06/02/17 09:02 Intake & Output 05/30/17 05/31/17 06/01/17 06/02/17 23:59 23:59 23:59 23:59 Intake Total 2162.0 3010 1650 575 Output Total 450 600 850 300 Balance 1712.0 2410 800 275 Weight 60.3 kg 60.2 kg 61.7 kg 63.4 kg Gen: intubated, poorly responsive, tachypneic Heart: RRR Lung: bilateral rhonchi Abd: soft, nontender Ext: + edema CBC, BMP 06/02/17 05:15 06/02/17 05:15 Active Medications Acetaminophen (Tylenol Suppository -) 325 mg [place] Q4H PRN PRN Reason: FEVER Acetaminophen (Ofirmev Injection -) 1,000 mg IVPB Q6H PRN PRN Reason: FEVER Albuterol Sulfate (Ventolin 0.083% Nebulizer Soln -) 1 amp NEB Q4H PRN PRN Reason: SHORT OF BREATH/WHEEZING Last Admin: 05/28/17 08:07 Dose: 1 amp Atorvastatin Calcium (Lipitor -) 10 mg PO HS [facility] Last Admin: 06/01/17 21:39 Dose: 10 mg Calcium Carbonate (Calcium Carb Oral Suspension -) 500 mg NGT BID [facility] Last Admin: 06/02/17 09:33 Dose: 500 mg Ferrous Sulfate (Feosol -) 325 mg PO TID [facility] Last Admin: 06/02/17 05:37 Dose: 325 mg Furosemide (Lasix Injection -) 40 mg IVPUSH ONCE ONE Stop: 06/02/17 11:46 Heparin Sodium (Porcine) (Heparin -) 5,000 unit SQ TID [facility] Last Admin: 06/02/17 05:37 Dose: 5,000 unit Piperacillin Sod/Tazobactam (Sod 2.25 gm/ Dextrose) 100 mls @ 100 mls/hr IVPB Q6H-IV [facility] Last Admin: 06/02/17 09:32 Dose: 100 mls/hr Latanoprost (Xalatan 0.005% Eye Drops -) 1 drop OU HS [facility] Last Admin: 06/01/17 21:39 Dose: 1 drop Loratadine (Claritin -) 10 mg PO DAILY [facility] Last Admin: 06/02/17 09:33 Dose: 10 mg Methylprednisolone Sodium Succinate (Solu-Medrol -) 40 mg IVPUSH Q6H-IV [facility] Last Admin: 06/02/17 09:32 Dose: 40 mg Montelukast Sodium (Singulair -) 10 mg PO HS [facility] Last Admin: 06/01/17 21:39 Dose: 10 mg Multivitamins/Minerals/Vitamin C (Tab-A-Vit -) 1 tab PO DAILY [facility] Last Admin: 06/02/17 09:33 Dose: 1 tab Pantoprazole Sodium (Protonix Iv) 40 mg IVPUSH DAILY [facility] Last Admin: 06/02/17 09:32 Dose: 40 mg Sevelamer Carbonate (Renvela Powder Packet -) 0.8 gm NGT TID [facility] Tiotropium [place] (Spiriva -) 1 puff IH DAILY [facility] Last Admin: 06/02/17 09:45 Dose: Not Given ASSESSMENT AND PLAN: Acute Hypoxic and Hypercapneic Respiratory Failure Likely Anoxic Encephalopathy Pneumonia UTI Septic Shock Acute Kidney Injury Elevated LFTs likely Ischemic Injury +Troponins likely [place] Ischemia Acute COPD Exacerbation LV Diastolic Dysfunction Pulmonary HTN - continue antibiotics - f/u cultures - continue medrol at current dose - inhaled bronchodilators standing and PRN - keep CVP 8-12 - lasix as needed - monitor urine output, creatinine - off pressors, maintain MAP >65 - hold sedation to assess mental status - spontaneous breathing trials as tolerated when mental status improved - enteral feeds - DVT/GI prophylaxis - continue ICU monitoring - poor prognosis, continue discussions regarding goals of care critical care time spent in reviewing chart, evaluating patient and formulating plan 35 min
[2017-06-02] MEDS ORDERED: FUROSEMIDE 40 MG/4 ML INJECTABLE VIAL IVPUSH ONE (11:45)
--- NOTE | 2017-06-02 11:48 | PN ---
Physical Exam: SUBJECTIVE: Patient seen and examined. She is not waking up, following commands. On mechanical ventilation. OBJECTIVE: Vital Signs Period Temp Pulse Resp BP Sys/Ellis Pulse Ox Last 24 Hr 98.2 F-99.4 F 86-105 14-17 108-137/62-78 96-99 GENERAL: The patient is intubated, on mechanical ventilation. HEAD: Normal with no signs of trauma. EYES: sclera anicteric, conjunctiva clear, EOMI not assessed. ENT: oropharynx clear without exudates, moist mucous membranes. NECK: Trachea midline, full range of motion, supple. LUNGS: Breath sounds equal, coarse breath sounds, no wheezes, cracklesm, no accessory muscle use. HEART: Regular rate and rhythm, S1, S2 without murmur, rub or gallop. ABDOMEN: Soft, nontender, nondistended, normoactive bowel sounds, no guarding, no rebound, no hepatosplenomegaly, no masses. EXTREMITIES: 2+ pulses, warm, no peripheral edema in LE, 1+ edema in upper extremities. NEUROLOGICAL: Unresponsive, not following commands PSYCH: Normal mood, normal affect. SKIN: Warm, dry, normal turgor, no rashes. Laboratory Results - last 24 hr 06/02/17 06/02/17 05:15 05:15 WBC 18.7 H RBC 3.49 L Hgb 9.1 L Hct 28.8 L MCV 82.4 MCH 26.1 MCHC 31.6 L RDW 21.4 H Plt Count 159 D MPV 10.7 Neutrophils % 93.2 H Lymphocytes % 1.6 L D Monocytes % 5.1 Eosinophils % 0.0 Basophils % 0.1 Sodium 145 Potassium 5.3 H Chloride 111 H Carbon Dioxide 21 Anion Gap 13 BUN 112 H* Creatinine 4.4 H Creat Clearance w eGFR 9.73 Random Glucose 169 H Calcium 6.0 L* Phosphorus 7.2 H Magnesium 3.0 H Total Bilirubin 0.6 D AST 93 H ALT 344 H Alkaline Phosphatase 96 Total Protein 4.9 L Albumin 2.0 L Active Medications Generic Name Dose Route Start Last Admin Trade Name Freq PRN Reason Stop Dose Admin Acetaminophen 325 mg 05/27/17 12:22 Tylenol Suppository - [place] Q4H PRN FEVER Acetaminophen 1,000 mg 05/29/17 02:10 Ofirmev Injection - IVPB Q6H PRN FEVER Albuterol Sulfate 1 amp 05/27/17 12:22 05/28/17 08:07 Ventolin 0.083% Nebulizer Soln - NEB 1 amp Q4H PRN Administration SHORT OF BREATH/WHEEZING Atorvastatin Calcium 10 mg 05/27/17 22:00 06/01/17 21:39 Lipitor - PO 10 mg HS JEANNA Administration Calcium Carbonate 500 mg 06/01/17 10:00 06/02/17 09:33 Calcium Carb Oral Suspension - NGT 500 mg BID JEANNA Administration Ferrous Sulfate 325 mg 05/27/17 22:00 06/02/17 05:37 Feosol - PO 325 mg TID JEANNA Administration Heparin Sodium (Porcine) 5,000 unit 05/31/17 14:00 06/02/17 05:37 Heparin - SQ 5,000 unit TID JEANNA Administration Piperacillin Sod/Tazobactam 100 mls @ 100 mls/hr 05/29/17 13:33 06/02/17 09: 32 Sod 2.25 gm/ Dextrose IVPB 100 mls/hr Q6H-IV JEANNA Administration Latanoprost 1 drop 05/27/17 22:00 06/01/17 21:39 Xalatan 0.005% Eye Drops - OU 1 drop HS JEANNA Administration Loratadine 10 mg 05/28/17 10:00 06/02/17 09:33 Claritin - PO 10 mg DAILY JEANNA Administration Methylprednisolone Sodium Succinate 40 mg 05/27/17 15:00 06/02/17 09:32 Solu-Medrol - IVPUSH 40 mg Q6H-IV JEANNA Administration Montelukast Sodium 10 mg 05/27/17 22:00 06/01/17 21:39 Singulair - PO 10 mg HS JEANNA Administration Multivitamins/Minerals/Vitamin C 1 tab 05/28/17 10:00 06/02/17 09:33 Tab-A-Vit - PO 1 tab DAILY JEANNA Administration Pantoprazole Sodium 40 mg 05/28/17 10:00 06/02/17 09:32 Protonix Iv IVPUSH 40 mg DAILY JEANNA Administration Sevelamer Carbonate 0.8 gm 06/02/17 14:00 Renvela Powder Packet - NGT TID [facility] Tiotropium [place] 1 puff 05/28/17 10:00 06/02/17 09:45 Spiriva - IH Not Given DAILY JEANNA ASSESSMENT/PLAN: The patient is a 76 year old female with a history of COPD, CHF, recent hip fx and replacement 04/18 who presented with acute respiratory failure and readmitted to the ICU s/p cardiac arrest x2 on the medicine floor. NEURO the pt is not waking up when off sedation, not following commands neurology evaluation will continue to monitor CV Patient is now stable off pressors, no acute events on monitoring manager troponins-normalized RESP Acute respiratory failure following a cardiac arrest Possible aspiration pneumonia, will continue Zosyn. CXR not changed today, rib fractures after cardiac compressions. Continue solu-medrol 40 mg Q6h, Singulair 10 mg HS maintain the patient on the ventilator, Fio2 40 %, PEEP 5, rate 14 GI elevated liver enzymes, AST 93, ALT 344 will monitor, avoid toxic meds NG tube with feeds Osmolite 1/2 Renal Worsening bun/creatinine 112/4.4 with decreased urine output. Given 40 mg of laasix yesterday with 700 ml urine output. Will give one dose of lasix 40 mg today and Renevela 0.8 mg TID f/u nephrology recommendations will continue to monitor avoid nephrotoxic substances ID Continue Zosyn, WBC coming down, today 18, no fever, blood cultures negative CXR unchanged Follow recs from ID FEN/GI no fluids/low Ca, corrected 7.6/tube feeds PPX Heparin 500 u TID Protonix 40 IV daily for GI ppx DISPO: Continue ICU level of care. Family notified. Her daughter is coming from [place] today. Visit type - Emergency Visit Emergency Visit: Yes ED Registration Date: 05/25/17 Care time: The patient presented to the Emergency Department on the above date and was hospitalized for further evaluation of their emergent condition. - New Patient This patient is new to me today: No - Critical Care Critical Care patient: Yes Total Critical Care Time (in minutes): 40 Critical Care Statement: The care of this patient involved high complexity decision making to prevent further life threatening deterioration of the patient 's condition and/or to evaluate & treat vital organ system(s) failure or risk of failure.
--- NOTE | 2017-06-02 13:10 | PN ---
Progress Note (short form) - Note Progress Note: Renal follow up for GORDO Pt seen and examined in the ICU on vent off pressers improved urine output s/p Lasix yesterday no overnight events BP stable Pt still remains unresponsive Vital Signs Temperature 98.8 F 06/02/17 11:54 Pulse Rate 97 H 06/02/17 11:54 Respiratory Rate 16 06/02/17 11:54 Blood Pressure 109/62 06/02/17 11:54 O2 Sat by Pulse Oximetry (%) 99 06/02/17 09:02 Intake & Output 05/30/17 05/31/17 06/01/17 06/02/17 23:59 23:59 23:59 23:59 Intake Total 2162.0 3010 1650 575 Output Total 450 600 850 300 Balance 1712.0 2410 800 275 Weight 60.3 kg 60.2 kg 61.7 kg 63.4 kg NAD on Vent via ET tube Dec BS b/l lung kwok RRR soft NT/ND trace to 1+ LE edema 2+ UE edema Moreau in place CBC, BMP 06/02/17 05:15 06/02/17 05:15 Current Medications Acetaminophen (Tylenol Suppository -) 325 mg [place] Q4H PRN PRN Reason: FEVER Acetaminophen (Ofirmev Injection -) 1,000 mg IVPB Q6H PRN PRN Reason: FEVER Albuterol Sulfate (Ventolin 0.083% Nebulizer Soln -) 1 amp NEB Q4H PRN PRN Reason: SHORT OF BREATH/WHEEZING Last Admin: 05/28/17 08:07 Dose: 1 amp Atorvastatin Calcium (Lipitor -) 10 mg PO HS JEANNA Last Admin: 06/01/17 21:39 Dose: 10 mg Calcium Carbonate (Calcium Carb Oral Suspension -) 500 mg NGT BID JEANNA Last Admin: 06/02/17 09:33 Dose: 500 mg Ferrous Sulfate (Feosol -) 325 mg PO TID JEANNA Last Admin: 06/02/17 05:37 Dose: 325 mg Heparin Sodium (Porcine) (Heparin -) 5,000 unit SQ TID JEANNA Last Admin: 06/02/17 05:37 Dose: 5,000 unit Piperacillin Sod/Tazobactam (Sod 2.25 gm/ Dextrose) 100 mls @ 100 mls/hr IVPB Q6H-IV JEANNA Last Admin: 06/02/17 09:32 Dose: 100 mls/hr Latanoprost (Xalatan 0.005% Eye Drops -) 1 drop OU HS [facility] Last Admin: 06/01/17 21:39 Dose: 1 drop Loratadine (Claritin -) 10 mg PO DAILY [facility] Last Admin: 06/02/17 09:33 Dose: 10 mg Methylprednisolone Sodium Succinate (Solu-Medrol -) 40 mg IVPUSH Q6H-IV [facility] Last Admin: 06/02/17 09:32 Dose: 40 mg Montelukast Sodium (Singulair -) 10 mg PO HS [facility] Last Admin: 06/01/17 21:39 Dose: 10 mg Multivitamins/Minerals/Vitamin C (Tab-A-Vit -) 1 tab PO DAILY [facility] Last Admin: 06/02/17 09:33 Dose: 1 tab Pantoprazole Sodium (Protonix Iv) 40 mg IVPUSH DAILY [facility] Last Admin: 06/02/17 09:32 Dose: 40 mg Sevelamer Carbonate (Renvela Powder Packet -) 0.8 gm NGT TID [facility] Tiotropium [place] (Spiriva -) 1 puff IH DAILY [facility] Last Admin: 06/02/17 09:45 Dose: Not Given 76 year old woman with PMhx of COPD who presented with hypercarbic respiratory failure requring intubation complicated by cardiac arrest now with GORDO with Cr of 3.3. Pt with 2 arrests on 05/28. #Acute Renal Failure s/p cardiac arrest Urine studies and clinical course are consistent with ATN from renal hypoprofusion hydronephrosis noted on CT, chronic finding and less likely contributing to renal dysfunction now pt is responsive to IV lasix, will give 40mg IV now and reacess for additional diuretics later today change tube fees to suplena/nephro to minimize potassium/phos start renvela via NGT Ternd BUN/Cr and electrolytes no acute indication for DIALYSIS TECH at this time pt would be poor candiate for DIALYSIS TECH given poor MS BUN very high but also likely affected by steroids dose all meds for CrCl less then 10 #Cardiac Arrest/COPD/Resp Failure continue ICU care Prognosis is guarded Spoke to son over the phone and explained the current status Philippe Szymanski DO
--- NOTE | 2017-06-02 16:19 | PN ---
Progress Note, Physician History of Present Illness: continues to be intubated sedated no response off of sedation wbc trending down - Current Medication List Current Medications: Active Medications Acetaminophen (Tylenol Suppository -) 325 mg [place] Q4H PRN PRN Reason: FEVER Acetaminophen (Ofirmev Injection -) 1,000 mg IVPB Q6H PRN PRN Reason: FEVER Albuterol Sulfate (Ventolin 0.083% Nebulizer Soln -) 1 amp NEB Q4H PRN PRN Reason: SHORT OF BREATH/WHEEZING Last Admin: 05/28/17 08:07 Dose: 1 amp Atorvastatin Calcium (Lipitor -) 10 mg PO HS [facility] Last Admin: 06/01/17 21:39 Dose: 10 mg Calcium Carbonate (Calcium Carb Oral Suspension -) 500 mg NGT BID [facility] Last Admin: 06/02/17 09:33 Dose: 500 mg Ferrous Sulfate (Feosol -) 325 mg PO TID [facility] Last Admin: 06/02/17 05:37 Dose: 325 mg Heparin Sodium (Porcine) (Heparin -) 5,000 unit SQ TID [facility] Last Admin: 06/02/17 05:37 Dose: 5,000 unit Piperacillin Sod/Tazobactam (Sod 2.25 gm/ Dextrose) 100 mls @ 100 mls/hr IVPB Q6H-IV [facility] Last Admin: 06/02/17 09:32 Dose: 100 mls/hr Latanoprost (Xalatan 0.005% Eye Drops -) 1 drop OU [facility] Last Admin: 06/01/17 21:39 Dose: 1 drop Loratadine (Claritin -) 10 mg PO DAILY [facility] Last Admin: 06/02/17 09:33 Dose: 10 mg Methylprednisolone Sodium Succinate (Solu-Medrol -) 40 mg IVPUSH Q6H-IV [facility] Last Admin: 06/02/17 09:32 Dose: 40 mg Montelukast Sodium (Singulair -) 10 mg PO [facility] Last Admin: 06/01/17 21:39 Dose: 10 mg Multivitamins/Minerals/Vitamin C (Tab-A-Vit -) 1 tab PO DAILY [facility] Last Admin: 06/02/17 09:33 Dose: 1 tab Pantoprazole Sodium (Protonix Iv) 40 mg IVPUSH DAILY [facility] Last Admin: 06/02/17 09:32 Dose: 40 mg Sevelamer Carbonate (Renvela Powder Packet -) 0.8 gm NGT TID JEANNA Tiotropium [place] (Spiriva -) 1 puff IH DAILY JEANNA Last Admin: 06/02/17 09:45 Dose: Not Given - Objective Vital Signs: Vital Signs Temperature 98.8 F 06/02/17 14:00 Pulse Rate 100 H 06/02/17 15:14 Respiratory Rate 17 06/02/17 16:04 Blood Pressure 136/70 06/02/17 15:14 O2 Sat by Pulse Oximetry (%) 100 06/02/17 15:00 Constitutional: Yes: Other Cardiovascular: Yes: Regular Rate and Rhythm Respiratory: Yes: Intubated, Mechanically Ventilated Gastrointestinal: Yes: Normal Bowel Sounds, Soft Neurological: Yes: Other Psychiatric: Yes: Other Labs: CBC, BMP 06/02/17 05:15 06/02/17 05:15 INR, PTT INR 0.95 (0.82-1.09) 05/28/17 09:50 Assessment/Plan Problem List - Problems (1) Acute and chronic respiratory failure with hypercapnia Code(s): J96.22 - ACUTE AND CHRONIC RESPIRATORY FAILURE WITH HYPERCAPNIA (2) COPD exacerbation Code(s): J44.1 - CHRONIC OBSTRUCTIVE PULMONARY DISEASE W (ACUTE) EXACERBATION (3) CHF (congestive heart failure) Code(s): I50.9 - HEART FAILURE, UNSPECIFIED Qualifiers: Congestive heart failure type: diastolic Congestive heart failure chronicity: chronic Qualified Code(s): I50.32 - Chronic diastolic (congestive ) heart failure (4) Fracture, hip Code(s): S72.009A - FRACTURE OF UNSP PART OF NECK OF UNSP FEMUR, INIT Qualifiers: Encounter type: initial encounter Fracture type: closed Laterality: left Qualified Code(s): S72.002A - Fracture of unspecified part of neck of left femur, initial encounter for closed fracture (5) Hypertension Code(s): I10 - ESSENTIAL (PRIMARY) HYPERTENSION 6 pneumonia 7 leukocytosis 8 uti plan plan continue abx supportive measures nutrition rest as per icu patient continues to be critical cc time 40 min
[2017-06-02] MEDS ORDERED: PT OWN MED DRAWER 7, Y5N ONE ×2 (16:50→20:10)
[2017-06-02] MEDS: SEVELAMER CARBONATE 0.8 GM POWDER PACKET NGT SCH ×2 (16:51→21:32)
[2017-06-02 19:24] LABS: ANION GAP 15 (8-16); CHLORIDE 110 mmol/L (98-107); CO2 20 mmol/L (21-32); CREATININE 4.7 mg/dL (0.55-1.02); GLUCOSE,RANDOM 204 mg/dL (74-106); SODIUM 145 mmol/L (136-145)
[2017-06-02 19:27] LABS: BLOOD UREA NITROGEN 116 mg/dL (7-18); CALCIUM 6.1 mg/dL (8.5-10.1)
[2017-06-02] MEDS: LATANOPROST 0.005% OPHTH SOLN 2.5ML BOTTLE OU SCH (21:32)
[2017-06-02] MEDS: MONTELUKAST NA 10 MG TABLET PO SCH (21:32)
[2017-06-02] MEDS: ATORVASTATIN CA 10 MG TABLET (FP) PO SCH (21:32)
[2017-06-03] MEDS: methylPREDNISolone NA SUCC 40 MG/1 ML VIAL IVPUSH SCH ×4 (02:14→20:20)
[2017-06-03] MEDS: PIPERACILLIN/TAZOB 2.25 GM 2.25 GM in DEXTROSE 5%-WATER - 100 ML IVPB SCH ×4 (02:15→20:19)
[2017-06-03] MEDS: FERROUS SO4 325 MG TABLET (FP) PO SCH ×3 (06:01→21:25)
[2017-06-03] MEDS: HEPARIN NA (PORCINE) 5,000 UNITS/ML 1ML VIAL SQ SCH ×3 (06:01→21:25)
[2017-06-03] MEDS: SEVELAMER CARBONATE 0.8 GM POWDER PACKET NGT SCH ×3 (06:02→21:26)
[2017-06-03 06:23] LABS: HEMOGLOBIN 8.8 GM/dL (10.7-15.3); MCH 25.9 pg (25.7-33.7); MCHC 31.4 g/dl (32.0-36.0); MEAN CELL VOLUME 82.3 fl (80-96); MEAN PLT VOLUME 10.7 fl (7.5-11.1); PLATELET COUNT 151 K/MM3 (134-434); RBC 3.41 M/mm3 (3.60-5.2); RDW 21.4 % (11.6-15.6); WHITE BLOOD COUNT 19.2 K/mm3 (4.0-10.0)
[2017-06-03 06:44] LABS: ALBUMIN 1.9 g/dl (3.4-5.0); ANION GAP 14 (8-16); CHLORIDE 110 mmol/L (98-107); CO2 21 mmol/L (21-32); CREATININE 4.9 mg/dL (0.55-1.02); GLUCOSE,RANDOM 220 mg/dL (74-106); SGOT/AST 64 U/L (15-37); SGPT/ALT 242 U/L (12-78); SODIUM 145 mmol/L (136-145)
[2017-06-03 06:46] LABS: ALK PHOS 99 U/L (45-117); BILIRUBIN,TOTAL 0.5 mg/dL (0.2-1.0); TOT PROT 4.7 g/dl (6.4-8.2)
[2017-06-03 07:24] LABS: BLOOD UREA NITROGEN 124 mg/dL (7-18)
--- NOTE | 2017-06-03 08:37 | PN ---
Physical Exam: SUBJECTIVE: Patient seen and examined The patient is a 76 year old female with a history of COPD, CHF, recent hip Fx and replacement 04/18 c/b COPD exacerbation who presented with acute respiratory failure readmitted to the ICU following a cardiac arrest event. Patient continues to be unresponsive on exam. Plan to have family meeting today to discuss goals of care. Otherwise no acute events overnight. OBJECTIVE: Vital Signs Period Temp Pulse Resp BP Sys/Ellis Pulse Ox Last 24 Hr 98.2 F-99.4 F 78-104 14-26 109-148/62-80 96-100 GENERAL: The patient is intubated, in no acute distress. HEAD: Normal with no signs of trauma. EYES: sclera anicteric, conjunctiva clear. No ptosis. ENT: oropharynx clear without exudates, moist mucous membranes. NECK: Trachea midline, full range of motion, supple. LUNGS: Breath sounds equal, Course crackles auscultated on the right, no wheezes , no accessory muscle use. HEART: Regular rate and rhythm, S1, S2 without murmur, rub or gallop. ABDOMEN: Soft, nontender, nondistended, normoactive bowel sounds, no guarding, no rebound, no hepatosplenomegaly, no masses. EXTREMITIES: 2+ pulses, warm, well-perfused, 2+ edema noted. NEUROLOGICAL: Unresponsive. gait not observed. PSYCH: Normal mood, normal affect. SKIN: Warm, dry, normal turgor, no rashes or lesions noted Laboratory Results - last 24 hr 06/02/17 06/03/17 06/03/17 18:00 05:10 05:10 WBC 19.2 H RBC 3.41 L Hgb 8.8 L Hct 28.0 L MCV 82.3 MCH 25.9 MCHC 31.4 L RDW 21.4 H Plt Count 151 MPV 10.7 Neutrophils % No Result Required. Lymphocytes % No Result Required. Sodium 145 145 Potassium 5.0 5.0 Chloride 110 H 110 H Carbon Dioxide 20 L 21 Anion Gap 15 14 BUN 116 H* 124 H* Creatinine 4.7 H 4.9 H Creat Clearance w eGFR 8.59 Random Glucose 204 H 220 H Calcium 6.1 L* 6.0 L* Total Bilirubin 0.5 AST 64 H ALT 242 H Alkaline Phosphatase 99 Total Protein 4.7 L Albumin 1.9 L Active Medications Generic Name Dose Route Start Last Admin Trade Name Freq PRN Reason Stop Dose Admin Acetaminophen 325 mg 05/27/17 12:22 Tylenol Suppository - [place] Q4H PRN FEVER Acetaminophen 1,000 mg 05/29/17 02:10 Ofirmev Injection - IVPB Q6H PRN FEVER Albuterol Sulfate 1 amp 05/27/17 12:22 05/28/17 08:07 Ventolin 0.083% Nebulizer Soln - NEB 1 amp Q4H PRN Administration SHORT OF BREATH/WHEEZING Atorvastatin Calcium 10 mg 05/27/17 22:00 06/02/17 21:32 Lipitor - PO 10 mg HS JEANNA Administration Calcium Carbonate 500 mg 06/01/17 10:00 06/02/17 21:33 Calcium Carb Oral Suspension - NGT 500 mg BID JEANNA Administration Ferrous Sulfate 325 mg 05/27/17 22:00 06/03/17 06:01 Feosol - PO 325 mg TID JEANNA Administration Heparin Sodium (Porcine) 5,000 unit 05/31/17 14:00 06/03/17 06:01 Heparin - SQ 5,000 unit TID JEANNA Administration Piperacillin Sod/Tazobactam 100 mls @ 100 mls/hr 05/29/17 13:33 06/03/17 02: 15 Sod 2.25 gm/ Dextrose IVPB 100 mls/hr Q6H-IV JEANNA Administration Latanoprost 1 drop 05/27/17 22:00 06/02/17 21:32 Xalatan 0.005% Eye Drops - OU 1 drop HS JEANNA Administration Loratadine 10 mg 05/28/17 10:00 06/02/17 09:33 Claritin - PO 10 mg DAILY JEANNA Administration Methylprednisolone Sodium Succinate 40 mg 05/27/17 15:00 06/03/17 02:14 Solu-Medrol - IVPUSH 40 mg Q6H-IV JEANNA Administration Montelukast Sodium 10 mg 05/27/17 22:00 06/02/17 21:32 Singulair - PO 10 mg HS JEANNA Administration Multivitamins/Minerals/Vitamin C 1 tab 05/28/17 10:00 06/02/17 09:33 Tab-A-Vit - PO 1 tab DAILY JEANNA Administration Pantoprazole Sodium 40 mg 05/28/17 10:00 06/02/17 09:32 Protonix Iv IVPUSH 40 mg DAILY JEANNA Administration Sevelamer Carbonate 0.8 gm 06/02/17 14:00 06/03/17 06:02 Renvela Powder Packet - NGT 0.8 gm TID JEANNA Administration Tiotropium [place] 1 puff 05/28/17 10:00 06/02/17 09:45 Spiriva - IH Not Given DAILY JEANNA ASSESSMENT/PLAN: The patient is a 76 year old female with a history of COPD, CHF, recent hip Fx and replacement 04/18 c/b COPD exacerbation who presented with acute respiratory failure readmitted to the ICU following a cardiac arrest event. NEURO Patient remains minimally responsive off sedation. -Patient has continued to remain un-responsive off sedation for 72 hours. -Will continue to monitor. CV #Hypotension (Improved) -Patient now stable off pressors. -Will continue to monitor. #Elevated troponin (Improved) -Now downtrending. RESP #Acute respiratory failure Patient now re-intubated following a cardiac arrest earlier today. Chest plain film demonstrates right sided rib fractures likely due to chest compressions. It is likely the patient aspirated leading to a respiratory arrest that led to the cardiac arrest. -Will cover the patient with zosyn. -Continue solu-medrol. -Will maintain the patient on the ventilator. -Will continue to monitor. GI -NG tube with feeds. Renal #GORDO -Worsening bun/creatinine with some urine output after lasix. -Will continue to monitor bun/creatinine. ID #Pneumonia vs. Influenza vs. RSV -Continue zosyn. -Re-culture if patient spikes a temp. -Follow recs from ID [id number] No issues currently FEN/GI -Replete electrolytes PRN, will monitor -Discontinue IV fluids. -Tube feeds. PPX -Lovenox 40 sq daily -Protonix 40 IV daily for GI ppx DISPO: Continue ICU level of care. Visit type - Emergency Visit Emergency Visit: No - New Patient This patient is new to me today: No - Critical Care Critical Care patient: Yes Total Critical Care Time (in minutes): 35 Critical Care Statement: The care of this patient involved high complexity decision making to prevent further life threatening deterioration of the patient 's condition and/or to evaluate & treat vital organ system(s) failure or risk of failure.
[2017-06-03] MEDS ORDERED: PT OWN MED DRAWER 7, Y5N ONE ×2 (09:10→15:58)
[2017-06-03] MEDS: PANTOPRAZOLE SODIUM 40 MG VIAL IVPUSH SCH (09:46)
[2017-06-03] MEDS: LORATADINE 10 MG TABLET PO SCH (09:46)
[2017-06-03] MEDS: MULTIVITAMINS (DAILY MVI) TABLET (FP) PO SCH (09:46)
[2017-06-03] MEDS: TIOTROPIUM BROMIDE 18 MCG/INH (DEVICE W/ 5 CAPSULES) IH SCH (09:47)
[2017-06-03] MEDS: CALCIUM CARBONATE SUSPENSION - 500 MG/5 ML ML NGT SCH ×2 (09:57→21:26)
--- NOTE | 2017-06-03 10:16 | PN ---
Progress Note (short form) - Note Progress Note: Neurology History of Present Illness: 76 year old female who presented initially from the SNF with acute SOB. Upon seeing patient has been intubated secondary to hypercapneic respiratory failure per notes. Patient was recently discharged to SNF after hip replacement that was complicated by COPD exacerbation. Reportedly, was woken up by difficulty breathing and was brought here. In the ED she was noted to be tachypneic and had respiratory acidosis. BiPAP was attempted but patient was not improving and required intubation. Therafter, reportedly respiratory status improved to the point where she was able to have extubation. Thereafter had cardiac arrest and required resuscitation and revived. Respiratory failure required reintubation and patient in ICU in critical condition. Discussed with nurse and resident and examined, patient does have brainstem reflexes. She does have pupil constriction , does have corneal reflex and gag reflex. Therefore, does not meet criteria for brain . However, higher order cognition remains limited. She is not arousable or conversive. She does not follow commands. She remains vent dependent, not overbreathing vent at rate of 14. Active Medications Acetaminophen (Tylenol Suppository -) 325 mg [place] Q4H PRN PRN Reason: FEVER Acetaminophen (Ofirmev Injection -) 1,000 mg IVPB Q6H PRN PRN Reason: FEVER Albuterol Sulfate (Ventolin 0.083% Nebulizer Soln -) 1 amp NEB Q4H PRN PRN Reason: SHORT OF BREATH/WHEEZING Last Admin: 05/28/17 08:07 Dose: 1 amp Atorvastatin Calcium (Lipitor -) 10 mg PO HS [facility] Last Admin: 06/02/17 21:32 Dose: 10 mg Calcium Carbonate (Calcium Carb Oral Suspension -) 500 mg NGT BID [facility] Last Admin: 06/03/17 09:57 Dose: 500 mg Ferrous Sulfate (Feosol -) 325 mg PO TID [facility] Last Admin: 06/03/17 06:01 Dose: 325 mg Heparin Sodium (Porcine) (Heparin -) 5,000 unit SQ TID [facility] Last Admin: 06/03/17 06:01 Dose: 5,000 unit Piperacillin Sod/Tazobactam (Sod 2.25 gm/ Dextrose) 100 mls @ 100 mls/hr IVPB Q6H-IV [facility] Last Admin: 06/03/17 09:56 Dose: 100 mls/hr Latanoprost (Xalatan 0.005% Eye Drops -) 1 drop OU HS [facility] Last Admin: 06/02/17 21:32 Dose: 1 drop Loratadine (Claritin -) 10 mg PO DAILY [facility] Last Admin: 06/03/17 09:46 Dose: 10 mg Methylprednisolone Sodium Succinate (Solu-Medrol -) 40 mg IVPUSH Q6H-IV [facility] Last Admin: 06/03/17 09:45 Dose: 40 mg Montelukast Sodium (Singulair -) 10 mg PO HS [facility] Last Admin: 06/02/17 21:32 Dose: 10 mg Multivitamins/Minerals/Vitamin C (Tab-A-Vit -) 1 tab PO DAILY [facility] Last Admin: 06/03/17 09:46 Dose: 1 tab Pantoprazole Sodium (Protonix Iv) 40 mg IVPUSH DAILY [facility] Last Admin: 06/03/17 09:46 Dose: 40 mg Sevelamer Carbonate (Renvela Powder Packet -) 0.8 gm NGT TID [facility] Last Admin: 06/03/17 06:02 Dose: 0.8 gm Tiotropium [place] (Spiriva -) 1 puff IH DAILY [facility] Last Admin: 06/03/17 09:47 Dose: Not Given Physical Examination Vital Signs Temperature 98.8 F 06/03/17 09:40 Pulse Rate 76 06/03/17 09:40 Respiratory Rate 18 06/03/17 09:40 Blood Pressure 122/75 06/03/17 09:40 O2 Sat by Pulse Oximetry (%) 99 06/03/17 08:15 Constitutional: Yes: Other (sedated) Eyes: Yes: Conjunctiva Clear, EOM Intact, PERRL HENT: Yes: Atraumatic, Normocephalic Cardiovascular: Yes: Tachycardia. No: Pulse Irregular, Gallop, Murmur, Rub Respiratory: Yes: Regular, CTA Bilaterally, Intubated, Mechanically Ventilated. No: Rales, Rhonchi, Wheezes Gastrointestinal: Yes: Normal Bowel Sounds, Soft. No: Distention, Tenderness Extremities: Yes: WNL Edema: No CBCD WBC 19.2 K/mm3 (4.0-10.0) H 06/03/17 05:10 RBC 3.41 M/mm3 (3.60-5.2) L 06/03/17 05:10 Hgb 8.8 GM/dL (10.7-15.3) L 06/03/17 05:10 Hct 28.0 % (32.4-45.2) L 06/03/17 05:10 MCV 82.3 fl (80-96) 06/03/17 05:10 MCHC 31.4 g/dl (32.0-36.0) L 06/03/17 05:10 RDW 21.4 % (11.6-15.6) H 06/03/17 05:10 Plt Count 151 K/MM3 (134-434) 06/03/17 05:10 MPV 10.7 fl (7.5-11.1) 06/03/17 05:10 CMP Sodium 145 mmol/L (136-145) 06/03/17 05:10 Potassium 5.0 mmol/L (3.5-5.1) 06/03/17 05:10 Chloride 110 mmol/L (98-107) H 06/03/17 05:10 Carbon Dioxide 21 mmol/L (21-32) 06/03/17 05:10 Anion Gap 14 (8-16) 06/03/17 05:10 BUN 124 mg/dL (7-18) H* 06/03/17 05:10 Creatinine 4.9 mg/dL (0.55-1.02) H 06/03/17 05:10 Creat Clearance w eGFR 8.59 (>60) 06/03/17 05:10 Calcium 6.0 mg/dL (8.5-10.1) L* 06/03/17 05:10 Total Bilirubin 0.5 mg/dL (0.2-1.0) 06/03/17 05:10 AST 64 U/L (15-37) H 06/03/17 05:10 ALT 242 U/L (12-78) H 06/03/17 05:10 Alkaline Phosphatase 99 U/L (45-117) 06/03/17 05:10 Total Protein 4.7 g/dl (6.4-8.2) L 06/03/17 05:10 Albumin 1.9 g/dl (3.4-5.0) L 06/03/17 05:10 Plan 76 year old female who presented initially from the SNF with acute SOB. Upon seeing patient has been intubated secondary to hypercapneic respiratory failure per notes. Patient was recently discharged to SNF after hip replacement that was complicated by COPD exacerbation. Reportedly, was woken up by difficulty breathing and was brought here. In the ED she was noted to be tachypneic and had respiratory acidosis. BiPAP was attempted but patient was not improving and required intubation. Therafter, reportedly respiratory status improved to the point where she was able to have extubation. Thereafter had cardiac arrest and required resuscitation and revived. Respiratory failure required reintubation and patient in ICU in critical condition. Patient does have brainstem reflexes. She does have pupil constriction, does have corneal reflex and gag reflex. Does not meet criteria for brain . However, higher order cognition remains limited. Not on sedation for 72 hrs now but still does not follow commands and nonverbal. Remains intubated and on mechanical ventilation, not overbreathing vent this AM At this point, further management would depend on goals of care Likely poor prognosis given her clinical condition and comorbidities Not likely to make meaningful recovery and be at function status she was before Likely to need trach, peg, and vent at least for immediate future if continued care desired Palliative care should be considered If further information needed, CT head can be completed, though clinically assessement as above Critical care time 40 mins
[2017-06-03] MEDS ORDERED: FUROSEMIDE 100 MG/10 ML INJECTABLE VIAL IVPUSH ONE (10:58)
--- NOTE | 2017-06-03 11:00 | PN ---
Progress Note, Physician Chief Complaint: Unable to obtain, patient obtunded - Current Medication List Current Medications: Active Medications Acetaminophen (Tylenol Suppository -) 325 mg [place] Q4H PRN PRN Reason: FEVER Acetaminophen (Ofirmev Injection -) 1,000 mg IVPB Q6H PRN PRN Reason: FEVER Albuterol Sulfate (Ventolin 0.083% Nebulizer Soln -) 1 amp NEB Q4H PRN PRN Reason: SHORT OF BREATH/WHEEZING Last Admin: 05/28/17 08:07 Dose: 1 amp Atorvastatin Calcium (Lipitor -) 10 mg PO HS [facility] Last Admin: 06/02/17 21:32 Dose: 10 mg Calcium Carbonate (Calcium Carb Oral Suspension -) 500 mg NGT BID [facility] Last Admin: 06/03/17 09:57 Dose: 500 mg Ferrous Sulfate (Feosol -) 325 mg PO TID [facility] Last Admin: 06/03/17 06:01 Dose: 325 mg Furosemide (Lasix Injection -) 80 mg IVPB ONCE ONE Stop: 06/03/17 10:59 Heparin Sodium (Porcine) (Heparin -) 5,000 unit SQ TID [facility] Last Admin: 06/03/17 06:01 Dose: 5,000 unit Piperacillin Sod/Tazobactam (Sod 2.25 gm/ Dextrose) 100 mls @ 100 mls/hr IVPB Q6H-IV [facility] Last Admin: 06/03/17 09:56 Dose: 100 mls/hr Latanoprost (Xalatan 0.005% Eye Drops -) 1 drop OU [facility] Last Admin: 06/02/17 21:32 Dose: 1 drop Loratadine (Claritin -) 10 mg PO DAILY [facility] Last Admin: 06/03/17 09:46 Dose: 10 mg Methylprednisolone Sodium Succinate (Solu-Medrol -) 40 mg IVPUSH Q6H-IV [facility] Last Admin: 06/03/17 09:45 Dose: 40 mg Montelukast Sodium (Singulair -) 10 mg PO [facility] Last Admin: 06/02/17 21:32 Dose: 10 mg Multivitamins/Minerals/Vitamin C (Tab-A-Vit -) 1 tab PO DAILY [facility] Last Admin: 06/03/17 09:46 Dose: 1 tab Pantoprazole Sodium (Protonix Iv) 40 mg IVPUSH DAILY [facility] Last Admin: 06/03/17 09:46 Dose: 40 mg Sevelamer Carbonate (Renvela Powder Packet -) 0.8 gm NGT TID [facility] Last Admin: 06/03/17 06:02 Dose: 0.8 gm Tiotropium [place] (Spiriva -) 1 puff IH DAILY [facility] Last Admin: 06/03/17 09:47 Dose: Not Given - Objective Vital Signs: Vital Signs Temperature 37.1 C 06/03/17 09:40 Pulse Rate 76 06/03/17 09:40 Respiratory Rate 14 06/03/17 10:56 Blood Pressure 122/75 06/03/17 09:40 O2 Sat by Pulse Oximetry (%) 99 06/03/17 08:15 Constitutional: Yes: Other (obtunded) Cardiovascular: Yes: Regular Rate and Rhythm. No: Gallop, Murmur, Rub Respiratory: Yes: CTA Bilaterally, Intubated, Mechanically Ventilated, Tachypnea. No: Regular, Rales, Rhonchi, Wheezes Gastrointestinal: Yes: Normal Bowel Sounds, Soft. No: Distention, Tenderness Extremities: Yes: WNL Edema: Yes Edema: LUE: 1+, RUE: 1+, LLE: 1+, RLE: 1+ Labs: CBC, BMP 06/03/17 05:10 06/03/17 05:10 INR, PTT INR 0.95 (0.82-1.09) 05/28/17 09:50 Problem List - Problems (1) Asystole Code(s): I46.9 - CARDIAC ARREST, CAUSE UNSPECIFIED (2) Lactic acid acidosis Code(s): E87.2 - ACIDOSIS (3) Hemodynamic instability Code(s): R09.89 - OTH SYMPTOMS AND SIGNS INVOLVING THE CIRC AND RESP SYSTEMS (4) Shock liver Code(s): K72.00 - ACUTE AND SUBACUTE HEPATIC FAILURE WITHOUT COMA (5) RSV (respiratory syncytial virus pneumonia) Code(s): J12.1 - RESPIRATORY SYNCYTIAL VIRUS PNEUMONIA (6) Acute and chronic respiratory failure with hypercapnia Code(s): J96.22 - ACUTE AND CHRONIC RESPIRATORY FAILURE WITH HYPERCAPNIA (7) COPD exacerbation Code(s): J44.1 - CHRONIC OBSTRUCTIVE PULMONARY DISEASE W (ACUTE) EXACERBATION (8) CHF (congestive heart failure) Code(s): I50.9 - HEART FAILURE, UNSPECIFIED Qualifiers: Congestive heart failure type: diastolic Congestive heart failure chronicity: chronic Qualified Code(s): I50.32 - Chronic diastolic (congestive ) heart failure (9) Fracture, hip Code(s): S72.009A - FRACTURE OF UNSP PART OF NECK OF UNSP FEMUR, INIT Qualifiers: Encounter type: initial encounter Fracture type: closed Laterality: left Qualified Code(s): S72.002A - Fracture of unspecified part of neck of left femur, initial encounter for closed fracture (10) Hypertension Code(s): I10 - ESSENTIAL (PRIMARY) HYPERTENSION Assessment/Plan (1) Asystolic cardiac arrest -heart now stable -however overall with poor prognosis -continues to be obtunded -minimal brain stem activity -very poor prognosis and expect minimal neurologic recovery (2) Acute and chronic hypoxic respiratory failure Assessment/Plan: -recurrent and cause of asystole -intubated and mechanically ventilated -pulmonary following and case discussed -d/w family goals of care, currently leaning towards palliative care in Code(s): J96.22 - ACUTE AND CHRONIC RESPIRATORY FAILURE WITH HYPERCAPNIA (3) COPD exacerbation Assessment/Plan: -continue steroids Code(s): J44.1 - CHRONIC OBSTRUCTIVE PULMONARY DISEASE W (ACUTE) EXACERBATION (3) CHF (congestive heart failure) Assessment/Plan: -currently hypotensive requiring pressors -off pressors -case d/w nephrology, continue diuresis currently Code(s): I50.9 - HEART FAILURE, UNSPECIFIED Qualifiers: Congestive heart failure type: diastolic Congestive heart failure chronicity: chronic Qualified Code(s): I50.32 - Chronic diastolic (congestive ) heart failure (4) Fracture, hip Assessment/Plan: -reason for being at [facility] Code(s): S72.009A - FRACTURE OF UNSP PART OF NECK OF UNSP FEMUR, INIT Qualifiers: Encounter type: initial encounter Fracture type: closed Laterality: left Qualified Code(s): S72.002A - Fracture of unspecified part of neck of left femur, initial encounter for closed fracture (5) Hypertension Assessment/Plan: -off pressors Code(s): I10 - ESSENTIAL (PRIMARY) HYPERTENSION (6) Hypocalcemia -replaced as needed (7) Shock Liver -improving (8) Hemodynamic instability -improved, off pressors (9) Lactic acidosis -resolved (10) GORDO -continues to worsen but possibly plateauing -continue monitoring at this time (11) RSV pneumonia -continue zosyn per ID 40 minutes spent in critical care time including family discussion Family discussion: explained clinical course and poor prognosis with family. Stated understanding and will discuss amongst themselves but appears to be leaning towards palliative extubation and comfort measures.
--- NOTE | 2017-06-03 11:07 | PN ---
Progress Note, Physician History of Present Illness: patient seen and examined at bedside intubated and sedated Good urine output with lasix but remains net positive - Current Medication List Current Medications: Active Medications Acetaminophen (Tylenol Suppository -) 325 mg [place] Q4H PRN PRN Reason: FEVER Acetaminophen (Ofirmev Injection -) 1,000 mg IVPB Q6H PRN PRN Reason: FEVER Albuterol Sulfate (Ventolin 0.083% Nebulizer Soln -) 1 amp NEB Q4H PRN PRN Reason: SHORT OF BREATH/WHEEZING Last Admin: 05/28/17 08:07 Dose: 1 amp Atorvastatin Calcium (Lipitor -) 10 mg PO [facility] Last Admin: 06/02/17 21:32 Dose: 10 mg Calcium Carbonate (Calcium Carb Oral Suspension -) 500 mg NGT BID [facility] Last Admin: 06/03/17 09:57 Dose: 500 mg Ferrous Sulfate (Feosol -) 325 mg PO TID [facility] Last Admin: 06/03/17 06:01 Dose: 325 mg Furosemide (Lasix Injection -) 80 mg IVPB ONCE ONE Stop: 06/03/17 10:59 Heparin Sodium (Porcine) (Heparin -) 5,000 unit SQ TID [facility] Last Admin: 06/03/17 06:01 Dose: 5,000 unit Piperacillin Sod/Tazobactam (Sod 2.25 gm/ Dextrose) 100 mls @ 100 mls/hr IVPB Q6H-IV [facility] Last Admin: 06/03/17 09:56 Dose: 100 mls/hr Latanoprost (Xalatan 0.005% Eye Drops -) 1 drop OU [facility] Last Admin: 06/02/17 21:32 Dose: 1 drop Loratadine (Claritin -) 10 mg PO DAILY [facility] Last Admin: 06/03/17 09:46 Dose: 10 mg Methylprednisolone Sodium Succinate (Solu-Medrol -) 40 mg IVPUSH Q6H-IV [facility] Last Admin: 06/03/17 09:45 Dose: 40 mg Montelukast Sodium (Singulair -) 10 mg PO [facility] Last Admin: 06/02/17 21:32 Dose: 10 mg Multivitamins/Minerals/Vitamin C (Tab-A-Vit -) 1 tab PO DAILY [facility] Last Admin: 06/03/17 09:46 Dose: 1 tab Pantoprazole Sodium (Protonix Iv) 40 mg IVPUSH DAILY [facility] Last Admin: 06/03/17 09:46 Dose: 40 mg Sevelamer Carbonate (Renvela Powder Packet -) 0.8 gm NGT TID [facility] Last Admin: 06/03/17 06:02 Dose: 0.8 gm Tiotropium [place] (Spiriva -) 1 puff IH DAILY [facility] Last Admin: 06/03/17 09:47 Dose: Not Given - Objective Vital Signs: Vital Signs Temperature 98.8 F 06/03/17 09:40 Pulse Rate 76 06/03/17 09:40 Respiratory Rate 14 06/03/17 10:56 Blood Pressure 122/75 06/03/17 09:40 O2 Sat by Pulse Oximetry (%) 99 06/03/17 08:15 Constitutional: Yes: No Distress HENT: Yes: Atraumatic Neck: Yes: Supple, Other (Right IJ central line in place) Cardiovascular: Yes: Regular Rate and Rhythm Respiratory: Yes: Rales (bilaterally at bases) Gastrointestinal: Yes: Soft Renal/: Yes: [place] Present (with clear yellow urine output) Edema: Yes Edema: LUE: 2+, RUE: 2+, LLE: 2+, RLE: 2+ Sacral edema present as well Neurological: Yes: Other (intubated and sedated) Labs: CBC, BMP 06/03/17 05:10 06/03/17 05:10 INR, PTT INR 0.95 (0.82-1.09) 05/28/17 09:50 Assessment/Plan 76F PMH opf COPD s/p cardiac arrest likely secondary to acute hypoxic hypercarbic respiratory failure s/p cardiopulmonary resuscitation now with GORDO with Cr of 3.3. GORDO-Likely a secondary to decreased perfusion during cardiac arrest x2 causing ATN. Patient also exposed to IV contrast on 05/25/2017 patient with better urine output with lasix-currently nonoligouric will give an increased dose of lasix today at 80mg to try to make patient net negative monitor BP to avoid intravascular hypotension continue to trend BUN/Cr to see peak-increase in BUN/Cr is increasing but starting to level off trend BMP Mg Phos avoid nephrotoxic drugs renally dose all medications for CrCl <15 no dialysis indicated at this time trend CXR COPD Exacerbation continue vent support wean as tolerated Per critical care team Shock liver likely secondary to hypoperfusion ing cardiac arrestx2 continue to improve perfusion to liver keep MAP >65 trend LFTs-improved s/p Cardiac Arrest Per ICU team Anemia continue to trend cbc transfuse PRN CHF: Lasix 80mg IV push RSV PNA Hip fracture Lactic acidosis leukocytosis Thank you for this consultative opportunity Will continue to follow Case discussed with attending Dr. Szymanski Family meeting today for goals of care
--- NOTE | 2017-06-03 12:30 | PN ---
Teaching Attending Note Name of Resident: Rigoberto Eddy ATTENDING PHYSICIAN STATEMENT I saw and evaluated the patient. I reviewed the resident's note and discussed the case with the resident. I agree with the resident's findings and plan as documented. SUBJECTIVE: Pt seen and examined in the ICU. Remains intubated, unresponsive off sedation, tachypneic. Off pressors. OBJECTIVE: Last Vital Signs Temp Pulse Resp BP Pulse Ox 98.8 F 78 18 129/73 99 06/03/17 10:00 06/03/17 11:56 06/03/17 11:56 06/03/17 11:56 06/03/17 08:15 Intake & Output 05/31/17 06/01/17 06/02/17 06/03/17 23:59 23:59 23:59 23:59 Intake Total 3010 1650 1565 1976 Output Total 117 097 0366 600 Balance 2410 773 862 4768 Weight 60.2 kg 61.7 kg 63.4 kg 63.004 kg Gen: intubated, poorly responsive, tachypneic Heart: RRR Lung: bilateral rhonchi Abd: soft, nontender Ext: + edema CBC, BMP 06/03/17 05:10 06/03/17 05:10 Active Medications Acetaminophen (Tylenol Suppository -) 325 mg [place] Q4H PRN PRN Reason: FEVER Acetaminophen (Ofirmev Injection -) 1,000 mg IVPB Q6H PRN PRN Reason: FEVER Albuterol Sulfate (Ventolin 0.083% Nebulizer Soln -) 1 amp NEB Q4H PRN PRN Reason: SHORT OF BREATH/WHEEZING Last Admin: 05/28/17 08:07 Dose: 1 amp Atorvastatin Calcium (Lipitor -) 10 mg PO HS [facility] Last Admin: 06/02/17 21:32 Dose: 10 mg Calcium Carbonate (Calcium Carb Oral Suspension -) 500 mg NGT BID [facility] Last Admin: 06/03/17 09:57 Dose: 500 mg Ferrous Sulfate (Feosol -) 325 mg PO TID [facility] Last Admin: 06/03/17 06:01 Dose: 325 mg Heparin Sodium (Porcine) (Heparin -) 5,000 unit SQ TID [facility] Last Admin: 06/03/17 06:01 Dose: 5,000 unit Piperacillin Sod/Tazobactam (Sod 2.25 gm/ Dextrose) 100 mls @ 100 mls/hr IVPB Q6H-IV [facility] Last Admin: 06/03/17 09:56 Dose: 100 mls/hr Latanoprost (Xalatan 0.005% Eye Drops -) 1 drop OU HS [facility] Last Admin: 06/02/17 21:32 Dose: 1 drop Loratadine (Claritin -) 10 mg PO DAILY [facility] Last Admin: 06/03/17 09:46 Dose: 10 mg Methylprednisolone Sodium Succinate (Solu-Medrol -) 40 mg IVPUSH Q6H-IV [facility] Last Admin: 06/03/17 09:45 Dose: 40 mg Montelukast Sodium (Singulair -) 10 mg PO HS [facility] Last Admin: 06/02/17 21:32 Dose: 10 mg Multivitamins/Minerals/Vitamin C (Tab-A-Vit -) 1 tab PO DAILY [facility] Last Admin: 06/03/17 09:46 Dose: 1 tab Pantoprazole Sodium (Protonix Iv) 40 mg IVPUSH DAILY [facility] Last Admin: 06/03/17 09:46 Dose: 40 mg Sevelamer Carbonate (Renvela Powder Packet -) 0.8 gm NGT TID [facility] Last Admin: 06/03/17 06:02 Dose: 0.8 gm Tiotropium [place] (Spiriva -) 1 puff IH DAILY [facility] Last Admin: 06/03/17 09:47 Dose: Not Given ASSESSMENT AND PLAN: Acute Hypoxic and Hypercapneic Respiratory Failure Likely Anoxic Encephalopathy Pneumonia UTI Septic Shock Acute Kidney Injury Elevated LFTs likely Ischemic Injury +Troponins likely Demand Ischemia Acute COPD Exacerbation LV Diastolic Dysfunction Pulmonary HTN - continue antibiotics - f/u cultures - continue medrol at current dose - inhaled bronchodilators standing and PRN - keep CVP 8-12 - lasix as needed - monitor urine output, creatinine - off pressors, maintain MAP >65 - hold sedation to assess mental status - spontaneous breathing trials as tolerated when mental status improved - enteral feeds - DVT/GI prophylaxis - continue ICU monitoring - poor prognosis for meaningful recovery, continue discussions regarding goals of care, recommend comfort measures critical care time spent in reviewing chart, evaluating patient and formulating plan 35 min
[2017-06-03 12:52] LABS: ANISOCYTOSIS 1+; PLATELET ESTIMATE ADEQUATE; TEAR DROP CELLS 2+
--- NOTE | 2017-06-03 14:18 | PN ---
Progress Note (short form) - Note Progress Note: Renal follow up for GORDO Pt seen and examined in the ICU on vent unresponsive no overnight events good urine output Vital Signs Temperature 98.8 F 06/03/17 10:00 Pulse Rate 78 06/03/17 12:00 Respiratory Rate 16 06/03/17 13:50 Blood Pressure 129/73 06/03/17 12:00 O2 Sat by Pulse Oximetry (%) 99 06/03/17 08:15 Intake & Output 05/31/17 06/01/17 06/02/17 06/03/17 23:59 23:59 23:59 23:59 Intake Total 3010 1650 1565 1976 Output Total 957 204 1329 600 Balance 2410 640 614 3384 Weight 60.2 kg 61.7 kg 63.4 kg 63.004 kg NAD on vent Dec BS lung bases RRR soft NT/ND figueredo in place trace LE edema, + sacral edema CBC, BMP 06/03/17 05:10 06/03/17 05:10 Current Medications Acetaminophen (Tylenol Suppository -) 325 mg ID Q4H PRN PRN Reason: FEVER Acetaminophen (Ofirmev Injection -) 1,000 mg IVPB Q6H PRN PRN Reason: FEVER Albuterol Sulfate (Ventolin 0.083% Nebulizer Soln -) 1 amp NEB Q4H PRN PRN Reason: SHORT OF BREATH/WHEEZING Last Admin: 05/28/17 08:07 Dose: 1 amp Atorvastatin Calcium (Lipitor -) 10 mg PO HS [facility] Last Admin: 06/02/17 21:32 Dose: 10 mg Calcium Carbonate (Calcium Carb Oral Suspension -) 500 mg NGT BID [facility] Last Admin: 06/03/17 09:57 Dose: 500 mg Ferrous Sulfate (Feosol -) 325 mg PO TID [facility] Last Admin: 06/03/17 06:01 Dose: 325 mg Heparin Sodium (Porcine) (Heparin -) 5,000 unit SQ TID [facility] Last Admin: 06/03/17 06:01 Dose: 5,000 unit Piperacillin Sod/Tazobactam (Sod 2.25 gm/ Dextrose) 100 mls @ 100 mls/hr IVPB Q6H-IV JEANNA Last Admin: 06/03/17 09:56 Dose: 100 mls/hr Latanoprost (Xalatan 0.005% Eye Drops -) 1 drop OU [facility] Last Admin: 06/02/17 21:32 Dose: 1 drop Loratadine (Claritin -) 10 mg PO DAILY [facility] Last Admin: 06/03/17 09:46 Dose: 10 mg Methylprednisolone Sodium Succinate (Solu-Medrol -) 40 mg IVPUSH Q6H-IV [facility] Last Admin: 06/03/17 09:45 Dose: 40 mg Montelukast Sodium (Singulair -) 10 mg PO HS [facility] Last Admin: 06/02/17 21:32 Dose: 10 mg Multivitamins/Minerals/Vitamin C (Tab-A-Vit -) 1 tab PO DAILY [facility] Last Admin: 06/03/17 09:46 Dose: 1 tab Pantoprazole Sodium (Protonix Iv) 40 mg IVPUSH DAILY [facility] Last Admin: 06/03/17 09:46 Dose: 40 mg Sevelamer Carbonate (Renvela Powder Packet -) 0.8 gm NGT TID [facility] Last Admin: 06/03/17 06:02 Dose: 0.8 gm Tiotropium [place] (Spiriva -) 1 puff IH DAILY [facility] Last Admin: 06/03/17 09:47 Dose: Not Given 76 year old woman with PMhx of COPD who presented with hypercarbic respiratory failure requiring intubation complicated by cardiac arrest now with GORDO with Cr of 3.3. Pt with 2 arrests on 05/28. #Acute Renal Failure s/p cardiac arrest Urine studies and clinical course are consistent with ATN from renal hypoprofusion will continue with IV Lasix to maintain good urine output and attempt to achieve negative balance with pt with total body volume overload no acute indication for FIELD REP tube feeds to be changed to low K keep MAP > 65 trend bun/cr and electrolytes continue renvela Q8h #Cardiac Arrest/COPD/Resp Failure continue ICU care Prognosis is guarded Philippe Szymanski DO
--- NOTE | 2017-06-03 16:56 | PN ---
Progress Note, Physician History of Present Illness: continues to be intubated off of sedation not much response opens eyes barely - Current Medication List Current Medications: Active Medications Acetaminophen (Tylenol Suppository -) 325 mg [place] Q4H PRN PRN Reason: FEVER Acetaminophen (Ofirmev Injection -) 1,000 mg IVPB Q6H PRN PRN Reason: FEVER Albuterol Sulfate (Ventolin 0.083% Nebulizer Soln -) 1 amp NEB Q4H PRN PRN Reason: SHORT OF BREATH/WHEEZING Last Admin: 05/28/17 08:07 Dose: 1 amp Atorvastatin Calcium (Lipitor -) 10 mg PO HS [facility] Last Admin: 06/02/17 21:32 Dose: 10 mg Calcium Carbonate (Calcium Carb Oral Suspension -) 500 mg NGT BID [facility] Last Admin: 06/03/17 09:57 Dose: 500 mg Ferrous Sulfate (Feosol -) 325 mg PO TID [facility] Last Admin: 06/03/17 16:54 Dose: 325 mg Heparin Sodium (Porcine) (Heparin -) 5,000 unit SQ TID [facility] Last Admin: 06/03/17 16:53 Dose: 5,000 unit Piperacillin Sod/Tazobactam (Sod 2.25 gm/ Dextrose) 100 mls @ 100 mls/hr IVPB Q6H-IV [facility] Last Admin: 06/03/17 16:53 Dose: 100 mls/hr Latanoprost (Xalatan 0.005% Eye Drops -) 1 drop OU [facility] Last Admin: 06/02/17 21:32 Dose: 1 drop Loratadine (Claritin -) 10 mg PO DAILY [facility] Last Admin: 06/03/17 09:46 Dose: 10 mg Methylprednisolone Sodium Succinate (Solu-Medrol -) 40 mg IVPUSH Q6H-IV [facility] Last Admin: 06/03/17 16:54 Dose: 40 mg Montelukast Sodium (Singulair -) 10 mg PO [facility] Last Admin: 06/02/17 21:32 Dose: 10 mg Multivitamins/Minerals/Vitamin C (Tab-A-Vit -) 1 tab PO DAILY [facility] Last Admin: 06/03/17 09:46 Dose: 1 tab Pantoprazole Sodium (Protonix Iv) 40 mg IVPUSH DAILY [facility] Last Admin: 06/03/17 09:46 Dose: 40 mg Sevelamer Carbonate (Renvela Powder Packet -) 0.8 gm NGT TID [facility] Last Admin: 06/03/17 16:53 Dose: 0.8 gm Tiotropium [place] (Spiriva -) 1 puff IH DAILY [facility] Last Admin: 06/03/17 09:47 Dose: Not Given - Objective Vital Signs: Vital Signs Temperature 98.6 F 06/03/17 14:00 Pulse Rate 106 H 06/03/17 16:00 Respiratory Rate 16 06/03/17 16:32 Blood Pressure 116/77 06/03/17 16:00 O2 Sat by Pulse Oximetry (%) 99 06/03/17 08:15 Constitutional: Yes: Other Neck: Yes: Supple Cardiovascular: Yes: S1, S2 Respiratory: Yes: Intubated, Mechanically Ventilated Gastrointestinal: Yes: Normal Bowel Sounds, Soft, Other (ng tube in place) Musculoskeletal: Yes: WNL Extremities: Yes: WNL Neurological: Yes: Other Labs: CBC, BMP 06/03/17 05:10 06/03/17 05:10 INR, PTT INR 0.95 (0.82-1.09) 05/28/17 09:50 Assessment/Plan Problem List - Problems (1) Acute and chronic respiratory failure with hypercapnia Code(s): J96.22 - ACUTE AND CHRONIC RESPIRATORY FAILURE WITH HYPERCAPNIA (2) COPD exacerbation Code(s): J44.1 - CHRONIC OBSTRUCTIVE PULMONARY DISEASE W (ACUTE) EXACERBATION (3) CHF (congestive heart failure) Code(s): I50.9 - HEART FAILURE, UNSPECIFIED Qualifiers: Congestive heart failure type: diastolic Congestive heart failure chronicity: chronic Qualified Code(s): I50.32 - Chronic diastolic (congestive ) heart failure (4) Fracture, hip Code(s): S72.009A - FRACTURE OF UNSP PART OF NECK OF UNSP FEMUR, INIT Qualifiers: Encounter type: initial encounter Fracture type: closed Laterality: left Qualified Code(s): S72.002A - Fracture of unspecified part of neck of left femur, initial encounter for closed fracture (5) Hypertension Code(s): I10 - ESSENTIAL (PRIMARY) HYPERTENSION 6 pneumonia 7 leukocytosis 8 uti plan plan continue abx supportive measures nutrition rest as per icu patient continues to be critical no changes cc time 40 min
[2017-06-03] MEDS: MONTELUKAST NA 10 MG TABLET PO SCH (21:25)
[2017-06-03] MEDS: ATORVASTATIN CA 10 MG TABLET (FP) PO SCH (21:25)
[2017-06-03] MEDS: LATANOPROST 0.005% OPHTH SOLN 2.5ML BOTTLE OU SCH (21:26)
[2017-06-04] MEDS: PIPERACILLIN/TAZOB 2.25 GM 2.25 GM in DEXTROSE 5%-WATER - 100 ML IVPB SCH ×3 (02:10→15:30)
[2017-06-04] MEDS: methylPREDNISolone NA SUCC 40 MG/1 ML VIAL IVPUSH SCH ×4 (02:10→21:20)
[2017-06-04] MEDS: SEVELAMER CARBONATE 0.8 GM POWDER PACKET NGT SCH ×2 (05:08→13:24)
[2017-06-04] MEDS: HEPARIN NA (PORCINE) 5,000 UNITS/ML 1ML VIAL SQ SCH ×2 (05:08→13:24)
[2017-06-04] MEDS: FERROUS SO4 325 MG TABLET (FP) PO SCH ×2 (05:08→13:23)
[2017-06-04 06:48] LABS: HEMATOCRIT 28.9 % (32.4-45.2); HEMOGLOBIN 8.9 GM/dL (10.7-15.3); MCH 25.5 pg (25.7-33.7); MCHC 30.9 g/dl (32.0-36.0); MEAN CELL VOLUME 82.4 fl (80-96); MEAN PLT VOLUME 10.7 fl (7.5-11.1); PLATELET COUNT 188 K/MM3 (134-434); RBC 3.51 M/mm3 (3.60-5.2); RDW 21.1 % (11.6-15.6); WHITE BLOOD COUNT 25.7 K/mm3 (4.0-10.0)
[2017-06-04 07:14] LABS: ALBUMIN 1.9 g/dl (3.4-5.0); ANION GAP 14 (8-16); CHLORIDE 107 mmol/L (98-107); CO2 22 mmol/L (21-32); GLUCOSE,RANDOM 205 mg/dL (74-106); MAGNESIUM 2.8 mg/dL (1.8-2.4); POTASSIUM 5.1 mmol/L (3.5-5.1); SODIUM 143 mmol/L (136-145)
[2017-06-04 07:19] LABS: ALK PHOS 90 U/L (45-117); BILIRUBIN,TOTAL 0.4 mg/dL (0.2-1.0); CREATININE 5.2 mg/dL (0.55-1.02); PHOSPHOROUS 7.3 mg/dL (2.5-4.9); SGOT/AST 60 U/L (15-37); SGPT/ALT 187 U/L (12-78); TOT PROT 4.8 g/dl (6.4-8.2)
[2017-06-04 07:29] LABS: BLOOD UREA NITROGEN 130 mg/dL (7-18); CALCIUM 6.2 mg/dL (8.5-10.1)
[2017-06-04] MEDS ORDERED: PT OWN MED DRAWER 7, Y5N ONE ×2 (08:06→14:53)
--- NOTE | 2017-06-04 08:50 | PN ---
Physical Exam: SUBJECTIVE: Patient seen and examined The patient is a 76 year old female with a history of COPD, CHF, recent hip Fx and replacement 04/18 c/b COPD exacerbation who presented with acute respiratory failure readmitted to the ICU following a cardiac arrest event. Patient remains unresponsive on exam. Family meeting held yesterday with Dr. Zuniga. Decision has not been made yet on the goals of care for the patient. Another family meeting is scheduled today to continue discussion of goals of care. Otherwise, no acute events overnight. OBJECTIVE: Vital Signs Period Temp Pulse Resp BP Sys/Ellis Pulse Ox Last 24 Hr 98.4 F-98.9 F 76-109 14-26 115-140/68-95 98-100 GENERAL: The patient is intubated, in no acute distress. HEAD: Normal with no signs of trauma. EYES: sclera anicteric, conjunctiva clear. No ptosis. ENT: oropharynx clear without exudates, moist mucous membranes. NECK: Trachea midline, full range of motion, supple. LUNGS: Breath sounds equal, Course crackles auscultated on the right, no wheezes , no accessory muscle use. HEART: Regular rate and rhythm, S1, S2 without murmur, rub or gallop. ABDOMEN: Soft, nontender, nondistended, normoactive bowel sounds, no guarding, no rebound, no hepatosplenomegaly, no masses. EXTREMITIES: 2+ pulses, warm, well-perfused, 2+ edema noted. NEUROLOGICAL: Unresponsive. gait not observed. PSYCH: Normal mood, normal affect. SKIN: Warm, dry, normal turgor, no rashes or lesions noted Laboratory Results - last 24 hr 06/03/17 06/04/17 06/04/17 05:10 06:30 06:30 WBC 25.7 H D RBC 3.51 L Hgb 8.9 L Hct 28.9 L MCV 82.4 MCH 25.5 L MCHC 30.9 L RDW 21.1 H Plt Count 188 D MPV 10.7 Total Counted 100 Neutrophils % No Result Required. Neutrophils % (Manual) 97.0 H* Lymphocytes % No Result Required. Lymphocytes % (Manual) 1.0 L D Monocytes % (Manual) 2 L D Platelet Estimate Adequate Anisocytosis 1+ Tear Drop Cells 2+ [place] Cells 1+ Schistocytes 1+ Sodium 143 Potassium 5.1 Chloride 107 Carbon Dioxide 22 Anion Gap 14 BUN 130 H* Creatinine 5.2 H Creat Clearance w eGFR 8.02 Random Glucose 205 H Calcium 6.2 L* Phosphorus 7.3 H Magnesium 2.8 H Total Bilirubin 0.4 AST 60 H ALT 187 H Alkaline Phosphatase 90 Total Protein 4.8 L Albumin 1.9 L Active Medications Generic Name Dose Route Start Last Admin Trade Name Freq PRN Reason Stop Dose Admin Acetaminophen 325 mg 05/27/17 12:22 Tylenol Suppository - [place] Q4H PRN FEVER Acetaminophen 1,000 mg 05/29/17 02:10 Ofirmev Injection - IVPB Q6H PRN FEVER Albuterol Sulfate 1 amp 05/27/17 12:22 05/28/17 08:07 Ventolin 0.083% Nebulizer Soln - NEB 1 amp Q4H PRN Administration SHORT OF BREATH/WHEEZING Atorvastatin Calcium 10 mg 05/27/17 22:00 06/03/17 21:25 Lipitor - PO 10 mg HS JEANNA Administration Calcium Carbonate 500 mg 06/01/17 10:00 06/03/17 21:26 Calcium Carb Oral Suspension - NGT 500 mg BID JEANNA Administration Ferrous Sulfate 325 mg 05/27/17 22:00 06/04/17 05:08 Feosol - PO 325 mg TID JEANNA Administration Heparin Sodium (Porcine) 5,000 unit 05/31/17 14:00 06/04/17 05:08 Heparin - SQ 5,000 unit TID JEANNA Administration Piperacillin Sod/Tazobactam 100 mls @ 100 mls/hr 05/29/17 13:33 06/04/17 02: 10 Sod 2.25 gm/ Dextrose IVPB 100 mls/hr Q6H-IV JEANNA Administration Latanoprost 1 drop 05/27/17 22:00 06/03/17 21:26 Xalatan 0.005% Eye Drops - OU 1 drop HS JEANNA Administration Loratadine 10 mg 05/28/17 10:00 06/03/17 09:46 Claritin - PO 10 mg DAILY JEANNA Administration Methylprednisolone Sodium Succinate 40 mg 05/27/17 15:00 06/04/17 02:10 Solu-Medrol - IVPUSH 40 mg Q6H-IV JEANNA Administration Montelukast Sodium 10 mg 05/27/17 22:00 06/03/17 21:25 Singulair - PO 10 mg HS JEANNA Administration Multivitamins/Minerals/Vitamin C 1 tab 05/28/17 10:00 06/03/17 09:46 Tab-A-Vit - PO 1 tab DAILY JEANNA Administration Pantoprazole Sodium 40 mg 05/28/17 10:00 06/03/17 09:46 Protonix Iv IVPUSH 40 mg DAILY JEANNA Administration Sevelamer Carbonate 0.8 gm 06/02/17 14:00 06/04/17 05:08 Renvela Powder Packet - NGT 0.8 gm TID JEANNA Administration Tiotropium [place] 1 puff 05/28/17 10:00 06/03/17 09:47 Spiriva - IH Not Given DAILY JEANNA ASSESSMENT/PLAN: The patient is a 76 year old female with a history of COPD, CHF, recent hip Fx and replacement 04/18 c/b COPD exacerbation who presented with acute respiratory failure readmitted to the ICU following a cardiac arrest event. NEURO Patient remains minimally responsive off sedation. -Patient has continued to remain un-responsive off sedation for 72 hours. -Will continue to monitor. CV #Hypotension (Improved) -Patient now stable off pressors. -Will continue to monitor. #Elevated troponin (Improved) -Now downtrending. RESP #Acute respiratory failure Patient now re-intubated following a cardiac arrest earlier today. Chest plain film demonstrates right sided rib fractures likely due to chest compressions. It is likely the patient aspirated leading to a respiratory arrest that led to the cardiac arrest. -Will cover the patient with zosyn. -Continue solu-medrol. -Will maintain the patient on the ventilator. -Will continue to monitor. GI -NG tube with feeds. Renal #GORDO -Worsening bun/creatinine with some urine output after lasix. -Patient received 80mg of lasix yesterday. -Follow Renal recommendations. -Will continue to monitor bun/creatinine. ID #Pneumonia vs. Influenza vs. RSV -Continue zosyn. -Re-culture if patient spikes a temp. -Follow recs from [facility] No issues currently FEN/GI -Replete electrolytes PRN, will monitor -Discontinue IV fluids. -Tube feeds. PPX -Lovenox 40 sq daily -Protonix 40 IV daily for GI ppx DISPO: Continue ICU level of care. Visit type - Emergency Visit Emergency Visit: No - New Patient This patient is new to me today: No - Critical Care Critical Care patient: Yes Total Critical Care Time (in minutes): 35 Critical Care Statement: The care of this patient involved high complexity decision making to prevent further life threatening deterioration of the patient 's condition and/or to evaluate & treat vital organ system(s) failure or risk of failure.
[2017-06-04] MEDS: CALCIUM CARBONATE SUSPENSION - 500 MG/5 ML ML NGT SCH (09:33)
[2017-06-04] MEDS: LORATADINE 10 MG TABLET PO SCH (09:34)
[2017-06-04] MEDS: MULTIVITAMINS (DAILY MVI) TABLET (FP) PO SCH (09:35)
[2017-06-04] MEDS: PANTOPRAZOLE SODIUM 40 MG VIAL IVPUSH SCH (09:36)
[2017-06-04] MEDS: TIOTROPIUM BROMIDE 18 MCG/INH (DEVICE W/ 5 CAPSULES) IH SCH (09:37)
--- NOTE | 2017-06-04 10:06 | PN ---
Progress Note (short form) - Note Progress Note: Neurology History of Present Illness: 76 year old female who presented initially from the SNF with acute SOB. Upon seeing patient has been intubated secondary to hypercapneic respiratory failure per notes. Patient was recently discharged to SNF after hip replacement that was complicated by COPD exacerbation. Reportedly, was woken up by difficulty breathing and was brought here. In the ED she was noted to be tachypneic and had respiratory acidosis. BiPAP was attempted but patient was not improving and required intubation. Therafter, reportedly respiratory status improved to the point where she was able to have extubation. Thereafter had cardiac arrest and required resuscitation and revived. Respiratory failure required reintubation and patient in ICU in critical condition. Discussed with nurse and resident and examined, patient does have brainstem reflexes. She does have pupil constriction , does have corneal reflex and gag reflex. Therefore, does not meet criteria for brain . However, higher order cognition remains limited and has not had meaningful recovery. She is not arousable or conversive. She does not follow commands. She remains vent dependent and likely with poor prognosis. Spoke to nurse and daughter from [place] arrived, met with team and family discussing goals of care and palliative care. Active Medications Acetaminophen (Tylenol Suppository -) 325 mg [place] Q4H PRN PRN Reason: FEVER Acetaminophen (Ofirmev Injection -) 1,000 mg IVPB Q6H PRN PRN Reason: FEVER Albuterol Sulfate (Ventolin 0.083% Nebulizer Soln -) 1 amp NEB Q4H PRN PRN Reason: SHORT OF BREATH/WHEEZING Last Admin: 05/28/17 08:07 Dose: 1 amp Atorvastatin Calcium (Lipitor -) 10 mg PO HS [facility]ANNA Last Admin: 06/03/17 21:25 Dose: 10 mg Calcium Carbonate (Calcium Carb Oral Suspension -) 500 mg NGT BID [facility]NA Last Admin: 06/04/17 09:33 Dose: 500 mg Ferrous Sulfate (Feosol -) 325 mg PO TID [facility]ANNA Last Admin: 06/04/17 05:08 Dose: 325 mg Heparin Sodium (Porcine) (Heparin -) 5,000 unit SQ TID [facility]ANNA Last Admin: 06/04/17 05:08 Dose: 5,000 unit Piperacillin Sod/Tazobactam (Sod 2.25 gm/ Dextrose) 100 mls @ 100 mls/hr IVPB Q6H-IV [facility]ANNA Last Admin: 06/04/17 09:47 Dose: 100 mls/hr Latanoprost (Xalatan 0.005% Eye Drops -) 1 drop OU [facility] Last Admin: 06/03/17 21:26 Dose: 1 drop Loratadine (Claritin -) 10 mg PO DAILY [facility] Last Admin: 06/04/17 09:34 Dose: 10 mg Methylprednisolone Sodium Succinate (Solu-Medrol -) 40 mg IVPUSH Q6H-IV [facility] Last Admin: 06/04/17 09:33 Dose: 40 mg Montelukast Sodium (Singulair -) 10 mg PO HS [facility] Last Admin: 06/03/17 21:25 Dose: 10 mg Multivitamins/Minerals/Vitamin C (Tab-A-Vit -) 1 tab PO DAILY [facility] Last Admin: 06/04/17 09:35 Dose: 1 tab Pantoprazole Sodium (Protonix Iv) 40 mg IVPUSH DAILY [facility] Last Admin: 06/04/17 09:36 Dose: 40 mg Sevelamer Carbonate (Renvela Powder Packet -) 0.8 gm NGT TID [facility] Last Admin: 06/04/17 05:08 Dose: 0.8 gm Tiotropium [place] (Spiriva -) 1 puff IH DAILY [facility] Last Admin: 06/04/17 09:37 Dose: Not Given Physical Examination Vital Signs Period Temp Pulse Resp BP Sys/Ellis Pulse Ox Last 24 Hr 98.4 F-98.9 F 78-109 14-26 115-140/68-95 98-100 Constitutional: Yes: Other (sedated) Eyes: Yes: Conjunctiva Clear, EOM Intact, PERRL HENT: Yes: Atraumatic, Normocephalic Cardiovascular: Yes: Tachycardia. No: Pulse Irregular, Gallop, Murmur, Rub Respiratory: Yes: Regular, CTA Bilaterally, Intubated, Mechanically Ventilated. No: Rales, Rhonchi, Wheezes Gastrointestinal: Yes: Normal Bowel Sounds, Soft. No: Distention, Tenderness Extremities: Yes: WNL Neuro: Nonresponsive, not opening eyes spontaneously, not following commands, pupil response 3+ to 2+, corneal intact, gag intact, no responding to pain Edema: No CBCD WBC 19.2 K/mm3 (4.0-10.0) H 06/03/17 05:10 RBC 3.41 M/mm3 (3.60-5.2) L 06/03/17 05:10 Hgb 8.8 GM/dL (10.7-15.3) L 06/03/17 05:10 Hct 28.0 % (32.4-45.2) L 06/03/17 05:10 MCV 82.3 fl (80-96) 06/03/17 05:10 MCHC 31.4 g/dl (32.0-36.0) L 06/03/17 05:10 RDW 21.4 % (11.6-15.6) H 06/03/17 05:10 Plt Count 151 K/MM3 (134-434) 06/03/17 05:10 MPV 10.7 fl (7.5-11.1) 06/03/17 05:10 CMP Sodium 145 mmol/L (136-145) 06/03/17 05:10 Potassium 5.0 mmol/L (3.5-5.1) 06/03/17 05:10 Chloride 110 mmol/L (98-107) H 06/03/17 05:10 Carbon Dioxide 21 mmol/L (21-32) 06/03/17 05:10 Anion Gap 14 (8-16) 06/03/17 05:10 BUN 124 mg/dL (7-18) H* 06/03/17 05:10 Creatinine 4.9 mg/dL (0.55-1.02) H 06/03/17 05:10 Creat Clearance w eGFR 8.59 (>60) 06/03/17 05:10 Calcium 6.0 mg/dL (8.5-10.1) L* 06/03/17 05:10 Total Bilirubin 0.5 mg/dL (0.2-1.0) 06/03/17 05:10 AST 64 U/L (15-37) H 06/03/17 05:10 ALT 242 U/L (12-78) H 06/03/17 05:10 Alkaline Phosphatase 99 U/L (45-117) 06/03/17 05:10 Total Protein 4.7 g/dl (6.4-8.2) L 06/03/17 05:10 Albumin 1.9 g/dl (3.4-5.0) L 06/03/17 05:10 Plan 76 year old female who presented initially from the SNF with acute SOB. Upon seeing patient has been intubated secondary to hypercapneic respiratory failure per notes. Patient was recently discharged to SNF after hip replacement that was complicated by COPD exacerbation. Reportedly, was woken up by difficulty breathing and was brought here. In the ED she was noted to be tachypneic and had respiratory acidosis. BiPAP was attempted but patient was not improving and required intubation. Therafter, reportedly respiratory status improved to the point where she was able to have extubation. Thereafter had cardiac arrest and required resuscitation and revived. Respiratory failure required reintubation and patient in ICU in critical condition. Patient does have brainstem reflexes: pupil constriction, does have corneal reflex and gag reflex. Does not meet criteria for brain . However, higher order cognition remains limited. Not on sedation for 4 days now but still does not follow commands and nonverbal. Remains intubated and on mechanical ventilation At this point, further management would depend on goals of care Likely poor prognosis given her clinical condition and comorbidities Not likely to make meaningful recovery and be at function status she was before Likely to need trach, peg, and vent at least for immediate future if continued care desired Palliative care being considered by family Discussed with nurse and resident Critical care time 35 mins
--- NOTE | 2017-06-04 10:09 | PN ---
Progress Note, Physician Chief Complaint: Unable to obtain, patient obtunded - Current Medication List Current Medications: Active Medications Acetaminophen (Tylenol Suppository -) [address] Q4H PRN PRN Reason: FEVER Acetaminophen (Ofirmev Injection -) 1,000 mg IVPB Q6H PRN PRN Reason: FEVER Albuterol Sulfate (Ventolin 0.083% Nebulizer Soln -) 1 amp NEB Q4H PRN PRN Reason: SHORT OF BREATH/WHEEZING Last Admin: 05/28/17 08:07 Dose: 1 amp Atorvastatin Calcium (Lipitor -) 10 mg PO HS [facility] Last Admin: 06/03/17 21:25 Dose: 10 mg Calcium Carbonate (Calcium Carb Oral Suspension -) 500 mg NGT BID [facility] Last Admin: 06/04/17 09:33 Dose: 500 mg Ferrous Sulfate (Feosol -) 325 mg PO TID [facility] Last Admin: 06/04/17 05:08 Dose: 325 mg Heparin Sodium (Porcine) (Heparin -) 5,000 unit SQ TID [facility] Last Admin: 06/04/17 05:08 Dose: 5,000 unit Piperacillin Sod/Tazobactam (Sod 2.25 gm/ Dextrose) 100 mls @ 100 mls/hr IVPB Q6H-IV [facility] Last Admin: 06/04/17 09:47 Dose: 100 mls/hr Latanoprost (Xalatan 0.005% Eye Drops -) 1 drop OU [facility] Last Admin: 06/03/17 21:26 Dose: 1 drop Loratadine (Claritin -) 10 mg PO DAILY [facility] Last Admin: 06/04/17 09:34 Dose: 10 mg Methylprednisolone Sodium Succinate (Solu-Medrol -) 40 mg IVPUSH Q6H-IV [facility] Last Admin: 06/04/17 09:33 Dose: 40 mg Montelukast Sodium (Singulair -) 10 mg PO [facility] Last Admin: 06/03/17 21:25 Dose: 10 mg Multivitamins/Minerals/Vitamin C (Tab-A-Vit -) 1 tab PO DAILY [facility] Last Admin: 06/04/17 09:35 Dose: 1 tab Pantoprazole Sodium (Protonix Iv) 40 mg IVPUSH DAILY [facility] Last Admin: 06/04/17 09:36 Dose: 40 mg Sevelamer Carbonate (Renvela Powder Packet -) 0.8 gm NGT TID [facility] Last Admin: 06/04/17 05:08 Dose: 0.8 gm Tiotropium [place] (Spiriva -) 1 puff IH DAILY [facility] Last Admin: 06/04/17 09:37 Dose: Not Given - Objective Vital Signs: Vital Signs Temperature 36.9 C 06/04/17 06:00 Pulse Rate 103 H 06/04/17 06:00 Respiratory Rate 18 06/04/17 09:31 Blood Pressure 121/68 06/04/17 06:00 O2 Sat by Pulse Oximetry (%) 100 06/04/17 07:44 Constitutional: Yes: Other (obtunded, minimally responsive) Cardiovascular: Yes: Regular Rate and Rhythm. No: Gallop, Murmur, Rub Respiratory: Yes: Regular, CTA Bilaterally, Intubated, Mechanically Ventilated. No: Rales, Rhonchi, Wheezes Gastrointestinal: Yes: Normal Bowel Sounds, Soft. No: Distention, Tenderness Extremities: Yes: WNL Edema: Yes Edema: LUE: 1+, RUE: 1+, LLE: 1+, RLE: 1+ Labs: CBC, BMP 06/04/17 06:30 06/04/17 06:30 INR, PTT INR 0.95 (0.82-1.09) 05/28/17 09:50 Problem List - Problems (1) Asystole Code(s): I46.9 - CARDIAC ARREST, CAUSE UNSPECIFIED (2) Lactic acid acidosis Code(s): E87.2 - ACIDOSIS (3) Hemodynamic instability Code(s): R09.89 - OTH SYMPTOMS AND SIGNS INVOLVING THE CIRC AND RESP SYSTEMS (4) Shock liver Code(s): K72.00 - ACUTE AND SUBACUTE HEPATIC FAILURE WITHOUT COMA (5) RSV (respiratory syncytial virus pneumonia) Code(s): J12.1 - RESPIRATORY SYNCYTIAL VIRUS PNEUMONIA (6) Acute and chronic respiratory failure with hypercapnia Code(s): J96.22 - ACUTE AND CHRONIC RESPIRATORY FAILURE WITH HYPERCAPNIA (7) COPD exacerbation Code(s): J44.1 - CHRONIC OBSTRUCTIVE PULMONARY DISEASE W (ACUTE) EXACERBATION (8) CHF (congestive heart failure) Code(s): I50.9 - HEART FAILURE, UNSPECIFIED Qualifiers: Congestive heart failure type: diastolic Congestive heart failure chronicity: chronic Qualified Code(s): I50.32 - Chronic diastolic (congestive ) heart failure (9) Fracture, hip Code(s): S72.009A - FRACTURE OF UNSP PART OF NECK OF UNSP FEMUR, INIT Qualifiers: Encounter type: initial encounter Fracture type: closed Laterality: left Qualified Code(s): S72.002A - Fracture of unspecified part of neck of left femur, initial encounter for closed fracture (10) Hypertension Code(s): I10 - ESSENTIAL (PRIMARY) HYPERTENSION Assessment/Plan (1) Asystolic cardiac arrest -heart now stable -however overall with poor prognosis -continues to be obtunded -minimal brain stem activity -very poor prognosis and expect minimal neurologic recovery (2) Acute and chronic hypoxic respiratory failure Assessment/Plan: -recurrent and cause of asystole -case d/w pulmonary -awaiting decision concerning palliative wean Code(s): J96.22 - ACUTE AND CHRONIC RESPIRATORY FAILURE WITH HYPERCAPNIA (3) COPD exacerbation Assessment/Plan: -continue steroids Code(s): J44.1 - CHRONIC OBSTRUCTIVE PULMONARY DISEASE W (ACUTE) EXACERBATION (3) CHF (congestive heart failure) Assessment/Plan: -currently hypotensive requiring pressors -off pressors -case d/w nephrology, continue diuresis currently with IV lasix Code(s): I50.9 - HEART FAILURE, UNSPECIFIED Qualifiers: Congestive heart failure type: diastolic Congestive heart failure chronicity: chronic Qualified Code(s): I50.32 - Chronic diastolic (congestive ) heart failure (4) Fracture, hip Assessment/Plan: -reason for being at SNF Code(s): S72.009A - FRACTURE OF UNSP PART OF NECK OF UNSP FEMUR, INIT Qualifiers: Encounter type: initial encounter Fracture type: closed Laterality: left Qualified Code(s): S72.002A - Fracture of unspecified part of neck of left femur, initial encounter for closed fracture (5) Hypertension Assessment/Plan: -off pressors Code(s): I10 - ESSENTIAL (PRIMARY) HYPERTENSION (6) Hypocalcemia -replaced as needed (7) Shock Liver -improving (8) Hemodynamic instability -improved, off pressors (9) Lactic acidosis -resolved (10) GORDO -continues to worsen (11) RSV pneumonia -continue zosyn per ID -may stop if put on comfort measures only
[2017-06-04 10:10] LABS: PLATELET ESTIMATE ADEQUATE
[2017-06-04] MEDS ORDERED: FUROSEMIDE 40 MG/4 ML INJECTABLE VIAL IVPB ONE (12:23)
--- NOTE | 2017-06-04 12:37 | PN ---
Progress Note (short form) - Note Progress Note: Renal follow up for GORDO Pt seen and examined in the ICU no overnight events making urine via figueredo on vent via ET Tube FiO is 40% Vital Signs Temperature 98.5 F 06/04/17 06:00 Pulse Rate 109 H 06/04/17 10:00 Respiratory Rate 15 06/04/17 11:47 Blood Pressure 132/72 06/04/17 10:00 O2 Sat by Pulse Oximetry (%) 100 06/04/17 07:44 Intake & Output 06/01/17 06/02/17 06/03/17 06/04/17 23:59 23:59 23:59 23:59 Intake Total 1650 1565 2126 850 Output Total 850 1200 1000 400 Balance 994 111 8557 450 Weight 61.7 kg 63.4 kg 63.004 kg 63.276 kg NAD on vent Dec BS lung bases RRR soft NT/ND figueredo in place trace LE edema, + sacral edema CBC, BMP 06/04/17 06:30 06/04/17 06:30 Current Medications Acetaminophen (Tylenol Suppository -) 325 mg [place] Q4H PRN PRN Reason: FEVER Acetaminophen (Ofirmev Injection -) 1,000 mg IVPB Q6H PRN PRN Reason: FEVER Albuterol Sulfate (Ventolin 0.083% Nebulizer Soln -) 1 amp NEB Q4H PRN PRN Reason: SHORT OF BREATH/WHEEZING Last Admin: 05/28/17 08:07 Dose: 1 amp Atorvastatin Calcium (Lipitor -) 10 mg PO HS [facility] Last Admin: 06/03/17 21:25 Dose: 10 mg Calcium Carbonate (Calcium Carb Oral Suspension -) 500 mg NGT BID [facility] Last Admin: 06/04/17 09:33 Dose: 500 mg Ferrous Sulfate (Feosol -) 325 mg PO TID [facility] Last Admin: 06/04/17 05:08 Dose: 325 mg Heparin Sodium (Porcine) (Heparin -) 5,000 unit SQ TID [facility] Last Admin: 06/04/17 05:08 Dose: 5,000 unit Piperacillin Sod/Tazobactam (Sod 2.25 gm/ Dextrose) 100 mls @ 100 mls/hr IVPB Q6H-IV [facility] Last Admin: 06/04/17 09:47 Dose: 100 mls/hr Latanoprost (Xalatan 0.005% Eye Drops -) 1 drop OU HS [facility] Last Admin: 06/03/17 21:26 Dose: 1 drop Loratadine (Claritin -) 10 mg PO DAILY [facility] Last Admin: 06/04/17 09:34 Dose: 10 mg Methylprednisolone Sodium Succinate (Solu-Medrol -) 40 mg IVPUSH Q6H-IV [facility] Last Admin: 06/04/17 09:33 Dose: 40 mg Montelukast Sodium (Singulair -) 10 mg PO HS [facility] Last Admin: 06/03/17 21:25 Dose: 10 mg Multivitamins/Minerals/Vitamin C (Tab-A-Vit -) 1 tab PO DAILY [facility] Last Admin: 06/04/17 09:35 Dose: 1 tab Pantoprazole Sodium (Protonix Iv) 40 mg IVPUSH DAILY [facility] Last Admin: 06/04/17 09:36 Dose: 40 mg Sevelamer Carbonate (Renvela Powder Packet -) 0.8 gm NGT TID [facility] Last Admin: 06/04/17 05:08 Dose: 0.8 gm Tiotropium [place] (Spiriva -) 1 puff IH DAILY [facility] Last Admin: 06/04/17 09:37 Dose: Not Given 76 year old woman with PMhx of COPD who presented with hypercarbic respiratory failure requiring intubation complicated by cardiac arrest now with GORDO with Cr of 3.3. Pt with 2 arrests on 05/28. 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
--- NOTE | 2017-06-04 13:07 | PN ---
Teaching Attending Note Name of Resident: Erendira Faulkner ATTENDING PHYSICIAN STATEMENT I saw and evaluated the patient. I reviewed the resident's note and discussed the case with the resident. I agree with the resident's findings and plan as documented. SUBJECTIVE: Patient seen and examined in the ICU. Remains intubated, Poorly responsive off sedation Off pressors. OBJECTIVE: Intake & Output 06/01/17 06/02/17 06/03/17 06/04/17 23:59 23:59 23:59 23:59 Intake Total 1650 1565 2126 850 Output Total 850 1200 1000 400 Balance 508 358 2078 450 Weight 136 lb 0.403 oz 139 lb 12.369 oz 138 lb 14.4 oz 139 lb 8 oz Last Vital Signs Temp Pulse Resp BP Pulse Ox 98.5 F 109 H 15 132/72 100 06/04/17 06:00 06/04/17 10:00 06/04/17 11:47 06/04/17 10:00 06/04/17 07:44 Active Medications Acetaminophen (Tylenol Suppository -) 325 mg [place] Q4H PRN PRN Reason: FEVER Acetaminophen (Ofirmev Injection -) 1,000 mg IVPB Q6H PRN PRN Reason: FEVER Albuterol Sulfate (Ventolin 0.083% Nebulizer Soln -) 1 amp NEB Q4H PRN PRN Reason: SHORT OF BREATH/WHEEZING Last Admin: 05/28/17 08:07 Dose: 1 amp Atorvastatin Calcium (Lipitor -) [address] [facility] Last Admin: 06/03/17 21:25 Dose: 10 mg Calcium Carbonate (Calcium Carb Oral Suspension -) [address] [facility] Last Admin: 06/04/17 09:33 Dose: 500 mg Ferrous Sulfate (Feosol -) [address] [facility] Last Admin: 06/04/17 05:08 Dose: 325 mg Heparin Sodium (Porcine) (Heparin -) 5,[address] [facility] Last Admin: 06/04/17 05:08 Dose: 5,000 unit Piperacillin Sod/Tazobactam (Sod 2.25 gm/ Dextrose) 100 mls @ 100 mls/hr IVPB Q6H-IV [facility] Last Admin: 06/04/17 09:47 Dose: 100 mls/hr Latanoprost (Xalatan 0.005% Eye Drops -) 1 drop OU [facility] Last Admin: 06/03/17 21:26 Dose: 1 drop Loratadine (Claritin -) [address] [facility] Last Admin: 06/04/17 09:34 Dose: 10 mg Methylprednisolone Sodium Succinate (Solu-Medrol -) 40 mg IVPUSH Q6H-IV [facility] Last Admin: 06/04/17 09:33 Dose: 40 mg Montelukast Sodium (Singulair -) [address] [facility] Last Admin: 06/03/17 21:25 Dose: 10 mg Multivitamins/Minerals/Vitamin C (Tab-A-Vit -) [address] [facility] Last Admin: 06/04/17 09:35 Dose: 1 tab Pantoprazole Sodium (Protonix Iv) [address] [facility] Last Admin: 06/04/17 09:36 Dose: 40 mg Sevelamer Carbonate (Renvela Powder Packet -) 0.[address] [facility] Last Admin: 06/04/17 05:08 Dose: 0.8 gm Tiotropium [place] (Spiriva -) [address] [facility] Last Admin: 06/04/17 09:37 Dose: Not Given Gen: intubated, poorly responsive, tachypneic Heart: RRR Lung: bilateral rhonchi Abd: soft, nontender Ext: + edema Laboratory Results - last 24 hr 06/04/17 06/04/17 06:30 06:30 WBC 25.7 H D RBC 3.51 L Hgb 8.9 L Hct 28.9 L MCV 82.4 MCH 25.5 L MCHC 30.9 L RDW 21.1 H Plt Count 188 D MPV 10.7 Total Counted 100 Neutrophils % No Result Required. Neutrophils % (Manual) 97.0 H* Lymphocytes % No Result Required. Monocytes % (Manual) 3 L Platelet Estimate Adequate Sodium 143 Potassium 5.1 Chloride 107 Carbon Dioxide 22 Anion Gap 14 BUN 130 H* Creatinine 5.2 H Creat Clearance w eGFR 8.02 Random Glucose 205 H Calcium 6.2 L* Phosphorus 7.3 H Magnesium 2.8 H Total Bilirubin 0.4 AST 60 H ALT 187 H Alkaline Phosphatase 90 Total Protein 4.8 L Albumin 1.9 L ASSESSMENT AND PLAN: Acute Hypoxic and Hypercapneic Respiratory Failure Likely Anoxic Encephalopathy Pneumonia UTI Septic Shock Acute Kidney Injury Elevated LFTs likely Ischemic Injury +Troponins likely Demand Ischemia Acute COPD Exacerbation LV Diastolic Dysfunction Pulmonary HTN - continue antibiotics - inhaled bronchodilators standing and PRN - keep CVP 8-12 - lasix as needed - monitor urine output, creatinine - off pressors, maintain MAP >65 - hold sedation to assess mental status - poor prognosis for meaningful recovery, continue discussions regarding goals of care, recommend comfort measures Dr Carranza Critical care time spent in reviewing chart, evaluating patient and formulating plan 36 min
--- NOTE | 2017-06-04 15:33 | PN ---
Progress Note, Physician History of Present Illness: continues to intubated sedated - Current Medication List Current Medications: Active Medications Acetaminophen (Tylenol Suppository -) 325 mg [place] Q4H PRN PRN Reason: FEVER Acetaminophen (Ofirmev Injection -) 1,000 mg IVPB Q6H PRN PRN Reason: FEVER Albuterol Sulfate (Ventolin 0.083% Nebulizer Soln -) 1 amp NEB Q4H PRN PRN Reason: SHORT OF BREATH/WHEEZING Last Admin: 05/28/17 08:07 Dose: 1 amp Atorvastatin Calcium (Lipitor -) 10 mg PO HS [facility] Last Admin: 06/03/17 21:25 Dose: 10 mg Calcium Carbonate (Calcium Carb Oral Suspension -) 500 mg NGT BID [facility] Last Admin: 06/04/17 09:33 Dose: 500 mg Ferrous Sulfate (Feosol -) 325 mg PO TID [facility] Last Admin: 06/04/17 13:23 Dose: 325 mg Heparin Sodium (Porcine) (Heparin -) 5,000 unit SQ TID [facility] Last Admin: 06/04/17 13:24 Dose: 5,000 unit Piperacillin Sod/Tazobactam (Sod 2.25 gm/ Dextrose) 100 mls @ 100 mls/hr IVPB Q6H-IV [facility] Last Admin: 06/04/17 09:47 Dose: 100 mls/hr Latanoprost (Xalatan 0.005% Eye Drops -) 1 drop OU [facility] Last Admin: 06/03/17 21:26 Dose: 1 drop Loratadine (Claritin -) 10 mg PO DAILY [facility] Last Admin: 06/04/17 09:34 Dose: 10 mg Methylprednisolone Sodium Succinate (Solu-Medrol -) 40 mg IVPUSH Q6H-IV [facility] Last Admin: 06/04/17 14:11 Dose: 40 mg Montelukast Sodium (Singulair -) 10 mg PO [facility] Last Admin: 06/03/17 21:25 Dose: 10 mg Multivitamins/Minerals/Vitamin C (Tab-A-Vit -) 1 tab PO DAILY [facility] Last Admin: 06/04/17 09:35 Dose: 1 tab Pantoprazole Sodium (Protonix Iv) 40 mg IVPUSH DAILY [facility] Last Admin: 06/04/17 09:36 Dose: 40 mg Sevelamer Carbonate (Renvela Powder Packet -) 0.8 gm NGT TID [facility] Last Admin: 06/04/17 13:24 Dose: 0.8 gm Tiotropium [place] (Spiriva -) 1 puff IH DAILY [facility] Last Admin: 06/04/17 09:37 Dose: Not Given - Objective Vital Signs: Vital Signs Temperature 98.5 F 06/04/17 06:00 Pulse Rate 109 H 06/04/17 10:00 Respiratory Rate 16 06/04/17 13:50 Blood Pressure 132/72 06/04/17 10:00 O2 Sat by Pulse Oximetry (%) 100 06/04/17 07:44 Constitutional: Yes: No Distress, Calm Cardiovascular: Yes: Regular Rate and Rhythm Respiratory: Yes: Intubated, Mechanically Ventilated Gastrointestinal: Yes: Normal Bowel Sounds, Soft Musculoskeletal: Yes: WNL Extremities: Yes: WNL Neurological: Yes: Other Labs: CBC, BMP 06/04/17 06:30 06/04/17 06:30 INR, PTT INR 0.95 (0.82-1.09) 05/28/17 09:50 Assessment/Plan Problem List - Problems (1) Acute and chronic respiratory failure with hypercapnia Code(s): J96.22 - ACUTE AND CHRONIC RESPIRATORY FAILURE WITH HYPERCAPNIA (2) COPD exacerbation Code(s): J44.1 - CHRONIC OBSTRUCTIVE PULMONARY DISEASE W (ACUTE) EXACERBATION (3) CHF (congestive heart failure) Code(s): I50.9 - HEART FAILURE, UNSPECIFIED Qualifiers: Congestive heart failure type: diastolic Congestive heart failure chronicity: chronic Qualified Code(s): I50.32 - Chronic diastolic (congestive ) heart failure (4) Fracture, hip Code(s): S72.009A - FRACTURE OF UNSP PART OF NECK OF UNSP FEMUR, INIT Qualifiers: Encounter type: initial encounter Fracture type: closed Laterality: left Qualified Code(s): S72.002A - Fracture of unspecified part of neck of left femur, initial encounter for closed fracture (5) Hypertension Code(s): I10 - ESSENTIAL (PRIMARY) HYPERTENSION 6 pneumonia 7 leukocytosis 8 uti plan plan continue abx supportive measures nutrition rest as per icu patient continues to be critical no changes family deciding about further plan cc time 40 min
--- NOTE | 2017-06-04 16:05 | HOSP ---
Subjective - Review of Symptoms Events since last encounter: Hospitalist service covering for Dr. Zuniga. Advised by Joan Mead, Palliative Care RN, family has decided on compassionate weaning this afternoon. ICU team managing. Physical Examination Vital Signs: Vital Signs Temperature 98.5 F 06/04/17 06:00 Pulse Rate 109 H 06/04/17 10:00 Respiratory Rate 16 06/04/17 13:50 Blood Pressure 132/72 06/04/17 10:00 O2 Sat by Pulse Oximetry (%) 100 06/04/17 07:44 Labs: CBC, BMP 06/04/17 06:30 06/04/17 06:30
[2017-06-04] MEDS ORDERED: MORPHINE SULFATE 10 MG/1 ML *VIAL IVPUSH ONE (16:52)
[2017-06-04] MEDS ORDERED: LORazepam 2 MG/ML SDV VIAL IVPUSH PRN (16:53)
[2017-06-04] MEDS ORDERED: MORPHINE 100 MG in SODIUM CHLORIDE 98 ML IVPB SCH (17:00)
[2017-06-04 17:20] VITALS: BP 130/72; TEMP 98.6
[2017-06-05 06:59] VITALS: PULSE 29
--- NOTE | 2017-06-05 07:22 | HOSP ---
Physical Examination Vital Signs: Vital Signs Temperature 98.6 F 06/04/17 12:00 Pulse Rate 29 L 06/05/17 06:00 Respiratory Rate 10 L 06/05/17 06:00 Blood Pressure 130/72 06/04/17 16:00 O2 Sat by Pulse Oximetry (%) 92 L 06/04/17 21:00 Findings/Remarks: Called by RN that there was asystole on telemetry and the patient was unresponsive. On exam, the patient was unresponsive, no spontaneous movement was observed, the patient did not respond to verbal or noxious stimuli. Absent heart and breath sounds for more than 1 minute. Pupils are fixed and dilated. Corneal reflex was absent The patient was pronounced at 07:03am. Son notified by RN Labs: CBC, BMP 06/04/17 06:30 06/04/17 06:30
--- NOTE | 2017-06-05 07:26 | DS ---
Physical Examination Vital Signs: Vital Signs Temperature 98.6 F 06/04/17 12:00 Pulse Rate 29 L 06/05/17 06:00 Respiratory Rate 10 L 06/05/17 06:00 Blood Pressure 130/72 06/04/17 16:00 O2 Sat by Pulse Oximetry (%) 92 L 06/04/17 21:00 Labs: CBC, BMP 06/04/17 06:30 06/04/17 06:30 Discharge Summary Reason For Visit: RESP FAIL,SEPSIS,ACUTE EXACER CHRONIC OBST PULM DI Current Active Problems Asystole (Acute) COPD exacerbation (Acute) Hemodynamic instability (Acute) Lactic acid acidosis (Acute) RSV (respiratory syncytial virus pneumonia) (Acute) Respiratory failure (Acute) Sepsis (Acute) Shock liver (Acute) Condition: Guarded - Instructions Referrals: Kaleb Ahumada MD [Primary Care Provider] - - Home Medications Comprehensive Discharge Medication List: Ambulatory Orders Fluticasone/Salmeterol [Advair 250-50 Diskus] 1 each IH BID 10/15/11 Tiotropium [place] [Spiriva] 18 mcg IH DAILY 10/15/11 Montelukast Na [Singulair -] 10 mg PO HS #0 tablet 10/20/11 Multivitamins [Multivit ([facility] Formulary)] 1 udtab PO DAILY #0 tab 10/20/11 Ferrous Sulfate [Feosol] 325 mg PO TID 01/18/12 Calcium Carbonate/Vitamin D3 [Calcium 600-Vit D3 200 Tablet] 1 each PO DAILY 10/13 Docosahexanoic Acid/Epa [Fish Oil Softgel] 1 each PO DAILY 11/05/12 Potassium Chloride [K-Dur] 20 meq PO DAILY #0 tab.er.prt 11/05/12 Alendronate Sodium [Fosamax] 35 mg PO [facility] 09/01/15 Atorvastatin Ca [Lipitor] 10 mg PO HS 09/01/15 Latanoprost 0.005% Eye Drops [Xalatan 0.005% Eye Drops -] 1 drop OU HS 09/01/15 Diltiazem Cd [Cardizem Cd -] 120 mg PO BID cap.cd.24h 05/07/17 Enoxaparin [Lovenox -] 40 mg SQ DAILY disp.syrin 05/07/17 Loratadine [Claritin -] 10 mg PO DAILY tablet 05/07/17 Mineral Oil/Petrolat,Wht/Water [Eucerin (Small Jar) -] 1 applic TP DAILY jar Polyethylene Glycol 3350 [Miralax 119 gm Btl -] 17 gm PO BID bottle 05/07/17 Prednisone [Deltasone -] 10 mg PO DAILY tablet 05/07/17 Torsemide [Demadex -] 60 mg PO DAILY tablet 05/07/17 Acetaminophen [Tylenol .Regular Strength -] 650 mg PO Q6H PRN 05/25/17 Albuterol 2.5/Ipratropium 0.5 [Duoneb -] 1 amp IH QSHIFT 05/25/17 Ascorbic Acid [Vitamin C -] 500 mg PO TID 05/25/17 Chlorpheniramine/Dextromethorp [Robitussin Long-Acting Liq] 15 ml PO Q6H Docusate Sodium [Colace -] 300 mg PO HS 05/25/17 Menthol/Zinc Oxide [Calmoseptine Ointment] 71 gm TP QSHIFT 05/25/17 Nystatin Oral Suspension - [Nystatin Oral Susp 761713 Units/5 ML -] 500,000 units PO QID 05/25/17 Omeprazole Magnesium [Prilosec Otc] 20 mg PO DAILY 05/25/17 Sodium Chloride Nasal [place] [Olive [place] Nasal [place]] 2 spray NS QSHIFT
== END 2017-06-05 10:12 | disposition expired | DRG 207 ==
LOC: JER 05:32 → JERBED 12:34 → JICU 22:02 → J4W 05-27 17:15 → JICU 05-28 10:34
PROVIDERS: ADMIT Internal Medicine; ATTEND Internal Medicine
PROC: 0BH17EZ Insertion of Endotracheal Airway into Trachea, Via Natural or Artificial Opening (ICD-10-PCS; principal; 2017-05-25)
PROC: 5A1955Z Respiratory Ventilation, Greater than 96 Consecutive Hours (ICD-10-PCS; 2017-05-25)
PROC: 0BH17EZ Insertion of Endotracheal Airway into Trachea, Via Natural or Artificial Opening (ICD-10-PCS; 2017-05-28)
PROC: 0D9670Z Drainage of Stomach with Drainage Device, Via Natural or Artificial Opening (ICD-10-PCS; 2017-05-28)
PROC: 5A12012 Performance of Cardiac Output, Single, Manual (ICD-10-PCS; 2017-05-28)
PROC: 05HM33Z Insertion of Infusion Device into Right Internal Jugular Vein, Percutaneous Approach (ICD-10-PCS; 2017-05-28)
PROC: 3E0G76Z Introduction of Nutritional Substance into Upper GI, Via Natural or Artificial Opening (ICD-10-PCS; 2017-06-01)
DX: J96.22 Acute and chronic respiratory failure with hypercapnia (principal); J12.1 Respiratory syncytial virus pneumonia; K72.00 Acute and subacute hepatic failure without coma; N17.0 Acute kidney failure with tubular necrosis; A41.89 Other specified sepsis; R65.21 Severe sepsis with septic shock; J44.1 Chronic obstructive pulmonary disease with (acute) exacerbation; I50.32 Chronic diastolic (congestive) heart failure; J98.11 Atelectasis; E87.2 Acidosis; I24.8 Other forms of acute ischemic heart disease; J90 Pleural effusion, not elsewhere classified; N39.0 Urinary tract infection, site not specified; N13.30 Unspecified hydronephrosis; G93.1 Anoxic brain damage, not elsewhere classified; I11.0 Hypertensive heart disease with heart failure; D64.9 Anemia, unspecified; J96.21 Acute and chronic respiratory failure with hypoxia; E78.00 Pure hypercholesterolemia, unspecified; F17.200 Nicotine dependence, unspecified, uncomplicated; D72.828 Other elevated white blood cell count; S72.092D Other fracture of head and neck of left femur, subsequent encounter for closed fracture with routine healing; E83.51 Hypocalcemia; I27.20 Pulmonary hypertension, unspecified; I46.9 Cardiac arrest, cause unspecified; Z99.81 Dependence on supplemental oxygen
CPT/HCPCS: 36415; 36600; 71045-TC; 71275-TC; 76775-TC; 80048; 80053; 81003; 81015; 82375; 82550; 82553; 82570; 82803; 82962; 83050; 83605; 83735; 83880; 84100; 84156; 84300; 84484; 84540; 85025; 85610; 85730; 86850; 86900; 86901; 87040; 87086; 87186; 87804; 93005; 93010; 94002; 94010; 94640; 99285-25; J1644